=== PATIENT | female | born 1970 | race Caucasian/White ===

== ENCOUNTER 2022-01-23 15:46 | Outpatient (CLI) | payer BC, SELFPAY ==
--- OUTSIDE RECORDS SUMMARY | 2021-12-27 10:38 | XMS_ITS | Continuity of Care Document ---
:1970 Author Care Team Providers Name Role Phone MD Elian Garduno Primary Care Physician MD Keke Campos Primary Care Physician MD Keke Mendez Admitting Physician Chief Complaint and Reason for Visit Chief Complaint Sore Throat/Pharyngitis Reason for Visit [id number] Pharyngitis Health Concerns Concerns Review problems and other documentation throughout for health concerns. Allergies, Adverse Reactions, Alerts Allergen Type Severity Reaction Last Verified Status Updated Mannitol Allergy Moderate fevers, December 06, Yes Active myalgia, 2021 malaise, and local rash Glatiramer Allergy Moderate fevers, December 06, Yes Active myalgia, 2021 malaise, and local rash Social History Smoking Status Status Start Date End Date Date of Observat ion Ex-smoker (finding) December 07 3:47pm Observation Status Observation Response Date of Response History provided by Patient March 23, 2015 1:08pm Where do you live? Own home/apt March 23, 2015 1:08pm With whom do you live? Significant Other March 23 015 1:08pm Additional Data Assigned Sex Female Problems Active Problems Medical Problem Onset Date Status Endometriosis April 03, 2009 Active Hematochezia April 03, 2009 Active Hysterectomy November 05, 2012 Active Extended Spectrum Beta Lactamase January 17, 2014 Active MS (multiple sclerosis) Active Sepsis Active Allergic reaction caused by a Active drug Recurrent UTI (urinary tract Active infection) Subungual hematoma of digit of Active hand BV (bacterial vaginosis) Active Brain aneurysm Active Leukopenia Active History of shingles Active Strain of left biceps tendon Active On hormone replacement therapy Active Postcoital UTI Active Recurrent candidiasis of vagina Active Eczema Active Status post hysterectomy with Active oophorectomy H/O exploratory laparotomy Active Medications Medication Status Dose Units Route Directions Qty Days Start End Ins tructions Date Date Ascorbic Active 500 MG PO Daily 100 Acid (Vitamin C) 500 Mg TAB Aspirin Active 81 MG PO Daily 100 Biotin Active 1 MG PO Daily Calcium/Magn Active 1 EA PO Daily esium (Calcium & Magnesium 750-465 Mg) 1 Tab TAB Cholecalcife Active 2000 UNIT PO Daily 100 rol (Vitamin D) 2,000 Unit TAB Cranberry-Vi Active 1 CAP PO Daily tamin C-Vitamin E (Cranberry) CAP Cyanocobalam Active 1000 CR OR Daily in (Vitamin B12) 1,000 Cr TAB Dexamethason Active 6 MG PO Daily 18 09 December e 2021 6:35pm Estradiol Active 0.1 MG TD Twice 96 Februar q and (Vivelle-Dot Weekly y , SAT ) 0.1 Mg/24 2021 Hr DIS 2:04pm Magic Active 5 ML PO Four Times December SWISH, g argle AND SPIT Mouthwash Daily as November COM POUND IF FIRST PRODUCT NOT COVERED (Lidocaine/B needed 2021 for ph aryngitis enadryl/Maal 6:35pm ox) (First-Mouth wash Blm) Blm FCO Metronidazol Active 1 EACH PV Bedtime 70 5 Sept 1 e er APPLICATORFUL (Metronidazo , AT HS F OR 5 le Vaginal) 2019 0.75 % GEL 9:21am Multiple Active 1 HER OR Daily Vitamins W/ Minerals (Multi For Her) For Her TAB Nirmatrelvir Active 3 TAB PO Twice A Day 02 January eGFR > 60; TAKE TWO 150 MG NIRMATRELVIR AND ONE 100 MG -Ritonavir , RITONAVIR TWICE DAILY FOR 5 DAYS (Paxlovid 20 2021 X 150 Mg & 3:32pm 10 X 100MG) 1 Tab TAB Tamsulosin Active 0.4 MG PO Daily 01 February Hcl 2015 2:24pm Teriflunomid Active 14 MG PO Daily e (Aubagio) 14 Mg TAB Triamcinolon Active 1 CHEVY TOP Twice A Day 30 Februar e Acetonide y , (Cream) 2021 2:04pm Acetaminophe Disconti 1 TAB PO Every 4 Octobe n/Hydrocodon nued Hours as er r e Bitart needed , (Hydrocodone 2014 2014 -Acetaminoph 8:23am 9:12am en) 1 Tab TAB Acetaminophe Disconti 1 TAB PO Q4-6H Prn November n/Hydrocodon nued , , e Bitart 2012 2012 (Hydrocodone 1:59pm 2:42pm -Acetaminoph en) 7.5 Mg/325 Mg TAB Acetaminophe Disconti 1 TAB PO Q4-6H Prn November n/Hydrocodon nued , , e Bitart 2012 2012 (Hydrocodone 10:07am 1:59pm -Acetaminoph en) 7.5 Mg/325 Mg TAB Acetaminophe Disconti 1 TABLET PO Q4-6H Prn 20 Decem b FOR VICODIN n/Hydrocodon nued er 7.5/750 e Bitart , (Vicodin 2008 7.5/750) 7.5 10:15a Mg/750 Mg m TAB Amoxicillin Disconti 1 TABLET PO Twice Daily Se ptem & Pot nued For 7 Days er ole Clavulanate , (Augmentin) 2014 2014 875 Mg/125 10:27am 8:23am Mg TAB Antifungal Disconti Septem nued ole 2008 3:36pm Aspirin Disconti 325 MG PO Daily 100 Septem nued ole 2019 2:42pm Cephalexin Disconti 500 MG PO Four Times 28 Februar Febru a nued Daily y 2014, 1:41pm 2014 9:05am Ciprofloxaci Disconti 1 TABLET PO Twice A Day January tem n Hcl nued 2015, 2:29pm 2015 3:38pm Ciprofloxaci Disconti 1 TABLET PO Twice A Day September y n Hcl nued 2015 10:49am 2:29pm Ciprofloxaci Disconti 1 TABLET PO Twice Daily February ptem n Hcl nued For 7 Days 2014, 9:45am 2014 1:23pm Ciprofloxaci Disconti 1 TABLET PO Twice A Day December tem n Hcl nued 2013, 10:30am 2013 12:56p m Ciprofloxaci Disconti 500 MG PO Twice A Day 6 uar De cemb n Hcl nued y 24, er (Cipro) 500 2009 1st, Mg TAB 4:59pm 2009 3:23pm Clopidogrel Disconti 75 MG PO Daily 30 Marem Bisulfate nued ole (Plavix) 75 15th, Mg TAB 2019 2:42pm Diphenhydram Disconti 25-50 MG PO Every 6 Octobe ine Hcl nued Hours as er r needed 2014 8:23am 9:12am Diphtheria/T Disconti 0.5 ML IM Once Aprilobe etanus/Acell nued , r Pertussis 2011 05, (Adacel) 0.5 1:06pm 2010 Ml INJ 1:57pm Docusate Disconti 100 MG PO Twice A Day November Sodium nued as needed , , (Colace) 100 2012 2012 Mg CAP 10:07am 2:42pm Doxycycline Disconti 100 MG IV Octobe Hyclate nued r (Doxycycline , ) 100 Mg 2007 SOLN 9:10am Ertapenem Disconti 1000 MG IM Every 24 8 Octobe (Invanz) nued Hours er r 1,000 Mg/10 , Ml VIAL 2014 2014 8:23am 9:12am Estradiol Disconti 0.1 MG TD Twice 24 q TU ES and (Vivelle-Dot nued Weekly er ry SAT ) 0.1 Mg/24 , , Hr DIS 2020 2021 8:10am 2:04pm Estradiol Disconti 0.1 MG TD Twice Marem q TU ES and (Vivelle-Dot nued Weekly er ole SAT ) 0.1 Mg/24 , , Hr DIS 2019 2020 9:21am 8:10am Estradiol Disconti 0.1 MG TD Twice January q TUES and (Vivelle-Dot nued Weekly , ole SAT ) 0.1 Mg/24 2019, Hr DIS 1:01pm 2019 9:21am Estradiol Disconti 0.1 MG TD Twice October q TUES and (Vivelle-Dot nued Weekly , , SAT ) 0.1 Mg/24 2019 2019 Hr DIS 1:28pm 1:01pm Estradiol Disconti 0.1 MG TD Twice 24 October q TUES and (Vivelle-Dot nued Weekly , 27th, SAT ) 0.1 Mg/24 2018 2019 Hr DIS 3:00pm 1:28pm Estradiol Disconti 0.1 MG TD Twice 24 October q TUE S and (Vivelle-Dot nued Weekly y 25th, 1st, SAT ) 0.1 Mg/24 2018 2018 Hr DIS 12:31pm 3:00pm Estradiol Disconti 0.1 MG TD Twice 24 Decembe Februa q TU ES and (Vivelle-Dot nued Weekly r 19, ry SAT ) 0.1 Mg/24 2016, Hr DIS 5:27pm 2018 12:31p m Estradiol Disconti 1 PATCH TD Twice 24 mb Novemb Q TU ES & SAT (Vivelle-Dot nued Weekly r 1st, er ) 0.1 Mg DIS 2014, 9:34am 2015 11:37a m Estradiol Disconti 1 PATCH TD Twice April Q TU ES & SAT (Vivelle-Dot nued Weekly 30, er ) 0.1 Mg DIS 2014 07, 9:25am 2014 9:34am Estradiol Disconti 1 PATCH TD Twice 8 Aprobe Q TUES & SAT (Vivelle-Dot nued Weekly r ) 0.1 Mg DIS 2014 9:25am Estradiol Disconti 1 PATCH TD Twice (Vivelle-Dot nued Weekly er 9, ole ) 0.1 Mg DIS 2014, 3:41pm 2014 1:23pm Estradiol Disconti 1 PATCH TD Twice Aprilem (Vivelle-Dot nued Weekly 9, ole ) 0.1 Mg DIS 2014 03, 1:49pm 2014 3:41pm Estradiol Disconti 0.1 MG TD Twice (Vivelle-Dot nued Weekly er 9th, y ) 0.1 Mg DIS 2013, 1:40pm 2014 2:14pm Estradiol Disconti 1 PATCH TD Twice Aprobe (Vivelle-Dot nued Weekly er r 9, ) 0.1 Mg DIS 2013 1:49pm 1:15pm Estradiol Disconti 0.1 MG TD Twice December (Vivelle-Dot nued Weekly 11th, ole ) 0.1 Mg DIS 2012 9, 2:32pm 2013 1:40pm Estradiol Disconti 1 MG PO Daily Decemb nued y 24th, er 2009 07, 4:58pm 2009 3:23pm Estrogens Disconti 1.25 MG PO Daily Octoberem Conjugated nued 17, ole (Premarin) 2008, 1.25 Mg TAB 10:08am 2008 3:36pm Fluconazole Disconti 200 MG PO Daily December Lisa e 1 tab PO at the onset of symptoms, take a 2nd tab 3 nued y 14, 3rd, days later i f symptoms have not resolved. 2021 2021 2:14pm 12:56p m Fluconazole Disconti 200 MG PO Daily Ta ke 1 tab PO at the onset of symptoms, take a 2nd tab 3 nued er ry days later if symptoms have not resolved. , , 2019 2021 9:21am 2:14pm Fluconazole Disconti 200 MG PO Daily October Take 1 tab PO at the onset of symptoms, take a 2nd tab 3 nued , ole days later if symptoms have not resolved. 2019, 2:29pm 2019 9:21am Fluconazole Disconti 150 MG PO Once 2 October r epeat nu, dose after 72 2018 2019 hours if 3:00pm 8:13am symptoms persist Fluconazole Disconti 150 MG PO Once October repeat nued y , , dose after 7 2 2017 2019 hours if 7:20pm 3:00pm symptoms persist Fluconazole Disconti 150 MG PO Once 2 (Diflucan) nued r , y 150 Mg TAB 2016, 5:27pm 2017 4:15pm Fluconazole Disconti 150 MG PO Once 2 (Diflucan) nued er 150 Mg TAB 2016 5:27pm Fluconazole Disconti 150 MG PO Once 2 September lisa e one (Diflucan) nued r , , tablet today 150 Mg TAB 2015 2016 then repe at 11:37am 2:57pm in 3 days. Fluconazole Disconti 150 MG PO Once January take one (Diflucan) nued , er tablet to day 150 Mg TAB 2015, then repe at 2:24pm 2016 in 3 days. 11:37a m Fluconazole Disconti 150 MG PO Once September take one (Diflucan) nued , tablet to day 150 Mg TAB 2015 2015 then repe at 1:45pm 2:24pm in 3 days. Fluconazole Disconti 150 MG PO Once 2 Septem Ta ke one (Diflucan) nued er ole today and 150 Mg TAB , , repeat in 3 2014 2014 days. 10:27am 1:23pm Fluconazole Disconti 150 MG PO Once February Lisa e one (Diflucan) nued , ole today and 150 Mg TAB 2015 05, repeat in 3 11:30am 2014 days. 10:27a m Fluconazole Disconti 150 MG PO Once Julyr Ta ke one tab (Diflucan) nued , y today. 150 Mg TAB 2012, Repeat in 3 9:56am 2012 days if still 11:29a symptomatic. m Fosfomycin Disconti 3 G OR Once September Tromethamine nued , , (Monurol) 2014 2014 Granules FAB 5:43pm 9:36am Glatiramer Disconti 40 MG SC 3X Per Week Septem Acetate nued ole (Copaxone) , 40 Mg/Ml INJ 2014 8:23am Hydrocodone- Disconti 1-2 TAB PO Every 6 01 February Decemb Acetaminophe nued Hours as , er n (Bartley) 5 needed 2019 07, Mg/325 Mg 9:16pm 2020 TAB 8:52am Hydrocodone- Disconti 1-2 TAB PO Every 6 01 February Ca Acetaminophe nued Hours as , n (Bartley) 5 needed 2019 2019 Mg/325 Mg 11:16am 9:16pm TAB Ibuprofen Disconti 800 MG PO Every 6 December nued Hours as , needed 2021 12:56p m Ibuprofen Disconti 800 MG PO Three Times September nued A Day as , needed for 2019 2019 Pain 8:50am 3:18pm Ibuprofen Disconti 600 MG PO Every 6 November nued Hours , , 2012 2012 10:07am 3:12pm Influenza Disconti 0.5 ML IM Once 05 April Octobe Virus nued 30, r Vaccine 2015 30th, Split 9:37am 2014 (Fluzone 9:38am Quadrivalent (3 Yrs And Older)2015-1 6) 1 Inj INJ Interferon Disconti 1 0.5 SC 3XWEEK Septem Beta-1A nued ole (Rebif) 18th, 22/0.5 INJ 2015 1:23pm Interferon Disconti 1 SC 3 Times Per October Beta-1A nued Week 19, (Rebif) INJ 2012 4:05pm Lactobacillu Disconti 1 EA PO Daily Novemb s nued er (Acidophilus 5th, ) TAB 2014 9:30am Leuprolide Disconti 11.25 MG IM Once July Acetate nued 3rd, y 3rd, (Cpp) 2010 2010 (Lupron 3:53pm 4:06pm Depot-Ped) 11.25 Mg INJ Leuprolide Disconti 11.25 MG IM Once Aprilobe Acetate nued 7th, r 7th, (Cpp) 2009 2009 (Lupron 4:04pm 4:16pm Depot-Ped) 11.25 Mg INJ Leuprolide Disconti 11.25 MG IM Once January Acetate nued 2nd, 2nd, (Cpp) 2009 2009 (Lupron 11:24am 11:26a Depot-Ped) m 11.25 Mg INJ Leuprolide Disconti 11.25 MG IM Every 3 October Acetate nued Minutes 1st, 1st, (Cpp) 2009 2009 (Lupron 11:16am 11:18a Depot-Ped) m 11.25 Mg INJ Leuprolide Disconti 11.25 MG IM Once Aprilobe Acetate nued nd, r (Cpp) 2008, (Lupron 3:48pm 2008 Depot-Ped) 3:55pm 11.25 Mg INJ Levonorgestr Disconti 1 EA IU Once October el (Mirena) nued 15, 15th, 20 Mcg/24 Hr 2010 2010 IUD 11:33am 11:35a m Medroxyproge Disconti 150 MG IM Once Julyr sterone nued 14, y Acetate 2009 14, (Depo-Career Development Facilitator 4:06pm 2009 a 4:07pm Contraceptiv e) 150 Mg/Ml INJ Medroxyproge Disconti 150 MG IM Once October sterone nued 17th, 17th, Acetate 2008 2008 (Depo-Career Development Facilitator 10:03am 10:05a a m Contraceptiv e) 150 Mg/Ml INJ Medroxyproge Disconti 150 MG IM Once sterone nued r , y Acetate 2007, (Depo-Career Development Facilitator 1:05am 2008 a 2:52pm Contraceptiv e) 150 Mg/Ml INJ Medroxyproge Disconti 150 MG IM Once July sterone nued , y Acetate 2008, (Depo-Career Development Facilitator 2:41pm 2008 a 2:42pm Contraceptiv e) 150 Mg/Ml INJ Medroxyproge Disconti 150 MG IM Once sterone nued r , er Acetate 2008 06, (Depo-Career Development Facilitator 9:35am 2007 a 9:37am Contraceptiv e) 150 Mg/Ml INJ Metronidazol Disconti 1 EACH PV Bedtime 70 October 1 e nued , ole APPLICATORFUL (Metronidazo 2019, AT HS F OR 5 le Vaginal) 2:29pm 2019 DAYS 0.75 % GEL 9:21am Metronidazol Disconti 1 EACH PV Bedtime OctoberOctober 04 e nued , APPLICATORFUL (Metronidazo 2018 2019 AT HS F OR 5 le Vaginal) 3:00pm 2:29pm DAYS 0.75 % GEL Metronidazol Disconti 1 EACH PV Bedtime 70 DecembOctober 04 e nued r , APPLICATORFU L (Metronidazo 2016 2018 AT HS F OR 5 le Vaginal) 8:46am 3:00pm DAYS 0.75 % GEL Metronidazol Disconti 1 EACH PV Bedtime 70 Decemb e nued er APPLICATORFUL (Metronidazo , AT HS F OR 5 le Vaginal) 2016 DAYS 0.75 % GEL 8:46am Metronidazol Disconti 1 EACH PV Bedtime 70 Sept 1 e nued er y APPLICATORFUL (Metronidazo , , AT HS F OR 5 le Vaginal) 2011 2012 DAYS 0.75 % GEL 11:00am 11:29a m Metronidazol Disconti 500 MG PO Twice A Day De cemb e nued er er 2009 2:12pm 3:23pm Metronidazol Disconti 500 MG PO Twice A Day July brua e nued , ry 2009, 4:09pm 2009 2:56pm Metronidazol Disconti 500 MG PO Twice A Day 14 be e nued r 2007 9:10am Metronidazol Disconti 1 CHEVY PV Bedtime 70 uar September 03 e Vaginal nued y , , APPLICAT ORFUL (Metrogel 2017 2019 PV AT BEDT NEVA Vaginal) 5:40pm 8:13am 0.75 % GEL Metronidazol Disconti 1 CHEVY PV Bedtime 70 Februar Februa 1 e Vaginal nued y , APPLICAT ORFUL (Metrogel 2017, PV AT BEDT NEVA Vaginal) 7:19pm 2017 0.75 % GEL 5:40pm Metronidazol Disconti 1 CHEVY PV Bedtime 60 September 03 e Vaginal nued r , , APPLICAT ORFUL (Metrogel 2015 2016 PV AT BEDT NEVA Vaginal) 11:37am 2:57pm 0.75 % GEL Metronidazol Disconti 1 X VA Qhs X7 Days October em 1 APPLICATOR e Vaginal nued , ole FULL PV (Metrogel 2011, Vaginal) 4:49pm 2011 0.75 % GEL 10:35a m Misoprostol Disconti 200 MCG PV Once September (Cytotec) nued , , 200 Mcg TAB 2010 2010 11:41am 10:37a m Nitrofuranto Disconti 100 MG PO Twice A Day Ap ril in nued r , , Macrocrystal 2010 2011 s (Macrobid 12:00pm 4:04pm 100 Mg) 100 Mg CAP Nitrofuranto Disconti 100 MG PO Twice A Day Septemberi l in nued , , Macrocrystal 2010 2010 s (Macrobid 9:19pm 10:37a 100 Mg) 100 m Mg CAP Nitrofuranto Disconti 100 MG PO Twice A Day July brua in ed 13th, ry Macrocrystal 2009 24th, s (Macrobid 10:50am 2009 100 Mg) 100 2:56pm Mg CAP Nitrofuranto Disconti 100 MG PO Twice A Day 7 No vemb in nued r 11th, er Macrocrystal 2008, s (Macrobid 12:56pm 2008 100 Mg) 100 3:10pm Mg CAP Nitrofuranto Disconti 100 MG PO Twice A Day December in ed , , Macrocrystal 2008 2008 s (Macrobid 1:17pm 2:44pm 100 Mg) 100 Mg CAP Nitrofuranto Disconti 100 MG PO Twice A Day February e in [facility] , , Monoh/Nitrof 2020 2021 ur Macro 4:46pm 12:56p (Nitrofurant m oin Monohydrate/ Macrocrystal line) 100 Mg CAP Nitrofuranto Disconti 100 MG PO Twice A Day 14 Ma rch in [facility] er , Monoh/Nitrof 2016 ur Macro 2016 2:57pm (Macrobid) 3:59pm 100 Mg CAP Nitrofuranto Disconti 100 MG PO Twice A Day 30 Oc doris Take 1 pill in [facility] as needed er r after sexu al Monoh/Nitrof , , interco urse ur Macro 2014 2014 (Macrobid) 9:08am 9:12am 100 Mg CAP Nitrofuranto Disconti 100 MG PO Twice Daily Se ptem in [facility] For 7 Days er 8th, ole Monoh/Nitrof 2014, ur Macro 2:57pm 2014 (Macrobid) 1:23pm 100 Mg CAP Nitrofuranto Disconti 100 MG PO Twice A Day 6 uar Ap ril in nu y , , Monoh/Nitrof 2014 2014 ur Macro 10:23am 9:36am (Macrobid) 100 Mg CAP Nitrofuranto Disconti 100 MG PO Twice A Day 14 Decembe Se ptem in nued r 5th, ole Monoh/Nitrof 2012, ur Macro 2:47pm 2013 (Macrobid) 12:56p 100 Mg CAP m Nitrofuranto Disconti 100 MG PO Bid X7day July ua in nued , ry Monoh/Nitrof 2012, ur Macro 12:36pm 2012 (Macrobid) 8:27am 100 Mg CAP Nitrofuranto Disconti 100 MG PO Bid X7day Julu ar in nued er y Monoh/Nitrof , , ur Macro 2011 2012 (Macrobid) 11:00am 11:29a 100 Mg CAP m Norethindron Disconti 1 TABLET PO Daily January e-Ethinyl nued , ole Estradiol 2008, (0.4/35) 3:06pm 2008 (Ovcon-35) 2:42pm 0.4 Mg/0.035 Mg TAB Iafut-7-Baul Disconti 1200 MG PO Daily December Ethyl Esters nued , (Fish Oil) 2019 1,200 Mg CAP 3:18pm Oseltamivir Disconti 75 MG PO Twice A Day July luis armando Phosphate nued , ry (Tamiflu) 75 2017, Mg CAP 4:27pm 2017 6:45pm Oxycodone/Ac Disconti 1-2 TAB PO Every 4 October etaminophen nued Hours as , , (Percocet) 5 needed 2016 2016 Mg/325 Mg 4:22pm 11:00a TAB m Oxycodone/Ac Disconti 1 - 2 TAB PO Q6hrs For Aprilo be etaminophen nued Pain as 4th, r 9th, (Percocet) 5 needed 2007 2007 Mg/325 Mg 11:44am 3:04pm TAB Phenazopyrid Disconti 100 MG PO Three Times Se ptem ine Hcl nued A Day as er , ole (Pyridium) needed 2015, 100 Mg TAB 1:51pm 2015 3:38pm Prednisone Disconti 20 MG PO Twice A Day 10 Decembe Faustino h nued r , 2020 9:03am 3:31pm Prednisone Disconti 20 MG PO Twice A Day 10 Februar Dece mb nued y , er 2020 07, 11:30am 2020 8:52am Prednisone Disconti 20 MG PO Twice A Day Decemberem nued , ole 2019, 3:37pm 2019 8:57am Prednisone Disconti 20 MG PO Twice A Day 10 Decembe Febr ua nued r 23, ry 2015 16, 3:05pm 2016 4:07pm Sulfamethoxa Disconti 1 TAB PO Daily 60 Februadecember Ta ke daily zole-Trimeth nued y , when you have oprim 2021 2021 intercourse (Bactrim Ds) 2:14pm 12:56p 800 Mg/160 m Mg TAB Sulfamethoxa Disconti 1 TAB PO Daily 100 Sept Decemb T jennifer one tab zole-Trimeth nued er er PO brynn y oprim , , after each (Bactrim Ds) 2019 2020 episode of 800 Mg/160 9:21am 8:52am interco urse Mg TAB Sulfamethoxa Disconti 1 TAB PO Once as October 1 Tab PO zole-Trimeth nued needed , , daily on days oprim 2018 2019 you have (Bactrim Ds) 3:00pm 8:13am inter course 800 Mg/160 to preven t Mg TAB uti's Sulfamethoxa Disconti 1 TAB PO Once as October one tablet by mouth with intercourse. if develops zole-Trimeth nued needed y , sign s or symptoms of UTI then may increase to twice daily oprim 2017 2018 for 7 days. (Bactrim Ds) 5:40pm 3:00pm 800 Mg/160 Mg TAB Sulfamethoxa Disconti 1 TAB PO Twice A Day 14 7 Fe brua zole-Trimeth nued y oprim 2017, (Bactrim Ds) 7:15pm 2017 800 Mg/160 5:40pm Mg TAB Sulfamethoxa Disconti 1 TAB PO Twice A Day 30 09 January Dece mb Take 1 tab po BID x7 days w/ UTI. Take 1 tab po daily on zole-Trimeth nued , er at you have intercourse. oprim 2016, (Bactrim Ds) 2:33pm 2016 800 Mg/160 3:14pm Mg TAB Sulfamethoxa Disconti 1 TAB PO Daily 40 Novembe Februa t jennifer one tablet daily when you have intercourse. Increase zole-Trimeth nued r , ry to 1 tab BID for 7days for uti symptoms oprim 2015, (Bactrim Ds) 11:37am 2016 800 Mg/160 4:07pm Mg TAB Sulfamethoxa Disconti 1 TAB PO Twice A Day Se ptem zole-Trimeth nued er , ole oprim 2015, (Bactrim Ds) 1:51pm 2015 800 Mg/160 3:38pm Mg TAB Sulfamethoxa Disconti 1 TABLET PO Twice A Day uar A pril zole-Trimeth nued y , , oprim 2014 2014 (Bactrim Ds 9:30am 9:36am (800/160)) 800 Mg/160 Mg TAB Sulfamethoxa Disconti 1 TAB PO Twice A Day Januaryo be zole-Trimeth nued , r , oprim 2013 2013 (Bactrim Ds) 5:39pm 8:05am 800 Mg/160 Mg TAB Sulfamethoxa Disconti 1 TAB PO Twice A Day October l zole-Trimeth nued , , oprim 2011 2011 (Bactrim Ds) 11:33am 4:04pm 800 Mg/160 Mg TAB Tamsulosin Disconti 0.4 MG PO Daily 02 October Hcl nued 2016 2:57pm Tamsulosin Disconti 0.4 MG PO Daily July Hcl nued , , 2015 2015 8:31am 2:24pm Tamsulosin Disconti Unknow PO Daily 30 Hcl nued n Dose ry 2014 4:09pm Tramadol Hcl Disconti 50-100 MG PO Every 6 January nued Hours as , , needed 2019 2021 4:09pm 12:56p m Tramadol Hcl Disconti 50-100 MG PO Every 6 November Decemb nued Hours as , er needed 2016, 11:31am 2016 3:14pm Triamcinolon Disconti 40 MG INJ Once September e Acet nued , , (Kenalog-40) 2019 2019 40 Mg/1 Ml 8:44am 8:57am SUSP Triamcinolon Disconti 1 CHEVY TOP Twice A Day Fe brua e Acetonide nued er ry (Cream) , 2019 9:21am 2:04pm Triamcinolon Disconti 1 CHEVY TOP Twice A Day October em e Acetonide nued (Cream) 2019, 2:29pm 2019 9:21am Triamcinolon Disconti 1 CHEVY TOP Twice A Day October l e Acetonide nued , (Cream) 2018 2019 3:00pm 2:29pm Triamcinolon Disconti 1 CHEVY TOP Twice A Day be Ap ril e Acetonide nued r , (Cream) 2015 2018 11:37am 3:00pm Triamcinolon Disconti 1 CHEVY TOP Twice A Day 17 January Nove mb e Acetonide nued , er (Cream) 2015, 2:24pm 2015 11:37a m Triamcinolon Disconti 1 CHEVY TOP Twice A Day September e Acetonide nued , (Cream) 2015 2015 1:45pm 2:24pm Trimethoprim Disconti 1 TAB PO Twice A Day January be /Sulfamethox nued , r , azole 2010 2010 (Bactrim Ds) 5:39pm 2:36pm 800 Mg/160 Mg TAB Immunizations Immunization Event Date Not Given Dose Nuclear Process 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 Lot Vac cine Reason Number Number Informatio n Statement (VIS) Deta il DTaP January 111979 Influenza April 05, 2010 Influenza April 07 Sanofi 2014 Influenza May 062009 IPV Peds January 111979 Tetanus/Diptheri January 15 a 1982 Tdap April 05 sanofi pasteur [id number] (adolescent/adul 2010 t) Procedures Procedure Date Performed Status METABOLIC PANEL TOTAL CA December 06, 2021 completed SARS-COV-2 COVID-19 AMP PRB December 06, 2021 completed EMERGENCY DEPT VISIT December 07, 2021 completed THER/PROPH/DIAG INJ IV PUSH December 07, 2021 completed TX/PRO/DX INJ NEW DRUG ADDON December 07, 2021 completed IV SOLUTION December 07, 2021 completed DEXAMETHOSONE December 07, 2021 completed SELF ADMINISTERED DRUG December 07, 2021 completed KETOROLAC TROMETHAMINE INJECTION December 07, 2021 complet ed Relevant Diagnostic Tests and/or Laboratory Data Laboratory Results Test Date/Time Result Interpretation Reference Result Perfo rming Site Range Comment Random December 06, 78 60-115 [facility] Glucose [address] [facility] 1:50pm [place] [address] Blood Urea December 06, 13 5-24 [facility] Nitrogen [address] [facility] 1:50pm [place] [address] Creatinine December 06, 0.7 0.5-1.5 [facility] [address] [facility] 1:50pm [place] [address] Estimated December 06, [id number] [facility] Creatinine 2021 [address] [facility] Clearance 1:50pm [place] [address] Sodium Level December 06, 136 135-149 [facility] [address] [facility] 1:50pm [place] [address] Potassium December 06, 3.4 3.6-5.1 [facility] Level [address] [facility] 1:50pm [place] [address] Chloride December 06, 100 96-114 [facility] Level [address] [facility] 1:50pm [place] [address] Carbon December 06, 30 20-32 [facility] Dioxide [address] [facility] Level 1:50pm [place] [address] Calcium December 06, 8.8 8.4-10.6 [facility] Level [address] [facility] 1:50pm [facility] [address] Coronavirus December 06, POSITIVE NEGATIVE The 2019 [facility] (COVID-19)(P 2021 SARS-CoV- novel [address] [facility] [address]) 2:08pm 2 coronavirus [place] [address] (SARS-CoV-2) target nucleic acids are detected by RT-PCR. Vital Signs Vital Reading Result Reference Range Collection Date/ Time Height 67 [in_i] December 06, 2021 1 2:51pm Height 170.18 cm December 06, 2021 1 2:51pm Weight 180 [lb_av] December 06, 2021 1 2:51pm Weight 81.089790 kg December 06, 2021 1 2:51pm Body Temperature 97.2 [degF] December 06, 2021 12:51pm Body Temperature 36.22 Kya December 06, 2021 12:51pm BP Systolic 100 mm[Hg] December 06, 2021 1 2:51pm BP Diastolic 65 mm[Hg] December 06, 2021 1 2:51pm Heart Rate 84 /min December 06, 2021 1 2:51pm Respiratory rate 14 /min December 06, 2021 12:51pm Body surface area 1.93 m2 December 06, 2021 12:51pm BMI (Body Mass Index) 28.2 kg/m2 December 06, 2021 12:51pm Advance Directives Advance Directive Response Recorded Date/Time Does Pt have Health Care No September 26 1:20pm Directive? Has patient completed a No December 07, 2021 3 :47pm Health Care Directive? Insurance Providers Guarantor Eliz Roth Address 1992 [address] [facility] [address] Contact Info. Home Phone: Payer Policy Id Coverage Id Subscriber's Subscriber Id Effective E xpiration Name Date Date Parker [id number] GonzalezJuly 06, [facility] [address] Eliz Simmons 2019 [id number] Encounters Encounter Location(s) Arrival/Admit Date Discharge/Depart Date Provider(s) Departed [facility] December 07, 2021 December 07, 2021 7:07pm [facility] 5:01pm MD Registered [place] December 06, 2021 [facility] 1:30pm A Registered [facility] December 06, 2021 [facility] 1:00pm A Office Visit [place] December 06, 2021 [facility] 1:00pm A Recent Diagnosis Onset Date COVID-19 Functional Status Observation Response Date Recorded Functional Status Independent March 23, 2015 12:46pm Mental Status Observation Response Date Recorded Cognitive Status Alert March 23, 2015 12:46pm Oriented March 23, 2015 12:46pm Assessments Assessment/Plan:COVID-19 infection: She is prescribed Paxlovid in the usual dose for five days. She can continue to use Tylenol and ibuprofen. Plan of Treatment Instructions from visit on: 12/06/21 Please follow the provider's instructions as discussed during your visit. Future Tests Future scheduled test information is unavailable Pending Tests Pending diagnostic test information is unavailable Future Visits Future appointment information is unavailable Referrals to Other Providers Reason for Referral Start Provider Provider Contact Provider Address Referral Date Information Shoaib Garduno Work Phone: [phone] MD [facility] [id number] Saurabh Campos Phone: [facility] Jacobo Davies MD [address] [facility] [phone] Future Procedures Procedure Name Scheduled Date Colonoscopy Diagnostic BABS Bilat Mammo Scrn Future Medications Future medication information is unavailable Patient Instructions Attached Discharge Info Diphenhydramine (By mouth) Ertapenem (By injection) Extended Spectrum Beta Lactamase (GEN) General Allergic Reaction (ED) Goals Ambulatory Goals Reach or maintain optimal well being.
--- NOTE | 2022-01-23 15:45 | CRLHL7_ITS ---
For Patients: As a result of the Century Cures Act, medical imaging exams and procedure reports are released immediately into your electronic medical record. You may view this report before your referring provider. If you have questions, please contact your health care provider. BILATERAL MAMMOGRAM WITH COMPUTER-AIDED DETECTION AND TOMOSYNTHESIS TECHNIQUE: CC and MLO views were obtained. These mammographic images have been obtained using full-field digital technique. These mammographic images were interpreted with the benefit of computer-aided detection. Breast Tomosynthesis was used in this interpretation. COMPARISON FILM: 09/18/2020, 07/22/2019, 07/20/2018. FINDINGS: There are scattered areas of fibroglandular density IMPRESSION: There is no radiographic evidence for malignancy. ASSESSMENT: BI-RADS Category 1: Negative RECOMMENDATION: Routine screening mammogram in 1 year. A lay language report of this examination will be provided to the patient. Jax Randolph M.D. Diagnostic Radiologist [email or web address] OLIVER/[email or web address] buck/Dictated by: Jax Randolph MD @ 01/24/2022 8:38:00 AM (Electronically Signed)
== END 2022-01-23 15:47 | disposition home or self-care (01) ==
LOC: MAMMO 15:47
PROVIDERS: PCP Internal Medicine; Visit Provider Obstetrics & Gynecology
DX: Z12.31 Encounter for screening mammogram for malignant neoplasm of breast (principal)
CPT/HCPCS: 77063; 77067

== ENCOUNTER 2022-05-16 09:02 | Outpatient (CLI) | payer BC, SELFPAY ==
--- NOTE | 2022-05-16 09:15 | CRLHL7_ITS ---
For Patients: As a result of the Cures Act, medical imaging exams and procedure reports are released immediately into your electronic medical record. You may view this report before your referring provider. If you have questions, please contact your health care provider. INDICATION: Follow up multiple sclerosis. TECHNIQUE: Brain MRI without contrast. The following sequences were obtained: Sagittal T1 weighted sequence. DWI and ADC mapping sequences. Axial FLAIR and RAJEEV T2 weighted sequences. COMPARISON: Brain MRI from 07/22/2019. FINDINGS: Large confluent zone of FLAIR hyperintense signal abnormality within the right peritrigonal white matter/centrum semiovale with mild associated volume loss and low T1 signal. Mild ex vacuo dilatation of the right lateral ventricular atrium. Multiple additional smaller oval FLAIR hyperintense lesions within the supratentorial white matter, with many exhibiting a perpendicular orientation to the ventricular system. A few tiny juxtacortical and intermediate deep FLAIR hyperintense lesions as well. These are all stable in appearance compared to the prior exam. Few tiny FLAIR hyperintense lesions within the left superior cerebellar peduncle and brachium pontis. No evidence of acute ischemia. No mass effect or herniation. No hydrocephalus or extra-axial collections. The pituitary gland, parasellar structures and optic chiasm are normal. All the major intracranial vascular structures demonstrate normal flow-related signal. The orbital contents are normal. No calvarial or skull base marrow replacing process. No obstructive sinus disease. No extracranial soft tissue findings. IMPRESSION: 1. Stable examination compared to 07/22/2019. Multiple FLAIR hyperintense lesions within the supratentorial white matter, and to lesser extent the posterior fossa which are compatible with chronic demyelinating plaques in the appropriate clinical setting. There is a large lesion within the right peritrigonal white matter/centrum semiovale with accompanying encephalomalacia which could reflect a large chronic demyelinating plaque or site of chronic subcortical infarct. 2. No evidence of acute ischemia or other acute intracranial pathology. Dictated by Duane Silva MD @ 05/16/2022 12:12:42 PM (Electronically Signed)
--- NOTE | 2022-05-16 10:15 | CRLHL7_ITS ---
For Patients: As a result of the Century Cures Act, medical imaging exams and procedure reports are released immediately into your electronic medical record. You may view this report before your referring provider. If you have questions, please contact your health care provider. INDICATION: Aneurysm follow-up. TECHNIQUE: 3D [id number] magnetic resonance angiography of the head with 3D MIP reconstructions provided. COMPARISON: Brain MRA from 04/03/2021. FINDINGS: Susceptibility artifact anterior communicating artery region from known coiled aneurysm. No new aneurysms elsewhere. No proximal large vessel occlusion. The proximal anterior cerebral arteries are not characterized on this exam due to artifact. The mid to distal portions of the anterior cerebral arteries are patent. The left anterior cerebral artery is dominant. The middle cerebral arteries are patent. The posterior cerebral arteries are patent. The intradural vertebral arteries and basilar artery are patent. The intracranial internal carotid arteries are patent. IMPRESSION: 1. 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 No new aneurysms. 2. Major intracranial arterial vasculature is patent. Dictated by Duane Silva MD @ 05/16/2022 12:31:40 PM (Electronically Signed)
== END 2022-05-16 09:03 | disposition home or self-care (01) ==
LOC: MRI 09:03
PROVIDERS: PCP Internal Medicine; Visit Provider Internal Medicine
DX: G35 Multiple sclerosis (principal); I67.1 Cerebral aneurysm, nonruptured
CPT/HCPCS: 70544; 70551

== ENCOUNTER 2022-07-29 12:40 | Outpatient (CLI) | payer BC, SELFPAY ==
--- NOTE | 2022-07-29 13:00 | MR_ITS ---
[address] [address] Phone:?[phone] Fax:?[phone] Referring Physician Information: Sunil Desouza M.D. [address] [employer] [facility] [address] Phone:?[phone] Fax:?[phone] Patient:Romel Roth D.O.B:?1970 Sex:?Female Phone:?[phone] [facility] MRN:?[id number] Exam Date:?07/29/2022 ? EXAM: MRI of the RIGHT SHOULDER, without contrast CLINICAL: Right shoulder pain with history of rotator cuff repair 2017. Evaluate for rotator cuff tear. COMPARISONS: MRI 09/05/2016. TECHNICAL: MRI sequences of the right shoulder: Axials: PD, PDFS Coronals: PD, T2FS Sagittals: PDFS, T2 SEDATION: None. CONTRAST: None. FINDINGS: Rotator cuff: Supraspinatus/Infraspinatus: High-grade partial articular surface tearing of the distal supraspinatus tendon extends into the junction with the anterior distal supraspinatus tendon, increased compared to prior exam. Mild partial interstitial tearing of the remainder of the infraspinatus tendon appears similar to prior exam. Tendinosis of the distal supraspinatus and infraspinatus tendons appears similar to prior exam. No significant fatty atrophy of the muscle bellies. Teres minor: No tendinosis, tear or atrophy. Subscapularis: Attenuation and irregularity of the distal tendon likely reflects a combination of postop changes and sequelae of prior tendon tearing, with surgical anchors in place at the humeral attachment site of the distal tendon. There is no evidence of full-thickness or retracted tendon tear. There is moderate fatty atrophy of the subscapularis muscle belly about the myotendinous junction, increased compared to prior exam. Bursae: Subacromial-subdeltoid: Minimal bursal fluid. Subcoracoid: No convincing subcoracoid bursal thickening/bursitis. Coracoacromial arch: Acromion morphology: Postoperative changes of prior acromioplasty. Acromiohumeral space: Within normal limits. Coracohumeral space: Within normal limits. Biceps tendon, long head: Postoperative changes of prior biceps tenodesis with biceps tendon fibers seen to extend to the surgical anchor within the proximal humerus. Glenohumeral joint: Physiologic volume of joint fluid. Articular cartilage: Small segment of full-thickness chondral loss involves the superior humeral head as seen on coronal series 4 images 14-15, new compared to prior exam. High-grade chondral loss involving the superior glenoid as seen on coronal series 4 image 13-14, new compared to prior exam. Capsule: No convincing evidence of capsular thickening or injury. Labrum: New postoperative changes are seen to involve the superior labrum. Remainder of the glenoid labrum appears intact as visualized on this nonarthrogram exam. No perilabral cyst identified. Bones: No suspicious marrow signal alteration, fracture or dislocation. There are postoperative changes of prior distal subscapularis tendon repair surgery with associated surgical anchors in place at the anterior humeral attachment site of the distal tendon. There is reactive marrow edema involving the greater tuberosity of the proximal humerus. Subchondral cystic change is seen to involve the superior glenoid, increased compared to prior exam. Acromioclavicular joint: Mild to moderate changes of arthrosis, increased compared to prior examination. No new AC joint injury/widening. IMPRESSION: 1. Postoperative changes of prior distal subscapularis tendon repair surgery. Appearance of the distal subscapularis tendon likely reflects a combination of postoperative changes and sequelae of prior tendon tearing without full- thickness or retracted tendon tear identified. Moderate fatty atrophy involving subscapularis muscle about the myotendinous junction is increased compared to prior exam. 2. High-grade partial tearing of the distal supraspinatus tendon extending into the junction with the anterior distal infraspinatus tendon is increased compared to prior examination. Mild partial interstitial tearing of the remainder of the infraspinatus tendon is similar to prior exam and tendinosis of the distal supraspinatus and infraspinatus tendons similar to prior exam. 3. Postoperative changes of prior acromioplasty. 4. Postoperative changes of prior biceps tenodesis. 5. Small segment of full-thickness chondral loss involving the superior humeral head, new compared to prior exam. High-grade chondral loss involving the superior glenoid is also new compared to prior examination with underlying subchondral cystic change. 6. Mild to moderate AC joint arthrosis, increased compared to prior exam. JCZ Electronically signed on 07/29/2022 4:55:00 PM by Jhony Ames D.O.
== END 2022-07-29 12:41 | disposition home or self-care (01) ==
LOC: MRI 12:41
PROVIDERS: PCP Internal Medicine; Visit Provider Orthopaedic Surgery Sports Medicine
DX: M25.511 Pain in right shoulder (principal); M75.101 Unspecified rotator cuff tear or rupture of right shoulder, not specified as traumatic; M19.011 Primary osteoarthritis, right shoulder
CPT/HCPCS: 73221

== ENCOUNTER 2023-05-07 15:03 | Outpatient (CLI) | payer BC, SELFPAY ==
--- NOTE | 2023-05-07 15:20 | CRLHL7_ITS ---
For Patients: As a result of the Cures Act, medical imaging exams and procedure reports are released immediately into your electronic medical record. You may view this report before your referring provider. If you have questions, please contact your health care provider. BILATERAL SCREENING MAMMOGRAM WITH COMPUTER-AIDED DETECTION AND TOMOSYNTHESIS TECHNIQUE: CC and MLO views were obtained. These mammographic images have been obtained using full-field digital technique. These mammographic images were interpreted with the benefit of computer-aided detection. Breast Tomosynthesis was used in this interpretation. COMPARISON FILM: 01/23/22, 09/18/20, 07/22/19. FINDINGS: There are scattered areas of fibroglandular density IMPRESSION: There is no radiographic evidence for malignancy. ASSESSMENT: BI-RADS Category 1: Negative RECOMMENDATION: Routine screening mammogram in 1 year. A lay language report of this examination will be provided to the patient. Jax Randolph M.D. Diagnostic Radiologist [email or web address] Transcribed: 1:03 p.vasquez buck/Dictated by: Jax Randolph MD @ 05/08/2023 10:00:00 AM (Electronically Signed)
== END 2023-05-07 15:04 | disposition home or self-care (01) ==
LOC: MAMMO 15:03
PROVIDERS: PCP Internal Medicine; Visit Provider Internal Medicine
DX: Z12.31 Encounter for screening mammogram for malignant neoplasm of breast (principal)
CPT/HCPCS: 77063; 77067

== ENCOUNTER 2023-06-25 13:30 | Outpatient (CLI) | payer OTHER, BC, SELFPAY ==
--- NOTE | 2023-06-25 13:45 | CRLHL7_ITS ---
For Patients: As a result of the Century Cures Act, medical imaging exams and procedure reports are released immediately into your electronic medical record. You may view this report before your referring provider. If you have questions, please contact your health care provider. Indication: Sciatica. Technique: Multiplanar, multisequence MRI of the lumbar spine was performed without intravenous contrast. Comparison: None relevant available. Findings: There are 5 lumbar type vertebral segments identified. The vertebral body heights are maintained without evidence of fracture. There is no discrete T1 hypointense marrow infiltrating process. Partially visualized T11 vertebral body hemangioma. The conus medullaris terminates at L1-2, normal. Cauda equina appears unremarkable. T12-L1: No spinal canal or neural foraminal stenosis. L1-2: No spinal canal or neural foraminal stenosis. L2-3: Right foraminal disc protrusion resultant mild neural foraminal narrowing. Mild left neural foraminal narrowing secondary to disc bulge and facet hypertrophy. L3-4: Right foraminal disc protrusion results in mild to moderate neural foraminal narrowing. Mild left neural foraminal narrowing. No spinal canal narrowing. L4-5: Disc bulge with facet hypertrophy results in mild spinal canal. Mild neural foraminal narrowing secondary to disc bulging and facet arthropathy. L5-S1: Disc bulge combined with facet hypertrophy results in mild spinal canal narrowing. Moderate to severe left and [id number] right neural foraminal narrowing. Mild sacroiliac joint osteoarthritis. Impression: 1. At L2-3, small right foraminal disc protrusion with mild neural foraminal narrowing. 2. At L3-4, right foraminal disc protrusion resulting in mild to moderate neural foraminal narrowing. 3. At L4-5, mild spinal canal and neural foraminal narrowing. 4. At L5-S1, moderate to severe left and mild to moderate right neural foraminal narrowing. Dictated by Christopher Beatty MD @ 06/26/2023 11:35:44 AM (Electronically Signed)
== END 2023-06-25 13:31 | disposition home or self-care (01) ==
LOC: MRI 13:36
PROVIDERS: PCP Internal Medicine; Visit Provider Internal Medicine
DX: M54.30 Sciatica, unspecified side (principal); M51.26 Other intervertebral disc displacement, lumbar region; M51.27 Other intervertebral disc displacement, lumbosacral region
CPT/HCPCS: 72148

== ENCOUNTER 2023-06-27 21:29 | Emergency (ER) | payer OTHER, BC, SELFPAY ==
[2023-06-27 21:36] VITALS: BP 121/83; PULSE 86; RESP 16; TEMP 35.7; O2SAT 98
--- NOTE | 2023-06-27 23:28 | ED_ITS ---
HPI - Extremity Injury (Lower) General Time Seen by Provider: 23:28 Date Seen: 06/27/23 Chief Complaint: Extremity Pain/Injury, Lower Stated Complaint: left hip and leg pain Time Seen by Provider: 06/27/23 23:27 Source: patient, RN notes reviewed and old records reviewed Mode of arrival: ambulatory Limitations: no limitations History of Present Illness HPI Narrative: This 52-year-old female is coming in with complaint of severe left gluteus and back of leg pain. She is also feeling in her groin. She is getting pain down to her knee. Her leg will feel numb and tingly all the way down to the foot. She had an injury about 3 weeks ago, did have an MRI. I reviewed the MRI. She initially was on tramadol, is now oxycodone, it is not helping. She has a history of a brain bleed from an aneurysm, avoids NSAIDs and blood thinners. She states she has not taken prednisone yet. She is awaiting a call from Dr. Gamez for possible injection. She notes no bowel or bladder dysfunction. Leg is not weak. She does have underlying MS which is stable. She states she cannot get comfortable, cannot sleep, is having extreme pain in the leg, nothing is helping. She is wondering if she actually has a torn muscle in her gluteus instead. I have reviewed with them that a torn muscle is not going to give numbness and tingling. She does have degenerative changes on her MRI but there is most definitely more significant left-sided symptoms at L5-S1: Impression: 1. At L2-3, small right foraminal disc protrusion with mild neural foraminal narrowing. 2. At L3-4, right foraminal disc protrusion resulting in mild to moderate neural foraminal narrowing. 3. At L4-5, mild spinal canal and neural foraminal narrowing. 4. At L5-S1, moderate to severe left and mild to moderate right neural foraminal narrowing. Related Data Home Medications Medication Instructions Recorded Confirmed estradiol 0.1 mg/24 hr semiweekly 1 patch transdermal 07/02/22 06/15/23 transdermal patch nortriptyline 25 mg capsule 25 mg PO QDAY 07/02/22 06/15/23 tamsulosin 0.4 mg capsule ea PO 07/02/22 06/15/23 teriflunomide 14 mg tablet 14 mg PO 07/02/22 06/15/23 (Aubagio) aspirin 81 mg chewable tablet 1 tab PO DAILY 07/15/22 06/15/23 Previous Rx's Medication Instructions Recorded estradiol 0.1 mg/24 hr semiweekly 1 patch transdermal 2XW #24 ea 09/29/22 transdermal patch fluconazole 200 mg tablet 200 mg PO QDAY #2 tabs 09/29/22 metronidazole 0.75 % (37.5 mg/5 1 appful vaginal QDAY 5 days #70 09/29/22 gram) vaginal gel grams prednisone 20 mg tablet 20 mg PO BID #10 tabs 06/09/23 nifedipine 10 mg capsule 10 mg PO BID #60 caps 06/15/23 tramadol 50 mg tablet 50 mg PO Q8H PRN pain #30 tabs 06/15/23 oxycodone 5 mg tablet 5 mg PO Q4H PRN pain #30 tabs 06/24/23 Allergies Allergy/AdvReac Type Severity Reaction Status Date / Time glatiramer (copolymer 1) Allergy Verified 06/15/23 16:48 mannitol Allergy fever, Verified 06/15/23 16:48 myalgia, malaise, local rash PFSH PFSH Medical History Chilblains ?T69.1XXA - Chilblains, initial encounter (ICD-10) Sciatica ?M54.30 - Sciatica, unspecified side (ICD-10) Foot pain ?M79.673 - Pain in unspecified foot (ICD-10) Yeast infection of the vagina ?B37.31 - Acute candidiasis of vulva and vagina (ICD-10) Subungual hematoma of digit of hand ?S60.10XA - Contusion of unspecified finger with damage to nail, initial encounter (ICD-10) Sepsis ?A41.9 - Sepsis, unspecified organism (ICD-10) Recurrent urinary tract infection ?N39.0 - Urinary tract infection, site not specified (ICD-10) Recurrent candidiasis of vagina ?B37.31 - Acute candidiasis of vulva and vagina (ICD-10) Postcoital urinary tract infection ?N39.0 - Urinary tract infection, site not specified (ICD-10) On hormone replacement therapy ?Z79.890 - Hormone replacement therapy (ICD-10) Leukopenia ?D72.819 - Decreased white blood cell count, unspecified (ICD-10) History of herpes zoster ?Z86.19 - Personal history of other infectious and parasitic diseases (ICD- 10) Hematochezia (04/03/09) ?K92.1 - Melena (ICD-10) Endometriosis (04/03/09) ?N80.9 - Endometriosis, unspecified (ICD-10) Eczema ?L30.9 - Dermatitis, unspecified (ICD-10) Bacterial vaginosis ?N76.0 - Acute vaginitis (ICD-10) ?B96.89 - Other specified bacterial agents as the cause of diseases classified elsewhere (ICD-10) Cerebral aneurysm (2020) ?I67.1 - Cerebral aneurysm, nonruptured (ICD-10) Multiple sclerosis ?G35 - Multiple sclerosis (ICD-10) Surgical History Status post hysterectomy with oophorectomy ?Z90.710 - Acquired absence of both cervix and uterus (ICD-10) ?Z90.721 - Acquired absence of ovaries, unilateral (ICD-10) History of exploratory laparotomy ?Z98.890 - Other specified postprocedural states (ICD-10) Status post right rotator cuff repair (10/10/16) ?Z98.890 - Other specified postprocedural states (ICD-10) Family History (Updated 07/11/22 @ 10:34 by Joie Rivas ~ [facility], [facility]) Sister Multiple sclerosis Breast cancer Maternal Grandmother Stroke Maternal Grandfather Stroke Paternal Grandfather Stroke Paternal Grandmother Breast cancer Mother Heart disease Pancreatic cancer Father Lung cancer Stomach cancer Social History Smoking Status: Never smoker Do you use any of these nicotine containing products: None Second hand tobacco smoke exposure: No Little interest or pleasure in doing things: not at all Feeling down, depressed, or hopeless: not at all Exam Const: Vital Signs, click to edit/add: Vital Signs - 24 hr 06/27/23 21:36 Temperature 96.3 F L Pulse Rate [Left P ulse Oximeter] 86 Respiratory Rate 16 Blood Pressure [Ri ght Upper Arm] 121/83 Pulse Oximetry 98 Oxygen Delivery Me thod Room Air Patient is alert, interactive, no apparent distress. She is ambulatory into the ED of her own accord. She has 5/5 strength throughout both lower extremities. She has normal light touch sensation, no edema. Her gait is normal. She can heel and toe walk without difficulty. There is no midline tenderness over spine. Both gluteus have no visible deformity on appearance. She has no palpable tenderness over the superior aspect of the gluteus. Did review MRI findings on the left side in explained the nerve impingement with a foraminal narrowing that is moderate to severe on that side. Discussed how inflammation around the nerve that supplies the sensation to the lower extremity gives the actual pain symptoms within the leg. She does not have to have back pain for her symptoms to be present. Documenting provider has reviewed patient's vital signs: yes Course Vital Signs Vital signs: Initial Vital Signs Temperature 96.3 F L 06/27/23 21:36 Temperature Source Temporal Artery Scan 06/27/23 21:36 Pulse Rate 86 06/27/23 21:36 Pulse Rhythm Regular 06/27/23 21:36 Respiratory Rate 16 06/27/23 21:36 Blood Pressure 121/83 06/27/23 21:36 Blood Pressure Mean 95 06/27/23 21:36 Blood Pressure Position Sitting 06/27/23 21:36 Pulse Oximetry 98 06/27/23 21:36 Oxygen Delivery Method Room Air 06/27/23 21:36 Vital Signs Temperature 96.3 F L 06/27/23 21:36 Pulse Rate 86 06/27/23 21:36 Respiratory Rate 16 06/27/23 21:36 Blood Pressure 121/83 06/27/23 21:36 Pulse Oximetry 98 06/27/23 21:36 Oxygen Delivery Method Room Air 06/27/23 21:36 Temperature 96.3 F L 06/27/23 21:36 Pulse Rate 86 06/27/23 21:36 Respiratory Rate 16 06/27/23 21:36 Blood Pressure 121/83 06/27/23 21:36 Pulse Oximetry 98 06/27/23 21:36 Oxygen Delivery Method Room Air 06/27/23 21:36 Discharge Plan Discharge Clinical Impression: Acute lumbar radiculopathy Patient Disposition: Home, Self-Care Condition: Stable Instructions: Lumbar Radiculopathy (ED) Additional Instructions: Start prednisone, take with food. Can use Tylenol 1000 mg baseline for pain management, supplement with the oxycodone as needed per bottle directions. Have also written for Flexeril 10 mg up to 3 times a day, this is more of a muscle relaxant. This can be sedating, may have to see if it does cause you drowsiness and avoid operation of vehicles or machinery if this is the case. Can continue with physical therapy, await phone call by Dr. Gamez. If you develop bowel or bladder dysfunction, are having muscular/motor weakness, need to be re-evaluated emergently. Activity Level: Activity as Tolerated Prescriptions: No Action fluconazole 200 mg tablet 200 mg PO QDAY Qty: 2 12RF metronidazole 0.75 % (37.5mg/5 gram) gel 1 appful vaginal QDAY 5 Days Qty: 70 12RF estradiol 0.1 mg/24 hr patch semiweekly 1 patch transdermal 2XW Qty: 24 4RF Rx Instructions: apply 1 patch for 3 days alternating with 1 patch for 4 days each week for 3 wks per 4-wk cycle prednisone 20 mg tablet 20 mg PO BID Qty: 10 0RF tamsulosin 0.4 mg capsule PO estradiol 0.1 mg/24 hr patch semiweekly 1 patch transdermal nortriptyline 25 mg capsule 25 mg PO QDAY Aubagio 14 mg tablet 14 mg PO aspirin 81 mg tablet,chewable 1 tab PO DAILY nifedipine 10 mg capsule 10 mg PO BID Qty: 60 2RF tramadol 50 mg tablet 50 mg PO Q8H PRN (Reason: pain) Qty: 30 0RF oxycodone 5 mg tablet 5 mg PO Q4H PRN (Reason: pain) Qty: 30 0RF Follow Up/Referrals: Jacobo Campos MD [Primary Care Provider] - Stand Alone Forms: [employer] Info Instructions
== END 2023-06-28 00:04 | disposition home or self-care (01) ==
PROVIDERS: Emergency Provider Family Medicine; PCP Internal Medicine
DX: M54.16 Radiculopathy, lumbar region (principal)
CPT/HCPCS: 99283

== ENCOUNTER 2023-07-22 09:15 | Outpatient (RCR) | payer OTHER, BC, SELFPAY ==
--- NOTE | 2023-06-17 18:24 | PT.OPEX ---
Please review and sign the attached physical therapy evaluation completed on 06/17/23. Thank you. PT [facility] Outpatient Eval PT [facility] Outpatient Eval Start: 06/17/23 07:59 Freq: Status: Active Protocol: Document 06/17/23 10:14 TLQ (Rec: 06/17/23 18:18 TLQ [id number]) E-signed By Marie Coates DPT Physical Therapy Outpatient Evaluation Insurance Information Insurance Name Blue Cross/Blue Shield,Workman 's Comp Medical Diagnosis Sciatica, unspecified side M54 .30 Treating Diagnosis Pain in left leg M79.605 Lumbar radiculopathy M54.16 Muscle weakness M62.81 Referring MD Jacobo Campos MD Subjective Subjective Patient states last Thursday she was knocked over by a 70# dog , the next days she had pain in her left leg that goes all the way down to her toes. Describes pain as a throbbing down the back and into the front of her leg, even has pain in her groin. Gets numbness and tingling in her toes. Patient is currently on light duty, 90% of her job is walking. Walking is her most painful and limited activity at this time. Patient isn't able to sleep because of the pain, pain will radiate into her leg if she sleeps on her back. Symptoms are most painful around 3-4 in the afternoon, makes it painful to walk on. Pain improves with application of heat. Denies changes in bowel/bladder. States she has a clicking in her hip, feels like something is out of place. Taking Tramadol, not sure if its making a difference. X-ray of L hip performed on at [facility] with the following impression: Mild degenerative joint disease left hip. No acute fracture. 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 Occupation [place] [employer] Preferred Name Eliz or Delores Precautions Therapy Limitations/Systems Review Not Limited Objective Other/Pertinent Objective TRUNK AROM flexion: fingertips to floor extension: 100% rotation: L 50%, R 75% lateral flexion: fingertips to joint line HIP AROM WFL HIP STRENGTH flexion: L 4-, R 5 extension: L 3+, R 4+ abduction: L 4+, R 5 adduction: 5 B external rotation: L 3+, R 4- internal rotation: L 4-, R 4+ SPECIAL TESTS LACY (+) FADIR (-) Slump test (+) SLR: NT due to time Manual traction (+) improves symptoms Active SLR: NT due to time Symptom relief with PA at R PSIS TTP: glute med/min, piriformis , quadratus femoris, L PSIS, lumbar parapsinals JOINT MOBILITY: normal lumbar spine mobility, tender with PAs at L3-5 Functional Test Performed & Score LEFS: score 8/80 Assessment Assessment/Impression Patient is a 52 year old female who presents to outpatient physical therapy to address left lower extremity radicular symptoms of one week duration. Patient states she was stepping out of her trunk last Thursday when her dog pulled on its leash causing her to be knocked over onto her hands and knees with a twisting motion. Since then she has had throbbing pain that extends down the back of her left leg, into her left groin and down her left fierro. She also gets numbness and tingling that extends down into her left foot/toes. Symptoms currently limit the majority of the patient's daily activities, including: walking, sitting, standing, and sleeping. She has been placed on light duty at work as she is on her feet for 90% of the work day but is unable to tolerate this amount of activity at this time. Patient 's symptoms appear to be lumbar and sacral radicular in nature. Patient had positive slump test on the L, symptoms improved with manual distraction of the left lower extremity. Patient had tenderness in the L glutes/ piriformis/quadratus femoris that improved with skilled STM /TPR. She was instructed how to perform this intervention at home with use of a tennis ball. Patient also had tenderness in her lower lumbar paraspinals, L PSIS, and with gentle PA mobilizations at L3 -5. I spent time educating the patient on today's examination findings, she verbally agreed to the POC. She was provided with an initial HEP to reduce symptom severity. Based on examination findings the patient is appropriate for skilled physical therapy interventions to return patient to unrestricted work duty and meet the goals as outlined below. Primary Functional Limitations walking, sleeping, sitting, daily activities, muscle weakness Plan of Care Rehabilitation Potential Good Physical Therapy Goals In 4 visits: - Patient will report 50% improvement in radicular symptoms for improved quality of sleep. - Patient will tolerate walking 5 minutes prior to symptom onset. In 8-10 visits: - Patient will report >75% improvement in radicular symptoms in order to return to regular duty at work. - Score on LEFS will improve to >17/80 (MCID 9 points) to indicate functional improvements. - Patient will tolerated walking up to 30 minutes prior to symptom onset. - Patient will adhere to HEP to manage symptoms IND. Treatment Plan/Direct Interventions Manual Therapy,Neuromuscular Re-ed,Self-Care/Home Management,Therapeutic Activities,Therapeutic Exercises,Traction (Mechanical ) Frequency/Duration 1x/week for 8-10 weeks/visits Patient Will Be Discharged From Therapy Completion of LTG(s),Skills Plateau,Independent w/HEP, Independently Progressing Evaluation Billing Untimed Code Treatment Minutes 30 Complexity Low Certification Information Initial Certification Date 06/17/23 Provider Signature Shows Agreement With POC & Medical Necessity Physician Signature & Date Requested Please Sign/Date Here Physician Comment/Change : Physician NPI Number #
== END 2023-09-25 10:42 | disposition home or self-care (01) ==
PROVIDERS: PCP Internal Medicine; Visit Provider Internal Medicine
DX: M54.30 Sciatica, unspecified side (principal); M79.605 Pain in left leg; M54.16 Radiculopathy, lumbar region; M62.81 Muscle weakness (generalized); Z51.89 Encounter for other specified aftercare
CPT/HCPCS: 97012; 97110; 97140; 97161

== ENCOUNTER 2023-07-24 12:18 | Outpatient (CLI) | payer OTHER, BC, SELFPAY ==
--- OUTSIDE RECORDS SUMMARY | 2023-07-24 12:21 | XMS_ITS | Clinical Summary ---
Author Name Unknown Organization [facility] Address [address] [place] [id number] Care Team Providers Care Photolith Operator Name Role Phone Jacobo Campos MD Primary Care Provider Erick Hickman MD Unavailable [phone] Boy Rousseau MD Unavailable [phone] Allergies Active Allergy Reactions Criticality Noted Date Comments Glatiramer Other (See Comments) High 03/26/2015 Skin and fever Medications Medication Sig Dispensed Refills Start Date End Date Status Multiple Vitamins-Calcium (ONE-A-DAY WOMENS FORMULA PO) Take by mouth daily 0 Active Cholecalciferol (VITAMIN D) 2000 UNITS CAPS Take 2,000 Units by mouth 0 Active Calcium Carbonate-Vitamin D (CALCIUM + D PO) Take by mouth daily 0 Active Cyanocobalamin (VITAMIN B-12 PO) Take 1 tablet by mouth daily 0 Active estradiol (VIVELLE-DOT) 0.1 MG/24HR BIW patch 0 08/11/2016 Active fluconazole (DIFLUCAN) 150 MG tablet Take 150 mg by mouth 0 02/18/2016 Active metroNIDAZOLE (METROGEL) 0.75 % vaginal gel 0 08/11/2016 Active CRANBERRY PO Take 1 tablet by mouth daily 0 Active BIOTIN PO Take 1 tablet by mouth daily 0 Active triamcinolone (ARISTOCORT HP) 0.5 % external cream 0 10/31/2019 Active ibuprofen (ADVIL/MOTRIN) 800 MG tablet 0 10/31/2019 Active HYDROcodone-acetami nophen (NORCO) 5-325 MG tablet 0 01/27/2020 Active Ascorbic Acid (VITAMIN C) 500 MG CAPS 0 Active vitamin E 400 units TABS Take 400 Units by mouth daily 0 Active acetaminophen (TYLENOL) 500 MG tablet Take 500-1,000 mg by mouth every 6 hours as needed for mild pain 0 Active tamsulosin (FLOMAX) 0.4 MG capsuleIndications: Neurogenic bladder Take 1 capsule (0.4 mg) by mouth daily 90 capsule 3 09/25/2022 Active nortriptyline (PAMELOR) 25 MG capsuleIndications: Nonintractable headache, unspecified chronicity pattern, unspecified headache type Take two capsules at bedtime 180 capsule 3 09/25/2022 Active teriflunomide (AUBAGIO) 14 MG tabletIndications:M ultiple sclerosis (H) Take 1 tablet (14 mg) by mouth daily Only available through select specialty pharmacies 90 tablet 3 05/01/2023 Active Active Problems Problem Noted Date Diagnosed Date Intracranial aneurysm 11/23/2019 Leukopenia 01/25/2015 Multiple sclerosis 09/15/2013 Encounters Date Type Department Care Team Description 04/30/2023 Telephone [facility] [address] [address] Erick Hickman MD Medication Request (teriflunomide (AUBAGIO) 14 MG tablet ) 04/30/2023 MyC Medical Advice [facility] [address] [place] [phone] Tamara Mccullough from Last 3 Months Family History Medical History Relation Comments Multiple Sclerosis Sister Relation Status Comments Sister Social History Tobacco Use Types Packs/Day Years Used Date Smoking Tobacco: Former Smokeless Tobacco: Never Tobacco Cessation:Counseling Given: Not Answered Alcohol Use Standard Drinks/Week Comments Yes 0 (1 standard drink = 0.6 oz pur e alcohol) occasional PHQ-2 Answer Date Recorded PHQ-2 Score 0 09/25/2022 Adolescent Education Answer Date Record ed Getting School Help Needed Not on file 03/27 Sex and Gender Information Value Date Recorded Sex Assigned at Not on file Gender Identity Not on file Sexual Orientation Not on file Last Filed Vital Signs Vital Sign Reading Time Taken Comments Blood Pressure 124/77 09/25/2022 9:00 AM CDT Pulse 69 09/25/2022 9:00 AM CDT Temperature 36.6 ??C (97.8 ??F) 05/25/2020 8 :33 AM FINANCE ANALYST Respiratory Rate 16 05/25/2020 12:3 2 PM FINANCE ANALYST Oxygen Saturation 98% 09/25/2022 9:0 0 AM CDT Inhaled Oxygen Concentration - - Weight 85.2 kg (187 lb 12.8 oz) 09/25/2022 9:00 AM CDT with shoes on Height 170.2 cm (5' 7) 08/16/2020 10:5 6 AM FINANCE ANALYST Body Mass Index 29.41 08/16/2020 10:56 AM FINANCE ANALYST Plan of Treatment Upcoming Encounters Date Type Department Care Team (Late st Contact Info) Description 09/24/2023 9:00 AM CDT Office Visit [facility] Multiple Sclerosis [address] [address] Erick Hickman MD [address] [place] [address] - [id number] [place] [address] Health Maintenance Due Date Last Done Comments ANNUAL REVIEW OF HM ORDERS 1972 CT COLONOGRAPHY 1972 FIT 1972 FLEX SIG 1972 HEPATITIS B IMMUNIZATION (1 of 3 - 3-dose series) 1972 MAMMO SCREENING 1972 URINE DRUG SCREEN 1972 YEARLY PREVENTIVE VISIT 1972 sDNA (Cologuard) 1972 COVID-19 Vaccine (#1) 1977 Pneumococcal Vaccine: Pediatrics (0 to 5 Years) and At-Risk Patients (6 to 64 Years) (1 of 2 - PCV) 1978 IPV IMMUNIZATION (4 of 4 - 5-dose series) 07/14/1980 01/12/1980, 01/12/1980, 1972 COLONOSCOPY 1982 COLORECTAL CANCER SCREENING 1982 HIV SCREENING 09/21/1987 HEPATITIS C SCREENING 1990 ZOSTER IMMUNIZATION (1 of 2) 09/21/1991 PAP 1993 LIPID 2017 DTAP/TDAP/TD IMMUNIZATION (5 - Td or Tdap) 04/15/2021 04/15/2011, 01/15/1983, 01/12/1980, Additional history exists INFLUENZA VACCINE (#1) 2023 05/04/2015, 2009 PHQ-2 (once per calendar year) 2023 09/25/2022, 06/03/2022, 09/26/2021, Additional history exists ADVANCE CARE PLANNING 11/23/2024 11/24/2019 HPV IMMUNIZATION Aged Out No longer e ligible based on patient's age to complete this topic MENINGITIS IMMUNIZATION Aged Out No l onger eligible based on patient's age to complete this topic RSV MONOCLONAL ANTIBODY Aged Out No l onger eligible based on patient's age to complete this topic Medical Devices Implanted Type Area Director Sales And Marketing Device Identifier Shelf Expiration Date Model / Serial / Lot Embolic Substance/Dev ice Web Sl 4x3-11/23/2019 Implanted:Qty : 1 on 11/23/2019 by Boy Rousseau MD Embolic Substance/D evice Right: Carotid MICROVENTION 02/18/2020 [id number] / / [id number] Stent Neuroform [place] 3x21- 0 Implanted:Qty : 1 on 11/23/2019 by Boy Rousseau MD Stent Right: Carotid CHAYITO 11/17/2023 [id number] / / [id number] Care Teams Photolith Operator Relationship Specialty Start Date End Date Jacobo Campos MD [facility] [address] [place] [address] PCP - General Internal Medicine 09/08/13 Erick Hickman MD [address] [place] [address] - [id number] [address] Assigned Neuroscience Provider 04/27/20 Boy Rousseau MD [address] [place] [address] [id number] [place], [place] [id number] Assigned Surgical Provider 04/27/20
--- OUTSIDE RECORDS SUMMARY | 2023-07-24 12:21 | XMS_ITS | Clinical Summary ---
Author Name Unknown Organization [facility] Address [place], [place] [address] Care Team Providers Care Spinning Frame Cleaner Name Role Phone Jacobo Campos MD Primary Care Provider [phone] Allergies Active Allergy Reactions Criticality Noted Date Comments Glatiramer Acetate Other - Describe In Comment Field High 03/26/2015 Skin and fever Medications Medication Sig Dispensed Refills Start Date End Date Status multivitamin (MVI) tablet Take 1 tablet by mouth once daily. 0 02/25/2010 Active fluconazole (DIFLUCAN) 150 mg tablet Take 1 tablet by mouth one time. 1 tablet 0 02/18/2016 Active tamsulosin (FLOMAX) 0.4 mg capsuleIndications: Neurogenic bladder Take 1 capsule by mouth once daily after a meal. 90 capsule 3 02/18/2016 Active cholecalciferol (VITAMIN D-3) 2,000 unit capsule Take 1 capsule by mouth once daily. 0 07/24/2016 Active cyanocobalamin (VITAMIN B-12) 1,000 mcg tablet Take 1 tablet by mouth once daily. 0 07/24/2016 Active estradiol 0.1 mg/24 hr (ESTRADERM; VIVELLE-DOT) patch 0 08/11/2016 Active metroNIDAZOLE 0.75% vaginal (METROGEL) 0.75 % vaginal gel 0 08/11/2016 Active biotin 100 mg/gram powd Mix 1 Tablet in liquid then take by mouth. 0 Active calcium carbonate-vitamin D3 500 mg(1,250mg) -200 unit pwpk Mix in liquid then take by mouth. 0 Active cranberry fruit extract (CRANBERRY POWDER ORAL) Take 1 Tablet by mouth. 0 Active ascorbic acid, vitamin C, 500 mg cap Take 1 Capsule by mouth once daily. 0 Active vitamin E acid succinate (vitamin E succinate) 400 unit tab Take 400 units by mouth. 0 Active durable medical equipment (DME)Indications:Ce rvical disc herniation,Cervical radiculopathy,Neck pain, chronic Cervical Traction Unit for home use. Length of Use: 99 months 1 Each 0 12/21/2020 Active teriflunomide 14 mg tab Take 1 tablet (14 mg) by mouth daily 90 Tablet 3 05/01/2023 Active tiZANidine (ZANAFLEX) 4 mg tabletIndications:L umbar radiculopathy Take 1 Tablet (4 mg) by mouth every 6 hours if needed for Muscle Spasm. 24 Tablet 1 07/13/2023 Active methylPREDNISolone (Medrol, Yovany,) 4 mg tabletIndications:N lexi pain, chronic Take by mouth as instructed per packaging. 1 Package 0 10/17/2020 Discontinue d(*Med complete/Re gimen complete/Le jimmy of care change) Active Problems Problem Noted Date Diagnosed Date Neurogenic bladder 02/18/2016 Recurrent UTI 02/18/2016 Multiple sclerosis 10/12/2010 COUGH 02/25/2000 Encounters Date Type Department Care Team Description 07/21/[address] [address] Oneal Gamez MD Question for 07/24 injection 07/21/[address] [address] Oneal Gamez MD [facility] 07/15/[address] [address] Oneal Gamez MD Questions 07/14/[address] [address] Oneal Gamez MD Questions (call back ) 07/14/[address] [address] Oneal Gamez MD [facility]ointment [facility]20[facility] [address] Oneal Gamez MD Questions 07/13/2023 9:20 AM SAP ABAP PROGRAMMER [facility] [address] [facility] [address] Oneal Gamez MD [facility] (Consult work comp back, left hip/groin and leg date of injury:06/08/23) 07/13/2023 Telephone [facility] [address] [facility] [address] Oneal Gamez MD Questions (Work Report abiltiy emailed over and orders for Muscle Relaxer) 07/13/2023 Travel 06/30/2023 Telephone [facility] [address] [facility] [address] Oneal Gamez MD Questions (MRI) 06/25/2023 Orders Only [facility] Scanner 1 scan: (1-Ord) [facility], LUMBAR SPINE W/O CONTRAST, 06/25/2023 06/25/2023 Orders Only [facility] Scanner 1 scan: (1-Ord) [facility], LUMBAR SPINE WO CON, 06/25/2023 from Last 3 Months Immunizations Name Administration Dates Next Due DTP 1972 MMR 02/20/1978 Oral Polio Vaccine 01/12/1980,1972 Family History Medical History Relation Name Comments Cancer-prostate Brother Stroke Mother Stroke Sister raven Relation Name Status Comments Brother Mother Sister raven Alive Social History Tobacco Use Types Packs/Day Years Used Date Smoking Tobacco: Former Smokeless Tobacco: Never Tobacco Cessation:Counseling Given: Yes Comments:Smoking History Packs/day: <1 Alcohol Use Standard Drinks/Week Comments Yes 7 (1 standard drink = 0.6 oz pur e alcohol) Alcoholic Drinks/day: <1 Social Connections Answer Date Recorded Frequency of Communication with Friends and Fami ly Not on file 07/13/2023 Financial Resource Strain Answer Date R ecorded Difficulty of Paying Living Expenses Not on file 07/06/2021 Difficulty of Paying Living Expenses Not on file 07/06/2021 Sex and Gender Information Value Date Recorded Sex Assigned at Not on file Gender Identity Not on file Sexual Orientation Not on file Obstetrics History Last Filed Vital Signs Vital Sign Reading Time Taken Comments Blood Pressure 126/80 07/13/2023 9:25 AM SAP ABAP PROGRAMMER Pulse 83 07/13/2023 9:25 AM SAP ABAP PROGRAMMER Temperature 36.7 ??C (98.1 ??F) 07/13/2023 9:25 AM CS T Respiratory Rate 16 09/02/2016 9:30 AM SAP ABAP PROGRAMMER Oxygen Saturation 99% 07/13/2023 9:25 AM SAP ABAP PROGRAMMER Inhaled Oxygen Concentration - - Weight 80 kg (176 lb 5.9 oz) 01/27/2017 5:46 PM CDT Height 170 cm (5' 6.93) 08/04/2016 9:28 AM SAP ABAP PROGRAMMER Body Mass Index 27.68 08/04/2016 9:28 AM SAP ABAP PROGRAMMER Plan of Treatment Upcoming Encounters Date Type Department Care Team (Late st Contact Info) Description 07/24/2023 1:00 PM SAP ABAP PROGRAMMER Office Visit [facility] [address] [place] [address] Oneal Gamez MD [address] [place] [address] Arrived 08/06/2023 1:40 PM SAP ABAP PROGRAMMER Office Visit [facility] [address] [place] [address] Oneal Gamez MD [address] [place] [address] Health Maintenance Due Date Last Done Comments COVID-19 vaccine series (#1) 03/23/1973 Tdap 09/21/1983 HIV for age 15-65 09/21/1987 Hepatitis C screening for ag e 18-79 1990 Tetanus booster 1992 Pap test for age 21-65 05/21/2010 7, 09/04/2004 Depression screening for age 12+ 07/24/2017 07/24/2016 BMI (ht and wt on same day) for age 18+ 08/04/2017 08/04/2016, 07/24/2016, 02/18/2016 Colonoscopy through age 75 2017 Lipids for age 45-75 2017 Mammogram for age 45-75 2017 Zoster (shingles) series for age 50+ (1 of 2) 2022 Influenza for age 50-64 03/06/2023 Pneumococcal series for age 6-64 Aged Out No longer eligible b ased on patient's age to complete this topic Procedures Procedure Name Priority Date/Time Associated Diagnosis Comments AMB EPIDURAL STEROID INJECTION BRANDI 07/24/2023 8:26 AM SAP ABAP PROGRAMMER Encounter related to worker's compensation claim Lumbar radiculopathy Lumbar disc herniation Hip strain, left, initial encounter Hip pain, left SCAN-MRI INTERPRETATION 06/25/20 12:00 AM SAP ABAP PROGRAMMER SCAN-MRI INTERPRETATION 06/25/20 12:00 AM SAP ABAP PROGRAMMER from Last 3 Months Results * SCAN-MRI INTERPRETATION (06/25/2023 12:00 AM SAP ABAP PROGRAMMER) Only the most recent of2 resultswithin the time period is included. Anatomical Region Laterality Modality Other Scanner OTHER from Last 3 Months Care Teams Spinning Frame Cleaner Relationship Specialty Start Date End Date Jacobo Campos MD [address] [place] [id number] PCP - General Internal Medicine 10/25/21
--- OUTSIDE RECORDS SUMMARY | 2023-07-24 12:22 | XMS_ITS | Encounter Summary ---
Author Name Unknown Organization [place] Address [address] [place] [address] Care Team Providers Care Condenser Operator Name Role Phone Jacobo Campos MD Primary Care Provider Erick Hickman MD Unavailable [phone] Boy Rousseau MD Unavailable Reason for Visit * Reason Onset Date Comments Refill Request 03/18/2023 Encounter Details Date Type Department Care Team (Late Contact Info) Description 03/18/2023 Refill [facility] Multiple Sclerosis [address] [address] Erick Hickman MD [address] [place] [address] - [id number] [address] Refill Request Social History Tobacco Use Types Packs/Day Years Used Date Smoking Tobacco: Former Smokeless Tobacco: Never Alcohol Use Standard Drinks/Week Comments Yes 0 (1 standard drink = 0.6 oz pur e alcohol) occasional PHQ-2 Answer Date Recorded PHQ-2 Score 0 09/25/2022 Sex and Gender Information Value Date Recorded Sex Assigned at Not on file Gender Identity Not on file Sexual Orientation Not on file documented as of this encounter Plan of Treatment Upcoming Encounters Date Type Department Care Team (Late Contact Info) Description 09/24/2023 9:00 AM CDT Office Visit [facility] Multiple Sclerosis [address] [address] Erick Hickman MD [address] [place], [place] [address], [place] [address] documented as of this encounter Visit Diagnoses Diagnosis Multiple sclerosis (H) Multiple sclerosis documented in this encounter Care Teams Condenser Operator Relationship Specialty Start Date End Date Jacobo Campos MD [facility] [address] [place] [address] PCP - General Internal Medicine 09/08/13 Erick Hickman MD [address] [place] [address] Assigned Neuroscience Provider 04/27/20 Boy Rousseau MD [address] [place], [place] [address], [place] [address] Assigned Surgical Provider 04/27/20 documented as of this encounter
--- OUTSIDE RECORDS SUMMARY | 2023-07-24 12:22 | XMS_ITS | Referral Summary ---
Author Name Unknown Organization [place] Address [address] [place] [address] Care Team Providers Care Personal Development Educator Name Role Phone Jacobo Campos MD Primary Care Provider Erick Hickman MD Unavailable [phone] Boy Rousseau MD Unavailable Encounters Date Type Department Care Team Description 04/30/2023 Telephone [facility] [address] [address] Erick Hickman MD Medication Request (teriflunomide (AUBAGIO) 14 MG tablet ) 04/30/2023 MyC Medical Advice [facility] [address] [facility] 1st [place] [address] Tamara Mccullough from Last 3 Months Allergies Active Allergy Reactions Criticality Noted Date [...] aneurysm 11/23/2019 Leukopenia 01/25/2015 Multiple sclerosis 09/15/2013 Social History Tobacco Use Types Packs/Day Years [...] ??C (97.8 ??F) 05/25/2020 8 :33 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 Respiratory Rate 16 05/25/2020 12:3 2 PM WELDING MACHINE TENDER Oxygen Saturation 98% 09/25/2022 9:0 0 AM CDT Inhaled Oxygen Concentration - - Weight 85.2 kg (187 lb 12.8 oz) 09/25/2022 9:00 AM CDT with shoes on Height 170.2 cm (5' 7) 08/16/2020 10:5 6 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 Body Mass Index 29.41 08/16/2020 10:56 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 Plan of Treatment Upcoming Encounters Date Type Department Care Team (Late st Contact Info) Description 09/24/2023 9:00 AM CDT Office Visit [facility] Multiple Sclerosis [address] [address] Erick Hickman MD [address] [place] [address] - [id number] [address] Medical Devices Implanted Type Area Licensing Registration Examiner Device Identifier Shelf Expiration Date Model / Serial / Lot Embolic Substance/Dev ice Web Sl 4x3-11/23/2019 Implanted:Qty : 1 on 11/23/2019 by Boy Rousseau MD Embolic Substance/D evice Right: Carotid MICROVENTION 02/18/2020 [id number] / / [id number] Stent Neuroform [place] 3x21- 0 Implanted:Qty : 1 on 11/23/2019 by Boy Rousseau MD Stent Right: Carotid CHAYITO 11/17/2023 [id number] / / [id number] Care Teams Personal Development Educator Relationship Specialty Start Date End Date Jacobo Campos MD [facility] [address] [place] [address] PCP - General Internal Medicine 09/08/13 Erick Hickman MD [address] [place] [address] [id number] [address] Assigned Neuroscience Provider 04/27/20 Boy Rousseau MD [address] [place], [place] [address], [place] [address] Assigned Surgical Provider 04/27/20
--- OUTSIDE RECORDS SUMMARY | 2023-07-24 12:22 | XMS_ITS | Encounter Summary ---
Author Name Unknown Organization [facility] Address [address] [place] [address] Care Team Providers Care Labor Arbitrator Name Role Phone Jacobo Campos MD Primary Care Provider Erick Hickman MD Unavailable [phone] Boy Rousseau MD Unavailable [phone] Reason for Visit * Reason Comments MS RECHECK Annual follow up Encounter Details Date Type Department Care Team (Late st Contact Info) Description 09/25/2022 9:00 AM CDT Office Visit [facility] [address] [address] Erick Hickman MD [address] [place] [address] - [id number] [place] [address] MS (multiple sclerosis) (H) (Primary Dx); Neurogenic bladder; Nonintractable headache, unspecified chronicity pattern, unspecified headache type; Cerebral aneurysm without rupture Social History Tobacco Use Types Packs/Day Years [...] on file Sexual Orientation Not on file COVID-19 Exposure Response Date Recorded In the last 10 days, have qian thornton been in contact with someone who was confirmed or suspected to have Coronavirus/COVID-19? 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 Continue tamsulosin and Aubagio 3. Blood tests today 4. 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 In 2010, she developed left optic neuritis and was diagnosed with multiple sclerosis based on MRI imaging. She was started on interferon beta for disease modifying therapy. She then switched to glatiramer acetate, but did not tolerate the injections. Since 2014, she has been on teriflunomide. Overall, she has felt stable since her last clinic appointment. Occasionally, she has left leg painprimarily at the hip. When she stretched or flexes the muscles, the symptoms resolve. She denies changes in gait, imbalance, or falls. She notes drinking a lot of water and uses the restroom frequently. She takes tamsulosin and this is beneficial. No incontinence or retention. She continues to have occipital headache that radiates to the temples (pounding quality). She has aheadache about every 2-3 days with 1 severe headache about once per week. She has been taking teroflunomide as prescribed and not missing doses. Allergies: Allergies Allergen Reactions ??? Copaxone [Glatiramer] Other (See Comments) Skin and fever PHYSICAL EXAM: BP 124/77 (BP Location: Left arm, Patient Position: Sitting, Cuff Size: Adult Regular) Pulse 69 Wt 85.2 kg (187 lb 12.8 oz) SpO2 98% BMI 29.41 kg/m?? General: No acute distress. HEENT: Normocephalic, atraumatic. Sclera anicteric. No nasal drainage or epistaxis. CV: Extremities appear to be appropriately perfused. Pulmonary: Breathing comfortably on room air. No accessory muscle use. GI/: Soft, non-distended. MSK: No LE edema. Integument: Warm, dry. No jaundice. MSE: Alert and conversant. Oriented to self, location, month/year. Follows simple commands. CN: EOMI, no nystagmus or double vision. Pupils are 2-3mm, round, reactive to light. Facial sensation intact to light touch and symmetric along V1-V3. Facial movements symmetric. Hearing is intact toconversation. Equal palate elevation. Tongue protrudes without deviation. Motor: Normal bulk and tone. No abnormal movements. 5/5 strength in the upper and lower extremities. Reflexes: 2+ biceps, brachioradialis, patellar reflexes. No clonus. Toes downgoing/equivocal. Sensory: Intact to light touch and vibration in the upper and lower extremities. Coordination: FNF and HS without ataxia or dysmetria. Rapid alternating movements intact. Gait: Ambulates with assistive device. Normal casual gait that is narrow-based. Tandem gait intact. LABS: CBC 09/26/2021: WBC 4.7, hemoglobin 13.7, platelets 245 Hepatic function 09/22/2021: AST 28, ALT 28, alk phos 58, total bili 0.3, direct bili 0.1 IMAGING: Brain MRI 05/16/2022: Personally reviewed the imaging and there does not appear to be new lesions concerning for demyelination on T2/FLAIR sequencing. ASSESSMENT & PLAN: This is a 52-year-old female who presents for follow-up of multiple sclerosis and is currently taking teriflunomide. Overall, symptoms are stable and neurologic examination today does not show abnormal findings. She is tolerating teriflunomide well and her most recent brain MRI on 05/16/2022 was stable and did not show new areas concerning for demyelination. Previous labs were over a year ago and so we will checkblood work today since she remains on disease modifying therapy. She continues to have headaches. We discussed that daily caffeine and analgesia (acetaminophen) mayresult in rebound headaches. We recommend that she limit use of analgesic medications as much as possible, ideally less than 14 days/month. She did find some relief with nortriptyline 25 mg, which can be increased further and she is agreeable to this. She does not have side effects on this medication. Multiple Sclerosis -Labs today: CBC and liver function -Continue teriflunomide Urinary hesitancy -Continue tamsulosin Headaches -Increase nortriptyline to 50mg daily -Limit analgesia as able since this can cause rebound headaches Follow-up in 1 year The patient was seen and discussed with the attending neurologist, Dr. Hickman, who agrees withthe assessment and plan. Ewelina Pearl MD Neurology PGY-4 Attending physician: I saw and evaluated the patient with Dr. Pearl and I agree with her findings and plan of care as documented above. The patient is clinically stable with no evidence of active inflammatory demyelination on current disease modifying therapy with teriflunomide. Blood tests to be performed today as above for routine monitoring of this medication. Regarding previously treated aneurysm, plan per Dr. Rousseau of neurointerventional radiology is to repeat MRA in about 2 years (i.e., 2023), which we will arrange at that time. I will increase her dose of nortriptyline to 50 mg at bedtime to try to improve headache control. She was cautioned on risk of rebound headache with frequent use of [id number] analgesics. Remainder as above. Erick Hickman MD Petroleum Engineer of Neurology [facility] documented in this encounter Nursing Notes * Reinaldo Pavon - 09/25/2022 9:00 AM CDT Chief Complaint Patient presents with ??? MS ??? RECHECK Annual follow up Vitals were taken and medications were reconciled. Reinaldo Pavon, EMT 9:03 AM documented in this encounter Plan of Treatment Upcoming Encounters Date Type Department Care Team (Late st Contact Info) Description 09/24/2023 9:00 AM CDT Office Visit [facility] [address] [address] Erick Hickman MD [address] [place] [address] - [id number] [place] [address] documented as of this encounter Results * Hepatic panel (09/25/2022 10:04 AM CDT) Pathologist [facility] Protein Total 6.8 6.4 - 8.3 g/dL 09/25/2022 10:31 AM CDT [facility] Albumin 4.6 3.5 - 5.2 g/dL 09/25/2022 10:31 AM CDT [facility] Bilirubin Total 0.4 <=1.2 mg/dL 09/25/2022 10:31 AM CDT [facility] Alkaline Phosphatase 59 35 - 104 U/L 09/25/2022 10:31 AM CDT [facility] AST 21 10 - 35 U/L 09/25/2022 10:31 AM CDT [facility] ALT 20 10 - 35 U/L 09/25/2022 10:31 AM CDT [facility] Bilirubin Direct <0.20 0.00 - 0.30 mg/dL 09/25/2022 10:31 AM CDT [facility] Blood STRUCTURE OF LEFT UPPER LIMB / Unknown Venipuncture / Unknown 09/25/2022 10:04 AM CDT 09/25/2022 10:04 AM CDT Erick Hickman MD LAB - BLOOD ORDER [facility] - [address] 1st Floor [place] [address] documented in this encounter Visit Diagnoses Diagnosis MS (multiple sclerosis) (H)- Primary Multiple sclerosis Neurogenic bladder Neurogenic bladder, NOS Nonintractable headache, unspecified chronicity pattern, unspecified headache type Cerebral aneurysm without rupture Cerebral aneurysm, nonruptured documented in this encounter Care Teams Labor Arbitrator Relationship Specialty Start Date End Date Jacobo Campos MD [facility] [address] [place] [address] PCP - General Internal Medicine 09/08/13 Erick Hickman MD [address] [facility] - [id number] [place] [address] Assigned Neuroscience Provider 04/27/20 Boy Rousseau MD 9 [facility] [id number] [place] [address] Assigned Surgical Provider 04/27/20 documented as of this encounter
--- OUTSIDE RECORDS SUMMARY | 2023-07-24 12:22 | XMS_ITS | Encounter Summary ---
Author Name Unknown Organization [place] Address [address] [place] [address] Care Team Providers Care Green Chain Offbearer Name Role Phone Jacobo Campos MD Primary Care Provider Guerita Holbrook RN Unavailable Erick Hickman MD Unavailable [phone] Boy Rousseau MD Unavailable [phone] Reason for Visit * Reason Onset Date Comments Call Back 11/28/2020 medical card for flight Encounter Details Date Type Department Care Team (Late st Contact Info) Description 11/28/2020 Telephone [facility] Neurology Clinic [address] [address] Boy Rousseau MD [address] [place] [address] [id number] [place] [address] Call Back (medical card for flight ) Social History Tobacco Use Types Packs/Day Years Used Date Smoking Tobacco: Former Smokeless Tobacco: Never Alcohol Use Standard Drinks/Week Comments Yes 0 (1 standard drink = 0.6 oz pur e alcohol) occasional PHQ-2 Answer Date Recorded PHQ-2 Score 0 08/16/2020 Sex and Gender Information Value Date Recorded Sex Assigned at Not on file Gender Identity Not on file Sexual Orientation Not on file documented as of this encounter Patient Instructions * Patient Instructions* Dian Gibbs RN - 11/28/2020 11:36 AM CDT Regarding: Eliz Roth : 1970 CEREBRAL DEVICES IMPLANTED 11/23/2019: EMBOLIC SUBSTANCE/DEVICE WEB SL 4X3 STENT NEUROFORM ATLAS [id number] 11/23/2019 documented in this encounter Miscellaneous Notes * Telephone Encounter - Alecia Magallon CMA - 11/30/2020 2:24 PM CDT Spoke to patient let her know it is ok to fly without medical card per DIVINE Bearden I did asked patient if she wanted me to send her the information that was sent to me by RN patient stated no she just wanted to know if it was ok for her to fly without medical card. Patient aware and has no other questions or concerns at this time. * Telephone Encounter - Joselyn Everett - 11/28/2020 11:36 AM CDT [facility] Call Center Phone Message May a detailed message be left on voicemail: yes Reason for Call: Other: Pt calling in she is needing a medical card as she is going on a plane and [employer] is requiring a medical card from her brain surgery, please call back to discuss further Action Taken: Message routed to: [facility] neuro Travel Screening: Not Applicable documented in this encounter Plan of Treatment Upcoming Encounters Date Type Department Care Team (Late st Contact Info) Description 09/24/2023 9:00 AM CDT Office Visit [facility] Multiple Sclerosis Clinic [address] [address] Erick Hickman MD [address] [place] [address] - [id number] [place], [place] [address] documented as of this encounter Visit Diagnoses Not on filedocumented in this encounter Care Teams Green Chain Offbearer Relationship Specialty Start Date End Date Jacobo Campos MD [facility] [address] [place] [address] PCP - General Internal Medicine 09/08/13 Guerita Holbrook, RN Specialty Large Sheetfed Press Operator Neurology 06/22/15 02/28/21 Erick Hickman MD 9 [facility] - [id number] [address] Assigned Neuroscience Provider 04/27/20 Boy Rousseau MD [id number], [place] [address] Assigned Surgical Provider 04/27/20 documented as of this encounter
--- OUTSIDE RECORDS SUMMARY | 2023-07-24 12:22 | XMS_ITS | Encounter Summary ---
Author Name Unknown Organization [place] Address [address] [place] [address] Care Team Providers Care Rehab Assistant Name Role Phone Jacobo Campos MD Primary Care Provider Erick Hickman MD Unavailable [phone] Boy Rousseau MD Unavailable [phone] Encounter Details Date Type Department Care Team (Latest Contact Info) Description 09/25/2022 Travel Social History Tobacco Use Types Packs/Day Years [...] Recorded In the last 10 days, have yo u been in contact with someone who was confirmed or suspected to have Coronavirus/COVID-19? No / Unsure 09/25/2022 9:54 AM CDT documented as of this encounter Plan of Treatment Upcoming Encounters Date Type Department Care Team (Late st Contact Info) Description 09/24/2023 9:00 AM CDT Office Visit [facility] Multiple Sclerosis [address] [phone] Erick Hickmna MD [address] [place] [address] - [id number] [place] [address] documented as of this encounter Visit Diagnoses Not on filedocumented in this encounter Care Teams Rehab Assistant Relationship Specialty Start Date End Date Jacobo Campos MD [facility] [address] [place] [address] PCP - General Internal Medicine 09/08/13 Erick Hickman MD [address] [place] [address] [address] Assigned Neuroscience Provider 04/27/20 Boy Rousseau MD [address] [place], [place] [id number], [place] [address] Assigned Surgical Provider 04/27/20 documented as of this encounter
--- OUTSIDE RECORDS SUMMARY | 2023-07-24 12:22 | XMS_ITS | Encounter Summary ---
Author Name Unknown Organization [facility] Address [address] [place] [address] Care Team Providers Care Donor Floor Technician Name Role Phone Jacobo Campos MD Primary Care Provider Erick Hickman MD Unavailable Boy Rousseau MD Unavailable Reason for Visit * Reason Onset Date Comments Medication Compliance Issues 03/31/2023 Cov erage exception form Encounter Details Date Type Department Care Team (Late st Contact Info) Description 03/31/2023 Telephone [facility] S[facility] [address] [address] Erick Hickman MD [address] [place] [address] - [id number] [place] [address] Medication Compliance Issues (Coverage exception form) Social History Tobacco Use Types Packs/Day Years [...] on file documented as of this encounter Miscellaneous Notes * Telephone Encounter - Myesha Goodman - 03/31/2023 10:02 AM CDT [facility] Call Center Phone Message May a detailed message be left on voicemail: yes Reason for Call: Medication Question or concern regarding medication Prescription Clarification Name of Medication: teriflunomide (AUBAGIO) 14 MG tablet [[id number]] (Order [id number]) Prescribing Provider: Erick Hickman MD Pharmacy: NA What on the order needs clarification? Caller Stated the Pt would need a Coverage Exception letter in order to continue the process for the medication under the plan, the form can be filled out on [employer], the pts coverage ends April 05. Action Taken: Message routed to: [facility] Neurology Travel Screening: Not Applicable documented in this encounter Plan of Treatment Upcoming Encounters Date Type Department Care Team (Late st Contact Info) Description 09/24/2023 9:00 AM CDT Office Visit [facility] Multiple Sclerosis [address] [phone] Erick Hickman MD [address] [place] [address] documented as of this encounter Visit Diagnoses Not on filedocumented in this encounter Care Teams Donor Floor Technician Relationship Specialty Start Date End Date Jacobo Campos MD [facility] [address] [place] [address] PCP - General Internal Medicine 09/08/13 Erick Hickman MD [address] [place] [address] Assigned Neuroscience Provider 04/27/20 Boy Rousseau MD [address] [place], [place] [address], [place] [address] Assigned Surgical Provider 04/27/20 documented as of this encounter
--- OUTSIDE RECORDS SUMMARY | 2023-07-24 12:22 | XMS_ITS | Encounter Summary ---
Author Name Unknown Organization [facility] Address [address] [place] [address] Care Team Providers Care Ward Aide Name Role Phone Jacobo Campos MD Primary Care Provider Erick Hickman MD Unavailable [phone] Boy Rousseau MD Unavailable [phone] Encounter Details Date Type Department Care Team (Late Contact Info) Description 09/25/2022 10:15 AM CDT Lab [facility] [address] [address] MS (multiple sclerosis) (H) Social History Tobacco Use Types Packs/Day Years [...] Description 09/24/2023 9:00 AM CDT Office Visit [facility] [address] [phone] Erick Hickman MD [address] [facility] - [id number] [place] [address] documented as of this encounter Procedures Procedure Name Priority Date/Time Associated Diagnosis Comments CBC WITH PLATELETS AND DIFFERENTIAL Routine 09/25/2022 10:04 AM CDT MS (multiple sclerosis) (H) CBC WITH PLATELETS & DIFFERENTIAL Routine 09/25/2022 10:04 AM CDT MS (multiple sclerosis) (H) HEPATIC FUNCTION PANEL Routine 09/25/2022 10:04 AM CDT MS (multiple sclerosis) (H) documented in this encounter Results * CBC with platelets and differential (09/25/2022 10:04 AM CDT) WBC Count 4.0 4.0 - 11.0 10e3/uL 09/25/2022 10:08 AM CDT [facility] RBC Count 4.78 3.80 - 5.20 10e6/uL 09/25/2022 10:08 AM CDT [facility] Hemoglobin 13.5 11.7 - 15.7 g/dL 09/25/2022 10:08 AM CDT [facility] Hematocrit 42.3 35.0 - 47.0 % 09/25/2022 10:08 AM CDT [facility] MCV 89 78 - 100 fL 09/25/2022 10:08 AM CDT [facility] MCH 28.2 26.5 - 33.0 pg 09/25/2022 10:08 AM CDT [facility] MCHC 31.9 31.5 - 36.5 g/dL 09/25/2022 10:08 AM CDT [facility] RDW 14.0 10.0 - 15.0 % 09/25/2022 10:08 AM CDT [facility] Platelet Count 247 150 - 450 10e3/uL 09/25/2022 10:08 AM CDT [facility] % Neutrophils 56 % 09/25/2022 10:08 AM CDT [facility] % Lymphocytes 28 % 09/25/2022 10:08 AM CDT [facility] % Monocytes 13 % 09/25/2022 10:08 AM CDT [facility] % Eosinophils 2 % 09/25/2022 10:08 AM CDT [facility] % Basophils 1 % 09/25/2022 10:08 AM CDT [facility] % Immature Granulocytes 0 % 09/25/2022 10:08 AM CDT [facility] NRBCs per 100 WBC 0 <1 /100 023 10:08 AM CDT [facility] Absolute Neutrophils 2.2 1.6 - 8.3 10e3/uL 09/25/2022 10:08 AM CDT [facility] Absolute Lymphocytes 1.1 0.8 - 5.3 10e3/uL 09/25/2022 10:08 AM CDT [facility] Absolute Monocytes 0.5 0.0 - 1.3 10e3/uL 09/25/2022 10:08 AM CDT [facility] Absolute Eosinophils 0.1 0.0 - 0.7 10e3/uL 09/25/2022 10:08 AM CDT [facility] Absolute Basophils 0.0 0.0 - 0.2 10e3/uL 09/25/2022 10:08 AM CDT [facility] Absolute Immature Granulocytes 0.0 <=0.4 10e3/uL 09/25/2022 10:08 AM CDT [facility] Absolute NRBCs 0.0 10e3/uL 09/25/2022 10:08 AM CDT [facility] Blood STRUCTURE OF LEFT UPPER LIMB / Unknown Venipuncture / Unknown 09/25/2022 10:04 AM CDT 09/25/2022 10:04 AM CDT Erick Hickman MD LAB - BLOOD ORDER [facility] [address] 1[address] [place] [address] * Hepatic panel (09/25/2022 10:04 AM CDT) Protein Total 6.8 6.4 - 8.3 g/dL 09/25/2022 10:31 AM CDT [facility] Albumin 4.6 3.5 - 5.2 g/dL 09/25/2022 10:31 AM CDT [facility] Bilirubin Total 0.4 <=1.2 mg/dL 09/25/2022 10:31 AM CDT [facility] Alkaline Phosphatase 59 35 - 104 U/L 09/25/2022 10:31 AM CDT [facility] AST 21 10 - 35 U/L 09/25/2022 10:31 AM CDT [facility] ALT 20 10 - 35 U/L 09/25/2022 10:31 AM CDT [facility] Bilirubin Direct <0.20 0.00 - 0.30 mg/dL 09/25/2022 10:31 AM CDT [facility] Blood STRUCTURE OF LEFT UPPER LIMB / Unknown Venipuncture / Unknown 09/25/2022 10:04 AM CDT 09/25/2022 10:04 AM CDT Erick Hickman MD LAB - BLOOD ORDER [facility] [address] [place] [address] documented in this encounter Visit Diagnoses Diagnosis MS (multiple sclerosis) (H) Multiple sclerosis documented in this encounter Care Teams Ward Aide Relationship Specialty Start Date End Date Jacobo Campos MD [facility] [address] [place] [address] PCP - General Internal Medicine 09/08/13 Erick Hickman MD [address] [place] [address] - [id number], [place] [address] Assigned Neuroscience Provider 04/27/20 Boy Rousseau MD [address] [id number], [place] [address] Assigned Surgical Provider 04/27/20 documented as of this encounter
--- OUTSIDE RECORDS SUMMARY | 2023-07-24 12:22 | XMS_ITS | Encounter Summary ---
Author Name Unknown Organization [facility] Address [address] [place] [address] Care Team Providers Care Returns Supervisor Name Role Phone Jacobo Campos MD Primary Care Provider Erick Hickman MD Unavailable [phone] Boy Rousseau MD Unavailable [phone] Reason for Visit * Reason Onset Date Comments Medication Request 04/30/2023 teriflunomide (AUBAGIO) 14 MG tablet Encounter Details Date Type Department Care Team (Late st Contact Info) Description 04/30/2023 Telephone [facility] [address] [phone] Erick Hickman MD [address] [place] [address] - [id number], [place] [id number] Medication Request (teriflunomide (AUBAGIO) 14 MG tablet ) Social History Tobacco Use Types Packs/Day [...] encounter Miscellaneous Notes * Telephone Encounter - CaiViolet suh - 04/30/2023 4:09 PM CDT [facility] Phone Message May a detailed message be left on voicemail: yes Reason for Call: Medication Question or concern regarding medication Prescription Clarification Name of Medication: teriflunomide (AUBAGIO) 14 MG tablet Prescribing Provider: Dr. Hickman Pharmacy: [facility] specialty pharmacy What on the order needs clarification? Mikki from the [facility] specialty pharmacy is requesting the patients prescription be sent over to them electronically as they can fill this prescription for $12. Pt is requesting this as well. Action Taken: Message routed to: [facility] Neurology Travel Screening: Not Applicable documented in this encounter Plan of Treatment Upcoming Encounters Date Type Department Care Team (Late st Contact Info) Description 09/24/2023 9:00 AM CDT Office Visit [facility] [address] [phone] Erick Hickman MD [address] [place] [address] documented as of this encounter Visit Diagnoses Diagnosis Multiple sclerosis (H) Multiple sclerosis documented in this encounter Care Teams Returns Supervisor Relationship Specialty Start Date End Date Jacobo Campos MD [facility] [address] [place] [address] PCP - General Internal Medicine 09/08/13 Erick Hickman MD [address] [place] [address] Assigned Neuroscience Provider 04/27/20 Boy Rousseau MD [address] [place], [place] [id number] [address] Assigned Surgical Provider 04/27/20 documented as of this encounter
--- OUTSIDE RECORDS SUMMARY | 2023-07-24 12:22 | XMS_ITS | Encounter Summary ---
Author Name Unknown Organization [employer] Address [address] [place] [address] Care Team Providers Care Animal Husbandry Professor Name Role Phone Jacobo Campos MD Primary Care Provider Guerita Holbrook RN Unavailable Erick Hickman MD Unavailable [phone] Boy Rousseau MD Unavailable [phone] Reason for Visit * Reason Onset Date Comments Call Back 10/17/2020 Encounter Details Date Type Department Care Team (Late st Contact Info) Description 10/17/2020 Telephone [facility] [address] [phone] Boy Rousseau MD [address] [place] [address] [id number] [address] Call Back Social History Tobacco Use Types Packs/Day Years [...] Telephone Encounter - Alecia Magallon CMA - 10/18/2020 11:25 AM CDT Spoke to patient regarding message below. Patient understands and agrees. Patient asked to please fax imaging report to Dr. Gamez at fax# [phone] Campos at fax# [phone]. No other questions or concerns at this time. * Telephone Encounter - Dian Gibbs RN - 10/18/2020 11:06 AM CDT Ok for MRI. 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 See implant information for details. * Telephone Encounter - Olga Vargas - 10/17/2020 3:49 PM CDT [facility] Phone Message May a detailed message be left on voicemail: yes Reason for Call: Other: Patient calling looking to speak with care team of Dr. Rousseau - states that her provider in [place] is needing clarification/ confirmation if she is able to get MRI on spine and brain and neck area. States that she is having back and spine issues. Please advise and call patient back at your earliest convenience to discuss further Action Taken: Other: [facility] Travel Screening: Not Applicable documented in this encounter Plan of Treatment Upcoming Encounters Date Type Department Care Team (Late st Contact Info) Description 09/24/2023 9:00 AM CDT Office Visit [facility] [address] [phone] Erick Hickman MD [address] [place] [address] - [id number] [place], [place] [address] documented as of this encounter Visit Diagnoses Not on filedocumented in this encounter Care Teams Animal Husbandry Professor Relationship Specialty Start Date End Date Jacobo Campos MD [facility] [address] [place] [address] PCP - General Internal Medicine 09/08/13 Guerita Holbrook, RN Specialty Absorber Operator Neurology 06/22/15 02/28/21 Erick Hickman MD [address] [place] [address] - [id number], [place] [address] Assigned Neuroscience Provider 04/27/20 Boy Rousseau MD [address] [place], [place] [id number], [place] [address] Assigned Surgical Provider 04/27/20 documented as of this encounter
--- OUTSIDE RECORDS SUMMARY | 2023-07-24 12:22 | XMS_ITS | Encounter Summary ---
Author Name Unknown Organization [facility] Address [address] [place] [address] Care Team Providers Care Ict Educator Name Role Phone Jacobo Campos MD Primary Care Provider Erick Hickman MD Unavailable [phone] Boy Rousseau MD Unavailable [phone] Encounter Details Date Type Department Care Team (Late Contact Info) Description 04/30/2023 MyC Medical Advice [facility] [address] [place] [phone] Tamara Mccullough Social History Tobacco Use Types Packs/Day Years [...] Description 09/24/2023 9:00 AM CDT Office Visit [facility] S[facility] [address] [phone] Erick Hickman MD [address] [place] [address] - [id number] [place] [address] documented as of this encounter Visit Diagnoses Not on filedocumented in this encounter Care Teams Ict Educator Relationship Specialty Start Date End Date Jacobo Campos MD [facility] [address] [place] [address] PCP - General Internal Medicine 09/08/13 Erick Hickman MD [address] [place] [address] - [id number] [address] Assigned Neuroscience Provider 04/27/20 Boy Rousseau MD [address] [place], [place] [id number] [address] Assigned Surgical Provider 04/27/20 documented as of this encounter
--- OUTSIDE RECORDS SUMMARY | 2023-07-24 12:22 | XMS_ITS | Encounter Summary ---
Author Name Unknown Organization [facility] Address [address] [place] [address] Care Team Providers Care Needle Process Felt Goods Supervisor Name Role Phone Jacobo Campos MD Primary Care Provider Erick Hickman MD Unavailable Boy Rousseau MD Unavailable Reason for Visit * Reason Onset Date Comments Medication Question 04/10/2023 MS oral medi cation Encounter Details Date Type Department Care Team (Late st Contact Info) Description 04/10/2023 Telephone [facility] [address] [phone] Erick Hickman MD [address] [place] [address] - [id number] [place] [address] Medication Question (MS oral medication ) Social History Tobacco Use Types Packs/Day [...] encounter Miscellaneous Notes * Telephone Encounter - Violet Cai - 04/10/2023 9:39 AM CDT [facility] Phone Message May a detailed message be left on voicemail: yes Reason for Call: Medication Question or concern regarding medication Prescription Clarification Name of Medication: N/A Prescribing Provider: Dr. Hickman Pharmacy: N/A What on the order needs clarification? Patient was calling as she is looking for some help regarding medication for her MS. Patient states that she will need to start a new mediation at the start of May as her insurance will not cover her current medication. Patient is requesting a call back to discuss. Please call patient and advise at [phone]. Action Taken: Message routed to: [facility] MS Neurology Travel Screening: Not Applicable documented in this encounter Plan of Treatment Upcoming Encounters Date Type Department Care Team (Late st Contact Info) Description 09/24/2023 9:00 AM CDT Office Visit [facility] [address] [phone] Erick Hickman MD [address] [place] [address] documented as of this encounter Visit Diagnoses Not on filedocumented in this encounter Care Teams Needle Process Felt Goods Supervisor Relationship Specialty Start Date End Date Jacobo Campos MD [facility] [address] [place] [address] PCP - General Internal Medicine 09/08/13 Erick Hickman MD [address] [place] [address] Assigned Neuroscience Provider 04/27/20 Boy Rousseau MD [address] [place], [place] [address], [place] [address] Assigned Surgical Provider 04/27/20 documented as of this encounter
--- OUTSIDE RECORDS SUMMARY | 2023-07-24 12:22 | XMS_ITS | Encounter Summary ---
Author Name Unknown Organization [facility] Address [address] [place] [address] Care Team Providers Care Door Fitter Name Role Phone Jacobo Campos MD Primary Care Provider Erick Hickman MD Unavailable [phone] Boy Rousseau MD Unavailable Reason for Visit * Reason Onset Date Comments Prior Auth - Medication 03/09/2023 Aubagio (brand) 14MG Tablets (APPEAL DENIED) Encounter Details Date Type Department Care Team (Late st Contact Info) Description 03/09/2023 [facility] [address] [phone] Erick Hickman MD [address] [place] [address] - [id number] [place] [address] Prior Auth - Medication (Aubagio (brand) 1... Social History Tobacco Use Types Packs/Day Years [...] encounter Miscellaneous Notes * Telephone Encounter - Tamara Mccullough - 05/11/2023 8:02 AM CST Images from the original note were not included. Aubagio appeal denial letter: SIT OPERATOR * Telephone Encounter - Tamara Mccullough - 05/01/2023 10:43 AM CDT MEDICATION APPEAL DENIED Medication: AUBAGIO 14 MG PO TABS Insurance Company: [employer] Denial Date: 04/29/2023 Denial Rational: Must try/fail at least 2 preferred products: Teriflunomide, Gilenya, Mavenclad Second Level Appeal Information: N/A Patient Notified: Yes Central Prior Authorization Team ONLY: Second level appeals will be managed by the clinic staff andprovider. Please contact the ealth Prior Authorization Team if additional information about the denial is needed. Spoke with insurance and confirmed the appeal was denied on 04/29/2023. A determination letter was mailed to the clinic. Request a copy be faxed as well. Thank you, Tamara Mccullough [facility] Liaison - Cardiology Neurology [place] [id number] [email or web address] * Telephone Encounter - Tamara Mccullough - 04/23/2023 2:00 PM CDT Confirmed that the appeal was resent 04/16, but was closed because they thought it was a duplicate.I spoke with Gege in [facility] and she provided another fax number to resend the appeal request. [phone] also sent to [phone] Thank you, Tamara Mccullough [facility] Liaison - Cardiology Neurology [address] [address] * Telephone Encounter - Tamara Mccullough - 04/16/2023 12:05 PM CDT Resubmitted appeal with update date, denial letter from 04/08, and OV from 09/2022. Thank you, Tamara Mccullough [facility] Liaison - Cardiology Neurology Multiple Sclerosis [address] [address] * Telephone Encounter - Tamara Mccullough - 04/16/2023 10:50 AM CDT Spoke with [facility] Appeals and the hostess party sales representative stated that since the appeal letter is dated 04/03 (prior to the PA denial) they cancelled the appeal request, because we didn't actually have a denial on file when the appeal letter was written. I expressed our frustration and explained nothing as changed pertaining to the PA/Appeal request and we were trying to be proactive in writing the letter anticipating the denial in April. We have to resubmit the appeal letter with a current date (after the PA submission). Thank you, Tamara Mccullough [facility] Liaison - Cardiology Neurology Multiple Sclerosis [address] [address] [email or web address] * Telephone Encounter - Tamara Mccullough - 04/08/2023 12:43 PM CDT Medication Appeal Initiation Medication: AUBAGIO 14 MG PO TABS Appeal Start Date: 04/08/2023 Insurance Company: [facility] Insurance Insurance Comments: Faxed and email appeal letter to [facility] of [place] Thank you, Tamara Mccullough [facility] Liaison - Cardiology Neurology Multiple Sclerosis [address] [address] * Telephone Encounter - CelsoTamara mccoy - 04/08/2023 12:32 PM CDT Images from the original note were not included. PRIOR AUTHORIZATION DENIED Medication: AUBAGIO 14 MG PO TABS Insurance Company: [facility] - Denial Date: 04/06/2023 Denial Rational: Must try/fail 3 alternative products: Mavenclad, Avonex, Gilenya - Must fail one additional drug since patient has already tried REbif and Glatiramer Appeal Information: Patient Notified: Yes * Telephone Encounter - Celsonadine Tamara Iris - 04/06/2023 11:03 AM CDT Images from the original note were not included. PA Initiation Medication: AUBAGIO 14 MG PO TABS Insurance Company: [facility] - Pharmacy Filling the Rx: [facility] - [place], [place] - [address] Filling Pharmacy Phone: Filling Pharmacy Fax: Start Date: 04/06/2023 Thank you, Tamara Mccullough [facility] Liaison - Cardiology Neurology Multiple Sclerosis [address] [address] * Telephone Encounter - Erick Hickman MD - 04/03/2023 10:32 AM CDT The best that we can do is write that she has been stable on brand name Aubagio and that it is medically appropriate for her to continue this medication. I cannot state that Aubagio is medically preferable to generic teriflunomide. This appeal is almost certainly going to be denied regardless of what we write. * Telephone Encounter - Erick Hickman MD - 03/18/2023 12:05 PM CDT Her options are: 1) To source this through the [facility] pharmacy (cost as noted) 2) Switch to leflunomide (generic, not specifically approved for MS and may not be covered by insurance but should have very similar effects as Aubagio--it is converted in the body to the active ingredient in Aubagio). Insurance may not cover for this indication, would be about $25/month through [employer] with a [employer] coupon. Other alternatives would include switching to a different medication or a trial off of disease modifying therapy. If she wants to discuss the latter two options she should make an appointment to discuss further. documented in this encounter Plan of Treatment Upcoming Encounters Date Type Department Care Team (Late st Contact Info) Description 09/24/2023 9:00 AM CDT Office Visit [facility] Multiple Sclerosis Clinic [address] [address] Erick Hickman MD [address] [place] [address] - [id number] [place] [address] documented as of this encounter Visit Diagnoses Not on filedocumented in this encounter Care Teams Door Fitter Relationship Specialty Start Date End Date Jacobo Campos MD [facility] [address] [place] [address] PCP - General Internal Medicine 09/08/13 Erick Hickman MD [address] [facility] - [id number] [place], [place] [address] Assigned Neuroscience Provider 04/27/20 Boy Rousseau MD [address] [place], [place] [address], [place] [address] Assigned Surgical Provider 04/27/20 documented as of this encounter
--- OUTSIDE RECORDS SUMMARY | 2023-07-24 12:22 | XMS_ITS | Encounter Summary ---
Author Name Unknown Organization [facility] Address [address] [place] [address] Care Team Providers Care Research Manufacturing Operator Name Role Phone Jacobo Campos MD Primary Care Provider Erick Hickman MD Unavailable [phone] Boy Rousseau MD Unavailable [phone] Reason for Visit * Reason Onset Date Comments Clinic Care Coordination - Follow-up 05/22/2022 MRI results Encounter Details Date Type Department Care Team (Late st Contact Info) Description 05/22/2022 Telephone [facility] [address] [address] Racquel Whitt RN Clinic Care Coordination - Follow-up (MRI results) Social History Tobacco Use Types Packs/Day Years Used Date Smoking Tobacco: Former Smokeless Tobacco: Never Alcohol Use Standard Drinks/Week Comments Yes 0 (1 standard drink = 0.6 oz pur e alcohol) occasional PHQ-2 Answer Date Recorded PHQ-2 Score 0 06/03/2022 Sex and Gender Information Value Date Recorded Sex Assigned at Not on file Gender Identity Not on file Sexual Orientation Not on file documented as of this encounter Miscellaneous Notes * Telephone Encounter - Racquel Whitt RN - 05/22/2022 12:52 PM CST Received report to MS clinic from 05/16/22 [place]. This has been submitted for urgent scanning to chart. Report states that ordering provider was Dr Hickman. MRA was actually ordered by neurosurgery, to be completed prior to neurosurgery follow up scheduled for 06/03. We had sent MRI order by Dr Hickman, for MS monitoring MRI to be completed with the already scheduled MRA. Requested MRI report and images. [facility] will fax MRI report to MS clinic fax. However,they are not able to push images to [facility]. Requested that images from both MRI and MRA be mailed to [facility] [place] clinic. Routing to Stroke & Endovascular RN Blue Leather Setter. Pt has follow-up appointment with Dr Rousseau in neurosurgery scheduled for 06/03. Appointment note states MRA needed prior to visit. Racquel Whitt RN PROFESSOR documented in this encounter Plan of Treatment Upcoming Encounters Date Type Department Care Team (Late st Contact Info) Description 09/24/2023 9:00 AM CDT Office Visit [facility] [address] [phone] Erick Hickman MD [address] [place] [address] documented as of this encounter Visit Diagnoses Not on filedocumented in this encounter Care Teams Research Manufacturing Operator Relationship Specialty Start Date End Date Jacobo Campos MD [facility] [address] [place] [address] PCP - General Internal Medicine 09/08/13 Erick Hickman MD [address] [place] [address] Assigned Neuroscience Provider 04/27/20 Boy Rousseau MD [address] [place], [place] [address] [address] Assigned Surgical Provider 04/27/20 documented as of this encounter
--- OUTSIDE RECORDS SUMMARY | 2023-07-24 12:22 | XMS_ITS | Encounter Summary ---
Author Name Unknown Organization [facility] Address [address] [place] [address] Care Team Providers Care Trust Mail Clerk Name Role Phone Jacobo Campos MD Primary Care Provider Erick Hickman MD Unavailable Boy Rousseau MD Unavailable Reason for Visit * Reason Onset Date Comments Call Back 08/18/2022 Authorization co de Encounter Details Date Type Department Care Team (Late st Contact Info) Description 08/18/2022 Telephone [facility] Neurology Clinic [address] [place] [address] Boy Rousseau MD [address] [place] [address] [id number] [place] [address] Call Back (Authorization code/) Social History Tobacco Use Types Packs/Day Years [...] Telephone Encounter - Alecia Magallon CMA - 08/21/2022 11:27 AM CST LVM for Hank stating- Per PA Team - We only obtain authorizations that are done at our facilities. For services done at other facilities, they are responsible for obtaining those authorizations. The facility can get the records so they can appeal the denial. Left our clinic number to call us back with any questions or concerns NING PROJECT MANAGER * Telephone Encounter - Dian Gibbs RN - 08/21/2022 10:15 AM CST Spoke with Hank. MRI and MRA on 05/2022. Insurance is denying the MRA as they do not have a priorauth. Scans were done at [facility]. Informed that given scans were not done at [facility] our PA Team will likely not get the PA however will route to them to advise. Understanding verbalized. Dian Gibbs RN 08/21/2022 10:21 AM Addendum: Per PA Team - You are correct. We only obtain authorizations that are done at our facilities. For services done at other facilities, they are responsible for obtaining those authorizations.The facility can get the records so they can appeal the denial. Message routed to Navigator Team to contact Hank with above information. Dian Gibbs RN 08/21/2022 11:21 AM NING PROJECT MANAGER * Telephone Encounter - Verónica Bell - 08/18/2022 2:48 PM CST [facility] Phone Message May a detailed message be left on voicemail: yes Reason for Call: Other: Hank from billing called to get a authorization code for MRA referral. att: Hank Please call Hank at [phone] to discuss further. Action Taken: Message routed to: [facility] Neurosurgery Travel Screening: Not Applicable NING PROJECT MANAGER documented in this encounter Plan of Treatment Upcoming Encounters Date Type Department Care Team (Late st Contact Info) Description 09/24/2023 9:00 AM CDT Office Visit [facility] Multiple Sclerosis [address] [phone] Erick Hikcman MD [address] [place] [address] [address] documented as of this encounter Visit Diagnoses Not on filedocumented in this encounter Care Teams Trust Mail Clerk Relationship Specialty Start Date End Date Jacobo Campos MD [address] [address] PCP - General Internal Medicine 09/08/13 Erick Hickman MD [address] [place] [address], [place] [address] Assigned Neuroscience Provider 04/27/20 Boy Rousseau MD [address] [place], [place] [address] [address] Assigned Surgical Provider 04/27/20 documented as of this encounter
--- OUTSIDE RECORDS SUMMARY | 2023-07-24 12:22 | XMS_ITS | Encounter Summary ---
Author Name Unknown Organization [facility] Address [address] [place] [address] Care Team Providers Care Pneumatic Tester Mechanic Name Role Phone Jacobo Campos MD Primary Care Provider Guerita Holbrook RN Unavailable Erick Hickman MD Unavailable [phone] Boy Rousseau MD Unavailable [phone] Reason for Visit * Reason Onset Date Comments Call Back 10/17/2020 Encounter Details Date Type Department Care Team (Late st Contact Info) Description 10/17/2020 Telephone [facility] [address] [phone] Erick Hickman MD [address] [place] [address] - [id number] [place] [address] Call Back Social History Tobacco Use Types [...] encounter Miscellaneous Notes * Telephone Encounter - Michelle Aguirre RN - 10/18/2020 1:38 PM CDT Spoke with Eliz about her upcoming MRIs. Advised her that she would be contacted IF Dr. Mena had concerns. Confirmed with Dr. Hickman that Eliz is fine to proceed with MRIs of her back and neck. Michelle Aguirre, RN * Telephone Encounter - Olga Vargas - 10/17/2020 3:53 PM CDT [facility] Call Center Phone Message May a detailed message be left on voicemail: yes Reason for Call: Other: Patient calling looking to speak with care team [facility] [place] [facility] needing clarification/ confirmation if she is able to get MRI onspine and brain and neck area. States that she is having back and spine issues and is in a lot of pain. Please advise and call patient back at your earliest convenience Action Taken: Other: MS Travel Screening: Not Applicable documented in this encounter Plan of Treatment Upcoming Encounters Date Type Department Care Team (Late st Contact Info) Description 09/24/2023 9:00 AM CDT Office Visit [facility] [address] [phone] Erick Hickman MD [address] [place] [address] - [id number] [place] [address] documented as of this encounter Visit Diagnoses Not on filedocumented in this encounter Care Teams Pneumatic Tester Mechanic Relationship Specialty Start Date End Date Jacobo Campos MD [facility] [address] [place] [address] PCP - General Internal Medicine 09/08/13 Guerita Holbrook, DIVINE Specialty Second Chef Neurology 06/22/15 02/28/21 Erick Hickman MD [address] [facility] [id number] [address] Assigned Neuroscience Provider 04/27/20 Boy Rousseau MD [address] [place], [place] [address], [place] [address] Assigned Surgical Provider 04/27/20 documented as of this encounter
--- OUTSIDE RECORDS SUMMARY | 2023-07-24 12:22 | XMS_ITS | Encounter Summary ---
Author Name Unknown Organization [facility] Address [address] [place] [address] Care Team Providers Care Superintendent Water [employer]er Systems Name Role Phone Jacobo Campos MD Primary Care Provider Erick Hickman MD Unavailable Boy Rousseau MD Unavailable Reason for Visit * Reason Onset Date Comments Call Back 04/22/2023 Aubagio appeal Encounter Details Date Type Department Care Team (Late st Contact Info) Description 04/22/2023 Telephone [facility] [address] [address] Erick Hickman MD [address] [place] [address] - [id number] [address] Call Back (Aubagio appeal ) Social History Tobacco Use Types Packs/Day [...] encounter Miscellaneous Notes * Telephone Encounter - Chely Nunez - 04/23/2023 10:45 AM CDT Health Call Center Phone Message May a detailed message be left on voicemail: yes Reason for Call: Eliz calling to request a call back due to her insurance will no longer cover teriflunomide (AUBAGIO) 14 MG tablet. Eliz stated that [facility] stated that they did not receive theappeal on 04/16/23 for this medication and is requesting to resubmit the appeal to [facility]. Eliz is requesting a call to [employer] at to explain the reason she is needing to take teriflunomide (AUBAGIO) 14 MG tablet. Please call Eliz to discuss at your earliest convenience. Action Taken: Message routed to: [facility] ([facility] MS Travel Screening: Not Applicable * Telephone Encounter - Suri Carr - 04/22/2023 12:45 PM CDT [facility] Call Center Phone Message May a detailed message be left on voicemail: yes Reason for Call: Other: Pt is requesting a call back in regards to the appeal with [facility] for her Aubagio medication. Pt states BS hasn't received the appeal. Please call pt back with update at # [phone] Action Taken: Message routed to: [facility] Neurology Travel Screening: Not Applicable documented in this encounter Plan of Treatment Upcoming Encounters Date Type Department Care Team (Late st Contact Info) Description 09/24/2023 9:00 AM CDT Office Visit [facility] Multiple Sclerosis [address] [phone] Erick Hickman MD [address] [place] [address] - [id number] [place], [place] [address] documented as of this encounter Visit Diagnoses Not on filedocumented in this encounter Care Teams Superintendent [employer] Systems Relationship Specialty Start Date End Date Jacobo Campos MD [facility] [address] [place] [address] PCP - General Internal Medicine 09/08/13 Erick Hickman MD [address] [place], [place] [id number] [address] Assigned Neuroscience Provider 04/27/20 Boy Rousseau MD [address] [place], [place] [id number], [place] [address] Assigned Surgical Provider 04/27/20 documented as of this encounter
--- OUTSIDE RECORDS SUMMARY | 2023-07-24 12:22 | XMS_ITS | Encounter Summary ---
Author Name Unknown Organization [facility] Address [address] [place] [address] Care Team Providers Care Wetlands Technician Name Role Phone Jacobo Campos MD Primary Care Provider Erick Hickman MD Unavailable [phone] Boy Rousseau MD Unavailable Reason for Visit * Reason Onset Date Comments Appointment 06/04/2022 Encounter Details Date Type Department Care Team (Late st Contact Info) Description 06/04/2022 Telephone [facility] Neurology Clinic [address] [phone] Boy Rousseau MD [address] [place] [address] [id number] [place] [address] Appointment Social History Tobacco Use Types Packs/Day Years [...] encounter Miscellaneous Notes * Telephone Encounter - Raissa Mendoza - 06/04/2022 6:59 AM CST Defer scheduling- 2yr follow up- Video Visit with Dr. Rousseau . 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 documented in this encounter Plan of Treatment Upcoming Encounters Date Type Department Care Team (Late st Contact Info) Description 09/24/2023 9:00 AM CDT Office Visit [facility] Multiple Sclerosis [address] [phone] Erick Hickman MD [address] [place] [address] documented as of this encounter Visit Diagnoses Not on filedocumented in this encounter Care Teams Wetlands Technician Relationship Specialty Start Date End Date Jacobo Campos MD [facility] [address] [place] [address] PCP - General Internal Medicine 09/08/13 Erick Hickman MD [address] [place] [address] Assigned Neuroscience Provider 04/27/20 Boy Rousseau MD [address] [place], [place] [address] [address] Assigned Surgical Provider 04/27/20 documented as of this encounter
--- OUTSIDE RECORDS SUMMARY | 2023-07-24 12:22 | XMS_ITS | Encounter Summary ---
Author Name Unknown Organization [place] Address [address] [place] [address] Care Team Providers Care Mill Hand Name Role Phone Jacobo Campos MD Primary Care Provider Erick Hickman MD Unavailable [phone] Boy Rousseau MD Unavailable [phone] Encounter Details Date Type Department Care Team (Late Contact Info) Description 10/01/2022 [facility] Medical Advice [facility] Multiple Sclerosis Clinic [address] [phone] Erick Hickman MD [address] [place] [address] [id number] [place] [address] Social History Tobacco Use Types Packs/Day Years [...] 09/24/2023 9:00 AM CDT Office Visit [facility] Multiple Sclerosis [address] [address] Erick Hickman MD [address] [place], [place] [address] [address] documented as of this encounter Visit Diagnoses Not on filedocumented in this encounter Care Teams Mill Hand Relationship Specialty Start Date End Date Jacobo Campos MD [facility] [address] [place] [address] PCP - General Internal Medicine 09/08/13 Erick Hickman MD [address] [place], [place] [address] [address] Assigned Neuroscience Provider 04/27/20 Boy Rousseau MD [address] [place], [place] [address] [address] Assigned Surgical Provider 04/27/20 documented as of this encounter
--- OUTSIDE RECORDS SUMMARY | 2023-07-24 12:23 | XMS_ITS | Encounter Summary ---
Author Name Unknown Organization [facility] Address [address] [place] [address]. [place] [address] Care Team Providers Care Purse Framer Name Role Phone Jacobo Campos MD Primary Care Provider Guerita Holbrook RN Unavailable Erick Hickman MD Unavailable [phone] Boy Rousseau MD Unavailable [phone] Reason for Visit * Reason Onset Date Comments Call Back 01/25/2020 Encounter Details Date Type Department Care Team (Late st Contact Info) Description 01/25/2020 [facility] Multiple Sclerosis Clinic [address] [phone] Erick Hickman MD [address] [place] [address] - [id number] [place], [place] [id number] Call Back Social History Tobacco Use Types Packs/Day Years Used Date Smoking Tobacco: Former Smokeless Tobacco: Never Alcohol Use Standard Drinks/Week Comments Yes 0 (1 standard drink = 0.6 oz pur e alcohol) occasional PHQ-2 Answer Date Recorded PHQ-2 Score 0 07/14/2018 Sex and Gender Information Value Date Recorded Sex Assigned at Not on file Gender Identity Not on file Sexual Orientation Not on file documented as of this encounter Miscellaneous Notes * Telephone Encounter - Pooja Aceves - 01/25/2020 8:54 AM CDT [facility] Call Center Phone Message May a detailed message be left on voicemail: yes Reason for Call: Other: Pt is at [facility], pt stateed she needs OK from Dr Melo Diaz to get MRIs done. Pt is requesting a call to the hospital for OK. She is there now. Action Taken: Message routed to: [facility] [place] Neuro Travel Screening: Not Applicable documented in this encounter Plan of Treatment Upcoming Encounters Date Type Department Care Team (Late st Contact Info) Description 09/24/2023 9:00 AM CDT Office Visit [facility] Multiple Sclerosis Clinic [address] [phone] Erick Hickman MD [address] [place] [address] documented as of this encounter Visit Diagnoses Not on filedocumented in this encounter Care Teams Purse Framer Relationship Specialty Start Date End Date Jacobo Campos MD [facility] [address] [place] [address] PCP - General Internal Medicine 09/08/13 Guerita Holbrook, DIVINE Specialty Electroencephalographic Technician Neurology 06/22/15 02/28/21 Erick Hickman MD [address] [place] [address] Assigned Neuroscience Provider 04/27/20 Boy Rousseau MD [address] [place] [address] [id number] [address] Assigned Surgical Provider 04/27/20 documented as of this encounter
--- OUTSIDE RECORDS SUMMARY | 2023-07-24 12:23 | XMS_ITS | Encounter Summary ---
Author Name Unknown Organization [facility] Address [address] [place] [address] Care Team Providers Care Expense Analyst Name Role Phone Jacobo Campos MD Primary Care Provider Guerita Holbrook RN Unavailable Erick Hickman MD Unavailable [phone] Boy Rousseau MD Unavailable [phone] Reason for Visit * Reason Onset Date Comments Patient Request 2019 Encounter Details Date Type Department Care Team (Late st Contact Info) Description 2019 Telephone [facility] Multiple Sclerosis Clinic [address] [phone] Erick Hickman MD [address] [place] [address] - [id number] [place] [address] Patient Request Social History Tobacco Use Types Packs/Day Years Used Date Smoking Tobacco: Former Smokeless Tobacco: Never PHQ-2 Answer Date Recorded PHQ-2 Score 0 07/14/2018 Sex and Gender Information Value Date Recorded Sex Assigned at Not on file Gender Identity Not on file Sexual Orientation Not on file documented as of this encounter Miscellaneous Notes * Telephone Encounter - Dian Gibbs RN - 2019 2:56 PM CDT Spoke with patient who states she needs some sort of authorization for angio scheduled for 10/05/19. She is not certain exactly what is needed. She does not believe it is a PA. She states it is a [employer] vendor that send out the authorization. It is suppose to come from her primary care provider and MD performing procedure. Patient just wants to ensure that procedure will be covered. Message sent to Financial Counseling to see if they are able to assist. * Telephone Encounter - Michelle Obrien - 2019 9:27 AM CDT [facility] Phone Message May a detailed message be left on voicemail: yes Reason for Call: Other: Pt requesting a referral be sent to her insurance regarding a cerebral angiogram that she is having done on 10/04. Pt requesting call back to discuss Action Taken: Message routed to: [facility] ([facility]): neuro Travel Screening: Not Applicable documented in this encounter Plan of Treatment Upcoming Encounters Date Type Department Care Team (Late st Contact Info) Description 09/24/2023 9:00 AM CDT Office Visit [facility] Multiple Sclerosis Clinic [address] [phone] Erick Hickman MD [address] [place] [address] - [id number] [place] [address] documented as of this encounter Visit Diagnoses Not on filedocumented in this encounter Care Teams Expense Analyst Relationship Specialty Start Date End Date Jacobo Campos MD [facility] [address] [place] [address] PCP - General Internal Medicine 09/08/13 Guerita Holbrook, DIVINE Specialty Clinical Assistant Neurology 06/22/15 02/28/21 Erick Hickman MD [address] - [id number] [place] [address] Assigned Neuroscience Provider 04/27/20 Boy Rousseau MD [address] [id number] [place], [place] [address] Assigned Surgical Provider 04/27/20 documented as of this encounter
--- OUTSIDE RECORDS SUMMARY | 2023-07-24 12:23 | XMS_ITS | Encounter Summary ---
Author Name Unknown Organization [place] Address [address] [place] [address] Care Team Providers Care Help Desk Coordinator Name Role Phone Jacobo Campos MD Primary Care Provider Guerita Holbrook RN Unavailable Erick Hickman MD Unavailable [phone] Boy Rousseau MD Unavailable [phone] Encounter Details Date Type Department Care Team (Late st Contact Info) Description 08/19/2012 Office Visit-[facility] Shoaib Garduno MD Social History Tobacco Use Types Packs/Day Years Used Date Smoking Tobacco: Never Assessed Sex and Gender Information Value Date Recorded Sex Assigned at Not on file Gender Identity Not on file Sexual Orientation Not on file documented as of this encounter Progress Notes * Shoaib Garduno - 08/19/2012 1:15 PM CST Environmental Law Professor: Shoaib Garduno Status: Final - Signature Encounter: 2012-08-19 13:15:00.000 Type: Neurology Letter [facility] [address] [address] August 19, 2012 Jacobo Campos M.D. [facility] [address] [place] [address] RE: Eliz Hartman : 1970 DHRUV: 08/19/2012 Dear Bill: I saw Eliz Hartman back. This is routine followup for multiple sclerosis. She was last seen in February of 2012. Since then, she has done well and really has had a rather benign course. Her initial presentation was with visual blurring from the left eye. She is on Rebif and tolerates the drug well. She has had a tendency towards slightly low white blood counts, and recent CBC is notable for a white count of 3800. She had normal liver profile and a vitamin D level of 74. She tells me she is going on a vacation to [place] soon. Current medications are Rebif, vitamin D, and calcium. Examination reveals she is alert and cooperative. She is in excellent spirits. Her pupils are equal, round, and react well to light, and I do not appreciate an afferent pupillary defect. There is some disc pallor noted. Her visual acuity is 20/20 bilaterally. Cranial nerves II through XII are otherwise intact. Strength is normal. Sensory examination is intact. Mjlznu-nl-cnoc is done well. Her gait is normal, and she is able to tandem walk. Reflexes are 1 -to- 2+ and symmetric. Plantar responsesare flexor. Impression: Multiple sclerosis - stable. Plan: She is going to continue on Rebif. I have asked her to get a followup CBC in October and gave her an order for this. I discussed with her how heat can sometimes bring out symptoms relevant to multiple sclerosis, and she will be aware of this while she is in [place]. She will continue to see me at least every six months. Sincerely, Shoaib Garduno MD Department of Neurology [facility]:11 Electronically signed by:Shoaib Garduno M.D. Aug 19 2012 4:30PM [facility] documented in this encounter Plan of Treatment Upcoming Encounters Date Type Department Care Team (Late st Contact Info) Description 09/24/2023 9:00 AM CDT Office Visit [facility] Multiple Sclerosis [address] [address] Erick Hickman MD [address] [place] [address] [id number] [place] [address] documented as of this encounter Visit Diagnoses Not on filedocumented in this encounter Care Teams Help Desk Coordinator Relationship Specialty Start Date End Date Jacobo Campos MD [facility] [address] [place] [address] PCP - General Internal Medicine 09/08/13 Guerita Holbrook, RN Specialty Wire Communications Engineer Neurology 06/22/15 02/28/21 Erick Hickman MD [address] [place], [place] [id number] [address] Assigned Neuroscience Provider 04/27/20 Boy Rousseau MD [address] [place], [place] [address]J [place] [address] Assigned Surgical Provider 04/27/20 documented as of this encounter
--- OUTSIDE RECORDS SUMMARY | 2023-07-24 12:23 | XMS_ITS | Encounter Summary ---
Author Name Unknown Organization [place] Address [address] [place] [address]. [place] [address] Care Team Providers Care Librarian Specialist Name Role Phone Jacobo Campos MD Primary Care Provider Guerita Holbrook RN Unavailable Erick Hickman MD Unavailable [phone] Boy Rousseau MD Unavailable [phone] Encounter Details Date Type Department Care Team (Late st Contact Info) Description 08/15/2020 Telephone [facility] S[facility] [address] [address] Erick Hickman MD [address] [place] [address] - [id number] [place] [address] Social History Tobacco Use Types [...] Exposure Response Date Recorded In the last month, have you been in contact with someone who was confirmed or suspected to have Coronavirus / COVID-19? No / Unsure 08/16/2020 10:51 AM RADIO STATION OPERATOR documented as of this encounter Miscellaneous Notes * Telephone Encounter - Sherri Ramirez MA - 08/15/2020 2:40 PM CST Called and informed patient, no MRI or labs needed before appointment per last OV 08/2019 Sherri Ramirez MA O STATION OPERATOR * Telephone Encounter - Kodak Oneill - 08/15/2020 2:13 PM CST [facility] Phone Message May a detailed message be left on voicemail: yes Reason for Call: Other: Pt called wondering if she was supposed to have blood work or an MRI done prior to to,geronimo's appt with Dr. Hickman. He appt is now scheduled at 11am tomorrow ans wants call back today to advise If she was supposed to have any of these tests done in advance of this appt. Please call Pt back to advise. Action Taken: Message routed to: [facility] Neuology Travel Screening: Not Applicable O STATION OPERATOR documented in this encounter Plan of Treatment Upcoming Encounters Date Type Department Care Team (Late st Contact Info) Description 09/24/2023 9:00 AM CDT Office Visit [facility] Multiple Sclerosis [address] [phone] Erick Hickman MD [address] [place] [address] - [id number] [place] [address] documented as of this encounter Visit Diagnoses Not on filedocumented in this encounter Care Teams Librarian Specialist Relationship Specialty Start Date End Date Jacobo Campos MD [facility] [address] [place] [address] PCP - General Internal Medicine 09/08/13 Guerita Holbrook, RN Specialty Portrait Studio Photographer Neurology 06/22/15 02/28/21 Erick Hickman MD [address] [place] [address] [id number] [place] [address] Assigned Neuroscience Provider 04/27/20 Boy Rousseau MD [address] [place], [place] [address], [place] [address] Assigned Surgical Provider 04/27/20 documented as of this encounter
--- OUTSIDE RECORDS SUMMARY | 2023-07-24 12:23 | XMS_ITS | Encounter Summary ---
Author Name Unknown Organization [place] Address [address] [place] [address] Care Team Providers Care Apartment Community Assistant Manager Name Role Phone Jacobo Campos MD Primary Care Provider Guerita Holbrook RN Unavailable Erick Hickman MD Unavailable [phone] Boy Rousseau MD Unavailable [phone] Reason for Visit * Reason Onset Date Comments Refill Request 05/18/2019 AUBAGIO 14 MG ta blet Encounter Details Date Type Department Care Team (Late st Contact Info) Description 05/18/2019 [facility] Sclerosis [facility] [address] [address] Erick Hickman MD [address] [place] [address] - [id number] [place] [address] Refill Request (AUBAGIO 14 MG tablet) Social History Tobacco Use Types Packs/Day Years Used Date Smoking Tobacco: Former Smokeless Tobacco: Never PHQ-2 Answer Date Recorded PHQ-2 Score 0 07/14/2018 Sex and Gender Information Value Date Recorded Sex Assigned at Not on file Gender Identity Not on file Sexual Orientation Not on file documented as of this encounter Miscellaneous Notes * Telephone Encounter - Charley Horowitz RN - 05/18/2019 2:26 PM CST Received refill request for Aubagio from patient. Patient was last seen in December and has follow up appointment in August with Dr. Hickman. Refilled for 1 year per MS refill protocol. Charley RN Called patient and made her aware of this. No further needs at this time. RESS SUPERVISOR * Telephone Encounter - Christopher De Anda - 05/18/2019 1:57 PM CST [facility] Call Center Phone Message May a detailed message be left on voicemail: no Reason for Call: Medication Refill Request Has the patient contacted the pharmacy for the refill? Yes Name of medication being requested: AUBAGIO 14 MG tablet Provider who prescribed the medication: Dr. Hickman Pharmacy: [facility] Specialty Date medication is needed: Pt has about 8-12 left, Pt needs a larger supply for May and June. Pt wants the 28 day supply packets; Pt lost a few down the sink taking them out of the bottle. Pt wants a 3 month supply due to insurance changes in July. Please call Pt back to discuss. Action Taken: Message routed to: [facility] NEUROLOGY ADULT [facility] RESS SUPERVISOR documented in this encounter Plan of Treatment Upcoming Encounters Date Type Department Care Team (Late st Contact Info) Description 09/24/2023 9:00 AM CDT Office Visit [facility] Multiple Sclerosis Clinic [address] [address] Erick Hickman MD [address] [place] [address] - [id number] [place] [address] documented as of this encounter Visit Diagnoses Diagnosis Multiple sclerosis (H) Multiple sclerosis documented in this encounter Care Teams Apartment Community Assistant Manager Relationship Specialty Start Date End Date Jacobo Campos MD [facility] [address] [place] [address] PCP - General Internal Medicine 09/08/13 Guerita Holbrook, RN Specialty Extruder Operator Neurology 06/22/15 02/28/21 Erick Hickman MD [address] [place] [address] - [id number], [place] [address] Assigned Neuroscience Provider 04/27/20 Boy Rousseau MD [address] [place], [place] [address], [place] [address] Assigned Surgical Provider 04/27/20 documented as of this encounter
--- OUTSIDE RECORDS SUMMARY | 2023-07-24 12:23 | XMS_ITS | Encounter Summary ---
Author Name Unknown Organization [place] Address [address] [place] [address] Care Team Providers Care Inside Wirer Name Role Phone Jacobo Campos MD Primary Care Provider Guerita Holbrook RN Unavailable Erick Hickman MD Unavailable [phone] Boy Rousseau MD Unavailable [phone] Reason for Visit * Reason Onset Date Comments letter and symptoms 01/26/2020 update worka bility letter and discuss symptoms. Encounter Details Date Type Department Care Team ([facility] st Contact Info) Description 01/26/2020 Telephone [facility] Neurosurgery [address] [place] [address] [address] [place] [address] Boy Rousseau MD [address] [place] [address] [id number] [place] [address] letter and symptoms (update workability letter and discuss symptoms.) Social History Tobacco Use Types Packs/Day Years [...] Telephone Encounter - Charley Horowitz RN - 02/01/2020 11:05 AM CDT Called and spoke with patient and reported that her recent MRI does not show any clear evidence of new demyelinating lesions nor any structural change (disc herniation, etc) and that her current symptoms (pain) are unrelated to MS. She expresses understanding of this but tells me her PCP told her to see a neurologist for a 'bulged disc'. I explained to the patient that this is not a neurologic issue; it is an orthopedic/spine issue. I advised her to follow up with her PCP to inquire about a referral. She will do this. * Telephone Encounter - Erick Hickman MD - 01/31/2020 3:26 PM CDT I am not sure exactly what her PCP told her, but the MRI does not show any clear evidence of new demyelinating lesions nor any structural change (disc herniation, etc.). I do not think that her current symptoms are MS related. * Telephone Encounter - Jenae Rossi - 01/30/2020 12:43 PM CDT Action 01/30/20 12:43 PM - Jenae Oquendo Taken Imaging disc received from [facility] and sent to [facility] to be uploaded into PACs. 01/25/20 - Cervical Spine WO * Telephone Encounter - Charley Horowitz RN - 01/27/2020 3:37 PM CDT Called [facility] and they will fax c-spine MRI report from 01/24. They are unable to push images to [facility] and won't send a disc without an updated JED. I called the patient and she will call [facility] and have them release images. Report rec'd via fax. This will be scanned to chart. aware. * Telephone Encounter - Charley Horowitz RN - 01/27/2020 12:24 PM CDT Called [facility] and they will attach MRI to patient's chart. Dr. Hickman, please review and advise. Thanks. * Telephone Encounter - Dian Gibbs RN - 01/27/2020 8:58 AM CDT Patient is requesting letter for light duty at work due to back pain. 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 She has been using Tylenol with relief. She states headaches are due to sleeping propped up on pillows, which she must do because of back pain. Patient had spine MRI yesterday, ordered by primary care provider, Dr. Jacobo Campos at [facility]. Dr. Campos reportedly stated that patient has spinal inflammation and advised patient to contact neurology to discuss. Patient sees Neuro, Dr. Lopez for MS. Patient also states since treatment with WEB she is unable to wear her contacts as she experiences blurred vision. This does not occur while wearing glasses. Plan: * Advised patient to contact Dr. Campos to request letter for back pain. * Appointment scheduled with [facility] on 01/30 at 1:10 to discuss headaches and blurred vision. * Message sent to Dr. Lopez???s team regarding Dr. Campos???s request for Neuro to review and discuss MRI. * Patient will contact [facility] to have imaging sent/pushed to PACS Patient verbalized understanding and agreed to this plan. Patient has my contact information and was encouraged to call with questions/concerns. Dian Gibbs RN 01/27/2020 9:29 AM * Telephone Encounter - Chastity Ma - 01/26/2020 8:01 AM CDT [facility] Phone Message May a detailed message be left on voicemail: yes Reason for Call: Other: Patient is requesting to get a workability letter indicating that she needsto be on light duty and not able to lift anything at this time. She states she experienced a reallybad headache yesterday as it still present today. She states she has also been having really back back pain/issue and had MRI's done this week and is expecting results soon. Patient is wondering if her back issues are related to her surgery. She is also wondering if its normal to still get headaches after 2 month post surgery. 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 Fax number to [employer] [facility]: [phone] Please call once request is complete and to discuss. Action Taken: Other: [facility] NEUROSURGERy Travel Screening: Not Applicable documented in this encounter Plan of Treatment Upcoming Encounters Date Type Department Care Team (Late st Contact Info) Description 09/24/2023 9:00 AM CDT Office Visit [facility] Multiple Sclerosis Clinic [address] [address] Erick Hickman MD [address] [place] [address] documented as of this encounter Visit Diagnoses Not on filedocumented in this encounter Care Teams Inside Wirer Relationship Specialty Start Date End Date Jacobo Campos MD [facility] [address] [place] [address] PCP - General Internal Medicine 09/08/13 Guerita Holbrook, DIVINE Specialty Sales Representative [employer] Neurology 06/22/15 02/28/21 Erick Hickman MD [address] [place] [address] Assigned Neuroscience Provider 04/27/20 Boy Rousseau MD [address] [facility] [id number] [place] [address] Assigned Surgical Provider 04/27/20 documented as of this encounter
--- OUTSIDE RECORDS SUMMARY | 2023-07-24 12:23 | XMS_ITS | Encounter Summary ---
Author Name Unknown Organization [place] Address [address] [place] [address] Care Team Providers Care Campground Cleaning Attendant Name Role Phone Jacobo Campos MD Primary Care Provider Guerita Holbrook RN Unavailable Erick Hickman MD Unavailable [phone] Boy Rousseau MD Unavailable [phone] Reason for Visit * Reason Onset Date Comments Prior Auth - Medication 06/23/2019 teriflun omide (AUBAGIO) 14 MG tablet Call Back 06/23/2019 Encounter Details Date Type Department Care Team (Late st Contact Info) Description 06/23/2019 Telephone [facility] Multiple Sclerosis [address] [address] Erick Hickman MD [address] [place] [address] - [id number] [place], [place] [address] Prior Auth - Medication (teriflunomide (AUBAGIO) 14 MG tablet); Call Back Social History Tobacco Use Types Packs/Day Years Used Date Smoking Tobacco: Former Smokeless Tobacco: Never PHQ-2 Answer Date Recorded PHQ-2 Score 0 07/14/2018 Sex and Gender Information Value Date Recorded Sex Assigned at Not on file Gender Identity Not on file Sexual Orientation Not on file documented as of this encounter Miscellaneous Notes * Telephone Encounter - Charley Horowitz RN - 07/07/2019 1:20 PM CST Aubagio Rx sent to [facility]. OMER SALES SERVICE MANAGER * Telephone Encounter - Tamara Mccullough - 07/07/2019 1:01 PM CST Images from the original note were not included. I spoke with the patient and she can now fill with [facility]. I've already added her insurance through [facility] [place] and obtained her copay card and added both to their system. A new RX for Aubagio will need to be sent to [facility] to initiate their new patient process. PDM Copay Card: [facility] [place] insurance: Thank you, Tamara Mccullough [facility] [address] [place] [address] [email or web address] OMER SALES SERVICE MANAGER * Telephone Encounter - Charley Horowitz RN - 07/07/2019 11:48 AM CST Tamara, please see below. Patient states she changed insurance. Can you investigate what pharmacy sheshould use? OMER SALES SERVICE MANAGER * Telephone Encounter - Carlos Godwin - 07/07/2019 9:50 AM CUSTOMER SALES SERVICE MANAGER [facility] Call Center Phone Message May a detailed message be left on voicemail: yes Reason for Call: Other: Rahul calling to request a call back. She states she switched insurance to [employer] and pharmacies to [facility]. She would like to know if she's able to get her Aubagio. ([facility] , Phone# [phone]) Please call her back to discuss. Action Taken: Message routed to: [facility] neuro OMER SALES SERVICE MANAGER * Telephone Encounter - Joy Guevara - 06/24/2019 9:33 AM CST Images from the original note were not included. Prior Authorization Approval Authorization Effective Date: 06/24/2019 Authorization Expiration Date: 06/24/2020 Medication: teriflunomide (AUBAGIO) 14 MG tablet Approved Dose/Quantity: 30 Reference #: [id number] Insurance Company: [employer] [phone] Which Pharmacy is filling the prescription (Not needed for infusion/clinic administered): [facility] [place] [address] [employer]- no interruption in therapy - previous PA was good until 07/08/2019 OMER SALES SERVICE MANAGER * Telephone Encounter - Joy Guevara - 06/23/2019 3:11 PM CST PA Initiation Medication: teriflunomide (AUBAGIO) 14 MG tablet Insurance Company: [employer] [phone] Pharmacy Filling the Rx: [facility] Filling Pharmacy Phone: Filling Pharmacy Fax: Start Date: 06/23/2019 Central Prior Authorization Team Filled out form and faxed it to [facility] fax# [phone] OMER SALES SERVICE MANAGER * Telephone Encounter - Felicia Morin - 06/23/2019 10:20 AM CST Images from the original note were not included. OMER SALES SERVICE MANAGER documented in this encounter Plan of Treatment Upcoming Encounters Date Type Department Care Team (Late st Contact Info) Description 09/24/2023 9:00 AM CDT Office Visit [facility] Multiple Sclerosis [address] [address] Erick Hickman MD [address] [facility], [place] [address] documented as of this encounter Visit Diagnoses Diagnosis Multiple sclerosis (H)- Primary Multiple sclerosis documented in this encounter Care Teams Campground Cleaning Attendant Relationship Specialty Start Date End Date Jacobo Campos MD [facility] [address] [place] [address] PCP - General Internal Medicine 09/08/13 Guerita Holbrook, DIVINE Specialty Engine Pilot Neurology 06/22/15 02/28/21 Erick Hickman MD [address] [place], [place] [address] [address] Assigned Neuroscience Provider 04/27/20 Boy Rousseau MD [address] [place], [place] [address] [address] Assigned Surgical Provider 04/27/20 documented as of this encounter
--- OUTSIDE RECORDS SUMMARY | 2023-07-24 12:23 | XMS_ITS | Encounter Summary ---
Author Name Unknown Organization [place] Address [address] [place] [address] Care Team Providers Care Sales Contracts Analyst Name Role Phone Jacobo Campos MD Primary Care Provider Guerita Holbrook RN Unavailable Erick Hickman MD Unavailable [phone] Boy Rousseau MD Unavailable [phone] Reason for Visit * Reason Onset Date Comments Appointment 12/08/2019 Upcoming appoint ment question Encounter Details Date Type Department Care Team (Late st Contact Info) Description 12/08/2019 Telephone [facility] Neurosurgery [address] [facility] [address] [place] [address] Boy Rousseau MD [address] [place] [address] [id number] [place] [address] Appointment (Upcoming appointment question) Social History Tobacco Use Types Packs/Day Years [...] have Coronavirus / COVID-19? No / Unsure 11/23/2019 8:03 AM CDT documented as of this encounter Miscellaneous Notes * Telephone Encounter - Dian Gibbs RN - 12/09/2019 3:27 PM CDT [facility] informing patient that appointment can be changed to phone visit and will have scheduling reach out. Dian Gibbs RN 12/09/2019 3:27 PM * Telephone Encounter - Antonina Torres - 12/08/2019 8:39 AM CDT [facility] Call Center Phone Message May a detailed message be left on voicemail: yes Reason for Call: Patient stating she does not have video capabilities for upcoming visit on 12/20/19with Provider. Caller questioning if Dr. Rousseau would prefer to see patient in clinic or complete a telephone call. Please advise. Action Taken: Message routed to: [facility] NEUROSURGERY Travel Screening: Negative documented in this encounter Plan of Treatment Upcoming Encounters Date Type Department Care Team (Late st Contact Info) Description 09/24/2023 9:00 AM CDT Office Visit [facility] Multiple Sclerosis [address] [phone] Erick Hickman MD [address] [place] [address] - [id number] [place] [address] documented as of this encounter Visit Diagnoses Not on filedocumented in this encounter Care Teams Sales Contracts Analyst Relationship Specialty Start Date End Date Jacobo Campos MD [facility] [address] [place] [address] PCP - General Internal Medicine 09/08/13 Guerita Holbrook, DIVINE Specialty Clean Room Assembler Neurology 06/22/15 02/28/21 Erick Hickman MD [address] [facility] [id number] [address] Assigned Neuroscience Provider 04/27/20 Boy Rousseau MD [address] [place], [place] [address], [place] [address] Assigned Surgical Provider 04/27/20 documented as of this encounter
--- OUTSIDE RECORDS SUMMARY | 2023-07-24 12:23 | XMS_ITS | Encounter Summary ---
Author Name Unknown Organization [facility] Address [address] [place] [address] Care Team Providers Care Medical Recruiter Name Role Phone Jacobo Campos MD Primary Care Provider Guerita Holbrook RN Unavailable Erick Hickman MD Unavailable [phone] Boy Rousseau MD Unavailable [phone] Reason for Visit * Reason Onset Date Comments Orders 07/12/2019 MRI head, Spine Encounter Details Date Type Department Care Team (Late st Contact Info) Description 07/12/2019 Telephone [facility] [address] [phone] Erick Hickman MD [address] [place] [address] - [id number] [place] [address] Orders (MRI head, Spine) Social History Tobacco Use Types Packs/Day Years Used Date Smoking Tobacco: Former Smokeless Tobacco: Never PHQ-2 Answer Date Recorded PHQ-2 Score 0 07/14/2018 Sex and Gender Information Value Date Recorded Sex Assigned at Not on file Gender Identity Not on file Sexual Orientation Not on file documented as of this encounter Miscellaneous Notes * Telephone Encounter - Charley Horowitz RN - 07/12/2019 10:58 AM CST Orders faxed. Patient made aware of this. TIONAL EDUCATION TEACHER * Telephone Encounter - Charley Horowitz RN - 07/12/2019 10:37 AM CST Patient is scheduled to see Dr. Hickman 08/18; per the last office note, MD would like MRI of brain and c-spine. Orders placed on behalf of MD. Once orders co-signed, will fax to [facility] (fax [phone]). TIONAL EDUCATION TEACHER * Telephone Encounter - Carlos Godwin - 07/12/2019 10:26 AM VOCATIONAL EDUCATION TEACHER [facility] Call Center Phone Message May a detailed message be left on voicemail: yes Reason for Call: Order(s): Other: Reason for requested: MRI brain, spine Date needed: as soon as possible Provider name: Marylou Please send order to [place], [place] Action Taken: Message routed to: [facility] neuro TIONAL EDUCATION TEACHER documented in this encounter Plan of Treatment Upcoming Encounters Date Type Department Care Team (Late st Contact Info) Description 09/24/2023 9:00 AM CDT Office Visit [facility] Multiple Sclerosis [address] [phone] Erick Hickman MD [address] [place] [address] - [id number] [place] [address] documented as of this encounter Visit Diagnoses Diagnosis Multiple sclerosis (H)- Primary Multiple sclerosis documented in this encounter Care Teams Medical Recruiter Relationship Specialty Start Date End Date Jacobo Campos MD [facility] [address] [place] [address] PCP - General Internal Medicine 09/08/13 Guerita Holbrook, RN Specialty Skates Operator Neurology 06/22/15 02/28/21 Erick Hickman MD [address] [facility] - [id number] [address] Assigned Neuroscience Provider 04/27/20 Boy Rousseau MD [address] [facility] [id number], [place] [id number] Assigned Surgical Provider 04/27/20 documented as of this encounter
== END 2023-07-24 12:19 | disposition home or self-care (01) ==
LOC: INJ CL 12:19
PROVIDERS: PCP Internal Medicine; Visit Provider Family Medicine
DX: M54.16 Radiculopathy, lumbar region (principal); M51.36 Other intervertebral disc degeneration, lumbar region
CPT/HCPCS: 64483; J1100; Q9966

== ENCOUNTER 2023-08-26 13:45 | Outpatient (RCR) | payer OTHER, BC, SELFPAY | END 2023-11-20 13:38 | disposition home or self-care (01) | PROVIDERS: PCP Internal Medicine; Visit Provider Family Medicine | DX: Z02.6 Encounter for examination for insurance purposes (principal); M54.16 Radiculopathy, lumbar region; M51.26 Other intervertebral disc displacement, lumbar region; S76.012A Strain of muscle, fascia and tendon of left hip, initial encounter; M25.552 Pain in left hip; M62.81 Muscle weakness (generalized); M79.605 Pain in left leg; Z51.89 Encounter for other specified aftercare | CPT/HCPCS: 97110; 97140; 97161 ==

== ENCOUNTER 2023-11-02 08:58 | Outpatient (CLI) | payer BC, SELFPAY ==
--- NOTE | 2023-11-02 09:45 | MR_ITS ---
Patient: MERY COELHO Facility:?[facility] RIS Patient ID:?[id number] Site Patient ID:?[id number]. Site :?[id number] Study:?MRI-Head WO/W DOTAREM 14ML-11/02/2023 10:39:21 AM Ordering Physician:ELANA PATEL Final Report: INDICATION: Multiple sclerosis. TECHNIQUE: Multiplanar multi sequence MR imaging of the brain prior to and following intravenous contrast. COMPARISON: MRI brain 05/16/2022. FINDINGS: Rlys-on-hbsfovtr FLAIR hyperintense lesions in the supratentorial white matter are not significantly changed. Notable lesion involving the right parietal and right periatrial white matter as well as the right thalamus is associated with ex vacuo dilatation of the right lateral ventricle. Additional notable lesions are oriented perpendicular to the lateral ventricles. Mild infratentorial lesions. Mild T1 hypointense lesion load. No enhancing lesions. Stable ventricular size with ex vacuo dilatation of the right lateral ventricle posteriorly. No mass effect or midline shift. No pathologic intracranial enhancement. 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 No intracranial hemorrhage or pathologic extra-axial fluid collection. No diffusion restriction to suggest acute infarction. The major arterial flow voids of the skull base are preserved. The globes are symmetric. The paranasal sinuses are well aerated. The mastoid air cells are clear. IMPRESSION: 1. No acute intracranial abnormality. No significant change compared to the prior exam. 2. Oazm-am-vsshratx supratentorial and mild infratentorial FLAIR hyperintense white matter lesions, the majority of which represent chronic demyelinating plaques. Dominant lesion within the right parietal and right periatrial region may represent a chronic demyelinating plaque or sequelae of chronic infarction/ischemia in the setting of a large developmental venous anomaly. No enhancing lesions to suggest active demyelination. 3. Mild T1 hypointense lesion load. Dictated by Wagner Cunningham MD @ 11/02/2023 2:07:22 PM Signed by:?Wagner Cunningham MD @11/02/2023 2:07:22 PM (Electronic Signature)
--- NOTE | 2023-11-02 10:45 | MR_ITS ---
Patient: MERY COELHO Facility:?[facility] Patient ID:?[id number] Site Patient ID:?[id number]. Site :?[id number] Study:?MRI-Spine Cervical WO/W DOTAREM 14ML-11/02/2023 10:40:26 AM Ordering Physician:ELANA PATEL Final Report: INDICATION: Multiple sclerosis, followup. COMPARISON: 01/25/2020. TECHNIQUE: Spine cortical. Post gadolinium to weighted sequences. FINDINGS: Normal vertebral body and facet alignment. No fractures. No vertebral body loss of height. No spondylolisthesis. No evidence injury. Normal marrow signal. No suspicious osseous lesions. Compared to the previous exam, stable multilevel patchy T2 and STIR hyperintense lesions of the ventral medulla, cervical medullary junction and within the cervical cord most conspicuous at C2-3, C4-5 and C7-T1. No cord atrophy or expansion. No corresponding enhancement to suggest active demyelination. No suspicious osseous lesions. C1-2: No spinal canal narrowing. C2-3: No spinal canal or neural foraminal narrowing. C3-4: No spinal canal or neural foraminal narrowing. C4-5: No spinal canal neural foraminal narrowing. C5-6: Mild disc degeneration posterior disc bulge. No spinal canal or neural foraminal narrowing. C6-7: Disc degeneration and posterior disc bulge disc osteophyte complex. Partial effacement of the ventral thecal sac. Mild narrowing of the spinal canal. No neural foraminal narrowing. C7-T1: No spinal canal or neural foraminal narrowing. IMPRESSION: 1. Normal alignment. No fractures. 2. Stable multilevel patchy T2 and STIR hyperintense cord lesions consistent with chronic demyelinating plaques. No cord atrophy or expansion. 3. No abnormal enhancement 4. At C6-7, disc degeneration posterior disc bulge. Mild narrowing of the spinal canal. 5. No spinal canal or neural foraminal narrowing at the remaining levels Dictated by Juancarlos Hollis MD @ 11/02/2023 2:18:57 PM Signed by:?Juancarlos Hollis MD @11/02/2023 2:18:57 PM (Electronic Signature)
== END 2023-11-02 08:59 | disposition home or self-care (01) ==
LOC: MRI 08:59
PROVIDERS: PCP Internal Medicine; Visit Provider Internal Medicine
DX: G35 Multiple sclerosis (principal); M50.323 Other cervical disc degeneration at C6-C7 level; I67.82 Cerebral ischemia
CPT/HCPCS: 70553; 72156; A9575

== ENCOUNTER 2023-11-04 07:58 | Outpatient (CLI) | payer BC, SELFPAY ==
--- OUTSIDE RECORDS SUMMARY | 2023-11-02 08:50 | XMS_ITS | Encounter Summary ---
Author Name Unknown Organization [facility] Address [address] [place] [id number] Care Team Providers Care Guest Experience Captain Name Role Phone Jacobo Campos MD Primary Care Provider Erick Hickman MD Unavailable [phone] Boy Rousseau MD Unavailable [phone] Encounter Details Date Type Department Care Team (Late Contact Info) Description 10/08/2023 10:15 AM CDT Lab [facility] [address] [place] [address] MS (multiple sclerosis) (H) Social History Tobacco Use Types Packs/Day Years Used Date Smoking Tobacco: Former Smokeless Tobacco: Never Alcohol Use Standard Drinks/Week Comments Yes 0 (1 standard drink = 0.6 oz pur e alcohol) occasional PHQ-2 Answer Date Recorded PHQ-2 Score 0 10/08/2023 Adolescent Education Answer Date Record ed Getting School Help Needed Not on file 03/27 Sex and Gender Information Value Date Recorded Sex Assigned at Not on file Gender Identity Not on file Sexual Orientation Not on file documented as of this encounter Plan of Treatment Upcoming Encounters Date Type Department Care Team (Late Contact Info) Description 05/26/2024 9:30 AM IRON WORKER APPRENTICE Office Visit [facility] [address] [phone] Erick Hickman MD [address] [place] [address] - [id number] [place] [address] documented as of this encounter Procedures Procedure Name Priority Date/Time Associated Diagnosis Comments CBC WITH PLATELETS AND DIFFERENTIAL Routine 10/08/2023 10:20 AM CDT MS (multiple sclerosis) (H) CBC WITH PLATELETS & DIFFERENTIAL Routine 10/08/2023 10:20 AM CDT MS (multiple sclerosis) (H) HEPATIC FUNCTION PANEL Routine 10/08/2023 10:20 AM CDT MS (multiple sclerosis) (H) documented in this encounter Results * CBC with platelets and differential (10/08/2023 10:20 AM CDT) WBC Count 4.6 4.0 - 11.0 10e3/uL 10/08/2023 10:24 AM CDT [facility] RBC Count 4.64 3.80 - 5.20 10e6/uL 10/08/2023 10:24 AM CDT [facility] Hemoglobin 13.3 11.7 - 15.7 g/dL 10/08/2023 10:24 AM CDT [facility] Hematocrit 40.6 35.0 - 47.0 % 10/08/2023 10:24 AM CDT [facility] MCV 88 78 - 100 fL 10/08/2023 10:24 AM CDT [facility] MCH 28.7 26.5 - 33.0 pg 10/08/2023 10:24 AM CDT [facility] MCHC 32.8 31.5 - 36.5 g/dL 10/08/2023 10:24 AM CDT [facility] RDW 14.6 10.0 - 15.0 % 10/08/2023 10:24 AM CDT [facility] Platelet Count 297 150 - 450 10e3/uL 10/08/2023 10:24 AM CDT [facility] % Neutrophils 55 % 10/08/2023 10:24 AM CDT [facility] % Lymphocytes 31 % 10/08/2023 10:24 AM CDT [facility] % Monocytes 12 % 10/08/2023 10:24 AM CDT [facility] % Eosinophils 1 % 10/08/2023 10:24 AM CDT [facility] % Basophils 1 % 10/08/2023 10:24 AM CDT [facility] % Immature Granulocytes 0 % 10/08/2023 10:24 AM CDT [facility] NRBCs per 100 WBC 0 <1 /100 024 10:24 AM CDT [facility] Absolute Neutrophils 2.5 1.6 - 8.3 10e3/uL 10/08/2023 10:24 AM CDT [facility] Absolute Lymphocytes 1.4 0.8 - 5.3 10e3/uL 10/08/2023 10:24 AM CDT [facility] Absolute Monocytes 0.5 0.0 - 1.3 10e3/uL 10/08/2023 10:24 AM CDT [facility] Absolute Eosinophils 0.0 0.0 - 0.7 10e3/uL 10/08/2023 10:24 AM CDT [facility] Absolute Basophils 0.0 0.0 - 0.2 10e3/uL 10/08/2023 10:24 AM CDT [facility] Absolute Immature Granulocytes 0.0 <=0.4 10e3/uL 10/08/2023 10:24 AM CDT [facility] Absolute NRBCs 0.0 10e3/uL 10/08/2023 10:24 AM CDT [facility] Blood STRUCTURE OF RIGHT UPPER LIMB / Unknown Venipuncture / Unknown 10/08/2023 10:20 AM CDT 10/08/2023 10:20 AM CDT Erick Hickman MD LAB - BLOOD ORDER [facility] [place] [address] [facility] 1st [place] [address] * Hepatic panel (10/08/2023 10:20 AM CDT) Protein Total 6.9 6.4 - 8.3 g/dL 10/08/2023 10:48 AM CDT [facility] Albumin 4.5 3.5 - 5.2 g/dL 10/08/2023 10:48 AM CDT [facility] Bilirubin Total 0.2 <=1.2 mg/dL 10/08/2023 10:48 AM CDT [facility] Alkaline Phosphatase 82 40 - 150 U/L 10/08/2023 10:48 AM CDT [facility] Comment:Reference intervals for this test were updated on 05/19/2023 to more accurately reflect our healthy population. There may be differences in the flagging of prior results with similar values performed with this method. Interpretation of those prior results can be made in the context of the updated reference intervals. AST 15 0 - 45 U/L 10/08/2023 10:48 AM CDT [facility] Comment:Reference intervals for this test were updated on 12/15/2022 to more accurately reflect our healthy population. There may be differences in the flagging of prior results with similar values performed with this method. Interpretation of those prior results can be made in the context of the updated reference intervals. ALT 17 0 - 50 U/L 10/08/2023 10:48 AM CDT [facility] Comment:Reference intervals for this test were updated on 12/15/2022 to more accurately reflect our healthy population. There may be differences in the flagging of prior results with similar values performed with this method. Interpretation of those prior results can be made in the context of the updated reference intervals. Bilirubin Direct <0.20 0.00 - 0.30 mg/dL 10/08/2023 10:48 AM CDT [facility] Blood STRUCTURE OF RIGHT UPPER LIMB / Unknown Venipuncture / Unknown 10/08/2023 10:20 AM CDT 10/08/2023 10:20 AM CDT Erick Hickman MD LAB - BLOOD ORDER [facility] [place] [address] [place] [address] 1st [place] [address] documented in this encounter Visit Diagnoses Diagnosis MS (multiple sclerosis) (H) Multiple sclerosis documented in this encounter Care Teams Guest Experience Captain Relationship Specialty Start Date End Date Jacobo Campos MD [facility] [address] [place] [address] PCP - General Internal Medicine 09/08/13 Erick Hickman MD [address] [place] [address] [id number], [place] [id number] Assigned Neuroscience Provider 04/27/20 Boy Rousseau MD [address] [place], [place] [address], [place] [address] Assigned Surgical Provider 04/27/20 documented as of this encounter
--- OUTSIDE RECORDS SUMMARY | 2023-11-02 08:50 | XMS_ITS | Clinical Summary ---
Author Name Unknown Organization [place] Address [address] [place] [address] Care Team Providers Care Application Security Specialist Name Role Phone Jacobo Campos MD Primary Care Provider Erick Hickman MD Unavailable [phone] Boy Rousseau MD Unavailable [phone] Allergies Active Allergy Reactions Criticality Noted Date Comments Glatiramer Other (See Comments) High 03/26/2015 Skin and fever Medications Medication Sig Dispensed Refills Start Date End Date Status Multiple Vitamins-Calcium (ONE-A-DAY WOMENS FORMULA PO) Take by mouth daily Active Cholecalciferol (VITAMIN D) 2000 UNITS CAPS Take 2,000 Units by mouth Active Calcium Carbonate-Vitami n D (CALCIUM + D PO) Take by mouth daily Active Cyanocobalamin (VITAMIN B-12 PO) Take 1 tablet by mouth daily Active estradiol (VIVELLE-DOT) 0.1 MG/24HR BIW patch 08/11/2016 Active fluconazole (DIFLUCAN) 150 MG tablet Take 150 mg by mouth 02/18/2016 Active metroNIDAZOLE (METROGEL) 0.75 % vaginal gel 08/11/2016 Active CRANBERRY PO Take 1 tablet by mouth daily Active BIOTIN PO Take 1 tablet by mouth daily Active triamcinolone (ARISTOCORT HP) 0.5 % external cream 10/31/2019 Active Ascorbic Acid (VITAMIN C) 500 MG CAPS Active vitamin E 400 units TABS Take 400 Units by mouth daily Active acetaminophen (TYLENOL) 500 MG tablet Take 500-1,000 mg by mouth every 6 hours as needed for mild pain Active nortriptyline (PAMELOR) 25 MG capsuleIndicatio ns:Nonintractabl e headache, unspecified chronicity pattern, unspecified headache type Take two capsules at bedtime 180 capsule 3 09/25/2022 Active teriflunomide (AUBAGIO) 14 MG tabletIndication s:Multiple sclerosis (H) Take 1 tablet (14 mg) by mouth daily Only available through select specialty pharmacies 90 tablet 3 05/01/2023 Active tamsulosin (FLOMAX) 0.4 MG capsuleIndicatio ns:Neurogenic bladder Take 1 capsule (0.4 mg) by mouth daily 90 capsule 3 10/16/2023 Active ibuprofen (ADVIL/MOTRIN) 800 MG tablet 10/31/2019 4 Discontinued( Therapy completed (No AVS)) HYDROcodone-acet aminophen (NORCO) 5-325 MG tablet 01/27/2020 4 Discontinued( Therapy completed (No AVS)) tamsulosin (FLOMAX) 0.4 MG capsuleIndicatio ns:Neurogenic bladder Take 1 capsule (0.4 mg) by mouth daily 90 capsule 3 09/25/2022 4 Discontinued( Reorder (No AVS)) Active Problems Problem Noted Date Diagnosed Date Intracranial aneurysm 11/23/2019 Leukopenia 01/25/2015 Multiple sclerosis 09/15/2013 Encounters Date Type Department Care Team Description 10/16/2023 Refill [facility] [address] [phone] Erick Hickman MD Refill Request (Tamsulosin ) 10/14/2023 Telephone [facility] Neurology Clinic [address] [place] [address] Erick Hickman MD MRA Order ([place] called to request correction on MRA order ) 10/10/2023 MyC Medical Advice [facility] [address] [phone] Erick Hickman MD 10/08/2023 10:15 AM CDT Lab [facility] Lab [address] [place] [address] MS (multiple sclerosis) (H) 10/08/2023 9:30 AM CDT Office Visit [facility] Multiple Sclerosis [address] [phone] Erick Hickman MD MS (multiple sclerosis) (H) (Primary Dx); Nonruptured cerebral aneurysm; Urinary hesitancy; Nonintractable episodic headache, unspecified headache type 10/08/2023 Documentation Only [facility] Multiple Sclerosis [address] [address] Erick Hickman MD Orders ([facility] ) 10/08/2023 Travel 09/28/2023 Refill [facility] Multiple Sclerosis [address] [phone] Erick Hickman MD Refill Request (Tamsulosin 0.4mg ) 09/28/2023 Refill [facility] Multiple Sclerosis [address] [address] Erick Hickman MD Medication Refill from Last 3 Months Family History Medical [...] Sign Reading Time Taken Comments Blood Pressure 130/83 10/08/2023 9:22 AM CDT Pulse 96 10/08/2023 9:22 AM CDT Temperature 36.6 ??C (97.8 ??F) 05/25/2020 8 :33 AM PHOTO LAB SPECIALIST Respiratory Rate 16 05/25/2020 12:3 2 PM PHOTO LAB SPECIALIST Oxygen Saturation 100% 10/08/2023 9:2 2 AM CDT Inhaled Oxygen Concentration - - Weight 68.9 kg (151 lb 12.8 oz) 10/08/2023 9:22 AM CDT with out shoes Height 170.2 cm (5' 7) 08/16/2020 10:5 6 AM PHOTO LAB SPECIALIST Body Mass Index 23.78 08/16/2020 10:56 AM PHOTO LAB SPECIALIST Plan of Treatment Upcoming Encounters Date Type Department Care Team (Late st Contact Info) Description 05/26/2024 9:30 AM PHOTO LAB SPECIALIST Office Visit [facility]clerosis [facility] [address] [phone] Erick Hickman MD [address] [place] [address] - [id number] [address] Health Maintenance Due Date Last Done Comments ANNUAL REVIEW OF HM ORDERS 1972 CT COLONOGRAPHY 1972 FIT 1972 FLEX SIG 1972 MAMMO SCREENING 1972 URINE DRUG SCREEN [...] HIV SCREENING 09/21/1987 HEPATITIS C SCREENING 1990 HEPATITIS B IMMUNIZATION (1 of 3 - 19+ 3-dose series) 09/21/1991 ZOSTER IMMUNIZATION (1 of 2) 09/21/1991 PAP 1993 LIPID 2012 DTAP/TDAP/TD IMMUNIZATION (5 - Td or Tdap) 04/15/2021 04/15/2011, 01/15/1983, 01/12/1980, Additional history exists LUNG CANCER SCREENING 2022 INFLUENZA VACCINE (#1) 2023 05/04/2015, 2009 GLUCOSE 05/23/2023 05/23/2020, 052 , 11/23/2019 ADVANCE CARE PLANNING 11/23/2024 11/24/2019 PHQ-2 (once per calendar year) Completed 10/08/2023, 09/25/2022, 06/03/2022, Additional history exists HPV IMMUNIZATION Aged Out No longer e ligible based on patient's age to complete this topic MENINGITIS IMMUNIZATION Aged Out No l onger eligible based on patient's age to complete this topic RSV MONOCLONAL ANTIBODY Aged Out No l onger eligible based on patient's age to complete this topic Medical Devices Implanted Type Area Plaster Form Maker Device Identifier Shelf Expiration Date Model / Serial / Lot Embolic Substance/Dev ice Web Sl 4x3-11/23/2019 Implanted:Qty : 1 on 11/23/2019 by Boy Rousseau MD Embolic Substance/D evice Right: Carotid MICROVENTION 02/18/2020 [id number] / / [id number] Stent Neuroform [place] 3x21- 0 Implanted:Qty : 1 on 11/23/2019 by Boy Rousseau MD Stent Right: Carotid CHAYITO 11/17/2023 [id number] / / [id number] Procedures Procedure Name Priority Date/Time Associated Diagnosis Comments CBC WITH PLATELETS & DIFFERENTIAL Routine 10/08/2023 10:20 AM CDT MS (multiple sclerosis) (H) CBC WITH PLATELETS AND DIFFERENTIAL Routine 10/08/2023 10:20 AM CDT MS (multiple sclerosis) (H) HEPATIC FUNCTION PANEL Routine 10/08/2023 10:20 AM CDT MS (multiple sclerosis) (H) BASIC METABOLIC PANEL Routine 05/23/2020 8:48 AM PHOTO LAB SPECIALIST Intracranial aneurysm from Last 3 Months or Most Recently Relevant to Health Maintenance Results * CBC with platelets and differential (10/08/2023 10:20 AM CDT) WBC Count 4.6 4.0 - 11.0 10e3/uL 10/08/2023 10:24 AM CDT [facility] RBC Count 4.64 3.80 - 5.20 10e6/uL 10/08/2023 10:24 AM CDT [facility] Hemoglobin 13.3 11.7 - 15.7 g/dL 10/08/2023 10:24 AM CDT [facility] Hematocrit 40.6 35.0 - 47.0 % 10/08/2023 10:24 AM CDT [facility] MCV 88 78 - 100 fL 10/08/2023 10:24 AM CDT [facility] MCH 28.7 26.5 - 33.0 pg 10/08/2023 10:24 AM CDT [facility] MCHC 32.8 31.5 - 36.5 g/dL 10/08/2023 10:24 AM CDT [facility] RDW 14.6 10.0 - 15.0 % 10/08/2023 10:24 AM CDT [facility] Platelet Count 297 150 - 450 10e3/uL 10/08/2023 10:24 AM CDT [facility] % Neutrophils 55 % 10/08/2023 10:24 AM CDT [facility] % Lymphocytes 31 % 10/08/2023 10:24 AM CDT [facility] % Monocytes 12 % 10/08/2023 10:24 AM CDT [facility] % Eosinophils 1 % 10/08/2023 10:24 AM CDT [facility] % Basophils 1 % 10/08/2023 10:24 AM CDT [facility] % Immature Granulocytes 0 % 10/08/2023 10:24 AM CDT [facility] NRBCs per 100 WBC 0 <1 /100 024 10:24 AM CDT [facility] Absolute Neutrophils 2.5 1.6 - 8.3 10e3/uL 10/08/2023 10:24 AM CDT [facility] Absolute Lymphocytes 1.4 0.8 - 5.3 10e3/uL 10/08/2023 10:24 AM CDT [facility] Absolute Monocytes 0.5 0.0 - 1.3 10e3/uL 10/08/2023 10:24 AM CDT [facility] Absolute Eosinophils 0.0 0.0 - 0.7 10e3/uL 10/08/2023 10:24 AM CDT [facility] Absolute Basophils 0.0 0.0 - 0.2 10e3/uL 10/08/2023 10:24 AM CDT [facility] Absolute Immature Granulocytes 0.0 <=0.4 10e3/uL 10/08/2023 10:24 AM CDT [facility] Absolute NRBCs 0.0 10e3/uL 10/08/2023 10:24 AM CDT [facility] Blood STRUCTURE OF RIGHT UPPER LIMB / Unknown Venipuncture / Unknown 10/08/2023 10:20 AM CDT 10/08/2023 10:20 AM CDT Erick Hickman MD LAB - BLOOD ORDER ENZO [facility] - [address] 1[address] [place] [address] * Hepatic panel (10/08/2023 10:20 AM CDT) Pathologist [facility] Protein Total 6.9 6.4 - 8.3 g/dL 10/08/2023 10:48 AM CDT [facility] Albumin 4.5 3.5 - 5.2 g/dL 10/08/2023 10:48 AM CDT [facility] Bilirubin Total 0.2 <=1.2 mg/dL 10/08/2023 10:48 AM CDT [facility] Alkaline Phosphatase 82 40 - 150 U/L 10/08/2023 10:48 AM CDT [facility] Comment:Reference intervals for this test were updated on 05/19/2023 to more accurately reflect our healthy population. There may be differences in the flagging of prior results with similar values performed with this method. Interpretation of those prior results can be made in the context of the updated reference intervals. AST 15 0 - 45 U/L 10/08/2023 10:48 AM CDT [facility] Comment:Reference intervals for this test were updated on 12/15/2022 to more accurately reflect our healthy population. There may be differences in the flagging of prior results with similar values performed with this method. Interpretation of those prior results can be made in the context of the updated reference intervals. ALT 17 0 - 50 U/L 10/08/2023 10:48 AM CDT [facility] Comment:Reference intervals for [...] - 0.30 mg/dL 10/08/2023 10:48 AM CDT [facility] Blood STRUCTURE OF RIGHT UPPER LIMB / Unknown Venipuncture / Unknown 10/08/2023 10:20 AM CDT 10/08/2023 10:20 AM CDT Erick Hickman MD LAB - BLOOD ORDER ENZO Performing Organization Address City/State/[facility] Co de Phone Number [facility] [address] 1st [place] [address] * Basic metabolic panel FUTURE anytime (05/23/2020 8:48 AM PHOTO LAB SPECIALIST) Sodium 141 133 - 144 mmol/L 05/23/2020 1:58 PM [facility] Potassium 3.6 3.4 - 5.3 mmol/L 05/23/2020 1:58 PM [facility] Chloride 105 94 - 109 mmol/L 05/23/2020 1:58 PM [facility] Carbon Dioxide 27 20 - 32 mmol/L 05/23/2020 2:26 PM [facility] Anion Gap 9 3 - 14 mmol/L 05/23/2020 2:26 PM [facility] Glucose 87 70 - 99 mg/dL 05/23/2020 2:26 PM [facility] Urea Nitrogen 14 7 - 30 mg/dL 05/23/2020 2:26 PM [facility] Creatinine 0.73 0.52 - 1.04 mg/dL 05/23/2020 2:26 PM PHOTO LAB SPECIALIST [facility] GFR Estimate >90 >60 mL/min/{1 .73_m2} 05/23/2020 2:26 PM [facility] Comment: Non GFR Calc Starting 06/22/2018, serum creatinine based estimated GFR (eGFR) will be calculated using the Chronic Kidney Disease Epidemiology Collaboration (CKD-EPI) equation. GFR Estimate If Black >90 >60 mL/min/{1 .73_m2} 05/23/2020 2:26 PM PHOTO LAB SPECIALIST [facility] Comment: GFR Calc Starting 06/22/2018, serum creatinine based estimated GFR (eGFR) will be calculated using the Chronic Kidney Disease Epidemiology Collaboration (CKD-EPI) equation. Calcium 9.5 8.5 - 10.1 mg/dL 05/23/2020 2:26 PM PHOTO LAB SPECIALIST [facility] Blood specimen (specimen) 05/23/2020 8:48 AM PHOTO LAB SPECIALIST 05/23/2020 8:53 AM PHOTO LAB SPECIALIST Lin Daily MD LAB - BLOOD ORDERABL ES [facility] [address] [place], [place] [address] [phone] [facility] [address] [address] from Last 3 Months or Most Recently Relevant to Health Maintenance Care Teams Application Security Specialist Relationship Specialty Start Date End Date Reister, Centeno Wade, MD [facility] [address] [place] [address] PCP - General Internal Medicine 09/08/13 Erick Hickman MD [address] [place] [address] [id number], [place] [address] Assigned Neuroscience Provider 04/27/20 Boy Rousseau MD [address] [place], [place] [address], [place] [id number] Assigned Surgical Provider 04/27/20
--- OUTSIDE RECORDS SUMMARY | 2023-11-02 08:50 | XMS_ITS | Encounter Summary ---
Author Name Unknown Organization [place] Address [address] [place] [address] Care Team Providers Care Restaurant Shift Supervisor Name Role Phone Jacobo Campos MD Primary Care Provider Erick Hickman MD Unavailable [phone] Boy Ruosseau MD Unavailable Reason for Visit * Reason Onset Date Comments Medication Compliance Issues 03/31/2023 Cov erage exception form Encounter Details Date Type Department Care Team (Late st Contact Info) Description 03/31/2023 Telephone [facility] Multiple Sclerosis Clinic [address] [phone] Erick Hickman MD [address] [place] [address] - [id number] [place] [address] Medication Compliance Issues (Coverage exception [...] Myesha Goodman - 03/31/2023 10:02 AM CDT [facility] Phone Message May a detailed message be left on voicemail: yes Reason for Call: Medication Question or concern regarding medication Prescription Clarification Name of Medication: teriflunomide (AUBAGIO) 14 MG tablet [[id number]] (Order [id number]) Prescribing Provider: Erick Hickman MD Pharmacy: NA What on the order needs clarification? Caller Stated the Pt would need a Coverage Exception letter in order to continue the process for the medication under the plan, the form can be filled out on X BODY, the pts coverage ends April 05. Action Taken: Message routed to: [facility] Neurology Travel Screening: Not Applicable documented in this encounter Plan of Treatment Upcoming Encounters Date Type Department Care Team (Late st Contact Info) Description 05/26/2024 9:30 AM CHEMISTRY INSTRUCTOR Office Visit [facility] Multiple Sclerosis Clinic [address] [phone] Erick Hickman MD [address] [place] [address] documented as of this encounter Visit Diagnoses Not on filedocumented in this encounter Care Teams Restaurant Shift Supervisor Relationship Specialty Start Date End Date Jacobo Campos MD [facility] [place] [address] [place] [address] PCP - General Internal Medicine 09/08/13 Erick Hickman MD [address] [place] [address] Assigned Neuroscience Provider 04/27/20 Boy Rousseau MD [address] [place], [place] [address], [place] [address] Assigned Surgical Provider 04/27/20 documented as of this encounter
--- OUTSIDE RECORDS SUMMARY | 2023-11-02 08:50 | XMS_ITS | Encounter Summary ---
Author Name Unknown Organization [place] Address [address] [place] [address]. [place] [address] Care Team Providers Care Concrete Pourer Name Role Phone Jacobo Campos MD Primary Care Provider Erick Hickman MD Unavailable Boy Rousseau MD Unavailable Reason for Visit * Reason Onset Date Comments MRA Order 10/14/2023 [facility] villeda d to request correction on MRA order Encounter Details Date Type Department Care Team (Late st Contact Info) Description 10/14/2023 [facility] Neurology Clinic [address] [place] [address] Erick Hickman MD [address] [place] [address] - [id number] [place] [address] MRA Order ([facility] called to request correction on MRA order ) Social History Tobacco Use Types Packs/Day [...] Telephone Encounter - Racquel Whitt RN - 10/14/2023 3:26 PM CDT Spoke with Denise at [facility]. Per their radiologist, only non- contrast MRA needed. Requesting new order for MRI w/o contrast. Routing request to Dr Hickman. Racquel Whitt RN * Telephone Encounter - Mellisa Gomez - 10/14/2023 2:[address] [facility] Phone Message May a detailed message be left on voicemail: yes Reason for Call: Denise from [facility] department called to request a correction on MRA order from , per Denise, protocol orders need only to say without contrast please re fax MRA order to: P# [phone] Action Taken: Message routed to: [facility] neurology Travel Screening: Not Applicable documented in this encounter Plan of Treatment Upcoming Encounters Date Type Department Care Team (Late st Contact Info) Description 05/26/2024 9:30 AM CERTIFIED ORTHOTIST Office Visit [facility] Multiple Sclerosis [address] [phone] Erick Hickman MD [address] [place] [address] - [id number] [place] [address] documented as of this encounter Visit Diagnoses Diagnosis Nonruptured cerebral aneurysm- Primary Cerebral aneurysm, nonruptured documented in this encounter Care Teams Concrete Pourer Relationship Specialty Start Date End Date Jacobo Campos MD [facility] [address] [place] [address] PCP - General Internal Medicine 09/08/13 Erick Hickman MD [address] [facility] [address] - [id number] [place] [address] Assigned Neuroscience Provider 04/27/20 Boy Rousseau MD [address] [facility] [id number] [place] [address] Assigned Surgical Provider 04/27/20 documented as of this encounter
--- OUTSIDE RECORDS SUMMARY | 2023-11-02 08:50 | XMS_ITS | Encounter Summary ---
Author Name Unknown Organization [place] Address [address] [place] [address] Care Team Providers Care Healthcare Account Manager Name Role Phone Jacobo Campos MD Primary Care Provider Erick Hickman MD Unavailable [phone] Boy Rousseau MD Unavailable Reason for Visit * Reason Onset Date Comments Appointment 06/04/2022 Encounter Details Date Type Department Care Team (Late st Contact Info) Description 06/04/2022 Telephone [facility] Neurology Clinic [address] [address] Boy Rousseau MD [address] [place] [address] [id number] [place] [address] Appointment Social History Tobacco Use [...] Visit with Dr. Rousseau . MRA PRIOR T OFFICER documented in this encounter Plan of Treatment Upcoming Encounters Date Type Department Care Team (Late st Contact Info) Description 05/26/2024 9:30 AM AUDIT OFFICER Office Visit [facility] Multiple Sclerosis [address] [phone] Erick Hickman MD [address] [place] [address] documented as of this encounter Visit Diagnoses Not on filedocumented in this encounter Care Teams Healthcare Account Manager Relationship Specialty Start Date End Date Jacobo Campos MD [facility] [address] [place] [address] PCP - General Internal Medicine 09/08/13 Erick Hickman MD [address] [place] [address] Assigned Neuroscience Provider 04/27/20 Boy Rousseau MD [address] [place], [place] [id number], [place] [address] Assigned Surgical Provider 04/27/20 documented as of this encounter
--- OUTSIDE RECORDS SUMMARY | 2023-11-02 08:50 | XMS_ITS | Encounter Summary ---
Author Name Unknown Organization [facility] Address [address] [place] [address] Care Team Providers Care Senior Back End Java Developer Name Role Phone Jacobo Campos MD Primary Care Provider Erick Hickman MD Unavailable [phone] Boy Rousseau MD Unavailable [phone] Reason for Referral * Diagnostic Imaging MRI (Routine) - Pending Review Specialty Diagnoses / Procedures Referred By [facility] Referred To Contact Radiology. Diagnoses Nonruptured cerebral aneurysm Procedures MRI Angiogram head w & w/o contrast Erick Hickman MD [address] [place] [address] Referral ID Status Reason Start Date Expiration Date V isits Requested Visits Authorized [id number] Pending Review 10/08/2023 10/07/2024 1 1 * Diagnostic Imaging MRI (Routine) - Pending Review Specialty Diagnoses / Procedures Referred By [facility] Referred To Contact Radiology. Diagnoses MS (multiple sclerosis) (H) Procedures MRI Cervical spine w & w/o contrast Erick Hickman MD [address] [place] [address] Referral ID Status Reason Start Date Expiration Date V isits Requested Visits Authorized [id number] Pending Review 10/08/2023 10/07/2024 1 1 * Diagnostic Imaging MRI (Routine) - Pending Review Specialty Diagnoses / Procedures Referred By Monica longoria Referred To Contact Radiology. Diagnoses MS (multiple sclerosis) (H) Procedures MR Brain w/o & w Contrast Erick Hickman MD [address] [place] [address] Referral ID Status Reason Start Date Expiration Date V isits Requested Visits Authorized [id number] Pending Review 10/08/2023 10/07/2024 1 1 Reason for Visit * Reason Comments MS RECHECK MS follow up Encounter Details Date Type Department Care Team (Late st Contact Info) Description 10/08/2023 9:30 AM CDT Office Visit [facility] [address] [address] Erick Hickman MD [address] [place] [phone] MS (multiple sclerosis) (H) (Primary Dx); Nonruptured cerebral aneurysm; Urinary hesitancy; Nonintractable episodic headache, unspecified headache type Social History Tobacco Use Types Packs/Day Years [...] on file documented as of this encounter Last Filed Vital Signs Vital Sign Reading Time Taken Comments Blood Pressure 130/83 10/08/2023 9:22 AM CDT Pulse 96 10/08/2023 9:22 AM CDT Temperature - - Respiratory Rate - - Oxygen Saturation 100% 10/08/2023 9:2 2 AM CDT Inhaled Oxygen Concentration - - Weight 68.9 kg (151 lb 12.8 oz) 10/08/2023 9:22 AM CDT with out shoes Height - - Body Mass Index 23.78 08/16/2020 10:56 AM DESK PENS ASSEMBLER documented in this encounter Patient Instructions * Patient Instructions* Erick Hickman MD - 10/08/2023 9:30 AM CDT Continue teriflunomide 2. Continue tamsulosin for bladder symptoms and nortriptyline for headache 3. Blood tests today 4. We will send orders for MRI and MRA studies to [facility] to be done in about six months 5. Return to this clinic in 6 months after above studies 6. Please make a follow up appointment with Dr. Rousseau in neurosurgery this fall after the MRA documented in this encounter Progress Notes * Erick Hickman MD - 10/08/2023 9:30 AM CDT Referral source: Established patient Chief complaint: Multiple sclerosis History of the Present Illness: Ms. Eliz Roth is a 53 year old right- handed woman who presents to the Multiple Sclerosis Clinic today for a scheduled follow up visit regarding her diagnosis of multiple sclerosis. The patient's history is as per my previous notes. She initially developed symptoms of demyelinating disease in 2010 when she had an episode of left optic neuritis. She was diagnosed with multiple sclerosis on the basis of MRI imaging and placed on disease-modifying therapy with an interferon beta formulation. However, she apparently did not tolerate this due to leukopenia. She was next placed onglatiramer acetate, but could not tolerate the injection site reactions, and most recently has beenon teriflunomide since late 2014. 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 Boy Rousseau of Neurosurgery, with subsequent surveillance imaging having demonstrated no additional aneurysm formation. Today, she denies any new episodic changes in vision, balance, strength or sensation suggestive of relapse of multiple sclerosis since her last visit to this clinic one year ago. She did, unfortunately, injure her left lower back and hip in an incident at work in June. 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 She is currently undergoing physical therapy at [facility] andis still on light duty, but hopes to return to full activity over the next few weeks. Symptomatically, she remains on tamsulosin 0.4 mg for difficulty with bladder emptying, which continues to be helpful. At her last visit, I also increased her dose of nortriptyline from 25 to 50 mg at bedtime for increasing headaches and cautioned her to avoid frequent use of neni-nem-jbuhpck analgesics. Today, she reports that headaches are much better, and continues to take nortriptyline 50 mg at bedtime. PHYSICAL EXAMINATION: VITAL SIGNS: Blood pressure 130/83; pulse 96; oxygen saturation 100%; weight 68.9 kg. GENERAL: Well-nourished woman who presents to the examination accompanied by her , awake andalert and in no acute distress. NEUROLOGIC EXAMINATION: CRANIAL NERVES: Visual phillips are full to confrontation. Extraocular movements are intact with no internuclear ophthalmoplegia. Facial strength is normal. Palate elevation and tongue protrusion are normal. POWER: Strength is within normal limits in proximal and distal muscles in the upper and lower limbsthroughout. REFLEXES: Reflexes are symmetric and within normal limits in the arms and legs. MOTOR/CEREBELLAR: There is no appendicular ataxia on eydlha-sp-qium testing. Rapid alternating movements are within normal limits in the hands and fingers. There is no pronator drift in the arms. GAIT: The patient is able to ambulate on a flat, level surface with no gross loss of postural stability, and able to walk on heels and toes. Tandem gait was mildly impaired for age. Assessment/plan: 1. Multiple sclerosis The patient remains clinically stable as regards any evidence of active inflammatory demyelination on current disease modifying therapy with teriflunomide, which she will continue. Today, I will obtain routine laboratory studies for monitoring of this medication to include complete blood counts with differential and hepatic panel. I will see her back in 6 months for a review, with MRI scans of the brain and cervical spine to be performed prior to that visit in order to monitor the radiologic stability of her condition. 2. Anterior communicating artery aneurysm, status post successful WEB and stent assisted embolization Per Dr. Rousseau, repeat MRA imaging of the cerebral vasculature is due this fall. She will have this done at the same time as the above MRI imaging and then see Dr. Rousseau for a review. 3. Urinary hesitancy She is benefiting from current treatment with tamsulosin, which will be continued. 4. Headaches Likewise, we will continue nortriptyline 50 mg at bedtime. documented in this encounter Nursing Notes * Reinaldo Pavon - 10/08/2023 9:30 AM CDT Chief Complaint Patient presents with MS RECHECK MS follow up Vitals were taken and medications were reconciled. Reinaldo Pavon EMT 9:24 AM documented in this encounter Plan of Treatment Upcoming Encounters Date Type Department Care Team (Late st Contact Info) Description 05/26/2024 9:30 AM DESK PENS ASSEMBLER Office Visit [facility] [address] [address] Erick Hickman MD [address] [place] [address] [id number] [address] Scheduled Orders Name Type Priority Associated Diagnoses Orde r Schedule MR Brain w/o & w Contrast Imaging Routine MS (multiple sclerosis) (H) Expected: 04/08/2024 (Approximate), Expires: 10/07/2024 MRI Cervical spine w & w/o contrast Imaging Routine MS (multiple sclerosis) (H) Expected: 04/08/2024 (Approximate), Expires: 10/07/2024 MRI Angiogram head w & w/o contrast Imaging Routine Nonruptured cerebral aneurysm Expected: 04/08/2024 (Approximate), Expires: 10/07/2024 documented as of this encounter Results * Hepatic panel (10/08/2023 10:20 AM CDT) [facility] [address] Protein Total 6.9 6.4 - 8.3 g/dL 10/08/2023 10:48 AM CDT [facility] Albumin 4.5 3.5 - 5.2 g/dL 10/08/2023 10:48 AM CDT [facility] Bilirubin Total 0.2 <=1.2 mg/dL 10/08/2023 10:48 AM CDT [facility] Alkaline Phosphatase 82 40 - 150 U/L 10/08/2023 10:48 AM CDT [facility] Comment:Reference intervals for this test were updated on 05/19/2023 to more accurately reflect our healthy population. There may be differences in the flagging of prior results with similar values performed with this method. Interpretation of those prior results can be made in the context of the updated reference intervals. AST 15 0 - 45 U/L 10/08/2023 10:48 AM CDT [facility] Comment:Reference intervals for this test were updated on 12/15/2022 to more accurately reflect our healthy population. There may be differences in the flagging of prior results with similar values performed with this method. Interpretation of those prior results can be made in the context of the updated reference intervals. ALT 17 0 - 50 U/L 10/08/2023 10:48 AM CDT [facility] Comment:Reference intervals for [...] - 0.30 mg/dL 10/08/2023 10:48 AM CDT [facility] Blood STRUCTURE OF RIGHT UPPER LIMB / Unknown Venipuncture / Unknown 10/08/2023 10:20 AM CDT 10/08/2023 10:20 AM CDT Erick Hickman MD LAB - BLOOD ORDER [facility] [address] [place] [address] 1st [place] [address] documented in this encounter Visit Diagnoses Diagnosis MS (multiple sclerosis) (H)- Primary Multiple sclerosis Nonruptured cerebral aneurysm Cerebral aneurysm, nonruptured Urinary hesitancy Nonintractable episodic headache, unspecified headache type documented in this encounter Care Teams Senior Back End Java Developer Relationship Specialty Start Date End Date Jacobo Campos MD [address] [address] PCP - General Internal Medicine 09/08/13 Erick Hickman MD 909 [facility] - [id number] [address] Assigned Neuroscience Provider 04/27/20 Boy Rousseau MD 909 [facility], [place] [address] Assigned Surgical Provider 04/27/20 documented as of this encounter
--- OUTSIDE RECORDS SUMMARY | 2023-11-02 08:50 | XMS_ITS | Encounter Summary ---
Author Name Unknown Organization [facility] Address [address] [place] [address] Care Team Providers Care Belt Operator Name Role Phone Jacobo Campos MD Primary Care Provider Erick Hickman MD Unavailable Boy Rousseau MD Unavailable Reason for Visit * Reason Onset Date Comments Refill Request 09/28/2023 Tamsulosin 0.4mg Encounter Details Date Type Department Care Team (Late st Contact Info) Description 09/28/2023 Refill [facility] [address] [phone] Erick Hickman MD [address] [place] [address] - [id number] [place] [address] Refill Request (Tamsulosin 0.4mg ) Social History Tobacco Use Types Packs/Day [...] Telephone Encounter - Racquel Whitt RN - 09/29/2023 11:01 AM CDT Refill request declined as pt is overdue for appt. I have asked our clinical quality manager to contact pt to offer follow-up. Racquel Whitt RN documented in this encounter Plan of Treatment Upcoming Encounters Date Type Department Care Team (Late st Contact Info) Description 05/26/2024 9:30 AM HOSPITAL HOUSEKEEPER Office Visit [facility] Multiple Sclerosis [address] [address] Erick Hickman MD [address] [place] [address] documented as of this encounter Visit Diagnoses Diagnosis Neurogenic bladder Neurogenic bladder, NOS documented in this encounter Care Teams Belt Operator Relationship Specialty Start Date End Date Jacobo Campos MD [facility] [address] [place] [address] PCP - General Internal Medicine 09/08/13 Erick Hickman MD [address] [place] [address] Assigned Neuroscience Provider 04/27/20 Boy Rousseau MD [address] [place], [place] [address] [address] Assigned Surgical Provider 04/27/20 documented as of this encounter
--- OUTSIDE RECORDS SUMMARY | 2023-11-02 08:50 | XMS_ITS | Encounter Summary ---
Author Name Unknown Organization [facility] Address [address] [place] [address] Care Team Providers Care Customer Experience Retail Clerk Name Role Phone Jacobo Campos MD Primary Care Provider Erick Hickman MD Unavailable [phone] Boy Rousseau MD Unavailable [phone] Encounter Details Date Type Department Care Team (Late Contact Info) Description 04/30/2023 MyC Medical Advice [facility] [address] [place] [phone] Tamara Mccullough Social History Tobacco Use [...] (Late Contact Info) Description 05/26/2024 9:30 AM BLOW DOWN HELPER Office Visit [facility] [address] [phone] Erick Hickman MD [address] [place] [address] - [id number] [place], [place] [address] documented as of this encounter Visit Diagnoses Not on filedocumented in this encounter Care Teams Customer Experience Retail Clerk Relationship Specialty Start Date End Date Jacobo Campos MD [facility] [address] [place] [address] PCP - General Internal Medicine 09/08/13 Erick Hickman MD 9 [facility] [id number] [address] Assigned Neuroscience Provider 04/27/20 Boy Rousseau MD 909 [facility] [address] Assigned Surgical Provider 04/27/20 documented as of this encounter
--- OUTSIDE RECORDS SUMMARY | 2023-11-02 08:50 | XMS_ITS | Encounter Summary ---
Author Name Unknown Organization [facility] Address [address] [place] [address] Care Team Providers Care Cosmetic Counselor Name Role Phone Jacobo Campos MD Primary Care Provider Guerita Holbrook RN Unavailable Erick Hickman MD Unavailable [phone] Boy Rousseau MD Unavailable [phone] Reason for Visit * Reason Onset Date Comments Call Back 11/28/2020 medical card for flight Encounter Details Date Type Department Care Team (Late st Contact Info) Description 11/28/2020 Telephone [facility] [address] [address] Boy Rousseau MD [address] [place] [address] [id number] [address] Call Back (medical card for [...] SUBSTANCE/DEVICE WEB SL 4X3 STENT NEUROFORM ATLAS [id number] 11/23/2019 documented in this encounter Miscellaneous Notes [...] Joselyn Everett - 11/28/2020 11:36 AM CDT [facility] Call Center Phone Message May a [...] st Contact Info) Description 05/26/2024 9:30 AM SILVERWARE ASSEMBLER Office Visit [facility] [address] [address] Erick Hickman MD [address] [place] [address] - [id number] [place], [place] [address] documented as of this encounter Visit Diagnoses Not on filedocumented in this encounter Care Teams Cosmetic Counselor Relationship Specialty Start Date End Date Jacobo Campos MD [facility] [address] [place] [address] PCP - General Internal Medicine 09/08/13 Guerita Holbrook, RN Specialty Building Energy Retrofit Technician Neurology 06/22/15 02/28/21 Erick Hickman MD 9 [facility] - [id number] [address] Assigned Neuroscience Provider 04/27/20 Boy Rousseau MD [facility], [place] [address] Assigned Surgical Provider 04/27/20 documented as of this encounter
--- OUTSIDE RECORDS SUMMARY | 2023-11-02 08:50 | XMS_ITS | Encounter Summary ---
Author Name Unknown Organization [facility] Address [address] [place] [address] Care Team Providers Care Sheet Hanger Name Role Phone Jacobo Campos MD Primary Care Provider Guerita Holbrook RN Unavailable Erick Hickman MD Unavailable [phone] Boy Rousseau MD Unavailable [phone] Reason for Visit * Reason Onset Date Comments Call Back 10/17/2020 Encounter Details Date Type Department Care Team (Late st Contact Info) Description 10/17/2020 Telephone [facility] [address] [address] Erick Hickman MD [address] [place] [address] - [id number] [place] [address] Call Back Social History Tobacco [...] Miscellaneous Notes * Telephone Encounter - Michelle Agiurre RN - 10/18/2020 1:38 PM CDT Spoke with Eliz about her upcoming MRIs. Advised her that she would be contacted IF Dr. Mena had concerns. Confirmed with Dr. Hickman that Eliz is fine to proceed with MRIs of her back and neck. Michelle Aguirre, RN * Telephone Encounter - Olga Vargas - 10/17/2020 3:53 PM CDT [facility] Call Center Phone Message May a detailed message be left on voicemail: yes Reason for Call: Other: Patient calling looking to speak with care team of Dr. Hickman - statesat her provider in [place] is needing clarification/ confirmation if she is [...] st Contact Info) Description 05/26/2024 9:30 AM MACHINIST JOB SETTER Office Visit [facility] [address] [address] Erick Hickman MD [address] [place] [address] - [id number] [place] [address] documented as of this encounter Visit Diagnoses Not on filedocumented in this encounter Care Teams Sheet Hanger Relationship Specialty Start Date End Date Jacobo Campos MD [facility] [address] [place] [address] PCP - General Internal Medicine 09/08/13 Guerita Holbrook, DIVINE Specialty Flexographic Press Operator Neurology 06/22/15 02/28/21 Erick Hickman MD 9 [facility]2121[place], [place] [address] Assigned Neuroscience Provider 04/27/20 Boy Rousseau MD [address] [place], [place] [address], [place] [address] Assigned Surgical Provider 04/27/20 documented as of this encounter
--- OUTSIDE RECORDS SUMMARY | 2023-11-02 08:50 | XMS_ITS | Encounter Summary ---
Author Name Unknown Organization [facility] Address [address] [place] [address] Care Team Providers Care Power Shovel Engineer Name Role Phone Jacobo Campos MD Primary Care Provider Erick Hickman MD Unavailable [phone] Boy Rousseau MD Unavailable Reason for Visit * Reason Comments Medication Refill Encounter Details Date Type Department Care Team (Late st Contact Info) Description [facility] [address] [address] Erick Hickman MD [address] [place] [address] - [id number] [address] Medication Refill Social History Tobacco Use Types Packs/Day Years [...] Encounter - Racquel Whitt RN - 09/29/2023 11:00 AM CDT Refill request declined as pt is overdue for appt. I have asked clinical transplant coordinator to contact pt tooffer follow-up. Racquel Whitt, RN documented in this encounter Plan of Treatment Upcoming Encounters Date Type Department Care Team (Late st Contact Info) Description 05/26/2024 9:30 AM SALSA DANCE INSTRUCTOR Office Visit [facility] Multiple Sclerosis [address] [phone] Erick Hickman MD [address] [place] [address] documented as of this encounter Visit Diagnoses Diagnosis Nonintractable headache, unspecified chronicity pattern, unspecified headache type documented in this encounter Care Teams Power Shovel Engineer Relationship Specialty Start Date End Date Jacobo Campos MD [address] [address] PCP - General Internal Medicine 09/08/13 Erick Hickman MD [address] [place] [address] Assigned Neuroscience Provider 04/27/20 Boy Rousseau MD [address] [place], [place] [address] [address] Assigned Surgical Provider 04/27/20 documented as of this encounter
--- OUTSIDE RECORDS SUMMARY | 2023-11-02 08:50 | XMS_ITS | Encounter Summary ---
Author Name Unknown Organization [facility] Address [address] [place] [address] Care Team Providers Care Production Sound Mixer Name Role Phone Jacobo Campos MD Primary Care Provider Erick Hickman MD Unavailable Boy Rousseau MD Unavailable Reason for Visit * Reason Onset Date Comments Medication Question 04/10/2023 MS oral medi cation Encounter Details Date Type Department Care Team (Late st Contact Info) Description 04/10/2023 Telephone [facility] Sclerosis [facility] [address] [address] Erick Hickman MD [address] [place] [address] - [id number] [place] [address] Medication Question (MS oral medication [...] Violet Cai - 04/10/2023 9:39 AM CDT [facility] Call Center Phone Message May a [...] discuss. Please call patient and advise at [phone]. Action Taken: Message routed to: [facility] MS Neurology Travel Screening: Not Applicable documented in this encounter Plan of Treatment Upcoming Encounters Date Type Department Care Team (Late st Contact Info) Description 05/26/2024 9:30 AM EMPLOYEE RELATIONS ASSISTANT Office Visit [facility] [address] [phone] Erick Hickman MD [address] [place] [address] documented as of this encounter Visit Diagnoses Not on filedocumented in this encounter Care Teams Production Sound Mixer Relationship Specialty Start Date End Date Jacobo Campos MD [facility] [address] [place] [address] PCP - General Internal Medicine 09/08/13 Erick Hickman MD [address] [place] [address] Assigned Neuroscience Provider 04/27/20 Boy Rousseau MD [address] [place], [place] [address], [place] [address] Assigned Surgical Provider 04/27/20 documented as of this encounter
--- OUTSIDE RECORDS SUMMARY | 2023-11-02 08:50 | XMS_ITS | Encounter Summary ---
Author Name Unknown Organization [facility] Address [address] [place] [address] Care Team Providers Care Air Sealing Technician Name Role Phone Jacobo Campos MD Primary Care Provider Erick Hickman MD Unavailable [phone] Boy Rousseau MD Unavailable Reason for Visit * Reason Onset Date Comments Prior Auth - Medication 03/09/2023 Aubagio (brand) 14MG Tablets (APPEAL DENIED) Encounter Details Date Type Department Care Team (Late st Contact Info) Description 03/09/2023 [facility] Sclerosis Clinic [address] [address] Erick Hickman MD [address] [place] [address] - [id number] [place] [address] Prior Auth - Medication (Aubagio [...] were not included. Aubagio appeal denial letter: EMS QA ANALYST * Telephone Encounter - Tamara Mccullough - 05/01/2023 10:43 AM CDT MEDICATION APPEAL DENIED Medication: AUBAGIO 14 MG PO TABS Insurance Company: [employer] Denial Date: 04/29/2023 Denial Rational: Must try/fail [...] faxed as well. Thank you, Tamara Mccullough [facility] Liaison - Cardiology Neurology [place] [id number] [email or web address] * Telephone Encounter - Tamara Mccullough - 04/23/2023 2:00 PM CDT Confirmed that the appeal was resent 04/16, but was closed because they thought it was a duplicate.I spoke with Gege in [facility] and she provided another fax number to resend the appeal request. [phone] also sent to [phone] Thank you, Tamara Mccullough [facility] Liaison - Cardiology Neurology [address] [address] * Telephone Encounter - Tamara Mccullough - 04/16/2023 12:05 PM CDT Resubmitted appeal with update date, denial letter from 04/08, and OV from 09/2022. Thank you, Tamara Mccullough [facility] Liaison - Cardiology Neurology Multiple Sclerosis [address] [address] * Telephone Encounter - Tamara Mccullough - 04/16/2023 10:50 AM CDT Spoke with [facility] Appeals and the guest services representative stated that since the appeal letter [...] the PA submission). Thank you, Tamara Mccullough [facility] Liaison - Cardiology Neurology Multiple Sclerosis [address] [address] [email or web address] * Telephone Encounter - Tamara Mccullough - 04/08/2023 12:43 PM CDT Medication Appeal Initiation Medication: AUBAGIO 14 MG PO TABS Appeal Start Date: 04/08/2023 Insurance Company: [employer] Insurance Insurance Comments: Faxed and email appeal letter to [facility] [place] Thank you, Tamara Mccullough [facility] Liaison - Cardiology Neurology Multiple Sclerosis [address] [address] [email or web address] * Telephone Encounter - CelsoTamara mccoy - 04/08/2023 12:32 PM CDT Images from the original note were not included. PRIOR AUTHORIZATION DENIED Medication: AUBAGIO 14 MG PO TABS Insurance Company: [facility] - Denial Date: 04/06/2023 Denial Rational: Must try/fail 3 alternative products: Mavenclad, Avonex, Gilenya - Must fail one additional drug since patient has already tried REbif and Glatiramer Appeal Information: Patient Notified: Yes * Telephone Encounter - Celsonadine Tamara Iris - 04/06/2023 11:03 AM CDT Images from the original note were not included. PA Initiation Medication: AUBAGIO 14 MG PO TABS Insurance Company: [facility] - Pharmacy Filling the Rx: [facility] - [place], [place] - [address] Filling Pharmacy Phone: Filling Pharmacy Fax: Start Date: 04/06/2023 Thank you, Tamara Mccullough [facility] Liaison - Cardiology Neurology Multiple Sclerosis [address] [address] [email or web address] * Telephone Encounter - Erick Hickman MD [...] are: 1) To source this through the [facility] (cost as noted) 2) Switch to leflunomide (generic, not specifically approved for MS and may not be covered by insurance but should have very similar effects as Aubagio--it is converted in the body to the active ingredient in Aubagio). Insurance may not cover for this indication, would be about $25/month through [employer] with a [employer] coupon. Other alternatives would include switching to a different medication or a trial off of disease modifying therapy. If she wants to discuss the latter two options she should make an appointment to discuss further. documented in this encounter Plan of Treatment Upcoming Encounters Date Type Department Care Team (Late st Contact Info) Description 05/26/2024 9:30 AM SYSTEMS QA ANALYST Office Visit [facility] Multiple Sclerosis Clinic [address] [address] Erick Hickman MD [address] [place] [address] - [id number] [place] [address] documented as of this encounter Visit Diagnoses Not on filedocumented in this encounter Care Teams Air Sealing Technician Relationship Specialty Start Date End Date Jacobo Campos MD [facility] [address] [place] [address] PCP - General Internal Medicine 09/08/13 Erick Hickman MD [address] [facility] - [id number] [place] [address] Assigned Neuroscience Provider 04/27/20 Boy Rousseau MD [address] [place], [place] [id number], [place] [address] Assigned Surgical Provider 04/27/20 documented as of this encounter
--- OUTSIDE RECORDS SUMMARY | 2023-11-02 08:50 | XMS_ITS | Encounter Summary ---
Author Name Unknown Organization [facility] Address [address] [place] [address] Care Team Providers Care Yarn Weight And Strength Tester Name Role Phone Jacobo Campos MD Primary Care Provider Erick Hickman MD Unavailable [phone] Boy Rousseau MD Unavailable [phone] Encounter Details Date Type Department Care Team (Late Contact Info) Description 10/10/2023 MyC Medical Advice [facility] Multiple Sclerosis [address] [address] Erick Hickman MD [address] [place] [address] [id number] [place] [address] Social History Tobacco Use Types [...] (Late Contact Info) Description 05/26/2024 9:30 AM OCULAR CARE TECHNICIAN Office Visit [facility] Multiple Sclerosis [address] [address] Erick Hickman MD [address] [place], [place] [address], [place] [address] documented as of this encounter Visit Diagnoses Not on filedocumented in this encounter Care Teams Yarn Weight And Strength Tester Relationship Specialty Start Date End Date Jacobo Campos MD [facility] [address] [place] [address] PCP - General Internal Medicine 09/08/13 Erick Hickman MD [address] [place] [address] Assigned Neuroscience Provider 04/27/20 Boy Rousseau MD [address] [place], [place] [id number] [address] Assigned Surgical Provider 04/27/20 documented as of this encounter
--- OUTSIDE RECORDS SUMMARY | 2023-11-02 08:50 | XMS_ITS | Encounter Summary ---
Author Name Unknown Organization [facility] Address [address] [place] [address] Care Team Providers Care Breakdown Person Name Role Phone Jacobo Campos MD Primary Care Provider Erick Hickman MD Unavailable [phone] Boy Rousseau MD Unavailable [phone] Encounter Details Date Type Department Care Team (Latest Contact Info) Description 10/08/2023 Travel Social History Tobacco Use Types Packs/Day [...] st Contact Info) Description 05/26/2024 9:30 AM LABORATORY CHIEF Office Visit [facility] Multiple Sclerosis Clinic [address] [address] Erick Hickman MD [address] [place] [address] - [id number] [place], [place] 9[address] documented as of this encounter Visit Diagnoses Not on filedocumented in this encounter Care Teams Breakdown Person Relationship Specialty Start Date End Date Jacobo Campos MD [facility] [address] [place] [address] PCP - General Internal Medicine 09/08/13 Erick Hickman MD [address] [place] [address] - [id number], [place] [address] Assigned Neuroscience Provider 04/27/20 Boy Rousseau MD [address] [place], [place] [id number], [place] [address] Assigned Surgical Provider 04/27/20 documented as of this encounter
--- OUTSIDE RECORDS SUMMARY | 2023-11-02 08:50 | XMS_ITS | Referral Summary ---
Author Name Unknown Organization [facility] Address [address] [place] [address] Care Team Providers Care Precinct Captain Name Role Phone Jacobo Campos MD Primary Care Provider Erick Hickman MD Unavailable Boy Rousseau MD Unavailable [phone] Encounters Date Type Department Care Team Description 10/16/2023 Refill [facility] [address] [address] Erick Hickman MD Refill Request (Tamsulosin ) 10/14/2023 Telephone [facility] [address] [place] [address] Erick Hickman MD MRA Order ([facility] called to request correction on MRA order ) 10/10/2023 MyC Medical Advice [facility] [address] [phone] Erick Hickman MD 10/08/2023 Documentation Only [facility] [address] [phone] Erick Hickman MD Orders ([facility] ) 10/08/2023 10:15 AM CDT Lab [facility] [address] [place] [address] MS (multiple sclerosis) (H) 10/08/2023 Travel 10/08/2023 9:30 AM CDT Office Visit [facility] Multiple Sclerosis [address] [address] Erick Hickman MD MS (multiple sclerosis) (H) (Primary Dx); Nonruptured cerebral aneurysm; Urinary hesitancy; Nonintractable episodic headache, unspecified headache type 09/28/2023 Refill [facility] Multiple Sclerosis [address] [address] Erick Hickman MD Refill Request (Tamsulosin 0.4mg ) 09/28/2023 Refill [facility] Multiple Sclerosis [address] [address] Ercik Hickman MD Medication Refill from Last 3 Months Allergies Active Allergy [...] ??C (97.8 ??F) 05/25/2020 8 :33 AM BUILDINGS AND GROUNDS SUPERINTENDENT Respiratory Rate 16 05/25/2020 12:3 2 PM BUILDINGS AND GROUNDS SUPERINTENDENT Oxygen Saturation 100% 10/08/2023 9:2 2 AM CDT Inhaled Oxygen Concentration - - Weight 68.9 kg (151 lb 12.8 oz) 10/08/2023 9:22 AM CDT with out shoes Height 170.2 cm (5' 7) 08/16/2020 10:5 6 AM BUILDINGS AND GROUNDS SUPERINTENDENT Body Mass Index 23.78 08/16/2020 10:56 AM BUILDINGS AND GROUNDS SUPERINTENDENT Plan of Treatment Upcoming Encounters Date Type Department Care Team (Late st Contact Info) Description 05/26/2024 9:30 AM BUILDINGS AND GROUNDS SUPERINTENDENT Office Visit [facility] Multiple Sclerosis [address] [address] Erick Hickman MD [address] [place] [address] - [id number] [place] [address] Medical Devices Implanted Type Area Hydroelectric Plant Electrical Engineer Device Identifier Shelf Expiration Date Model / Serial / Lot Embolic Substance/Dev ice Web Sl 4x3-11/23/2019 Implanted:Qty : 1 on 11/23/2019 by Boy Rousseau MD [employer] Substance/D evice Right: Carotid MICROVENTION 02/18/2020 [id number] / / [id number] Stent Neuroform [place] 3x21- 0 Implanted:Qty : 1 on 11/23/2019 by Boy Rousseau MD Stent Right: Carotid CHAYITO 11/17/2023 [id number] / / [id number] Procedures Procedure Name Priority Date/Time Associated Diagnosis Comments CBC WITH PLATELETS & DIFFERENTIAL Routine 10/08/2023 10:20 AM CDT MS (multiple sclerosis) (H) CBC WITH PLATELETS AND DIFFERENTIAL Routine 10/08/2023 10:20 AM CDT MS (multiple sclerosis) (H) HEPATIC FUNCTION PANEL Routine 10/08/2023 10:20 AM CDT MS (multiple sclerosis) (H) BASIC METABOLIC PANEL Routine 05/23/2020 8:48 AM BUILDINGS AND GROUNDS SUPERINTENDENT Intracranial aneurysm from Last 3 Months or Most Recently Relevant to Health Maintenance Results * CBC with platelets and differential (10/08/2023 10:20 AM CDT) [facility] WBC Count 4.6 4.0 - 11.0 10e3/uL 10/08/2023 10:24 AM CDT [facility] RBC Count 4.64 3.80 - 5.20 10e6/uL 10/08/2023 10:24 AM CDT [facility] Hemoglobin 13.3 11.7 - 15.7 g/dL 10/08/2023 10:24 AM CDT [facility] Hematocrit 40.6 35.0 - 47.0 % 10/08/2023 10:24 AM CDT [facility] MCV 88 78 - 100 fL 10/08/2023 10:24 AM CDT [facility] MCH 28.7 26.5 - 33.0 pg 10/08/2023 10:24 AM CDT [facility] MCHC 32.8 31.5 - 36.5 g/dL 10/08/2023 10:24 AM CDT [facility] RDW 14.6 10.0 - 15.0 % 10/08/2023 10:24 AM CDT [facility] Platelet Count 297 150 - 450 10e3/uL 10/08/2023 10:24 AM CDT [facility] % Neutrophils 55 % 10/08/2023 10:24 AM CDT [facility] % Lymphocytes 31 % 10/08/2023 10:24 AM CDT [facility] % Monocytes 12 % 10/08/2023 10:24 AM CDT [facility] % Eosinophils 1 % 10/08/2023 10:24 AM CDT [facility] % Basophils 1 % 10/08/2023 10:24 AM CDT [facility] % Immature Granulocytes 0 % 10/08/2023 10:24 AM CDT [facility] NRBCs per 100 WBC 0 <1 /100 024 10:24 AM CDT [facility] Absolute Neutrophils 2.5 1.6 - 8.3 10e3/uL 10/08/2023 10:24 AM CDT [facility] Absolute Lymphocytes 1.4 0.8 - 5.3 10e3/uL 10/08/2023 10:24 AM CDT [facility] Absolute Monocytes 0.5 0.0 - 1.3 10e3/uL 10/08/2023 10:24 AM CDT [facility] Absolute Eosinophils 0.0 0.0 - 0.7 10e3/uL 10/08/2023 10:24 AM CDT [facility] Absolute Basophils 0.0 0.0 - 0.2 10e3/uL 10/08/2023 10:24 AM CDT [facility] Absolute Immature Granulocytes 0.0 <=0.4 10e3/uL 10/08/2023 10:24 AM CDT [facility] Absolute NRBCs 0.0 10e3/uL 10/08/2023 10:24 AM CDT [facility] Blood STRUCTURE OF RIGHT UPPER LIMB / Unknown Venipuncture / Unknown 10/08/2023 10:20 AM CDT 10/08/2023 10:20 AM CDT Erick Hickman MD LAB - BLOOD ORDER ENZO [facility] [address] [facility] 1st [place] [address] * Hepatic panel (10/08/2023 10:20 AM CDT) Pathologist [facility] Protein Total 6.9 6.4 - 8.3 g/dL 10/08/2023 10:48 AM CDT [facility] Albumin 4.5 3.5 - 5.2 g/dL 10/08/2023 10:48 AM CDT [facility] Bilirubin Total 0.2 <=1.2 mg/dL 10/08/2023 10:48 AM CDT [facility] Alkaline Phosphatase 82 40 - 150 U/L 10/08/2023 10:48 AM CDT [facility] Comment:Reference intervals for this test were updated on 05/19/2023 to more accurately reflect our healthy population. There may be differences in the flagging of prior results with similar values performed with this method. Interpretation of those prior results can be made in the context of the updated reference intervals. AST 15 0 - 45 U/L 10/08/2023 10:48 AM CDT [facility] Comment:Reference intervals for this test were updated on 12/15/2022 to more accurately reflect our healthy population. There may be differences in the flagging of prior results with similar values performed with this method. Interpretation of those prior results can be made in the context of the updated reference intervals. ALT 17 0 - 50 U/L 10/08/2023 10:48 AM CDT [facility] Comment:Reference intervals for [...] - 0.30 mg/dL 10/08/2023 10:48 AM CDT [facility] Blood STRUCTURE OF RIGHT UPPER LIMB / Unknown Venipuncture / Unknown 10/08/2023 10:20 AM CDT 10/08/2023 10:20 AM CDT Erick Hickman MD LAB - BLOOD ORDER ENZO [facility] - [address] 1st [place] [address] * Basic metabolic panel FUTURE anytime (05/23/2020 8:48 AM BUILDINGS AND GROUNDS SUPERINTENDENT) Sodium 141 133 - 144 mmol/L 05/23/2020 1:58 PM [facility] Potassium 3.6 3.4 - 5.3 mmol/L 05/23/2020 1:58 PM [facility] Chloride 105 94 - 109 mmol/L 05/23/2020 1:58 PM [facility] Carbon Dioxide 27 20 - 32 mmol/L 05/23/2020 2:26 PM [facility] Anion Gap 9 3 - 14 mmol/L 05/23/2020 2:26 PM [facility] Glucose 87 70 - 99 mg/dL 05/23/2020 2:26 PM BUILDINGS AND GROUNDS SUPERINTENDENT [facility] Urea Nitrogen 14 7 - 30 mg/dL 05/23/2020 2:26 PM [facility] Creatinine 0.73 0.52 - 1.04 mg/dL 05/23/2020 2:26 PM [facility] GFR Estimate >90 >60 mL/min/{1 .73_m2} 05/23/2020 2:26 PM [facility] Comment: Non GFR Calc Starting 06/22/2018, serum creatinine based estimated GFR (eGFR) will be calculated using the Chronic Kidney Disease Epidemiology Collaboration (CKD-EPI) equation. GFR Estimate If Black >90 >60 mL/min/{1 .73_m2} 05/23/2020 2:26 PM [facility] Comment: GFR Calc Starting 06/22/2018, serum creatinine based estimated GFR (eGFR) will be calculated using the Chronic Kidney Disease Epidemiology Collaboration (CKD-EPI) equation. Calcium 9.5 8.5 - 10.1 mg/dL 05/23/2020 2:26 PM [facility] Blood specimen (specimen) 05/23/2020 8:48 AM BUILDINGS AND GROUNDS SUPERINTENDENT 05/23/2020 8:53 AM BUILDINGS AND GROUNDS SUPERINTENDENT Lin Daily MD LAB - BLOOD ORDERABL ES [facility] [address] [address], [facility] [phone] [facility] [place] [address] [place] [address] from Last 3 Months or Most Recently Relevant to Health Maintenance Care Teams Precinct Captain Relationship Specialty Start Date End Date Jacobo Campos MD [facility] [address] [place] [address] PCP - General Internal Medicine 09/08/13 Erick Hickman MD [address] [facility] - [id number] [address] Assigned Neuroscience Provider 04/27/20 Boy Rousseau MD [address] [place], [place] [id number] [address] Assigned Surgical Provider 04/27/20
--- OUTSIDE RECORDS SUMMARY | 2023-11-02 08:50 | XMS_ITS | Encounter Summary ---
Author Name Unknown Organization [place] Address [address] [place] [address] Care Team Providers Care Medical Office Receptionist Name Role Phone Jacobo Campos MD Primary Care Provider Erick Hickman MD Unavailable [phone] Boy Rousseau MD Unavailable Reason for Visit * Reason Onset Date Comments Call Back 04/22/2023 Aubagio appeal Encounter Details Date Type Department Care Team (Late st Contact Info) Description 04/22/2023 Telephone [facility] S[facility] [address] [address] Erick Hickman MD [address] [place] [address] - [id number] [place] [address] Call Back (Aubagio appeal ) [...] (AUBAGIO) 14 MG tablet. Eliz stated that [facility] stated that they did not receive theappeal on 04/16/23 for this medication and is requesting to resubmit the appeal to [facility]. Eliz is requesting a call to [employer] at to explain the reason she is needing to take teriflunomide (AUBAGIO) 14 MG tablet. Please call Eliz to discuss at your earliest convenience. Action Taken: Message routed to: [facility] ([facility]): MS Travel Screening: Not Applicable * Telephone Encounter - Suri Carr - 04/22/2023 12:45 PM CDT [facility] Call Center Phone Message May a detailed message be left on voicemail: yes Reason for Call: Other: Pt is requesting a call back in regards to the appeal with [facility] for her Aubagio medication. Pt states BS hasn't received the appeal. Please call pt back with update at # [phone] Action Taken: Message routed to: [facility] ([facility]): Neurology Travel Screening: Not Applicable documented in this encounter Plan of Treatment Upcoming Encounters Date Type Department Care Team (Late st Contact Info) Description 05/26/2024 9:30 AM PRE ASSEMBLY WIRER Office Visit [facility] Multiple Sclerosis [address] [address] Erick Hickman MD [address] [place] [address] - [id number] [place], [place] [address] documented as of this encounter Visit Diagnoses Not on filedocumented in this encounter Care Teams Medical Office Receptionist Relationship Specialty Start Date End Date Jacobo Campos MD [facility] [address] [place] [address] PCP - General Internal Medicine 09/08/13 Erick Hickman MD [address] [place] [id number], [place] [address] Assigned Neuroscience Provider 04/27/20 Boy Rousseau MD [address] [place], [place] [address], [place] [address] Assigned Surgical Provider 04/27/20 documented as of this encounter
--- OUTSIDE RECORDS SUMMARY | 2023-11-02 08:50 | XMS_ITS | Encounter Summary ---
Author Name Unknown Organization [place] Address [address] [place] [address] Care Team Providers Care Assembly Machine Feeder Name Role Phone Jacobo Campos MD Primary Care Provider Erick Hickman MD Unavailable [phone] Boy Rousseau MD Unavailable [phone] Reason for Visit * Reason Onset Date Comments Medication Request 04/30/2023 teriflunomide (AUBAGIO) 14 MG tablet Encounter Details Date Type Department Care Team (Late st Contact Info) Description 04/30/2023 Telephone [facility] [address] [address] Erick Hickman MD [address] [place] [address] - [id number] [place], [place] [id number] Medication Request (teriflunomide (AUBAGIO) 14 MG tablet [...] * Telephone Encounter - Violet Cai - 04/30/2023 4:09 PM CDT [facility] Phone Message May a detailed message be left on voicemail: yes Reason for Call: Medication Question or concern regarding medication Prescription Clarification Name of Medication: teriflunomide (AUBAGIO) 14 MG tablet Prescribing Provider: Dr. Hickman Pharmacy: [facility] specialty pharmacy What on the order needs clarification? Mikki from the [facility] specialty pharmacy is requesting the [...] st Contact Info) Description 05/26/2024 9:30 AM FACING CUTTING MACHINE OPERATOR Office Visit [facility] [address] [phone] Erick Hickman MD [address] [place] [address] documented as of this encounter Visit Diagnoses Diagnosis Multiple sclerosis (H) Multiple sclerosis documented in this encounter Care Teams Assembly Machine Feeder Relationship Specialty Start Date End Date Jacobo Campos MD [facility] [address] [place] [address] PCP - General Internal Medicine 09/08/13 Erick Hickman MD [address] [place] [address] Assigned Neuroscience Provider 04/27/20 Boy Rousseau MD [address] [place], [place] [id number] [place] [address] Assigned Surgical Provider 04/27/20 documented as of this encounter
--- OUTSIDE RECORDS SUMMARY | 2023-11-02 08:50 | XMS_ITS | Encounter Summary ---
Author Name Unknown Organization [place] Address [address] [place] [address] Care Team Providers Care Assembler For Puller Over Hand Name Role Phone Jacobo Campos MD Primary Care Provider Erick Hickman MD Unavailable Boy Rousseau MD Unavailable Reason for Visit * Reason Onset Date Comments Refill Request 10/16/2023 Tamsulosin Encounter Details Date Type Department Care Team (Late st Contact Info) Description 10/16/2023 Refill [facility] [address] [address] Erick Hickman MD [address] [place] [address] - [id number] [place] [address] Refill Request (Tamsulosin ) Social History Tobacco Use Types Packs/Day [...] Telephone Encounter - Racquel Whitt RN - 10/16/2023 5:19 PM CDT Received refill request for tamsulosin from [facility]; Patient was last seen in Octobernd has follow up appointment in May [address] Hickman. Refilled per [place] refill protocol. Racquel Whitt RN documented in this encounter Plan of Treatment Upcoming Encounters Date Type Department Care Team (Late st Contact Info) Description 05/26/2024 9:30 AM TRAIL MAINTENANCE WORKER Office Visit [facility] Multiple Sclerosis Clinic [address] [phone] Erick Hickman MD [address] [place] [address] documented as of this encounter Visit Diagnoses Diagnosis Neurogenic bladder Neurogenic bladder, NOS documented in this encounter Care Teams Assembler For Puller Over Hand Relationship Specialty Start Date End Date Jacobo Campos MD [facility] [address] [place] [address] PCP - General Internal Medicine 09/08/13 Erick Hickman MD [address] [place] [address] Assigned Neuroscience Provider 04/27/20 Boy Rousseau MD [address] [place], [place] [id number] [address] Assigned Surgical Provider 04/27/20 documented as of this encounter
--- OUTSIDE RECORDS SUMMARY | 2023-11-02 08:50 | XMS_ITS | Encounter Summary ---
Author Name Unknown Organization [place] Address [address] [place] [address]. [place] [address] Care Team Providers Care Project Portfolio Analyst Name Role Phone Jacobo Campos MD Primary Care Provider Erick Hickman MD Unavailable [phone] Boy Rousseau MD Unavailable Reason for Visit * Reason Comments Orders [facility] Encounter Details Date Type Department Care Team (Latest Contact Info) Description 10/08/2023 Documentation Only [facility] [address] [address] Erick Hickman MD [address] [place] [address] - [id number] [place] [address] Orders ([facility] ) Social History Tobacco Use Types Packs/Day [...] as of this encounter Progress Notes * Reinaldo Pavon - 10/08/2023 3:19 PM CDT Orders for MRI of the brain, cervical and angiogram of the head have been faxed over to [facility] at [phone]. Reinaldo Pavon EMT October 08, 2023 documented in this encounter Plan of Treatment Upcoming Encounters Date Type Department Care Team (Late st Contact Info) Description 05/26/2024 9:30 AM PROSTHETIC DENTIST Office Visit [facility] Multiple Sclerosis [address] [phone] Erick Hickman MD [address] [place] [address] documented as of this encounter Visit Diagnoses Not on filedocumented in this encounter Care Teams Project Portfolio Analyst Relationship Specialty Start Date End Date Jacobo Campos MD [facility] [address] [place] [address] PCP - General Internal Medicine 09/08/13 Erick Hickman MD [address] [place] [address] Assigned Neuroscience Provider 04/27/20 Boy Rousseau MD [address] [place], [place] [id number], [place] [address] Assigned Surgical Provider 04/27/20 documented as of this encounter
--- OUTSIDE RECORDS SUMMARY | 2023-11-02 08:50 | XMS_ITS | Encounter Summary ---
Author Name Unknown Organization [place] Address [address] [place] [address] Care Team Providers Care Special Needs Nanny Name Role Phone Jacobo Campos MD Primary Care Provider Guerita Holbrook RN Unavailable Erick Hickman MD Unavailable [phone] Boy Rousseau MD Unavailable [phone] Reason for Visit * Reason Onset Date Comments Call Back 10/17/2020 Encounter Details Date Type Department Care Team (Late st Contact Info) Description 10/17/2020 Telephone [facility] [address] [phone] Boy Rousseau MD [address] [place] [address] [id number] [place], [place] [id number] Call Back Social History Tobacco Use Types [...] imaging report to Dr. Gamez at fax# [phone] Campos at fax# [phone]. No other questions or concerns at this time. * Telephone Encounter - Dian Gibbs RN - 10/18/2020 11:06 AM CDT Ok for MRI. 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 See implant information for details. * Telephone Encounter - Olga Vargas - 10/17/2020 3:[address] [facility] Phone Message May a detailed message be left on voicemail: yes Reason for Call: Other: Patient calling looking to speak with care team of Dr. Rousseau - states that her provider in [place] is needing clarification/ confirmation if she is able to get MRI on spine and brain and neck area. States that she is having back and spine issues. Please advise and call patient back at your earliest convenience to discuss further Action Taken: Other: [facility]UR[facility] Travel Screening: Not Applicable documented in this encounter Plan of Treatment Upcoming Encounters Date Type Department Care Team (Late st Contact Info) Description 05/26/2024 9:30 AM CHUCK TENDER Office Visit [facility] [address] [address] Erick Hickman MD [address] [place] [address] - [id number] [place], [place] [address] documented as of this encounter Visit Diagnoses Not on filedocumented in this encounter Care Teams Special Needs Nanny Relationship Specialty Start Date End Date Jacobo Campos MD [facility] [address] [place] [address] PCP - General Internal Medicine 09/08/13 Guerita Holbrook, RN Specialty Bank Courier Neurology 06/22/15 02/28/21 Erick Hickman MD [address] [place] [address] - [id number], [place] [address] Assigned Neuroscience Provider 04/27/20 Boy Rousseau MD [address] [place], [place] [address], [place] [address] Assigned Surgical Provider 04/27/20 documented as of this encounter
--- OUTSIDE RECORDS SUMMARY | 2023-11-02 08:51 | XMS_ITS | Encounter Summary ---
Author Name Unknown Organization [place] Address [address] [place] [address] Care Team Providers Care Cupola Melter Helper Name Role Phone Jacobo Campos MD Primary Care Provider Guerita Holbrook RN Unavailable Erick Hickman MD Unavailable [phone] Boy Rousseau MD Unavailable [phone] Reason for Visit * Reason Onset Date Comments letter and symptoms 01/26/2020 update worka bility letter and discuss symptoms. Encounter Details Date Type Department Care Team ([facility] st Contact Info) Description 01/26/2020 Telephone [facility] Neurosurgery [address] [place] [address] [address] [place] [address] Boy Rousseau MD [address] [place] [address] [id number] [place] [address] letter and symptoms (update workability [...] Jenae Oquendo Taken Imaging disc received from [facility] and sent to [facility] to be uploaded into PACs. 01/25/20 - Cervical Spine WO * Telephone Encounter - Charley Horowitz RN - 01/27/2020 3:37 PM CDT Called [facility] and they will fax c-spine MRI report from 01/24. They are unable to push images to [facility] and won't send a disc without an updated JED. I called the patient and she will call [facility] and have them release images. Report rec'd [...] primary care provider, Dr. Jacobo Campos at [facility]. Dr. Campos reportedly stated that patient has [...] and discuss MRI. * Patient will contact [facility] to have imaging sent/pushed to PACS Patient [...] at work. Fax number to [employer] [facility]: [phone] Please call once request is complete and to discuss. Action Taken: Other: [facility] Travel Screening: Not Applicable documented in this encounter Plan of Treatment Upcoming Encounters Date Type Department Care Team (Late st Contact Info) Description 05/26/2024 9:30 AM OCCUPATIONAL HEALTH MANAGER Office Visit [facility] Sclerosis Clinic [address] [phone] Erick Hickman MD [address] [place] [address] documented as of this encounter Visit Diagnoses Not on filedocumented in this encounter Care Teams Cupola Melter Helper Relationship Specialty Start Date End Date Jacobo Campos MD [facility] [address] [place] [address] PCP - General Internal Medicine 09/08/13 Guerita Holbrook, DIVINE Specialty Digital Sales Representative Neurology 06/22/15 02/28/21 Erick Hickman MD [address] [place] [address] Assigned Neuroscience Provider 04/27/20 Boy Rousseau MD [address] [facility] [id number] [place] [address] Assigned Surgical Provider 04/27/20 documented as of this encounter
--- OUTSIDE RECORDS SUMMARY | 2023-11-02 08:51 | XMS_ITS | Encounter Summary ---
Author Name Unknown Organization [place] Address [address] [place] [address] Care Team Providers Care Banquet Director Name Role Phone Jacobo Campos MD Primary Care Provider Guerita Holbrook RN Unavailable Erick Hickman MD Unavailable [phone] Boy Rousseau MD Unavailable [phone] Reason for Visit * Reason Onset Date Comments Appointment 12/08/2019 Upcoming appoint ment question Encounter Details Date Type Department Care Team (Late st Contact Info) Description 12/08/2019 Telephone [facility] Neurosurgery [address] [facility] [address] [place] [address] Boy Rousseau MD [address] [place] [address] [id number] [place] [address] Appointment (Upcoming appointment question) Social [...] Antonina Torres - 12/08/2019 8:39 AM CDT [facility] Call Center Phone Message May a [...] st Contact Info) Description 05/26/2024 9:30 AM SOCIAL WORK ASSOCIATE Office Visit [facility] Multiple Sclerosis [address] [phone] Erick Hickman MD [address] [place] [address] - [id number] [place] [address] documented as of this encounter Visit Diagnoses Not on filedocumented in this encounter Care Teams Banquet Director Relationship Specialty Start Date End Date Jacobo Campos MD [facility] [address] [place] [address] PCP - General Internal Medicine 09/08/13 Guerita Holbrook, DIVINE Specialty Manager Ent Neurology 06/22/15 02/28/21 Erick Hickman MD [address] [facility] [id number], [place] [address] Assigned Neuroscience Provider 04/27/20 Boy Rousseau MD [address] [place], [place] [id number], [place] [address] Assigned Surgical Provider 04/27/20 documented as of this encounter
--- OUTSIDE RECORDS SUMMARY | 2023-11-02 08:51 | XMS_ITS | Clinical Summary ---
Author Name Unknown Organization [facility] Address [place], [place] [address] Care Team Providers Care Pecan Huller Name Role Phone Jacobo Campos MD Primary Care Provider Allergies Active Allergy Reactions Criticality Noted Date [...] estradiol 0.1 mg/24 hr (ESTRADERM; VIVELLE-DOT) patch 08/11/2016 Active metroNIDAZOLE 0.75% vaginal (METROGEL) 0.75 % vaginal gel 08/11/2016 Active biotin 100 mg/gram powd Mix 1 Tablet in liquid then take by mouth. Active calcium carbonate-vitamin D3 500 mg(1,250mg) -200 unit pwpk Mix in liquid then take by mouth. Active cranberry fruit extract (CRANBERRY POWDER ORAL) Take 1 Tablet by mouth. Active ascorbic acid, vitamin C, 500 mg cap Take 1 Capsule by mouth once daily. Active vitamin E acid succinate (vitamin E succinate) 400 unit tab Take 400 units by mouth. Active durable medical equipment (DME)Indications:Ce rvical disc herniation,Cervical radiculopathy,Neck pain, chronic Cervical Traction Unit for home use. Length of Use: 99 months 1 Each 12/21/2020 Active teriflunomide 14 mg tab Take 1 tablet (14 mg) by mouth daily 90 Tablet 3 05/01/2023 Active gabapentin (NEURONTIN) 300 mg capsuleIndications: Lumbar radiculopathy Take 1 Capsule (300 mg) by mouth three times daily. At bedtime only for 7 days, then twice daily for 7 days, then three times daily. 90 Capsule 2 08/06/2023 Active oxyCODONE-acetamino phen (Percocet) 5-325 mg per tabletIndications:L umbar radiculopathy Take 1 Tablet by mouth every 6 hours if needed for Pain. Max acetaminophen dose: 4000mg in 24 hrs. 24 Tablet 08/06/2023 Active tiZANidine (ZANAFLEX) 4 mg tabletIndications:L umbar radiculopathy TAKE 1 TABLET(4 MG) BY MOUTH EVERY 6 HOURS NEEDED FOR MUSCLE SPASM 24 Tablet 1 08/07/2023 Active LORazepam (ATIVAN) 1 mg tabletIndications:A nxiety due to invasive procedure Take 1 Tablet (1 mg) by mouth one time for 1 dose. 1 Tablet 08/12/2023 Active Active Problems Problem Noted Date Diagnosed Date Acetabular labrum tear, left, sequela 09/24/2023 Piriformis syndrome of left side 09/24/2023 Greater trochanteric bursitis of left hip 2023 Lumbar and sacral osteoarthritis 09/24/2023 Neurogenic bladder 02/18/2016 Recurrent UTI 02/18/2016 Multiple sclerosis 10/12/2010 COUGH 02/25/2000 Encounters Date Type Department Care Team Description 09/28/2023 Telephone [facility] [address] [place] [phone] Yinka Fontenot MD Questions (CALL BACK ) 09/28/2023 [facility] [address] [place] [address] [place] [address] Alecia Ramirez OD Error-please disregard 09/24/2023 9:00 AM CDT Ancillary Procedure [facility] [address] [place] [address] 09/24/2023 8:40 AM CDT Office Visit [facility] [address] [facility] [address] [place] [address] Yinka Fontenot MD Hip Pain/problem (HEEL SEAT FITTER - left hip pain) 09/24/2023 Orders Only [facility] [address] [place] [address] Oneal Gamez MD <No scans attached> 09/24/2023 Travel 09/03/2023 Telephone [facility] [address] [place] [address] Oneal Gamez MD Questions 09/03/2023 Telephone [facility] [address] [place] [phone] Yinka Fontenot MD Appointment (WC - Left Hip and Groin Pain ) 09/01/2023 Telephone [facility] [address] [place] [address] Oneal Gamez MD Form (WORK ABILITY FORM/WORKERS COMP) 08/31/2023 Telephone [facility] [address] [place] [address] Oneal Gamez MD Results 08/27/2023 10:02 AM FELLMONGERY WORKER - 08/27/2023 11:59 PM FELLMONGERY WORKER Hospital Encounter [facility] [address] [facility] [place] [address] Oneal Gamez MD Lumbar radiculopathy; Lumbar disc herniation; Hip strain, left, initial encounter; Left groin pain 08/27/2023 Refill [facility] [address] [place] [address] Oneal Gamez MD Refill Request (Gabapentin) 08/27/2023 Travel 08/14/2023 Telephone [facility] [address] [place] [address] Oneal Gamez MD Questions 08/11/2023 Telephone [facility] [address] [facility] [place] [address] Oneal Gamez MD Questions (fax ) 08/10/2023 Telephone [facility] [address] [place] [address] Oneal Gamez MD Letter For Work (Updated Restrictions) 08/07/2023 Refill [facility] [address] [place] [address] Oneal Gamez MD Refill Request (Tizanidine) 08/06/2023 1:40 PM FELLMONGERY WORKER Office [facility] [address] [facility] [place] [address] Oneal Gamez MD [facility] (Follow up work comp back, left hip/groin and leg date of injury:06/08/23) 08/06/2023 Travel from Last 3 Months Immunizations Name Administration [...] Sign Reading Time Taken Comments Blood Pressure 111/78 08/06/2023 1:51 PM FELLMONGERY WORKER Pulse 76 08/06/2023 1:51 PM FELLMONGERY WORKER Temperature 37 ??C (98.6 ??F) 08/06/2023 1:51 PM FELLMONGERY WORKER Respiratory Rate 16 09/02/2016 9:30 AM FELLMONGERY WORKER Oxygen Saturation 100% 08/06/2023 1:51 PM FELLMONGERY WORKER Inhaled Oxygen Concentration - - Weight 75.4 kg (166 lb 3.2 oz) 08/06/2023 1:51 P M FELLMONGERY WORKER Height 170 cm (5' 6.93) 08/04/2016 9:28 AM FELLMONGERY WORKER Body Mass Index 26.09 08/04/2016 9:28 AM FELLMONGERY WORKER Plan of Treatment Health Maintenance Due Date Last Done Comments Tdap 09/21/1983 HIV for age 15-65 09/21/1987 [...] for age 50+ (1 of 2) 2022 COVID-19 vaccine series (1 - 2022-24 season) 2023 Influenza for age 50-64 03/06/2024 Pneumococcal series for age 6-64 Aged Out No longer eligible b ased on patient's age to complete this topic Procedures Procedure Name Priority Date/Time Associated Diagnosis Comments XR HIP 2 OR 3 VIEWS W PELVIS LEFT Routine 09/24/2023 9:07 AM CDT Pain of left hip Left groin pain Acetabular labrum tear, left, sequela MR ARTHROGRAM HIP LEFT Routine 08/27/2023 11:14 AM FELLMONGERY WORKER Lumbar radiculopathy Lumbar disc herniation Hip strain, left, initial encounter Left groin pain XR INJ CT/MR ARTHROGRAM HIP LEFT Routine 08/27/2023 10:45 AM FELLMONGERY WORKER Lumbar radiculopathy Lumbar disc herniation Hip strain, left, initial encounter Left groin pain GAMING INVESTIGATOR THIN PREP PAP SCREEN IMAGED Routine 05/21/2007 4:49 PM FELLMONGERY WORKER Screening Malignant Neoplasms Cervix from Last 3 Months or Most Recently Relevant to Health Maintenance Results * XR HIP 2 OR 3 VIEWS W PELVIS LEFT (09/24/2023 9:07 AM CDT) Anatomical Region Laterality Modality HIPS, HIPL, Pelvis Digital Radio graphy Impressions 09/24/2023 4:36 PM CDT No loose bodies. ??No hardware. ??No fracture or dislocation. All services were personally performed by Yinka Fontenot MD Documentation performed by Vish Almazan, ATC, LAT based on my observation of services performed and provider statements to me. Yinka Fontenot MD 09/24/2023 ?? Narrative 09/24/2023 4:36 PM CDT This radiology exam was performed at the [facility] in the [facility] Radiology Department and interpreted by Yinka Fontenot MD. HISTORY: A 53 y.o. female with left hip pain. TECHNICAL: 3 view(s) were obtained of the Left hip consisting of Weight Bearing AP pelvis, Modified Latham , and False Profile FINDINGS: There are 0 osteophytes. ??Joint space is 3.8 mm, 4 mm, 4.5 mm lateral to medial sourcil. Latham view: ??decreased head neck offset, no CAM lesion False profile: ??Appropriate coverage of the femoral head. ??No joint space narrowing. Specific Findings: LCEA: 30?? ACEA: 27?? Neck shaft angle: Normal Alpha: 61?? Tonnis: ??<10?? Yinka Fontenot MD GENERAL IMAGING * MR ARTHROGRAM HIP LEFT (08/27/2023 11:14 AM FELLMONGERY WORKER) Anatomical Region Laterality Modality HIPL Magnetic Resonan ce 08/27/2023 11:1 4 AM FELLMONGERY WORKER Impressions 08/27/2023 1:38 PM FELLMONGERY WORKER 1. ??Nondisplaced anterosuperior and posterosuperior acetabular labral tears. No paralabral cyst. 2. ??No focal full-thickness cartilage defect or subchondral marrow change of the left hip. 3. ??Mild proximal hamstring tendinosis. No tendon tear. Narrative 08/27/2023 1:38 PM FELLMONGERY WORKER For Patients: As a result of the Cures Act, medical imaging exams and procedure reports are released immediately into your electronic medical record. You may view this report before your referring provider. If you have questions, please contact your health care provider. EXAM: MR ARTHROGRAM HIP LEFT LOCATION: [facility] DATE: 08/27/2023 INDICATION: Lumbar radiculopathy, lumbar disc herniation, hip strain, left, initial encounter, left groin pain. COMPARISON: Same day fluoroscopic procedural image. TECHNIQUE: MR arthrogram protocol, obtained after administration of dilute gadolinium solution into the hip joint. FINDINGS: LEFT HIP: -Labrum: Blunting and fraying of the free edge of the anterosuperior acetabular labrum with a partial-thickness tear at the labral cartilaginous junction (series 10 image 13). Additional focal partial-thickness tear of the posterosuperior acetabular labrum at the labral cartilaginous junction (series 4 image 15). Triangular- shaped fluid-filled defect involving the posterosuperior labrum extending posteriorly from the previously described labral tear with smooth margins, likely a normal sublabral sulcus. No para labral cyst. -Cartilage: No focal full-thickness cartilage defect or subchondral marrow changes. -Joint space: No loose bodies. -Joint capsule/ligaments: Intact joint capsule. Ligamentum teres is intact. -Morphology: Alpha Angle is normal. No bony morphologic changes associated with femoroacetabular impingement. RIGHT HIP: No fracture, osteonecrosis, or joint effusion. TENDONS: -Gluteal: No tendon tear or tendinopathy. No trochanteric bursitis. -Proximal hamstring: Mild tendinosis. No tendon tear. -Iliopsoas: No tendon tear or tendinopathy. No bursitis. -Rectus femoris origin: No tear or tendinopathy. BONES: -No fracture or concerning marrow replacing lesion. -No SI joint effusion or synovitis. Lower lumbar spondylosis with discogenic endplate changes at L4-L5 and L5-S1. SOFT TISSUES: -Normal muscle bulk. No acute muscular injury. -No soft tissue mass or fluid collection. INTRAPELVIC CONTENTS: -Visualized portions are normal. Procedure Note Kelby Covarrubias DO - 08/27/2023 For Patients: As a result of the Cures Act, medical imagingexams and procedure reports are released immediately into your electronicmedical record. You may view this report before your referring provider.If you have questions, please contact your health care provider. EXAM: MR ARTHROGRAM HIP LEFT LOCATION: [facility] DATE: 08/27/2023 INDICATION: Lumbar radiculopathy, lumbar disc herniation, hip strain,left, initial encounter, left groin pain. COMPARISON: Same day fluoroscopic procedural image. TECHNIQUE: MR arthrogram protocol, obtained after administration of dilutegadolinium solution into the hip joint. FINDINGS: LEFT HIP: -Labrum: Blunting and fraying of the free edge of the anterosuperioracetabular labrum with a partial-thickness tear at the labralcartilaginous junction (series 10 image 13). Additional focalpartial-thickness tear of the posterosuperior acetabular labrum at thelabral cartilaginous junction (series 4 image 15). Tgmzuefwfm-itdxgeveolw-bmvmzn defect involving the posterosuperior labrum extendingposteriorly from the previously described labral tear with smooth margins,likely a normal sublabral sulcus. No para labral cyst. -Cartilage: No focal full-thickness cartilage defect or subchondral marrowchanges. -Joint space: No loose bodies. -Joint capsule/ligaments: Intact joint capsule. Ligamentum teres isintact. -Morphology: Alpha Angle is normal. No bony morphologic changes associatedwith femoroacetabular impingement. RIGHT HIP: No fracture, osteonecrosis, or joint effusion. TENDONS: -Gluteal: No tendon tear or tendinopathy. No trochanteric bursitis. -Proximal hamstring: Mild tendinosis. No tendon tear. -Iliopsoas: No tendon tear or tendinopathy. No bursitis. -Rectus femoris origin: No tear or tendinopathy. BONES: -No fracture or concerning marrow replacing lesion. -No SI joint effusion or synovitis. Lower lumbar spondylosis withdiscogenic endplate changes at L4-L5 and L5-S1. SOFT TISSUES: -Normal muscle bulk. No acute muscular injury. -No soft tissue mass or fluid collection. INTRAPELVIC CONTENTS: -Visualized portions are normal. IMPRESSION: 1. Nondisplaced anterosuperior and posterosuperior acetabular labraltears. No paralabral cyst. 2. No focal full-thickness cartilage defect or subchondral marrow changeof the left hip. 3. Mild proximal hamstring tendinosis. No tendon tear. Oneal Gamez MD MR * XR INJ CT/MR ARTHROGRAM HIP LEFT (08/27/2023 10:45 AM FELLMONGERY WORKER) Anatomical Region Laterality Modality HIPL Digital Radiogra phy, Computed Tomography Narrative 08/27/2023 12:53 PM FELLMONGERY WORKER Indication: Left hip pain. Technique: Fluoroscopically-guided left hip arthrogram. Findings: After informed consent was obtained from the patient a formal time-out was performed. An appropriate site in the patient's ventral left hip region was prepped with ChloraPrep antiseptic and allowed to dry. Using 1 percent local lidocaine anesthesia, sterile technique and intermittent fluoroscopic guidance a 3.5 inch 22 gauge needle was advanced into the ventral left hip with the tip of the needle identified along the lateral femoral neck. Subsequently, a combination of 7 cc of Omnipaque 300 nonionic contrast, 7 cc of sterile saline, 3 cc of 1 percent preservative-free lidocaine and 0.1 cc of Gadavist gadolinium contrast was injected. The needle was removed and hemostasis was obtained at the skin puncture site. The patient tolerated the procedure well with no immediate complications or complaints. 35 seconds of fluoroscopy time was utilized for this procedure and 1 fluoro spot image was obtained. Impression: Successful uneventful fluoroscopically guided left hip arthrogram. Please see follow-up MRI of the left hip for complete details of this combined examination. Signed by: Jax Lee MD @08/27/2023 11:11:35 AM Oneal Gamez MD FLUOROSCOPY * GAMING INVESTIGATOR THIN PREP PAP SCREEN IMAGED (05/21/2007 4:49 PM FELLMONGERY WORKER) CYTOLOGY ??CYTOPATHOLOGY REPORT ??[facility] ?? Status: Final Report ? [id number] ?? CLINICAL INFORMATION ?LMP ? : 05/02/07 ?Previous Pap Date ? : 2004 ?Previous PAP Dx ? : Negative for intraepithelial lesion or ?malignancy. ?Previous Monroe/bx date : None ?Previous Colposcopy/Bx: None ?Hormone Usage ? : None ?Menstrual Status ?: Regular Periods ?Appearance of Cervix ??: NORMAL ?Monroe/Bx done today ?: No ?HPV Request ? : Reflex HPV test if PAP Dx ASCUS ?? SPECIMEN SOURCE ?: Cervical/vaginal ThinPrep Vial, screening ?? SPECIMEN ADEQUACY ?: Satisfactory for evaluation Endocervical ?component present. ? INTERPRETATION/RES ULT: ?Negative for intraepithelial lesion or malignancy. ? Cytology 1st Screener : ??ll ?? Cytology 2nd Screener : ??djs ?? Signed by: ? djs ?? This specimen was screened by the FDA approved ThinPrep Imaging ?? System and manually reviewed. ?? NOTE: The Pap test is a screening technique, not a diagnostic ?? procedure. It is used primarily to screen for squamous cancers and ?? precursor lesions. Published studies have shown that it is subject to ?? both false negative and false positive results. The pap test should ?? not be used as the sole means to diagnose or exclude pre-malignant and ?? malignant lesions. ?? COLLECTED: 05/21/07 ?? ACCESSIONED: 05/21/07 ?? SIGNED: 06/07/07 [facility] Cervical (Cervical) 05/21/2007 4:49 PM FELLMONGERY WORKER 05/21/2007 4:45 PM FELLMONGERY WORKER Janeth Barrett NP PATHOLOGY/CYTOLOGY [facility] [place]NAL ZIP [address] [place] [id number] from Last 3 Months or Most Recently Relevant to Health Maintenance Care Teams Pecan Huller Relationship Specialty Start Date End Date Jacobo Campos MD [address] [place] [address] PCP - General Internal Medicine 10/25/21
--- OUTSIDE RECORDS SUMMARY | 2023-11-02 08:51 | XMS_ITS | Encounter Summary ---
Author Name Unknown Organization [facility] Address [address] [place] [address] Care Team Providers Care Industrial Photographer Name Role Phone Jacobo Campos MD Primary Care Provider Guerita Holbrook RN Unavailable Erick Hickman MD Unavailable [phone] Boy Rousseau MD Unavailable [phone] Reason for Visit * Reason Onset Date Comments Refill Request 05/18/2019 AUBAGIO 14 MG ta blet Encounter Details Date Type Department Care Team (Late st Contact Info) Description 05/18/2019 [facility] [address] [address] Erick Hickman MD [address] [place] [address] - [id number] [address] Refill Request (AUBAGIO 14 MG [...] this. No further needs at this time. HOLOGIST INDUSTRIAL ORGANIZATIONAL * Telephone Encounter - Christopher De Anda - 05/18/2019 1:57 PM CST [facility] Phone Message May a detailed message be left on voicemail: no Reason for Call: Medication Refill Request Has the patient contacted the pharmacy for the refill? Yes Name of medication being requested: AUBAGIO 14 MG tablet Provider who prescribed the medication: Dr. Hickman Pharmacy: [facility] Specialty Date medication is needed: Pt has [...] routed to: [facility] ADULT [facility] HOLOGIST INDUSTRIAL ORGANIZATIONAL documented in this encounter Plan of Treatment Upcoming Encounters Date Type Department Care Team (Late st Contact Info) Description 05/26/2024 9:30 AM PSYCHOLOGIST INDUSTRIAL ORGANIZATIONAL Office Visit [facility] [address] [address] Erick Hickman MD [address] [place] [address] - [id number] [place] [address] documented as of this encounter Visit Diagnoses Diagnosis Multiple sclerosis (H) Multiple sclerosis documented in this encounter Care Teams Industrial Photographer Relationship Specialty Start Date End Date Jacobo Campos MD [facility] [address] [place] [address] PCP - General Internal Medicine 09/08/13 Guerita Holbrook, RN Specialty Chief [place] Neurology 06/22/15 02/28/21 Erick Hickman MD [address] [place] [address] - [id number] [place] [address] Assigned Neuroscience Provider 04/27/20 Boy Rousseau MD [address] [place], [place] [id number], [place] [id number] Assigned Surgical Provider 04/27/20 documented as of this encounter
--- OUTSIDE RECORDS SUMMARY | 2023-11-02 08:51 | XMS_ITS | Encounter Summary ---
Author Name Unknown Organization [facility] Address [address] [place] [address] Care Team Providers Care Administrative Assistant Data Entry Name Role Phone Jacobo Campos MD Primary Care Provider Guerita Holbrook RN Unavailable Erick Hickman MD Unavailable [phone] Boy Rousseau MD Unavailable [phone] Encounter Details Date Type Department Care Team [...] Shoaib Garduno - 08/19/2012 1:15 PM CST Router Tender: Shoaib Garduno Status: Final - Signature Encounter: 2012-08-19 13:15:00.000 Type: Neurology Letter [facility] [address] [address] August 19, 2012 Jacobo Campos M.D. [facility] [address] [place] [address] RE: Eliz Hartman : 1970 DHRUV: 08/19/2012 [...] she is going on a vacation to [place] soon. Current medications are Rebif, vitamin D, [...] Strength is normal. Sensory examination is intact. Kcrpfz-rf-fprg is done well. Her gait is normal, [...] aware of this while she is in [place]. She will continue to see me at least every six months. Sincerely, Shoaib Garduno MD Department of Neurology [facility] CLH:11 Electronically signed by:Shoaib Garduno M.D. Aug 19 2012 4:30PM CAR ELECTRONICS INSTALLER ELECTRONICS INSTALLER documented in this encounter Plan of Treatment Upcoming Encounters Date Type Department Care Team (Late st Contact Info) Description 05/26/2024 9:30 AM CAR ELECTRONICS INSTALLER Office Visit [facility] [address] [address] Erick Hickman MD [address] [place], [place] [address] [address] documented as of this encounter Visit Diagnoses Not on filedocumented in this encounter Care Teams Administrative Assistant Data Entry Relationship Specialty Start Date End Date Jacobo Campos MD [address] [address] PCP - General Internal Medicine 09/08/13 Guerita Holbrook, RN Specialty Quality Assistant Neurology 06/22/15 02/28/21 Erick Hickman MD [address] [place], [place] [id number] [address] Assigned Neuroscience Provider 04/27/20 Boy Rousseau MD [address] [place], [place] [id number] [address] Assigned Surgical Provider 04/27/20 documented as of this encounter
--- OUTSIDE RECORDS SUMMARY | 2023-11-02 08:51 | XMS_ITS | Encounter Summary ---
Author Name Unknown Organization [facility] Address [address] [place] [address] Care Team Providers Care Micro Computer Data Processor Name Role Phone Jacobo Campos MD Primary Care Provider Guerita Holbrook RN Unavailable Erick Hickman MD Unavailable [phone] Boy Rousseau MD Unavailable [phone] Reason for Visit * Reason Onset Date Comments Prior Auth - Medication 06/23/2019 teriflun omide (AUBAGIO) 14 MG tablet Call Back 06/23/2019 Encounter Details Date Type Department Care Team (Late st Contact Info) Description 06/23/2019 Telephone [facility] Multiple Sclerosis [address] [address] Erick Hickman MD [address] [place] [address] - [id number] [place], [place] [address] Prior Auth - Medication (teriflunomide (AUBAGIO) 14 [...] 1:20 PM CST Aubagio Rx sent to [facility]. ASSESSOR * Telephone Encounter - Tamara Mccullough - 07/07/2019 1:01 PM CST Images from the original note were not included. I spoke with the patient and she can now fill with [facility]. I've already added her insurance through [facility] and obtained her copay card and added both to their system. A new RX for Aubagio will need to be sent to [facility] to initiate their new patient process. PDM Copay Card: [facility] [place] insurance: Thank you, Tamara Mccullough [facility] [address] 3rd [place] [address] [email or web address] ASSESSOR * Telephone Encounter - Charley Horowitz RN - 07/07/2019 11:48 AM CST Tamara, please see below. Patient states she changed insurance. Can you investigate what pharmacy sheshould use? ASSESSOR * Telephone Encounter - Carlos Godwin - 07/07/2019 9:50 AM CITY ASSESSOR [facility] Call Center Phone Message May a detailed message be left on voicemail: yes Reason for Call: Other: Rahul calling to request a call back. She states she switched insurance to [employer] and pharmacies to [email or web address]. She would like to know if she's able to get her Aubagio. ([facility] , Phone# [phone]) Please call her back to discuss. Action Taken: Message routed to: [facility] neuro ASSESSOR * Telephone Encounter - Joy Guevara - 06/24/2019 9:33 AM CST Images from the original note were not included. Prior Authorization Approval Authorization Effective Date: 06/24/2019 Authorization Expiration Date: 06/24/2020 Medication: teriflunomide (AUBAGIO) 14 MG tablet Approved Dose/Quantity: 30 Reference #: [id number] Insurance Company: [employer] [phone] Which Pharmacy is filling the prescription (Not needed for infusion/clinic administered): [facility] [place] [id number] [employer]- no interruption in therapy - previous PA was good until 07/08/2019 ASSESSOR * Telephone Encounter - Joy Guevara - 06/23/2019 3:11 PM CST PA Initiation Medication: teriflunomide (AUBAGIO) 14 MG tablet Insurance Company: [employer] [phone] Pharmacy Filling the Rx: [facility] [employer] Filling Pharmacy Phone: Filling Pharmacy Fax: Start Date: 06/23/2019 Central Prior Authorization Team Filled out form and faxed it to [facility] fax# [phone] ASSESSOR * Telephone Encounter - Felicia Morin - 06/23/2019 10:20 AM CST Images from the original note were not included. ASSESSOR documented in this encounter Plan of Treatment Upcoming Encounters Date Type Department Care Team (Late st Contact Info) Description 05/26/2024 9:30 AM CITY ASSESSOR Office Visit [facility] Multiple Sclerosis [address] [address] Erick Hickman MD [address] [id number] [address] documented as of this encounter Visit Diagnoses Diagnosis Multiple sclerosis (H)- Primary Multiple sclerosis documented in this encounter Care Teams Micro Computer Data Processor Relationship Specialty Start Date End Date Jacobo Campos MD [facility] [address] [place] [address] PCP - General Internal Medicine 09/08/13 Guerita Holbrook, DIVINE Specialty Development Manager Neurology 06/22/15 02/28/21 Erick Hickman MD [address] [place], [place] [address], [place] [address] Assigned Neuroscience Provider 04/27/20 Boy Rousseau MD [address] [place], [place] [address], [place] [address] Assigned Surgical Provider 04/27/20 documented as of this encounter
--- OUTSIDE RECORDS SUMMARY | 2023-11-02 08:51 | XMS_ITS | Encounter Summary ---
Author Name Unknown Organization [facility] Address [address] [place] [address] Care Team Providers Care Manufacturers Representative Name Role Phone Jacobo Campos MD Primary Care Provider Guerita Holbrook RN Unavailable Erick Hickman MD Unavailable [phone] Boy Rousseau MD Unavailable Reason for Visit * Reason Onset Date Comments Patient Request 2019 Encounter Details Date Type Department Care Team (Late st Contact Info) Description 2019 Telephone [facility] [address] [address] Erick Hickman MD [address] [place] [address] - [id number] [place] [address] Patient Request Social History Tobacco [...] a PA. She states it is a [employer] vendor that send out the authorization. It is suppose to come from her primary care provider and MD performing procedure. Patient just wants to ensure that procedure will be covered. Message sent to Financial Counseling to see if they are able to assist. * Telephone Encounter - Michelle Obrien - 2019 9:27 AM CDT [facility] Phone Message May a detailed message be left on voicemail: yes Reason for Call: Other: Pt requesting a referral be sent to her insurance regarding a cerebral angiogram that she is having done on 10/04. Pt requesting call back to discuss Action Taken: Message routed to: [facility] ([facility]): neuro Travel Screening: Not Applicable documented in this encounter Plan of Treatment Upcoming Encounters Date Type Department Care Team (Late st Contact Info) Description 05/26/2024 9:30 AM ENTRY LEVEL CHEMIST Office Visit [facility] [address] [address] Erick Hickman MD [address] [place] [address] - [id number] [place] [address] documented as of this encounter Visit Diagnoses Not on filedocumented in this encounter Care Teams Manufacturers Representative Relationship Specialty Start Date End Date Jacobo Campos MD [facility] [address] [place] [address] PCP - General Internal Medicine 09/08/13 Guerita Holbrook, DIVINE Specialty Purse Framer Neurology 06/22/15 02/28/21 Erick Hickman MD [address] [facility] SE - [id number] [place] [address] Assigned Neuroscience Provider 04/27/20 Boy Rousseau MD [address] [facility] [id number] [place], [place] [address] Assigned Surgical Provider 04/27/20 documented as of this encounter
--- OUTSIDE RECORDS SUMMARY | 2023-11-02 08:51 | XMS_ITS | Encounter Summary ---
Author Name Unknown Organization [facility] Address [address] [place] [address] Care Team Providers Care Sap Mobility Architect Name Role Phone Jacobo Campos MD Primary Care Provider Guerita Holbrook RN Unavailable Erick Hickman MD Unavailable [phone] Boy Rousseau MD Unavailable [phone] Reason for Visit * Reason Onset Date Comments Orders 07/12/2019 MRI head, Spine Encounter Details Date Type Department Care Team (Late st Contact Info) Description 07/12/2019 Telephone [facility] S[facility] Clinic [address] [address] Erick Hickman MD [address] [place] [address] - [id number] [place] [address] Orders (MRI head, Spine) Social [...] Orders faxed. Patient made aware of this. S CONSULTANT INSURANCE * Telephone Encounter - Charley Horowitz RN - 07/12/2019 10:37 AM CST Patient is scheduled to see Dr. Hickman 08/18; per the last office note, MD would like MRI of brain and c-spine. Orders placed on behalf of MD. Once orders co-signed, will fax to [facility] (fax [phone]). S CONSULTANT INSURANCE * Telephone Encounter - Carlos Godwin - 07/12/2019 10:26 AM SALES CONSULTANT INSURANCE [facility] Call Center Phone Message May a detailed message be left on voicemail: yes Reason for Call: Order(s): Other: Reason for requested: MRI brain, spine Date needed: as soon as possible Provider name: Marylou Please send order to [place], [place] Action Taken: Message routed to: [facility] neuro S CONSULTANT INSURANCE documented in this encounter Plan of Treatment Upcoming Encounters Date Type Department Care Team (Late st Contact Info) Description 05/26/2024 9:30 AM SALES CONSULTANT INSURANCE Office Visit [facility] Multiple Sclerosis [address] [phone] Erick Hickman MD [address] [place] [address] - [id number] [place] [address] documented as of this encounter Visit Diagnoses Diagnosis Multiple sclerosis (H)- Primary Multiple sclerosis documented in this encounter Care Teams Sap Mobility Architect Relationship Specialty Start Date End Date Jacobo Campos MD [facility] [address] [place] [address] PCP - General Internal Medicine 09/08/13 Guerita Holbrook, RN Specialty Psychological Operations Neurology 06/22/15 02/28/21 Erick Hickman MD [address] [facility] SE - [id number] [place] [address] Assigned Neuroscience Provider 04/27/20 Boy Rousseau MD [address] [facility] [id number] [address] Assigned Surgical Provider 04/27/20 documented as of this encounter
--- OUTSIDE RECORDS SUMMARY | 2023-11-02 08:51 | XMS_ITS | Encounter Summary ---
Author Name Unknown Organization [facility] Address [address] [place] [address]. [place] [address] Care Team Providers Care Cold Rolling Machine Setter Name Role Phone Jacobo Campos MD Primary Care Provider Guerita Holbrook RN Unavailable Erick Hickman MD Unavailable [phone] Boy Rousseau MD Unavailable [phone] Reason for Visit * Reason Onset Date Comments Call Back 01/25/2020 Encounter Details Date Type Department Care Team (Late st Contact Info) Description 01/25/2020 [facility] Sclerosis Clinic [address] [phone] Erick Hickman MD [address] [place] [address] - [id number] [place], [place] [id number] Call Back Social History Tobacco Use Types [...] Pooja Aceves - 01/25/2020 8:54 AM CDT [facility] Call Center Phone Message May a detailed message be left on voicemail: yes Reason for Call: Other: Pt is at [facility], pt stateed she needs OK from Dr Melo Diaz to get MRIs done. Pt is requesting a call to the hospital for OK. She is there now. Action Taken: Message routed to: [facility] Neuro Travel Screening: Not Applicable documented in this encounter Plan of Treatment Upcoming Encounters Date Type Department Care Team (Late st Contact Info) Description 05/26/2024 9:30 AM YARN FINISHER Office Visit [facility] Multiple Sclerosis Clinic [address] [phone] Erick Hickman MD [address] [place] [address] documented as of this encounter Visit Diagnoses Not on filedocumented in this encounter Care Teams Cold Rolling Machine Setter Relationship Specialty Start Date End Date Jacobo Campos MD [facility] [address] [place] [address] PCP - General Internal Medicine 09/08/13 Guerita Holbrook, RN Specialty Nuclear Medicine Pet Ct Technologist Neurology 06/22/15 02/28/21 Erick Hickman MD [address] [place] [address] Assigned Neuroscience Provider 04/27/20 Boy Rousseau MD [address] [place] [address] [id number] [address] Assigned Surgical Provider 04/27/20 documented as of this encounter
--- OUTSIDE RECORDS SUMMARY | 2023-11-02 08:51 | XMS_ITS | Encounter Summary ---
Author Name Unknown Organization [facility] Address [address] [place] [address]. [place] [address] Care Team Providers Care Ring Sorter Name Role Phone Jacobo Campos MD Primary Care Provider Guerita Holbrook RN Unavailable Erick Hickman MD Unavailable [phone] Boy Rousseau MD Unavailable [phone] Encounter Details Date Type Department Care Team (Late st Contact Info) Description 08/15/[address] [facility] Sclerosis Clinic [address] [address] Erick Hickman MD [address] [place] [address] - [id number] [place] [address] Social History Tobacco Use Types [...] COVID-19? No / Unsure 08/16/2020 10:51 AM [employer]AST REG[employer] SALES MANAGER documented as of this encounter Miscellaneous Notes * Telephone Encounter - Sherri Ramirez MA - 08/15/2020 2:40 PM CST Called and informed patient, no MRI or labs needed before appointment per last OV 08/2019 Sherri Ramirez MA [employer] SALES MANAGER * Telephone Encounter - Kodak Oneill - 08/15/2020 2:13 PM CST [facility] Phone Message May a detailed message [...] Center ([facility]): Neuology Travel Screening: Not Applicable [employer] SALES MANAGER documented in this encounter Plan of Treatment Upcoming Encounters Date Type Department Care Team (Late st Contact Info) Description 05/26/2024 9:30 AM SOUTHEAST REGIONAL SALES MANAGER Office Visit [facility] Multiple Sclerosis [address] [phone] Erick Hickman MD [address] [place] [address] - [id number] [place] [address] documented as of this encounter Visit Diagnoses Not on filedocumented in this encounter Care Teams Ring Sorter Relationship Specialty Start Date End Date Jacobo Campos MD [facility] [address] [place] [address] PCP - General Internal Medicine 09/08/13 Guerita Holbrook, RN Specialty Civil Structural Designer Neurology 06/22/15 02/28/21 Erick Hickman MD [address] [place] [address] [id number] [place] [address] Assigned Neuroscience Provider 04/27/20 Boy Rousseau MD [address] [place], [place] [address], [place] [address] Assigned Surgical Provider 04/27/20 documented as of this encounter
--- OUTSIDE RECORDS SUMMARY | 2023-11-04 08:02 | XMS_ITS | Encounter Summary ---
Author Name Unknown Organization [facility] Address [address] [place] [address] Care Team Providers Care Sr. Consultant Name Role Phone Jacobo Campos MD Primary Care Provider Erick Hickman MD Unavailable [phone] Boy Rousseau MD Unavailable [phone] Encounter Details Date Type Department Care Team [...] st Contact Info) Description 05/26/2024 9:30 AM PSYCHIATRY ADULT PHYSICIAN Office Visit [facility] Multiple Sclerosis Clinic [address] [address] Erick Hickman MD [address] [place] [address] - [id number] [place], [place] 0245[address] documented as of this encounter Visit Diagnoses Not on filedocumented in this encounter Care Teams Sr. Consultant Relationship Specialty Start Date End Date Jacobo Campos MD [facility] [address] [place] [address] PCP - General Internal Medicine 09/08/13 Erick Hickman MD [address] [place] [address] - [id number], [place] 532[address] Assigned Neuroscience Provider 04/27/20 Boy Rousseau MD [address] [place], [place] [address], [place] [address] Assigned Surgical Provider 04/27/20 documented as of this encounter
--- OUTSIDE RECORDS SUMMARY | 2023-11-04 08:02 | XMS_ITS | Encounter Summary ---
Author Name Unknown Organization [facility] Address [address] [place] [address] Care Team Providers Care Client Insights Consultant Name Role Phone Jacobo Campos MD Primary Care Provider Erick Hickman MD Unavailable [phone] Boy Rousseau MD Unavailable Reason for Visit * Reason Comments Medication Refill Encounter Details Date Type Department Care Team (Late st Contact Info) Description [facility] [address] [address] Erick Hickman MD [address] [place] [address] - [id number] [place] [address] Medication Refill Social History Tobacco [...] overdue for appt. I have asked clinical trials assistant to contact pt tooffer follow-up. Racquel Whitt, RN documented in this encounter Plan of Treatment Upcoming Encounters Date Type Department Care Team (Late st Contact Info) Description 05/26/2024 9:30 AM CUSTOMER OPERATIONS ASSOCIATE Office Visit [facility] Multiple Sclerosis [address] [address] Erick Hickman MD [address] [place] [address] documented as of this encounter Visit Diagnoses Diagnosis Nonintractable headache, unspecified chronicity pattern, unspecified headache type documented in this encounter Care Teams Client Insights Consultant Relationship Specialty Start Date End Date Jacobo Campos MD [address] [address] PCP - General Internal Medicine 09/08/13 Erick Hickman MD [address] [place] [address] Assigned Neuroscience Provider 04/27/20 Boy Rousseau MD [address] [place], [place] [address], [place] [address] Assigned Surgical Provider 04/27/20 documented as of this encounter
--- OUTSIDE RECORDS SUMMARY | 2023-11-04 08:02 | XMS_ITS | Encounter Summary ---
Author Name Unknown Organization [facility] Address [address] [place] [address] Care Team Providers Care Fuel Attendant Name Role Phone Jacobo Campos MD Primary Care Provider Erick Hickman MD Unavailable [phone] Boy Rousseau MD Unavailable [phone] Encounter Details Date Type Department Care Team (Late Contact Info) Description 10/10/2023 MyC Medical Advice [facility] Multiple Sclerosis [address] [address] Erick Hickman MD [address] [place] [address] [id number] [place] [address] Social History Tobacco Use Types [...] (Late Contact Info) Description 05/26/2024 9:30 AM SUPERVISOR OPERATIONS Office Visit [facility] Multiple Sclerosis [address] [address] Erick Hickman MD [address] [place], [place] [address], [place] [address] documented as of this encounter Visit Diagnoses Not on filedocumented in this encounter Care Teams Fuel Attendant Relationship Specialty Start Date End Date Jacobo Campos MD [facility] [address] [place] [address] PCP - General Internal Medicine 09/08/13 Erick Hickman MD [address] [place] [address] Assigned Neuroscience Provider 04/27/20 Boy Rousseau MD [address] [place], [place] [address], [place] [address] Assigned Surgical Provider 04/27/20 documented as of this encounter
--- OUTSIDE RECORDS SUMMARY | 2023-11-04 08:02 | XMS_ITS | Encounter Summary ---
Author Name Unknown Organization [facility] Address [address] [place] [address]. [place] [address] Care Team Providers Care Metal Furniture Panel Coverer Name Role Phone Jacobo Campos MD Primary Care Provider Erick Hickman MD Unavailable Boy Rousseau MD Unavailable Reason for Visit * Reason Onset Date Comments MRA Order 10/14/2023 [facility] to request correction on MRA order Encounter Details Date Type Department Care Team (Late st Contact Info) Description 10/14/2023 [facility] [address] [place] [address] Erick Hickman MD [address] [place] [address] [id number] [place] [address] MRA Order ([facility] called to request correction on MRA order [...] 3:26 PM CDT Spoke with Denise at [facility]. Per their radiologist, only non- contrast MRA needed. Requesting new order for MRI w/o contrast. Routing request to Dr Hickman. Racquel Whitt RN * Telephone Encounter - Mellisa Gomez - 10/14/2023 2:15 PM CDT [facility] Phone Message May a detailed message be left on voicemail: yes Reason for Call: Denise from [facility] department called to request a correction on MRA order from , per Denise, protocol orders need only to say without contrast please re fax MRA order to: P# [phone] Action Taken: Message routed to: [facility] neurology Travel Screening: Not Applicable documented in this encounter Plan of Treatment Upcoming Encounters Date Type Department Care Team (Late st Contact Info) Description 05/26/2024 9:30 AM SCIENTIFIC LINGUIST Office Visit [facility] Multiple Sclerosis [address] [phone] Erick Hickman MD [address] [place] [address] - [id number] [place] [address] documented as of this encounter Visit Diagnoses Diagnosis Nonruptured cerebral aneurysm- Primary Cerebral aneurysm, nonruptured documented in this encounter Care Teams Metal Furniture Panel Coverer Relationship Specialty Start Date End Date Jacobo Campos MD [facility] [address] [place] [address] PCP - General Internal Medicine 09/08/13 Erick Hickman MD [address] [facility] [address] - [id number] [place] [address] Assigned Neuroscience Provider 04/27/20 Boy Rousseau MD [address] [facility] [id number] [place] [address] Assigned Surgical Provider 04/27/20 documented as of this encounter
--- OUTSIDE RECORDS SUMMARY | 2023-11-04 08:02 | XMS_ITS | Encounter Summary ---
Author Name Unknown Organization [facility] Address [address] [place] [address] Care Team Providers Care Resource Forester Name Role Phone Jacobo Campos MD Primary Care Provider Erick Hickman MD Unavailable Boy Rousseau MD Unavailable Reason for Visit * Reason Onset Date Comments Refill Request 10/16/2023 Tamsulosin Encounter Details Date Type Department Care Team (Late st Contact Info) Description 10/16/2023 Refill [facility] S[facility] [address] [phone] Erick Hickman MD [address] [place] [address] - [id number] [place] [address] Refill Request (Tamsulosin ) Social [...] CDT Received refill request for tamsulosin from [facility]; Patient was last seen in Octobernd has follow up appointment in May [address] Hickman. Refilled per MS refill protocol. Racquel Whitt RN documented in this encounter Plan of Treatment Upcoming Encounters Date Type Department Care Team (Late st Contact Info) Description 05/26/2024 9:30 AM BINDING NICKER Office Visit [facility] [address] [phone] Erick Hickman MD [address] [place] [address] documented as of this encounter Visit Diagnoses Diagnosis Neurogenic bladder Neurogenic bladder, NOS documented in this encounter Care Teams Resource Forester Relationship Specialty Start Date End Date Jacobo Campos MD [facility] [address] [place] [address] PCP - General Internal Medicine 09/08/13 Erick Hickman MD [address] [place] [address] Assigned Neuroscience Provider 04/27/20 Boy Rousseau MD [address] [place], [place] [address], [place] [address] Assigned Surgical Provider 04/27/20 documented as of this encounter
--- OUTSIDE RECORDS SUMMARY | 2023-11-04 08:02 | XMS_ITS | Referral Summary ---
Author Name Unknown Organization [facility] Address [address] [place] [address] Care Team Providers Care Leather Tanner Name Role Phone Jacobo Campos MD Primary Care Provider Erick Hickman MD Unavailable Boy Rousseau MD Unavailable [phone] Encounters Date Type Department Care Team Description 10/16/[address] [facility] [address] [phone] Erick Hickman MD Refill Request (Tamsulosin ) 10/14/[address] [facility] [address] [place] [address] Erick Hickman MD MRA Order ([facility] called to request correction on MRA order ) 10/10/[address] [facility] [address] [phone] Erick Hickman MD 10/08/[address] [facility] [address] [phone] Erick Hickman MD Orders ([facility] ) 10/08/2023 10:[address] [facility] [address] [place] [address] MS (multiple sclerosis) (H) 10/08/2023 Travel 10/08/2023 9:30 AM CDT Office Visit [facility] Multiple Sclerosis [address] [phone] Erick Hickman MD MS (multiple sclerosis) (H) (Primary Dx); Nonruptured cerebral aneurysm; Urinary hesitancy; Nonintractable episodic headache, unspecified headache type 09/28/[address] [facility] Multiple Sclerosis [address] [phone] Erick Hickman MD Refill Request (Tamsulosin 0.4mg ) 09/28/[address] [facility] Multiple Sclerosis [address] [phone] Erick Hickman MD Medication Refill from Last [...] ??C (97.8 ??F) 05/25/2020 8 :33 AM [facility] Respiratory Rate 16 05/25/2020 12:3 2 PM [facility] Oxygen Saturation 100% 10/08/2023 9:2 2 AM CDT Inhaled Oxygen Concentration - - Weight 68.9 kg (151 lb 12.8 oz) 10/08/2023 9:22 AM CDT with out shoes Height 170.2 cm (5' 7) 08/16/2020 10:5 6 AM [facility] Body Mass Index 23.78 08/16/2020 10:56 AM [facility] Plan of Treatment Upcoming Encounters Date Type Department Care Team (Late st Contact Info) Description 05/26/2024 9:30 AM [facility] Office Visit [facility] Multiple Sclerosis [address] [phone] Erick Hickman MD [address] [place] [address] - [id number] [place] [address] Medical Devices Implanted Type Area Rn Documentation Device Identifier Shelf Expiration Date Model / Serial / Lot Embolic Substance/Dev ice Web Sl 4x3-11/23/2019 Implanted:Qty : 1 on 11/23/2019 by Boy Rousseau MD Embolic Substance/D evice Right: Carotid MICROVENTION 02/18/2020 [id number] / / [id number] Stent Neuroform [place] 3x21- 0 Implanted:Qty : 1 on 11/23/2019 by Boy Rousseau MD Stent Right: Carotid CHAYITO 11/17/2023 [id number] / / [id number] Procedures Procedure Name Priority Date/Time Associated Diagnosis Comments CBC WITH PLATELETS & DIFFERENTIAL Routine 10/08/2023 10:20 AM CDT MS (multiple sclerosis) (H) CBC WITH PLATELETS AND DIFFERENTIAL Routine 10/08/2023 10:20 AM CDT MS (multiple sclerosis) (H) HEPATIC FUNCTION PANEL Routine 10/08/2023 10:20 AM CDT MS (multiple sclerosis) (H) BASIC METABOLIC PANEL Routine 05/23/2020 8:48 AM [facility] Intracranial aneurysm from Last 3 Months or Most Recently Relevant to Health Maintenance Results * CBC with platelets and differential (10/08/2023 10:20 AM CDT) [facility] WBC Count 4.6 4.0 - 11.0 10e3/uL 10/08/2023 10:24 AM CDT [facility] RBC Count 4.64 3.80 - 5.20 10e6/uL 10/08/2023 10:24 AM CDT [facility] Hemoglobin 13.3 11.7 - 15.7 g/dL 10/08/2023 10:24 AM CDT [facility] Hematocrit 40.6 35.0 - 47.0 % 10/08/2023 10:24 AM CDT [facility] MCV 88 78 - 100 fL 10/08/2023 10:24 AM CDT [facility] MCH 28.7 26.5 - 33.0 pg 10/08/2023 10:24 AM CDT [facility] MCHC 32.8 31.5 - 36.5 g/dL 10/08/2023 10:24 AM CDT [facility] RDW 14.6 10.0 - 15.0 % 10/08/2023 10:24 AM CDT [facility] Platelet Count 297 150 - 450 10e3/uL 10/08/2023 10:24 AM CDT [facility] % Neutrophils 55 % 10/08/2023 10:24 AM CDT [facility] % Lymphocytes 31 % 10/08/2023 10:24 AM CDT [facility] % Monocytes 12 % 10/08/2023 10:24 AM CDT [facility] % Eosinophils 1 % 10/08/2023 10:24 AM CDT [facility] % Basophils 1 % 10/08/2023 10:24 AM CDT [facility] % Immature Granulocytes 0 % 10/08/2023 10:24 AM CDT [facility] NRBCs per 100 WBC 0 <1 /100 024 10:24 AM CDT [facility] Absolute Neutrophils 2.5 1.6 - 8.3 10e3/uL 10/08/2023 10:24 AM CDT [facility] Absolute Lymphocytes 1.4 0.8 - 5.3 10e3/uL 10/08/2023 10:24 AM CDT [facility] Absolute Monocytes 0.5 0.0 - 1.3 10e3/uL 10/08/2023 10:24 AM CDT [facility] Absolute Eosinophils 0.0 0.0 - 0.7 10e3/uL 10/08/2023 10:24 AM CDT [facility] Absolute Basophils 0.0 0.0 - 0.2 10e3/uL 10/08/2023 10:24 AM CDT [facility] Absolute Immature Granulocytes 0.0 <=0.4 10e3/uL 10/08/2023 10:24 AM CDT [facility] Absolute NRBCs 0.0 10e3/uL 10/08/2023 10:24 AM CDT [facility] Blood STRUCTURE OF RIGHT UPPER LIMB / Unknown Venipuncture / Unknown 10/08/2023 10:20 AM CDT 10/08/2023 10:20 AM CDT Erick Hickman MD LAB - BLOOD ORDER ENZO [facility] [address] [facility] 1st [place] [address] * Hepatic panel (10/08/2023 10:20 AM CDT) Pathologist [facility] Protein Total 6.9 6.4 - 8.3 g/dL 10/08/2023 10:48 AM CDT [facility] Albumin 4.5 3.5 - 5.2 g/dL 10/08/2023 10:48 AM CDT [facility] Bilirubin Total 0.2 <=1.2 mg/dL 10/08/2023 10:48 AM CDT [facility] Alkaline Phosphatase 82 40 - 150 U/L 10/08/2023 10:48 AM CDT [facility] Comment:Reference intervals for this test were updated on 05/19/2023 to more accurately reflect our healthy population. There may be differences in the flagging of prior results with similar values performed with this method. Interpretation of those prior results can be made in the context of the updated reference intervals. AST 15 0 - 45 U/L 10/08/2023 10:48 AM CDT [facility] Comment:Reference intervals for this test were updated on 12/15/2022 to more accurately reflect our healthy population. There may be differences in the flagging of prior results with similar values performed with this method. Interpretation of those prior results can be made in the context of the updated reference intervals. ALT 17 0 - 50 U/L 10/08/2023 10:48 AM CDT [facility] Comment:Reference intervals for [...] - 0.30 mg/dL 10/08/2023 10:48 AM CDT [facility] Blood STRUCTURE OF RIGHT UPPER LIMB / Unknown Venipuncture / Unknown 10/08/2023 10:20 AM CDT 10/08/2023 10:20 AM CDT Erick Hickman MD LAB - BLOOD ORDER ENZO [facility] - [address] 1st [place] [address] * Basic metabolic panel FUTURE anytime (05/23/2020 8:48 AM [facility]) Sodium 141 133 - 144 mmol/L 05/23/2020 1:[address] [facility] Potassium 3.6 3.4 - 5.3 mmol/L 05/23/2020 1:58 PM [facility] Chloride 105 94 - 109 mmol/L 05/23/2020 1:58 PM [facility] Carbon Dioxide 27 20 - 32 mmol/L 05/23/2020 2:26 PM [facility] Anion Gap 9 3 - 14 mmol/L 05/23/2020 2:26 PM [facility] Glucose 87 70 - 99 mg/dL 05/23/2020 2:26 PM [facility] Urea Nitrogen 14 7 - 30 mg/dL 05/23/2020 2:26 PM [facility] Creatinine 0.73 0.52 - 1.04 mg/dL 05/23/2020 2:26 PM [facility] GFR Estimate >90 >60 mL/min/{1 .73_m2} 05/23/2020 2:26 PM [facility] Comment: Non GFR Calc Starting 06/22/2018, serum creatinine based estimated GFR (eGFR) will be calculated using the Chronic Kidney Disease Epidemiology Collaboration (CKD-EPI) equation. GFR Estimate If Black >90 >60 mL/min/{1 .73_m2} 05/23/2020 2:26 PM [facility] Comment: GFR Calc Starting 06/22/2018, serum creatinine based estimated GFR (eGFR) will be calculated using the Chronic Kidney Disease Epidemiology Collaboration (CKD-EPI) equation. Calcium 9.5 8.5 - 10.1 mg/dL 05/23/2020 2:26 PM [facility] Blood specimen (specimen) 05/23/2020 8:48 AM [facility] 05/23/2020 8:53 AM [facility] Lin Daily MD LAB - BLOOD ORDERABL ES [facility] [address] [address], [facility] [phone] [facility] [address] [place] [address] from Last 3 Months or Most Recently Relevant to Health Maintenance Care Teams Leather Tanner Relationship Specialty Start Date End Date Jacobo Campos MD [facility] [address] [place] [address] PCP - General Internal Medicine 09/08/13 Erick Hickman MD [address] [facility] - [id number] [address] Assigned Neuroscience Provider 04/27/20 Boy Rousseau MD [address] [place], [place] [id number], [place] [address] Assigned Surgical Provider 04/27/20
--- OUTSIDE RECORDS SUMMARY | 2023-11-04 08:02 | XMS_ITS | Clinical Summary ---
Author Name Unknown Organization [place] Address [address] [place] [address] Care Team Providers Care Fertilizer Loader Name Role Phone Jacobo Campos MD Primary Care Provider Erick Hickman MD Unavailable [phone] Boy Rousseau MD Unavailable [phone] Allergies Active Allergy Reactions Criticality Noted Date [...] Type Department Care Team Description 10/16/2023 Refill [facility] [address] [phone] Erick Hickman MD Refill Request (Tamsulosin ) 10/14/2023 Telephone [facility] [address] [place] [address] Erick Hickman MD MRA Order ([place] called to request correction on MRA order ) 10/10/2023 MyC Medical Advice [facility] [address] [phone] Erick Hickman MD 10/08/2023 10:15 AM CDT Lab [facility] [address] [place] [address] MS (multiple sclerosis) (H) 10/08/2023 9:30 AM CDT Office Visit [facility] [address] [phone] Erick Hickman MD MS (multiple sclerosis) (H) (Primary Dx); Nonruptured cerebral aneurysm; Urinary hesitancy; Nonintractable episodic headache, unspecified headache type 10/08/2023 Documentation Only [facility] [address] [phone] Erick Hickman MD Orders ([facility] ) 10/08/2023 Travel 09/28/2023 Refill [facility] [address] [phone] Erick Hickman MD Refill Request (Tamsulosin 0.4mg ) 09/28/2023 Refill [facility] [address] [phone] Erick Hickman MD Medication Refill from Last [...] ??C (97.8 ??F) 05/25/2020 8 :33 AM PINKED EDGE SEWING MACHINE OPERATOR Respiratory Rate 16 05/25/2020 12:3 2 PM PINKED EDGE SEWING MACHINE OPERATOR Oxygen Saturation 100% 10/08/2023 9:2 2 AM CDT Inhaled Oxygen Concentration - - Weight 68.9 kg (151 lb 12.8 oz) 10/08/2023 9:22 AM CDT with out shoes Height 170.2 cm (5' 7) 08/16/2020 10:5 6 AM PINKED EDGE SEWING MACHINE OPERATOR Body Mass Index 23.78 08/16/2020 10:56 AM PINKED EDGE SEWING MACHINE OPERATOR Plan of Treatment Upcoming Encounters Date Type Department Care Team (Late st Contact Info) Description 05/26/2024 9:30 AM PINKED EDGE SEWING MACHINE OPERATOR Office Visit [facility] [address] [phone] Erick Hickman MD [address] [place] [address] - [id number] [address] Health Maintenance Due Date Last Done Comments [...] this topic Medical Devices Implanted Type Area Food And Nutrition Supervisor Device Identifier Shelf Expiration Date Model / Serial / Lot Embolic Substance/Dev ice Web Sl 4x3-11/23/2019 Implanted:Qty : 1 on 11/23/2019 by Boy Rousseau MD Embolic Substance/D evice Right: Carotid MICROVENTION 02/18/2020 [id number] / / [id number] Stent Neuroform [place] 3x21- 0 Implanted:Qty : 1 on 11/23/2019 by Boy Rousseau MD Stent Right: Carotid CHAYITO 11/17/2023 [id number] / / [id number] Procedures Procedure Name Priority Date/Time Associated Diagnosis Comments CBC WITH PLATELETS & DIFFERENTIAL Routine 10/08/2023 10:20 AM CDT MS (multiple sclerosis) (H) CBC WITH PLATELETS AND DIFFERENTIAL Routine 10/08/2023 10:20 AM CDT MS (multiple sclerosis) (H) HEPATIC FUNCTION PANEL Routine 10/08/2023 10:20 AM CDT MS (multiple sclerosis) (H) BASIC METABOLIC PANEL Routine 05/23/2020 8:48 AM PINKED EDGE SEWING MACHINE OPERATOR Intracranial aneurysm from Last 3 Months or Most Recently Relevant to Health Maintenance Results * CBC with platelets and differential (10/08/2023 10:20 AM CDT) WBC Count 4.6 4.0 - 11.0 10e3/uL 10/08/2023 10:24 AM CDT [facility] RBC Count 4.64 3.80 - 5.20 10e6/uL 10/08/2023 10:24 AM CDT [facility] Hemoglobin 13.3 11.7 - 15.7 g/dL 10/08/2023 10:24 AM CDT [facility] Hematocrit 40.6 35.0 - 47.0 % 10/08/2023 10:24 AM CDT [facility] MCV 88 78 - 100 fL 10/08/2023 10:24 AM CDT [facility] MCH 28.7 26.5 - 33.0 pg 10/08/2023 10:24 AM CDT [facility] MCHC 32.8 31.5 - 36.5 g/dL 10/08/2023 10:24 AM CDT [facility] RDW 14.6 10.0 - 15.0 % 10/08/2023 10:24 AM CDT [facility] Platelet Count 297 150 - 450 10e3/uL 10/08/2023 10:24 AM CDT [facility] % Neutrophils 55 % 10/08/2023 10:24 AM CDT [facility] % Lymphocytes 31 % 10/08/2023 10:24 AM CDT [facility] % Monocytes 12 % 10/08/2023 10:24 AM CDT [facility] % Eosinophils 1 % 10/08/2023 10:24 AM CDT [facility] % Basophils 1 % 10/08/2023 10:24 AM CDT [facility] % Immature Granulocytes 0 % 10/08/2023 10:24 AM CDT [facility] NRBCs per 100 WBC 0 <1 /100 024 10:24 AM CDT [facility] Absolute Neutrophils 2.5 1.6 - 8.3 10e3/uL 10/08/2023 10:24 AM CDT [facility] Absolute Lymphocytes 1.4 0.8 - 5.3 10e3/uL 10/08/2023 10:24 AM CDT [facility] Absolute Monocytes 0.5 0.0 - 1.3 10e3/uL 10/08/2023 10:24 AM CDT [facility] Absolute Eosinophils 0.0 0.0 - 0.7 10e3/uL 10/08/2023 10:24 AM CDT [facility] Absolute Basophils 0.0 0.0 - 0.2 10e3/uL 10/08/2023 10:24 AM CDT [facility] Absolute Immature Granulocytes 0.0 <=0.4 10e3/uL 10/08/2023 10:24 AM CDT [facility] Absolute NRBCs 0.0 10e3/uL 10/08/2023 10:24 AM CDT [facility] Blood STRUCTURE OF RIGHT UPPER LIMB / Unknown Venipuncture / Unknown 10/08/2023 10:20 AM CDT 10/08/2023 10:20 AM CDT Erick Hickman MD LAB - BLOOD ORDER ENZO [facility] - [address] 1st [place] [address] * Hepatic panel (10/08/2023 10:20 AM CDT) Pathologist [facility] Protein Total 6.9 6.4 - 8.3 g/dL 10/08/2023 10:48 AM CDT [facility] Albumin 4.5 3.5 - 5.2 g/dL 10/08/2023 10:48 AM CDT [facility] Bilirubin Total 0.2 <=1.2 mg/dL 10/08/2023 10:48 AM CDT [facility] Alkaline Phosphatase 82 40 - 150 U/L 10/08/2023 10:48 AM CDT [facility] Comment:Reference intervals for this test were updated on 05/19/2023 to more accurately reflect our healthy population. There may be differences in the flagging of prior results with similar values performed with this method. Interpretation of those prior results can be made in the context of the updated reference intervals. AST 15 0 - 45 U/L 10/08/2023 10:48 AM CDT [facility] Comment:Reference intervals for this test were updated on 12/15/2022 to more accurately reflect our healthy population. There may be differences in the flagging of prior results with similar values performed with this method. Interpretation of those prior results can be made in the context of the updated reference intervals. ALT 17 0 - 50 U/L 10/08/2023 10:48 AM CDT [facility] Comment:Reference intervals for [...] - 0.30 mg/dL 10/08/2023 10:48 AM CDT [facility] Blood STRUCTURE OF RIGHT UPPER LIMB / Unknown Venipuncture / Unknown 10/08/2023 10:20 AM CDT 10/08/2023 10:20 AM CDT Erick Hickman MD LAB - BLOOD ORDER ENZO Performing Organization Address City/State/[facility] Co de Phone Number [facility] [address] 1st Floor [place] [address] * Basic metabolic panel FUTURE anytime (05/23/2020 8:48 AM PINKED EDGE SEWING MACHINE OPERATOR) Sodium 141 133 - 144 mmol/L 05/23/2020 1:58 PM [facility] Potassium 3.6 3.4 - 5.3 mmol/L 05/23/2020 1:58 PM [facility] Chloride 105 94 - 109 mmol/L 05/23/2020 1:58 PM [facility] Carbon Dioxide 27 20 - 32 mmol/L 05/23/2020 2:[address] [facility] Anion Gap 9 3 - 14 mmol/L 05/23/2020 2:[address] [facility] Glucose 87 70 - 99 mg/dL 05/23/2020 2:[address] [facility] Urea Nitrogen 14 7 - 30 mg/dL 05/23/2020 2:[address] [facility] Creatinine 0.73 0.52 - 1.04 mg/dL 05/23/2020 2:26 PM PINKED EDGE SEWING MACHINE OPERATOR [facility] GFR Estimate >90 >60 mL/min/{1 .73_m2} 05/23/2020 2:[address] [facility] Comment: Non GFR Calc Starting 06/22/2018, serum creatinine based estimated GFR (eGFR) will be calculated using the Chronic Kidney Disease Epidemiology Collaboration (CKD-EPI) equation. GFR Estimate If Black >90 >60 mL/min/{1 .73_m2} 05/23/2020 2:26 PM PINKED EDGE SEWING MACHINE OPERATOR [facility] Comment: GFR Calc Starting 06/22/2018, serum creatinine based estimated GFR (eGFR) will be calculated using the Chronic Kidney Disease Epidemiology Collaboration (CKD-EPI) equation. Calcium 9.5 8.5 - 10.1 mg/dL 05/23/2020 2:26 PM PINKED EDGE SEWING MACHINE OPERATOR [facility] Blood specimen (specimen) 05/23/2020 8:48 AM PINKED EDGE SEWING MACHINE OPERATOR 05/23/2020 8:53 AM PINKED EDGE SEWING MACHINE OPERATOR Lin Daily MD LAB - BLOOD ORDERABL ES [facility] [address] [place], [place] [address] [phone] [facility] [address], [place] [address] from Last 3 Months or Most Recently Relevant to Health Maintenance Care Teams Fertilizer Loader Relationship Specialty Start Date End Date Reister, Centeno Wade, MD [facility] [address] [place] [address] PCP - General Internal Medicine 09/08/13 Erick Hickman MD [address] [place] [address] - [id number], [place] [id number] Assigned Neuroscience Provider 04/27/20 Boy Rousseau MD [address] [place] [id number], [place] [id number] Assigned Surgical Provider 04/27/20
--- OUTSIDE RECORDS SUMMARY | 2023-11-04 08:02 | XMS_ITS | Encounter Summary ---
Author Name Unknown Organization [place] Address [address] [place] [address] Care Team Providers Care Telesales Advisor Name Role Phone Jacobo Campos MD Primary Care Provider Erick Hickman MD Unavailable [phone] Boy Rousseau MD Unavailable [phone] Reason for Referral * Diagnostic Imaging MRI (Routine) - Pending Review Specialty Diagnoses / Procedures [facility] To Contact Rad[facility]. Diagnoses Nonruptured cerebral aneurysm Procedures MRI Angiogram head w & w/o contrast Erick Hickman MD [address] [place] [address] Referral ID Status Reason Start Date Expiration Date V isits Requested Visits Authorized [id number] Pending Review 10/08/2023 10/07/2024 1 1 * Diagnostic Imaging MRI (Routine) - Pending Review Specialty Diagnoses / Procedures Referred By [facility] Referred To Contact Radiology. Diagnoses MS (multiple sclerosis) (H) Procedures MRI Cervical spine w & w/o contrast Erick Hickman MD [address] [place] [address] Referral ID Status Reason Start Date Expiration Date V isits Requested Visits Authorized [id number] Pending Review 10/08/2023 10/07/2024 1 1 * Diagnostic Imaging MRI (Routine) - Pending Review Specialty Diagnoses / Procedures Referred By Monica longoria Referred To Contact Radiology. Diagnoses MS (multiple sclerosis) (H) Procedures MR Brain w/o & w Contrast Erick Hickman MD [address] [place] [address] Referral ID Status Reason Start Date Expiration Date V isits Requested Visits Authorized [id number] Pending Review 10/08/2023 10/07/2024 1 1 Reason for Visit * Reason Comments MS RECHECK MS follow up Encounter Details Date Type Department Care Team (Late st Contact Info) Description 10/08/2023 9:30 AM CDT Office Visit [facility] [address] [phone] Erick Hickman MD [address] [place] [id number] MS (multiple sclerosis) (H) (Primary Dx); Nonruptured [...] Body Mass Index 23.78 08/16/2020 10:56 AM MARKET BASKET MAKER documented in this encounter Patient Instructions * Patient Instructions* Erick Hickman MD - 10/08/2023 9:30 AM CDT Continue teriflunomide 2. Continue tamsulosin for bladder symptoms and nortriptyline for headache 3. Blood tests today 4. We will send orders for MRI and MRA studies to [facility] to be done in about six months [...] work in June. 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 She is currently undergoing physical therapy at [facility] andis still on light duty, but [...] cautioned her to avoid frequent use of yusy-dkq-[id number] analgesics. Today, she reports that headaches are [...] MOTOR/CEREBELLAR: There is no appendicular ataxia on nhtrne-rh-gmpb testing. Rapid alternating movements are within normal [...] st Contact Info) Description 05/26/2024 9:30 AM MARKET BASKET MAKER Office Visit [facility] [address] [phone] Erick Hikcman MD [address] [place] [address] [id number] [place] [address] Scheduled Orders Name Type Priority Associated Diagnoses [...] * Hepatic panel (10/08/2023 10:20 AM CDT) [facility] Protein Total 6.9 6.4 - 8.3 g/dL 10/08/2023 10:48 AM CDT [facility] Albumin 4.5 3.5 - 5.2 g/dL 10/08/2023 10:48 AM CDT [facility] Bilirubin Total 0.2 <=1.2 mg/dL 10/08/2023 10:48 AM CDT [facility] Alkaline Phosphatase 82 40 - 150 U/L 10/08/2023 10:48 AM CDT [facility] Comment:Reference intervals for this test were updated on 05/19/2023 to more accurately reflect our healthy population. There may be differences in the flagging of prior results with similar values performed with this method. Interpretation of those prior results can be made in the context of the updated reference intervals. AST 15 0 - 45 U/L 10/08/2023 10:48 AM CDT [facility] Comment:Reference intervals for this test were updated on 12/15/2022 to more accurately reflect our healthy population. There may be differences in the flagging of prior results with similar values performed with this method. Interpretation of those prior results can be made in the context of the updated reference intervals. ALT 17 0 - 50 U/L 10/08/2023 10:48 AM CDT [facility] Comment:Reference intervals for [...] - 0.30 mg/dL 10/08/2023 10:48 AM CDT [facility] Blood STRUCTURE OF RIGHT UPPER LIMB / Unknown Venipuncture / Unknown 10/08/2023 10:20 AM CDT 10/08/2023 10:20 AM CDT Erick Hickman MD LAB - BLOOD ORDER ENZO [facility] [place] [address] [place] [address] 1st [place] [address] documented in this encounter Visit Diagnoses Diagnosis MS (multiple sclerosis) (H)- Primary Multiple sclerosis Nonruptured cerebral aneurysm Cerebral aneurysm, nonruptured Urinary hesitancy Nonintractable episodic headache, unspecified headache type documented in this encounter Care Teams Telesales Advisor Relationship Specialty Start Date End Date Jacobo Campos MD [address] [address] PCP - General Internal Medicine 09/08/13 Erick Hickman MD [address] [facility] [id number] [address] Assigned Neuroscience Provider 04/27/20 Boy Rousseau MD [address] [facility] [place] [address] Assigned Surgical Provider 04/27/20 documented as of this encounter
--- OUTSIDE RECORDS SUMMARY | 2023-11-04 08:02 | XMS_ITS | Encounter Summary ---
Author Name Unknown Organization [place] Address [address] [place] [address] Care Team Providers Care Pediatric Oncologist Name Role Phone Jacobo Campos MD Primary Care Provider Erick Hickman MD Unavailable [phone] Boy Rousseau MD Unavailable Reason for Visit * Reason Onset Date Comments Refill Request 09/28/2023 Tamsulosin 0.4mg Encounter Details Date Type Department Care Team (Late st Contact Info) Description 09/28/2023 Refill [facility] [address] [phone] Erick Hickman MD [address] [place] [address] - [id number] [address] Refill Request (Tamsulosin 0.4mg ) [...] overdue for appt. I have asked our manager clinical research to contact pt to offer follow-up. Racquel Whitt RN documented in this encounter Plan of Treatment Upcoming Encounters Date Type Department Care Team (Late st Contact Info) Description 05/26/2024 9:30 AM DISINTEGRATOR FEEDER Office Visit [facility] [address] [phone] Erick Hickman MD [address] [place] [address] documented as of this encounter Visit Diagnoses Diagnosis Neurogenic bladder Neurogenic bladder, NOS documented in this encounter Care Teams Pediatric Oncologist Relationship Specialty Start Date End Date Jacobo Campos MD [facility] [address] [place] [address] PCP - General Internal Medicine 09/08/13 Erick Hickman MD [address] [place] [address] Assigned Neuroscience Provider 04/27/20 Boy Rousseau MD [address] [place], [place] [address], [place] [address] Assigned Surgical Provider 04/27/20 documented as of this encounter
--- OUTSIDE RECORDS SUMMARY | 2023-11-04 08:02 | XMS_ITS | Encounter Summary ---
Author Name Unknown Organization [place] Address [address] [place] [address] Care Team Providers Care Plater Printed Circuit Board Panels Name Role Phone Jacobo Campos MD Primary Care Provider Erick Hickman MD Unavailable [phone] Boy Rousseau MD Unavailable [phone] Encounter Details Date Type Department Care Team (Late Contact Info) Description 04/30/2023 MyC Medical Advice [facility] [address] [place] [phone] Tamara Mccullough Social History Tobacco Use [...] (Late Contact Info) Description 05/26/2024 9:30 AM TRAINING INTERN Office Visit [facility] [address] [phone] Erick Hickman MD [address] [place] [address] - [id number] [place], [place] [id number] documented as of this encounter Visit Diagnoses Not on filedocumented in this encounter Care Teams Plater Printed Circuit Board Panels Relationship Specialty Start Date End Date Jacobo Campos MD [facility] [address] [place] [address] PCP - General Internal Medicine 09/08/13 Erick Hickman MD 9 [facility] [id number] [address] Assigned Neuroscience Provider 04/27/20 Boy Rousseau MD [address] [id number], [place] [address] Assigned Surgical Provider 04/27/20 documented as of this encounter
--- OUTSIDE RECORDS SUMMARY | 2023-11-04 08:02 | XMS_ITS | Encounter Summary ---
Author Name Unknown Organization [place] Address [address] [place] [address] Care Team Providers Care Search Engine Optimization Specialist Name Role Phone Jacobo Campos MD Primary Care Provider Erick Hickman MD Unavailable [phone] Boy Rousseau MD Unavailable [phone] Reason for Visit * Reason Onset Date Comments Medication Request 04/30/2023 teriflunomide (AUBAGIO) 14 MG tablet Encounter Details Date Type Department Care Team (Late st Contact Info) Description 04/30/2023 Telephone [facility] [address] [phone] Erick Hickman MD [address] [place] [address] - [id number] [place], [place] [id number] Medication Request (teriflunomide (AUBAGIO) 14 MG tablet [...] Violet Cai - 04/30/2023 4:09 PM CDT [facility] Center Phone Message May a detailed message be left on voicemail: yes Reason for Call: Medication Question or concern regarding medication Prescription Clarification Name of Medication: teriflunomide (AUBAGIO) 14 MG tablet Prescribing Provider: Dr. Hickman Pharmacy: [facility] What on the order needs clarification? Mikki from the [facility] specialty pharmacy is requesting the patients [...] st Contact Info) Description 05/26/2024 9:30 AM DITCHING MACHINE OPERATING ENGINEER Office Visit [facility] [address] [phone] Erick Hickman MD [address] [place] [address] documented as of this encounter Visit Diagnoses Diagnosis Multiple sclerosis (H) Multiple sclerosis documented in this encounter Care Teams Search Engine Optimization Specialist Relationship Specialty Start Date End Date Jacobo Campos MD [facility] [address] [place] [address] PCP - General Internal Medicine 09/08/13 Erick Hickman MD [address] [place] [address] Assigned Neuroscience Provider 04/27/20 Boy Rousseau MD [address] [place], [place] [address] [address] Assigned Surgical Provider 04/27/20 documented as of this encounter
--- OUTSIDE RECORDS SUMMARY | 2023-11-04 08:02 | XMS_ITS | Encounter Summary ---
Author Name Unknown Organization [facility] Address [address] [place] [address] Care Team Providers Care Construction Framer Name Role Phone Jacobo Campos MD Primary Care Provider Erick Hickman MD Unavailable [phone] Boy Rousseau MD Unavailable [phone] Encounter Details Date Type Department Care Team (Late Contact Info) Description 10/08/2023 10:[address] [facility] [address] 1st [place] [address] MS (multiple sclerosis) (H) Social [...] (Late Contact Info) Description 05/26/2024 9:30 AM NETWORK TECHNICIAN Office Visit [facility] [address] [address] Erick Hickman MD [address] [place] [address] - [id number] [place] [address] documented as of this encounter Procedures Procedure [...] - 11.0 10e3/uL 10/08/2023 10:24 AM CDT [facility] RBC Count 4.64 3.80 - 5.20 10e6/uL 10/08/2023 10:24 AM CDT [facility] Hemoglobin 13.3 11.7 - 15.7 g/dL 10/08/2023 10:24 AM CDT [facility] Hematocrit 40.6 35.0 - 47.0 % 10/08/2023 10:24 AM CDT [facility] MCV 88 78 - 100 fL 10/08/2023 10:24 AM CDT [facility] MCH 28.7 26.5 - 33.0 pg 10/08/2023 10:24 AM CDT [facility] MCHC 32.8 31.5 - 36.5 g/dL 10/08/2023 10:24 AM CDT [facility] RDW 14.6 10.0 - 15.0 % 10/08/2023 10:24 AM CDT [facility] Platelet Count 297 150 - 450 10e3/uL 10/08/2023 10:24 AM CDT [facility] % Neutrophils 55 % 10/08/2023 10:24 AM CDT [facility] % Lymphocytes 31 % 10/08/2023 10:24 AM CDT [facility] % Monocytes 12 % 10/08/2023 10:24 AM CDT [facility] % Eosinophils 1 % 10/08/2023 10:24 AM CDT [facility] % Basophils 1 % 10/08/2023 10:24 AM CDT [facility] % Immature Granulocytes 0 % 10/08/2023 10:24 AM CDT [facility] NRBCs per 100 WBC 0 <1 /100 024 10:24 AM CDT [facility] Absolute Neutrophils 2.5 1.6 - 8.3 10e3/uL 10/08/2023 10:24 AM CDT [facility] Absolute Lymphocytes 1.4 0.8 - 5.3 10e3/uL 10/08/2023 10:24 AM CDT [facility] Absolute Monocytes 0.5 0.0 - 1.3 10e3/uL 10/08/2023 10:24 AM CDT [facility] Absolute Eosinophils 0.0 0.0 - 0.7 10e3/uL 10/08/2023 10:24 AM CDT [facility] Absolute Basophils 0.0 0.0 - 0.2 10e3/uL 10/08/2023 10:24 AM CDT [facility] Absolute Immature Granulocytes 0.0 <=0.4 10e3/uL 10/08/2023 10:24 AM CDT [facility] Absolute NRBCs 0.0 10e3/uL 10/08/2023 10:24 AM CDT [facility] Blood STRUCTURE OF RIGHT UPPER LIMB / Unknown Venipuncture / Unknown 10/08/2023 10:20 AM CDT 10/08/2023 10:20 AM CDT Erick Hickman MD LAB - BLOOD ORDER ENZO [facility] [place] [address] [facility] 1st [place] [address] * Hepatic panel (10/08/2023 10:20 AM CDT) Protein Total 6.9 6.4 - 8.3 g/dL 10/08/2023 10:48 AM CDT [facility] Albumin 4.5 3.5 - 5.2 g/dL 10/08/2023 10:48 AM CDT [facility] Bilirubin Total 0.2 <=1.2 mg/dL 10/08/2023 10:48 AM CDT [facility] Alkaline Phosphatase 82 40 - 150 U/L 10/08/2023 10:48 AM CDT [facility] Comment:Reference intervals for this test were updated on 05/19/2023 to more accurately reflect our healthy population. There may be differences in the flagging of prior results with similar values performed with this method. Interpretation of those prior results can be made in the context of the updated reference intervals. AST 15 0 - 45 U/L 10/08/2023 10:48 AM CDT [facility] Comment:Reference intervals for this test were updated on 12/15/2022 to more accurately reflect our healthy population. There may be differences in the flagging of prior results with similar values performed with this method. Interpretation of those prior results can be made in the context of the updated reference intervals. ALT 17 0 - 50 U/L 10/08/2023 10:48 AM CDT [facility] Comment:Reference intervals for [...] - 0.30 mg/dL 10/08/2023 10:48 AM CDT [facility] Blood STRUCTURE OF RIGHT UPPER LIMB / Unknown Venipuncture / Unknown 10/08/2023 10:20 AM CDT 10/08/2023 10:20 AM CDT Erick Hickman MD LAB - BLOOD ORDER ENZO [facility] [place] [address] [place] [address] 1st [place] [address] documented in this encounter Visit Diagnoses Diagnosis MS (multiple sclerosis) (H) Multiple sclerosis documented in this encounter Care Teams Construction Framer Relationship Specialty Start Date End Date Jacobo Campos MD [facility] [address] [place] [address] PCP - General Internal Medicine 09/08/13 Erick Hickman MD [address] [place] [address] - [id number], [place] [address] Assigned Neuroscience Provider 04/27/20 Boy Rousseau MD [address] [place], [place] [id number], [place] [address] Assigned Surgical Provider 04/27/20 documented as of this encounter
--- OUTSIDE RECORDS SUMMARY | 2023-11-04 08:03 | XMS_ITS | Encounter Summary ---
Author Name Unknown Organization [facility] Address [address] [place] [address] Care Team Providers Care Trimmer And Borer Machine Operator Name Role Phone Jacobo Campos MD Primary Care Provider Erick Hickman MD Unavailable [phone] Boy Rousseau MD Unavailable Reason for Visit * Reason Onset Date Comments Appointment 06/04/2022 Encounter Details Date Type Department Care Team (Late st Contact Info) Description 06/04/2022 Telephone [facility] [address] [address] Boy Rousseau MD [address] [place] [address] [id number] [place] [address] Appointment Social History Tobacco Use [...] Visit with Dr. Rousseau . MRA PRIOR COM SPECIALIST documented in this encounter Plan of Treatment Upcoming Encounters Date Type Department Care Team (Late st Contact Info) Description 05/26/2024 9:30 AM TELECOM SPECIALIST Office Visit [facility] Multiple Sclerosis [address] [address] Erick Hickman MD [address] [place] [address] documented as of this encounter Visit Diagnoses Not on filedocumented in this encounter Care Teams Trimmer And Borer Machine Operator Relationship Specialty Start Date End Date Jacobo Campos MD [facility] [address] [place] [address] PCP - General Internal Medicine 09/08/13 Erick Hickman MD [address] [place] [address] Assigned Neuroscience Provider 04/27/20 Boy Rousseau MD [address] [place], [place] [id number] [address] Assigned Surgical Provider 04/27/20 documented as of this encounter
--- OUTSIDE RECORDS SUMMARY | 2023-11-04 08:03 | XMS_ITS | Encounter Summary ---
Author Name Unknown Organization [facility] Address [address] [place] [address] Care Team Providers Care Residential Pest Control Technician Name Role Phone Jacobo Campos MD Primary Care Provider Guerita Holbrook RN Unavailable Erick Hickman MD Unavailable [phone] Boy Rousseau MD Unavailable [phone] Encounter Details Date Type Department Care Team [...] Shoaib Garduno - 08/19/2012 1:15 PM CST Ornamental Metal Worker Helper: Shoaib Garduno Status: Final - Signature Encounter: 2012-08-19 13:15:00.000 Type: Neurology Letter [facility] [address] [address] August 19, 2012 Jacobo Campos M.D. [facility] [address] [place] [address] RE: Eliz Hartman : 1970 DHRUV: 08/19/2012 [...] she is going on a vacation to [place] soon. Current medications are Rebif, vitamin D, [...] Strength is normal. Sensory examination is intact. Itinkm-sm-gghu is done well. Her gait is normal, [...] aware of this while she is in [place]. She will continue to see me at least every six months. Sincerely, Shoaib Garduno MD Department of Neurology [facility] CLH:11 Electronically signed by:Shoaib Garduno M.D. Aug 19 2012 4:30PM FITNESS STUDIES TEACHER ESS STUDIES TEACHER documented in this encounter Plan of Treatment Upcoming Encounters Date Type Department Care Team (Late st Contact Info) Description 05/26/2024 9:30 AM FITNESS STUDIES TEACHER Office Visit [facility] Sclerosis [facility] [address] [address] Erick Hickman MD [address] [place], [place] [address] [address] documented as of this encounter Visit Diagnoses Not on filedocumented in this encounter Care Teams Residential Pest Control Technician Relationship Specialty Start Date End Date Jacobo Campos MD [address] [address] PCP - General Internal Medicine 09/08/13 Guerita Holbrook, RN Specialty Public Health Outreach Worker Neurology 06/22/15 02/28/21 Erick Hickman MD [address] [place], [place] [id number] [address] Assigned Neuroscience Provider 04/27/20 Boy Rousseau MD [address] [place], [place] [id number] [address] Assigned Surgical Provider 04/27/20 documented as of this encounter
--- OUTSIDE RECORDS SUMMARY | 2023-11-04 08:03 | XMS_ITS | Clinical Summary ---
Author Name Unknown Organization [facility] Address [place], [place] [address] Care Team Providers Care Receivables Specialist Name Role Phone Jacobo Campos MD [...] Type Department Care Team Description 09/28/2023 Telephone [facility] [address] [place] [phone] Yinka Fontenot MD Questions (CALL BACK ) 09/28/2023 [facility]phone [facility] [address] [place] [address] [place] [id number] Alecia Ramirez OD Error-please disregard 09/24/2023 9:00 AM CDT Ancillary Procedure [facility] [address] [place] [address] 09/24/2023 8:40 AM CDT Office Visit [facility] [address] [facility] [address] [place] [address] Yinka Fontenot MD Hip Pain/problem (EXTRUSION ENGINEER - left hip pain) 09/24/2023 Orders Only [facility] [address] [facility] [place] [address] Oneal Gamez MD <No scans attached> 09/24/2023 Travel 09/03/2023 Telephone [facility] [address] [facility] [place] [address] Oneal Gamez MD Questions 09/03/2023 Telephone [facility] [address] [place] [phone] Yinka Fontenot MD Appointment (WC - Left Hip and Groin Pain ) 09/01/2023 Telephone [facility] [address] [facility] [place] [address] Oneal Gamez MD Form (WORK ABILITY FORM/WORKERS COMP) 08/31/2023 Telephone [facility] [address] [place] [address] Oneal Gamez MD Results 08/27/2023 10:02 AM CLOTHES SHAKER - 08/27/2023 11:59 PM CLOTHES SHAKER Hospital Encounter [facility] [address] [facility] [place] [address] Oneal Gamez MD Lumbar radiculopathy; Lumbar disc herniation; Hip strain, left, initial encounter; Left groin pain 08/27/2023 Refill [facility] [address] [place] [address] Oneal Gamez MD Refill Request (Gabapentin) 08/27/2023 Travel 08/14/2023 Telephone [facility] [address] [place] [address] Oneal Gamez MD Questions 08/11/2023 Telephone [facility] [address] [facility] [place] [address] Oneal Gamez MD Questions (fax ) 08/10/2023 Telephone [facility] [address] [place] [address] Oneal Gamez MD Letter For Work (Updated Restrictions) 08/07/2023 Refill [facility] [address] [place] [address] Oneal Gamez MD Refill Request (Tizanidine) 08/06/2023 1:40 PM CLOTHES SHAKER Office Visit [facility] [address] [place] [place] [address] Oneal Gamez MD [facility] (Follow up work comp back, left [...] Comments Blood Pressure 111/78 08/06/2023 1:51 PM CLOTHES SHAKER Pulse 76 08/06/2023 1:51 PM CLOTHES SHAKER Temperature 37 ??C (98.6 ??F) 08/06/2023 1:51 PM CLOTHES SHAKER Respiratory Rate 16 09/02/2016 9:30 AM CLOTHES SHAKER Oxygen Saturation 100% 08/06/2023 1:51 PM CLOTHES SHAKER Inhaled Oxygen Concentration - - Weight 75.4 kg (166 lb 3.2 oz) 08/06/2023 1:51 P M CLOTHES SHAKER Height 170 cm (5' 6.93) 08/04/2016 9:28 AM CLOTHES SHAKER Body Mass Index 26.09 08/04/2016 9:28 AM CLOTHES SHAKER Plan of Treatment Health Maintenance Due Date [...] ARTHROGRAM HIP LEFT Routine 08/27/2023 11:14 AM CLOTHES SHAKER Lumbar radiculopathy Lumbar disc herniation Hip strain, left, initial encounter Left groin pain XR INJ CT/MR ARTHROGRAM HIP LEFT Routine 08/27/2023 10:45 AM CLOTHES SHAKER Lumbar radiculopathy Lumbar disc herniation Hip strain, left, initial encounter Left groin pain LEAD INFORMATICA DEVELOPER THIN PREP PAP SCREEN IMAGED Routine 05/21/2007 4:49 PM CLOTHES SHAKER Screening Malignant Neoplasms Cervix from Last 3 [...] This radiology exam was performed at the [facility] in the [facility] Radiology Department and interpreted by Yinka [...] MR ARTHROGRAM HIP LEFT (08/27/2023 11:14 AM CLOTHES SHAKER) Anatomical Region Laterality Modality HIPL Magnetic Resonan ce 08/27/2023 11:1 4 AM CLOTHES SHAKER Impressions 08/27/2023 1:38 PM CLOTHES SHAKER 1. ??Nondisplaced anterosuperior and posterosuperior acetabular labral tears. No paralabral cyst. 2. ??No focal full-thickness cartilage defect or subchondral marrow change of the left hip. 3. ??Mild proximal hamstring tendinosis. No tendon tear. Narrative 08/27/2023 1:38 PM CLOTHES SHAKER For Patients: As a result of the Cures Act, medical imaging exams and procedure reports are released immediately into your electronic medical record. You may view this report before your referring provider. If you have questions, please contact your health care provider. EXAM: MR ARTHROGRAM HIP LEFT LOCATION: [facility] DATE: 08/27/2023 INDICATION: Lumbar radiculopathy, lumbar [...] provider. EXAM: MR ARTHROGRAM HIP LEFT LOCATION: [facility] DATE: 08/27/2023 INDICATION: Lumbar radiculopathy, lumbar [...] thelabral cartilaginous junction (series 4 image 15). Gfbgldndwx-pcyiegyzxbw-chwlnw defect involving the posterosuperior labrum extendingposteriorly from [...] CT/MR ARTHROGRAM HIP LEFT (08/27/2023 10:45 AM CLOTHES SHAKER) Anatomical Region Laterality Modality HIPL Digital Radiogra phy, Computed Tomography Narrative 08/27/2023 12:53 PM CLOTHES SHAKER Indication: Left hip pain. Technique: Fluoroscopically-guided left [...] 11:11:35 AM Oneal Gamez MD FLUOROSCOPY * LEAD INFORMATICA DEVELOPER THIN PREP PAP SCREEN IMAGED (05/21/2007 4:49 PM CLOTHES SHAKER) CYTOLOGY ??CYTOPATHOLOGY REPORT ??[facility] [employer] ?? Status: Final Report ? [id number] ?? CLINICAL INFORMATION ?LMP ? : 05/02/07 ?Previous Pap Date ? : 2004 ?Previous PAP Dx ? : Negative for intraepithelial lesion or ?malignancy. ?Previous [place]/bx date : None ?Previous Colposcopy/Bx: None ?Hormone Usage ? : None ?Menstrual Status ?: Regular Periods ?Appearance of Cervix ??: NORMAL ?[place]/Bx done today ?: No ?HPV Request ? [...] 05/21/07 ?? ACCESSIONED: 05/21/07 ?? SIGNED: 06/07/07 [facility] Cervical (Cervical) 05/21/2007 4:49 PM CLOTHES SHAKER 05/21/2007 4:45 PM CLOTHES SHAKER Janeth Barrett NP PATHOLOGY/CYTOLOGY [facility] INTERNAL ZIP [address] [place] [address] from Last 3 Months or Most Recently Relevant to Health Maintenance Care Teams Receivables Specialist Relationship Specialty Start Date End Date Jacobo Campos MD [address] [place] [address] PCP - General Internal Medicine 10/25/21
--- OUTSIDE RECORDS SUMMARY | 2023-11-04 08:03 | XMS_ITS | Encounter Summary ---
Author Name Unknown Organization [facility] Address [address] [place] [address] Care Team Providers Care Blacking Machine Operator Name Role Phone Jacobo Campos MD Primary Care Provider Guerita Holbrook RN Unavailable Erick Hickman MD Unavailable [phone] Boy Rousseau MD Unavailable [phone] Reason for Visit * Reason Onset Date Comments Call Back 10/17/2020 Encounter Details Date Type Department Care Team (Late st Contact Info) Description 10/17/2020 Telephone [facility] S[facility] [address] [address] Erick Hickman MD [address] [place] [address] - [id number] [place] [address] Call Back Social History Tobacco [...] Olga Vargas - 10/17/2020 3:53 PM CDT [facility] Call Center Phone Message May a detailed message be left on voicemail: yes Reason for Call: Other: Patient calling looking to speak with care team of Dr. Hickman - statesat her provider in [place] is needing clarification/ confirmation if she is [...] st Contact Info) Description 05/26/2024 9:30 AM COLLEGE FOOTBALL COACH Office Visit [facility] [address] [address] Erick Hickman MD [address] [place] [address] - [id number] [place] [address] documented as of this encounter Visit Diagnoses Not on filedocumented in this encounter Care Teams Blacking Machine Operator Relationship Specialty Start Date End Date Jacobo Campos MD [facility] [address] [place] [address] PCP - General Internal Medicine 09/08/13 Guerita Holbrook, DIVINE Specialty Certified Orthotist/Pedorthist Neurology 06/22/15 02/28/21 Erick Hickman MD [address] [facility]121[place], [place] [address] Assigned Neuroscience Provider 04/27/20 Boy Rousseau MD [address] [place], [place] [address], [place] [address] Assigned Surgical Provider 04/27/20 documented as of this encounter
--- OUTSIDE RECORDS SUMMARY | 2023-11-04 08:03 | XMS_ITS | Encounter Summary ---
Author Name Unknown Organization [facility] Address [address] [place] [address]. [place] [address] Care Team Providers Care Baby Attendant Name Role Phone Jacobo Campos MD Primary Care Provider Guerita Holbrook RN Unavailable Erick Hickman MD Unavailable [phone] Boy Rousseau MD Unavailable [phone] Encounter Details Date Type Department Care Team (Late st Contact Info) Description 08/15/2020 Telephone [facility] Multiple Sclerosis Clinic [address] [address] Erick Hickman MD [address] [place] [address] - [id number] [place] [address] Social History Tobacco Use Types [...] COVID-19? No / Unsure 08/16/2020 10:51 AM REVERSE UNIT OPERATOR FISHERMAN documented as of this encounter Miscellaneous Notes * Telephone Encounter - Sherri Ramirez MA - 08/15/2020 2:40 PM CST Called and informed patient, no MRI or labs needed before appointment per last OV 08/2019 Sherri Ramirez MA RSE UNIT OPERATOR FISHERMAN * Telephone Encounter - [employer] - 08/15/2020 2:13 PM CST [facility] Phone Message May a detailed [...] Center ([facility]): Neuology Travel Screening: Not Applicable RSE UNIT OPERATOR FISHERMAN documented in this encounter Plan of Treatment Upcoming Encounters Date Type Department Care Team (Late st Contact Info) Description 05/26/2024 9:30 AM REVERSE UNIT OPERATOR FISHERMAN Office Visit [facility] Multiple Sclerosis [address] [phone] Erick Hickman MD [address] [place] [address] - [id number] [place] [address] documented as of this encounter Visit Diagnoses Not on filedocumented in this encounter Care Teams Baby Attendant Relationship Specialty Start Date End Date Jacobo Campos MD [facility] [address] [place] [address] PCP - General Internal Medicine 09/08/13 Guerita Holbrook, RN Specialty Surgery Scheduling Coordinator Neurology 06/22/15 02/28/21 Erick Hickman MD [address] [place] [address] [id number] [place] [address] Assigned Neuroscience Provider 04/27/20 Boy Rousseau MD [address] [place], [place] [address], [place] [address] Assigned Surgical Provider 04/27/20 documented as of this encounter
--- OUTSIDE RECORDS SUMMARY | 2023-11-04 08:03 | XMS_ITS | Encounter Summary ---
Author Name Unknown Organization [facility] Address [address] [place] [address] Care Team Providers Care Business Segment Manager Name Role Phone Jacobo Campos MD Primary Care Provider Guerita Holbrook RN Unavailable Erick Hickman MD Unavailable [phone] Boy Rousseau MD Unavailable [phone] Reason for Visit * Reason Onset Date Comments Call Back 10/17/2020 Encounter Details Date Type Department Care Team (Late st Contact Info) Description 10/17/2020 Telephone [facility] [address] [address] Boy Rousseau MD [address] [place] [address] [id number] [place], [place] [id number] Call Back Social History Tobacco Use Types [...] imaging report to Dr. Gamez at fax# [phone] Campos at fax# [phone]. No other questions or concerns at this time. * Telephone Encounter - Dian Gibbs RN - 10/18/2020 11:06 AM CDT Ok for MRI. Patient has Embolic Substance/Device WEB SL 4x3 and Neuroform Hulett Stent 3x21 placed 11/23/19. See implant information for details. * Telephone Encounter - Olga Vargas - 10/17/2020 3:49 PM CDT [facility] Phone Message May a detailed message be left on voicemail: yes Reason for Call: Other: Patient calling looking to speak with care team of Dr. Rousseau - states that her provider in [place] is needing clarification/ confirmation if she is able to get MRI on spine and brain and neck area. States that she is having back and spine issues. Please advise and call patient back at your earliest convenience to discuss further Action Taken: Other: [facility] Travel Screening: Not Applicable documented in this encounter Plan of Treatment Upcoming Encounters Date Type Department Care Team (Late st Contact Info) Description 05/26/2024 9:30 AM TRAVEL COUNSELOR AUTOMOBILE CLUB Office Visit [facility] Multiple Sclerosis Clinic [address] [address] Erick Hickman MD [address] [place] [address] - [id number] [place], [place] [address] documented as of this encounter Visit Diagnoses Not on filedocumented in this encounter Care Teams Business Segment Manager Relationship Specialty Start Date End Date Jacobo Campos MD [facility] [address] [place] [address] PCP - General Internal Medicine 09/08/13 Guerita Holbrook, RN Specialty Bus Cleaner Neurology 06/22/15 02/28/21 Erick Hickman MD [address] [place] [address] - [id number] [address] Assigned Neuroscience Provider 04/27/20 Boy Rousseau MD [address] [place], [place] [id number], [place] [address] Assigned Surgical Provider 04/27/20 documented as of this encounter
--- OUTSIDE RECORDS SUMMARY | 2023-11-04 08:03 | XMS_ITS | Encounter Summary ---
Author Name Unknown Organization [facility] Address [address] [place] [address] Care Team Providers Care Distribution Designer Name Role Phone Jacobo Campos MD Primary Care Provider Guerita Holbrook RN Unavailable Erick Hickman MD Unavailable [phone] Boy Rousseau MD Unavailable [phone] Reason for Visit * Reason Onset Date Comments Call Back 11/28/2020 medical card for flight Encounter Details Date Type Department Care Team (Late st Contact Info) Description 11/28/[address] [facility] Neurology Clinic [address] [address] Boy Rousseau MD [address] [place] [address] [id number] [place] [address] Call Back (medical card for [...] SUBSTANCE/DEVICE WEB SL 4X3 STENT NEUROFORM ATLAS [id number] 11/23/2019 documented in this encounter Miscellaneous Notes [...] Joselyn Everett - 11/28/2020 11:36 AM CDT [facility] Call Center Phone Message May a [...] st Contact Info) Description 05/26/2024 9:30 AM OFFAL SEPARATOR Office Visit [facility] Multiple Sclerosis Clinic [address] [address] Erick Hickman MD [address] [place] [address] - [id number] [place], [place] 889914 documented as of this encounter Visit Diagnoses Not on filedocumented in this encounter Care Teams Distribution Designer Relationship Specialty Start Date End Date Jacobo Campos MD [facility] [address] [place] [address] PCP - General Internal Medicine 09/08/13 Guerita Holbrook, RN Specialty Crochet Beader Neurology 06/22/15 02/28/21 Erick Hickman MD 9 [facility] - [id number] [address] Assigned Neuroscience Provider 04/27/20 Boy Rousseau MD [facility], [place] [address]6955 Assigned Surgical Provider 04/27/20 documented as of this encounter
--- OUTSIDE RECORDS SUMMARY | 2023-11-04 08:03 | XMS_ITS | Encounter Summary ---
Author Name Unknown Organization [facility] Address [address] [place] [address] Care Team Providers Care Training And Development Head Name Role Phone Jacobo Cmapos MD Primary Care Provider Erick Hickman MD Unavailable [phone] Boy Rousseau MD Unavailable Reason for Visit * Reason Onset Date Comments Medication Compliance Issues 03/31/2023 Cov erage exception form Encounter Details Date Type Department Care Team (Late st Contact Info) Description 03/31/[address] [facility] Multiple Sclerosis Clinic [address] [address] Erick Hickman MD [address] [place] [address] - [id number] [place] [address] Medication Compliance Issues (Coverage exception [...] Myesha Goodman - 03/31/2023 10:02 AM CDT [facility] Call Center Phone Message May a detailed message be left on voicemail: yes Reason for Call: Medication Question or concern regarding medication Prescription Clarification Name of Medication: teriflunomide (AUBAGIO) 14 MG tablet [[id number]] (Order [id number]) Prescribing Provider: Erick Hickman MD Pharmacy: NA What on the order needs clarification? Caller Stated the Pt would need a Coverage Exception letter in order to continue the process for the medication under the plan, the form can be filled out on [employer], the pts coverage ends April 05. Action Taken: Message routed to: [facility] Neurology Travel Screening: Not Applicable documented in this encounter Plan of Treatment Upcoming Encounters Date Type Department Care Team (Late st Contact Info) Description 05/26/2024 9:30 AM FORMAL WEAR RENTAL CLERK Office Visit [facility] Multiple Sclerosis Clinic [address] [phone] Erick Hickman MD [address] [place] [address] documented as of this encounter Visit Diagnoses Not on filedocumented in this encounter Care Teams Training And Development Head Relationship Specialty Start Date End Date Jacobo Campos MD [facility] [address] [place] [address] PCP - General Internal Medicine 09/08/13 Erick Hickman MD [address] [place] [address] Assigned Neuroscience Provider 04/27/20 Boy Rousseau MD [address] [place], [place] [address], [place] [address] Assigned Surgical Provider 04/27/20 documented as of this encounter
--- OUTSIDE RECORDS SUMMARY | 2023-11-04 08:03 | XMS_ITS | Encounter Summary ---
Author Name Unknown Organization [facility] Address [address] [place] [address] Care Team Providers Care Corporate Attorney Name Role Phone Jacobo Campos MD Primary Care Provider Guerita Holbrook RN Unavailable Erick Hickman MD Unavailable [phone] Boy Rousseau MD Unavailable [phone] Reason for Visit * Reason Onset Date Comments Orders 07/12/2019 MRI head, Spine Encounter Details Date Type Department Care Team (Late st Contact Info) Description 07/12/2019 Telephone [facility] Multiple Sclerosis Clinic [address] [address] Erick Hickman MD [address] [place] [address] - [id number] [place] [address] Orders (MRI head, Spine) Social [...] Orders faxed. Patient made aware of this. IFIED MIDWIFE * Telephone Encounter - Charley Horowitz RN - 07/12/2019 10:37 AM CST Patient is scheduled to see Dr. Hickman 08/18; per the last office note, MD would like MRI of brain and c-spine. Orders placed on behalf of MD. Once orders co-signed, will fax to [facility] (fax [phone]). IFIED MIDWIFE * Telephone Encounter - Carlos Godwin - 07/12/2019 10:26 AM CERTIFIED MIDWIFE [facility] Call Center Phone Message May a detailed message be left on voicemail: yes Reason for Call: Order(s): Other: Reason for requested: MRI brain, spine Date needed: as soon as possible Provider name: Marylou Please send order to [place], [place] Action Taken: Message routed to: [facility] neuro IFIED MIDWIFE documented in this encounter Plan of Treatment Upcoming Encounters Date Type Department Care Team (Late st Contact Info) Description 05/26/2024 9:30 AM CERTIFIED MIDWIFE Office Visit [facility] Multiple Sclerosis [address] [phone] Erick Hickman MD [address] [place] [address] - [id number] [place] [address] documented as of this encounter Visit Diagnoses Diagnosis Multiple sclerosis (H)- Primary Multiple sclerosis documented in this encounter Care Teams Corporate Attorney Relationship Specialty Start Date End Date Jacobo Campos MD [facility] [address] [place] [address] PCP - General Internal Medicine 09/08/13 Guerita Holbrook, RN Specialty Supervisor Intermediates Neurology 06/22/15 02/28/21 Erick Hickman MD 9 [facility] - [id number] [place] [address] Assigned Neuroscience Provider 04/27/20 Boy Rousseau MD 9 [facility] [id number] [address] Assigned Surgical Provider 04/27/20 documented as of this encounter
--- OUTSIDE RECORDS SUMMARY | 2023-11-04 08:03 | XMS_ITS | Encounter Summary ---
Author Name Unknown Organization [place] Address [address] [place] [address] Care Team Providers Care Ball Racker Name Role Phone Jacobo Campos MD Primary Care Provider Guerita Holbrook RN Unavailable Erick Hickman MD Unavailable [phone] Boy Rousseau MD Unavailable [phone] Reason for Visit * Reason Onset Date Comments Prior Auth - Medication 06/23/2019 teriflun omide (AUBAGIO) 14 MG tablet Call Back 06/23/2019 Encounter Details Date Type Department Care Team (Late st Contact Info) Description 06/23/2019 Telephone [facility] Multiple Sclerosis [address] [address] Erick Hickman MD [address] [place] [address] - [id number] [place], [place] 60[address] Prior Auth - Medication (teriflunomide (AUBAGIO) 14 [...] 1:20 PM CST Aubagio Rx sent to [facility]. INTERNAL MEDICINE * Telephone Encounter - Tamara Mccullough - 07/07/2019 1:01 PM CST Images from the original note were not included. I spoke with the patient and she can now fill with [facility]. I've already added her insurance through [facility] of [place] and obtained her copay card and added both to their system. A new RX for Aubagio will need to be sent to [facility] to initiate their new patient process. PDM Copay Card: [facility] [place] insurance: Thank you, Tamara Mccullough [facility] [address] [place] [address] [email or web address] INTERNAL MEDICINE * Telephone Encounter - Charley Horowitz RN - 07/07/2019 11:48 AM CST Tamara, please see below. Patient states she changed insurance. Can you investigate what pharmacy sheshould use? INTERNAL MEDICINE * Telephone Encounter - Carlos Godwin - 07/07/2019 9:50 AM RN INTERNAL MEDICINE [facility] Call Center Phone Message May a detailed message be left on voicemail: yes Reason for Call: Other: Rahul calling to request a call back. She states she switched insurance to [employer] and pharmacies to [facility]. She would like to know if she's able to get her Aubagio. ([facility] , Phone# [phone]) Please call her back to discuss. Action Taken: Message routed to: [facility] neuro INTERNAL MEDICINE * Telephone Encounter - Joy Guevara - 06/24/2019 9:33 AM CST Images from the original note were not included. Prior Authorization Approval Authorization Effective Date: 06/24/2019 Authorization Expiration Date: 06/24/2020 Medication: teriflunomide (AUBAGIO) 14 MG tablet Approved Dose/Quantity: 30 Reference #: [id number] Insurance Company: [employer] [phone] Which Pharmacy is filling the prescription (Not needed for infusion/clinic administered): [facility] [place] [id number] [email or web address] Renewal- no interruption in therapy - previous PA was good until 07/08/2019 INTERNAL MEDICINE * Telephone Encounter - Joy Guevara - 06/23/2019 3:11 PM CST PA Initiation Medication: teriflunomide (AUBAGIO) 14 MG tablet Insurance Company: [employer] [phone] Pharmacy Filling the Rx: [facility] Filling Pharmacy Phone: Filling Pharmacy Fax: Start Date: 06/23/2019 Central Prior Authorization Team Filled out form and faxed it to [facility] fax# [phone] INTERNAL MEDICINE * Telephone Encounter - Felicia Morin - 06/23/2019 10:20 AM CST Images from the original note were not included. INTERNAL MEDICINE documented in this encounter Plan of Treatment Upcoming Encounters Date Type Department Care Team (Late st Contact Info) Description 05/26/2024 9:30 AM RN INTERNAL MEDICINE Office Visit [facility] Multiple Sclerosis [address] [address] Erick Hickman MD [address] [facility] [address] documented as of this encounter Visit Diagnoses Diagnosis Multiple sclerosis (H)- Primary Multiple sclerosis documented in this encounter Care Teams Ball Racker Relationship Specialty Start Date End Date Jacobo Campos MD [facility] [address] [place] [address] PCP - General Internal Medicine 09/08/13 Guerita Holbrook, DIVINE Specialty Motor Vehicle Assembly Supervisor Neurology 06/22/15 02/28/21 Erick Hickman MD [address] [place], [place] [address] [address] Assigned Neuroscience Provider 04/27/20 Boy Rousseau MD [address] [place], [place] [address] [address] Assigned Surgical Provider 04/27/20 documented as of this encounter
--- OUTSIDE RECORDS SUMMARY | 2023-11-04 08:03 | XMS_ITS | Encounter Summary ---
Author Name Unknown Organization [facility] Address [address] [place] [address] Care Team Providers Care Clinical Asst Name Role Phone Jacobo Campos MD Primary Care Provider Guerita Holbrook RN Unavailable Erick Hickman MD Unavailable [phone] Boy Rousseau MD Unavailable [phone] Reason for Visit * Reason Onset Date Comments Refill Request 05/18/2019 AUBAGIO 14 MG ta blet Encounter Details Date Type Department Care Team (Late st Contact Info) Description 05/18/2019 [facility] Multiple Sclerosis Clinic [address] [address] Erick Hickman MD [address] [place] [address] - [id number] [place] [address] Refill Request (AUBAGIO 14 MG [...] this. No further needs at this time. RESSIONAL ASSISTANT * Telephone Encounter - Christopher De Anda - 05/18/2019 1:57 PM CST M [facility] Call Center Phone Message May a detailed message be left on voicemail: no Reason for Call: Medication Refill Request Has the patient contacted the pharmacy for the refill? Yes Name of medication being requested: AUBAGIO 14 MG tablet Provider who prescribed the medication: Dr. Hickman Pharmacy: [facility] Specialty Date medication is needed: Pt has [...] routed to: [facility] NEUROLOGY ADULT [facility] RESSIONAL ASSISTANT documented in this encounter Plan of Treatment Upcoming Encounters Date Type Department Care Team (Late st Contact Info) Description 05/26/2024 9:30 AM CONGRESSIONAL ASSISTANT Office Visit [facility] Multiple Sclerosis Clinic [address] [address] Erick Hickman MD [address] [place] [address] - [id number] [place] [address] documented as of this encounter Visit Diagnoses Diagnosis Multiple sclerosis (H) Multiple sclerosis documented in this encounter Care Teams Clinical Asst Relationship Specialty Start Date End Date Jacobo Campos MD [facility] [address] [place] [address] PCP - General Internal Medicine 09/08/13 Guerita Holbrook, RN Specialty Wire Weaver Cloth Neurology 06/22/15 02/28/21 Erick Hickman MD [address] [place] [address] - [id number] [place] [address] Assigned Neuroscience Provider 04/27/20 Boy Rousseau MD [address] [place], [place] [address], [place] 6[address]645 Assigned Surgical Provider 04/27/20 documented as of this encounter
--- OUTSIDE RECORDS SUMMARY | 2023-11-04 08:03 | XMS_ITS | Encounter Summary ---
Author Name Unknown Organization [facility] Address [address] [place] [address] Care Team Providers Care Cement Crusher Operator Name Role Phone Jacobo Campos MD Primary Care Provider Erick Hickman MD Unavailable Boy Rousseau MD Unavailable Reason for Visit * Reason Onset Date Comments Call Back 04/22/2023 Aubagio appeal Encounter Details Date Type Department Care Team (Late st Contact Info) Description 04/22/[address] [facility] Multiple Sclerosis Clinic [address] [address] Erick Hickman MD [address] [place] [address] - [id number] [place] [address] Call Back (Aubagio appeal ) [...] (AUBAGIO) 14 MG tablet. Eliz stated that [facility] stated that they did not receive theappeal on 04/16/23 for this medication and is requesting to resubmit the appeal to [facility]. Eliz is requesting a call to [facility] at to explain the reason she is needing to take teriflunomide (AUBAGIO) 14 MG tablet. Please call Eliz to discuss at your earliest convenience. Action Taken: Message routed to: [facility] ([facility]): MS Travel Screening: Not Applicable * Telephone Encounter - Suri Carr - 04/22/2023 12:45 PM CDT [facility] Call Center Phone Message May a detailed message be left on voicemail: yes Reason for Call: Other: Pt is requesting a call back in regards to the appeal with [facility] for her Aubagio medication. Pt states BS hasn't received the appeal. Please call pt back with update at # [phone] Action Taken: Message routed to: [facility] Neurology Travel Screening: Not Applicable documented in this encounter Plan of Treatment Upcoming Encounters Date Type Department Care Team (Late st Contact Info) Description 05/26/2024 9:30 AM CANDLE WRAPPER Office Visit [facility] Multiple Sclerosis [address] [address] Erick Hickman MD [address] [place] [address] - [id number] [place], [place] 4350[address] documented as of this encounter Visit Diagnoses Not on filedocumented in this encounter Care Teams Cement Crusher Operator Relationship Specialty Start Date End Date Jacobo Campos MD [facility] [address] [place] [address] PCP - General Internal Medicine 09/08/13 Erick Hickman MD [address] [place], [place] [address] [address] Assigned Neuroscience Provider 04/27/20 Boy Rousseau MD [address] [place], [place] [address], [place] [address] Assigned Surgical Provider 04/27/20 documented as of this encounter
--- OUTSIDE RECORDS SUMMARY | 2023-11-04 08:03 | XMS_ITS | Encounter Summary ---
Author Name Unknown Organization [facility] Address [address] [place] [address] Care Team Providers Care Wearing Apparel Assembler Name Role Phone Jacobo Campos MD Primary Care Provider Erick Hickman MD Unavailable [phone] Boy Rousseau MD Unavailable Reason for Visit * Reason Onset Date Comments Medication Question 04/10/2023 MS oral medi cation Encounter Details Date Type Department Care Team (Late st Contact Info) Description 04/10/2023 Telephone [facility] Multiple Sclerosis Clinic [address] [address] Erick Hickman MD [address] [place] [address] - [id number] [place] [address] Medication Question (MS oral medication [...] Violet Cai - 04/10/2023 9:39 AM CDT [facility] Call Center Phone Message May a [...] discuss. Please call patient and advise at [phone]. Action Taken: Message routed to: [facility] MS Neurology Travel Screening: Not Applicable documented in this encounter Plan of Treatment Upcoming Encounters Date Type Department Care Team (Late st Contact Info) Description 05/26/2024 9:30 AM BIOLOGY SPECIMEN TECHNICIAN Office Visit [facility] Multiple Sclerosis Clinic [address] [phone] Erick Hickman MD [address] [place] [address] documented as of this encounter Visit Diagnoses Not on filedocumented in this encounter Care Teams Wearing Apparel Assembler Relationship Specialty Start Date End Date Jacobo Campos MD [facility] [address] [place] [address] PCP - General Internal Medicine 09/08/13 Erick Hickman MD [address] [place] [address] Assigned Neuroscience Provider 04/27/20 Boy Rousseau MD [address] [place], [place] [address] [address] Assigned Surgical Provider 04/27/20 documented as of this encounter
--- OUTSIDE RECORDS SUMMARY | 2023-11-04 08:03 | XMS_ITS | Encounter Summary ---
Author Name Unknown Organization [facility] Address [address] [place] [address] Care Team Providers Care Supervisor Mapping Name Role Phone Jacobo Campos MD Primary Care Provider Guerita Holbrook RN Unavailable Erick Hickman MD Unavailable [phone] Boy Rousseau MD Unavailable [phone] Reason for Visit * Reason Onset Date Comments letter and symptoms 01/26/2020 update worka bility letter and discuss symptoms. Encounter Details Date Type Department Care Team ([facility] st Contact Info) Description 01/26/2020 Telephone [facility] Neurosurgery [address] [place] [address] 3rd [place] [address] Boy Rousseau MD [address] [place] [address] [id number] [place] [address] letter and symptoms (update workability [...] Jenae Oquendo Taken Imaging disc received from [facility] and sent to [facility] to be uploaded into PACs. 01/25/20 - Cervical Spine WO * Telephone Encounter - Charley Horowitz RN - 01/27/2020 3:37 PM CDT Called [facility] and they will fax c-spine MRI report from 01/24. They are unable to push images to [facility] and won't send a disc without an updated JED. I called the patient and she will call [facility] and have them release images. Report rec'd [...] primary care provider, Dr. Jacobo Campos at [facility]. Dr. Campos reportedly stated that patient has [...] and discuss MRI. * Patient will contact [facility] to have imaging sent/pushed to PACS Patient [...] at work. Fax number to [employer] [facility]: [phone] Please call once request is complete and to discuss. Action Taken: Other: [facility] NEUROSURGERy Travel Screening: Not Applicable documented in this encounter Plan of Treatment Upcoming Encounters Date Type Department Care Team (Late st Contact Info) Description 05/26/2024 9:30 AM HYDRATE THICKENER OPERATOR Office Visit [facility] Multiple Sclerosis Clinic [address] [phone] Erick Hickman MD [address] [place] [address] documented as of this encounter Visit Diagnoses Not on filedocumented in this encounter Care Teams Supervisor Mapping Relationship Specialty Start Date End Date Jacobo Campos MD [facility] [address] [place] [address] PCP - General Internal Medicine 09/08/13 Guerita Holbrook, DIVINE Specialty Air Conditioning Equipment Mechanic Neurology 06/22/15 02/28/21 Erick Hickman MD [address] [place] [address] Assigned Neuroscience Provider 04/27/20 Boy Rousseau MD [address] [facility] [id number] [place] [address] Assigned Surgical Provider 04/27/20 documented as of this encounter
--- OUTSIDE RECORDS SUMMARY | 2023-11-04 08:03 | XMS_ITS | Encounter Summary ---
Author Name Unknown Organization [place] Address [address] [place] [address]. [place] [address] Care Team Providers Care Plate Shop Helper Name Role Phone Jacobo Campos MD Primary Care Provider Guerita Holbrook RN Unavailable Erick Hickman MD Unavailable [phone] Boy Rousseau MD Unavailable [phone] Reason for Visit * Reason Onset Date Comments Call Back 01/25/2020 Encounter Details Date Type Department Care Team (Late st Contact Info) Description 01/25/2020 [facility] Multiple Sclerosis Clinic [address] [phone] Erick Hickman MD [address] [place] [address] - [id number] [place], [place] [id number] Call Back Social History Tobacco Use Types [...] Pooja Aceves - 01/25/2020 8:54 AM CDT [facility] Call Center Phone Message May [...] st Contact Info) Description 05/26/2024 9:30 AM SHIP WASHER Office Visit [facility] Multiple Sclerosis Clinic [address] [phone] Erick Hickman MD [address] [place] [address] documented as of this encounter Visit Diagnoses Not on filedocumented in this encounter Care Teams Plate Shop Helper Relationship Specialty Start Date End Date Jacobo Campos MD [facility] [address] [place] [address] PCP - General Internal Medicine 09/08/13 Guerita Holbrook, RN Specialty Watch Inspector Neurology 06/22/15 02/28/21 Erick Hickman MD [address] [place] [address] Assigned Neuroscience Provider 04/27/20 Boy Rousseau MD [address] [address] [id number], [place] [address] Assigned Surgical Provider 04/27/20 documented as of this encounter
--- OUTSIDE RECORDS SUMMARY | 2023-11-04 08:03 | XMS_ITS | Encounter Summary ---
Author Name Unknown Organization [place] Address [address] [place] [address] Care Team Providers Care Sales Analytics Manager Name Role Phone Jacobo Campos MD Primary Care Provider Guerita Holbrook RN Unavailable Erick Hickman MD Unavailable [phone] Boy Rousseau MD Unavailable Reason for Visit * Reason Onset Date Comments Patient Request 2019 Encounter Details Date Type Department Care Team (Late st Contact Info) Description 2019 Telephone [facility] [address] [address] Erick Hickman MD [address] [place] [address] - [id number] [place] [address] Patient Request Social History Tobacco [...] a PA. She states it is a [employer] vendor that send out the authorization. It is suppose to come from her primary care provider and MD performing procedure. Patient just wants to ensure that procedure will be covered. Message sent to Financial Counseling to see if they are able to assist. * Telephone Encounter - Michelle Obrien - 2019 9:27 AM CDT [facility] Center Phone Message May a detailed message be left on voicemail: yes Reason for Call: Other: Pt requesting a referral be sent to her insurance regarding a cerebral angiogram that she is having done on 10/04. Pt requesting call back to discuss Action Taken: Message routed to: [facility] ([facility]): neuro Travel Screening: Not Applicable documented in this encounter Plan of Treatment Upcoming Encounters Date Type Department Care Team (Late st Contact Info) Description 05/26/2024 9:30 AM BOILER OUT Office Visit [facility] [address] [address] Erick Hickman MD [address] [place] [address] - [id number] [place] [address] documented as of this encounter Visit Diagnoses Not on filedocumented in this encounter Care Teams Sales Analytics Manager Relationship Specialty Start Date End Date Jacobo Campos MD [facility] [address] [place] [address] PCP - General Internal Medicine 09/08/13 Guerita Holbrook, DIVINE Specialty Quality Control Projectionist Neurology 06/22/15 02/28/21 Erick Hickman MD [address] [facility] [address] - [id number] [place] [address] Assigned Neuroscience Provider 04/27/20 Boy Rousseau MD [address] [facility] [id number] [place], [place] 0330[address] Assigned Surgical Provider 04/27/20 documented as of this encounter
--- OUTSIDE RECORDS SUMMARY | 2023-11-04 08:03 | XMS_ITS | Encounter Summary ---
Author Name Unknown Organization [place] Address [address] [place] [address] Care Team Providers Care Registered Midwife Name Role Phone Jacobo Campos MD Primary Care Provider Erick Hickman MD Unavailable [phone] Boy Rousseau MD Unavailable Reason for Visit * Reason Onset Date Comments Prior Auth - Medication 03/09/2023 Aubagio (brand) 14MG Tablets (APPEAL DENIED) Encounter Details Date Type Department Care Team (Late st Contact Info) Description 03/09/2023 [facility] [address] [address] Erick Hickman MD [address] [place] [address] - [id number] [place] [address] Prior Auth - Medication (Aubagio [...] were not included. Aubagio appeal denial letter: ATTACHER * Telephone Encounter - Tamara Mccullough - 05/01/2023 10:43 AM CDT MEDICATION APPEAL DENIED Medication: AUBAGIO 14 MG PO TABS Insurance Company: [employer] Denial Date: 04/29/2023 Denial Rational: Must try/fail [...] faxed as well. Thank you, Tamara Mccullough [facility] Liaison - Cardiology Neurology [place] [email or web address] * Telephone Encounter - Tamara Mccullough - 04/23/2023 2:00 PM CDT Confirmed that the appeal was resent 04/16, but was closed because they thought it was a duplicate.I spoke with Gege in [facility] and she provided another fax number to resend the appeal request. [phone] also sent to [phone] Thank you, Tamara Mccullough [facility] Liaison - Cardiology Neurology [address] [address] [email or web address] * Telephone Encounter - Tamara Mccullough - 04/16/2023 12:05 PM CDT Resubmitted appeal with update date, denial letter from 04/08, and OV from 09/2022. Thank you, Tamara Mccullough [facility] Liaison - Cardiology Neurology Multiple Sclerosis [address] [address] [email or web address] * Telephone Encounter - Tamara Mccullough - 04/16/2023 10:50 AM CDT Spoke with [facility] Appeals and the outside dealer sales representative stated that since the appeal [...] the PA submission). Thank you, Tamara Mccullough [facility] Liaison - Cardiology Neurology Multiple Sclerosis [address] [address] [email or web address] * Telephone Encounter - Tamara Mccullough - 04/08/2023 12:43 PM CDT Medication Appeal Initiation Medication: AUBAGIO 14 MG PO TABS Appeal Start Date: 04/08/2023 Insurance Company: [facility] Insurance Insurance Comments: Faxed and email appeal letter to [facility] of [place] Thank you, Tamara Mccullough [facility] Liaison - Cardiology Neurology Multiple Sclerosis [address] [address] [email or web address] * Telephone Encounter - CelsoTamara mccoy - 04/08/2023 12:32 PM CDT Images from the original note were not included. PRIOR AUTHORIZATION DENIED Medication: AUBAGIO 14 MG PO TABS Insurance Company: [facility] - Denial Date: 04/06/2023 Denial Rational: Must try/fail 3 alternative products: Mavenclad, Avonex, Gilenya - Must fail one additional drug since patient has already tried REbif and Glatiramer Appeal Information: Patient Notified: Yes * Telephone Encounter - Celsonadine Tamara Iris - 04/06/2023 11:03 AM CDT Images from the original note were not included. PA Initiation Medication: AUBAGIO 14 MG PO TABS Insurance Company: [facility] - Pharmacy Filling the Rx: [facility] - [place], [place] - [address] Filling Pharmacy Phone: Filling Pharmacy Fax: Start Date: 04/06/2023 Thank you, Tamara Mccullough [facility] Liaison - Cardiology Neurology Multiple Sclerosis [address] [address] [email or web address] * Telephone Encounter - Erick Hickman MD [...] are: 1) To source this through the [facility] pharmacy (cost as noted) 2) Switch to leflunomide (generic, not specifically approved for MS and may not be covered by insurance but should have very similar effects as Aubagio--it is converted in the body to the active ingredient in Aubagio). Insurance may not cover for this indication, would be about $25/month through [employer] with a [employer] coupon. Other alternatives would include switching to a different medication or a trial off of disease modifying therapy. If she wants to discuss the latter two options she should make an appointment to discuss further. documented in this encounter Plan of Treatment Upcoming Encounters Date Type Department Care Team (Late st Contact Info) Description 05/26/2024 9:30 AM TRIM ATTACHER Office Visit [facility] [address] [address] Erick Hickman MD [address] [place] [address] - [id number] [place] [address] documented as of this encounter Visit Diagnoses Not on filedocumented in this encounter Care Teams Registered Midwife Relationship Specialty Start Date End Date Jacobo Campos MD [facility] [address] [place] [address] PCP - General Internal Medicine 09/08/13 Erick Hickman MD [address] - [id number] [place] [address] Assigned Neuroscience Provider 04/27/20 Boy Rousseau MD [address] [place], [place] [address], [place] [address] Assigned Surgical Provider 04/27/20 documented as of this encounter
--- OUTSIDE RECORDS SUMMARY | 2023-11-04 08:03 | XMS_ITS | Encounter Summary ---
Author Name Unknown Organization [place] Address [address] [place] [address] Care Team Providers Care Solar Sales Name Role Phone Jacobo Campos MD Primary Care Provider Guerita Holbrook RN Unavailable Erick Hickman MD Unavailable [phone] Boy Rousseau MD Unavailable [phone] Reason for Visit * Reason Onset Date Comments Appointment 12/08/2019 Upcoming appoint ment question Encounter Details Date Type Department Care Team (Late st Contact Info) Description 12/08/2019 Telephone [facility] Neuro[facility] [address] [facility] [address]rd [place] [address] Boy Rousseau MD [address] [place] [address] [id number] [place] [address] Appointment (Upcoming appointment question) Social [...] Antonina Torres - 12/08/2019 8:39 AM CDT [facility] Call Center Phone Message May a [...] st Contact Info) Description 05/26/2024 9:30 AM STRAP MACHINE OPERATOR Office Visit [facility] Multiple Sclerosis [address] [phone] Erick Hickman MD [address] [place] [address] - [id number] [place] [address] documented as of this encounter Visit Diagnoses Not on filedocumented in this encounter Care Teams Solar Sales Relationship Specialty Start Date End Date Jacobo Campos MD [facility] [address] [place] [address] PCP - General Internal Medicine 09/08/13 Guerita Holbrook, DIVINE Specialty Gallery Host Neurology 06/22/15 02/28/21 Erick Hickman MD [address] [facility] [id number] [address] Assigned Neuroscience Provider 04/27/20 Boy Rousseau MD [address] [place], [place] [address] [address] Assigned Surgical Provider 04/27/20 documented as of this encounter
--- NOTE | 2023-11-04 08:15 | MR_ITS ---
Patient: MERY COELHO Facility:?[facility] RIS Patient ID:?[id number] Site Patient ID:?[id number]. Site :?[id number] Study:?MRI-Head MRA W/WO-11/04/2023 10:11:44 AM Ordering Physician:?ELANA LUIS Final Report: EXAMINATION: MRA HEAD WITH AND WITHOUT CONTRAST DATE: 11/04/2023. HISTORY: Patient with known brain aneurysm. TECHNIQUE: 3D TOF and contrast-enhanced MRA of the head was performed. 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 There are no new aneurysms. The rest of the intracranial vasculature is unremarkable. IMPRESSION: 1. 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 2. 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 Alfred Valentin M.D. Neurointerventionalist [facility] Pager: Office/Appointments: Answering Service: [facility]: [email or web address] Dictated by: Alfred Valentin MD @ 11/06/2023 08:53:00 Signed by:?Alfred Valentin MD @11/06/2023 8:53:00 AM (Electronic Signature)
== END 2023-11-04 07:59 | disposition home or self-care (01) ==
LOC: MRI 07:58
PROVIDERS: PCP Internal Medicine; Visit Provider Internal Medicine
DX: I67.1 Cerebral aneurysm, nonruptured (principal)
CPT/HCPCS: 70546; A9575

== ENCOUNTER 2023-12-10 13:32 | Outpatient (CLI) | payer BC, SELFPAY ==
--- OUTSIDE RECORDS SUMMARY | 2023-12-28 08:38 | XMS_ITS | Encounter Summary ---
Author Organization [place] Address [address] [place] [address]. [place] [address] Care Team Providers Care Distribution Specialist Name Role Phone Jacobo Campos MD Primary Care Provider Erick Hickman MD Unavailable [phone] Boy Rousseau MD Unavailable [phone] Encounter Details Date Type Department Care Team (Late Contact Info) Description 04/30/2023 MyC Medical Advice [facility] [address] [place] [address] Tamara Mccullough Social History Tobacco Use [...] (Late Contact Info) Description 05/26/2024 9:30 AM INCLINED RAILWAY OPERATOR Office Visit [facility] S[facility] Clinic [address] [address] Erick Hickman MD [address] [place] [address] - [id number] [place] [address] documented as of this encounter Visit Diagnoses Not on filedocumented in this encounter Care Teams Distribution Specialist Relationship Specialty Start Date End Date Jacobo Campos MD [facility] [address] [place] [address] PCP - General Internal Medicine 09/08/13 Erick Hickman MD [address] [place], [place] [id number] [address] Assigned Neuroscience Provider 04/27/20 Boy Rousseau MD [address] [place], [place] [address], [place] [address] Assigned Surgical Provider 04/27/20 documented as of this encounter
--- OUTSIDE RECORDS SUMMARY | 2023-12-28 08:38 | XMS_ITS | Encounter Summary ---
Author Organization [place] Address [address] [place] [address]. [place] [address] Care Team Providers Care Bottle Feeder Name Role Phone Jacobo Campos MD Primary Care Provider Erick Hickman MD Unavailable [phone] Boy Rousseau MD Unavailable Reason for Visit * Reason Onset Date Comments Call Back 04/22/2023 Aubagio appeal Encounter Details Date Type Department Care Team (Late st Contact Info) Description 04/22/2023 Telephone [facility] [address] [address] Erick Hickman MD [address] [place] [address] - [id number] [place] [address] Call Back (Aubagio appeal ) [...] Chely Nunez - 04/23/2023 10:45 AM CDT M [facility] Center Phone Message May a detailed message be left on voicemail: yes Reason for Call: Eliz calling to request a call back due to her insurance will no longer cover teriflunomide (AUBAGIO) 14 MG tablet. Eliz stated that [facility] stated that they did not receive theappeal on 04/16/23 for this medication and is requesting to resubmit the appeal to [facility]. Eliz is requesting a call to Noveporter at to explain the reason she is needing to take teriflunomide (AUBAGIO) 14 MG tablet. Please call Eliz to discuss at your earliest convenience. Action Taken: Message routed to: [facility] MS Travel Screening: Not Applicable * Telephone Encounter - Suri Carr - 04/22/2023 12:45 PM CDT M [facility] Call [facility] Phone Message May a detailed message be left on voicemail: yes Reason for Call: Other: Pt is requesting a call back in regards to the appeal with [facility] for her Aubagio medication. Pt states BS hasn't received the appeal. Please call pt back with update at # [phone] Action Taken: Message routed to: [facility] ([facility]): Neurology Travel Screening: Not Applicable documented in this encounter Plan of Treatment Upcoming Encounters Date Type Department Care Team (Late st Contact Info) Description 05/26/2024 9:30 AM FOOTWEAR SALES ASSOCIATE Office Visit [facility] [address] [address] Erick Hickman MD [address] [place] [address] - [id number] [place], [place] [address] documented as of this encounter Visit Diagnoses Not on filedocumented in this encounter Care Teams Bottle Feeder Relationship Specialty Start Date End Date Jacobo Campos MD [facility] [address] [place] [address] PCP - General Internal Medicine 09/08/13 Erick Hickman MD [address] [facility]2121[place], [place] [address] Assigned Neuroscience Provider 04/27/20 Boy Rousseau MD [address] [place], [place] [id number], [place] [address] Assigned Surgical Provider 04/27/20 documented as of this encounter
--- OUTSIDE RECORDS SUMMARY | 2023-12-28 08:38 | XMS_ITS | Encounter Summary ---
Author Organization [place] Address [address] [place] [address] Care Team Providers Care C Software Developer Name Role Phone Jacobo Campos MD Primary Care Provider Erick Hickman MD Unavailable [phone] Boy Rousseau MD Unavailable [phone] Encounter Details Date Type Department Care Team [...] st Contact Info) Description 05/26/2024 9:30 AM FISHING VESSEL MATE Office Visit [facility] [address] [address] Erick Hickman MD [address] [place] [address] - [id number] [place], [place] [address] documented as of this encounter Visit Diagnoses Not on filedocumented in this encounter Care Teams C Software Developer Relationship Specialty Start Date End Date Jacobo Campos MD [facility] [address] [place] [address] PCP - General Internal Medicine 09/08/13 Erick Hickman MD [address] [facility] - [id number], [place] [address] Assigned Neuroscience Provider 04/27/20 Boy Rousseau MD [address] [place], [place] [id number], [place] [address] Assigned Surgical Provider 04/27/20 documented as of this encounter
--- OUTSIDE RECORDS SUMMARY | 2023-12-28 08:38 | XMS_ITS | Encounter Summary ---
Author Organization [place] Address [address] [place] [address]. [place] [address] Care Team Providers Care Sales Professional Name Role Phone Jacobo Campos MD Primary Care Provider Erick Hickman MD Unavailable [phone] Boy Rousseau MD Unavailable Reason for Visit * Reason Onset Date Comments Medication Question 04/10/2023 MS oral medi cation Encounter Details Date Type Department Care Team (Late st Contact Info) Description 04/10/[address] [facility] [address] [address] Erick Hickman MD [address] [place] [address] - [id number] [place] [address] Medication Question (MS oral medication [...] Violet Cai - 04/10/2023 9:39 AM CDT [facility] Call Center Phone Message May a [...] discuss. Please call patient and advise at [phone]. Action Taken: Message routed to: [facility] ([facility]): MS Neurology Travel Screening: Not Applicable documented in this encounter Plan of Treatment Upcoming Encounters Date Type Department Care Team (Late st Contact Info) Description 05/26/2024 9:30 AM ASSESSMENT NURSE Office Visit [facility] [address] [phone] Erick Hickman MD [address] [place] [address] documented as of this encounter Visit Diagnoses Not on filedocumented in this encounter Care Teams Sales Professional Relationship Specialty Start Date End Date Jacobo Campos MD [facility] [address] [place] [address] PCP - General Internal Medicine 09/08/13 Erick Hickman MD [address] [place] [address] Assigned Neuroscience Provider 04/27/20 Boy Rousseau MD [address] [place], [place] [id number] [address] Assigned Surgical Provider 04/27/20 documented as of this encounter
--- OUTSIDE RECORDS SUMMARY | 2023-12-28 08:38 | XMS_ITS | Encounter Summary ---
Author Organization [place] Address [address] [place] [address]. [place] [address] Care Team Providers Care Double Needle Operator Name Role Phone Jacobo Campos MD Primary Care Provider Erick Hickman MD Unavailable [phone] Boy Rousseau MD Unavailable [phone] Reason for Visit * Reason Comments Medication Refill Encounter Details Date Type Department Care Team (Late st Contact Info) Description 09/28/2023 [facility] [address] [address] Erick Hickman MD [address] [place] [address] - [id number] [place], [place] [id number] Medication Refill Social History Tobacco Use Types [...] overdue for appt. I have asked clinical laboratory science professor to contact pt tooffer follow-up. Racquel Whitt, RN documented in this encounter Plan of Treatment Upcoming Encounters Date Type Department Care Team (Late st Contact Info) Description 05/26/2024 9:30 AM CATALOGUE AND SPECIAL PRODUCTS MANAGER Office Visit [facility] [address] [address] Erick Hickman MD [address] [place] [address] documented as of this encounter Visit Diagnoses Diagnosis Nonintractable headache, unspecified chronicity pattern, unspecified headache type documented in this encounter Care Teams Double Needle Operator Relationship Specialty Start Date End Date Jacobo Campos MD [facility] [address] [place] [address] PCP - General Internal Medicine 09/08/13 Erick Hickman MD [address] [place] [address] Assigned Neuroscience Provider 04/27/20 Boy Rousseau MD [address] [place], [place] [id number], [place] [address] Assigned Surgical Provider 04/27/20 documented as of this encounter
--- OUTSIDE RECORDS SUMMARY | 2023-12-28 08:38 | XMS_ITS | Clinical Summary ---
Author Organization [facility] Address [address] [place] [address] Care Team Providers Care Dado Operator Name Role Phone Jacobo Campos MD Primary Care Provider Erick Hickman MD Unavailable [phone] Boy Rousseau MD Unavailable [phone] Allergies Active Allergy Reactions Criticality Noted Date Comments Glatiramer Other (See Comments) High 03/26/2015 Skin and fever Medications Medication Sig Dispensed Refills Start Date End Date Status Multiple Vitamins-Calcium (ONE-A-DAY WOMENS FORMULA PO) Take by mouth daily Active Cholecalciferol (VITAMIN D) 2000 UNITS CAPS Take 2,000 Units by mouth Active Calcium Carbonate-Vitamin D (CALCIUM + D [...] mild pain Active nortriptyline (PAMELOR) 25 MG capsuleIndications: Nonintractable headache, unspecified chronicity pattern, unspecified headache type Take two capsules at bedtime 180 capsule 3 09/25/2022 Active teriflunomide (AUBAGIO) 14 MG tabletIndications:M ultiple sclerosis (H) Take 1 tablet (14 mg) by mouth daily Only available through select specialty pharmacies 90 tablet 3 05/01/2023 Active tamsulosin (FLOMAX) 0.4 MG capsuleIndications: Neurogenic bladder Take 1 capsule (0.4 mg) by mouth daily 90 capsule 3 10/16/2023 Active Active Problems Problem Noted Date Diagnosed Date Intracranial aneurysm 11/23/2019 Leukopenia 01/25/2015 Multiple sclerosis 09/15/2013 Encounters Date Type Department Care Team Description 10/16/2023 Refill [facility] Multiple Sclerosis [address] [phone] Erick Hickman MD Refill Request (Tamsulosin ) 10/14/2023 Telephone [facility] [address] [place] [address] Erick Hickman MD MRA Order ([facility] called to request correction on MRA order ) 10/10/2023 MyC Medical Advice [facility] Multiple Sclerosis [address] [phone] Erick Hickman MD 10/08/2023 10:15 AM CDT Lab [facility] [address] [place] [address] MS (multiple sclerosis) (H) 10/08/2023 9:30 AM CDT Office Visit [facility] Multiple Sclerosis [address] [phone] Erick Hickman MD MS (multiple sclerosis) (H) (Primary Dx); Nonruptured cerebral aneurysm; Urinary hesitancy; Nonintractable episodic headache, unspecified headache type 10/08/2023 Documentation Only [facility] Multiple Sclerosis [address] [phone] Erick Hickman MD Orders ([facility] ) 10/08/2023 Travel 09/28/2023 Refill [facility] Multiple Sclerosis [address] [phone] Erick Hickman MD Refill Request (Tamsulosin 0.4mg ) 09/28/2023 Refill [facility] Multiple Sclerosis [address] [phone] Erick Hickman MD Medication Refill from Last [...] ??C (97.8 ??F) 05/25/2020 8 :33 AM RETAIL ASSISTANT STORE MANAGER Respiratory Rate 16 05/25/2020 12:3 2 PM RETAIL ASSISTANT STORE MANAGER Oxygen Saturation 100% 10/08/2023 9:2 2 AM CDT Inhaled Oxygen Concentration - - Weight 68.9 kg (151 lb 12.8 oz) 10/08/2023 9:22 AM CDT with out shoes Height 170.2 cm (5' 7) 08/16/2020 10:5 6 AM RETAIL ASSISTANT STORE MANAGER Body Mass Index 23.78 08/16/2020 10:56 AM RETAIL ASSISTANT STORE MANAGER Plan of Treatment Upcoming Encounters Date Type Department Care Team (Late st Contact Info) Description 05/26/2024 9:30 AM RETAIL ASSISTANT STORE MANAGER Office Visit [facility] Multiple Sclerosis [address] [phone] Erick Hickman MD [address] [facility] - [id number] [place], [place] [address] Health Maintenance Due Date Last Done Comments ANNUAL REVIEW OF HM ORDERS 1972 CT COLONOGRAPHY 1972 FIT 1972 FLEX SIG 1972 MAMMO SCREENING 1972 URINE DRUG SCREEN 1972 YEARLY PREVENTIVE VISIT 1972 sDNA (Cologuard) 1972 COVID-19 Vaccine (#1) 1977 Pneumococcal Vaccine: Pediatrics (0 to 5 Years) and At-Risk Patients (6 to 64 Years) (1 of 2 - PCV) 1978 IPV IMMUNIZATION (3 of 3 - 4-dose series) 07/14/1980 01/12/1980, 1972 COLONOSCOPY 1982 COLORECTAL CANCER SCREENING 1982 HIV SCREENING 09/21/1987 HEPATITIS C SCREENING 1990 HEPATITIS B IMMUNIZATION (1 of 3 - 19+ 3-dose series) 09/21/1991 ZOSTER IMMUNIZATION (1 of 2) 09/21/1991 PAP 1993 LIPID 2012 DTAP/TDAP/TD IMMUNIZATION (5 - Td or Tdap) 04/15/2021 04/15/2011, 01/15/1983, 01/12/1980, Additional history exists LUNG CANCER SCREENING 2022 GLUCOSE 05/23/2023 05/23/2020, 11/04, 11/23/2019 INFLUENZA VACCINE (Season Ended) 2024 05/04/2015, 05/10/2010 ADVANCE CARE PLANNING 11/23/2024 11/24/2019 PHQ-2 (once [...] this topic Medical Devices Implanted Type Area Mainspring Former Device Identifier Shelf Expiration Date Model / Serial / Lot Embolic Substance/Dev ice Web Sl 4x3-11/23/2019 Implanted:Qty : 1 on 11/23/2019 by Boy Rousseau MD Embolic Substance/D evice Right: Carotid MICROVENTION 02/18/2020 [id number] / / [id number] Stent Neuroform Patten 3x21- 0 Implanted:Qty : 1 on 11/23/2019 by Boy Rousseau MD Stent Right: Carotid CHAYTIO 11/17/2023 [id number] / / [id number] Procedures Procedure Name Priority Date/Time Associated Diagnosis Comments CBC WITH PLATELETS & DIFFERENTIAL Routine 10/08/2023 10:20 AM CDT MS (multiple sclerosis) (H) CBC WITH PLATELETS AND DIFFERENTIAL Routine 10/08/2023 10:20 AM CDT MS (multiple sclerosis) (H) HEPATIC FUNCTION PANEL Routine 10/08/2023 10:20 AM CDT MS (multiple sclerosis) (H) BASIC METABOLIC PANEL Routine 05/23/2020 8:48 AM RETAIL ASSISTANT STORE MANAGER Intracranial aneurysm from Last 3 Months or Most Recently Relevant to Health Maintenance Results * CBC with platelets and differential (10/08/2023 10:20 AM CDT) WBC Count 4.6 4.0 - 11.0 10e3/uL 10/08/2023 10:24 AM CDT [facility] RBC Count 4.64 3.80 - 5.20 10e6/uL 10/08/2023 10:24 AM CDT [facility] Hemoglobin 13.3 11.7 - 15.7 g/dL 10/08/2023 10:24 AM CDT [facility] Hematocrit 40.6 35.0 - 47.0 % 10/08/2023 10:24 AM CDT [facility] MCV 88 78 - 100 fL 10/08/2023 10:24 AM CDT [facility] MCH 28.7 26.5 - 33.0 pg 10/08/2023 10:24 AM CDT [facility] MCHC 32.8 31.5 - 36.5 g/dL 10/08/2023 10:24 AM CDT [facility] RDW 14.6 10.0 - 15.0 % 10/08/2023 10:24 AM CDT [facility] Platelet Count 297 150 - 450 10e3/uL 10/08/2023 10:24 AM CDT [facility] % Neutrophils 55 % 10/08/2023 10:24 AM CDT [facility] % Lymphocytes 31 % 10/08/2023 10:24 AM CDT [facility] % Monocytes 12 % 10/08/2023 10:24 AM CDT [facility] % Eosinophils 1 % 10/08/2023 10:24 AM CDT [facility] % Basophils 1 % 10/08/2023 10:24 AM CDT [facility] % Immature Granulocytes 0 % 10/08/2023 10:24 AM CDT [facility] NRBCs per 100 WBC 0 <1 /100 024 10:24 AM CDT [facility] Absolute Neutrophils 2.5 1.6 - 8.3 10e3/uL 10/08/2023 10:24 AM CDT [facility] Absolute Lymphocytes 1.4 0.8 - 5.3 10e3/uL 10/08/2023 10:24 AM CDT [facility] Absolute Monocytes 0.5 0.0 - 1.3 10e3/uL 10/08/2023 10:24 AM CDT [facility] Absolute Eosinophils 0.0 0.0 - 0.7 10e3/uL 10/08/2023 10:24 AM CDT [facility] Absolute Basophils 0.0 0.0 - 0.2 10e3/uL 10/08/2023 10:24 AM CDT [facility] Absolute Immature Granulocytes 0.0 <=0.4 10e3/uL 10/08/2023 10:24 AM CDT [facility] Absolute NRBCs 0.0 10e3/uL 10/08/2023 10:24 AM CDT [facility] Blood STRUCTURE OF RIGHT UPPER LIMB / Unknown Venipuncture / Unknown 10/08/2023 10:20 AM CDT 10/08/2023 10:20 AM CDT Erick Hickman MD LAB - BLOOD ORDER ENZO [facility] - [address] 1st [place] [address] * Hepatic panel (10/08/2023 10:20 AM CDT) Pathologist [facility] Protein Total 6.9 6.4 - 8.3 g/dL 10/08/2023 10:48 AM CDT [facility] Albumin 4.5 3.5 - 5.2 g/dL 10/08/2023 10:48 AM CDT [facility] Bilirubin Total 0.2 <=1.2 mg/dL 10/08/2023 10:48 AM CDT [facility] Alkaline Phosphatase 82 40 - 150 U/L 10/08/2023 10:48 AM CDT [facility] Comment:Reference intervals for this test were updated on 05/19/2023 to more accurately reflect our healthy population. There may be differences in the flagging of prior results with similar values performed with this method. Interpretation of those prior results can be made in the context of the updated reference intervals. AST 15 0 - 45 U/L 10/08/2023 10:48 AM CDT [facility] Comment:Reference intervals for this test were updated on 12/15/2022 to more accurately reflect our healthy population. There may be differences in the flagging of prior results with similar values performed with this method. Interpretation of those prior results can be made in the context of the updated reference intervals. ALT 17 0 - 50 U/L 10/08/2023 10:48 AM CDT [facility] Comment:Reference intervals for [...] - 0.30 mg/dL 10/08/2023 10:48 AM CDT [facility] Blood STRUCTURE OF RIGHT UPPER LIMB / Unknown Venipuncture / Unknown 10/08/2023 10:20 AM CDT 10/08/2023 10:20 AM CDT Erick Hickman MD LAB - BLOOD ORDER ENZO [facility] - [address] 1[address] [place] [address] * Basic metabolic panel FUTURE anytime (05/23/2020 8:48 AM RETAIL ASSISTANT STORE MANAGER) Sodium 141 133 - 144 mmol/L 05/23/2020 1:58 PM [facility] Potassium 3.6 3.4 - 5.3 mmol/L 05/23/2020 1:58 PM [facility] Chloride 105 94 - 109 mmol/L 05/23/2020 1:58 PM [facility] Carbon Dioxide 27 20 - 32 mmol/L 05/23/2020 2:26 PM [facility] Anion Gap 9 3 - 14 mmol/L 05/23/2020 2:26 PM [facility] Glucose 87 70 - 99 mg/dL 05/23/2020 2:26 PM [facility] Urea Nitrogen 14 7 - 30 mg/dL 05/23/2020 2:26 PM [facility] Creatinine 0.73 0.52 - 1.04 mg/dL 05/23/2020 2:26 PM [facility] GFR Estimate >90 >60 mL/min/{1 .73_m2} 05/23/2020 2:26 PM [facility] Comment: Non GFR Calc Starting 06/22/2018, serum creatinine based estimated GFR (eGFR) will be calculated using the Chronic Kidney Disease Epidemiology Collaboration (CKD-EPI) equation. GFR Estimate If Black >90 >60 mL/min/{1 .73_m2} 05/23/2020 2:26 PM [facility] Comment: GFR Calc Starting 06/22/2018, serum creatinine based estimated GFR (eGFR) will be calculated using the Chronic Kidney Disease Epidemiology Collaboration (CKD-EPI) equation. Calcium 9.5 8.5 - 10.1 mg/dL 05/23/2020 2:26 PM RETAIL ASSISTANT STORE MANAGER [facility] Blood specimen (specimen) 05/23/2020 8:48 AM RETAIL ASSISTANT STORE MANAGER 05/23/2020 8:53 AM RETAIL ASSISTANT STORE MANAGER Lin Daily MD LAB - BLOOD ORDERABL ES [facility] [address] [place] [address], [facility] [phone] [facility] [address] [place] [address] from Last 3 Months or Most Recently Relevant to Health Maintenance Care Teams Dado Operator Relationship Specialty Start Date End Date Jacobo Campos MD [facility] [address] [place] [address] PCP - General Internal Medicine 09/08/13 Erick Hickman MD [address] [place] [address] [id number], [place] [address] Assigned Neuroscience Provider 04/27/20 Boy Rousseau MD [address]09 [facility] [id number] [place] [address] Assigned Surgical Provider 04/27/20
--- OUTSIDE RECORDS SUMMARY | 2023-12-28 08:38 | XMS_ITS | Encounter Summary ---
Author Organization [facility] Address [address] [place] [address] Care Team Providers Care Developer Programmer Analyst Name Role Phone Jacobo Campos MD Primary Care Provider Erick Hickman MD Unavailable Boy Rousseau MD Unavailable [phone] Encounter Details Date Type Department Care Team (Late Contact Info) Description 10/10/2023 MyC Medical Advice [facility] Multiple Sclerosis [address] [place] [address] [phone] Erick Hickman MD [address] [place] [address] [id number] [place] [address] Social History Tobacco Use Types [...] (Late Contact Info) Description 05/26/2024 9:30 AM SEWER PIPE CLEANER Office Visit [facility] Multiple Sclerosis [address] [place] [address] [phone] Erick Hickman MD [address] [id number], [place] [address] documented as of this encounter Visit Diagnoses Not on filedocumented in this encounter Care Teams Developer Programmer Analyst Relationship Specialty Start Date End Date Jacobo Campos MD [facility] [address] [place] [address] PCP - General Internal Medicine 09/08/13 Erick Hickman MD [address] [place], [place] [address] [address] Assigned Neuroscience Provider 04/27/20 Boy Rousseau MD [address] [place], [place] [id number], [place] [address] Assigned Surgical Provider 04/27/20 documented as of this encounter
--- OUTSIDE RECORDS SUMMARY | 2023-12-28 08:38 | XMS_ITS | Encounter Summary ---
Author Organization [facility] Address [address] [place] [address] Care Team Providers Care Partner Marketing Manager Name Role Phone Jacobo Campos MD Primary Care Provider Erick Hickman MD Unavailable [phone] Boy Rousseau MD Unavailable [phone] Reason for Referral * Diagnostic Imaging MRI (Routine) - Pending Review Specialty Diagnoses / Procedures [facility] To Contact Radiology. Diagnoses Nonruptured cerebral aneurysm Procedures MRI Angiogram head w & w/o contrast Erick Hickman MD [address] [place] [address] Referral ID Status Reason Start Date Expiration Date V isits Requested Visits Authorized [id number] Pending Review 10/08/2023 10/07/2024 1 1 * Diagnostic Imaging MRI (Routine) - Pending Review Specialty Diagnoses / Procedures Referred By Contac t Referred To Contact Radiology. Diagnoses MS (multiple sclerosis) (H) Procedures MRI Cervical spine w & w/o contrast Erick Hickman MD [address] [place] [address] Referral ID Status Reason Start Date Expiration Date V isits Requested Visits Authorized [id number] Pending Review 10/08/2023 10/07/2024 1 1 * Diagnostic Imaging MRI (Routine) - Pending Review Specialty Diagnoses / Procedures Referred By Monica longoria Referred To Contact Radiology. Diagnoses MS (multiple sclerosis) (H) Procedures MR Brain w/o & w Contrast Erick Hickman MD [address] [place] [address] Referral ID Status Reason Start Date Expiration Date V isits Requested Visits Authorized [id number] Pending Review 10/08/2023 10/07/2024 1 1 Reason for Visit * Reason Comments MS RECHECK MS follow up Encounter Details Date Type Department Care Team (Late st Contact Info) Description 10/08/2023 9:30 AM CDT Office Visit [facility] [address] [phone] Erick Hickman MD [address] [place] [address] MS (multiple sclerosis) (H) (Primary Dx); Nonruptured [...] Body Mass Index 23.78 08/16/2020 10:56 AM 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 Continue tamsulosin for bladder symptoms and nortriptyline for headache 3. Blood tests today 4. We will send orders for MRI and MRA studies to [facility] to be done in about six [...] sclerosis History of the Present Illness: Ms. 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 Today, she denies any new episodic changes in vision, balance, strength or sensation suggestive of relapse of multiple sclerosis since her last visit to this clinic one year ago. She did, unfortunately, injure her left lower back and hip in an incident at work in June. 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 She is currently undergoing physical therapy at [facility] andis still on light duty, but [...] cautioned her to avoid frequent use of [id number]-[id number]-[id number] analgesics. Today, she reports that headaches are [...] MOTOR/CEREBELLAR: There is no appendicular ataxia on wdfdzn-pd-kjia testing. Rapid alternating movements are within normal [...] Vitals were taken and medications were reconciled. MARÍA Begmu 9:24 AM documented in this encounter Plan of Treatment Upcoming Encounters Date Type Department Care Team (Late st Contact Info) Description 05/26/2024 9:30 AM LOCAL COMPANY FLATBED TRUCK DRIVER Office Visit [facility] [address] [phone] Erick Hickman MD [address] [place] [address] [id number] [place] [address] Scheduled Orders Name Type Priority Associated Diagnoses [...] Hepatic panel (10/08/2023 10:20 AM CDT) Pathologist [facility] Protein Total 6.9 6.4 - 8.3 g/dL 10/08/2023 10:48 AM CDT [facility] Albumin 4.5 3.5 - 5.2 g/dL 10/08/2023 10:48 AM CDT [facility] Bilirubin Total 0.2 <=1.2 mg/dL 10/08/2023 10:48 AM CDT [facility] Alkaline Phosphatase 82 40 - 150 U/L 10/08/2023 10:48 AM CDT [facility] Comment:Reference intervals for this test were updated on 05/19/2023 to more accurately reflect our healthy population. There may be differences in the flagging of prior results with similar values performed with this method. Interpretation of those prior results can be made in the context of the updated reference intervals. AST 15 0 - 45 U/L 10/08/2023 10:48 AM CDT [facility] Comment:Reference intervals for this test were updated on 12/15/2022 to more accurately reflect our healthy population. There may be differences in the flagging of prior results with similar values performed with this method. Interpretation of those prior results can be made in the context of the updated reference intervals. ALT 17 0 - 50 U/L 10/08/2023 10:48 AM CDT [facility] Comment:Reference intervals for [...] - 0.30 mg/dL 10/08/2023 10:48 AM CDT [facility] Blood STRUCTURE OF RIGHT UPPER LIMB / Unknown Venipuncture / Unknown 10/08/2023 10:20 AM CDT 10/08/2023 10:20 AM CDT Erick Hickman MD LAB - BLOOD ORDER ENZO [facility] - [address] 1st Floor [place] [address] documented in this encounter Visit Diagnoses Diagnosis MS (multiple sclerosis) (H)- Primary Multiple sclerosis Nonruptured cerebral aneurysm Cerebral aneurysm, nonruptured Urinary hesitancy Nonintractable episodic headache, unspecified headache type documented in this encounter Care Teams Partner Marketing Manager Relationship Specialty Start Date End Date Jacobo Campos MD [address] [address] PCP - General Internal Medicine 09/08/13 Erick Hickman MD 909 [facility] - [id number] [address] Assigned Neuroscience Provider 04/27/20 Boy Rousseau MD 9 [facility] [id number] [place], [place] [address] Assigned Surgical Provider 04/27/20 documented as of this encounter
--- OUTSIDE RECORDS SUMMARY | 2023-12-28 08:38 | XMS_ITS | Encounter Summary ---
Author Organization [facility] Address [address] [place] [address]. [place] [address] Care Team Providers Care Associate Quality Engineer Name Role Phone Jacobo Campos MD Primary Care Provider Erick Hickman MD Unavailable [phone] Boy Rousseau MD Unavailable Reason for Visit * Reason Comments Orders [facility] Encounter Details Date Type Department Care Team (Latest Contact Info) Description 10/08/2023 Documentation Only [facility] [address] [phone] Erick Hickman MD [address] [place] [address] - [id number] [place] [address] Orders ([facility] ) Social History Tobacco Use Types [...] the head have been faxed over to [facility] at [phone]. Reinaldo Pavon EMT October 08, 2023 * Reinaldo Pavon - 10/08/2023 3:19 PM CDT Cervical spine MRI report received from [facility], reports placed in Dr. Hickman's folder for review and signature. Reinaldo Pavon EMT November 03, 2023 * Reinaldo Pavno - 10/08/2023 3:19 PM CDT Brain MRI has been received from [facility], report placed in Dr. Hickman's folder for review and signature. Reinaldo Pavon EMT November 06, 2023 documented in this encounter Plan of Treatment Upcoming Encounters Date Type Department Care Team (Late st Contact Info) Description 05/26/2024 9:30 AM DAY TRADER Office Visit [facility] [address] [phone] Erick Hickman MD [address] [place] [address] documented as of this encounter Visit Diagnoses Not on filedocumented in this encounter Care Teams Associate Quality Engineer Relationship Specialty Start Date End Date Jacobo Campos MD [facility] [address] [place] [address] PCP - General Internal Medicine 09/08/13 Erick Hickman MD [address] [place] [address] Assigned Neuroscience Provider 04/27/20 Boy Rousseau MD 909 [facility] [id number] [place] [address] Assigned Surgical Provider 04/27/20 documented as of this encounter
--- OUTSIDE RECORDS SUMMARY | 2023-12-28 08:38 | XMS_ITS | Encounter Summary ---
Author Organization [facility] Address [address] [place] [address] Care Team Providers Care Director [facility] Name Role Phone Jacobo Campos MD Primary Care Provider Erick Hickman MD Unavailable [phone] Boy Rousseau MD Unavailable [phone] Reason for Referral * Diagnostic Imaging MRI (Routine) - Pending Review Specialty Diagnoses / Procedures Referred By Monica longoria Referred To Contact Radiology. Diagnoses Nonruptured cerebral aneurysm Procedures MRA Brain ([place] [facility]) wo Contrast Erick Hickman MD [address] [place] [address] Referral ID Status Reason Start Date Expiration Date V isits Requested Visits Authorized [id number] Pending Review 11/05/2023 11/04/2024 1 1 Reason for Visit * Reason Onset Date Comments MRA Order 10/14/2023 [facility] christiana arellano to request correction on MRA order Encounter Details Date Type Department Care Team ([facility] st Contact Info) Description 10/14/2023 [facility] [address] 3rd [place] [address] Erick Hickman MD [address] [place] [address] MRA Order ([facility] called to request correction on MRA order [...] Telephone Encounter - Racquel Whitt RN - 11/05/2023 3:47 PM CDT MRI (b and c) and MRA images are now available in PACS. Racquel Whitt RN * Telephone Encounter - Racquel Whitt RN - 11/05/2023 12:51 PM CDT Called [facility]. They confirmed that MRI brain and cervical spine were completed on 11/01.Both reports received. Requested images be pushed to [facility]. MRA was completed yesterday 11/03. Report not yet available, but will be faxed to us once finalized, and images pushed. Racquel Whitt RN * Telephone Encounter - Racquel Whitt RN - 10/14/2023 3:26 PM CDT Spoke with Denise at [facility]. Per their radiologist, only non- contrast MRA needed. Requesting new order for MRI w/o contrast. Routing request to Dr Hickman. Racquel Whitt RN * Telephone Encounter - Mellisa Gomez - 10/14/2023 2:15 PM CDT [facility] Phone Message May a detailed message be left on voicemail: yes Reason for Call: Denise from [facility] Imaging department called to request a correction on MRA order from , per Denise, protocol orders need only to say without contrast please re fax MRA order to: P# [phone] Action Taken: Message routed to: [facility] neurology Travel Screening: Not Applicable documented in this encounter Plan of Treatment Upcoming Encounters Date Type Department Care Team (Late st Contact Info) Description 05/26/2024 9:30 AM APPEALS SPECIALIST Office Visit [facility] Multiple Sclerosis [address] [address] Erick Hickman MD [address] [place] [address] Scheduled Orders Name Type Priority Associated Diagnoses Orde r Schedule MRA Brain ([facility] [facility]) wo Contrast Imaging Routine Nonruptured cerebral aneurysm Expected: 11/05/2023 (Approximate), Expires: 11/04/2024 documented as of this encounter Visit Diagnoses Diagnosis Nonruptured cerebral aneurysm- Primary Cerebral aneurysm, nonruptured documented in this encounter Care Teams Director [facility] Relationship Specialty Start Date End Date Jacobo Campos MD [facility] [address] [place] [address] PCP - General Internal Medicine 09/08/13 Erick Hickman MD [address] [place] [address] Assigned Neuroscience Provider 04/27/20 Boy Rousseau MD [address] [place], [place] [id number] [address] Assigned Surgical Provider 04/27/20 documented as of this encounter
--- OUTSIDE RECORDS SUMMARY | 2023-12-28 08:38 | XMS_ITS | Encounter Summary ---
Author Organization [facility] Address [address] [place] [address]. [place] [address] Care Team Providers Care Dynamics Ax Developer Name Role Phone Jacobo Campos MD Primary Care Provider Erick Hickman MD Unavailable [phone] Boy Rousseau MD Unavailable Reason for Visit * Reason Onset Date Comments Refill Request 10/16/2023 Tamsulosin Encounter Details Date Type Department Care Team (Late st Contact Info) Description 10/16/2023 Refill [facility] Multiple Sclerosis Clinic [address] [address] Erick Hickman MD [address] [place] [address] - [id number] [address] Refill Request (Tamsulosin ) Social [...] CDT Received refill request for tamsulosin from [facility]; Patient was last seen in Octobernd has follow up appointment in May [address] Hickman. Refilled per [place] refill protocol. Racquel Whitt RN documented in this encounter Plan of Treatment Upcoming Encounters Date Type Department Care Team (Late st Contact Info) Description 05/26/2024 9:30 AM CORPORATE LEGAL ASSISTANT Office Visit [facility] Multiple Sclerosis Clinic [address] [phone] Erick Hickman MD [address] [place] [address] documented as of this encounter Visit Diagnoses Diagnosis Neurogenic bladder Neurogenic bladder, NOS documented in this encounter Care Teams Dynamics Ax Developer Relationship Specialty Start Date End Date Jacobo Campos MD [facility] [address] [place] [address] PCP - General Internal Medicine 09/08/13 Erick Hickman MD [address] [place], [place] [address], [place] [address] Assigned Neuroscience Provider 04/27/20 Boy Rousseau MD [address] [place], [place] [address], [place] [address] Assigned Surgical Provider 04/27/20 documented as of this encounter
--- OUTSIDE RECORDS SUMMARY | 2023-12-28 08:38 | XMS_ITS | Encounter Summary ---
Author Organization [place] Address [address] [place] [address]. [place] [address] Care Team Providers Care Ophthalmology Surgical Technician Name Role Phone Jacobo Campos MD Primary Care Provider Erick Hickman MD Unavailable [phone] Boy Rousseau MD Unavailable [phone] Encounter Details Date Type Department Care Team (Late st Contact Info) Description 10/08/2023 10:15 AM CDT Lab [facility] Lab [address] 1st [place] [address] MS (multiple sclerosis) (H) Social [...] (Late Contact Info) Description 05/26/2024 9:30 AM TUMBLE TAILSTOCK TURRET LATHE OPERATOR Office Visit [facility] Multiple Sclerosis Clinic [address] [address] Erick Hickman MD [address] [place] [address] - [id number] [place] [address] documented as of this encounter Procedures Procedure [...] - 11.0 10e3/uL 10/08/2023 10:24 AM CDT [facility] [place] RBC Count 4.64 3.80 - 5.20 10e6/uL 10/08/2023 10:24 AM CDT [facility] [place] Hemoglobin 13.3 11.7 - 15.7 g/dL 10/08/2023 10:24 AM CDT [facility] [place] Hematocrit 40.6 35.0 - 47.0 % 10/08/2023 10:24 AM CDT [facility] [place] MCV 88 78 - 100 fL 10/08/2023 10:24 AM CDT [facility] [place] MCH 28.7 26.5 - 33.0 pg 10/08/2023 10:24 AM CDT [facility] [place] MCHC 32.8 31.5 - 36.5 g/dL 10/08/2023 10:24 AM CDT [facility] [place] RDW 14.6 10.0 - 15.0 % 10/08/2023 10:24 AM CDT [facility] [place] Platelet Count 297 150 - 450 10e3/uL 10/08/2023 10:24 AM CDT [facility] [place] % Neutrophils 55 % 10/08/2023 10:24 AM CDT [facility] [place] % Lymphocytes 31 % 10/08/2023 10:24 AM CDT [facility] [place] % Monocytes 12 % 10/08/2023 10:24 AM CDT [facility] [place] % Eosinophils 1 % 10/08/2023 10:24 AM CDT [facility] [place] % Basophils 1 % 10/08/2023 10:24 AM CDT [facility] [place] % Immature Granulocytes 0 % 10/08/2023 10:24 AM CDT [facility] [place] NRBCs per 100 WBC 0 <1 /100 024 10:24 AM CDT [facility] [place] Absolute Neutrophils 2.5 1.6 - 8.3 10e3/uL 10/08/2023 10:24 AM CDT [facility] [place] Absolute Lymphocytes 1.4 0.8 - 5.3 10e3/uL 10/08/2023 10:24 AM CDT [facility] [place] Absolute Monocytes 0.5 0.0 - 1.3 10e3/uL 10/08/2023 10:24 AM CDT [facility] [place] Absolute Eosinophils 0.0 0.0 - 0.7 10e3/uL 10/08/2023 10:24 AM CDT [facility] [place] Absolute Basophils 0.0 0.0 - 0.2 10e3/uL 10/08/2023 10:24 AM CDT [facility] [place] Absolute Immature Granulocytes 0.0 <=0.4 10e3/uL 10/08/2023 10:24 AM CDT [facility] [place] Absolute NRBCs 0.0 e3/uL 10/08/2023 10:24 AM CDT [facility] [place] Blood STRUCTURE OF RIGHT UPPER LIMB / Unknown Venipuncture / Unknown 10/08/2023 10:20 AM CDT 10/08/2023 10:20 AM CDT Erick Hickman MD LAB - BLOOD ORDER ENZO [facility] [place] [place] [address] [facility] 1st [place] [address] * Hepatic panel (10/08/2023 10:20 AM CDT) Protein Total 6.9 6.4 - 8.3 g/dL 10/08/2023 10:48 AM CDT [facility] [place] Albumin 4.5 3.5 - 5.2 g/dL 10/08/2023 10:48 AM CDT [facility] [place] Bilirubin Total 0.2 <=1.2 mg/dL 10/08/2023 10:48 AM CDT [facility] [place] Alkaline Phosphatase 82 40 - 150 U/L 10/08/2023 10:48 AM CDT [facility] [place] Comment:Reference intervals for this test were updated on 05/19/2023 to more accurately reflect our healthy population. There may be differences in the flagging of prior results with similar values performed with this method. Interpretation of those prior results can be made in the context of the updated reference intervals. AST 15 0 - 45 U/L 10/08/2023 10:48 AM CDT [facility] [place] Comment:Reference intervals for this test were updated on 12/15/2022 to more accurately reflect our healthy population. There may be differences in the flagging of prior results with similar values performed with this method. Interpretation of those prior results can be made in the context of the updated reference intervals. ALT 17 0 - 50 U/L 10/08/2023 10:48 AM CDT [facility] [place] Comment:Reference intervals for [...] - 0.30 mg/dL 10/08/2023 10:48 AM CDT [facility] [place] Blood STRUCTURE OF RIGHT UPPER LIMB / Unknown Venipuncture / Unknown 10/08/2023 10:20 AM CDT 10/08/2023 10:20 AM CDT Erick Hickman MD LAB - BLOOD ORDER ENZO [facility] [place] - [address] 1st [place] [address] documented in this encounter Visit Diagnoses Diagnosis MS (multiple sclerosis) (H) Multiple sclerosis documented in this encounter Care Teams Ophthalmology Surgical Technician Relationship Specialty Start Date End Date Jacobo Campos MD [facility] [address] [place] [address] PCP - General Internal Medicine 09/08/13 Erick Hickman MD [address] [place] [address] - [id number], [place] [address] Assigned Neuroscience Provider 04/27/20 Boy Rousseau MD [address] [place], [place] [address], [place] [address] Assigned Surgical Provider 04/27/20 documented as of this encounter
--- OUTSIDE RECORDS SUMMARY | 2023-12-28 08:38 | XMS_ITS | Encounter Summary ---
Author Organization [facility] Address [address] [place] [address]. [place] [address] Care Team Providers Care Diabetes Nurse Name Role Phone Jacobo Campos MD Primary Care Provider Erick Hickman MD Unavailable Boy Rousseau MD Unavailable Reason for Visit * Reason Onset Date Comments Medication Compliance Issues 03/31/2023 Cov erage exception form Encounter Details Date Type Department Care Team (Late st Contact Info) Description 03/31/2023 [facility] [address] [address] Erick Hickman MD [address] [place] [address] - [id number] [address] Medication Compliance Issues (Coverage exception [...] Myesha Goodman - 03/31/2023 10:02 AM CDT [facility] Phone Message May a detailed message be left on voicemail: yes Reason for Call: Medication Question or concern regarding medication Prescription Clarification Name of Medication: teriflunomide (AUBAGIO) 14 MG tablet [[id number]] (Order [id number]) Prescribing Provider: Erick Hickman MD Pharmacy: NA What on the order needs clarification? Caller Stated the Pt would need a Coverage Exception letter in order to continue the process for the medication under the plan, the form can be filled out on [employer], the pts coverage ends April 05. Action Taken: Message routed to: [facility] Neurology Travel Screening: Not Applicable documented in this encounter Plan of Treatment Upcoming Encounters Date Type Department Care Team (Late st Contact Info) Description 05/26/2024 9:30 AM SUPPLY PLANNER Office Visit [facility] Multiple Sclerosis [address] [phone] Erick Hickman MD [address] [place] [address] documented as of this encounter Visit Diagnoses Not on filedocumented in this encounter Care Teams Diabetes Nurse Relationship Specialty Start Date End Date Jacobo Campos MD [facility] [address] [place] [address] PCP - General Internal Medicine 09/08/13 Erick Hickman MD [address] [place] [address] Assigned Neuroscience Provider 04/27/20 Boy Rousseau MD [address] [place], [place] [id number] [address] Assigned Surgical Provider 04/27/20 documented as of this encounter
--- OUTSIDE RECORDS SUMMARY | 2023-12-28 08:38 | XMS_ITS | Encounter Summary ---
Author Organization [facility] Address [address] [place] [address]. [place] [address] Care Team Providers Care Lapping Machine Tender Name Role Phone Jacobo Campos MD Primary Care Provider Erick Hickman MD Unavailable Boy Rousseau MD Unavailable Reason for Visit * Reason Onset Date Comments Appointment 06/04/2022 Encounter Details Date Type Department Care Team (Late st Contact Info) Description 06/04/2022 Telephone [facility] [address] [place] [address] Boy Rousseau MD [address] [place] [address] [id number] [place] [address] Appointment Social History Tobacco Use [...] encounter Miscellaneous Notes * Telephone Encounter - DebbieRaissa gonzalez - 06/04/2022 6:59 AM CST Defer scheduling- 2yr follow up- Video Visit with Dr. Rousseau . MRA PRIOR N RESOURCES PARTNER documented in this encounter Plan of Treatment Upcoming Encounters Date Type Department Care Team (Late st Contact Info) Description 05/26/2024 9:30 AM HUMAN RESOURCES PARTNER Office Visit [facility] Multiple Sclerosis Clinic [address] [phone] Erick Hickman MD [address] [place] [address] documented as of this encounter Visit Diagnoses Not on filedocumented in this encounter Care Teams Lapping Machine Tender Relationship Specialty Start Date End Date Jacobo Campos MD [facility] [address] [place] [address] PCP - General Internal Medicine 09/08/13 Erick Hickman MD [address] [place] [address] Assigned Neuroscience Provider 04/27/20 Boy Rousseau MD [address] [place], [place] [address], [place] [address] Assigned Surgical Provider 04/27/20 documented as of this encounter
--- OUTSIDE RECORDS SUMMARY | 2023-12-28 08:38 | XMS_ITS | Encounter Summary ---
Author Organization [facility] Address [address] [place] [address] Care Team Providers Care Consumer Loan Officer Name Role Phone Jacobo Campos MD Primary Care Provider Erick Hickman MD Unavailable [phone] Boy Rousseau MD Unavailable [phone] Reason for Visit * Reason Onset Date Comments Medication Request 04/30/2023 teriflunomide (AUBAGIO) 14 MG tablet Encounter Details Date Type Department Care Team (Late st Contact Info) Description 04/30/2023 Telephone [facility] [address] [phone] Erick Hickman MD [address] [place] [address] [id number] [place], [place] [address] Medication Request (teriflunomide (AUBAGIO) 14 MG tablet [...] CaiViolet suh - 04/30/2023 4:09 PM CDT [facility] Phone Message May a detailed message be left on voicemail: yes Reason for Call: Medication Question or concern regarding medication Prescription Clarification Name of Medication: teriflunomide (AUBAGIO) 14 MG tablet Prescribing Provider: Dr. Hickman Pharmacy: [facility] specialty pharmacy What on the order needs clarification? Mikki from the [facility] specialty pharmacy is requesting the patients [...] st Contact Info) Description 05/26/2024 9:30 AM OUTSIDE PLANT ENGINEER Office Visit [facility] [address] [phone] Erick Hickman MD [address] [place] [address] documented as of this encounter Visit Diagnoses Diagnosis Multiple sclerosis (H) Multiple sclerosis documented in this encounter Care Teams Consumer Loan Officer Relationship Specialty Start Date End Date Jacobo Campos MD [facility] [address] [place] [address] PCP - General Internal Medicine 09/08/13 Erick Hickman MD [address] [place] [address] Assigned Neuroscience Provider 04/27/20 Boy Rousseau MD [address] [place], [place] [address] [address] Assigned Surgical Provider 04/27/20 documented as of this encounter
--- OUTSIDE RECORDS SUMMARY | 2023-12-28 08:38 | XMS_ITS | Encounter Summary ---
Author Organization [facility] Address [address] [place] [address] Care Team Providers Care Balloon Maker Name Role Phone Jacobo Campos MD Primary Care Provider Erick Hickman MD Unavailable Boy Rousseau MD Unavailable [phone] Reason for Visit * Reason Onset Date Comments Prior Auth - Medication 03/09/2023 Aubagio (brand) 14MG Tablets (APPEAL DENIED) Encounter Details Date Type Department Care Team (Late st Contact Info) Description 03/09/2023 [facility] Medical Advice [facility] [address] [address] Erick Hickman MD [address] [place] [address] - [id number] [place] [address] Prior Auth - Medication (Aubagio [...] were not included. Aubagio appeal denial letter: POLLUTION SPECIALIST * Telephone Encounter - Tamara Mccullough - 05/01/2023 10:43 AM CDT MEDICATION APPEAL DENIED Medication: AUBAGIO 14 MG PO TABS Insurance Company: [employer] Denial Date: 04/29/2023 Denial Rational: Must try/fail at least 2 preferred products: Teriflunomide, Gilenya, Mavenclad Second Level Appeal Information: N/A Patient Notified: Yes Central Prior Authorization Team ONLY: Second level appeals will be managed by the clinic staff andprovider. Please contact the [facility] Prior Authorization Team if additional information about the denial is needed. Spoke with insurance and confirmed the appeal was denied on 04/29/2023. A determination letter was mailed to the clinic. Request a copy be faxed as well. Thank you, Tamara Mccullough [facility] Liaison - Cardiology Neurology [place] [id number] [email or web address] * Telephone Encounter - Tamara Mccullough - 04/23/2023 2:00 PM CDT Confirmed that the appeal was resent 04/16, but was closed because they thought it was a duplicate.I spoke with Gege in [facility] and she provided another fax number to resend the appeal request. [phone] also sent to [phone] Thank you, Tamara Mccullough [facility] Liaison - Cardiology Neurology [facility] Sclerosis [address] [address] [email or web address] * Telephone Encounter - Tamara Mccullough - 04/16/2023 12:05 PM CDT Resubmitted appeal with update date, denial letter from 04/08, and OV from 09/2022. Thank you, Tamara Mccullough [facility] Liaison - Cardiology Neurology Multiple Sclerosis [facility] [address] [place] [address] [email or web address] * Telephone Encounter - Tamara Mccullough - 04/16/2023 10:50 AM CDT Spoke with [facility] Appeals and the technical sales representative stated that since the appeal [...] the PA submission). Thank you, Tamara Mccullough [facility] Liaison - Cardiology Neurology Multiple Sclerosis [facility] [address] [place] [address] [email or web address] * Telephone Encounter - Tamara Mccullough - 04/08/2023 12:43 PM CDT Medication Appeal Initiation Medication: AUBAGIO 14 MG PO TABS Appeal Start Date: 04/08/2023 Insurance Company: [facility] Insurance Insurance Comments: Faxed and email appeal letter to [facility] of [place] Thank you, Tamara Mccullough [facility] Liaison - Cardiology Neurology Multiple Sclerosis [address] [address] * Telephone Encounter - Tamara Mccullough - 04/08/2023 12:32 PM CDT Images from the original note were not included. PRIOR AUTHORIZATION DENIED Medication: AUBAGIO 14 MG PO TABS Insurance Company: [facility] - Denial Date: 04/06/2023 Denial Rational: Must try/fail 3 alternative products: Mavenclad, Avonex, Gilenya - Must fail one additional drug since patient has already tried REbif and Glatiramer Appeal Information: Patient Notified: Yes * Telephone Encounter - Tamara Mccullough - 04/06/2023 11:03 AM CDT Images from the original note were not included. PA Initiation Medication: AUBAGIO 14 MG PO TABS Insurance Company: [facility] - Pharmacy Filling the Rx: [facility] [place], [place] - [address] Filling Pharmacy Phone: Filling Pharmacy Fax: Start Date: 04/06/2023 Thank you, Tamara Mccullough [facility] Liaison - Cardiology Neurology Multiple Sclerosis [address] [address] [email or web address] * Telephone Encounter - Erick Hickman MD [...] are: 1) To source this through the [facility] pharmacy (cost as noted) 2) Switch to leflunomide (generic, not specifically approved for MS and may not be covered by insurance but should have very similar effects as Aubagio--it is converted in the body to the active ingredient in Aubagio). Insurance may not cover for this indication, would be about $25/month through [employer] with a [employer] coupon. Other alternatives would include switching to a different medication or a trial off of disease modifying therapy. If she wants to discuss the latter two options she should make an appointment to discuss further. documented in this encounter Plan of Treatment Upcoming Encounters Date Type Department Care Team (Late st Contact Info) Description 05/26/2024 9:30 AM AIR POLLUTION SPECIALIST Office Visit [facility] [address] [address] Erick Hickman MD [address] [place] [address] - [id number] [place] [address] documented as of this encounter Visit Diagnoses Not on filedocumented in this encounter Care Teams Balloon Maker Relationship Specialty Start Date End Date Jacobo Campos MD [facility] [address] [place] [address] PCP - General Internal Medicine 09/08/13 Erick Hickman MD [address] [facility] [id number] [address] Assigned Neuroscience Provider 04/27/20 Boy Rousseau MD [address] [place], [place] [address], [place] [address] Assigned Surgical Provider 04/27/20 documented as of this encounter
--- OUTSIDE RECORDS SUMMARY | 2023-12-28 08:38 | XMS_ITS | Encounter Summary ---
Author Organization [facility] Address [address] [place] [address]. [place] [address] Care Team Providers Care Software Sales Representative Name Role Phone Jacobo Campos MD Primary Care Provider Erick Hickman MD Unavailable Boy Rousseau MD Unavailable Reason for Visit * Reason Onset Date Comments Refill Request 09/28/2023 Tamsulosin 0.4mg Encounter Details Date Type Department Care Team (Late st Contact Info) Description 09/28/2023 Refill [facility] [address] [address] Erick Hickman MD [address] [place] [address] - [id number] [place] [address] Refill Request (Tamsulosin 0.4mg ) [...] Miscellaneous Notes * Telephone Encounter - Racquel Whitt, RN - 09/29/2023 11:01 AM CDT Refill request declined as pt is overdue for appt. I have asked our clinical phlebotomist to contact pt to offer follow-up. Racquel Whitt RN documented in this encounter Plan of Treatment Upcoming Encounters Date Type Department Care Team (Late st Contact Info) Description 05/26/2024 9:30 AM CREW TEAM MEMBER Office Visit [facility] Multiple Sclerosis [address] [address] Erick Hickman MD [address] [place] [address] documented as of this encounter Visit Diagnoses Diagnosis Neurogenic bladder Neurogenic bladder, NOS documented in this encounter Care Teams Software Sales Representative Relationship Specialty Start Date End Date Jacobo Campos MD [facility] [address] [place] [address] PCP - General Internal Medicine 09/08/13 Erick Hickman MD [address] [place] [address] Assigned Neuroscience Provider 04/27/20 Boy Rousseau MD [address] [place], [place] [id number] [address] Assigned Surgical Provider 04/27/20 documented as of this encounter
--- OUTSIDE RECORDS SUMMARY | 2023-12-28 08:38 | XMS_ITS | Referral Summary ---
Author Organization [facility] Address [address] [place] [address]. [place] [address] Care Team Providers Care Supervisor General Name Role Phone Jacobo Campos MD Primary Care Provider Erick Hickman MD Unavailable [phone] Boy Rousseau MD Unavailable [phone] Encounters Date Type Department Care Team Description 10/16/2023 Refill [facility] [address] [address] Erick Hickman MD Refill Request (Tamsulosin ) 10/14/2023 Telephone [facility] Neurology Clinic [address] [place] [address] Erick Hickman MD MRA Order (Eugene called to request correction on MRA order ) 10/10/2023 MyC Medical Advice [facility] [address] [phone] Erick Hickman MD 10/08/2023 Documentation Only [facility] Multiple Sclerosis [address] [address] Erick Hickman MD Orders ([facility] ) 10/08/2023 10:15 AM CDT Lab [facility] Lab [address] [place] [address] MS (multiple sclerosis) (H) 10/08/2023 Travel 10/08/2023 9:30 AM CDT Office Visit [facility] Multiple Sclerosis [address] [address] Erick Hickman MD MS (multiple sclerosis) (H) (Primary Dx); Nonruptured cerebral aneurysm; Urinary hesitancy; Nonintractable episodic headache, unspecified headache type 09/28/2023 Refill [facility] Multiple Sclerosis [address] [address] Erick Hickman MD Refill Request (Tamsulosin 0.4mg ) 09/28/2023 Refill [facility] Multiple Sclerosis [address] [address] Erick Hickman MD Medication Refill from Last [...] ??C (97.8 ??F) 05/25/2020 8 :33 AM MITERING MACHINE OPERATOR Respiratory Rate 16 05/25/2020 12:3 2 PM MITERING MACHINE OPERATOR Oxygen Saturation 100% 10/08/2023 9:2 2 AM CDT Inhaled Oxygen Concentration - - Weight 68.9 kg (151 lb 12.8 oz) 10/08/2023 9:22 AM CDT with out shoes Height 170.2 cm (5' 7) 08/16/2020 10:5 6 AM MITERING MACHINE OPERATOR Body Mass Index 23.78 08/16/2020 10:56 AM MITERING MACHINE OPERATOR Plan of Treatment Upcoming Encounters Date Type Department Care Team (Late st Contact Info) Description 05/26/2024 9:30 AM MITERING MACHINE OPERATOR Office Visit [facility] Multiple Sclerosis [address] [address] Erick Hickman MD [address] [facility] - [id number] [place] [address] Medical Devices Implanted Type Area Manager Garage Device Identifier Shelf Expiration Date Model / Serial / Lot Embolic Substance/Dev ice Web Sl 4x3-11/23/2019 Implanted:Qty : 1 on 11/23/2019 by Boy Rousseau MD [employer] Substance/D evice Right: Carotid MICROVENTION 02/18/2020 W4-4-3 / / [id number] Stent Neuroform [place] 3x21- 0 Implanted:Qty : 1 on 11/23/2019 by Boy Rousseau MD Stent Right: Carotid CHAYITO 11/17/2023 [id number] / / [id number] Procedures Procedure Name Priority Date/Time Associated Diagnosis Comments CBC WITH PLATELETS & DIFFERENTIAL Routine 10/08/2023 10:20 AM CDT MS (multiple sclerosis) (H) CBC WITH PLATELETS AND DIFFERENTIAL Routine 10/08/2023 10:20 AM CDT MS (multiple sclerosis) (H) HEPATIC FUNCTION PANEL Routine 10/08/2023 10:20 AM CDT MS (multiple sclerosis) (H) BASIC METABOLIC PANEL Routine 05/23/2020 8:48 AM MITERING MACHINE OPERATOR Intracranial aneurysm from Last 3 Months or Most Recently Relevant to Health Maintenance Results * CBC with platelets and differential (10/08/2023 10:20 AM CDT) WBC Count 4.6 4.0 - 11.0 10e3/uL 10/08/2023 10:24 AM CDT [facility] RBC Count 4.64 3.80 - 5.20 10e6/uL 10/08/2023 10:24 AM CDT [facility] Hemoglobin 13.3 11.7 - 15.7 g/dL 10/08/2023 10:24 AM CDT [facility] Hematocrit 40.6 35.0 - 47.0 % 10/08/2023 10:24 AM CDT [facility] MCV 88 78 - 100 fL 10/08/2023 10:24 AM CDT [facility] MCH 28.7 26.5 - 33.0 pg 10/08/2023 10:24 AM CDT [facility] MCHC 32.8 31.5 - 36.5 g/dL 10/08/2023 10:24 AM CDT [facility] RDW 14.6 10.0 - 15.0 % 10/08/2023 10:24 AM CDT [facility] Platelet Count 297 150 - 450 10e3/uL 10/08/2023 10:24 AM CDT [facility] % Neutrophils 55 % 10/08/2023 10:24 AM CDT [facility] % Lymphocytes 31 % 10/08/2023 10:24 AM CDT [facility] % Monocytes 12 % 10/08/2023 10:24 AM CDT [facility] % Eosinophils 1 % 10/08/2023 10:24 AM CDT [facility] % Basophils 1 % 10/08/2023 10:24 AM CDT [facility] % Immature Granulocytes 0 % 10/08/2023 10:24 AM CDT [facility] NRBCs per 100 WBC 0 <1 /100 024 10:24 AM CDT [facility] Absolute Neutrophils 2.5 1.6 - 8.3 10e3/uL 10/08/2023 10:24 AM CDT [facility] Absolute Lymphocytes 1.4 0.8 - 5.3 10e3/uL 10/08/2023 10:24 AM CDT [facility] Absolute Monocytes 0.5 0.0 - 1.3 10e3/uL 10/08/2023 10:24 AM CDT [facility] Absolute Eosinophils 0.0 0.0 - 0.7 10e3/uL 10/08/2023 10:24 AM CDT [facility] Absolute Basophils 0.0 0.0 - 0.2 10e3/uL 10/08/2023 10:24 AM CDT [facility] Absolute Immature Granulocytes 0.0 <=0.4 10e3/uL 10/08/2023 10:24 AM CDT [facility] Absolute NRBCs 0.0 10e3/uL 10/08/2023 10:24 AM CDT [facility] Blood STRUCTURE OF RIGHT UPPER LIMB / Unknown Venipuncture / Unknown 10/08/2023 10:20 AM CDT 10/08/2023 10:20 AM CDT Erick Hickman MD LAB - BLOOD ORDER EN[facility] [place] [address] [facility] 1st [place] [address] * Hepatic panel (10/08/2023 10:20 AM CDT) Protein Total 6.9 6.4 - 8.3 g/dL 10/08/2023 10:48 AM CDT [facility] Albumin 4.5 3.5 - 5.2 g/dL 10/08/2023 10:48 AM CDT [facility] Bilirubin Total 0.2 <=1.2 mg/dL 10/08/2023 10:48 AM CDT [facility] Alkaline Phosphatase 82 40 - 150 U/L 10/08/2023 10:48 AM CDT [facility] Comment:Reference intervals for this test were updated on 05/19/2023 to more accurately reflect our healthy population. There may be differences in the flagging of prior results with similar values performed with this method. Interpretation of those prior results can be made in the context of the updated reference intervals. AST 15 0 - 45 U/L 10/08/2023 10:48 AM CDT [facility] Comment:Reference intervals for this test were updated on 12/15/2022 to more accurately reflect our healthy population. There may be differences in the flagging of prior results with similar values performed with this method. Interpretation of those prior results can be made in the context of the updated reference intervals. ALT 17 0 - 50 U/L 10/08/2023 10:48 AM CDT [facility] Comment:Reference intervals for [...] - 0.30 mg/dL 10/08/2023 10:48 AM CDT [facility] Blood STRUCTURE OF RIGHT UPPER LIMB / Unknown Venipuncture / Unknown 10/08/2023 10:20 AM CDT 10/08/2023 10:20 AM CDT Erick Hickman MD LAB - BLOOD ORDER ENZO [facility] - [address] [place] [address] * Basic metabolic panel FUTURE anytime (05/23/2020 8:48 AM MITERING MACHINE OPERATOR) Sodium 141 133 - 144 mmol/L 05/23/2020 1:58 PM [facility] Potassium 3.6 3.4 - 5.3 mmol/L 05/23/2020 1:58 PM [facility] Chloride 105 94 - 109 mmol/L 05/23/2020 1:58 PM [facility] Carbon Dioxide 27 20 - 32 mmol/L 05/23/2020 2:26 PM [facility] Anion Gap 9 3 - 14 mmol/L 05/23/2020 2:26 PM [facility] Glucose 87 70 - 99 mg/dL 05/23/2020 2:26 PM [facility] Urea Nitrogen 14 7 - [...] >90 >60 mL/min/{1 .73_m2} 05/23/2020 2:26 PM MITERING MACHINE OPERATOR [facility] Comment: GFR Calc Starting 06/22/2018, serum creatinine based estimated GFR (eGFR) will be calculated using the Chronic Kidney Disease Epidemiology Collaboration (CKD-EPI) equation. Calcium 9.5 8.5 - 10.1 mg/dL 05/23/2020 2:26 PM MITERING MACHINE OPERATOR [facility] Blood specimen (specimen) 05/23/2020 8:48 AM MITERING MACHINE OPERATOR 05/23/2020 8:53 AM MITERING MACHINE OPERATOR Lin Daily MD LAB - BLOOD ORDERABL ES [facility] [address] [place] [address], [facility] [phone] [facility] [address] [place] [address] from Last 3 Months or Most Recently Relevant to Health Maintenance Care Teams Supervisor General Relationship Specialty Start Date End Date Jacobo Campos MD [facility] [address] [place] [address] PCP - General Internal Medicine 09/08/13 Erick Hickman MD [address] [facility] - [id number] [place] [address] Assigned Neuroscience Provider 04/27/20 Boy Rousseau MD [address] [facility] [id number] [place] [address] Assigned Surgical Provider 04/27/20
--- OUTSIDE RECORDS SUMMARY | 2023-12-28 08:39 | XMS_ITS | Encounter Summary ---
Author Organization [facility] Address [address] [place] [address] Care Team Providers Care Lead Simulation Modeling Engineer Name Role Phone Jacobo Campos MD Primary Care Provider Guerita Holbrook RN Unavailable Erick Hickman MD Unavailable [phone] Boy Rousseau MD Unavailable [phone] Reason for Visit * Reason Onset Date Comments Prior Auth - Medication 06/23/2019 teriflun omide (AUBAGIO) 14 MG tablet Call Back 06/23/2019 Encounter Details Date Type Department Care Team (Late st Contact Info) Description 06/23/2019 Telephone [facility] [address] [address] Erick Hickman MD [address] [place] [address] - [id number] [place], [place] [address] Prior Auth - Medication (teriflunomide (AUBAGIO) 14 [...] 1:20 PM CST Aubagio Rx sent to [facility]. HOUSE RECORD CLERK * Telephone Encounter - Tamara Mccullough - 07/07/2019 1:01 PM CST Images from the original note were not included. I spoke with the patient and she can now fill with [facility]. I've already added her insurance through [email or web address] [place] and obtained her copay card and added both to their system. A new RX for Aubagio will need to be sent to [facility] to initiate their new patient process. PDM Copay Card: [facility] Of [place] insurance: Thank you, Tamara Mccullough CPh-T Specialty Pharmacy Clinic [facility] [address] 3rd [place] [address] [email or web address] HOUSE RECORD CLERK * Telephone Encounter - Charley Horowitz RN - 07/07/2019 11:48 AM CST Tamara, please see below. Patient states she changed insurance. Can you investigate what pharmacy sheshould use? HOUSE RECORD CLERK * Telephone Encounter - Carlos Godwin - 07/07/2019 9:50 AM WAREHOUSE RECORD CLERK [facility] Phone Message May a detailed message be left on voicemail: yes Reason for Call: Other: Aleishaalie calling to request a call back. She states she switched insurance to [employer] and pharmacies to [employer]. She would like to know if she's able to get her Aubagio. ([facility] , Phone# [phone]) Please call her back to discuss. Action Taken: Message routed to: [facility] neuro HOUSE RECORD CLERK * Telephone Encounter - Joy Guevara - 06/24/2019 9:33 AM CST Images from the original note were not included. Prior Authorization Approval Authorization Effective Date: 06/24/2019 Authorization Expiration Date: 06/24/2020 Medication: teriflunomide (AUBAGIO) 14 MG tablet Approved Dose/Quantity: 30 Reference #: [id number] Insurance Company: [employer] [phone] Which Pharmacy is filling the prescription (Not needed for infusion/clinic administered): [facility] [place] [address] [employer]- no interruption in therapy - previous PA was good until 07/08/2019 HOUSE RECORD CLERK * Telephone Encounter - Joy Guevara - 06/23/2019 3:11 PM CST PA Initiation Medication: teriflunomide (AUBAGIO) 14 MG tablet Insurance Company: [employer] [phone] Pharmacy Filling the Rx: [facility] [place] [address] [employer] Filling Pharmacy Phone: Filling Pharmacy Fax: Start Date: 06/23/2019 Central Prior Authorization Team Filled out form and faxed it to [facility] fax# [phone] HOUSE RECORD CLERK * Telephone Encounter - Felicia Morin - 06/23/2019 10:20 AM CST Images from the original note were not included. HOUSE RECORD CLERK documented in this encounter Plan of Treatment Upcoming Encounters Date Type Department Care Team (Late st Contact Info) Description 05/26/2024 9:30 AM WAREHOUSE RECORD CLERK Office Visit [facility] Multiple Sclerosis [address] [address] Erick Hickman MD [address] [facility], [place] [address] documented as of this encounter Visit Diagnoses Diagnosis Multiple sclerosis (H)- Primary Multiple sclerosis documented in this encounter Care Teams Lead Simulation Modeling Engineer Relationship Specialty Start Date End Date Jacobo Campos MD [facility] [address] [place] [address] PCP - General Internal Medicine 09/08/13 Guerita Holbrook, [facility] Neurology 06/22/15 02/28/21 Erick Hickman MD [address] [place], [place] [address] [address] Assigned Neuroscience Provider 04/27/20 Boy Rousseau MD [address] [place], [place] [id number] [address] Assigned Surgical Provider 04/27/20 documented as of this encounter
--- OUTSIDE RECORDS SUMMARY | 2023-12-28 08:39 | XMS_ITS | Encounter Summary ---
Author Organization [facility] Address [address] [place] [address]. [place] [address] Care Team Providers Care Registered Appraiser Name Role Phone Jacobo Campos MD Primary Care Provider Guerita Holbrook RN Unavailable Erick Hickman MD Unavailable [phone] Boy Rousseau MD Unavailable [phone] Reason for Visit * Reason Onset Date Comments Call Back 01/25/2020 Encounter Details Date Type Department Care Team (Late st Contact Info) Description 01/25/2020 [facility] [address] [phone] Erick Hickman MD [address] [place] [address] - [id number] [place], [place] [id number] Call Back Social History Tobacco Use Types [...] Pooja Aceves - 01/25/2020 8:54 AM CDT [facility] Phone Message May a detailed message be left on voicemail: yes Reason for Call: Other: Pt is at [facility], pt stateed she needs OK from Dr [...] st Contact Info) Description 05/26/2024 9:30 AM CONFIGURATION ENGINEER Office Visit [facility] [address] [phone] Erick Hickman MD [address] [place] [address] documented as of this encounter Visit Diagnoses Not on filedocumented in this encounter Care Teams Registered Appraiser Relationship Specialty Start Date End Date Jacobo Campos MD [facility] [address] [place] [address] PCP - General Internal Medicine 09/08/13 Guerita Holbrook, RN Specialty Greenhouse Grower Neurology 06/22/15 02/28/21 Erick Hickman MD [address] [place] [address] Assigned Neuroscience Provider 04/27/20 Boy Rousseau MD [address] [place], [place] [address], [place] [address] Assigned Surgical Provider 04/27/20 documented as of this encounter
--- OUTSIDE RECORDS SUMMARY | 2023-12-28 08:39 | XMS_ITS | Clinical Summary ---
Author Organization [facility] Address [place], [place] [address] Care Team Providers Care Escalator Installer Name Role Phone Jacobo Campos MD Primary [...] 99 months 1 Each 12/21/2020 Active teriflunomide (AUBAGIO) 14 mg tablet Take 1 tablet (14 mg) by mouth daily 90 Tablet 3 05/01/2023 Active oxyCODONE-acetamino phen (Percocet) 5-325 mg per [...] for 1 dose. 1 Tablet 08/12/2023 Active gabapentin (NEURONTIN) 300 mg capsuleIndications: Lumbar radiculopathy Take 1 Capsule (300 mg) by mouth three times daily. 270 Capsule 11/07/2023 Active Active Problems Problem Noted Date Diagnosed Date Acetabular labrum tear, left, sequela 09/24/2023 Piriformis syndrome of left side 09/24/2023 Greater trochanteric bursitis of left hip 2023 Lumbar and sacral osteoarthritis 09/24/2023 Neurogenic bladder 02/18/2016 Recurrent UTI 02/18/2016 Multiple sclerosis 10/12/2010 COUGH 02/25/2000 Encounters Date Type Department Care Team Description 11/06/2023 Refill [facility] [address] [place] [address] Oneal Gamez MD Refill Request (Gabapentin) 09/28/2023 Telephone [facility] [address] [place] [address] Yinka Fontenot MD Questions (CALL BACK ) 09/28/2023 Telephone [facility] [address] [place] [address] Alecia Ramirez, OD Error-please disregard from Last 3 Months Immunizations Name Administration [...] Comments Blood Pressure 111/78 08/06/2023 1:51 PM HYDROELECTRIC OPERATOR Pulse 76 08/06/2023 1:51 PM HYDROELECTRIC OPERATOR Temperature 37 ??C (98.6 ??F) 08/06/2023 1:51 PM HYDROELECTRIC OPERATOR Respiratory Rate 16 09/02/2016 9:30 AM HYDROELECTRIC OPERATOR Oxygen Saturation 100% 08/06/2023 1:51 PM HYDROELECTRIC OPERATOR Inhaled Oxygen Concentration - - Weight 75.4 kg (166 lb 3.2 oz) 08/06/2023 1:51 P M HYDROELECTRIC OPERATOR Height 170 cm (5' 6.93) 08/04/2016 9:28 AM HYDROELECTRIC OPERATOR Body Mass Index 26.09 08/04/2016 9:28 AM HYDROELECTRIC OPERATOR Plan of Treatment Health Maintenance Due Date [...] (1 of 2) 2022 COVID-19 vaccine series (2022-24 season) 2023 Influenza for age 50-64 03/06/2024 Pneumococcal series for age 6-64 Aged Out No longer eligible b ased on patient's age to complete this topic Procedures Procedure Name Priority Date/Time Associated Diagnosis Comments CONCRETE PAVEMENT INSTALLER THIN PREP PAP SCREEN IMAGED Routine 05/21/2007 4:49 PM HYDROELECTRIC OPERATOR Screening Malignant Neoplasms Cervix from Last 3 Months or Most Recently Relevant to Health Maintenance Results * CONCRETE PAVEMENT INSTALLER THIN PREP PAP SCREEN IMAGED (05/21/2007 4:49 PM HYDROELECTRIC OPERATOR) CYTOLOGY ??CYTOPATHOLOGY REPORT ??[facility] ?? Status: Final Report ? [id number] ?? CLINICAL INFORMATION ?LMP ? : 05/02/07 ?Previous Pap Date ? : 2004 ?Previous PAP Dx ? : Negative for intraepithelial lesion or ?malignancy. ?Previous [place]/bx date : None ?Previous Colposcopy/Bx: None ?Hormone Usage ? : None ?Menstrual Status ?: Regular Periods ?Appearance of Cervix ??: NORMAL ?[place]/Bx done today ?: No ?HPV Request ? [...] 05/21/07 ?? ACCESSIONED: 05/21/07 ?? SIGNED: 06/07/07 [facility] Cervical (Cervical) 05/21/2007 4:49 PM HYDROELECTRIC OPERATOR 05/21/2007 4:45 PM HYDROELECTRIC OPERATOR Janeth Barrett NP PATHOLOGY/CYTOLOGY [facility] INTERNAL ZIP [address] [address] from Last 3 Months or Most Recently Relevant to Health Maintenance Care Teams Escalator Installer Relationship Specialty Start Date End Date Jacobo Campos MD [address] [place], [place] [id number] PCP - General Internal Medicine 10/25/21
--- OUTSIDE RECORDS SUMMARY | 2023-12-28 08:39 | XMS_ITS | Encounter Summary ---
Author Organization [facility] Address [address] [place] [address] Care Team Providers Care Lot Technician Name Role Phone Jacobo Campos MD Primary Care Provider Guerita Holbrook RN Unavailable Erick Hickman MD Unavailable [phone] Boy Rousseau MD Unavailable [phone] Reason for Visit * Reason Onset Date Comments letter and symptoms 01/26/2020 update worka bility letter and discuss symptoms. Encounter Details Date Type Department Care Team ([facility] st Contact Info) Description 01/26/2020 [facility]phone [facility] [address] [place] [address] 3rd [place] [address] Boy Rousseau MD [address] [place] [address] [id number] [place] [address] letter and symptoms (update workability [...] Jenae Oquendo Taken Imaging disc received from [facility] and sent to [facility] to be uploaded into PACs. 01/25/20 - Cervical Spine WO * Telephone Encounter - Charley Horowitz RN - 01/27/2020 3:37 PM CDT Called [facility] and they will fax c-spine MRI report from 01/24. They are unable to push images to [facility] and won't send a disc without an updated JED. I called the patient and she will call [facility] and have them release images. Report rec'd [...] primary care provider, Dr. Jacobo Campos at [facility]. Dr. Campos reportedly stated that patient has [...] and discuss MRI. * Patient will contact [facility] to have imaging sent/pushed to PACS Patient [...] at work. Fax number to [employer] [facility]: [phone] Please call once request is complete and to discuss. Action Taken: Other: [facility] Travel Screening: Not Applicable documented in this encounter Plan of Treatment Upcoming Encounters Date Type Department Care Team (Late st Contact Info) Description 05/26/2024 9:30 AM MANAGER TAX Office Visit [facility] [address] [phone] Erick Hickman MD [address] [place] [address] documented as of this encounter Visit Diagnoses Not on filedocumented in this encounter Care Teams Lot Technician Relationship Specialty Start Date End Date Jacobo Campos MD [facility] [address] [place] [address] PCP - General Internal Medicine 09/08/13 Guerita Holbrook, DIVINE Specialty Cruller Maker Machine Neurology 06/22/15 02/28/21 Erick Hickman MD [address] [place] [address] Assigned Neuroscience Provider 04/27/20 Boy Rousseau MD [address] [facility] [id number] [place] [address] Assigned Surgical Provider 04/27/20 documented as of this encounter
--- OUTSIDE RECORDS SUMMARY | 2023-12-28 08:39 | XMS_ITS | Encounter Summary ---
Author Organization [facility] Address [address] [place] [address] Care Team Providers Care Car Lubricator Name Role Phone Jacobo Campos MD Primary Care Provider Guerita Holbrook RN Unavailable Erick Hickman MD Unavailable [phone] Boy Rousseau MD Unavailable [phone] Encounter Details Date Type Department Care Team [...] Shoaib Garduno - 08/19/2012 1:15 PM CST Meal Attendant: Shoaib Garduno Status: Final - Signature Encounter: 2012-08-19 13:15:00.000 Type: Neurology Letter [facility] [address] [facility] [address] [place] [address] August 19, 2012 Jacobo Campos M.D. [facility] [address] [place] [address] RE: Eliz [place] : 1970 DHRUV: 08/19/2012 [...] she is going on a vacation to [place] soon. Current medications are Rebif, vitamin D, [...] Strength is normal. Sensory examination is intact. Sqpjbh-lo-jzlf is done well. Her gait is normal, [...] aware of this while she is in [place]. She will continue to see me at least every six months. Sincerely, Shoaib Garduno MD Department of Neurology [facility] CL:11 Electronically signed by:Shoaib Garduno M.D. Aug 19 2012 4:30PM DRAW BENCH OPERATOR BENCH OPERATOR documented in this encounter Plan of Treatment Upcoming Encounters Date Type Department Care Team (Late st Contact Info) Description 05/26/2024 9:30 AM DRAW BENCH OPERATOR Office Visit [facility] Sclerosis Clinic [address] [address] Erick Hickman MD [address] [id number] [place] [address] documented as of this encounter Visit Diagnoses Not on filedocumented in this encounter Care Teams Car Lubricator Relationship Specialty Start Date End Date Jacobo Campos MD [facility] [address] [place] [address] PCP - General Internal Medicine 09/08/13 Guerita Holbrook, RN Specialty Secretary Specialist Neurology 06/22/15 02/28/21 Erick Hickman MD [address] [place], [place] [address], [place] [address] Assigned Neuroscience Provider 04/27/20 Boy Rousseau MD [address] [place], [place] [address], [place] [address] Assigned Surgical Provider 04/27/20 documented as of this encounter
--- OUTSIDE RECORDS SUMMARY | 2023-12-28 08:39 | XMS_ITS | Encounter Summary ---
Author Organization [facility] Address [address] [place] [address]. [place] [address] Care Team Providers Care Geospatial Technologist Name Role Phone Jacobo Campos MD Primary Care Provider Guerita Holbrook RN Unavailable Erick Hickman MD Unavailable [phone] Boy Rousseau MD Unavailable [phone] Reason for Visit * Reason Onset Date Comments Refill Request 05/18/2019 AUBAGIO 14 MG ta blet Encounter Details Date Type Department Care Team (Late st Contact Info) Description 05/18/2019 [facility] Sclerosis [facility] [address] [address] Erick Hickman MD [address] [place] [address] - [id number] [place] [address] Refill Request (AUBAGIO 14 MG [...] 1 year per MS refill protocol. Charley HASKINS Called patient and made her aware of this. No further needs at this time. ALLERGY * Telephone Encounter - Christopher De Anda - 05/18/2019 1:57 PM CST [facility] Call Center Phone Message May a detailed message be left on voicemail: no Reason for Call: Medication Refill Request Has the patient contacted the pharmacy for the refill? Yes Name of medication being requested: AUBAGIO 14 MG tablet Provider who prescribed the medication: Dr. Hickman Pharmacy: [facility] Specialty Date medication is needed: Pt [...] routed to: [facility] ALLERGY documented in this encounter Plan of Treatment Upcoming Encounters Date Type Department Care Team (Late st Contact Info) Description 05/26/2024 9:30 AM RN ALLERGY Office Visit [facility] Multiple Sclerosis Clinic [address] [address] Erick Hickman MD [address] [place] [address] - [id number] [place] [address] documented as of this encounter Visit Diagnoses Diagnosis Multiple sclerosis (H) Multiple sclerosis documented in this encounter Care Teams Geospatial Technologist Relationship Specialty Start Date End Date Jacobo Campos MD [facility] [address] [place] [address] PCP - General Internal Medicine 09/08/13 Guerita Holbrook, RN Specialty Accounts Executive Neurology 06/22/15 02/28/21 Erick Hickman MD [address] [facility] - [id number], [place] [address] Assigned Neuroscience Provider 04/27/20 Boy Rousseau MD [address] [place], [place] [address], [place] [address] Assigned Surgical Provider 04/27/20 documented as of this encounter
--- OUTSIDE RECORDS SUMMARY | 2023-12-28 08:39 | XMS_ITS | Encounter Summary ---
Author Organization [facility] Address [address] [place] [address]. [place] [address] Care Team Providers Care Power Generation Plant Operator Name Role Phone Jacobo Campos MD Primary Care Provider Guerita Holbrook RN Unavailable Erick Hickman MD Unavailable [phone] Boy Rousseau MD Unavailable [phone] Encounter Details Date Type Department Care Team (Late st Contact Info) Description 08/15/2020 Telephone [facility] Sclerosis [facility] [address] [address] Erick Hickman MD [address] [place] [address] - [id number] [place] [address] Social History Tobacco Use Types [...] COVID-19? No / Unsure 08/16/2020 10:51 AM FILENET P8 DEVELOPER documented as of this encounter Miscellaneous Notes * Telephone Encounter - Sherri Ramirez MA - 08/15/2020 2:40 PM CST Called and informed patient, no MRI or labs needed before appointment per last OV 08/2019 Sherri Ramirez MA NET P8 DEVELOPER * Telephone Encounter - Kodak Oneill - 08/15/2020 2:13 PM CST [facility] Phone Message May a detailed message [...] Center ([facility]SC): Neuology Travel Screening: Not Applicable NET P8 DEVELOPER documented in this encounter Plan of Treatment Upcoming Encounters Date Type Department Care Team (Late st Contact Info) Description 05/26/2024 9:30 AM FILENET P8 DEVELOPER Office Visit [facility] Multiple Sclerosis [address] [phone] Erick Hickman MD [address] [place] [address] - [id number] [place] [address] documented as of this encounter Visit Diagnoses Not on filedocumented in this encounter Care Teams Power Generation Plant Operator Relationship Specialty Start Date End Date Jacobo Campos MD [facility] [address] [place] [address] PCP - General Internal Medicine 09/08/13 Guerita Holbrook, RN Specialty Residential Sales Neurology 06/22/15 02/28/21 Erick Hickman MD [address] [place] [address] - [id number], [place] [address] Assigned Neuroscience Provider 04/27/20 Boy Rousseau MD [address] [place], [place] [address], [place] [address] Assigned Surgical Provider 04/27/20 documented as of this encounter
--- OUTSIDE RECORDS SUMMARY | 2023-12-28 08:39 | XMS_ITS | Encounter Summary ---
Author Organization [facility] Address [address] [place] [address]. [place] [address] Care Team Providers Care Strap Cutting Machine Operator Name Role Phone Jacobo Campos MD Primary Care Provider Guerita Holbrook RN Unavailable Erick Hickman MD Unavailable [phone] Boy Rousseau MD Unavailable [phone] Reason for Visit * Reason Onset Date Comments Call Back 10/17/2020 Encounter Details Date Type Department Care Team (Late st Contact Info) Description 10/17/2020 Telephone [facility] [address] [phone] Erick Hickman MD [address] [place] [address] - [id number] [place] [address] Call Back Social History Tobacco [...] Olga Vargas - 10/17/2020 3:53 PM CDT [facility] Call Center Phone Message May a detailed message be left on voicemail: yes Reason for Call: Other: Patient calling looking to speak with care team of Dr. Hickman - statesthat her provider in [place] is needing clarification/ confirmation if she is [...] st Contact Info) Description 05/26/2024 9:30 AM METAL TREATER Office Visit [facility] [address] [address] Erick Hickman MD [address] [place] [address] - [id number] [place] [address] documented as of this encounter Visit Diagnoses Not on filedocumented in this encounter Care Teams Strap Cutting Machine Operator Relationship Specialty Start Date End Date Jacobo Campos MD [facility] [address] [place] [address] PCP - General Internal Medicine 09/08/13 Guerita Holbrook, DIVINE Specialty Cartography Supervisor Neurology 06/22/15 02/28/21 Erick Hickman MD [address] [place] [address] Assigned Neuroscience Provider 04/27/20 Boy Rousseau MD [address] [place], [place] [address] [address] Assigned Surgical Provider 04/27/20 documented as of this encounter
--- OUTSIDE RECORDS SUMMARY | 2023-12-28 08:39 | XMS_ITS | Encounter Summary ---
Author Organization [facility] Address [address] [place] [address]. [place] [address] Care Team Providers Care Seaweed Harvester Name Role Phone Jacobo Campos MD Primary Care Provider Guerita Holbrook RN Unavailable Erick Hickman MD Unavailable [phone] Boy Rousseau MD Unavailable [phone] Reason for Visit * Reason Onset Date Comments Call Back 10/17/2020 Encounter Details Date Type Department Care Team (Late st Contact Info) Description 10/17/2020 Telephone [facility] [address] [address] Boy Rousseau MD [address] [place] [address] [id number] [place], [place] [id number] Call Back Social History Tobacco Use Types [...] imaging report to Dr. Gamez at fax# [phone] Campos at fax# [phone]. No other questions or concerns at this time. * Telephone Encounter - Dian Gibbs RN - 10/18/2020 11:06 AM CDT Ok for MRI. 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 See implant information for details. * Telephone Encounter - Olga Vargas - 10/17/2020 3:[address] [facility] Phone Message May a detailed message be left on voicemail: yes Reason for Call: Other: Patient calling looking to speak with care team of Dr. Rousseau - states that her provider in [place] is needing clarification/ confirmation if she is able to get MRI on spine and brain and neck area. States that she is having back and spine issues. Please advise and call patient back at your earliest convenience to discuss further Action Taken: Other: [facility] Travel Screening: Not Applicable documented in this encounter Plan of Treatment Upcoming Encounters Date Type Department Care Team (Late st Contact Info) Description 05/26/2024 9:30 AM BALL FRINGE MACHINE OPERATOR Office Visit [facility] [address] [address] Erick Hickman MD [address] [place] [address] - [id number] [place], [place] [address] documented as of this encounter Visit Diagnoses Not on filedocumented in this encounter Care Teams Seaweed Harvester Relationship Specialty Start Date End Date Jacobo Campos MD [facility] [address] [place] [address] PCP - General Internal Medicine 09/08/13 Guerita Holbrook, RN Specialty Potable Water Treatment Operator Neurology 06/22/15 02/28/21 Erick Hickman MD [address] [place] [address] - [id number], [place] [address] Assigned Neuroscience Provider 04/27/20 Boy Rousseau MD [address] [place], [place] [address], [place] [address] Assigned Surgical Provider 04/27/20 documented as of this encounter
--- OUTSIDE RECORDS SUMMARY | 2023-12-28 08:39 | XMS_ITS | Encounter Summary ---
Author Organization [facility] Address [address] [place] [address]. [place] [address] Care Team Providers Care Supervisor Fish Processing Name Role Phone Jacobo Campos MD Primary Care Provider Guerita Holbrook RN Unavailable Erick Hickman MD Unavailable [phone] Boy Rousseau MD Unavailable [phone] Reason for Visit * Reason Onset Date Comments Patient Request 2019 Encounter Details Date Type Department Care Team (Late st Contact Info) Description 2019 Telephone [facility] Multiple Sclerosis Clinic [address] [address] Erick Hickman MD [address] [place] [address] - [id number] [place] [address] Patient Request Social History Tobacco Use Types Packs/Day Years Used Date Smoking Tobacco: Former Smokeless Tobacco: Never PHQ-2 Answer Date Recorded PHQ-2 Score 0 07/14/2018 Sex and Gender Information Value Date Recorded Sex Assigned at Not on file Gender Identity Not on file Sexual Orientation Not on file documented as of this encounter Miscellaneous Notes * Telephone Encounter - Dain Gibbs RN - 2019 2:56 PM CDT Spoke with patient who states she needs some sort of authorization for angio scheduled for 10/05/19. She is not certain exactly what is needed. She does not believe it is a PA. She states it is a [employer] vendor that send out the authorization. It is suppose to come from her primary care provider and MD performing procedure. Patient just wants to ensure that procedure will be covered. Message sent to Financial Counseling to see if they are able to assist. * Telephone Encounter - Michelle Obrien - 2019 9:27 AM CDT [facility] Call Center Phone Message May a detailed message be left on voicemail: yes Reason for Call: Other: Pt requesting a referral be sent to her insurance regarding a cerebral angiogram that she is having done on 10/04. Pt requesting call back to discuss Action Taken: Message routed to: [facility] neuro Travel Screening: Not Applicable documented in this encounter Plan of Treatment Upcoming Encounters Date Type Department Care Team (Late st Contact Info) Description 05/26/2024 9:30 AM LABORATORY MECHANICAL TECHNICIAN Office Visit [facility] Multiple Sclerosis Clinic [address] [address] Erick Hickman MD [address] [place] [address] - [id number] [place] [address] documented as of this encounter Visit Diagnoses Not on filedocumented in this encounter Care Teams Supervisor Fish Processing Relationship Specialty Start Date End Date Jacobo Campos MD [facility] [address] [place] [address] PCP - General Internal Medicine 09/08/13 Guerita Holbrook, RN Specialty Banana Ripening Room Supervisor Neurology 06/22/15 02/28/21 Erick Hickman MD [address] [facility] - [id number] [place] [address] Assigned Neuroscience Provider 04/27/20 Boy Rousseau MD [address] [facility] [id number] [place] [address] Assigned Surgical Provider 04/27/20 documented as of this encounter
--- OUTSIDE RECORDS SUMMARY | 2023-12-28 08:39 | XMS_ITS | Encounter Summary ---
Author Organization [facility] Address [address] [place] [address]. [place] [address] Care Team Providers Care Pmo Manager Name Role Phone Jacobo Campos MD Primary Care Provider Guerita Holbrook RN Unavailable Erick Hickman MD Unavailable [phone] Boy Rousseau MD Unavailable [phone] Reason for Visit * Reason Onset Date Comments Orders 07/12/2019 MRI head, Spine Encounter Details Date Type Department Care Team (Late st Contact Info) Description 07/12/2019 [facility] [address] [phone] Erick Hickman MD [address] [place] [address] - [id number] [place] [address] Orders (MRI head, Spine) Social [...] Orders faxed. Patient made aware of this. RVATIONS SALES AGENT * Telephone Encounter - Charley Horowitz RN - 07/12/2019 10:37 AM CST Patient is scheduled to see Dr. Hickman 08/18; per the last office note, MD would like MRI of brain and c-spine. Orders placed on behalf of . Once orders co-signed, will fax to [facility] (fax [phone]). RVATIONS SALES AGENT * Telephone Encounter - Carlos Godwin - 07/12/2019 10:26 AM RESERVATIONS SALES AGENT [facility] Call Center Phone Message May a detailed message be left on voicemail: yes Reason for Call: Order(s): Other: Reason for requested: MRI brain, spine Date needed: as soon as possible Provider name: Marylou Please send order to [place], [place] Action Taken: Message routed to: [facility] neuro RVATIONS SALES AGENT documented in this encounter Plan of Treatment Upcoming Encounters Date Type Department Care Team (Late st Contact Info) Description 05/26/2024 9:30 AM RESERVATIONS SALES AGENT Office Visit [facility] Multiple Sclerosis [address] [phone] Erick Hickman MD [address] [place] [address] - [id number] [place] [address] documented as of this encounter Visit Diagnoses Diagnosis Multiple sclerosis (H)- Primary Multiple sclerosis documented in this encounter Care Teams Pmo Manager Relationship Specialty Start Date End Date Jacobo Campos MD [facility] [address] [place] [address] PCP - General Internal Medicine 09/08/13 Guerita Holbrook, RN Specialty Tea Tree Farmer Neurology 06/22/15 02/28/21 Erick Hickman MD [address] [place] [address] - [id number] [place] [address] Assigned Neuroscience Provider 04/27/20 Boy Rousseau MD 9 [facility] [id number] [address] Assigned Surgical Provider 04/27/20 documented as of this encounter
--- OUTSIDE RECORDS SUMMARY | 2023-12-28 08:39 | XMS_ITS | Encounter Summary ---
Author Organization [facility] Address [address] [place] [address] Care Team Providers Care Training Coordinator Name Role Phone Jacobo Campos MD Primary Care Provider Guerita Holbrook RN Unavailable Erick Hickman MD Unavailable [phone] Boy Rousseau MD Unavailable [phone] Reason for Visit * Reason Onset Date Comments Call Back 11/28/2020 medical card for flight Encounter Details Date Type Department Care Team (Late st Contact Info) Description 11/28/2020 Telephone [facility] Neurology Clinic [address] [place] [address] Boy Rousseau MD [address] [place] [address] [id number] [place] [address] Call Back (medical card for [...] SUBSTANCE/DEVICE WEB SL 4X3 STENT NEUROFORM ATLAS [id number] 11/23/2019 documented in this encounter Miscellaneous Notes [...] Joselyn Everett - 11/28/2020 11:[address] [facility] Call Center Phone Message May a [...] st Contact Info) Description 05/26/2024 9:30 AM SENIOR MANAGING DIRECTOR Office Visit [facility] Sclerosis Clinic [address] [phone] Erick Hickman MD [address] [place] [address] - [id number] [place], [place] [address] documented as of this encounter Visit Diagnoses Not on filedocumented in this encounter Care Teams Training Coordinator Relationship Specialty Start Date End Date Jacobo Campos MD [facility] [address] [place] [address] PCP - General Internal Medicine 09/08/13 Guerita Holbrook, RN Specialty Licensed Mass Real Estate Appraiser Neurology 06/22/15 02/28/21 Erick Hickman MD 9 [facility] - [id number], [place] [address] Assigned Neuroscience Provider 04/27/20 Boy Rousseau MD [address] [place], [place] [id number], [place] [address] Assigned Surgical Provider 04/27/20 documented as of this encounter
--- OUTSIDE RECORDS SUMMARY | 2023-12-28 08:39 | XMS_ITS | Encounter Summary ---
Author Organization [facility] Address [address] [place] [address] Care Team Providers Care Athletic Equipment Manager Name Role Phone Jacobo Campos MD Primary Care Provider Guerita Holbrook RN Unavailable Erick Hickman MD Unavailable [phone] Boy Rousseau MD Unavailable [phone] Reason for Visit * Reason Onset Date Comments Appointment 12/08/2019 Upcoming appoint ment question Encounter Details Date Type Department Care Team (Late st Contact Info) Description 12/08/2019 Telephone [facility] [address] [facility] 3rd [place] [address] Boy Rousseau MD [address] [place] [address] [id number] [place] [address] Appointment (Upcoming appointment question) Social [...] Antonina Torres - 12/08/2019 8:39 AM CDT [facility] Call Center Phone Message May [...] st Contact Info) Description 05/26/2024 9:30 AM JUKEBOX OPERATOR Office Visit [facility] Multiple Sclerosis [address] [phone] Erick Hickman MD [address] [place] [address] - [id number] [place] [address] documented as of this encounter Visit Diagnoses Not on filedocumented in this encounter Care Teams Athletic Equipment Manager Relationship Specialty Start Date End Date Jacobo Campos MD [facility] [address] [place] [address] PCP - General Internal Medicine 09/08/13 Guerita Holbrook, DIVINE Specialty Detention Attendant Neurology 06/22/15 02/28/21 Erick Hickman MD [address] [facility] [id number] [address] Assigned Neuroscience Provider 04/27/20 Boy Rousseau MD [facility] [address] Assigned Surgical Provider 04/27/20 documented as of this encounter
== END 2023-12-10 13:33 | disposition home or self-care (01) ==
LOC: NFLDREF 12-28 08:35
PROVIDERS: PCP Internal Medicine; Referring Provider Internal Medicine; Visit Provider Obstetrics & Gynecology
DX: R35.0 Frequency of micturition (principal)
CPT/HCPCS: 87086

== ENCOUNTER 2024-02-11 10:30 | Emergency (ER) | payer OTHER, BC, SELFPAY ==
[2024-02-11 10:42] VITALS: BP 150/103; PULSE 84; RESP 18; O2SAT 100
--- NOTE | 2024-02-11 11:25 | ED.SKABFB ---
HPI - Skin/Abscess/Foreign Bdy General Chief complaint: Skin/Abscess/Foreign Body Stated complaint: dog bite, right arm Time Seen by Provider: 02/11/24 10:54 Source: patient Mode of arrival: ambulatory Limitations: no limitations History of Present Illness HPI narrative: Patient is a 53-year-old female who worse or [employer] presenting to the emergency department for dog bite to her right forearm. There is a small bite noted that is no longer bleeding. She states the dog, that has gotten out frequently in the past, was running around the neighborhood when they tried to catch it. She was able to get leash on even show a but it accidentally scratched it bit her right forearm. She states not seem to be acting over the aggressively but was weakness head around trying to get out of the collar. It was vaccinated on 01/28/2024. No other concerns noted. She also has some right arm and shoulder pain but is able to move her shoulder without issue and is not having any tenderness to her right arm or shoulder Related Data Home Medications ?Medication ?Instructions ?Recorded ?Confirmed estradiol 0.1 mg/24 hr semiweekly 1 patch transdermal 07/02/22 12/09/23 transdermal patch nortriptyline 25 mg capsule 25 mg PO QDAY 07/02/22 12/09/23 tamsulosin 0.4 mg capsule ea PO 07/02/22 12/09/23 teriflunomide 14 mg tablet 14 mg PO 07/02/22 12/09/23 (Aubagio) aspirin 81 mg chewable tablet 1 tab PO DAILY 07/15/22 12/09/23 Previous Rx's ?Medication ?Instructions ?Recorded nifedipine 10 mg capsule 10 mg PO BID #60 caps 06/15/23 tramadol 50 mg tablet 50 mg PO Q8H PRN pain #30 tabs 06/15/23 oxycodone 5 mg tablet 5 mg PO Q4H PRN pain #30 tabs 06/24/23 cyclobenzaprine 10 mg tablet 10 mg PO TID PRN muscle spasm #60 07/03/23 tabs fluconazole 200 mg tablet 200 mg PO QDAY #2 tabs 09/01/23 estradiol 0.1 mg/24 hr semiweekly 1 patch transdermal 2XW #24 ea 12/09/23 transdermal patch metronidazole 0.75 % (37.5 mg/5 1 appful vaginal QDAY 5 days #70 12/09/23 gram) vaginal gel grams sulfamethoxazole 800 1 tab PO DAILY #60 tabs 12/09/23 mg-trimethoprim 160 mg tablet (Bactrim DS) prednisone 20 mg tablet 20 mg PO BID #10 tabs 12/23/23 amoxicillin 875 mg-potassium 1 tab PO BID #10 tabs 02/11/24 clavulanate 125 mg tablet Allergies Allergy/AdvReac Type Severity Reaction Status Date / Time glatiramer (copolymer 1) Allergy Verified 12/09/23 11:13 mannitol Allergy fever, Verified 12/09/23 11:13 myalgia, malaise, local rash Review of Systems Narrative: Pertinent systems reviewed and were negative unless stated in HPI PFSH PFS Medical History (Updated 02/11/24 @ 11:30 by Ruperto Rossi DO) Allergic reaction to drug ?T78.40XA - Allergy, unspecified, initial encounter (ICD-10) Chilblains ?T69.1XXA - Chilblains, initial encounter (ICD-10) Sciatica ?M54.30 - Sciatica, unspecified side (ICD-10) Foot pain ?M79.673 - Pain in unspecified foot (ICD-10) Yeast infection of the vagina ?B37.31 - Acute candidiasis of vulva and vagina (ICD-10) Subungual hematoma of digit of hand ?S60.10XA - Contusion of unspecified finger with damage to nail, initial encounter (ICD-10) Sepsis ?A41.9 - Sepsis, unspecified organism (ICD-10) Recurrent urinary tract infection ?N39.0 - Urinary tract infection, site not specified (ICD-10) Recurrent candidiasis of vagina ?B37.31 - Acute candidiasis of vulva and vagina (ICD-10) Postcoital urinary tract infection ?N39.0 - Urinary tract infection, site not specified (ICD-10) On hormone replacement therapy ?Z79.890 - Hormone replacement therapy (ICD-10) Leukopenia ?D72.819 - Decreased white blood cell count, unspecified (ICD-10) History of herpes zoster ?Z86.19 - Personal history of other infectious and parasitic diseases (ICD-10) Hematochezia (04/03/09) ?K92.1 - Melena (ICD-10) Endometriosis (04/03/09) ?N80.9 - Endometriosis, unspecified (ICD-10) Eczema ?L30.9 - Dermatitis, unspecified (ICD-10) Bacterial vaginosis ?N76.0 - Acute vaginitis (ICD-10) ?B96.89 - Other specified bacterial agents as the cause of diseases classified elsewhere (ICD-10) Cerebral aneurysm (2020) ?I67.1 - Cerebral aneurysm, nonruptured (ICD-10) Multiple sclerosis ?G35 - Multiple sclerosis (ICD-10) Surgical History Status post hysterectomy with oophorectomy ?Z90.710 - Acquired absence of both cervix and uterus (ICD-10) ?Z90.721 - Acquired absence of ovaries, unilateral (ICD-10) History of exploratory laparotomy ?Z98.890 - Other specified postprocedural states (ICD-10) Status post right rotator cuff repair (10/10/16) ?Z98.890 - Other specified postprocedural states (ICD-10) Family History Sister Multiple sclerosis Breast cancer Maternal Grandmother Stroke Maternal Grandfather Stroke Paternal Grandfather Stroke Paternal Grandmother Breast cancer Mother Heart disease Pancreatic cancer Father Lung cancer Stomach cancer Social History Smoking Status: Never smoker Do you use any of these nicotine containing products: None Second hand tobacco smoke exposure: No Non-prescribed substance use: former substance user Little interest or pleasure in doing things: not at all Feeling down, depressed, or hopeless: not at all Exam Narrative: Exam Narrative: Const: Well-nourished, Well-developed, in no distress Eyes: PERRL, no conjunctival injection, and symmetrical lids HENT: Atraumatic external nose and ears. Moist mucous membranes. Removal MSK:Extremities w/o deformity, Normal Active ROM, no tenderness noted to right arm or shoulder Skin: Warm, Dry. 0.5 cm laceration noted to right forearm she and is no longer bleeding Neuro: Normal Muscle tone, No focal neurological deficits. Psych: Awake, Alert, & Oriented x3. Appropriate mood and affect. Const: Vital Signs, click to edit/add: Vital Signs - 24 hr 02/11/24 10:42 Pulse Rate [Left P ulse Oximeter] 84 Respiratory Rate 18 Blood Pressure [Le ft Upper Arm] 150/103 H Pulse Oximetry 100 Oxygen Delivery Me thod Room Air Course Vital Signs Vital signs: Initial Vital Signs Pulse Rate 84 02/11/24 10:42 Pulse Rhythm Regular 02/11/24 10:42 Pulse Strength 3+ Normal 02/11/24 10:42 Respiratory Rate 18 02/11/24 10:42 Blood Pressure 150/103 H 02/11/24 10:42 Blood Pressure Mean 118 H 02/11/24 10:42 Blood Pressure Position Sitting 02/11/24 10:42 Pulse Oximetry 100 02/11/24 10:42 Oxygen Delivery Method Room Air 02/11/24 10:42 Vital Signs Pulse Rate 84 02/11/24 10:42 Respiratory Rate 18 02/11/24 10:42 Blood Pressure 150/103 H 02/11/24 10:42 Pulse Oximetry 100 02/11/24 10:42 Oxygen Delivery Method Room Air 02/11/24 10:42 Pulse Rate 84 02/11/24 10:42 Respiratory Rate 18 02/11/24 10:42 Blood Pressure 150/103 H 02/11/24 10:42 Pulse Oximetry 100 02/11/24 10:42 Oxygen Delivery Method Room Air 02/11/24 10:42 MDM - Skin/Abscess/Foreign Bdy MDM Narrative Medical decision making narrative: Patient is a 53-year-old female presenting to department dog bite. Urgent not believe any imaging is necessary at this time. Area was cleaned thoroughly. She sutures are not indicated. Will start her on Augmentin. The dog was vaccinated 13 days ago in well likely has good immunization against rabies for immunizations not occur for about 28 days. Dog will be quarantined for 10 days the also the rabies vaccine series is not indicated at this time. She will be discharged Discharge Plan Discharge Clinical Impression: Dog bite Qualifiers: Encounter type: initial encounter Qualified Code(s): W54.0XXA - Bitten by dog, initial encounter Patient Disposition: Home, Self-Care Condition: Stable Instructions: Animal Bite (ED), Rabies (ED) Additional Instructions: Take the Augmentin as directed. Return to emergency department if the dog started showing signs of rabies. Prescriptions: New amoxicillin-pot clavulanate 875-125 mg tablet 1 tab PO BID Qty: 10 0RF No Action metronidazole 0.75 % (37.5mg/5 gram) gel 1 appful vaginal QDAY 5 Days Qty: 70 12RF estradiol 0.1 mg/24 hr patch semiweekly 1 patch transdermal 2XW Qty: 24 4RF Rx Instructions: apply 1 patch for 3 days alternating with 1 patch for 4 days each week for 3 wks per 4-wk cycle sulfamethoxazole-trimethoprim [Bactrim DS] 800-160 mg tablet 1 tab PO DAILY Qty: 60 3RF Rx Instructions: Take 1 tablet by mouth on the days you have intercourse. tamsulosin 0.4 mg capsule PO estradiol 0.1 mg/24 hr patch semiweekly 1 patch transdermal nortriptyline 25 mg capsule 25 mg PO QDAY Aubagio 14 mg tablet 14 mg PO aspirin 81 mg tablet,chewable 1 tab PO DAILY nifedipine 10 mg capsule 10 mg PO BID Qty: 60 2RF tramadol 50 mg tablet 50 mg PO Q8H PRN (Reason: pain) Qty: 30 0RF oxycodone 5 mg tablet 5 mg PO Q4H PRN (Reason: pain) Qty: 30 0RF cyclobenzaprine 10 mg tablet 10 mg PO TID PRN (Reason: muscle spasm) Qty: 60 0RF fluconazole 200 mg tablet 200 mg PO QDAY Qty: 2 12RF prednisone 20 mg tablet 20 mg PO BID Qty: 10 0RF Follow Up/Referrals: Jacobo Campos MD [Primary Care Provider] - Stand Alone Forms: [employer] Info Instructions
--- OUTSIDE RECORDS SUMMARY | 2024-02-11 11:39 | XMS_ITS | Encounter Summary ---
Author Organization [facility] Address [address] [place] [address] Care Team Providers Care Melter Loader Name Role Phone Jacobo Campos MD Primary Care Provider Erick Hickman MD Unavailable Boy Rousseau MD Unavailable [phone] Reason for Visit * Reason Onset Date Comments Prior Auth - Medication 03/09/2023 Aubagio (brand) 14MG Tablets (APPEAL DENIED) Encounter Details Date Type Department Care Team (Late st Contact Info) Description 03/09/2023 [facility] Medical Advice [facility] [address] [phone] Erick Hickman MD [address] [place] [address] - [id number] [place] [address] Prior Auth - Medication (Aubagio [...] were not included. Aubagio appeal denial letter: SCAN TECH * Telephone Encounter - Tamara Mccullough - 05/01/2023 10:43 AM CDT MEDICATION APPEAL DENIED Medication: AUBAGIO 14 MG PO TABS Insurance Company: [employer] Denial Date: 04/29/2023 Denial Rational: Must try/fail at least 2 preferred products: Teriflunomide, Gilenya, Mavenclad Second Level Appeal Information: N/A Patient Notified: Yes Central Prior Authorization Team ONLY: Second level appeals will be managed by the clinic staff andprovider. Please contact the [facility] Prior Authorization Team if additional information about the denial is needed. Spoke with insurance and confirmed the appeal was denied on 04/29/2023. A determination letter was mailed to the clinic. Request a copy be faxed as well. Thank you, Tamara Mccullough [facility] Liaison - Cardiology Neurology [place] [id number] [email or web address] * Telephone Encounter - Tamara Mccullough - 04/23/2023 2:00 PM CDT Confirmed that the appeal was resent 04/16, but was closed because they thought it was a duplicate.I spoke with Gege in [facility] and she provided another fax number to resend the appeal request. [phone] also sent to [phone] Thank you, Tamara Mccullough [facility] Liaison - Cardiology Neurology [facility] Sclerosis [address] [address] [email or web address] * Telephone Encounter - Tamara Mccullough - 04/16/2023 12:05 PM CDT Resubmitted appeal with update date, denial letter from 04/08, and OV from 09/2022. Thank you, Tamara Mccullough [facility] Liaison - Cardiology Neurology Multiple Sclerosis [facility] [address] [place] [address] [email or web address] * Telephone Encounter - Tamara Mccullough - 04/16/2023 10:50 AM CDT Spoke with [facility] Appeals and the medical office representative stated that since the appeal letter [...] the PA submission). Thank you, Tamara Mccullough [facility] Liaison - Cardiology Neurology Multiple Sclerosis [facility] [address] [place] [address] [email or web address] * Telephone Encounter - Tamara Mccullough - 04/08/2023 12:43 PM CDT Medication Appeal Initiation Medication: AUBAGIO 14 MG PO TABS Appeal Start Date: 04/08/2023 Insurance Company: [id number] Insurance Insurance Comments: Faxed and email appeal letter to [facility] [place] Thank you, Tamara Mccullough [facility] Liaison - Cardiology Neurology Multiple Sclerosis [address] [address] * Telephone Encounter - Tamara Mccullough - 04/08/2023 12:32 PM CDT Images from the original note were not included. PRIOR AUTHORIZATION DENIED Medication: AUBAGIO 14 MG PO TABS Insurance Company: [facility] - Denial Date: 04/06/2023 Denial [...] 14 MG PO TABS Insurance Company: [facility] - Pharmacy Filling the Rx: [facility] - [place], [place] - [address] Filling Pharmacy Phone: Filling Pharmacy Fax: Start Date: 04/06/2023 Thank you, Tamara Mccullough [facility] Liaison - Cardiology Neurology Multiple Sclerosis [address] [address] [email or web address] * Telephone Encounter - Erick Hickman MD [...] are: 1) To source this through the [facility] pharmacy (cost as noted) 2) Switch to leflunomide (generic, not specifically approved for MS and may not be covered by insurance but should have very similar effects as Aubagio--it is converted in the body to the active ingredient in Aubagio). Insurance may not cover for this indication, would be about $25/month through [place] with a [employer] coupon. Other alternatives would include switching to a different medication or a trial off of disease modifying therapy. If she wants to discuss the latter two options she should make an appointment to discuss further. documented in this encounter Plan of Treatment Upcoming Encounters Date Type Department Care Team (Late st Contact Info) Description 05/26/2024 9:[address] SCAN TECH Office Visit [facility] [address] [address] Erick Hickman MD [address] [place] [address] - [id number] [place] [address] documented as of this encounter Visit Diagnoses Not on filedocumented in this encounter Care Teams Melter Loader Relationship Specialty Start Date End Date Jacobo Campos MD [facility] [address] [place] [address] PCP - General Internal Medicine 09/08/13 Erick Hickman MD 9 [facility] - [id number] [address] Assigned Neuroscience Provider 04/27/20 Boy Rousseau MD [address] [place], [place] [address], [place] [address] Assigned Surgical Provider 04/27/20 12/26/23 documented as of this encounter
--- OUTSIDE RECORDS SUMMARY | 2024-02-11 11:39 | XMS_ITS | Encounter Summary ---
Author Organization [facility] Address [address] [place] [address] Care Team Providers Care Yard Truck Driver Name Role Phone Jacobo Campos MD Primary Care Provider Erick Hickman MD Unavailable [phone] Boy Rousseau MD Unavailable [phone] Reason for Visit * Reason Onset Date Comments Medication Request 04/30/2023 teriflunomide (AUBAGIO) 14 MG tablet Encounter Details Date Type Department Care Team (Late st Contact Info) Description 04/30/2023 Telephone [facility] [address] [phone] Erick Hickman MD [address] [place] [address] [id number] [place], [place] [address] Medication Request (teriflunomide (AUBAGIO) 14 MG tablet [...] CaiViolet suh - 04/30/2023 4:09 PM CDT [facility] Phone Message May a detailed message be left on voicemail: yes Reason for Call: Medication Question or concern regarding medication Prescription Clarification Name of Medication: teriflunomide (AUBAGIO) 14 MG tablet Prescribing Provider: Dr. Hickman Pharmacy: [facility] What on the order needs clarification? Mikki from the [facility] specialty pharmacy is requesting the [...] st Contact Info) Description 05/26/2024 9:30 AM ACTUARY MANAGER Office Visit [facility] [address] [phone] Erick Hickman MD [address] [place] [address] documented as of this encounter Visit Diagnoses Diagnosis Multiple sclerosis (H) Multiple sclerosis documented in this encounter Care Teams Yard Truck Driver Relationship Specialty Start Date End Date Jacobo Campos MD [facility] [address] [place] [address] PCP - General Internal Medicine 09/08/13 Erick Hickman MD [address] [place] [address] Assigned Neuroscience Provider 04/27/20 Boy Rousseau MD [address] [place], [place] [id number] [place] [address] Assigned Surgical Provider 04/27/20 12/26/23 documented as of this encounter
--- OUTSIDE RECORDS SUMMARY | 2024-02-11 11:39 | XMS_ITS | Encounter Summary ---
Author Organization [place] Address [address] [place] [address] Care Team Providers Care Outreach Counselor Name Role Phone Jacobo Campos MD Primary Care Provider Guerita Holbrook RN Unavailable Erick Hickman MD Unavailable [phone] Boy Rousseau MD Unavailable [phone] Reason for Visit * Reason Onset Date Comments Call Back 11/28/2020 medical card for flight Encounter Details Date Type Department Care Team (Late st Contact Info) Description 11/28/2020 Telephone [facility] [address] [place] [address] Boy Rousseau MD [address] [place] [address] [id number] [place] [address] Call Back (medical card for [...] SUBSTANCE/DEVICE WEB SL 4X3 STENT NEUROFORM ATLAS [id number] 11/23/2019 documented in this encounter Miscellaneous Notes [...] - 11/28/2020 11:36 AM CDT [facility] Call Center Phone Message May a [...] st Contact Info) Description 05/26/2024 9:30 AM LEHR LOADER Office Visit [facility] Multiple Sclerosis Clinic [address] [address] Erick Hickman MD [address] [place] [address] - [id number] [place], [place] [address] documented as of this encounter Visit Diagnoses Not on filedocumented in this encounter Care Teams Outreach Counselor Relationship Specialty Start Date End Date Jacobo Campos MD [facility] [address] [place] [address] PCP - General Internal Medicine 09/08/13 Guerita Holbrook, RN Specialty Unishear Operator Neurology 06/22/15 02/28/21 Erick Hickman MD 9 [facility] - [id number] [address] Assigned Neuroscience Provider 04/27/20 Boy Rousseau MD [address] [place], [place] [address], [place] [address] Assigned Surgical Provider 04/27/20 12/26/23 documented as of this encounter
--- OUTSIDE RECORDS SUMMARY | 2024-02-11 11:39 | XMS_ITS | Encounter Summary ---
Author Organization [place] Address [address] [place] [address] Care Team Providers Care Leadite Worker Name Role Phone Jacobo Campos MD Primary Care Provider Erick Hickman MD Unavailable [phone] Boy Rousseau MD Unavailable [phone] Reason for Referral * Diagnostic Imaging MRI (Routine) - Pending Review Specialty Diagnoses / Procedures Referred By Monica longoria Referred To Contact Radiology. Diagnoses Nonruptured cerebral aneurysm Procedures MRA Brain ([place] [facility] [place]) wo Contrast Erick Hickman MD [address] [place] [address] Referral ID Status Reason Start Date Expiration Date V isits Requested Visits Authorized [id number] Pending Review 11/05/2023 11/04/2024 1 1 Reason for Visit * Reason Onset Date Comments MRA Order 10/14/2023 [facility] christiana arellano to request correction on MRA order Encounter Details Date Type Department Care Team ([facility] st Contact Info) Description 10/14/2023 Telephone [facility] Neurology Clinic [address] 3rd [place] [address] Erick Hickman MD [address] [place] [address] MRA Order ([facility] called to request correction on MRA order [...] RN - 11/05/2023 12:51 PM CDT Called [facility]. They confirmed that MRI brain and cervical spine were completed on 11/01.Both reports received. Requested images be pushed to [facility]. MRA was completed yesterday 11/03. Report not yet available, but will be faxed to us once finalized, and images pushed. Racquel Whitt RN * Telephone Encounter - Racquel Whitt RN - 10/14/2023 3:26 PM CDT Spoke with Denise at [facility]. Per their radiologist, only non- contrast MRA needed. Requesting new order for MRI w/o contrast. Routing request to Dr Hickman. Racquel Whitt RN * Telephone Encounter - Mellisa Gomez - 10/14/2023 2:15 PM CDT [facility] Phone Message May a detailed message be left on voicemail: yes Reason for Call: Denise from [facility] Imaging department called to request a correction on MRA order from , per Denise, protocol orders need only to say without contrast please re fax MRA order to: P# [phone] Action Taken: Message routed to[facility]y Travel Screening: Not Applicable documented in this encounter Plan of Treatment Upcoming Encounters Date Type Department Care Team (Late st Contact Info) Description 05/26/2024 9:30 AM MAINTENANCE DEPARTMENT TECHNICIAN Office Visit [facility] Multiple Sclerosis [address] [address] Erick Hickman MD [address] [place] [address] Scheduled Orders Name Type Priority Associated Diagnoses Orde r Schedule MRA Brain ([place] [facility] [place]) wo Contrast Imaging Routine Nonruptured cerebral aneurysm Expected: 11/05/2023 (Approximate), Expires: 11/04/2024 documented as of this encounter Visit Diagnoses Diagnosis Nonruptured cerebral aneurysm- Primary Cerebral aneurysm, nonruptured documented in this encounter Care Teams Leadite Worker Relationship Specialty Start Date End Date Jacobo Campos MD [facility] [address] [place] [address] PCP - General Internal Medicine 09/08/13 Erick Hickman MD [address] [place] [address] Assigned Neuroscience Provider 04/27/20 Boy Rousseau MD [address] [place], [place] [id number] [address] Assigned Surgical Provider 04/27/20 12/26/23 documented as of this encounter
--- OUTSIDE RECORDS SUMMARY | 2024-02-11 11:39 | XMS_ITS | Encounter Summary ---
Author Organization [place] Address [address] [place] [address]. [place] [address] Care Team Providers Care Technical Translator Name Role Phone Jacobo Campos MD Primary Care Provider Guerita Holbrook RN Unavailable Erick Hickman MD Unavailable [phone] Boy Rousseau MD Unavailable [phone] Reason for Visit * Reason Onset Date Comments Call Back 01/25/2020 Encounter Details Date Type Department Care Team (Late st Contact Info) Description 01/25/2020 [facility] Multiple Sclerosis Clinic [address] [phone] Erick Hickman MD [address] [place] [address] - [id number] [place], [place] [id number] Call Back Social History Tobacco Use Types [...] Reason for Call: Other: Pt is at [facility], pt stateed she needs OK [...] st Contact Info) Description 05/26/2024 9:30 AM SHAREPOINT SPECIALIST Office Visit [facility] Multiple Sclerosis Clinic [address] [phone] Erick Hickman MD [address] [place] [address] documented as of this encounter Visit Diagnoses Not on filedocumented in this encounter Care Teams Technical Translator Relationship Specialty Start Date End Date Jacobo Campos MD [facility] [address] [place] [address] PCP - General Internal Medicine 09/08/13 Guerita Holbrook, RN Specialty Removable Prosthodontist Neurology 06/22/15 02/28/21 Erick Hickman MD [address] [place] [address] Assigned Neuroscience Provider 04/27/20 Boy Rousseau MD [address] [place], [place] [id number], [place] [address] Assigned Surgical Provider 04/27/20 12/26/23 documented as of this encounter
--- OUTSIDE RECORDS SUMMARY | 2024-02-11 11:39 | XMS_ITS | Encounter Summary ---
Author Organization [place] Address [address] [place] [address]. [place] [address] Care Team Providers Care Local Flatbed Driver Name Role Phone Jacobo Campos MD Primary Care Provider Erick Hickman MD Unavailable [phone] Boy Rousseau MD Unavailable Reason for Visit * Reason Comments Orders [facility] Encounter Details Date Type Department Care Team (Latest Contact Info) Description 10/08/2023 Documentation Only [facility] Multiple Sclerosis Clinic [address] [address] Erick Hickman MD [address] [place] [address] - [id number] [place] [address] Orders ([facility] ) Social History Tobacco Use Types [...] the head have been faxed over to [facility] at [phone]. Reinaldo Pavon EMT October 08, 2023 * Reinaldo Pavon - 10/08/2023 3:19 PM CDT Cervical spine MRI report received from [facility], reports placed in Dr. Hickman's folder for review and signature. Reinaldo Pavon EMT November 03, 2023 * Reinaldo Pavon - 10/08/2023 3:19 PM CDT Brain MRI has been received from [facility], report placed in Dr. Hickman's folder for review and signature. Reinaldo Pavon EMT November 06, 2023 documented in this encounter Plan of Treatment Upcoming Encounters Date Type Department Care Team (Late st Contact Info) Description 05/26/2024 9:30 AM FIELD OBSERVER Office Visit [facility] Multiple Sclerosis Clinic [address] [phone] Erick Hickman MD [address] [place] [address] documented as of this encounter Visit Diagnoses Not on filedocumented in this encounter Care Teams Local Flatbed Driver Relationship Specialty Start Date End Date Jacobo Campos MD [facility] [address] [place] [address] PCP - General Internal Medicine 09/08/13 Erick Hickman MD [address] [place] [address] Assigned Neuroscience Provider 04/27/20 Boy Rousseau MD [address] [id number] [place] [address] Assigned Surgical Provider 04/27/20 12/26/23 documented as of this encounter
--- OUTSIDE RECORDS SUMMARY | 2024-02-11 11:39 | XMS_ITS | Encounter Summary ---
Author Organization [place] Address [address] [place] [address]. [place] [address] Care Team Providers Care Cook Helper Name Role Phone Jacobo Campos MD Primary Care Provider Erick Hickman MD Unavailable [phone] Reason for Visit * Reason Comments Medication Refill Nortriptyline Encounter Details Date Type Department Care Team (Late st Contact Info) Description 01/02/[address] [facility] Multiple Sclerosis Clinic [address] [address] Erick Hickman MD [address] [place] [address] - [id number] [place] [address] Medication Refill (Nortriptyline) Social History Tobacco Use Types Packs/Day Years [...] Telephone Encounter - Racquel Whitt RN - 01/04/2024 10:06 AM CDT Received refill request for nortriptyline from [facility]; Patient was last seen in October 2023 and has follow up appointment in May [address] Hickman. Refilled per [facility] refill protocol. Racquel Whitt RN documented in this encounter Plan of Treatment Upcoming Encounters Date Type Department Care Team (Late st Contact Info) Description 05/26/2024 9:30 AM PIPING ENGINEER Office Visit [facility] Multiple Sclerosis [address] [address] Erick Hickman MD [address] [place] [address] documented as of this encounter Visit Diagnoses Diagnosis Nonintractable headache, unspecified chronicity pattern, unspecified headache type documented in this encounter Care Teams Cook Helper Relationship Specialty Start Date End Date Jacobo Campos MD [address] [address] PCP - General Internal Medicine 09/08/13 Erick Hickman MD [address] [place] [address] Assigned Neuroscience Provider 04/27/20 documented as of this encounter
--- OUTSIDE RECORDS SUMMARY | 2024-02-11 11:39 | XMS_ITS | Encounter Summary ---
Author Organization [place] Address [address] [place] [address]. [place] [address] Care Team Providers Care Operator Receptionist Name Role Phone Jacobo Campos MD Primary Care Provider Guerita Holbrook RN Unavailable Erick Hickman MD Unavailable [phone] Boy Rousseau MD Unavailable [phone] Reason for Visit * Reason Onset Date Comments Call Back 10/17/2020 Encounter Details Date Type Department Care Team (Late st Contact Info) Description 10/17/2020 Telephone [facility] Neurosurgery Clinic [address] [address] Boy Rousseau MD [address] [place] [address] [id number] [place], [place] [id number] Call Back Social History Tobacco Use Types [...] imaging report to Dr. Gamez at fax# [phone] Campos at fax# [phone]. No other questions or concerns at this time. * Telephone Encounter - Dian Gibbs RN - 10/18/2020 11:06 AM CDT Ok for MRI. Patient has Embolic Substance/Device WEB SL 4x3 and Neuroform [place] Stent 3x21 placed 11/23/19. See implant information for details. * Telephone Encounter - Olga Vargas - 10/17/2020 3:49 PM CDT [facility] Phone Message May a detailed message be left on voicemail: yes Reason for Call: Other: Patient calling looking to speak with care team of Dr. oRusseau - states that her provider in [place] is needing clarification/ confirmation if she is able to get MRI on spine and brain and neck area. States that she is having back and spine issues. Please advise and call patient back at your earliest convenience to discuss further Action Taken: Other: [facility] Travel Screening: Not Applicable documented in this encounter Plan of Treatment Upcoming Encounters Date Type Department Care Team (Late st Contact Info) Description 05/26/2024 9:30 AM SECURITY THREAT ANALYST Office Visit [facility] Multiple Sclerosis Clinic [address] [address] Erick Hickman MD [address] [place] [address] - [id number] [place], [place] [address] documented as of this encounter Visit Diagnoses Not on filedocumented in this encounter Care Teams Operator Receptionist Relationship Specialty Start Date End Date Jacobo Campos MD [facility] [address] [place] [address] PCP - General Internal Medicine 09/08/13 Guerita Holbrook, RN Specialty Mail Processing Machine Operator Neurology 06/22/15 02/28/21 Erick Hickman MD [address] [place] [address] - [id number], [place] [address] Assigned Neuroscience Provider 04/27/20 Boy Rousseau MD [address] [place], [place] [id number], [place] 6[address]95 Assigned Surgical Provider 04/27/20 12/26/23 documented as of this encounter
--- OUTSIDE RECORDS SUMMARY | 2024-02-11 11:39 | XMS_ITS | Encounter Summary ---
Author Organization [place] Address [address] [place] [address]. [place] [address] Care Team Providers Care Rn Provider Relations Name Role Phone Jacobo Campos MD Primary Care Provider Guerita Holbrook RN Unavailable Eirck Hickman MD Unavailable [phone] Boy Rousseau MD Unavailable [phone] Encounter Details Date Type Department Care Team (Late st Contact Info) Description 08/15/2020 Telephone [facility] Multiple Sclerosis Clinic [address] [address] Erick Hickman MD [address] [place] [address] - [id number] [place] [address] Social History Tobacco Use Types [...] COVID-19? No / Unsure 08/16/2020 10:51 AM MANUFACTURERS REPRESENTATIVE documented as of this encounter Miscellaneous Notes * Telephone Encounter - Sherri Ramirez MA - 08/15/2020 2:40 PM CST Called and informed patient, no MRI or labs needed before appointment per last OV 08/2019 Sherri Ramirez MA FACTURERS REPRESENTATIVE * Telephone Encounter - Kodak Oneill - 08/15/2020 2:13 PM CST [facility] Phone Message [...] Center ([facility]): Neuology Travel Screening: Not Applicable FACTURERS REPRESENTATIVE documented in this encounter Plan of Treatment Upcoming Encounters Date Type Department Care Team (Late st Contact Info) Description 05/26/2024 9:30 AM MANUFACTURERS REPRESENTATIVE Office Visit [facility] Multiple Sclerosis [address] [phone] Erick Hickman MD [address] [place] [address] - [id number] [place] [address] documented as of this encounter Visit Diagnoses Not on filedocumented in this encounter Care Teams Rn Provider Relations Relationship Specialty Start Date End Date Jacobo Cmapos MD [facility] [address] [place] [address] PCP - General Internal Medicine 09/08/13 Guerita Holbrook, DIVINE Specialty Airbrush Artist Neurology 06/22/15 02/28/21 Erick Hickman MD [address] [place] [address] - [id number], [place] [address] Assigned Neuroscience Provider 04/27/20 Boy Rousseau MD [address] [place], [place] [address], [place] [address] Assigned Surgical Provider 04/27/20 12/26/23 documented as of this encounter
--- OUTSIDE RECORDS SUMMARY | 2024-02-11 11:39 | XMS_ITS | Encounter Summary ---
Author Organization [place] Address [address] [place] [address]. [place] [address] Care Team Providers Care Gyroscope Repairer Name Role Phone Jacobo Campos MD Primary Care Provider Erick Hickman MD Unavailable [phone] Boy Rousseau MD Unavailable [phone] Encounter Details Date Type Department Care Team (Late Contact Info) Description 04/30/2023 MyC Medical Advice [facility] [address] [place] [address] Tamara Mccullough Social History Tobacco Use [...] Contact Info) Description 05/26/2024 9:30 AM NETWORK DEVELOPER Office Visit [facility] Multiple Sclerosis Clinic [address] [address] Erick Hickman MD [address] [place] [address] - [id number] [place] [address] documented as of this encounter Visit Diagnoses Not on filedocumented in this encounter Care Teams Gyroscope Repairer Relationship Specialty Start Date End Date Jacobo Campos MD [facility] [address] [place] [address] PCP - General Internal Medicine 09/08/13 Erick Hickman MD [address] [place], [place] [address], [place] [address] Assigned Neuroscience Provider 04/27/20 Boy Rousseau MD [address] [place], [place] [address], [place] [address] Assigned Surgical Provider 04/27/20 12/26/23 documented as of this encounter
--- OUTSIDE RECORDS SUMMARY | 2024-02-11 11:39 | XMS_ITS | Encounter Summary ---
Author Organization [place] Address [address] [place] [address]. [place] [address] Care Team Providers Care Speech Pathologist Name Role Phone Jacobo Campos MD Primary Care Provider Guerita Holbrook RN Unavailable Erick Hickman MD Unavailable [phone] Boy Rousseau MD Unavailable [phone] Reason for Visit * Reason Onset Date Comments Patient Request 2019 Encounter Details Date Type Department Care Team (Late st Contact Info) Description 2019 Telephone [facility] Multiple Sclerosis Clinic [address] [address] Erick Hickman MD [address] [place] [address] - [id number] [place] [address] Patient Request Social History Tobacco [...] a PA. She states it is a [employer] vendor that send out the authorization. It is suppose to come from her primary care provider and MD performing procedure. Patient just wants to ensure that procedure will be covered. Message sent to Financial Counseling to see if they are able to assist. * Telephone Encounter - Michelle Obrien - 2019 9:27 AM CDT [facility] Center Phone Message May a detailed message be left on voicemail: yes Reason for Call: Other: Pt requesting a referral be sent to her insurance regarding a cerebral angiogram that she is having done on 10/04. Pt requesting call back to discuss Action Taken: Message routed to: [facility] ([facility]): neuro Travel Screening: Not Applicable documented in this encounter Plan of Treatment Upcoming Encounters Date Type Department Care Team (Late st Contact Info) Description 05/26/2024 9:30 AM DRUM BUILDER Office Visit [facility] Multiple Sclerosis Clinic [address] [address] Erick Hickman MD [address] [place] [address] - [id number] [place] [address] documented as of this encounter Visit Diagnoses Not on filedocumented in this encounter Care Teams Speech Pathologist Relationship Specialty Start Date End Date Jacobo Campos MD [facility] [address] [place] [address] PCP - General Internal Medicine 09/08/13 Guerita Holbrook, RN Specialty Sales Ledger Clerk Neurology 06/22/15 02/28/21 Erick Hickman MD [address] [facility] - [id number] [place] [address] Assigned Neuroscience Provider 04/27/20 Boy Rousseau MD [address] [facility] [id number] [place] [address] Assigned Surgical Provider 04/27/20 12/26/23 documented as of this encounter
--- OUTSIDE RECORDS SUMMARY | 2024-02-11 11:39 | XMS_ITS | Encounter Summary ---
Author Organization [place] Address [address] [place] [address] Care Team Providers Care Bank Vault Attendant Name Role Phone Jacobo Campos MD Primary Care Provider Guerita Holbrook RN Unavailable Erick Hickman MD Unavailable [phone] Boy Rousseau MD Unavailable [phone] Reason for Visit * Reason Onset Date Comments Appointment 12/08/2019 Upcoming appoint ment question Encounter Details Date Type Department Care Team (Late st Contact Info) Description 12/08/2019 Telephone [facility] Neurosurgery [address] [facility] 3rd [place] [address] oBy Rousseau MD [address] [place] [address] [id number] [place] [address] Appointment (Upcoming appointment question) Social [...] Antonina Torres - 12/08/2019 8:39 AM CDT [facility] Call Center Phone Message May a detailed [...] st Contact Info) Description 05/26/2024 9:30 AM GROUT PUMP OPERATOR Office Visit [facility] Multiple Sclerosis [address] [address] Erick Hickman MD [address] [place] [address] - [id number] [place] [address] documented as of this encounter Visit Diagnoses Not on filedocumented in this encounter Care Teams Bank Vault Attendant Relationship Specialty Start Date End Date Jacobo Campos MD [facility] [address] [place] [address] PCP - General Internal Medicine 09/08/13 Guerita Holbrook, DIVINE Specialty Sheet Rock Layer Neurology 06/22/15 02/28/21 Erick Hickman MD [address] [facility] [id number] [address] Assigned Neuroscience Provider 04/27/20 Boy Rousseau MD [address] [id number] [address] Assigned Surgical Provider 04/27/20 12/26/23 documented as of this encounter
--- OUTSIDE RECORDS SUMMARY | 2024-02-11 11:39 | XMS_ITS | Clinical Summary ---
Author Organization [facility] Address [address] [place] [address] Care Team Providers Care Wood Furniture Assembler Name Role Phone Jacobo Campos MD Primary Care Provider Erick Hickman MD Unavailable [phone] Allergies Active Allergy Reactions Criticality Noted Date [...] hours as needed for mild pain Active teriflunomide (AUBAGIO) 14 MG tabletIndications:M ultiple sclerosis (H) Take 1 tablet (14 mg) by mouth daily Only available through select specialty pharmacies 90 tablet 3 05/01/2023 Active tamsulosin (FLOMAX) 0.4 MG capsuleIndications: Neurogenic bladder Take 1 capsule (0.4 mg) by mouth daily 90 capsule 3 10/16/2023 Active nortriptyline (PAMELOR) 25 MG capsuleIndications: Nonintractable headache, unspecified chronicity pattern, unspecified headache type TAKE 2 CAPSULES BY MOUTH AT BEDTIME 180 capsule 3 01/04/2024 Active Active Problems Problem Noted Date Diagnosed Date Intracranial aneurysm 11/23/2019 Leukopenia 01/25/2015 Multiple sclerosis 09/15/2013 Encounters Date Type Department Care Team Description 01/02/2024 Refill [facility] [address] [address] Erick Hickman MD Medication Refill (Nortriptyline) from Last 3 Months Family History Medical [...] ??C (97.8 ??F) 05/25/2020 8 :33 AM GOLF TEACHER Respiratory Rate 16 05/25/2020 12:3 2 PM GOLF TEACHER Oxygen Saturation 100% 10/08/2023 9:2 2 AM CDT Inhaled Oxygen Concentration - - Weight 68.9 kg (151 lb 12.8 oz) 10/08/2023 9:22 AM CDT with out shoes Height 170.2 cm (5' 7) 08/16/2020 10:5 6 AM GOLF TEACHER Body Mass Index 23.78 08/16/2020 10:56 AM GOLF TEACHER Plan of Treatment Upcoming Encounters Date Type Department Care Team (Late st Contact Info) Description 05/26/2024 9:30 AM GOLF TEACHER Office Visit [facility] Multiple Sclerosis [address] [phone] Erick Hickman MD [address] [place] [address] - [id number] [place] [address] Health Maintenance Due Date Last Done Comments [...] GLUCOSE 05/23/2023 05/23/2020, 11/04, 11/23/2019 INFLUENZA VACCINE (#1) 2024 05/04/2015, 2009 ADVANCE CARE PLANNING 11/23/2024 11/24/2019 PHQ-2 (once [...] this topic Medical Devices Implanted Type Area Communications Representative Device Identifier Shelf Expiration Date Model / Serial / Lot Embolic Substance/Dev ice Web Sl 4x3-11/23/2019 Implanted:Qty : 1 on 11/23/2019 by Boy Rousseau MD Embolic Substance/D evice Right: Carotid MICROVENTION 02/18/2020 W4-4-3 / / [id number] Stent Neuroform [place] 3x21- 0 Implanted:Qty : 1 on 11/23/2019 by Boy Rousseau MD Stent Right: Carotid CHAYITO 11/17/2023 [id number] / / [id number] Procedures Procedure Name Priority Date/Time Associated Diagnosis Comments BASIC METABOLIC PANEL Routine 05/23/2020 8:48 AM GOLF TEACHER Intracranial aneurysm from Last 3 Months or Most Recently Relevant to Health Maintenance Results * Basic metabolic panel FUTURE anytime (05/23/2020 8:48 AM GOLF TEACHER) Sodium 141 133 - 144 mmol/L 05/23/2020 1:58 PM [facility] Potassium 3.6 3.4 - 5.3 mmol/L 05/23/2020 1:58 PM [facility] Chloride 105 94 - 109 mmol/L 05/23/2020 1:58 PM [facility] Carbon Dioxide 27 20 - 32 mmol/L 05/23/2020 2:26 PM [facility] Anion Gap 9 3 - 14 mmol/L 05/23/2020 2:26 PM [facility] Glucose 87 70 - 99 mg/dL 05/23/2020 2:26 PM [facility] Urea Nitrogen 14 7 - 30 mg/dL 05/23/2020 2:26 PM [facility] Creatinine 0.73 0.52 - 1.04 mg/dL 05/23/2020 2:26 PM [facility] GFR Estimate >90 >60 mL/min/{1 .73_m2} 05/23/2020 2:26 PM GOLF TEACHER [facility] Comment: Non GFR Calc Starting 06/22/2018, serum creatinine based estimated GFR (eGFR) will be calculated using the Chronic Kidney Disease Epidemiology Collaboration (CKD-EPI) equation. GFR Estimate If Black >90 >60 mL/min/{1 .73_m2} 05/23/2020 2:26 PM GOLF TEACHER [facility] Comment: GFR Calc Starting 06/22/2018, serum creatinine based estimated GFR (eGFR) will be calculated using the Chronic Kidney Disease Epidemiology Collaboration (CKD-EPI) equation. Calcium 9.5 8.5 - 10.1 mg/dL 05/23/2020 2:26 PM GOLF TEACHER [facility] Blood specimen (specimen) 05/23/2020 8:48 AM GOLF TEACHER 05/23/2020 8:53 AM GOLF TEACHER Lin Daily MD LAB - BLOOD ORDERABL ES [facility] [address] [place], [place] [address] [phone] [facility] [address] [place] [address] from Last 3 Months or Most Recently Relevant to Health Maintenance Care Teams Wood Furniture Assembler Relationship Specialty Start Date End Date Jacobo Campos MD [facility] [address] [place] [address] PCP - General Internal Medicine 09/08/13 Erick Hickman MD [address] [facility] [id number] [place] [address] Assigned Neuroscience Provider 04/27/20
--- OUTSIDE RECORDS SUMMARY | 2024-02-11 11:39 | XMS_ITS | Referral Summary ---
Author Organization [facility] Address [address] [place] [address] Care Team Providers Care Disintegrator Feeder Name Role Phone Jacobo Campos MD Primary Care Provider Erick Hickman MD Unavailable [phone] Encounters Date Type Department Care Team Description 01/02/2024 Refill [facility] Multiple Sclerosis [address] [address] Erick Hickman MD Medication Refill (Nortriptyline) from Last 3 Months Allergies Active Allergy [...] ??C (97.8 ??F) 05/25/2020 8 :33 AM IDENTITY MANAGEMENT CONSULTANT Respiratory Rate 16 05/25/2020 12:3 2 PM IDENTITY MANAGEMENT CONSULTANT Oxygen Saturation 100% 10/08/2023 9:2 2 AM CDT Inhaled Oxygen Concentration - - Weight 68.9 kg (151 lb 12.8 oz) 10/08/2023 9:22 AM CDT with out shoes Height 170.2 cm (5' 7) 08/16/2020 10:5 6 AM IDENTITY MANAGEMENT CONSULTANT Body Mass Index 23.78 08/16/2020 10:56 AM IDENTITY MANAGEMENT CONSULTANT Plan of Treatment Upcoming Encounters Date Type Department Care Team (Late st Contact Info) Description 05/26/2024 9:30 AM IDENTITY MANAGEMENT CONSULTANT Office Visit [facility] [address] [address] Erikc Hickman MD [address] [place] [address] - [id number] [place] [address] Medical Devices Implanted Type Area Fish Hatchery Assistant Device Identifier Shelf Expiration Date Model / Serial / Lot Embolic Substance/Dev ice Web Sl 4x3-11/23/2019 Implanted:Qty : 1 on 11/23/2019 by Boy Rousseau MD Embolic Substance/D evice Right: Carotid MICROVENTION 02/18/2020 W4-4-3 / / [id number] Stent Neuroform [place] 3x21- 0 Implanted:Qty : 1 on 11/23/2019 by Boy Rousseau MD Stent Right: Carotid CHAYITO 11/17/2023 [id number] / / [id number] Procedures Procedure Name Priority Date/Time Associated Diagnosis Comments BASIC METABOLIC PANEL Routine 05/23/2020 8:48 AM IDENTITY MANAGEMENT CONSULTANT Intracranial aneurysm from Last 3 Months or Most Recently Relevant to Health Maintenance Results * Basic metabolic panel FUTURE anytime (05/23/2020 8:48 AM IDENTITY MANAGEMENT CONSULTANT) Sodium 141 133 - 144 mmol/L 05/23/2020 1:58 PM [facility] Potassium 3.6 3.4 - 5.3 mmol/L 05/23/2020 1:58 PM [facility] Chloride 105 94 - 109 mmol/L 05/23/2020 1:58 PM [facility] Carbon Dioxide 27 20 - 32 mmol/L 05/23/2020 2:26 PM [facility] Anion Gap 9 3 - 14 mmol/L 05/23/2020 2:26 PM [facility] Glucose 87 70 - 99 mg/dL 05/23/2020 2:26 PM [facility] Urea Nitrogen 14 7 - 30 mg/dL 05/23/2020 2:26 PM IDENTITY MANAGEMENT CONSULTANT [facility] Creatinine 0.73 0.52 - 1.04 mg/dL 05/23/2020 2:26 PM [facility] GFR Estimate >90 >60 mL/min/{1 .73_m2} 05/23/2020 2:26 PM IDENTITY MANAGEMENT CONSULTANT [facility] Comment: Non GFR Calc Starting 06/22/2018, serum creatinine based estimated GFR (eGFR) will be calculated using the Chronic Kidney Disease Epidemiology Collaboration (CKD-EPI) equation. GFR Estimate If Black >90 >60 mL/min/{1 .73_m2} 05/23/2020 2:26 PM IDENTITY MANAGEMENT CONSULTANT [facility] Comment: GFR Calc Starting 06/22/2018, serum creatinine based estimated GFR (eGFR) will be calculated using the Chronic Kidney Disease Epidemiology Collaboration (CKD-EPI) equation. Calcium 9.5 8.5 - 10.1 mg/dL 05/23/2020 2:26 PM [facility] Blood specimen (specimen) 05/23/2020 8:48 AM IDENTITY MANAGEMENT CONSULTANT 05/23/2020 8:53 AM IDENTITY MANAGEMENT CONSULTANT Lin Daily MD LAB - BLOOD ORDERABL ES [facility] [address] [place] [address], [facility] [phone] [facility] [address] [place] [address] from Last 3 Months or Most Recently Relevant to Health Maintenance Care Teams Disintegrator Feeder Relationship Specialty Start Date End Date Jacobo Campos MD [facility] [address] [place] [address] PCP - General Internal Medicine 09/08/13 Erick Hickman MD [address] [place] [address] [id number], [place] [address] Assigned Neuroscience Provider 04/27/20
--- OUTSIDE RECORDS SUMMARY | 2024-02-11 11:39 | XMS_ITS | Encounter Summary ---
Author Organization [facility] Address [address] [place] [address]. [place] [address] Care Team Providers Care Foundry Laborer Coreroom Name Role Phone Jacobo Campos MD Primary Care Provider Erick Hickman MD Unavailable [phone] Boy Rousseau MD Unavailable Reason for Visit * Reason Onset Date Comments Appointment 06/04/2022 Encounter Details Date Type Department Care Team (Late st Contact Info) Description 06/04/2022 Telephone [facility] [address] [place] [address] Boy Rousseau MD [address] [place] [address] [id number] [place] [address] Appointment Social History Tobacco Use [...] encounter Miscellaneous Notes * Telephone Encounter - Riassa Mendoza - 06/04/2022 6:59 AM CST Defer scheduling- 2yr follow up- Video Visit with Dr. Rousseau . MRA PRIOR OAT CAPTAIN documented in this encounter Plan of Treatment Upcoming Encounters Date Type Department Care Team (Late st Contact Info) Description 05/26/2024 9:30 AM TOWBOAT CAPTAIN Office Visit [facility] [address] [phone] Erick Hickman MD [address] [place] [address] documented as of this encounter Visit Diagnoses Not on filedocumented in this encounter Care Teams Foundry Laborer Coreroom Relationship Specialty Start Date End Date Jacobo Campos MD [facility] [address] [place] [address] PCP - General Internal Medicine 09/08/13 Erick Hickman MD [address] [place] [address] Assigned Neuroscience Provider 04/27/20 Boy Rousseau MD [address] [place], [place] [address], [place] [address] Assigned Surgical Provider 04/27/20 12/26/23 documented as of this encounter
--- OUTSIDE RECORDS SUMMARY | 2024-02-11 11:39 | XMS_ITS | Encounter Summary ---
Author Organization [place] [facility] Address [address] [place] [address]. [place] [address] Care Team Providers Care Butt Maker Name Role Phone Jacobo Campos MD Primary Care Provider Guerita Holbrook RN Unavailable Erick Hickman MD Unavailable [phone] Boy Rousseau MD Unavailable [phone] Reason for Visit * Reason Onset Date Comments Call Back 10/17/2020 Encounter Details Date Type Department Care Team (Late st Contact Info) Description 10/17/2020 Telephone [facility] [address] [phone] Erick Hickman MD [address] [place] [address] - [id number] [place] [address] Call Back Social History Tobacco [...] Olga Vargas - 10/17/2020 3:53 PM CDT [facility] Call Center Phone Message May a detailed message be left on voicemail: yes Reason for Call: Other: Patient calling looking to speak with care team of Dr. Hickman - statesthat her provider in [place] is needing clarification/ confirmation if she is [...] st Contact Info) Description 05/26/2024 9:30 AM OPERATIONS ACCOUNTANT Office Visit [facility] [address] [address] Erick Hickman MD [address] [place] [address] - [id number] [place] [address] documented as of this encounter Visit Diagnoses Not on filedocumented in this encounter Care Teams Butt Maker Relationship Specialty Start Date End Date Jacobo Campos MD [facility] [address] [place] [address] PCP - General Internal Medicine 09/08/13 Guerita Holbrook, DIVINE Specialty Hand Sole Sewer Neurology 06/22/15 02/28/21 Erick Hickman MD [address] [facility] [id number] [address] Assigned Neuroscience Provider 04/27/20 Boy Rousseau MD [address] [place], [place] [id number], [place] [address] Assigned Surgical Provider 04/27/20 12/26/23 documented as of this encounter
--- OUTSIDE RECORDS SUMMARY | 2024-02-11 11:39 | XMS_ITS | Encounter Summary ---
Author Organization [facility] Address [address] [place] [address]. [place] [address] Care Team Providers Care Tool Maker Bench Name Role Phone Jacobo Capmos MD Primary Care Provider Erick Hickman MD Unavailable [phone] Boy Rousseau MD Unavailable Reason for Visit * Reason Onset Date Comments Medication Compliance Issues 03/31/2023 Cov erage exception form Encounter Details Date Type Department Care Team (Late st Contact Info) Description 03/31/2023 [facility] [address] [address] Erick Hickman MD [address] [place] [address] - [id number] [place] [address] Medication Compliance Issues (Coverage exception [...] Miscellaneous Notes * Telephone Encounter - Myesha Godoman - 03/31/2023 10:02 AM CDT [facility] Call Center Phone Message May a detailed message be left on voicemail: yes Reason for Call: Medication Question or concern regarding medication Prescription Clarification Name of Medication: teriflunomide (AUBAGIO) 14 MG tablet [[id number]] (Order [id number]) Prescribing Provider: Erick Hickman MD Pharmacy: NA What on the order needs clarification? Caller Stated the Pt would need a Coverage Exception letter in order to continue the process for the medication under the plan, the form can be filled out on [employer], the pts coverage ends April 05. Action Taken: Message routed to: [facility] Neurology Travel Screening: Not Applicable documented in this encounter Plan of Treatment Upcoming Encounters Date Type Department Care Team (Late st Contact Info) Description 05/26/2024 9:30 AM ACCURACY EXPERT Office Visit [facility] Multiple Sclerosis [address] [phone] Erick Hickman MD [address] [place] [address] documented as of this encounter Visit Diagnoses Not on filedocumented in this encounter Care Teams Tool Maker Bench Relationship Specialty Start Date End Date Jacobo Campos MD [facility] [address] [place] [address] PCP - General Internal Medicine 09/08/13 Erick Hickman MD [address] [place] [address] Assigned Neuroscience Provider 04/27/20 Boy Rousseau MD [address] [place], [place] [address], [place] [address] Assigned Surgical Provider 04/27/20 12/26/23 documented as of this encounter
--- OUTSIDE RECORDS SUMMARY | 2024-02-11 11:39 | XMS_ITS | Encounter Summary ---
Author Organization [place] [facility] Address [address] [place] [address] Care Team Providers Care Window Shade Cutter Name Role Phone Jacobo Campos MD Primary Care Provider Guerita Holbrook RN Unavailable Erick Hickman MD Unavailable [phone] Boy Rousseau MD Unavailable [phone] Reason for Visit * Reason Onset Date Comments letter and symptoms 01/26/2020 update worka bility letter and discuss symptoms. Encounter Details Date Type Department Care Team ([facility] st Contact Info) Description 01/26/2020 Telephone [facility] [address] [place] [address] 3rd [place] [address] Boy Rousseau MD [address] [place] [address] [id number] [place] [address] letter and symptoms (update workability [...] Jenae Oquendo Taken Imaging disc received from [facility] and sent to [facility] to be uploaded into PACs. 01/25/20 - Cervical Spine WO * Telephone Encounter - Charley Horowitz RN - 01/27/2020 3:37 PM CDT Called [facility] and they will fax c-spine MRI report from 01/24. They are unable to push images to [facility] and won't send a disc without an updated JED. I called the patient and she will call [facility] and have them release images. Report rec'd [...] primary care provider, Dr. Jacobo Campos at [facility]. Dr. Campos reportedly stated that patient has [...] and discuss MRI. * Patient will contact [facility] to have imaging sent/pushed to PACS Patient [...] at work. Fax number to [employer] [facility]: [phone] Please call once request is complete and to discuss. Action Taken: Other: [facility] NEUROSURGERy Travel Screening: Not Applicable documented in this encounter Plan of Treatment Upcoming Encounters Date Type Department Care Team (Late st Contact Info) Description 05/26/2024 9:30 AM CLIENT EXPERIENCE MANAGER Office Visit [facility] Sclerosis Clinic [address] [phone] Erick Hickman MD [address] [place] [address] documented as of this encounter Visit Diagnoses Not on filedocumented in this encounter Care Teams Window Shade Cutter Relationship Specialty Start Date End Date Jacobo Campos MD [facility] [address] [place] [address] PCP - General Internal Medicine 09/08/13 Guerita Holbrook, DIV[place] Specialty Sweatband Perforator Neurology 06/22/15 02/28/21 Erick Hickman MD [address] [place] [address] Assigned Neuroscience Provider 04/27/20 Boy Rousseau MD 909 [facility] [id number] [place] [address] Assigned Surgical Provider 04/27/20 12/26/23 documented as of this encounter
--- OUTSIDE RECORDS SUMMARY | 2024-02-11 11:39 | XMS_ITS | Encounter Summary ---
Author Organization [place] Address [address] [place] [address]. [place] [address] Care Team Providers Care Service Loss Control Consultant Name Role Phone Jacobo Campos MD Primary Care Provider Erick Hickman MD Unavailable Boy Rousseau MD Unavailable Reason for Visit * Reason Onset Date Comments Call Back 04/22/2023 Aubagio appeal Encounter Details Date Type Department Care Team (Late st Contact Info) Description 04/22/2023 Telephone [facility] Multiple Sclerosis Clinic [address] [address] Erick Hickman MD [address] [place] [address] - [id number] [place] [address] Call Back (Aubagio appeal ) [...] Nunez - 04/23/2023 10:45 AM CDT M [facility] Call Center Phone Message May a detailed message be left on voicemail: yes Reason for Call: Eliz calling to request a call back due to her insurance will no longer cover teriflunomide (AUBAGIO) 14 MG tablet. Eliz stated that [facility] stated that they did not receive theappeal on 04/16/23 for this medication and is requesting to resubmit the appeal to [facility]. Eliz is requesting a call to MIKA [employer] at to explain the reason she is needing to take teriflunomide (AUBAGIO) 14 MG tablet. Please call Eliz to discuss at your earliest convenience. Action Taken: Message routed to: [facility] MS Travel Screening: Not Applicable * Telephone Encounter - Suri Carr - 04/22/2023 12:45 PM CDT M [facility] Call Center Phone Message May a detailed message be left on voicemail: yes Reason for Call: Other: Pt is requesting a call back in regards to the appeal with [facility] for her Aubagio medication. Pt states BS hasn't received the appeal. Please call pt back with update at # [phone] Action Taken: Message routed to: [facility] Neurology Travel Screening: Not Applicable documented in this encounter Plan of Treatment Upcoming Encounters Date Type Department Care Team (Late st Contact Info) Description 05/26/2024 9:30 AM PROPELLER TESTER Office Visit [facility] Multiple Sclerosis Clinic [address] [address] Erick Hickman MD [address] [place] [address] - [id number] [place], [place] [address] documented as of this encounter Visit Diagnoses Not on filedocumented in this encounter Care Teams Service Loss Control Consultant Relationship Specialty Start Date End Date Jacobo Campos MD [facility] [address] [place] [address] PCP - General Internal Medicine 09/08/13 Erick Hickman MD 9 [facility]2121[place], [place] [address] Assigned Neuroscience Provider 04/27/20 Boy Rousseau MD [address] [place], [place] [address], [place] [address] Assigned Surgical Provider 04/27/20 12/26/23 documented as of this encounter
--- OUTSIDE RECORDS SUMMARY | 2024-02-11 11:39 | XMS_ITS | Encounter Summary ---
Author Organization [place] Address [address] [place] [address]. [place] [address] Care Team Providers Care Electrical Checkout Mechanic Name Role Phone Jacobo Campos MD Primary Care Provider Erick Hickman MD Unavailable [phone] Boy Rousseau MD Unavailable Reason for Visit * Reason Onset Date Comments Medication Question 04/10/2023 MS oral medi cation Encounter Details Date Type Department Care Team (Late st Contact Info) Description 04/10/2023 Telephone [facility] S[facility] [address] [address] Erick Hickman MD [address] [place] [address] - [id number] [place] [address] Medication Question (MS oral medication [...] Violet Cai - 04/10/2023 9:[address] [facility] Call Center Phone Message May a [...] discuss. Please call patient and advise at [phone]. Action Taken: Message routed to: [facility] MS Neurology Travel Screening: Not Applicable documented in this encounter Plan of Treatment Upcoming Encounters Date Type Department Care Team (Late st Contact Info) Description 05/26/2024 9:30 AM MEDICATION NURSE Office Visit [facility] Sclerosis Clinic [address] [phone] Erick Hickman MD [address] [place] [address] documented as of this encounter Visit Diagnoses Not on filedocumented in this encounter Care Teams Electrical Checkout Mechanic Relationship Specialty Start Date End Date Jacobo Campos MD [facility] [address] [place] [address] PCP - General Internal Medicine 09/08/13 Erick Hickman MD [address] [place] [address] Assigned Neuroscience Provider 04/27/20 Boy Rousseau MD [address] [place], [place] [address] [address] Assigned Surgical Provider 04/27/20 12/26/23 documented as of this encounter
--- OUTSIDE RECORDS SUMMARY | 2024-02-11 11:40 | XMS_ITS | Encounter Summary ---
Author Organization [facility] Address [address] [place] [address]. [place] [address] Care Team Providers Care Electrolytic De Scaler Name Role Phone Jacobo Campos MD Primary Care Provider Guerita Holbrook RN Unavailable Erick Hickman MD Unavailable [phone] Boy Rousseau MD Unavailable [phone] Reason for Visit * Reason Onset Date Comments Orders 07/12/2019 MRI head, Spine Encounter Details Date Type Department Care Team (Late st Contact Info) Description 07/12/2019 [facility] [address] [phone] Erick Hickman MD [address] [place] [address] - [id number] [place] [address] Orders (MRI head, Spine) Social [...] Orders faxed. Patient made aware of this. OWNER OPERATOR * Telephone Encounter - Charley Horowitz RN - 07/12/2019 10:37 AM CST Patient is scheduled to see Dr. Hickman 08/18; per the last office note, MD would like MRI of brain and c-spine. Orders placed on behalf of . Once orders co-signed, will fax to [facility] (fax [phone]). OWNER OPERATOR * Telephone Encounter - Carlos Godwin - 07/12/2019 10:26 AM OTR OWNER OPERATOR [facility] Call Center Phone Message May a detailed message be left on voicemail: yes Reason for Call: Order(s): Other: Reason for requested: MRI brain, spine Date needed: as soon as possible Provider name: Marylou Please send order to [place], [place] Action Taken: Message routed to: [facility] neuro OWNER OPERATOR documented in this encounter Plan of Treatment Upcoming Encounters Date Type Department Care Team (Late st Contact Info) Description 05/26/2024 9:30 AM OTR OWNER OPERATOR Office Visit [facility] Multiple Sclerosis [address] [phone] Erick Hickman MD [address] [place] [address] - [id number] [place] [address] documented as of this encounter Visit Diagnoses Diagnosis Multiple sclerosis (H)- Primary Multiple sclerosis documented in this encounter Care Teams Electrolytic De Scaler Relationship Specialty Start Date End Date Jacobo Campos MD [facility] [address] [place] [address] PCP - General Internal Medicine 09/08/13 Guerita Holbrook, RN Specialty Hat Braider Neurology 06/22/15 02/28/21 Erick Hickman MD 9 [facility] - [id number] [place] [address] Assigned Neuroscience Provider 04/27/20 Boy Rousseau MD 909 [facility] [id number] [address] Assigned Surgical Provider 04/27/20 12/26/23 documented as of this encounter
--- OUTSIDE RECORDS SUMMARY | 2024-02-11 11:40 | XMS_ITS | Clinical Summary ---
Author Organization [facility] Address [place], [place] [address] Care Team Providers Care Bin Worker Name Role Phone Jacobo Campos MD Primary Care Provider Allergies Active Allergy Reactions Criticality Noted Date Comments Glatiramer Acetate Other - Describe In Comment Field High 03/26/2015 Skin and fever Medications Medication Sig Dispensed Refills Start Date End Date Status multivitamin (MVI) tablet Take 1 tablet by mouth once daily. 0 02/26/20 10 Active cholecalciferol (VITAMIN D-3) 2,000 unit capsule Take 1 capsule by mouth once daily. 0 07/24/19 17 Active cyanocobalamin (VITAMIN B-12) 1,000 mcg tablet Take 1 tablet by mouth once daily. 0 07/24/19 17 Active estradiol 0.1 mg/24 hr (ESTRADERM; VIVELLE-DOT) patch twice and w 08/11/19 17 Active biotin 100 mg/gram powd Mix 1 Tablet in liquid then take by mouth. 100mg biotin tablet daily (unsure if this is exact dose) Active calcium carbonate-vitamin D3 500 mg(1,250mg) -200 unit pwpk Mix 1 Packet in liquid then take by mouth once daily. Active cranberry fruit extract (CRANBERRY POWDER ORAL) Take 1 Tablet by mouth once daily. Active ascorbic acid, vitamin C, 500 mg cap Take 1 Capsule by mouth once daily. Active vitamin E acid succinate (vitamin E succinate) 400 unit tab Take 400 units by mouth once daily. Active durable medical equipment (DME)Indications: Cervical disc herniation,Cervic al radiculopathy,Nec k pain, chronic Cervical Traction Unit for home use. Length of Use: 99 months 1 Each 12/22/19 21 Active teriflunomide (AUBAGIO) 14 mg tablet Take 1 tablet (14 mg) by mouth daily 90 Tablet 3 05/01/20 23 Active tiZANidine (ZANAFLEX) 4 mg tabletIndications :Lumbar radiculopathy TAKE 1 TABLET(4 MG) BY MOUTH EVERY 6 HOURS NEEDED FOR MUSCLE SPASM 24 Tablet 1 08/07/19 24 Active gabapentin (NEURONTIN) 300 mg capsuleIndication s:Lumbar radiculopathy TAKE 1 CAPSULE(300 MG) BY MOUTH THREE TIMES DAILY 270 Capsule 02/08/20 24 Active fluconazole (DIFLUCAN) 150 mg tablet Take 1 tablet by mouth one time. 1 tablet 0 02/18/20 16 024 Discontinued(*P atient states no longer taking) tamsulosin (FLOMAX) 0.4 mg capsuleIndication s:Neurogenic bladder Take 1 capsule by mouth once daily after a meal. 90 capsule 3 02/18/20 16 024 Discontinued(*P atient states no longer taking) metroNIDAZOLE 0.75% vaginal (METROGEL) 0.75 % vaginal gel 08/11/19 17 024 Discontinued(*P atient states no longer taking) oxyCODONE-acetami nophen (Percocet) 5-325 mg per tabletIndications :Lumbar radiculopathy Take 1 Tablet by mouth every 6 hours if needed for Pain. Max acetaminophen dose: 4000mg in 24 hrs. 24 Tablet 08/06/19 24 024 Discontinued(*M edication adjustment) LORazepam (ATIVAN) 1 mg tabletIndications :Anxiety due to invasive procedure Take 1 Tablet (1 mg) by mouth one time for 1 dose. 1 Tablet 08/12/19 24 024 Discontinued(*P atient states no longer taking) gabapentin (NEURONTIN) 300 mg capsuleIndication s:Lumbar radiculopathy Take 1 Capsule (300 mg) by mouth three times daily. 270 Capsule 11/07/19 24 024 Discontinued Active Problems Problem Noted Date Diagnosed Date Acetabular labrum tear, left, sequela 09/24/2023 Piriformis syndrome of left side 09/24/2023 Greater trochanteric bursitis of left hip 2023 Lumbar and sacral osteoarthritis 09/24/2023 Neurogenic bladder 02/18/2016 Recurrent UTI 02/18/2016 Multiple sclerosis 10/12/2010 COUGH 02/25/2000 Encounters Date Type Department Care Team Description 02/05/2024 Refill [facility] [address] [place] [address] Oneal Gamez MD Refill Request (Gabapentin) from Last 3 Months Immunizations Name Administration [...] Comments Blood Pressure 111/78 08/06/2023 1:51 PM CUPOLA HOIST OPERATOR Pulse 76 08/06/2023 1:51 PM CUPOLA HOIST OPERATOR Temperature 37 ??C (98.6 ??F) 08/06/2023 1:51 PM CUPOLA HOIST OPERATOR Respiratory Rate 16 09/02/2016 9:30 AM CUPOLA HOIST OPERATOR Oxygen Saturation 100% 08/06/2023 1:51 PM CUPOLA HOIST OPERATOR Inhaled Oxygen Concentration - - Weight 75.4 kg (166 lb 3.2 oz) 08/06/2023 1:51 P M CUPOLA HOIST OPERATOR Height 170 cm (5' 6.93) 08/04/2016 9:28 AM CUPOLA HOIST OPERATOR Body Mass Index 26.09 08/04/2016 9:28 AM CUPOLA HOIST OPERATOR Plan of Treatment Upcoming Encounters Date Type Department Care Team (Late st Contact Info) Description 03/31/2024 3:00 PM CDT Office Visit [facility] [address] [place] [address] Oneal Gamez MD [address] [place] [address] Health Maintenance Due Date Last Done Comments [...] Procedure Name Priority Date/Time Associated Diagnosis Comments SAND CASTER APPRENTICE THIN PREP PAP SCREEN IMAGED Routine 05/21/2007 4:49 PM CUPOLA HOIST OPERATOR Screening Malignant Neoplasms Cervix from Last 3 Months or Most Recently Relevant to Health Maintenance Results * SAND CASTER APPRENTICE THIN PREP PAP SCREEN IMAGED (05/21/2007 4:49 PM CUPOLA HOIST OPERATOR) CYTOLOGY ??CYTOPATHOLOGY REPORT ??[facility] ?? Status: Final Report ? [id number] ?? CLINICAL INFORMATION ?LMP ? : 05/02/07 ?Previous Pap Date ? : 2004 ?Previous PAP Dx ? : Negative for intraepithelial lesion or ?malignancy. ?Previous [place]/bx date : None ?Previous Colposcopy/Bx: None ?Hormone Usage ? : None ?Menstrual Status ?: Regular Periods ?Appearance of Cervix ??: NORMAL ?[place]/Bx done today ?: No ?HPV Request ? [...] 05/21/07 ?? ACCESSIONED: 05/21/07 ?? SIGNED: 06/07/07 [facility] Cervical (Cervical) 05/21/2007 4:49 PM CUPOLA HOIST OPERATOR 05/21/2007 4:45 PM CUPOLA HOIST OPERATOR Janeth Barrett NP PATHOLOGY/CYTOLOGY [facility] INTERNAL ZIP [address] [address] from Last 3 Months or Most Recently Relevant to Health Maintenance Care Teams Bin Worker Relationship Specialty Start Date End Date Jacobo Campos MD [address] [place], [place] [id number] PCP - General Internal Medicine 10/25/21
--- OUTSIDE RECORDS SUMMARY | 2024-02-11 11:40 | XMS_ITS | Encounter Summary ---
Author Organization [facility] Address [address] [place] [address] Care Team Providers Care Cider Maker Name Role Phone Jacobo Campos MD Primary Care Provider Guerita Holbrook RN Unavailable Erick Hickman MD Unavailable [phone] Boy Rousseau MD Unavailable [phone] Encounter Details Date Type Department Care Team [...] Shoaib Garduno - 08/19/2012 1:15 PM CST Plumber: Shoaib Garduno Status: Final - Signature Encounter: 2012-08-19 13:15:00.000 Type: Neurology Letter [facility] [address] [facility] [address] [place] [address] August 19, 2012 Jacobo Campos M.D. [facility] [address] [place] [address] RE: Eliz Hartman : 1970 DHRUV: 08/19/2012 [...] she is going on a vacation to [place] soon. Current medications are Rebif, vitamin D, [...] Strength is normal. Sensory examination is intact. Pnoyjr-tq-cqfy is done well. Her gait is normal, [...] aware of this while she is in [place]. She will continue to see me at least every six months. Sincerely, Shoaib Garduno MD Department of Neurology [facility] CL:11 Electronically signed by:Shoaib Garduno M.D. Aug 19 2012 4:30PM DIP LUBE OPERATOR LUBE OPERATOR documented in this encounter Plan of Treatment Upcoming Encounters Date Type Department Care Team (Late st Contact Info) Description 05/26/2024 9:30 AM DIP LUBE OPERATOR Office Visit [facility] Multiple Sclerosis Clinic [address] [phone] Erick Hickman MD 909 [facility]J [place] [address] documented as of this encounter Visit Diagnoses Not on filedocumented in this encounter Care Teams Cider Maker Relationship Specialty Start Date End Date Jacobo Campos MD [address] [address] PCP - General Internal Medicine 09/08/13 Guerita Holbrook, RN Specialty Pullboat Engineer Neurology 06/22/15 02/28/21 Erick Hickman MD 909 [facility] [address] Assigned Neuroscience Provider 04/27/20 Boy Rousseau MD [address] [place], [place] [address], [place] [address] Assigned Surgical Provider 04/27/20 12/26/23 documented as of this encounter
--- OUTSIDE RECORDS SUMMARY | 2024-02-11 11:40 | XMS_ITS | Encounter Summary ---
Author Organization [facility] Address [address] [place] [address] Care Team Providers Care Bench Patternmaker Metal Name Role Phone Jacobo Campos MD Primary Care Provider Guerita Holbrook RN Unavailable Erick Hickman MD Unavailable [phone] Boy Rousseau MD Unavailable [phone] Reason for Visit * Reason Onset Date Comments Prior Auth - Medication 06/23/2019 teriflun omide (AUBAGIO) 14 MG tablet Call Back 06/23/2019 Encounter Details Date Type Department Care Team (Late st Contact Info) Description 06/23/2019 Telephone [facility] [address] [phone] Erick Hickman MD [address] [place] [address] - [id number] [place], [place] [id number] Prior Auth - Medication (teriflunomide (AUBAGIO) 14 [...] 1:20 PM CST Aubagio Rx sent to [facility]. LY LAW PARALEGAL * Telephone Encounter - Tamara Mccullough - 07/07/2019 1:01 PM CST Images from the original note were not included. I spoke with the patient and she can now fill with [facility]. I've already added her insurance through [employer] [place] and obtained her copay card and added both to their system. A new RX for Aubagio will need to be sent to [facility] to initiate their new patient process. PDM Copay Card: [facility] Of [place] insurance: Thank you, Tamara Mccullough CPh-T Specialty [facility]acy [facility] [address] [place] [address] [email or web address] LY LAW PARALEGAL * Telephone Encounter - Charley Horowitz RN - 07/07/2019 11:48 AM CST Tamara, please see below. Patient states she changed insurance. Can you investigate what pharmacy sheshould use? LY LAW PARALEGAL * Telephone Encounter - Carlos Godwin - 07/07/2019 9:50 AM FAMILY LAW PARALEGAL [facility] Phone Message May a detailed message be left on voicemail: yes Reason for Call: Other: Aleishaalie calling to request a call back. She states she switched insurance to [employer] and pharmacies to [facility]. She would like to know if she's able to get her Aubagio. ([facility] , Phone# [phone]) Please call her back to discuss. Action Taken: Message routed to: [facility] neuro LY LAW PARALEGAL * Telephone Encounter - Joy Guevara - 06/24/2019 9:33 AM CST Images from the original note were not included. Prior Authorization Approval Authorization Effective Date: 06/24/2019 Authorization Expiration Date: 06/24/2020 Medication: teriflunomide (AUBAGIO) 14 MG tablet Approved Dose/Quantity: 30 Reference #: [id number] Insurance Company: [employer] [phone] Which Pharmacy is filling the prescription (Not needed for infusion/clinic administered): [facility] [place] [phone] [employer]- no interruption in therapy - previous PA was good until 07/08/2019 LY LAW PARALEGAL * Telephone Encounter - Joy Guevara - 06/23/2019 3:11 PM CST PA Initiation Medication: teriflunomide (AUBAGIO) 14 MG tablet Insurance Company: [employer] [phone] Pharmacy Filling the Rx: [facility] [place] [phone] [employer] [facility] Phone: Filling Pharmacy Fax: Start Date: 06/23/2019 Central Prior Authorization Team Filled out form and faxed it to [facility] fax# [phone] LY LAW PARALEGAL * Telephone Encounter - Felicia Morin - 06/23/2019 10:20 AM CST Images from the original note were not included. LY LAW PARALEGAL documented in this encounter Plan of Treatment Upcoming Encounters Date Type Department Care Team (Late st Contact Info) Description 05/26/2024 9:30 AM FAMILY LAW PARALEGAL Office Visit [facility] Multiple Sclerosis [address] [phone] Erick Hickman MD 909 [facility]121[place] [address] documented as of this encounter Visit Diagnoses Diagnosis Multiple sclerosis (H)- Primary Multiple sclerosis documented in this encounter Care Teams Bench Patternmaker Metal Relationship Specialty Start Date End Date Jacobo Campos MD [facility] [address] [place] [address] PCP - General Internal Medicine 09/08/13 Guerita Holbrook, DIVINE Specialty Strategic Marketing Associate Neurology 06/22/15 02/28/21 Erick Hickman MD [address] [place], [place] [id number], [place] [address] Assigned Neuroscience Provider 04/27/20 Boy Rousseau MD [address] [place], [place] [id number], [place] [address] Assigned Surgical Provider 04/27/20 12/26/23 documented as of this encounter
--- OUTSIDE RECORDS SUMMARY | 2024-02-11 11:40 | XMS_ITS | Encounter Summary ---
Author Organization [facility] Address [address] [place] [address]. [place] [address] Care Team Providers Care Manager Alliance Name Role Phone Jacobo Campos MD Primary Care Provider Guerita Holbrook RN Unavailable Erick Hickman MD Unavailable [phone] Boy Rousseau MD Unavailable [phone] Reason for Visit * Reason Onset Date Comments Refill Request 05/18/2019 AUBAGIO 14 MG ta blet Encounter Details Date Type Department Care Team (Late st Contact Info) Description 05/18/2019 [facility] Multiple Sclerosis Clinic [address] [phone] Erick Hickman MD [address] [place] [address] - [id number] [place] [address] Refill Request (AUBAGIO 14 MG [...] this. No further needs at this time. APHONE TYPIST * Telephone Encounter - Christopher De Anda - 05/18/2019 1:57 PM CST M [facility] Call Center Phone Message May a detailed message be left on voicemail: no Reason for Call: Medication Refill Request Has the patient contacted the pharmacy for the refill? Yes Name of medication being requested: AUBAGIO 14 MG tablet Provider who prescribed the medication: Dr. Hickman Pharmacy: [facility] Specialty Date medication is needed: Pt has [...] routed to: [facility] APHONE TYPIST documented in this encounter Plan of Treatment Upcoming Encounters Date Type Department Care Team (Late st Contact Info) Description 05/26/2024 9:30 AM DICTAPHONE TYPIST Office Visit [facility] Multiple Sclerosis Clinic [address] [address] Erick Hickman MD [address] [place] [address] - [id number] [place] [address] documented as of this encounter Visit Diagnoses Diagnosis Multiple sclerosis (H) Multiple sclerosis documented in this encounter Care Teams Manager Alliance Relationship Specialty Start Date End Date Jacobo Campos MD [facility] [address] [place] [address] PCP - General Internal Medicine 09/08/13 Guerita Holbrook, RN Specialty Charge Coordinator Neurology 06/22/15 02/28/21 Erick Hickman MD 9 [facility] - [id number] [address] Assigned Neuroscience Provider 04/27/20 Boy Rousseau MD [address] [place], [place] [address], [place] [address] Assigned Surgical Provider 04/27/20 12/26/23 documented as of this encounter
== END 2024-02-11 11:46 | disposition home or self-care (01) ==
LOC: ED 11:37
PROVIDERS: Emergency Provider Student in an Organized Health Care Education/Training Program; PCP Internal Medicine
DX: S51.851A Open bite of right forearm, initial encounter (principal); W54.0XXA Bitten by dog, initial encounter
CPT/HCPCS: 99282; 99283

== ENCOUNTER 2024-04-07 17:28 | Emergency (ER) | payer OTHER, SELFPAY ==
[2024-04-07 17:30] VITALS: BP 126/76; PULSE 84; RESP 14; TEMP 36.4; O2SAT 99; BMI 24.2
--- NOTE | 2024-04-07 17:40 | CRLHL7_ITS ---
For Patients: As a result of the Cures Act, medical imaging exams and procedure reports are released immediately into your electronic medical record. You may view this report before your referring provider. If you have questions, please contact your health care provider. Indication: Injury Technique: Three views of the left shoulder. Comparison: None. Findings: There is no acute displaced fracture, traumatic malalignment, or other significant abnormality. Impression: No acute displaced fracture or malalignment. Dictated by Teo Pearson MD @ 04/07/2024 6:32:48 PM (Electronically Signed)
--- NOTE | 2024-04-07 17:45 | ED_ITS ---
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 She says that she was getting a speed trailer in place, hold it to move it and felt a pop in her left shoulder. She has had pain since then, difficult to abduct the shoulder. No radiating pain, she has had injections in her shoulders before she is not certain of any specific diagnosis relating to her shoulders. Related Data Home Medications ?Medication ?Instructions ?Recorded ?Confirmed estradiol 0.1 mg/24 hr semiweekly 1 patch transdermal 07/02/22 03/23/24 transdermal patch nortriptyline 25 mg capsule 25 mg PO QDAY 07/02/22 04/07/24 tamsulosin 0.4 mg capsule 0.8 mg PO 07/02/22 03/23/24 teriflunomide 14 mg tablet 14 mg PO 07/02/22 03/23/24 (Aubagio) aspirin 81 mg chewable tablet 1 tab PO DAILY 07/15/22 04/07/24 Previous Rx's ?Medication ?Instructions ?Recorded nifedipine 10 mg capsule 10 mg PO BID #60 caps 06/15/23 tramadol 50 mg tablet 50 mg PO Q8H PRN pain #30 tabs 06/15/23 oxycodone 5 mg tablet 5 mg PO Q4H PRN pain #30 tabs 06/24/23 fluconazole 200 mg tablet 200 mg PO QDAY #2 tabs 09/01/23 estradiol 0.1 mg/24 hr semiweekly 1 patch transdermal 2XW #24 ea 12/09/23 transdermal patch metronidazole 0.75 % (37.5 mg/5 1 appful vaginal QDAY 5 days #70 12/09/23 gram) vaginal gel grams sulfamethoxazole 800 1 tab PO DAILY #60 tabs 12/09/23 mg-trimethoprim 160 mg tablet (Bactrim DS) Allergies Allergy/AdvReac Type Severity Reaction Status Date / Time glatiramer (copolymer 1) Allergy Verified 04/07/24 17:38 mannitol Allergy fever, Verified 04/07/24 17:38 myalgia, malaise, local rash [facility] Medical History (Updated 04/07/24 @ 18:58 by Tisha Rivera MD) Allergic reaction to drug ?T78.40XA - Allergy, unspecified, initial encounter (ICD-10) Chilblains ?T69.1XXA - Chilblains, initial encounter (ICD-10) Sciatica ?M54.30 - Sciatica, unspecified side (ICD-10) Foot pain ?M79.673 - Pain in unspecified foot (ICD-10) Yeast infection of the vagina ?B37.31 - Acute candidiasis of vulva and vagina (ICD-10) Subungual hematoma of digit of hand ?S60.10XA - Contusion of unspecified finger with damage to nail, initial encounter (ICD-10) Sepsis ?A41.9 - Sepsis, unspecified organism (ICD-10) Recurrent urinary tract infection ?N39.0 - Urinary tract infection, site not specified (ICD-10) Recurrent candidiasis of vagina ?B37.31 - Acute candidiasis of vulva and vagina (ICD-10) Postcoital urinary tract infection ?N39.0 - Urinary tract infection, site not specified (ICD-10) On hormone replacement therapy ?Z79.890 - Hormone replacement therapy (ICD-10) Leukopenia ?D72.819 - Decreased white blood cell count, unspecified (ICD-10) History of herpes zoster ?Z86.19 - Personal history of other infectious and parasitic diseases (ICD- 10) Hematochezia (04/03/09) ?K92.1 - Melena (ICD-10) Endometriosis (04/03/09) ?N80.9 - Endometriosis, unspecified (ICD-10) Eczema ?L30.9 - Dermatitis, unspecified (ICD-10) Bacterial vaginosis ?N76.0 - Acute vaginitis (ICD-10) ?B96.89 - Other specified bacterial agents as the cause of diseases classif ied elsewhere (ICD-10) Cerebral aneurysm (2020) ?I67.1 - Cerebral aneurysm, nonruptured (ICD-10) Multiple sclerosis ?G35 - Multiple sclerosis (ICD-10) Surgical History Status post hysterectomy with oophorectomy ?Z90.710 - Acquired absence of both cervix and uterus (ICD-10) ?Z90.721 - Acquired absence of ovaries, unilateral (ICD-10) History of exploratory laparotomy ?Z98.890 - Other specified postprocedural states (ICD-10) Status post right rotator cuff repair (10/10/16) ?Z98.890 - Other specified postprocedural states (ICD-10) Family History Sister Multiple sclerosis Breast cancer Maternal Grandmother Stroke Maternal Grandfather Stroke Paternal Grandfather Stroke Paternal Grandmother Breast cancer Mother Heart disease Pancreatic cancer Father Lung cancer Stomach cancer Social History Smoking Status: Never smoker Do you use any of these nicotine containing products: None Second hand tobacco smoke exposure: Yes How often do you have a drink containing alcohol: 2-4 times a month How many standard drinks containing alcohol do you have on a typical day: 1 or 2 How often do you have six or more drinks on one occasion: Never AUDIT-C Alcohol total score: 2 Non-prescribed substance use: former substance user Little interest or pleasure in doing things: not at all Feeling down, depressed, or hopeless: not at all service: No Exam Narrative: Exam Narrative: Vital signs reviewed In general, alert, nontoxic woman. Extremities: Examination of the left upper extremity shows normal contour of the shoulder. She has pain with active abduction, only able to abduct to about 30?. Passive abduction I am able to get her to 90? and she is able to lower from there. She has a little bit of tenderness diffusely over the shoulder. Clavicle is nontender. Distal CMS is normal. Skin: Warm and dry, well perfused. Const: Vital Signs, click to edit/add: Vital Signs - 24 hr 04/07/24 17:30 Temperature 97.5 F L Pulse Rate [Pulse Oximeter] 84 Respiratory Rate 14 Blood Pressure [Ri ght Upper Arm] 126/76 Pulse Oximetry 99 Oxygen Delivery Me thod Room Air Documenting provider has reviewed patient's vital signs: yes Course Course ED Course: X-ray of the left shoulder by my review are negative for fracture dislocation. Final radiology read as follows:Patient: Eliz Roth MR#: [id number] : 1970 Acct:[id number] Loc: ED Service Date: 04/07/[address]: Ordering Physician: Tisha Rivera M.D. Date of Service: 04/07/24 Procedure(s): XR shoulder LT min 2V Accession Number(s): [id number] cc: Tisha Rivera M.D.; Jacobo Campos M.D.~ For Patients: As a result of the Cures Act, medical imaging exams and procedure reports are released immediately into your electronic medical record. You may view this report before your referring provider. If you have questions, please contact your health care provider. Indication: Injury Technique: Three views of the left shoulder. Comparison: None. Findings: There is no acute displaced fracture, traumatic malalignment, or other significant abnormality. Impression: No acute displaced fracture or malalignment. Dictated by Teo Pearson MD @ 04/07/2024 6:32:48 PM Reviewed with patient. I would recommend a sling, she says she is unable to take any medications aside from Tylenol because of the history of brain aneurysm, request something different for pain. Will prescribe oxycodone for limited use, Tylenol 1000 mg 3 times daily. Given a note for work light duty, minimize use of left arm. We talked about making sure she is doing some range of motion several times a day. Orthopedic follow-up for evaluation of possible rotator cuff injury. Vital Signs Vital signs: Initial Vital Signs Temperature 97.5 F L 04/07/24 17:30 Temperature Source Temporal Artery Scan 04/07/24 17:30 Pulse Rate 84 04/07/24 17:30 Respiratory Rate 14 04/07/24 17:30 Blood Pressure 126/76 04/07/24 17:30 Blood Pressure Mean 92 04/07/24 17:30 Blood Pressure Position Sitting 04/07/24 17:30 Pulse Oximetry 99 04/07/24 17:30 Oxygen Delivery Method Room Air 04/07/24 17:30 Vital Signs Temperature 97.5 F L 04/07/24 17:30 Pulse Rate 84 04/07/24 17:30 Respiratory Rate 14 04/07/24 17:30 Blood Pressure 126/76 04/07/24 17:30 Pulse Oximetry 99 04/07/24 17:30 Oxygen Delivery Method Room Air 04/07/24 17:30 Temperature 97.5 F L 04/07/24 17:30 Pulse Rate 84 04/07/24 17:30 Respiratory Rate 14 04/07/24 17:30 Blood Pressure 126/76 04/07/24 17:30 Pulse Oximetry 99 04/07/24 17:30 Oxygen Delivery Method Room Air 04/07/24 17:30 Discharge Plan Discharge Clinical Impression: Injury of left shoulder Patient Disposition: Home, Self-Care Condition: Stable Instructions: Shoulder Sprain (ED) Additional Instructions: Sling for comfort, make sure that you do some gentle range of motion several times a day to avoid a frozen shoulder. Orthopedic follow-up recommended in the next week or so. Tylenol 1000 mg 3 times daily. Oxycodone if needed for uncontrolled pain. Ice liberally over the next few days. Orthopedic clinic: [phone] Prescriptions: No Action metronidazole 0.75 % (37.5mg/5 gram) gel 1 appful vaginal QDAY 5 Days Qty: 70 12RF estradiol 0.1 mg/24 hr patch semiweekly 1 patch transdermal 2XW Qty: 24 4RF Rx Instructions: apply 1 patch for 3 days alternating with 1 patch for 4 days each week for 3 wks per 4-wk cycle sulfamethoxazole-trimethoprim [Bactrim DS] 800-160 mg tablet 1 tab PO DAILY Qty: 60 3RF Rx Instructions: Take 1 tablet by mouth on the days you have intercourse. tamsulosin 0.4 mg capsule 0.8 mg PO estradiol 0.1 mg/24 hr patch semiweekly 1 patch transdermal nortriptyline 25 mg capsule 25 mg PO QDAY Aubagio 14 mg tablet 14 mg PO aspirin 81 mg tablet,chewable 1 tab PO DAILY nifedipine 10 mg capsule 10 mg PO BID Qty: 60 2RF tramadol 50 mg tablet 50 mg PO Q8H PRN (Reason: pain) Qty: 30 0RF oxycodone 5 mg tablet 5 mg PO Q4H PRN (Reason: pain) Qty: 30 0RF fluconazole 200 mg tablet 200 mg PO QDAY Qty: 2 12RF Follow Up/Referrals: Jacobo Campos MD [Primary Care Provider] - Stand Alone [facility]: [facility] Info Inst[facility]
--- OUTSIDE RECORDS SUMMARY | 2024-04-07 18:25 | XMS_ITS | Encounter Summary ---
Author Organization [facility] Address [address] [place] [address] Care Team Providers Care Cook Helper Meat Name Role Phone Jacobo Campos MD Primary Care Provider Erick Hickman MD Unavailable Boy Rousseau MD Unavailable [phone] Reason for Visit * Reason Onset Date Comments Prior Auth - Medication 03/09/2023 Aubagio (brand) 14MG Tablets (APPEAL DENIED) Encounter Details Date Type Department Care Team (Late st Contact Info) Description 03/09/2023 [facility] [place] Medical Advice [facility] Multiple Sclerosis Clinic [address] [address] Erick Hickman MD [address] [place] [address] - [id number] [place] [address] Prior Auth - Medication (Aubagio [...] were not included. Aubagio appeal denial letter: ITECTURAL JOB CAPTAIN * Telephone Encounter - Tamara Mccullough - 05/01/2023 10:43 AM CDT MEDICATION APPEAL DENIED Medication: AUBAGIO 14 MG PO TABS Insurance Company: [email or web address] Denial Date: 04/29/2023 Denial Rational: Must try/fail at least 2 preferred products: Teriflunomide, Gilenya, Mavenclad Second Level Appeal Information: N/A Patient Notified: Yes Central Prior Authorization Team ONLY: Second level appeals will be managed by the clinic staff andprovider. Please contact the [facility] Prior Authorization Team if additional information about the denial is needed. Spoke with insurance and confirmed the appeal was denied on 04/29/2023. A determination letter was mailed to the clinic. Request a copy be faxed as well. Thank you, Tamara Mccullough [facility] Liaison - Cardiology Neurology [place] [id number] [email or web address] * Telephone Encounter - Tamara Mccullough - 04/23/2023 2:00 PM CDT Confirmed that the appeal was resent 04/16, but was closed because they thought it was a duplicate.I spoke with Gege in [facility] and she provided another fax number to resend the appeal request. [phone] also sent to [phone] Thank you, Tamara Mccullough [facility] Liaison - Cardiology Neurology [facility] Sclerosis [address] [address] * Telephone Encounter - Tamara Mccullough - 04/16/2023 12:05 PM CDT Resubmitted appeal with update date, denial letter from 04/08, and OV from 09/2022. Thank you, Tamara Mccullough [facility] Liaison - Cardiology Neurology Multiple Sclerosis [facility] [address] [place] [address] * Telephone Encounter - Tamara Mccullough - 04/16/2023 10:50 AM CDT Spoke with [facility] Appeals and the customer success representative stated that since the appeal letter [...] the PA submission). Thank you, Tamara Mccullough [facility] Liaison - Cardiology Neurology Multiple Sclerosis [facility] [address] [place] [address] * Telephone Encounter - Tamara Mccullough - 04/08/2023 12:43 PM CDT Medication Appeal Initiation Medication: AUBAGIO 14 MG PO TABS Appeal Start Date: 04/08/2023 Insurance Company: [facility] Insurance Insurance Comments: Faxed and email appeal letter to [facility] of [place] Thank you, Tamara Mccullough [facility] Liaison - Cardiology Neurology Multiple Sclerosis [address] [address] * Telephone Encounter - Tamara Mccullough - 04/08/2023 12:32 PM CDT Images from the original note were not included. PRIOR AUTHORIZATION DENIED Medication: AUBAGIO 14 MG PO TABS Insurance Company: [facility] - Denial Date: 04/06/2023 Denial Rational: Must try/fail 3 alternative products: Mavenclad, Avonex, Gilenya - Must fail one additional drug since patient has already tried REbif and Glatiramer Appeal Information: Patient Notified: Yes * Telephone Encounter - Tamara Mccullough - 04/06/2023 11:03 AM CDT Images from the original note were not included. PA Initiation Medication: AUBAGIO 14 MG PO TABS Insurance Company: [facility] - Pharmacy Filling the Rx: [facility] - [place], [place] - [address] Filling Pharmacy Phone: Filling Pharmacy Fax: Start Date: 04/06/2023 Thank you, Tamara Mccullough [facility] Liaison - Cardiology Neurology Multiple Sclerosis [address] [address] [email or web address] * Telephone Encounter - Erick Hickman MD [...] are: 1) To source this through the online [facility] (cost as noted) 2) Switch to leflunomide (generic, not specifically approved for MS and may not be covered by insurance but should have very similar effects as Aubagio--it is converted in the body to the active ingredient in Aubagio). Insurance may not cover for this indication, would be about $25/month through [employer] Reviewed with a [employer] coupon. Other alternatives would include switching to a different medication or a trial off of disease modifying therapy. If she wants to discuss the latter two options she should make an appointment to discuss further. documented in this encounter Plan of Treatment Upcoming Encounters Date Type Department Care Team (Late st Contact Info) Description 05/24/2024 10:00 AM ARCHITECTURAL JOB CAPTAIN Virtual Visit [facility] Neurosurgery Clinic [address] [place] [address] Boy Rousseau MD [address] [place] [address] [id number] [place], [place] [id number] 05/26/2024 9:30 AM ARCHITECTURAL JOB CAPTAIN Office Visit [facility] [address] [phone] Erick Hickman MD [address] [place] [address] documented as of this encounter Visit Diagnoses Not on filedocumented in this encounter Care Teams Cook Helper Meat Relationship Specialty Start Date End Date Jacobo Campos MD [facility] [address] [place] [address] PCP - General Internal Medicine 09/08/13 Erick Hickman MD [address] [place] [address] Assigned Neuroscience Provider 04/27/20 Boy Rousseau MD [address] [place], [place] [address], [place] [address] Assigned Surgical Provider 04/27/20 12/26/23 documented as of this encounter
--- OUTSIDE RECORDS SUMMARY | 2024-04-07 18:25 | XMS_ITS | Encounter Summary ---
Author Organization [facility] Address [address] [place] [address] Care Team Providers Care Customer Engagement Specialist Name Role Phone Jacobo Campos MD Primary Care Provider Erick Hickman MD Unavailable [phone] Boy Rousseau MD Unavailable [phone] Reason for Visit * Reason Onset Date Comments Medication Request 04/30/2023 teriflunomide (AUBAGIO) 14 MG tablet Encounter Details Date Type Department Care Team (Late st Contact Info) Description 04/30/2023 Telephone [facility] [address] [phone] Erick Hickman MD [address] [place] [address] [id number] [place], [place] 354994 Medication Request (teriflunomide (AUBAGIO) 14 MG tablet [...] encounter Miscellaneous Notes * Telephone Encounter - Ayala Violet - 04/30/2023 4:09 PM CDT [facility] Phone Message May a detailed message be left on voicemail: yes Reason for Call: Medication Question or concern regarding medication Prescription Clarification Name of Medication: teriflunomide (AUBAGIO) 14 MG tablet Prescribing Provider: Dr. Hickman Pharmacy: [facility] specialty pharmacy What on the order needs clarification? Mikki from the [facility] specialty pharmacy is requesting [...] st Contact Info) Description 05/24/2024 10:00 AM SECURED ENTRANCE MONITOR Virtual Visit [facility] Neurosurgery [address] [place] [phone] Boy Rousseau MD [address] [place], [place] [address], [place] [address] 05/26/2024 9:30 AM SECURED ENTRANCE MONITOR Office Visit [facility] Multiple Sclerosis [address] [phone] Erick Hickman MD [address] [place], [place] [address], [place] [address] documented as of this encounter Visit Diagnoses Diagnosis Multiple sclerosis (H) Multiple sclerosis documented in this encounter Care Teams Customer Engagement Specialist Relationship Specialty Start Date End Date Jacobo Campos MD [facility] [address] [place] [address] PCP - General Internal Medicine 09/08/13 Erick Hickman MD [address] [facility] [address] - [id number] [place] [address] Assigned Neuroscience Provider 04/27/20 Boy Rousseau MD [address] [facility] [id number] [place] [address] Assigned Surgical Provider 04/27/20 12/26/23 documented as of this encounter
--- OUTSIDE RECORDS SUMMARY | 2024-04-07 18:25 | XMS_ITS | Encounter Summary ---
Author Organization [facility] Address [address] [place] [address]. [place] [address] Care Team Providers Care Furniture Repair Technician Name Role Phone Jacobo Campos MD Primary Care Provider Erick Hickman MD Unavailable Boy Rousseau MD Unavailable Reason for Visit * Reason Onset Date Comments Medication Question 04/10/2023 MS oral medi cation Encounter Details Date Type Department Care Team (Late st Contact Info) Description 04/10/2023 Telephone [facility] [address] [address] Erick Hickman MD [address] [place] [address] - [id number] [address] Medication Question (MS oral medication [...] Violet Cai - 04/10/2023 9:39 AM CDT [facility] Center Phone Message May a detailed [...] discuss. Please call patient and advise at [phone]. Action Taken: Message routed to: [facility] [place] Neurology Travel Screening: Not Applicable documented in this encounter Plan of Treatment Upcoming Encounters Date Type Department Care Team (Late st Contact Info) Description 05/24/2024 10:00 AM OR MANAGER Virtual Visit [facility] Neurosurgery Clinic [address] [place] [phone] Boy Rousseau MD [address] [place] [address] [address] 05/26/2024 9:30 AM OR MANAGER Office Visit [facility] Multiple Sclerosis [address] [phone] Erick Hickman MD [address] [place], [place] [address] [address] documented as of this encounter Visit Diagnoses Not on filedocumented in this encounter Care Teams Furniture Repair Technician Relationship Specialty Start Date End Date Jacobo Campos MD [facility] [address] [place] [address] PCP - General Internal Medicine 09/08/13 Erick Hickman MD [address] [facility] [address] - [id number] [place] [address] Assigned Neuroscience Provider 04/27/20 Boy Rousseau MD [address] [facility] [id number] [place] [address] Assigned Surgical Provider 04/27/20 12/26/23 documented as of this encounter
--- OUTSIDE RECORDS SUMMARY | 2024-04-07 18:25 | XMS_ITS | Encounter Summary ---
Author Organization [facility] Address [address] [place] [address]. [place] [address] Care Team Providers Care Dependency Program Director Name Role Phone Jacobo Campos MD Primary Care Provider Erick Hickman MD Unavailable [phone] Encounter Details Date Type Department Care Team (Late Contact Info) Description 02/19/[address] [facility] Neurology Clinic [address] [phone] Boy Rousseau MD [address] [place] [address] [id number] [place] [address] Social History Tobacco Use Types Packs/Day Years [...] Department Care Team (Late Contact Info) Description 05/24/2024 10:00 AM REPRESENTATIVE PERSONAL SERVICE Virtual Visit [facility] Neurosurgery Clinic [address] [phone] Boy Rousseau MD [address] [place] [address] [id number] [place] [address] 05/26/2024 9:30 AM REPRESENTATIVE PERSONAL SERVICE Office Visit [facility] Multiple Sclerosis [address] [phone] Erick Hickman MD [address] [place] [address] documented as of this encounter Visit Diagnoses Not on filedocumented in this encounter Care Teams Dependency Program Director Relationship Specialty Start Date End Date Jacobo Campos MD [facility] [address] [place] [address] PCP - General Internal Medicine 09/08/13 Erick Hickman MD [address] [place] [address] Assigned Neuroscience Provider 04/27/20 documented as of this encounter
--- OUTSIDE RECORDS SUMMARY | 2024-04-07 18:25 | XMS_ITS | Encounter Summary ---
Author Organization [facility] Address [address] [place] [address] Care Team Providers Care Computer Aide Name Role Phone Jacobo Campos MD Primary Care Provider Erick Hickman MD Unavailable [phone] Boy Rousseau MD Unavailable [phone] Reason for Referral * Diagnostic Imaging MRI (Routine) - Pending Review Specialty Diagnoses / Procedures Referred By Monica longoria Referred To Contact Radiology. Diagnoses Nonruptured cerebral aneurysm Procedures MRA Brain ([place] [facility]) wo Contrast Erick Hickman MD [address] [place] [address] Referral ID Status Reason Start Date Expiration Date V isits Requested Visits Authorized [id number] Pending Review 11/05/2023 11/04/2024 1 1 Reason for Visit * Reason Onset Date Comments MRA Order 10/14/2023 [facility] christiana arellano to request correction on MRA order Encounter Details Date Type Department Care Team ([facility] st Contact Info) Description 10/14/2023 Telephone [facility] Neurology Clinic [address] 3rd [place] [address] Erick Hickman MD [address] [place] [address] MRA Order ([facility] called to request correction on MRA order [...] RN - 11/05/2023 12:51 PM CDT Called [facility]. They confirmed that MRI brain and cervical spine were completed on 11/01.Both reports received. Requested images be pushed to [facility]. MRA was completed yesterday 11/03. Report not yet available, but will be faxed to us once finalized, and images pushed. Racquel Whitt RN * Telephone Encounter - Racquel Whitt RN - 10/14/2023 3:26 PM CDT Spoke with Denise at [facility]. Per their radiologist, only non- contrast MRA needed. Requesting new order for MRI w/o contrast. Routing request to Dr Hickman. Racquel Whitt RN * Telephone Encounter - Mellisa Gomez - 10/14/2023 2:15 PM CDT [facility] Phone Message May a detailed message be left on voicemail: yes Reason for Call: Denise from [facility] Imaging department called to request a correction on MRA order from , per Denise, protocol orders need only to say without contrast please re fax MRA order to: P# [phone] Action Taken: Message routed to: [facility] neurology Travel Screening: Not Applicable documented in this encounter Plan of Treatment Upcoming Encounters Date Type Department Care Team (Late st Contact Info) Description 05/24/2024 10:00 AM DITCH TENDER Virtual Visit [facility] Neurosurgery [address] 3rd [place] [phone] Boy Rousseau MD [address] [place], [place] [address] [address] 05/26/2024 9:30 AM DITCH TENDER Office Visit [facility] Multiple Sclerosis [address] [phone] Erick Hickman MD [address] [place], [place] [id number] [address] Scheduled Orders Name Type Priority Associated Diagnoses Orde r Schedule MRA Brain ([facility]) wo Contrast Imaging Routine Nonruptured cerebral aneurysm Expected: 11/05/2023 (Approximate), Expires: 11/04/2024 documented as of this encounter Visit Diagnoses Diagnosis Nonruptured cerebral aneurysm- Primary Cerebral aneurysm, nonruptured documented in this encounter Care Teams Computer Aide Relationship Specialty Start Date End Date Jacobo Campos MD [facility] [address] [place] [address] PCP - General Internal Medicine 09/08/13 Erick Hickman MD [address] [facility] SE - [id number] [place] [address] Assigned Neuroscience Provider 04/27/20 Boy Rousseau MD [address] [facility] [id number] [place], [place] [address] Assigned Surgical Provider 04/27/20 12/26/23 documented as of this encounter
--- OUTSIDE RECORDS SUMMARY | 2024-04-07 18:25 | XMS_ITS | Encounter Summary ---
Author Organization [facility] Address [address] [place] [address]. [place] [address] Care Team Providers Care Big Data Lead Name Role Phone Jacobo Campos MD Primary Care Provider Erick Hickman MD Unavailable [phone] Encounter Details Date Type Department Care Team (Late st Contact Info) Description 02/18/2024 Telephone [facility] Neurosurgery Clinic [address] 3rd [place] [address] Boy Rousseau MD [address] [place], [place] [id number] [place] [address] Social History Tobacco Use Types [...] encounter Miscellaneous Notes * Telephone Encounter - Diana Villar - 02/18/2024 5:16 PM CDT Called patient and scheduled appointment w/ Dr. Rousseau via [facility]. Patient will have theMRA done at [facility]. Sent message to Alecia Magallon to fax the order. -KB documented in this encounter Plan of Treatment Upcoming Encounters Date Type Department Care Team (Late st Contact Info) Description 05/24/2024 10:00 AM ORACLE ADF DEVELOPER Virtual Visit [facility] Neurosurgery [address] 3rd [place] [phone] Boy Rousseau MD [address] [place], [place] [address], [place] [address] 05/26/2024 9:30 AM ORACLE ADF DEVELOPER Office Visit [facility] Multiple Sclerosis [address] [phone] Erick Hickman MD [address] [place] [address] documented as of this encounter Visit Diagnoses Not on filedocumented in this encounter Care Teams Big Data Lead Relationship Specialty Start Date End Date Jacobo Campos MD [facility] [address] [place] [address] PCP - General Internal Medicine 09/08/13 Erick Hickman MD [address] [place] [address] Assigned Neuroscience Provider 04/27/20 documented as of this encounter
--- OUTSIDE RECORDS SUMMARY | 2024-04-07 18:25 | XMS_ITS | Encounter Summary ---
Author Organization [facility] Address [address] [place] [address]. [place] [address] Care Team Providers Care Cell Technician Name Role Phone Jacobo Campos MD Primary Care Provider Erick Hickman MD Unavailable Boy Rousseau MD Unavailable Reason for Visit * Reason Onset Date Comments Medication Compliance Issues 03/31/2023 Cov erage exception form Encounter Details Date Type Department Care Team (Late st Contact Info) Description 03/31/2023 [facility] Multiple Sclerosis Clinic [address] [address] Erick Hickman MD [address] [place] [address] - [id number] [place] [address] Medication Compliance Issues (Coverage exception [...] Myesha Goodman - 03/31/2023 10:02 AM CDT [facility] Call Center Phone Message May a detailed message be left on voicemail: yes Reason for Call: Medication Question or concern regarding medication Prescription Clarification Name of Medication: teriflunomide (AUBAGIO) 14 MG tablet [[id number]] (Order [id number]) Prescribing Provider: Erick Hickman MD Pharmacy: NA What on the order needs clarification? Caller Stated the Pt would need a Coverage Exception letter in order to continue the process for the medication under the plan, the form can be filled out on [employer], the pts coverage ends April 05. Action Taken: Message routed to: [facility] Neurology Travel Screening: Not Applicable documented in this encounter Plan of Treatment Upcoming Encounters Date Type Department Care Team (Late st Contact Info) Description 05/24/2024 10:00 AM CDL COMPANY FLATBED DRIVER Virtual Visit [facility] Neurosurgery Clinic [address] 3rd [place] [phone] Boy Rousseau MD [address] [place], [place] [id number], [place] [address] 05/26/2024 9:30 AM CDL COMPANY FLATBED DRIVER Office Visit [facility] Multiple Sclerosis [address] [phone] Erick Hickman MD [address] [place] [address] - [id number] [address] documented as of this encounter Visit Diagnoses Not on filedocumented in this encounter Care Teams Cell Technician Relationship Specialty Start Date End Date Jacobo Campos MD [facility] [address] [place] [address] PCP - General Internal Medicine 09/08/13 Erick Hickman MD [address] [facility] SE - [id number] [place] [address] Assigned Neuroscience Provider 04/27/20 Boy Rousseau MD [address] [facility] [id number] [place] [address] Assigned Surgical Provider 04/27/20 12/26/23 documented as of this encounter
--- OUTSIDE RECORDS SUMMARY | 2024-04-07 18:25 | XMS_ITS | Encounter Summary ---
Author Organization [facility] Address [address] [place] [address]. [place] [address] Care Team Providers Care Tierce Filler Name Role Phone Jacobo Campos MD Primary Care Provider Guerita Holbrook RN Unavailable Erick Hickman MD Unavailable [phone] Boy Rousseau MD Unavailable [phone] Reason for Visit * Reason Onset Date Comments Call Back 10/17/2020 Encounter Details Date Type Department Care Team (Late st Contact Info) Description 10/17/2020 Telephone [facility] Multiple Sclerosis Clinic [address] [address] Erick Hickman MD [address] [place] [address] - [id number] [place] [address] Call Back Social History Tobacco [...] Olga Vargas - 10/17/2020 3:53 PM CDT [facility] Phone Message May a detailed message be left on voicemail: yes Reason for Call: Other: Patient calling looking to speak with care team of Dr[facility] in [place] is needing clarification/ confirmation if she is [...] st Contact Info) Description 05/24/2024 10:00 AM BLAST HOLE DRILLER Virtual Visit [facility] Neurosurgery Clinic [address] 3rd [place] [phone] Boy Rousseau MD [address] [place], [place] [address], [place] [address] 05/26/2024 9:30 AM BLAST HOLE DRILLER Office Visit [facility] Multiple Sclerosis Clinic [address] [address] Erick Hickman MD [address] [place] [address] [id number], [place] [address] documented as of this encounter Visit Diagnoses Not on filedocumented in this encounter Care Teams Tierce Filler Relationship Specialty Start Date End Date Jacobo Campos MD [facility] [address] [place] [address] PCP - General Internal Medicine 09/08/13 Guerita Holbrook, RN Specialty Automation Manager Neurology 06/22/15 02/28/21 Erick Hickman MD [address] [place] [address] - [id number], [place] [address] Assigned Neuroscience Provider 04/27/20 Boy Rousseau MD [address] [place], [place] [address], [place] [address] Assigned Surgical Provider 04/27/20 12/26/23 documented as of this encounter
--- OUTSIDE RECORDS SUMMARY | 2024-04-07 18:25 | XMS_ITS | Encounter Summary ---
Author Organization [facility] Address [address] [place] [address]. [place] [address] Care Team Providers Care Show Dog Trainer Name Role Phone Jacobo Campos MD Primary Care Provider Erick Hickman MD Unavailable [phone] Reason for Referral * Diagnostic Imaging MRI (Routine) - Pending Review Specialty Diagnoses / Procedures Referred By Monica longoria Referred To Contact Radiology. Diagnoses Nonruptured cerebral aneurysm Procedures MRA Brain ([place] [facility]) w/o Contrast Boy Rousseau MD [address] [place], [place] [address], [place] [address] Referral ID Status Reason Start Date Expiration Date V isits Requested Visits Authorized [id number] Pending Review 02/11/2024 02/10/2025 1 1 Encounter Details Date Type Department Care Team (Late st Contact Info) Description 02/11/2024 Orders Only [facility] Neurology Clinic [address]rd [place] [address] Dian Gibbs RN MS (multiple sclerosis) (H) (Primary Dx); Nonruptured cerebral aneurysm Social History Tobacco Use Types Packs/Day Years [...] st Contact Info) Description 05/24/2024 10:00 AM ANTHROPOLOGY PROFESSOR Virtual Visit [facility] Neurosurgery [address] 3rd [place] [phone] Boy Rousseau MD [address] [place], [place] [address], [place] [address] 05/26/2024 9:30 AM ANTHROPOLOGY PROFESSOR Office Visit [facility] Multiple Sclerosis [address] [phone] Erick Hickman MD [address] [place], [place] [address], [place] [address] Scheduled Orders Name Type Priority Associated Diagnoses Orde r Schedule MRA Brain ([facility] [facility]) w/o Contrast Imaging Routine Nonruptured cerebral aneurysm Expected: 05/13/2024 (Approximate), Expires: 02/10/2025 documented as of this encounter Visit Diagnoses Diagnosis MS (multiple sclerosis) (H)- Primary Multiple sclerosis Nonruptured cerebral aneurysm Cerebral aneurysm, nonruptured documented in this encounter Care Teams Show Dog Trainer Relationship Specialty Start Date End Date Jacobo Campos MD [facility] [address] [place] [address] PCP - General Internal Medicine 09/08/13 Erick Hickman MD [address] [place] [address] Assigned Neuroscience Provider 04/27/20 documented as of this encounter
--- OUTSIDE RECORDS SUMMARY | 2024-04-07 18:25 | XMS_ITS | Encounter Summary ---
Author Organization [facility] Address [address] [place] [address] Care Team Providers Care Grant Manager Name Role Phone Jacobo Campos MD Primary Care Provider Erick Hickman MD Unavailable [phone] Boy Rousseau MD Unavailable [phone] Encounter Details Date Type Department Care Team (Late Contact Info) Description 04/30/2023 MyC Medical Advice [facility] [address] [place] [address] 1st [place] [address] Tamraa Mccullough Social History Tobacco Use Types Packs/Day [...] (Late Contact Info) Description 05/24/2024 10:00 AM CLOTH COVERED HELMET PULLER Virtual Visit [facility] Neurosurgery Clinic [address] 3rd [place] [address] Boy Rousseau MD [address] [place] [address] [id number] [place], [place] 8916[address] 05/26/2024 9:30 AM CLOTH COVERED HELMET PULLER Office Visit [facility] Multiple Sclerosis Clinic [address] [phone] Erick Hickman MD [address] [place] [address] documented as of this encounter Visit Diagnoses Not on filedocumented in this encounter Care Teams Grant Manager Relationship Specialty Start Date End Date Jacobo Campos MD [facility] [address] [place] [address] PCP - General Internal Medicine 09/08/13 Erick Hickman MD [address] [place] [address] Assigned Neuroscience Provider 04/27/20 Boy Rousseau MD [address] [place], [place] [address] [address] Assigned Surgical Provider 04/27/20 12/26/23 documented as of this encounter
--- OUTSIDE RECORDS SUMMARY | 2024-04-07 18:25 | XMS_ITS | Encounter Summary ---
Author Organization [facility] Address [address] [place] [address]. [place] [address] Care Team Providers Care Restaurant Busser Name Role Phone Jacobo Campos MD Primary Care Provider Erick Hickman MD Unavailable Boy Rousseau MD Unavailable Reason for Visit * Reason Onset Date Comments Call Back 04/22/2023 Aubagio appeal Encounter Details Date Type Department Care Team (Late st Contact Info) Description 04/22/2023 Telephone [facility] Multiple Sclerosis Clinic [address] [address] Erick Hickman MD [address] [place] [address] - [id number] [place] [address] Call Back (Aubagio appeal ) [...] Nunez - 04/23/2023 10:45 AM CDT [facility] Phone Message May a detailed message be left on voicemail: yes Reason for Call: Eliz calling to request a call back due to her insurance will no longer cover teriflunomide (AUBAGIO) 14 MG tablet. Eliz stated that BS stated that they did not receive theappeal on 04/16/23 for this medication and is requesting to resubmit the appeal to [facility]. Eliz is requesting a call to [employer] at to explain the reason she is needing to take teriflunomide (AUBAGIO) 14 MG tablet. Please call Eliz to discuss at your earliest convenience. Action Taken: Message routed to: [facility] ([facility]): MS Travel Screening: Not Applicable * Telephone Encounter - Suri Carr - 04/22/2023 12:45 PM CDT [facility] Call Center Phone Message May a detailed message be left on voicemail: yes Reason for Call: Other: Pt is requesting a call back in regards to the appeal with [facility] for her Aubagio medication. Pt states BS hasn't received the appeal. Please call pt back with update at # [phone] Action Taken: Message routed to: [facility] Neurology Travel Screening: Not Applicable documented in this encounter Plan of Treatment Upcoming Encounters Date Type Department Care Team (Late st Contact Info) Description 05/24/2024 10:00 AM WHITE SOURER Virtual Visit [facility] Neurosurgery Clinic [address] 3rd [place] [address] Boy Rousseau MD [address] [place] [address] [id number] [place], [place] [address] 05/26/2024 9:30 AM WHITE SOURER Office Visit [facility] Multiple Sclerosis Clinic [address] [phone] Erick Hickman MD [address] [place], [place] [address], [place] [address] documented as of this encounter Visit Diagnoses Not on filedocumented in this encounter Care Teams Restaurant Busser Relationship Specialty Start Date End Date Jacobo Campos MD [facility] [address] [place] [address] PCP - General Internal Medicine 09/08/13 Erick Hickman MD [address] [place] [address] Assigned Neuroscience Provider 04/27/20 Boy Rousseau MD [address] [place], [place] [address] [address] Assigned Surgical Provider 04/27/20 12/26/23 documented as of this encounter
--- OUTSIDE RECORDS SUMMARY | 2024-04-07 18:25 | XMS_ITS | Clinical Summary ---
Author Organization [facility] Address [address] [place] [address] Care Team Providers Care Forward Air Controller/Air Officer Name Role Phone Jacobo Campos MD Primary Care Provider Erick Hickman MD Unavailable [phone] Allergies Active Allergy Reactions Criticality Noted Date [...] hours as needed for mild pain Active tamsulosin (FLOMAX) 0.4 MG capsuleIndicatio ns:Neurogenic bladder Take 1 capsule (0.4 mg) by mouth daily 90 capsule 3 10/16/2023 Active nortriptyline (PAMELOR) 25 MG capsuleIndicatio ns:Nonintractabl e headache, unspecified chronicity pattern, unspecified headache type TAKE 2 CAPSULES BY MOUTH AT BEDTIME 180 capsule 3 01/04/2024 Active teriflunomide (AUBAGIO) 14 MG tabletIndication s:Multiple sclerosis (H) Take 1 tablet (14 mg) by mouth daily 90 tablet 3 04/06/2024 Active teriflunomide (AUBAGIO) 14 MG tabletIndication s:Multiple sclerosis (H) Take 1 tablet (14 mg) by mouth daily Only available through select specialty pharmacies 90 tablet 3 05/01/2023 Discontinued Active Problems Problem Noted Date Diagnosed Date Intracranial aneurysm 11/23/2019 Leukopenia 01/25/2015 Multiple sclerosis 09/15/2013 Encounters Date Type Department Care Team Description 04/05/2024 Refill [facility] Multiple Sclerosis Clinic [address] [phone] Erick Hickman MD Medication Refill (Teriflunomide ) 02/19/2024 Documentation Only [facility] Neurology Clinic [address] [phone] Boy Rousseau MD 02/18/2024 Telephone [facility] Neurosurgery Clinic [address] [phone] Boy Rousseau MD 02/11/2024 Orders Only [facility] Neurology [address] [phone] Dian Gibbs RN MS (multiple sclerosis) (H) (Primary Dx); Nonruptured cerebral aneurysm from Last 3 Months Family History Medical [...] ??C (97.8 ??F) 05/25/2020 8 :33 AM MACHINE PRINTER HOSE Respiratory Rate 16 05/25/2020 12:3 2 PM MACHINE PRINTER HOSE Oxygen Saturation 100% 10/08/2023 9:2 2 AM CDT Inhaled Oxygen Concentration - - Weight 68.9 kg (151 lb 12.8 oz) 10/08/2023 9:22 AM CDT with out shoes Height 170.2 cm (5' 7) 08/16/2020 10:5 6 AM MACHINE PRINTER HOSE Body Mass Index 23.78 08/16/2020 10:56 AM MACHINE PRINTER HOSE Plan of Treatment Upcoming Encounters Date Type Department Care Team (Late st Contact Info) Description 05/24/2024 10:00 AM MACHINE PRINTER HOSE Virtual Visit [facility] Neurosurgery Clinic [address] 3rd [place] [phone] Boy Rousseau MD [address] [place], [place] [address] [address] 05/26/2024 9:30 AM MACHINE PRINTER HOSE Office Visit [facility] Multiple Sclerosis Clinic [address] [phone] Erick Hickman MD [address] [place] [address] [id number] [address] Health Maintenance Due Date Last Done Comments ANNUAL REVIEW OF HM ORDERS 1972 CT COLONOGRAPHY 1972 FIT 1972 FLEX SIG 1972 MAMMO SCREENING 1972 URINE DRUG SCREEN 1972 YEARLY PREVENTIVE VISIT 1972 sDNA (Cologuard) 1972 COVID-19 Vaccine (#1) 1977 Pneumococcal Vaccine: Pediatrics (0 to 5 Years) and At-Risk Patients (6 to 64 Years) (1 of 2 - PCV) 1978 COLONOSCOPY 1982 COLORECTAL CANCER SCREENING 1982 HIV [...] 05/04/2015, 2009 ADVANCE CARE PLANNING 11/23/2024 11/24/2019 RSV VACCINE (1 - 1-dose 75+ series) 09/21/2047 PHQ-2 (once per calendar year) Completed 10/08/2023, [...] this topic Medical Devices Implanted Type Area Pathology Lab Technician Device Identifier Shelf Expiration Date Model / Serial / Lot Embolic Substance/Dev ice Web Sl 4x3-11/23/2019 Implanted:Qty : 1 on 11/23/2019 by Boy Rousseau MD [employer] Substance/D evice Right: Carotid MICROVENTION 02/18/2020 [id number] / / [id number] Stent Neuroform [place] 3x21- 0 Implanted:Qty : 1 on 11/23/2019 by Boy Rousseau MD Stent Right: Carotid CHAYITO 11/17/2023 [id number] / / [id number] Procedures Procedure Name Priority Date/Time Associated Diagnosis Comments BASIC METABOLIC PANEL Routine 05/23/2020 8:48 AM MACHINE PRINTER HOSE Intracranial aneurysm from Last 3 Months or Most Recently Relevant to Health Maintenance Results * Basic metabolic panel FUTURE anytime (05/23/2020 8:48 AM MACHINE PRINTER HOSE) Sodium 141 133 - 144 mmol/L 05/23/2020 1:58 PM [facility] Potassium 3.6 3.4 - 5.3 mmol/L 05/23/2020 1:58 PM [facility] Chloride 105 94 - 109 mmol/L 05/23/2020 1:58 PM [facility] Carbon Dioxide 27 20 - 32 mmol/L 05/23/2020 2:26 PM [facility] Anion Gap 9 3 - 14 mmol/L 05/23/2020 2:26 PM [facility] Glucose 87 70 - 99 mg/dL 05/23/2020 2:26 PM [facility] Urea Nitrogen 14 7 - 30 mg/dL 05/23/2020 2:26 PM [facility] Creatinine 0.73 0.52 - 1.04 mg/dL 05/23/2020 2:26 PM [facility] GFR Estimate >90 >60 mL/min/{1 .73_m2} 05/23/2020 2:26 PM [facility] Comment: Non GFR Calc Starting 06/22/2018, serum creatinine based estimated GFR (eGFR) will be calculated using the Chronic Kidney Disease Epidemiology Collaboration (CKD-EPI) equation. GFR Estimate If Black >90 >60 mL/min/{1 .73_m2} 05/23/2020 2:26 PM [facility] Comment: GFR Calc Starting 06/22/2018, serum creatinine based estimated GFR (eGFR) will be calculated using the Chronic Kidney Disease Epidemiology Collaboration (CKD-EPI) equation. Calcium 9.5 8.5 - 10.1 mg/dL 05/23/2020 2:26 PM [facility] Blood specimen (specimen) 05/23/2020 8:48 AM MACHINE PRINTER HOSE 05/23/2020 8:53 AM MACHINE PRINTER HOSE Lin Daily MD LAB - BLOOD ORDERABL ES [facility] [address] [address], [facility] [phone] [facility] [address] [place] [address] from Last 3 Months or Most Recently Relevant to Health Maintenance Care Teams Forward Air Controller/Air Officer Relationship Specialty Start Date End Date Jacobo Campos MD [facility] [address] [place] [address] PCP - General Internal Medicine 09/08/13 Erick Hickman MD [address] [place] [address] [address] Assigned Neuroscience Provider 04/27/20
--- OUTSIDE RECORDS SUMMARY | 2024-04-07 18:25 | XMS_ITS | Encounter Summary ---
Author Organization [facility] Address [address] [place] [address]. [place] [address] Care Team Providers Care Milk Handler Name Role Phone Jacobo Campos MD Primary Care Provider Erick Hickman MD Unavailable [phone] Reason for Visit * Reason Comments Medication Refill Teriflunomide Encounter Details Date Type Department Care Team (Late st Contact Info) Description 04/05/2024 Refill [facility] [address] [address] Erick Hickman MD [address] [place] [address] - [id number] [place] [address] Medication Refill (Teriflunomide ) Social History Tobacco Use Types Packs/Day [...] Telephone Encounter - Racquel Whitt RN - 04/06/2024 8:20 AM CDT Received refill request for teriflunomide from [facility]; Patient was last seen in October 2023 and has follow up appointment in May [address] Hickman. Refilled per MS refill protocol. Racquel Whitt, RN documented in this encounter Plan of Treatment Upcoming Encounters Date Type Department Care Team (Late st Contact Info) Description 05/24/2024 10:00 AM DRAG SEINER Virtual Visit [facility] Neurosurgery [address] 3rd [place] [phone] Boy Rousseau MD [address] [place], [place] [id number], [place] [address] 05/26/2024 9:30 AM DRAG SEINER Office Visit [facility] Multiple Sclerosis [address] [phone] Erick Hickman MD [address] [place] [address] documented as of this encounter Visit Diagnoses Diagnosis Multiple sclerosis (H) Multiple sclerosis documented in this encounter Care Teams Milk Handler Relationship Specialty Start Date End Date Jacobo Campos MD [facility] [address] [place] [address] PCP - General Internal Medicine 09/08/13 Erick Hickman MD [address] [place] [address] Assigned Neuroscience Provider 04/27/20 documented as of this encounter
--- OUTSIDE RECORDS SUMMARY | 2024-04-07 18:25 | XMS_ITS | Encounter Summary ---
Author Organization [facility] Address [address] [place] [address]. [place] [address] Care Team Providers Care Steward/Stewardess Railroad Dining Car Name Role Phone Jacobo Campos MD Primary Care Provider Erick Hickman MD Unavailable [phone] Reason for Visit * Reason Comments Medication Refill Nortriptyline Encounter Details Date Type Department Care Team (Late st Contact Info) Description 01/02/2024 Refill [facility] [address] [address] Erick Hickman MD [address] [place] [address] - [id number] [place] [address] Medication Refill (Nortriptyline) Social History Tobacco Use [...] CDT Received refill request for nortriptyline from [facility]; Patient was last seen in October 2023 and has follow up appointment in May [address] Hickman. Refilled per MS refill protocol. Racquel Whitt RN documented in this encounter Plan of Treatment Upcoming Encounters Date Type Department Care Team (Late st Contact Info) Description 05/24/2024 10:00 AM HEARING AIDE TECHNICIAN Virtual Visit [facility] Neurosurgery [address] 3rd [place] [phone] Boy Rousseau MD [address] [place], [place] [address], [place] [address] 05/26/2024 9:30 AM HEARING AIDE TECHNICIAN Office Visit [facility] Multiple Sclerosis [address] [phone] Erick Hickman MD [address] [place] [address] documented as of this encounter Visit Diagnoses Diagnosis Nonintractable headache, unspecified chronicity pattern, unspecified headache type documented in this encounter Care Teams Steward/Stewardess Railroad Dining Car Relationship Specialty Start Date End Date Jacobo Campos MD [facility] [address] [place] [address] PCP - General Internal Medicine 09/08/13 Erick Hickman MD [address] [place] [address] Assigned Neuroscience Provider 04/27/20 documented as of this encounter
--- OUTSIDE RECORDS SUMMARY | 2024-04-07 18:25 | XMS_ITS | Referral Summary ---
Author Organization [facility] Address [address] [place] [address] Care Team Providers Care Care Manager Name Role Phone Jacobo Campos MD Primary Care Provider Erick Hickman MD Unavailable Encounters Date Type Department Care Team Description 04/05/2024 Refill [facility] [address] [phone] Erick Hickman MD Medication Refill (Teriflunomide ) 02/19/2024 Documentation Only [facility] Neurology [facility] [address] [phone] Boy Rousseau MD 02/18/2024 Telephone [facility] Neurosurgery [facility] [address] [phone] Boy Rousseau MD 02/11/2024 Orders Only [facility] [address] [phone] Dian Gibbs RN MS (multiple sclerosis) (H) (Primary Dx); Nonruptured cerebral aneurysm from Last 3 Months Allergies Active Allergy [...] select specialty pharmacies 90 tablet 3 05/01/2023 4 Discontinued Active Problems Problem Noted Date Diagnosed [...] ??C (97.8 ??F) 05/25/2020 8 :33 AM WET MILLING WHEEL OPERATOR Respiratory Rate 16 05/25/2020 12:3 2 PM WET MILLING WHEEL OPERATOR Oxygen Saturation 100% 10/08/2023 9:2 2 AM CDT Inhaled Oxygen Concentration - - Weight 68.9 kg (151 lb 12.8 oz) 10/08/2023 9:22 AM CDT with out shoes Height 170.2 cm (5' 7) 08/16/2020 10:5 6 AM WET MILLING WHEEL OPERATOR Body Mass Index 23.78 08/16/2020 10:56 AM WET MILLING WHEEL OPERATOR Plan of Treatment Upcoming Encounters Date Type Department Care Team (Late st Contact Info) Description 05/24/2024 10:00 AM WET MILLING WHEEL OPERATOR Virtual Visit [facility]surgery [facility] [address] 3rd [place] [phone] Boy Rousseau MD [address] [place], [place] [address], [place] [address] 05/26/2024 9:30 AM WET MILLING WHEEL OPERATOR Office Visit [facility] [address] [phone] Erick Hickman MD [address] [place] [address] - [id number], [place] [address] Medical Devices Implanted Type Area Acls Specialist Device Identifier Shelf Expiration Date Model / Serial / Lot Embolic Substance/Dev ice Web Sl 4x3-11/23/2019 Implanted:Qty : 1 on 11/23/2019 by Boy Rousseau MD Embolic Substance/D evice Right: Carotid MICROVENTION 02/18/2020 [id number] / / [id number] Stent Neuroform Dagmar 3x21- 0 Implanted:Qty : 1 on 11/23/2019 by Boy Rousseau MD Stent Right: Carotid CHAYITO 11/17/2023 [id number] / / [id number] Procedures Procedure Name Priority Date/Time Associated Diagnosis Comments BASIC METABOLIC PANEL Routine 05/23/2020 8:48 AM WET MILLING WHEEL OPERATOR Intracranial aneurysm from Last 3 Months or Most Recently Relevant to Health Maintenance Results * Basic metabolic panel FUTURE anytime (05/23/2020 8:48 AM WET MILLING WHEEL OPERATOR) Sodium 141 133 - 144 mmol/L 05/23/2020 1:58 PM [facility] Potassium 3.6 3.4 - 5.3 mmol/L 05/23/2020 1:58 PM [facility] Chloride 105 94 - 109 mmol/L 05/23/2020 1:58 PM [facility] Carbon Dioxide 27 20 - 32 mmol/L 05/23/2020 2:[address] [facility] Anion Gap 9 3 - 14 mmol/L 05/23/2020 2:[address] [facility] Glucose 87 70 - 99 mg/dL 05/23/2020 2:[address] [facility] Urea Nitrogen 14 7 - 30 mg/dL 05/23/2020 2:[address] [facility] Creatinine 0.73 0.52 - 1.04 mg/dL 05/23/2020 2:[address] [facility] GFR Estimate >90 >60 mL/min/{1 .73_m2} 05/23/2020 2:[address] [facility] Comment: Non GFR Calc Starting 06/22/2018, serum creatinine based estimated GFR (eGFR) will be calculated using the Chronic Kidney Disease Epidemiology Collaboration (CKD-EPI) equation. GFR Estimate If Black >90 >60 mL/min/{1 .73_m2} 05/23/2020 2:[address] [facility] Comment: GFR Calc Starting 06/22/2018, serum creatinine based estimated GFR (eGFR) will be calculated using the Chronic Kidney Disease Epidemiology Collaboration (CKD-EPI) equation. Calcium 9.5 8.5 - 10.1 mg/dL 05/23/2020 2:26 PM WET MILLING WHEEL OPERATOR [facility] Blood specimen (specimen) 05/23/2020 8:48 AM WET MILLING WHEEL OPERATOR 05/23/2020 8:53 AM WET MILLING WHEEL OPERATOR Lin Daily MD LAB - BLOOD ORDERABL ES [facility] [address] [place] [address], [facility] [phone] [facility] [address] [place] [address] from Last 3 Months or Most Recently Relevant to Health Maintenance Care Teams Care Manager Relationship Specialty Start Date End Date Jacobo Campos MD [facility] [address] [place] [address] PCP - General Internal Medicine 09/08/13 Erick Hickman MD [address] [place], [place] [address], [place] [address] Assigned Neuroscience Provider 04/27/20
--- OUTSIDE RECORDS SUMMARY | 2024-04-07 18:25 | XMS_ITS | Encounter Summary ---
Author Organization [facility] Address [address] [place] [address] Care Team Providers Care Line Up Examiner Name Role Phone Jacobo Campos MD Primary Care Provider Guerita Holbrook RN Unavailable Erick Hickman MD Unavailable [phone] Boy Rousseau MD Unavailable [phone] Reason for Visit * Reason Onset Date Comments Call Back 11/28/2020 medical card for flight Encounter Details Date Type Department Care Team (Late st Contact Info) Description 11/28/2020 Telephone [facility] [address] [place] [address] Boy Rousseau MD [address] [place] [address] [id number] [place] [address] Call Back (medical card for [...] SUBSTANCE/DEVICE WEB SL 4X3 STENT NEUROFORM ATLAS [id number] 11/23/2019 documented in this encounter Miscellaneous Notes [...] Joselyn Everett - 11/28/2020 11:36 AM CDT [facility] Call Center Phone Message May [...] st Contact Info) Description 05/24/2024 10:00 AM MANAGED SERVICES SALES CONSULTANT Virtual Visit [facility] [address] 3rd [place] [address] Boy Rousseau MD [address] [place] [address] [id number] [place] [address] 05/26/2024 9:30 AM MANAGED SERVICES SALES CONSULTANT Office Visit [facility] [address] [phone] Erick Hickman MD [address] [place] [address] documented as of this encounter Visit Diagnoses Not on filedocumented in this encounter Care Teams Line Up Examiner Relationship Specialty Start Date End Date Jacobo Campos MD [facility] [address] [place] [address] PCP - General Internal Medicine 09/08/13 Guerita Holbrook, RN Specialty Universal Grinder Tool Neurology 06/22/15 02/28/21 Erick Hickman MD [address] [place] [address] Assigned Neuroscience Provider 04/27/20 Boy Rousseau MD [address] [place], [place] [address] [address] Assigned Surgical Provider 04/27/20 12/26/23 documented as of this encounter
--- OUTSIDE RECORDS SUMMARY | 2024-04-07 18:26 | XMS_ITS | Encounter Summary ---
Author Organization [facility] Address [address] [place] [address]. [place] [address] Care Team Providers Care Carbonizer Name Role Phone Jacobo Campos MD Primary Care Provider Guerita Holbrook RN Unavailable Erick Hickman MD Unavailable [phone] Boy Rousseau MD Unavailable [phone] Reason for Visit * Reason Onset Date Comments Patient Request 2019 Encounter Details Date Type Department Care Team (Late st Contact Info) Description 2019 Telephone [facility] Multiple Sclerosis Clinic [address] [phone] Erick Hickman MD [address] [place] [address] - [id number] [place] [address] Patient Request Social History Tobacco [...] a PA. She states it is a [employer] vendor that send out the authorization. It is suppose to come from her primary care provider and MD performing procedure. Patient just wants to ensure that procedure will be covered. Message sent to Financial Counseling to see if they are able to assist. * Telephone Encounter - Michelle Obrien - 2019 9:27 AM CDT [facility] Phone Message May a detailed message be left on voicemail: yes Reason for Call: Other: Pt requesting a referral be sent to her insurance regarding a cerebral angiogram that she is having done on 10/04. Pt requesting call back to discuss Action Taken: Message routed to: [facility] ([facility] neuro Travel Screening: Not Applicable documented in this encounter Plan of Treatment Upcoming Encounters Date Type Department Care Team (Late st Contact Info) Description 05/24/2024 10:00 AM FISHING BOAT CAPTAIN Virtual Visit [facility] Neurosurgery [facility] [address] 3rd [place] [phone] Boy Rousseau MD [address] [place], [place] [address] [address] 05/26/2024 9:30 AM FISHING BOAT CAPTAIN Office Visit [facility] Sclerosis [facility] [address] [phone] Erick Hickman MD [address] [place] [address] [id number] [place], [place] 384984 documented as of this encounter Visit Diagnoses Not on filedocumented in this encounter Care Teams Carbonizer Relationship Specialty Start Date End Date Jacobo Campos MD [facility] [address] [place] [address] PCP - General Internal Medicine 09/08/13 Guerita Holbrook, RN Specialty Laborer Pipeline Neurology 06/22/15 02/28/21 Erick Hickman MD [address] [place] [address] - [id number] [address] Assigned Neuroscience Provider 04/27/20 Boy Rousseau MD [address] [place], [place] [address] [address] Assigned Surgical Provider 04/27/20 12/26/23 documented as of this encounter
--- OUTSIDE RECORDS SUMMARY | 2024-04-07 18:26 | XMS_ITS | Encounter Summary ---
Author Organization [facility] Address [address] [place] [address] Care Team Providers Care Park Landscape Architect Name Role Phone Jacobo Campos MD Primary Care Provider Guerita Holbrook RN Unavailable Erick Hickman MD Unavailable [phone] Boy Rousseau MD Unavailable [phone] Reason for Visit * Reason Onset Date Comments letter and symptoms 01/26/2020 update worka bility letter and discuss symptoms. Encounter Details Date Type Department Care Team ([facility] st Contact Info) Description 01/26/2020 Telephone [facility] [address] [place] [address] 3rd [place] [address] Boy Rousseau MD [address] [place] [address] [id number] [place] [address] letter and symptoms (update workability [...] Jenae Oquendo Taken Imaging disc received from [facility] and sent to [facility] to be uploaded into PACs. 01/25/20 - Cervical Spine WO * Telephone Encounter - Charley Horowitz RN - 01/27/2020 3:37 PM CDT Called [facility] and they will fax c-spine MRI report from 01/24. They are unable to push images to [facility] and won't send a disc without an updated JED. I called the patient and she will call [facility] and have them release images. Report rec'd via fax. This will be scanned to chart. aware. * Telephone Encounter - Charley Horowizt RN - 01/27/2020 12:24 PM CDT Called [...] primary care provider, Dr. Jacobo Campos at [facility]. Dr. Campos reportedly stated that [...] and discuss MRI. * Patient will contact [facility] to have imaging sent/pushed to PACS Patient [...] at work. Fax number to [employer] [facility]: [phone] Please call once request is complete and to discuss. Action Taken: Other: [facility] NEUR[facility]GER[facility] Travel Screening: Not Applicable documented in this encounter Plan of Treatment Upcoming Encounters Date Type Department Care Team (Late st Contact Info) Description 05/24/2024 10:00 AM ESTHETICIAN SPA Virtual Visit [facility] Neurosurgery Clinic [address] 3rd [place] [phone] Boy Rousseau MD [address] [place], [place] [address] [address] 05/26/2024 9:30 AM ESTHETICIAN SPA Office Visit [facility] Multiple Sclerosis Clinic [address] [phone] Erick Hickman MD [address] [place] [address] [id number] [address] documented as of this encounter Visit Diagnoses Not on filedocumented in this encounter Care Teams Park Landscape Architect Relationship Specialty Start Date End Date Jacobo Campos MD [facility] [address] [place] [address] PCP - General Internal Medicine 09/08/13 Guerita Holbrook, RN Specialty Chicken Hanger Neurology 06/22/15 02/28/21 Erick Hickman MD 9 [facility] - [id number] [address] Assigned Neuroscience Provider 04/27/20 Boy Rousseau MD [address] [place], [place] [address], [place] 293245 Assigned Surgical Provider 04/27/20 12/26/23 documented as of this encounter
--- OUTSIDE RECORDS SUMMARY | 2024-04-07 18:26 | XMS_ITS | Encounter Summary ---
Author Organization [facility] Address [address] [place] [address]. [place] [address] Care Team Providers Care Needle Loom Setter Name Role Phone Jacobo Campos MD Primary Care Provider Guerita Holbrook RN Unavailable Erick Hickman MD Unavailable [phone] Boy Rousseau MD Unavailable [phone] Reason for Visit * Reason Onset Date Comments Refill Request 05/18/2019 AUBAGIO 14 MG ta blet Encounter Details Date Type Department Care Team (Late st Contact Info) Description 05/18/2019 [facility] Multiple Sclerosis Clinic [address] [phone] Erick Hickman MD [address] [place] [address] - [id number] [place] [address] Refill Request (AUBAGIO 14 MG [...] this. No further needs at this time. TAL MARKETING EXECUTIVE * Telephone Encounter - Christopher De Anda - 05/18/2019 1:57 PM CST [facility] Phone Message May a detailed message be left on voicemail: no Reason for Call: Medication Refill Request Has the patient contacted the pharmacy for the refill? Yes Name of medication being requested: AUBAGIO 14 MG tablet Provider who prescribed the medication: Dr. Hickman Pharmacy: [facility] Specialty Date medication is needed: Pt has [...] routed to: [facility] NEUROLOGY ADULT [facility] TAL MARKETING EXECUTIVE documented in this encounter Plan of Treatment Upcoming Encounters Date Type Department Care Team (Late st Contact Info) Description 05/24/2024 10:00 AM DIGITAL MARKETING EXECUTIVE Virtual Visit [facility] [address] 3rd [place] [phone] Boy Rousseau MD [address] [place], [place] [address], [place] [address] 05/26/2024 9:30 AM DIGITAL MARKETING EXECUTIVE Office Visit [facility] Sclerosis [facility] [address] [phone] Erick Hickman MD [address] [place] [address] - [id number] [place], [place] [address] documented as of this encounter Visit Diagnoses Diagnosis Multiple sclerosis (H) Multiple sclerosis documented in this encounter Care Teams Needle Loom Setter Relationship Specialty Start Date End Date Jacobo Campos MD [facility] [address] [place] [address] PCP - General Internal Medicine 09/08/13 Guerita Holbrook, DIVINE Specialty Advisor Advocate Angel Co Founder Neurology 06/22/15 02/28/21 Erick Hickman MD [address] [place], [place] [id number], [place] [address] Assigned Neuroscience Provider 04/27/20 Boy Rousseau MD [address] [place], [place] [id number], [place] [address] Assigned Surgical Provider 04/27/20 12/26/23 documented as of this encounter
--- OUTSIDE RECORDS SUMMARY | 2024-04-07 18:26 | XMS_ITS | Encounter Summary ---
Author Organization [facility] Address [address] [place] [address] Care Team Providers Care Urban Renewal Manager Name Role Phone Jacobo Campos MD Primary Care Provider Guerita Holbrook RN Unavailable Erick Hickman MD Unavailable [phone] Boy Rousseau MD Unavailable [phone] Reason for Visit * Reason Onset Date Comments Appointment 12/08/2019 Upcoming appoint ment question Encounter Details Date Type Department Care Team (Late st Contact Info) Description 12/08/2019 Telephone [facility] Neurosurgery [address] 3rd [place] [address] Boy Rousseau MD [address] [place] [address] [id number] [place] [address] Appointment (Upcoming appointment question) Social [...] Antonina Torres - 12/08/2019 8:39 AM CDT [facility] Phone Message May a detailed [...] st Contact Info) Description 05/24/2024 10:00 AM RIBBON HANKING MACHINE OPERATOR Virtual Visit [facility] Neurosurgery [address] 3rd [place] [phone] Boy Rousseau MD [address] [place], [place] [address], [place] [address] 05/26/2024 9:30 AM RIBBON HANKING MACHINE OPERATOR Office Visit [facility] Multiple Sclerosis [address] [phone] Erick Hickman MD [address] [place] [address] - [id number] [address] documented as of this encounter Visit Diagnoses Not on filedocumented in this encounter Care Teams Urban Renewal Manager Relationship Specialty Start Date End Date Jacobo Campos MD [facility] [address] [place] [address] PCP - General Internal Medicine 09/08/13 Guerita Holbrook, RN Specialty Pump House Technician Neurology 06/22/15 02/28/21 Erick Hickman MD 9 [facility] - [id number] [address] Assigned Neuroscience Provider 04/27/20 Boy Rousseau MD [address] [place], [place] [address] [address] Assigned Surgical Provider 04/27/20 12/26/23 documented as of this encounter
--- OUTSIDE RECORDS SUMMARY | 2024-04-07 18:26 | XMS_ITS | Encounter Summary ---
Author Organization [facility] Address [address] [place] [address]. [place] [address] Care Team Providers Care Transportation Dispatch Manager Name Role Phone Jacobo Campos MD Primary Care Provider Guerita Holbrook RN Unavailable Erick Hickman MD Unavailable [phone] Boy Rousseau MD Unavailable [phone] Reason for Visit * Reason Onset Date Comments Call Back 01/25/2020 Encounter Details Date Type Department Care Team (Late st Contact Info) Description 01/25/2020 [facility] Multiple Sclerosis Clinic [address] [phone] Erick Hickman MD [address] [place] [address] - [id number] [place], [place] [id number] Call Back Social History Tobacco Use Types [...] Reason for Call: Other: Pt is at [facility], pt stateed she needs OK from Dr Melo Diaz to get MRIs done. Pt is requesting a call to the hospital for OK. She is there now. Action Taken: Message routed to: [facility] ([facility]): Neuro Travel Screening: Not Applicable documented in this encounter Plan of Treatment Upcoming Encounters Date Type Department Care Team (Late st Contact Info) Description 05/24/2024 10:00 AM INSURANCE SPECIALIST Virtual Visit [facility] Neurosurgery [address] 3rd [place] [phone] Boy Rousseau MD [address] [place], [place] [id number] [address] 05/26/2024 9:30 AM INSURANCE SPECIALIST Office Visit [facility] Multiple Sclerosis [address] [phone] Erick Hickman MD [address] [place] [address] documented as of this encounter Visit Diagnoses Not on filedocumented in this encounter Care Teams Transportation Dispatch Manager Relationship Specialty Start Date End Date Jacobo Campos MD [facility] [address] [place] [address] PCP - General Internal Medicine 09/08/13 Guerita Holbrook, DIVINE Specialty Information Assistant Neurology 06/22/15 02/28/21 Erick Hickman MD [address] [place] [address] Assigned Neuroscience Provider 04/27/20 Boy Rousseau MD [address] [facility] [id number] [place] [address] Assigned Surgical Provider 04/27/20 12/26/23 documented as of this encounter
--- OUTSIDE RECORDS SUMMARY | 2024-04-07 18:26 | XMS_ITS | Encounter Summary ---
Author Organization [place] Address [address] [place] [address]. [place] [address] Care Team Providers Care Paper Tube Grader Name Role Phone Jacobo Campos MD Primary Care Provider Guerita Holbrook RN Unavailable Erick Hickman MD Unavailable [phone] Boy Rousseau MD Unavailable [phone] Encounter Details Date Type Department Care Team (Late st Contact Info) Description 08/15/2020 Telephone [facility] [address] [address] Erick Hickman MD [address] [place] [address] - [id number] [address] Social History Tobacco Use Types [...] COVID-19? No / Unsure 08/16/2020 10:51 AM LIVESTOCK FARM WORKERS documented as of this encounter Miscellaneous Notes * Telephone Encounter - Sherri Ramirez MA - 08/15/2020 2:40 PM CST Called and informed patient, no MRI or labs needed before appointment per last OV 08/2019 Sherri Ramirez MA STOCK FARM WORKERS * Telephone Encounter - Kodak Oneill - 08/15/2020 2:13 PM CST [facility] Phone Message May a detailed message [...] Center ([facility]): Neuology Travel Screening: Not Applicable STOCK FARM WORKERS documented in this encounter Plan of Treatment Upcoming Encounters Date Type Department Care Team (Late st Contact Info) Description 05/24/2024 10:00 AM LIVESTOCK FARM WORKERS Virtual Visit [facility] Neurosurgery Clinic [address] 3rd [place] [phone] Boy Rousseau MD [address] [place], [place] [address], [place] [address] 05/26/2024 9:30 AM LIVESTOCK FARM WORKERS Office Visit [facility] [address] [phone] Erick Hickman MD [address] [place] [address] - [id number] [place], [place] [address] documented as of this encounter Visit Diagnoses Not on filedocumented in this encounter Care Teams Paper Tube Grader Relationship Specialty Start Date End Date Jacobo Campos MD [facility] [address] [place] [address] PCP - General Internal Medicine 09/08/13 Guerita Holbrook, RN Specialty Cream Cheese Maker Neurology 06/22/15 02/28/21 Erick Hickman MD [address] [facility] - [id number] [address] Assigned Neuroscience Provider 04/27/20 Boy Rousseau MD [address] [facility], [place] [address]185 Assigned Surgical Provider 04/27/20 12/26/23 documented as of this encounter
--- OUTSIDE RECORDS SUMMARY | 2024-04-07 18:26 | XMS_ITS | Encounter Summary ---
Author Organization [place] Address [address] [place] [address] Care Team Providers Care Extruder Operator Name Role Phone Jacobo Campos MD Primary Care Provider Guerita Holbrook RN Unavailable Erick Hickman MD Unavailable [phone] Boy Rousseau MD Unavailable + [phone] Reason for Visit * Reason Onset Date Comments Prior Auth - Medication 06/23/2019 teriflun omide (AUBAGIO) 14 MG tablet Call Back 06/23/2019 Encounter Details Date Type Department Care Team (Late st Contact Info) Description 06/23/2019 Telephone [facility] [address] [address] Erick Hickman MD [address] [place] [address] - [id number] [place], [place] [address] Prior Auth - Medication (teriflunomide (AUBAGIO) 14 [...] 1:20 PM CST Aubagio Rx sent to [facility]. [place] WAREHOUSE SUPERVISOR * Telephone Encounter - Tamara Mccullough - 07/07/2019 1:01 PM CST Images from the original note were not included. I spoke with the patient and she can now fill with [facility]. I've already added her insurance through [facility] [place] and obtained her copay card and added both to their system. A new RX for Aubagio will need to be sent to [facility] to initiate their new patient process. PDM Copay Card: [facility] [place] insurance: Thank you, Tamara Mccullough CPh-T [facility] [address] 3rd [place] [address] [email or web address] [place] WAREHOUSE SUPERVISOR * Telephone Encounter - Charley Horowitz RN - 07/07/2019 11:48 AM CST Tamara, please see below. Patient states she changed insurance. Can you investigate what pharmacy sheshould use? [place] WAREHOUSE SUPERVISOR * Telephone Encounter - Carlos Godwin - 07/07/2019 9:50 AM RETAIL WAREHOUSE SUPERVISOR [facility] Phone Message May a detailed message be left on voicemail: yes Reason for Call: Other: Aleishaalie calling to request a call back. She states she switched insurance to BC[employer] and pharmacies to [facility]. She would like to know if she's able to get her Aubagio. ([facility] , Phone# [phone]) Please call her back to discuss. Action Taken: Message routed to: [facility] neuro [place] WAREHOUSE SUPERVISOR * Telephone Encounter - Joy Guevara - 06/24/2019 9:33 AM CST Images from the original note were not included. Prior Authorization Approval Authorization Effective Date: 06/24/2019 Authorization Expiration Date: 06/24/2020 Medication: teriflunomide (AUBAGIO) 14 MG tablet Approved Dose/Quantity: 30 Reference #: [id number] Insurance Company: [employer] [phone] Which Pharmacy is filling the prescription (Not needed for infusion/clinic administered): [facility] [place] [id number] [employer] Renewal- no interruption in therapy - previous PA was good until 07/08/2019 [place] WAREHOUSE SUPERVISOR * Telephone Encounter - Joy Guevara - 06/23/2019 3:11 PM CST PA Initiation Medication: teriflunomide (AUBAGIO) 14 MG tablet Insurance Company: [employer] [phone] Pharmacy Filling the Rx: [facility] [place] [id number] [employer] Filling Pharmacy Phone: Filling Pharmacy Fax: Start Date: 06/23/2019 Central Prior Authorization Team Filled out form and faxed it to [facility] fax# [phone] [place] WAREHOUSE SUPERVISOR * Telephone Encounter - Felicia Morin - 06/23/2019 10:20 AM CST Images from the original note were not included. [place] WAREHOUSE SUPERVISOR documented in this encounter Plan of Treatment Upcoming Encounters Date Type Department Care Team (Late st Contact Info) Description 05/24/2024 10:00 AM RETAIL WAREHOUSE SUPERVISOR Virtual Visit [facility] Neurosurgery [address] [address] Boy Rousseau MD [address] [place] [address] 05/26/2024 9:30 AM RETAIL WAREHOUSE SUPERVISOR Office Visit [facility] [address] [phone] Erick Hickman MD [address] [place] [address] documented as of this encounter Visit Diagnoses Diagnosis Multiple sclerosis (H)- Primary Multiple sclerosis documented in this encounter Care Teams Extruder Operator Relationship Specialty Start Date End Date Jacobo Campos MD [facility] [address] [place] [address] PCP - General Internal Medicine 09/08/13 Guerita Holbrook, RN Specialty C[employer]pillar Mechanic Neurology 06/22/15 02/28/21 Erick Hickman MD [address] [place] [address] Assigned Neuroscience Provider 04/27/20 Boy Rousseau MD [address] [place] [address] Assigned Surgical Provider 04/27/20 12/26/23 documented as of this encounter
--- OUTSIDE RECORDS SUMMARY | 2024-04-07 18:26 | XMS_ITS | Encounter Summary ---
Author Organization [place] Address [address] [place] [address]. [place] [address] Care Team Providers Care Venetian Blind Mechanic Name Role Phone Jacobo Campos MD Primary Care Provider Guerita Holbrook RN Unavailable Erick Hickman MD Unavailable [phone] Boy Rousseau MD Unavailable [phone] Reason for Visit * Reason Onset Date Comments Call Back 10/17/2020 Encounter Details Date Type Department Care Team (Late st Contact Info) Description 10/17/2020 Telephone [facility] Neurosurgery Clinic [address] [address] Boy Rousseau MD [address] [place] [address] [id number] [place], [place] [id number] Call Back Social History Tobacco Use Types [...] imaging report to Dr. Gamez at fax# [phone] Campos at fax# [phone]. No other questions or concerns at this time. * Telephone Encounter - Dian Gibbs RN - 10/18/2020 11:06 AM CDT Ok for MRI. Patient has Embolic Substance/Device WEB SL 4x3 and Neuroform [place] Stent 3x21 placed 11/23/19. See implant information for details. * Telephone Encounter - Olga Vargas - 10/17/2020 3:49 PM CDT [facility] Phone Message May a detailed message be left on voicemail: yes Reason for Call: Other: Patient calling looking to speak with care team of Dr. Rousseau - states that her provider in [place] is needing clarification/ confirmation if she is able to get MRI on spine and brain and neck area. States that she is having back and spine issues. Please advise and call patient back at your earliest convenience to discuss further Action Taken: Other: [facility] Travel Screening: Not Applicable documented in this encounter Plan of Treatment Upcoming Encounters Date Type Department Care Team (Late st Contact Info) Description 05/24/2024 10:00 AM SALESFORCE ADMINISTRATOR Virtual Visit [facility] Neurosurgery Clinic [address] 3rd [place] [address] Boy Rousseau MD [address] [place] [address] [id number] [place] [address] 05/26/2024 9:30 AM SALESFORCE ADMINISTRATOR Office Visit [facility] Multiple Sclerosis [address] [address] Erick Hickman MD [address] [place] [address] documented as of this encounter Visit Diagnoses Not on filedocumented in this encounter Care Teams Venetian Blind Mechanic Relationship Specialty Start Date End Date Jacobo Campos MD [facility] [address] [place] [address] PCP - General Internal Medicine 09/08/13 Guerita Holbrook, DIVINE Specialty Logistics Engineering Manager Neurology 06/22/15 02/28/21 Erick Hickman MD [address] [place], [place] [address] [address] Assigned Neuroscience Provider 04/27/20 Boy Rousseau MD [address] [place], [place] [address], [place] [address] Assigned Surgical Provider 04/27/20 12/26/23 documented as of this encounter
--- OUTSIDE RECORDS SUMMARY | 2024-04-07 18:26 | XMS_ITS | Clinical Summary ---
Author Organization [facility] Address [place], [place] [address] Care Team Providers Care Mobile Game Engineer Name Role Phone Jacobo Campos MD Primary Care Provider [phone] Allergies Active Allergy Reactions Criticality Noted Date Comments Glatiramer Acetate Other - Describe In Comment Field High 03/26/2015 Skin and fever Medications Medication Sig Dispensed Refills Start Date End Date Status multivitamin (MVI) tablet Take 1 tablet by mouth once daily. 0 02/25/2010 Active cholecalciferol (VITAMIN D-3) 2,000 unit capsule Take 1 capsule by mouth once daily. 0 07/24/2016 Active cyanocobalamin (VITAMIN B-12) 1,000 mcg tablet Take 1 tablet by mouth once daily. 0 07/24/2016 Active estradiol 0.1 mg/24 hr (ESTRADERM; VIVELLE-DOT) patch twice and w 08/11/2016 Activ e biotin 100 mg/gram powd Mix 1 Tablet [...] mouth once daily. Active durable medical equipment (DME)Indications:C ervical disc herniation,Cervica l radiculopathy,Neck pain, chronic Cervical Traction Unit for home use. Length of Use: 99 months 1 Each 12/21/2020 Active tiZANidine (ZANAFLEX) 4 mg tabletIndications: Lumbar radiculopathy TAKE 1 TABLET(4 MG) BY MOUTH EVERY 6 HOURS NEEDED FOR MUSCLE SPASM 24 Tablet 1 08/07/2023 Active gabapentin (NEURONTIN) 300 mg capsuleIndications :Lumbar radiculopathy TAKE 1 CAPSULE(300 MG) BY MOUTH THREE TIMES DAILY 270 Capsule 02/08/2024 Active teriflunomide (AUBAGIO) 14 mg tablet Take 1 tablet (14 mg) by mouth daily 90 Tablet 3 04/06/2024 Active teriflunomide (AUBAGIO) 14 mg tablet Take 1 tablet (14 mg) by mouth daily 90 Tablet 3 05/01/2023 Discontinued Active Problems Problem Noted Date Diagnosed Date Acetabular labrum tear, left, sequela 09/24/2023 Piriformis syndrome of left side 09/24/2023 Greater trochanteric bursitis of left hip 2023 Lumbar and sacral osteoarthritis 09/24/2023 Neurogenic bladder 02/18/2016 Recurrent UTI 02/18/2016 Multiple sclerosis 10/12/2010 COUGH 02/25/2000 Encounters Date Type Department Care Team Description 03/31/2024 3:00 PM CDT Office Visit [facility] [place] [facility] [address] Oneal Gamez MD [facility] (Follow up work comp back, left hip/groin and leg date of injury:06/08/23) 03/31/2024 Travel 02/05/2024 Refill [facility] [address] [facility] [address] Oneal Gamez MD Refill Request (Gabapentin) from [...] Friends and Fami ly Not on file 07/06/2021 Financial Resource Strain Answer Date R ecorded Difficulty of Paying Living Expenses Not on file 07/06/2021 Difficulty of Paying Living Expenses Not on file 07/06/2021 Sex and Gender Information Value Date Recorded Sex Assigned at Not on file Gender Identity Not on file Sexual Orientation Not on file Obstetrics History Last Filed Vital Signs Vital Sign Reading Time Taken Comments Blood Pressure 113/78 03/31/2024 3:06 PM CDT Pulse 83 03/31/2024 3:06 PM CDT Temperature 36.8 ??C (98.2 ??F) 03/31/2024 3:06 PM CD T Respiratory Rate 16 09/02/2016 9:30 AM WEB RETAILER Oxygen Saturation 98% 03/31/2024 3:06 PM CDT Inhaled Oxygen Concentration - - Weight 75.4 kg (166 lb 3.2 oz) 08/06/2023 1:51 P M WEB RETAILER Height 170 cm (5' 6.93) 08/04/2016 9:28 AM WEB RETAILER Body Mass Index 26.09 08/04/2016 9:28 AM WEB RETAILER Plan of Treatment Health Maintenance Due Date [...] (1 of 2) 2022 COVID-19 vaccine series (2023- season) 2024 Influenza for age 50-64 03/06/2024 Pneumococcal series for age 6-64 Aged Out No longer eligible b ased on patient's age to complete this topic Procedures Procedure Name Priority Date/Time Associated Diagnosis Comments MANAGER UNIVERSITY THIN PREP PAP SCREEN IMAGED Routine 05/21/2007 4:49 PM WEB RETAILER Screening Malignant Neoplasms Cervix from Last 3 Months or Most Recently Relevant to Health Maintenance Results * MANAGER UNIVERSITY THIN PREP PAP SCREEN IMAGED (05/21/2007 4:49 PM WEB RETAILER) CYTOLOGY ??CYTOPATHOLOGY REPORT ??Level 3 Communications/[facility] ?? Status: Final Report ? [id number] ?? CLINICAL INFORMATION ?LMP ? : 05/02/07 ?Previous Pap Date ? : 2004 ?Previous PAP Dx ? : Negative for intraepithelial lesion or ?malignancy. ?Previous Ridge/bx date : None ?Previous Colposcopy/Bx: None ?Hormone Usage ? : None ?Menstrual Status ?: Regular Periods ?Appearance of Cervix ??: NORMAL ?Ridge/Bx done today ?: No ?HPV Request ? [...] 05/21/07 ?? ACCESSIONED: 05/21/07 ?? SIGNED: 06/07/07 [facility] Cervical (Cervical) 05/21/2007 4:49 PM WEB RETAILER 05/21/2007 4:45 PM WEB RETAILER Janeth Barrett NP PATHOLOGY/CYTOLOGY [facility] INTERNAL ZIP [address] [address] from Last 3 Months or Most Recently Relevant to Health Maintenance Care Teams Mobile Game Engineer Relationship Specialty Start Date End Date Jacobo Campos MD [address] [place] [address] PCP - General Internal Medicine 10/25/21
--- OUTSIDE RECORDS SUMMARY | 2024-04-07 18:26 | XMS_ITS | Encounter Summary ---
Author Organization [place] Address [address] [place] [address]. [place] [address] Care Team Providers Care Personal Injury Specialist Name Role Phone Jacobo Campos MD Primary Care Provider Guerita Holbrook RN Unavailable Erick Hickman MD Unavailable [phone] Boy Rousseau MD Unavailable [phone] Reason for Visit * Reason Onset Date Comments Orders 07/12/2019 MRI head, Spine Encounter Details Date Type Department Care Team (Late st Contact Info) Description 07/12/2019 [facility] Multiple Sclerosis Clinic [address] [phone] Erick Hickman MD [address] [place] [address] - [id number] [place] [address] Orders (MRI head, Spine) Social [...] Orders faxed. Patient made aware of this. TOR * Telephone Encounter - Charley Horowitz RN - 07/12/2019 10:37 AM CST Patient is scheduled to see Dr. Hickman 08/18; per the last office note, MD would like MRI of brain and c-spine. Orders placed on behalf of . Once orders co-signed, will fax to [facility] (fax [phone]). TOR * Telephone Encounter - Carlos Godwin - 07/12/2019 10:26 AM AUDITOR [facility] Phone Message May a detailed message be left on voicemail: yes Reason for Call: Order(s): Other: Reason for requested: MRI brain, spine Date needed: as soon as possible Provider name: Marylou Please send order to [place], [place] Action Taken: Message routed to: [facility] neuro TOR documented in this encounter Plan of Treatment Upcoming Encounters Date Type Department Care Team (Late st Contact Info) Description 05/24/2024 10:00 AM AUDITOR Virtual Visit [facility] Neurosurgery Clinic [address] 3rd [place] [address] Boy Rousseau MD [address] [place], [place] [id number] [place], [place] [address] 05/26/2024 9:30 AM AUDITOR Office Visit [facility] Multiple Sclerosis Clinic [address] [address] Erick Hickman MD [address] [place] [address] - [id number] [place], [place] [address] documented as of this encounter Visit Diagnoses Diagnosis Multiple sclerosis (H)- Primary Multiple sclerosis documented in this encounter Care Teams Personal Injury Specialist Relationship Specialty Start Date End Date Jacobo Campos MD [facility] [address] [place] [address] PCP - General Internal Medicine 09/08/13 Guerita Holbrook, DIVINE Specialty Agent Based Modeler Neurology 06/22/15 02/28/21 Erick Hickman MD [address] [place] [id number], [place] [address] Assigned Neuroscience Provider 04/27/20 Boy Rousseau MD [address] [place], [place] [address], [place] [address] Assigned Surgical Provider 04/27/20 12/26/23 documented as of this encounter
--- OUTSIDE RECORDS SUMMARY | 2024-04-07 18:26 | XMS_ITS | Encounter Summary ---
Author Organization [facility] Address [address] [place] [address] Care Team Providers Care Hearing Aid Assembly Supervisor Name Role Phone Jacobo Campos MD Primary Care Provider Guerita Holbrook RN Unavailable Erick Hickman MD Unavailable [phone] Boy Rousseau MD Unavailable [phone] Encounter Details Date Type Department Care Team (Late st Contact Info) Description 08/19/2012 Office Visit-[facility] Shoaib Garduno MD XXX [place] LICENSE INACTIVE OF DECEMBER 2023 XXX Social History Tobacco Use Types Packs/Day Years Used Date Smoking Tobacco: Never Assessed Sex and Gender Information Value Date Recorded Sex Assigned at Not on file Gender Identity Not on file Sexual Orientation Not on file documented as of this encounter Progress Notes * Shoaib Garduno - 08/19/2012 1:15 PM CST Apprentice Painter Hand: Shoaib Garduno Status: Final - Signature Encounter: 2012-08-19 13:15:00.000 Type: Neurology Letter [facility] [address] [address] August 19, 2012 Jacobo Campos M.D. [address] [address] RE: Eliz Hartman : 1970 DHRUV: 08/19/2012 [...] she is going on a vacation to [place] soon. Current medications are Rebif, vitamin D, [...] Strength is normal. Sensory examination is intact. Aynyst-jh-fsvq is done well. Her gait is normal, [...] aware of this while she is in [place]. She will continue to see me at least every six months. Sincerely, Shoaib Garduno MD Department of Neurology [facility]:11 Electronically signed by:Shoaib Garduno M.D. Aug 19 2012 4:30PM INDUSTRIAL PLANT CUSTODIAN STRIAL PLANT CUSTODIAN documented in this encounter Plan of Treatment Upcoming Encounters Date Type Department Care Team (Late st Contact Info) Description 05/24/2024 10:00 AM INDUSTRIAL PLANT CUSTODIAN Virtual Visit [address] [place] [address] Boy Rousseau MD [address] [place] [address] 05/26/2024 9:30 AM INDUSTRIAL PLANT CUSTODIAN Office Visit [facility] Multiple Sclerosis [address] [phone] Erick Hickman MD [address] [place] [address] documented as of this encounter Visit Diagnoses Not on filedocumented in this encounter Care Teams Hearing Aid Assembly Supervisor Relationship Specialty Start Date End Date Jacobo Campos MD [facility] [address] [place] [address] PCP - General Internal Medicine 09/08/13 Guerita Holbrook, RN Specialty Pre Sales Network Engineer Neurology 06/22/15 02/28/21 Erick Hickman MD [address] [place] [address] Assigned Neuroscience Provider 04/27/20 Boy Rousseau MD [address] [place] [address] Assigned Surgical Provider 04/27/20 12/26/23 documented as of this encounter
== END 2024-04-07 19:09 | disposition home or self-care (01) ==
PROVIDERS: Emergency Provider Emergency Medicine; PCP Internal Medicine
DX: M25.512 Pain in left shoulder (principal); W22.8XXA Striking against or struck by other objects, initial encounter
CPT/HCPCS: 73030; 99283; 99284

== ENCOUNTER 2024-04-19 13:24 | Outpatient (CLI) | payer OTHER, BC, SELFPAY ==
--- OUTSIDE RECORDS SUMMARY | 2024-04-19 13:27 | XMS_ITS | Encounter Summary ---
Author Organization [place] Address [address] [place] [address]. [place] [address] Care Team Providers Care Salesperson Used Cars Name Role Phone Jacobo Campos MD Primary Care Provider Erick Hickman MD Unavailable Reason for Visit * Reason Comments Medication Refill Nortriptyline Encounter Details Date Type Department Care Team (Late st Contact Info) Description 01/02/2024 Refill [facility] Multiple Sclerosis Clinic [address] [address] Erick Hickman MD [address] [place] [address] - [id number] [place] [address] Medication Refill (Nortriptyline) Social History Tobacco Use [...] CDT Received refill request [facility] nortriptyline from [facility]; Patient was last seen in October 2023 and has follow up appointment in May [address] Hickman. Refilled per [facility] refill protocol. Racquel Whitt RN documented in this encounter Plan of Treatment Upcoming Encounters Date Type Department Care Team (Late st Contact Info) Description 05/24/2024 10:00 AM VOCATIONAL NURSING INSTRUCTOR Virtual Visit [facility] Neurosurgery [address] 3rd [place] [phone] Boy Rousseau MD [address] [place], [place] [address], [place] [address] 05/26/2024 9:30 AM VOCATIONAL NURSING INSTRUCTOR Office Visit [facility] Multiple Sclerosis [address] [phone] Erick Hickman MD [address] [place] [address] documented as of this encounter Visit Diagnoses Diagnosis Nonintractable headache, unspecified chronicity pattern, unspecified headache type documented in this encounter Care Teams Salesperson Used Cars Relationship Specialty Start Date End Date Jacobo Campos MD [facility] [address] [place] [address] PCP - General Internal Medicine 09/08/13 Erick Hickman MD [address] [place] [address] Assigned Neuroscience Provider 04/27/20 documented as of this encounter
--- OUTSIDE RECORDS SUMMARY | 2024-04-19 13:27 | XMS_ITS | Clinical Summary ---
Author Organization [facility] Address [address] [place] [address] Care Team Providers Care Geoint Analyst Name Role Phone Jacobo Campos MD Primary Care Provider Erick Hickman MD Unavailable [phone] Allergies Active Allergy Reactions Criticality Noted Date [...] Type Department Care Team Description 04/05/2024 Refill [facility]clerosis [facility] [address] [phone] Erick Hickman MD Medication Refill (Teriflunomide ) 02/19/2024 Documentation Only [facility] Neurology Clinic [address] [phone] Boy Rousseau MD 02/18/2024 Telephone [facility] Neurosurgery Clinic [address] [phone] Boy Rousseau MD 02/11/2024 Orders Only [facility] Neurology [address] [phone] Dian Gibbs RN MS (multiple sclerosis) (H) [...] ??C (97.8 ??F) 05/25/2020 8 :33 AM HOUSE CLEANER SUPERVISOR Respiratory Rate 16 05/25/2020 12:3 2 PM HOUSE CLEANER SUPERVISOR Oxygen Saturation 100% 10/08/2023 9:2 2 AM CDT Inhaled Oxygen Concentration - - Weight 68.9 kg (151 lb 12.8 oz) 10/08/2023 9:22 AM CDT with out shoes Height 170.2 cm (5' 7) 08/16/2020 10:5 6 AM HOUSE CLEANER SUPERVISOR Body Mass Index 23.78 08/16/2020 10:56 AM HOUSE CLEANER SUPERVISOR Plan of Treatment Upcoming Encounters Date Type Department Care Team (Late st Contact Info) Description 05/24/2024 10:00 AM HOUSE CLEANER SUPERVISOR Virtual Visit [facility] Neurosurgery Clinic [address] 3rd [place] [phone] Boy Rousseau MD [address] [place], [place] [address] [address] 05/26/2024 9:30 AM HOUSE CLEANER SUPERVISOR Office Visit [facility]clerosis [facility] [address] [phone] Erick Hickman MD [address] [place] [address] [id number] [address] Health Maintenance Due Date Last Done Comments [...] this topic Medical Devices Implanted Type Area Nurse Monitoring Device Identifier Shelf Expiration Date Model / Serial / Lot Embolic Substance/Dev ice Web Sl 4x3-11/23/2019 Implanted:Qty : 1 on 11/23/2019 by Boy Rousseau MD Embolic Substance/D evice Right: Carotid MICROVENTION 02/18/2020 W4-4-3 / / [id number] Stent Neuroform [place] 3x21- 0 Implanted:Qty : 1 on 11/23/2019 by Boy Rousseau MD Stent Right: Carotid CHAYITO 11/17/2023 [id number] / / [id number] Procedures Procedure Name Priority Date/Time Associated Diagnosis Comments BASIC METABOLIC PANEL Routine 05/23/2020 8:48 AM HOUSE CLEANER SUPERVISOR Intracranial aneurysm from Last 3 Months or Most Recently Relevant to Health Maintenance Results * Basic metabolic panel FUTURE anytime (05/23/2020 8:48 AM HOUSE CLEANER SUPERVISOR) Sodium 141 133 - 144 mmol/L 05/23/2020 1:58 PM [facility] Potassium 3.6 3.4 - 5.3 mmol/L 05/23/2020 1:58 PM [facility] Chloride 105 94 - 109 mmol/L 05/23/2020 1:58 PM [facility] Carbon Dioxide 27 20 - 32 mmol/L 05/23/2020 2:26 PM [facility] Anion Gap 9 3 - 14 mmol/L 05/23/2020 2:26 PM [facility] Glucose 87 70 - 99 mg/dL 05/23/2020 2:26 PM [facility] Urea Nitrogen 14 7 - 30 mg/dL 05/23/2020 2:26 PM [facility] Creatinine 0.73 0.52 - 1.04 mg/dL 05/23/2020 2:26 PM [facility] GFR Estimate >90 >60 mL/min/{1 .73_m2} 05/23/2020 2:26 PM [facility] Comment: Non GFR Calc Starting 06/22/2018, serum creatinine based estimated GFR (eGFR) will be calculated using the Chronic Kidney Disease Epidemiology Collaboration (CKD-EPI) equation. GFR Estimate If Black >90 >60 mL/min/{1 .73_m2} 05/23/2020 2:26 PM [facility] Comment: GFR Calc Starting 06/22/2018, serum creatinine based estimated GFR (eGFR) will be calculated using the Chronic Kidney Disease Epidemiology Collaboration (CKD-EPI) equation. Calcium 9.5 8.5 - 10.1 mg/dL 05/23/2020 2:26 PM [facility] Blood specimen (specimen) 05/23/2020 8:48 AM HOUSE CLEANER SUPERVISOR 05/23/2020 8:53 AM HOUSE CLEANER SUPERVISOR Lin Daily MD LAB - BLOOD ORDERABL ES [facility] [address] [address], [facility] [phone] [facility] [address] [place] [address] from Last 3 Months or Most Recently Relevant to Health Maintenance Care Teams Geoint Analyst Relationship Specialty Start Date End Date Jacobo Campos MD [facility] [address] [place] [address] PCP - General Internal Medicine 09/08/13 Erick Hickman MD [address] [place] [address] [address] Assigned Neuroscience Provider 04/27/20
--- OUTSIDE RECORDS SUMMARY | 2024-04-19 13:27 | XMS_ITS | Encounter Summary ---
Author Organization [facility] Address [address] [place] [address]. [place] [address] Care Team Providers Care Vegetable Scullion Name Role Phone Jacobo Campos MD Primary Care Provider Erick Hickman MD Unavailable [phone] Reason for Referral * Diagnostic Imaging MRI (Routine) - Pending Review Specialty Diagnoses / Procedures Referred By Monica longoria Referred To Contact Radiology. Diagnoses Nonruptured cerebral aneurysm Procedures MRA Brain ([place]) w/o Contrast Boy Rousseau MD [address] [place], [place] [address], [place] [address] Referral ID Status Reason Start Date Expiration Date V isits Requested Visits Authorized [id number] Pending Review 02/11/2024 02/10/2025 1 1 Encounter Details Date Type Department Care Team (Late st Contact Info) Description 02/11/[address] [facility] Neurology Clinic [address] 3rd [place] [address] Dian Gibbs RN MS (multiple [...] st Contact Info) Description 05/24/2024 10:00 AM SLIP COVER MAKER Virtual Visit [facility] Neurosurgery [address] 3rd [place] [phone] Boy Rousseau MD [address] [place], [place] [address], [place] [address] 05/26/2024 9:30 AM SLIP COVER MAKER Office Visit [facility] Multiple Sclerosis [address] [phone] Erick Hickman MD [address] [place], [place] [address], [place] [address] Scheduled Orders Name Type Priority Associated Diagnoses Orde r Schedule MRA Brain ([place]) w/o Contrast Imaging Routine Nonruptured cerebral aneurysm Expected: 05/13/2024 (Approximate), Expires: 02/10/2025 documented as of this encounter Visit Diagnoses Diagnosis MS (multiple sclerosis) (H)- Primary Multiple sclerosis Nonruptured cerebral aneurysm Cerebral aneurysm, nonruptured documented in this encounter Care Teams Vegetable Scullion Relationship Specialty Start Date End Date Jacobo Campos MD [facility] [address] [place] [address] PCP - General Internal Medicine 09/08/13 Erick Hickman MD [address] [place] [id number] Assigned Neuroscience Provider 04/27/20 documented as of this encounter
--- OUTSIDE RECORDS SUMMARY | 2024-04-19 13:27 | XMS_ITS | Referral Summary ---
Author Organization [facility] Address [address] [place] [address] Care Team Providers Care Crane Service Technician Name Role Phone Jacobo Campos MD Primary Care Provider Erick Hickman MD Unavailable [phone] Encounters Date Type Department Care Team Description 04/05/2024 Refill [facility] Multiple Sclerosis Clinic [address] [phone] Erick Hickman MD Medication Refill (Teriflunomide ) 02/19/2024 Documentation Only [facility] Neurology Clinic [address] [phone] Boy Rousseau MD 02/18/2024 Telephone [facility] Neurosurgery Clinic [address] [phone] Boy Rousseau MD 02/11/2024 Orders Only [facility] Neurology Clinic [address] [phone] Dian Gibbs RN MS (multiple sclerosis) (H) [...] ??C (97.8 ??F) 05/25/2020 8 :33 AM SENIOR MAJOR GIFTS OFFICER Respiratory Rate 16 05/25/2020 12:3 2 PM SENIOR MAJOR GIFTS OFFICER Oxygen Saturation 100% 10/08/2023 9:2 2 AM CDT Inhaled Oxygen Concentration - - Weight 68.9 kg (151 lb 12.8 oz) 10/08/2023 9:22 AM CDT with out shoes Height 170.2 cm (5' 7) 08/16/2020 10:5 6 AM SENIOR MAJOR GIFTS OFFICER Body Mass Index 23.78 08/16/2020 10:56 AM SENIOR MAJOR GIFTS OFFICER Plan of Treatment Upcoming Encounters Date Type Department Care Team (Late st Contact Info) Description 05/24/2024 10:00 AM SENIOR MAJOR GIFTS OFFICER Virtual Visit [facility] Neurosurgery Clinic [address] 3rd [place] [phone] Boy Rousseau MD [address] [place], [place] [address], [place] [address] 05/26/2024 9:30 AM SENIOR MAJOR GIFTS OFFICER Office Visit [facility] Multiple Sclerosis Clinic [address] [phone] Erick Hickman MD [address] [place] [address] - [id number], [place] [id number] Medical Devices Implanted Type Area Vp Research Device Identifier Shelf Expiration Date Model / Serial / Lot Embolic Substance/Dev ice Web Sl 4x3-11/23/2019 Implanted:Qty : 1 on 11/23/2019 by Boy Rousseau MD Embolic Substance/D evice Right: Carotid MICROVENTION 02/18/2020 W4-4-3 / / [id number] Stent Neuroform [place] 3x21- 0 Implanted:Qty : 1 on 11/23/2019 by Boy Rousseau MD Stent Right: Carotid CHAYITO 11/17/2023 [id number] / / [id number] Procedures Procedure Name Priority Date/Time Associated Diagnosis Comments BASIC METABOLIC PANEL Routine 05/23/2020 8:48 AM SENIOR MAJOR GIFTS OFFICER Intracranial aneurysm from Last 3 Months or Most Recently Relevant to Health Maintenance Results * Basic metabolic panel FUTURE anytime (05/23/2020 8:48 AM SENIOR MAJOR GIFTS OFFICER) Sodium 141 133 - 144 mmol/L 05/23/2020 1:58 PM [facility] Potassium 3.6 3.4 - 5.3 mmol/L 05/23/2020 1:58 PM [facility] Chloride 105 94 - 109 mmol/L 05/23/2020 1:58 PM [facility] Carbon Dioxide 27 20 - 32 mmol/L 05/23/2020 2:26 PM [facility] Anion Gap 9 3 - 14 mmol/L 05/23/2020 2:26 PM [facility] Glucose 87 70 - 99 mg/dL 05/23/2020 2:26 PM [facility] Urea Nitrogen 14 7 - 30 mg/dL 05/23/2020 2:26 PM [facility] Creatinine 0.73 0.52 - 1.04 mg/dL 05/23/2020 2:26 PM [facility] GFR Estimate >90 >60 mL/min/{1 .73_m2} 05/23/2020 2:26 PM [facility] Comment: Non GFR Calc Starting 06/22/2018, serum creatinine based estimated GFR (eGFR) will be calculated using the Chronic Kidney Disease Epidemiology Collaboration (CKD-EPI) equation. GFR Estimate If Black >90 >60 mL/min/{1 .73_m2} 05/23/2020 2:26 PM [facility] Comment: GFR Calc Starting 06/22/2018, serum creatinine based estimated GFR (eGFR) will be calculated using the Chronic Kidney Disease Epidemiology Collaboration (CKD-EPI) equation. Calcium 9.5 8.5 - 10.1 mg/dL 05/23/2020 2:26 PM SENIOR MAJOR GIFTS OFFICER [facility] Blood specimen (specimen) 05/23/2020 8:48 AM SENIOR MAJOR GIFTS OFFICER 05/23/2020 8:53 AM SENIOR MAJOR GIFTS OFFICER Lin Daily MD LAB - BLOOD ORDERABL ES [facility] [address] [place] [address], [facility] [phone] [facility] [address] [place] [address] from Last 3 Months or Most Recently Relevant to Health Maintenance Care Teams Crane Service Technician Relationship Specialty Start Date End Date Jacobo Campos MD [facility] [address] [place] [address] PCP - General Internal Medicine 09/08/13 Erick Hickman MD [address] [place], [place] [address], [place] [address] Assigned Neuroscience Provider 04/27/20
--- OUTSIDE RECORDS SUMMARY | 2024-04-19 13:27 | XMS_ITS | Encounter Summary ---
Author Organization [facility] Address [address] [place] [address]. [place] [address] Care Team Providers Care Supervisor Cell Maintenance Name Role Phone Jacobo Campos MD Primary Care Provider Erick Hickman MD Unavailable Encounter Details Date Type Department Care Team (Late st Contact Info) Description 02/18/2024 Telephone [facility] Neurosurgery Clinic [address] 3rd [place] [phone] Boy Rousseau MD [address] [place], [place] [id number] [address] Social History Tobacco Use Types [...] and scheduled appointment w/ Dr. Rousseau via [facility] Gourmant. Patient will have theMRA done at [facility]. Sent message to Alecia Magallon to fax the order. -KB documented in this encounter Plan of Treatment Upcoming Encounters Date Type Department Care Team (Late st Contact Info) Description 05/24/2024 10:00 AM INSIDE SALES SUPERVISOR Virtual Visit [facility] Neurosurgery [address] 3rd [place] [phone] Boy Rousseau MD [address] [place], [place] [address] [address] 05/26/2024 9:30 AM INSIDE SALES SUPERVISOR Office Visit [facility] Multiple Sclerosis [address] [phone] Erick Hickman MD [address] [place] [address] documented as of this encounter Visit Diagnoses Not on filedocumented in this encounter Care Teams Supervisor Cell Maintenance Relationship Specialty Start Date End Date Jacobo Campos MD [facility] [address] [place] [address] PCP - General Internal Medicine 09/08/13 Erick Hickman MD [address] [place] [address] Assigned Neuroscience Provider 04/27/20 documented as of this encounter
--- OUTSIDE RECORDS SUMMARY | 2024-04-19 13:27 | XMS_ITS | Encounter Summary ---
Author Organization [facility] Address [address] [place] [address]. [place] [address] Care Team Providers Care Brick Layer Name Role Phone Jacobo Campos MD Primary Care Provider Erick Hickman MD Unavailable Reason for Visit * Reason Comments Medication Refill Teriflunomide Encounter Details Date Type Department Care Team (Late st Contact Info) Description 04/05/2024 Refill [facility] Multiple Sclerosis Clinic [address] [phone] Erick Hickman MD [address] [place] [address] - [id number] [place] [address] Medication Refill (Teriflunomide ) Social History Tobacco [...] CDT Received refill request for teriflunomide from [facility]; Patient was last seen in October 2023 and has follow up appointment in May [address] Hickman. Refilled per [place] refill protocol. Racquel Whitt, RN documented in this encounter Plan of Treatment Upcoming Encounters Date Type Department Care Team (Late st Contact Info) Description 05/24/2024 10:00 AM MONOGRAM AND LETTER PASTER Virtual Visit [facility] Neurosurgery [address] 3rd [place] [phone] Boy Rousseau MD [address] [place], [place] [address], [place] [address] 05/26/2024 9:30 AM MONOGRAM AND LETTER PASTER Office Visit [facility] Multiple Sclerosis [address] [phone] Erick Hickman MD [address] [place] [address] documented as of this encounter Visit Diagnoses Diagnosis Multiple sclerosis (H) Multiple sclerosis documented in this encounter Care Teams Brick Layer Relationship Specialty Start Date End Date Jacobo Campos MD [facility] [address] [place] [address] PCP - General Internal Medicine 09/08/13 Erick Hickman MD [address] [place] [address] Assigned Neuroscience Provider 04/27/20 documented as of this encounter
--- OUTSIDE RECORDS SUMMARY | 2024-04-19 13:27 | XMS_ITS | Encounter Summary ---
Author Organization [facility] Address [address] [place] [address]. [place] [address] Care Team Providers Care Medicaid Plan Compliance Director Name Role Phone Jacobo Campos MD Primary Care Provider Erick Hickman MD Unavailable [phone] Encounter Details Date Type Department Care Team (Late Contact Info) Description 02/19/2024 Documentation Only [facility] Neurology Clinic [address] [phone] Boy Rousseau MD [address] [place] [address] [id number] [place] [address] Social History Tobacco Use Types [...] (Late Contact Info) Description 05/24/2024 10:00 AM PAPERBACK MACHINE OPERATOR Virtual Visit [facility] Neurosurgery Clinic [address] [phone] Boy Rousseau MD [address] [place] [address] [id number] [place] [address] 05/26/2024 9:30 AM PAPERBACK MACHINE OPERATOR Office Visit [facility] Multiple Sclerosis [address] [phone] Erick Hickman MD [address] [place] [address] documented as of this encounter Visit Diagnoses Not on filedocumented in this encounter Care Teams Medicaid Plan Compliance Director Relationship Specialty Start Date End Date Jacobo Campos MD [facility] [address] [place] [address] PCP - General Internal Medicine 09/08/13 Erick Hickman MD [address] [place] [address] Assigned Neuroscience Provider 04/27/20 documented as of this encounter
--- OUTSIDE RECORDS SUMMARY | 2024-04-19 13:28 | XMS_ITS | Encounter Summary ---
Author Organization [facility] Address [address] [place] [address]. [place] [address] Care Team Providers Care Information Systems Architect Name Role Phone Jacobo Campos MD Primary Care Provider Erick Hickman MD Unavailable [phone] Boy Rousseau MD Unavailable Reason for Visit * Reason Onset Date Comments Call Back 04/22/2023 Aubagio appeal Encounter Details Date Type Department Care Team (Late st Contact Info) Description 04/22/2023 Telephone [facility] Multiple Sclerosis Clinic [address] [phone] Erick Hickman MD [address] [place] [address] - [id number] [place] [address] Call Back (Aubagio appeal ) [...] is requesting to resubmit the appeal to [facility]. Eliz is requesting a call to Cameo at to explain the reason she is needing to take teriflunomide (AUBAGIO) 14 MG tablet. Please call Eliz to discuss at your earliest convenience. Action Taken: Message routed to: [facility]): MS Travel Screening: Not Applicable * Telephone Encounter - Suri Carr - 04/22/2023 12:45 PM CDT [facility] Phone Message May a detailed message be left on voicemail: yes Reason for Call: Other: Pt is requesting a call back in regards to the appeal with [facility] for her Aubagio medication. Pt states BS hasn't received the appeal. Please call pt back with update at # [phone] Action Taken: Message routed to: [facility] Neurology Travel Screening: Not Applicable documented in this encounter Plan of Treatment Upcoming Encounters Date Type Department Care Team (Late st Contact Info) Description 05/24/2024 10:00 AM RUBBER MOLD MAKER Virtual Visit [facility] Neurosurgery Clinic [address] 3rd [place] [address] Boy Rousseau MD [address] [place] [address] [id number] [place], [place] [address] 05/26/2024 9:30 AM RUBBER MOLD MAKER Office Visit [facility] Multiple Sclerosis Clinic [address] [phone] Erick Hickman MD [address] [place], [place] [address], [place] [address] documented as of this encounter Visit Diagnoses Not on filedocumented in this encounter Care Teams Information Systems Architect Relationship Specialty Start Date End Date Jacobo Campos MD [facility] [address] [place] [address] PCP - General Internal Medicine 09/08/13 Erick Hickman MD [address] [place] [address] Assigned Neuroscience Provider 04/27/20 Boy Rousseau MD [address] [place], [place] [address] [address] Assigned Surgical Provider 04/27/20 12/26/23 documented as of this encounter
--- OUTSIDE RECORDS SUMMARY | 2024-04-19 13:28 | XMS_ITS | Encounter Summary ---
Author Organization [facility] Address [address] [place] [address] Care Team Providers Care Certified Pharmacist Assistant Name Role Phone Jacobo Campos MD Primary Care Provider Erick Hickman MD Unavailable [phone] Boy Rousseau MD Unavailable [phone] Reason for Referral * Diagnostic Imaging MRI (Routine) - Pending Review Specialty Diagnoses / Procedures Referred By Monica longoria Referred To Contact Radiology. Diagnoses Nonruptured cerebral aneurysm Procedures MRA Brain ([place] of Em) wo Contrast Erick Hickman MD [address] [place] [address] Referral ID Status Reason Start Date Expiration Date V isits Requested Visits Authorized [id number] Pending Review 11/05/2023 11/04/2024 1 1 Reason for Visit * Reason Onset Date Comments MRA Order 10/14/2023 [facility] christiana arellano to request correction on MRA order Encounter Details Date Type Department Care Team ([facility] st Contact Info) Description 10/14/2023 Telephone [facility] Neurology Clinic [address] 3rd [place] [address] Erick Hickman MD [address] [place] [place] [address] MRA Order ([facility] called to request correction on MRA order [...] RN - 11/05/2023 12:51 PM CDT Called [facility]. They confirmed that MRI brain and cervical spine were completed on 11/01.Both reports received. Requested images be pushed to [facility]. MRA was completed yesterday 11/03. Report not yet available, but will be faxed to us once finalized, and images pushed. Racquel Whitt RN * Telephone Encounter - Racquel Whitt RN - 10/14/2023 3:26 PM CDT Spoke with Denise at [facility]. Per their radiologist, only non- contrast MRA needed. Requesting new order for MRI w/o contrast. Routing request to Dr Hickman. Racquel Whitt RN * Telephone Encounter - Mellisa Gomez - 10/14/2023 2:15 PM CDT [facility] Phone Message May a detailed message be left on voicemail: yes Reason for Call: Denise from [facility] Imaging department called to request a correction on MRA order from , per Denise, protocol orders need only to say without contrast please re fax MRA order to: P# [phone] Action Taken: Message routed to: [facility] neurology Travel Screening: Not Applicable documented in this encounter Plan of Treatment Upcoming Encounters Date Type Department Care Team (Late st Contact Info) Description 05/24/2024 10:00 AM SHANK CARRIER Virtual Visit [facility] Neurosurgery [address] 3rd [place] [phone] Boy Rousseau MD [address] [place], [place] [address] [address] 05/26/2024 9:30 AM SHANK CARRIER Office Visit [facility] Multiple Sclerosis [address] [phone] Erick Hickman MD [address] [place], [place] [address] [address] Scheduled Orders Name Type Priority Associated Diagnoses Orde r Schedule MRA Brain ([place] [facility] Em) wo Contrast Imaging Routine Nonruptured cerebral aneurysm Expected: 11/05/2023 (Approximate), Expires: 11/04/2024 documented as of this encounter Visit Diagnoses Diagnosis Nonruptured cerebral aneurysm- Primary Cerebral aneurysm, nonruptured documented in this encounter Care Teams Certified Pharmacist Assistant Relationship Specialty Start Date End Date Jacobo Campos MD [facility] [address] [place] [address] PCP - General Internal Medicine 09/08/13 Erick Hickman MD [address] [facility] [address] [id number] [place] [address] Assigned Neuroscience Provider 04/27/20 Boy Rousseau MD [address] [facility] [id number] [place], [place] [address] Assigned Surgical Provider 04/27/20 12/26/23 documented as of this encounter
--- OUTSIDE RECORDS SUMMARY | 2024-04-19 13:28 | XMS_ITS | Encounter Summary ---
Author Organization [place] Address [address] [place] [address]. [place] [address] Care Team Providers Care Trimming Cutter Name Role Phone Jacobo Campos MD Primary Care Provider Guerita Holbrook RN Unavailable Erick Hickman MD Unavailable [phone] Boy Rousseau MD Unavailable [phone] Reason for Visit * Reason Onset Date Comments Call Back 10/17/2020 Encounter Details Date Type Department Care Team (Late st Contact Info) Description 10/17/2020 Telephone [facility] Neurosurgery Clinic [address] [address] Boy Rousseau MD [address] [place] [address] [id number] [place], [place] [id number] Call Back Social History Tobacco Use Types [...] imaging report to Dr. Gamez at fax# [phone] Campos at fax# [phone]. No other questions or concerns at this time. * Telephone Encounter - Dian Gibbs RN - 10/18/2020 11:06 AM CDT Ok for MRI. Patient has Embolic Substance/Device WEB SL 4x3 and Neuroform Jeremiah Stent 3x21 placed 11/23/19. See implant information for details. * Telephone Encounter - Olga Vargas - 10/17/2020 3:49 PM CDT [facility] Phone Message May a detailed message be left on voicemail: yes Reason for Call: Other: Patient calling looking to speak with care team of Dr. Rousseau - states that her provider in [place] is needing clarification/ confirmation if she is able to get MRI on spine and brain and neck area. States that she is having back and spine issues. Please advise and call patient back at your earliest convenience to discuss further Action Taken: Other: [facility] Travel Screening: Not Applicable documented in this encounter Plan of Treatment Upcoming Encounters Date Type Department Care Team (Late st Contact Info) Description 05/24/2024 10:00 AM COILED COIL INSPECTOR Virtual Visit [facility] [address] 3rd [place] [address] Boy Rousseau MD [address] [place] [address] [id number] [place] [address] 05/26/2024 9:30 AM COILED COIL INSPECTOR Office Visit [facility] Multiple Sclerosis [address] [address] Erick Hickman MD [address] [place] [address] documented as of this encounter Visit Diagnoses Not on filedocumented in this encounter Care Teams Trimming Cutter Relationship Specialty Start Date End Date Jacobo Campos MD [facility] [address] [place] [address] PCP - General Internal Medicine 09/08/13 Guerita Holbrook, DIVINE Specialty Ticker Wirer Neurology 06/22/15 02/28/21 Erick Hickman MD [address] [place], [place] [address], [place] [address] Assigned Neuroscience Provider 04/27/20 Boy Rousseau MD [address] [place], [place] [id number], [place] [address] Assigned Surgical Provider 04/27/20 12/26/23 documented as of this encounter
--- OUTSIDE RECORDS SUMMARY | 2024-04-19 13:28 | XMS_ITS | Encounter Summary ---
Author Organization [place] Address [address] [place] [address]. [place] [address] Care Team Providers Care Director Of Sales Marketing Name Role Phone Jacobo Campos MD Primary Care Provider Guerita Holbrook RN Unavailable Erick Hickman MD Unavailable [phone] Boy Rousseau MD Unavailable [phone] Encounter Details Date Type Department Care Team (Late st Contact Info) Description 08/15/[address] [facility] Multiple Sclerosis Clinic [address] [address] Erick Hickman MD [address] [place] [address] - [id number] [place] [address] Social History Tobacco Use Types [...] COVID-19? No / Unsure 08/16/2020 10:51 AM STEWARD/STEWARDESS DECK documented as of this encounter Miscellaneous Notes * Telephone Encounter - Sherri Raimrez MA - 08/15/2020 2:40 PM CST Called and informed patient, no MRI or labs needed before appointment per last OV 08/2019 Sherri Ramirez MA ARD/STEWARDESS DECK * Telephone Encounter - Kodak Oneill - 08/15/2020 2:13 PM CST [facility] Phone Message May a detailed message [...] Center ([facility]): Neuology Travel Screening: Not Applicable ARD/STEWARDESS DECK documented in this encounter Plan of Treatment Upcoming Encounters Date Type Department Care Team (Late st Contact Info) Description 05/24/2024 10:00 AM STEWARD/STEWARDESS DECK Virtual Visit [facility] Neurosurgery Clinic [address] 3rd [place] [phone] Boy Rousseau MD [address] [place], [place] [id number], [place] [address] 05/26/2024 9:30 AM STEWARD/STEWARDESS DECK Office Visit [facility] Multiple Sclerosis Clinic [address] [phone] Erick Hickman MD [address] [place] [address] - [id number] [place], [place] [address] documented as of this encounter Visit Diagnoses Not on filedocumented in this encounter Care Teams Director Of Sales Marketing Relationship Specialty Start Date End Date Jacobo Campos MD [facility] [address] [place] [address] PCP - General Internal Medicine 09/08/13 Guerita Holbrook, RN Specialty Central Office Worker Neurology 06/22/15 02/28/21 Erick Hickman MD [address] [facility] - [id number] [address] Assigned Neuroscience Provider 04/27/20 Boy Rousseau MD [address]09 [id number], [place] [address] Assigned Surgical Provider 04/27/20 12/26/23 documented as of this encounter
--- OUTSIDE RECORDS SUMMARY | 2024-04-19 13:28 | XMS_ITS | Clinical Summary ---
Author Organization [facility] Address [place], [place] [address] Care Team Providers Care Case Monitor Name Role Phone Jacobo Campos MD Primary [...] Description 03/31/2024 3:00 PM CDT Office Visit [facility] [place] [address] Oneal Gamez MD [facility] Med (Follow up work comp back, left hip/groin and leg date of injury:06/08/23) 03/31/2024 Travel 02/05/2024 Refill [facility] [address] [place] [address] Oneal Gamez MD Refill Request (Gabapentin) from [...] T Respiratory Rate 16 09/02/2016 9:30 AM WARP CHANGER Oxygen Saturation 98% 03/31/2024 3:06 PM CDT Inhaled Oxygen Concentration - - Weight 75.4 kg (166 lb 3.2 oz) 08/06/2023 1:51 P M WARP CHANGER Height 170 cm (5' 6.93) 08/04/2016 9:28 AM WARP CHANGER Body Mass Index 26.09 08/04/2016 9:28 AM WARP CHANGER Plan of Treatment Health Maintenance Due Date [...] Procedure Name Priority Date/Time Associated Diagnosis Comments ELECTRIC FREIGHT CAR OPERATOR THIN PREP PAP SCREEN IMAGED Routine 05/21/2007 4:49 PM WARP CHANGER Screening Malignant Neoplasms Cervix from Last 3 Months or Most Recently Relevant to Health Maintenance Results * ELECTRIC FREIGHT CAR OPERATOR THIN PREP PAP SCREEN IMAGED (05/21/2007 4:49 PM WARP CHANGER) CYTOLOGY ??CYTOPATHOLOGY REPORT ??[facility] ?? Status: Final Report ? [id number] ?? CLINICAL INFORMATION ?LMP ? : 05/02/07 ?Previous Pap Date ? : 2004 ?Previous PAP Dx ? : Negative for intraepithelial lesion or ?malignancy. ?Previous [place]/bx date : None ?Previous Colposcopy/Bx: None ?Hormone Usage ? : None ?Menstrual Status ?: Regular Periods ?Appearance of Cervix ??: NORMAL ?[place]/Bx done today ?: No ?HPV Request ? [...] [facility] Cervical (Cervical) 05/21/2007 4:49 PM WARP CHANGER 05/21/2007 4:45 PM WARP CHANGER Janeth Barrett NP PATHOLOGY/CYTOLOGY [facility] INTERNAL ZIP [address] [address] from Last 3 Months or Most Recently Relevant to Health Maintenance Care Teams Case Monitor Relationship Specialty Start Date End Date Jacobo Campos MD [address] [place] [address] PCP - General Internal Medicine 10/25/21
--- OUTSIDE RECORDS SUMMARY | 2024-04-19 13:28 | XMS_ITS | Encounter Summary ---
Author Organization [place] Address [address] [place] [address]. [place] [address] Care Team Providers Care Clinical Cytogeneticist Scientist Name Role Phone Jacobo Campos MD Primary Care Provider Guerita Holbrook RN Unavailable Erick Hickman MD Unavailable [phone] Boy Rousseau MD Unavailable [phone] Reason for Visit * Reason Onset Date Comments Call Back 01/25/2020 Encounter Details Date Type Department Care Team (Late st Contact Info) Description 01/25/2020 [facility] Multiple Sclerosis Clinic [address] [phone] Erick Hickman MD [address] [place] [address] - [id number] [place], [place] [id number] Call Back Social History Tobacco Use Types [...] Reason for Call: Other: Pt is at [facility], pt stateed she needs OK from Dr Melo Diaz to get MRIs done. Pt is requesting a call to the hospital for OK. She is there now. Action Taken: Message routed to: [facility] ([facility]): Neuro Travel Screening: Not Applicable documented in this encounter Plan of Treatment Upcoming Encounters Date Type Department Care Team (Late st Contact Info) Description 05/24/2024 10:00 AM GAS LINE INSTALLER SUPERVISOR Virtual Visit [facility] Neurosurgery [address] 3rd [place] [phone] Boy Rousseau MD [address] [place], [place] [address], [place] [address] 05/26/2024 9:30 AM GAS LINE INSTALLER SUPERVISOR Office Visit [facility] Multiple Sclerosis [address] [phone] Erick Hickman MD [address] [place] [address] documented as of this encounter Visit Diagnoses Not on filedocumented in this encounter Care Teams Clinical Cytogeneticist Scientist Relationship Specialty Start Date End Date Jacobo Campos MD [facility] [address] [place] [address] PCP - General Internal Medicine 09/08/13 Guerita Holbrook, DIVINE Specialty Licensed Therapist Neurology 06/22/15 02/28/21 Erick Hickman MD [address] [place] [address] Assigned Neuroscience Provider 04/27/20 Boy Rousseau MD 909 [facility] [id number] [place] [address] Assigned Surgical Provider 04/27/20 12/26/23 documented as of this encounter
--- OUTSIDE RECORDS SUMMARY | 2024-04-19 13:28 | XMS_ITS | Encounter Summary ---
Author Organization [place] Address [address] [place] [address]. [place] [address] Care Team Providers Care Support Merchandiser Name Role Phone Jacobo Campos MD Primary Care Provider Erick Hickman MD Unavailable [phone] Boy Rousseau MD Unavailable Reason for Visit * Reason Onset Date Comments Medication Question 04/10/2023 MS oral medi cation Encounter Details Date Type Department Care Team (Late st Contact Info) Description 04/10/2023 Telephone [facility] Multiple Sclerosis Clinic [address] [address] Erick Hickman MD [address] [place] [address] - [id number] [place] [address] Medication Question (MS oral medication [...] Violet Cai - 04/10/2023 9:39 AM CDT [facility] Call Center Phone Message May [...] discuss. Please call patient and advise at [phone]. Action Taken: Message routed to: [facility] ([facility] MS Neurology Travel Screening: Not Applicable documented in this encounter Plan of Treatment Upcoming Encounters Date Type Department Care Team (Late st Contact Info) Description 05/24/2024 10:00 AM MANAGER CONSTRUCTION Virtual Visit [facility] Neurosurgery Clinic [address] 3rd [place] [phone] Boy Rousseau MD [address] [place], [place] [address] [address] 05/26/2024 9:30 AM MANAGER CONSTRUCTION Office Visit [facility] Multiple Sclerosis [address] [phone] Erick Hickman MD [address] [place], [place] [address] [address] documented as of this encounter Visit Diagnoses Not on filedocumented in this encounter Care Teams Support Merchandiser Relationship Specialty Start Date End Date Jacobo Campos MD [facility] [address] [place] [address] PCP - General Internal Medicine 09/08/13 Erick Hickman MD 909 [facility] - [id number] [place] [address] Assigned Neuroscience Provider 04/27/20 Boy Rousseau MD 909 [facility] [id number] [place] [address] Assigned Surgical Provider 04/27/20 12/26/23 documented as of this encounter
--- OUTSIDE RECORDS SUMMARY | 2024-04-19 13:28 | XMS_ITS | Encounter Summary ---
Author Organization [place] Address [address] [place] [address]. [place] [address] Care Team Providers Care Foundry Engineer Name Role Phone Jacobo Campos MD Primary Care Provider Guerita Holbrook RN Unavailable Erick Hickman MD Unavailable [phone] Boy Rousseau MD Unavailable [phone] Reason for Visit * Reason Onset Date Comments Orders 07/12/2019 MRI head, Spine Encounter Details Date Type Department Care Team (Late st Contact Info) Description 07/12/2019 [facility] Multiple Sclerosis Clinic [address] [address] Erick Hickman MD [address] [place] [address] - [id number] [place] [address] Orders (MRI head, Spine) Social [...] Orders faxed. Patient made aware of this. R VEHICLE TECHNICIAN * Telephone Encounter - Charley Horowitz RN - 07/12/2019 10:37 AM CST Patient is scheduled to see Dr. Hickman 08/18; per the last office note, MD would like MRI of brain and c-spine. Orders placed on behalf of . Once orders co-signed, will fax to [facility] (fax [phone]). R VEHICLE TECHNICIAN * Telephone Encounter - Carlos Godwin - 07/12/2019 10:26 AM MOTOR VEHICLE TECHNICIAN [facility] Phone Message May a detailed message be left on voicemail: yes Reason for Call: Order(s): Other: Reason for requested: MRI brain, spine Date needed: as soon as possible Provider name: Marylou Please send order to [place], [place] Action Taken: Message routed to: [facility] neuro R VEHICLE TECHNICIAN documented in this encounter Plan of Treatment Upcoming Encounters Date Type Department Care Team (Late st Contact Info) Description 05/24/2024 10:00 AM MOTOR VEHICLE TECHNICIAN Virtual Visit [facility] Neurosurgery Clinic [address] 3rd [place] [address] Boy Rousseau MD [address] [place], [place] [id number] [place], [place] [address] 05/26/2024 9:30 AM MOTOR VEHICLE TECHNICIAN Office Visit [facility] Multiple Sclerosis Clinic [address] [address] Erick Hickman MD [address] [place] [address] - [id number] [place], [place] [address] documented as of this encounter Visit Diagnoses Diagnosis Multiple sclerosis (H)- Primary Multiple sclerosis documented in this encounter Care Teams Foundry Engineer Relationship Specialty Start Date End Date Jacobo Campos MD [facility] [address] [place] [address] PCP - General Internal Medicine 09/08/13 Guerita Holbrook, DIVINE Specialty Formula Bottler Neurology 06/22/15 02/28/21 Erick Hickman MD [address] [place], [place] [address] [address] Assigned Neuroscience Provider 04/27/20 Boy Rousseau MD [address] [place], [place] [address] [address] Assigned Surgical Provider 04/27/20 12/26/23 documented as of this encounter
--- OUTSIDE RECORDS SUMMARY | 2024-04-19 13:28 | XMS_ITS | Encounter Summary ---
Author Organization [place] Address [address] [place] [address] Care Team Providers Care Boat Joiner Helper Name Role Phone Jacobo Campos MD Primary Care Provider Erick Hickman MD Unavailable [phone] Boy Rousseau MD Unavailable [phone] Encounter Details Date Type Department Care Team (Late Contact Info) Description 04/30/2023 MyC Medical Advice [facility] [address] [place] [address] 1st [place] [address] Tamara Mccullough Social History Tobacco Use [...] (Late Contact Info) Description 05/24/2024 10:00 AM PLANNING AND ANALYSIS MANAGER Virtual Visit [facility] Neurosurgery Clinic [address] 3rd [place] [address] Boy Rousseau MD [address] [place] [address] [id number] [place], [place] [address] 05/26/2024 9:30 AM PLANNING AND ANALYSIS MANAGER Office Visit [facility] Multiple Sclerosis Clinic [address] [address] Erick Hickman MD [address] [place] [address] documented as of this encounter Visit Diagnoses Not on filedocumented in this encounter Care Teams Boat Joiner Helper Relationship Specialty Start Date End Date Jacobo Campos MD [facility] [address] [place] [address] PCP - General Internal Medicine 09/08/13 Erick Hickman MD [address] [place] [address] Assigned Neuroscience Provider 04/27/20 Boy Rousseau MD [address] [place], [place] [address] [address] Assigned Surgical Provider 04/27/20 12/26/23 documented as of this encounter
--- OUTSIDE RECORDS SUMMARY | 2024-04-19 13:28 | XMS_ITS | Encounter Summary ---
Author Organization [place] Address [address] [place] [address] Care Team Providers Care Medicine Aide Name Role Phone Jacobo Campos MD Primary Care Provider Erick Hickman MD Unavailable [phone] Boy Rousseau MD Unavailable [phone] Reason for Visit * Reason Onset Date Comments Prior Auth - Medication 03/09/2023 Aubagio (brand) 14MG Tablets (APPEAL DENIED) Encounter Details Date Type Department Care Team (Late st Contact Info) Description 03/09/2023 [facility] Medical Advice [facility] Multiple Sclerosis Clinic [address] [address] Erick Hickman MD [address] [place] [address] - [id number] [place] [address] Prior Auth - Medication (Aubagio [...] were not included. Aubagio appeal denial letter: LSTERY INSTRUCTOR * Telephone Encounter - Tamara Mccullough - 05/01/2023 10:43 AM CDT MEDICATION APPEAL DENIED Medication: AUBAGIO 14 MG PO TABS Insurance Company: [employer] Denial Date: 04/29/2023 Denial Rational: Must try/fail at least 2 preferred products: Teriflunomide, Gilenya, Mavenclad Second Level Appeal Information: N/A Patient Notified: Yes Central Prior Authorization Team ONLY: Second level appeals will be managed by the clinic staff andprovider. Please contact the [facility] Prior Authorization Team if additional information about the denial is needed. Spoke with insurance and confirmed the appeal was denied on 04/29/2023. A determination letter was mailed to the clinic. Request a copy be faxed as well. Thank you, Tamara Mccullough [facility] Liaison - Cardiology Neurology [place] [id number] [email or web address] * Telephone Encounter - Tamara Mccullough - 04/23/2023 2:00 PM CDT Confirmed that the appeal was resent 04/16, but was closed because they thought it was a duplicate.I spoke with Gege in [facility] and she provided another fax number to resend the appeal request. [phone] also sent to [phone] Thank you, Tamara Mccullough [facility] Liaison - Cardiology Neurology [facility] Sclerosis [address] [address] * Telephone Encounter - Tamara Mccullough - 04/16/2023 12:05 PM CDT Resubmitted appeal with update date, denial letter from 04/08, and OV from 09/2022. Thank you, Tamara Mccullough [facility] Liaison - Cardiology Neurology Multiple Sclerosis [facility] [address] [place] [address] * Telephone Encounter - Tamara Mccullough - 04/16/2023 10:50 AM CDT Spoke with [facility] Appeals and the business banking representative stated that since the appeal letter [...] the PA submission). Thank you, Tamara Mccullough [facility] Liaison - Cardiology Neurology Multiple Sclerosis [facility] [address] [place] [address] * Telephone Encounter - Tamara Mccullough - 04/08/2023 12:43 PM CDT Medication Appeal Initiation Medication: AUBAGIO 14 MG PO TABS Appeal Start Date: 04/08/2023 Insurance Company: [facility] Insurance Insurance Comments: Faxed and email appeal letter to [facility] [place] Thank you, Tamara Mccullough [facility] Liaison - Cardiology Neurology Multiple Sclerosis [address] [address] * Telephone Encounter - Tamara Mccullough - 04/08/2023 12:32 PM CDT Images from the original note were not included. PRIOR AUTHORIZATION DENIED Medication: AUBAGIO 14 MG PO TABS Insurance Company: [facility] - Denial Date: 04/06/2023 Denial Rational: [...] 14 MG PO TABS Insurance Company: [facility] - Pharmacy Filling the Rx: [facility] - [place], [place] - [address] Filling Pharmacy Phone: Filling Pharmacy Fax: Start Date: 04/06/2023 Thank you, Tamara Mccullough [facility] Liaison - Cardiology Neurology Multiple Sclerosis [address] [address] [email or web address] * Telephone Encounter - Erick Hickman MD [...] 1) To source this through the online [facility] pharmacy (cost as noted) 2) Switch to leflunomide (generic, not specifically approved for [place] and may not be covered by insurance but should have very similar effects as Aubagio--it is converted in the body to the active ingredient in Aubagio). Insurance may not cover for this indication, would be about $25/month through [facility] with a MonoLibre coupon. Other alternatives would include switching to a different medication or a trial off of disease modifying therapy. If she wants to discuss the latter two options she should make an appointment to discuss further. documented in this encounter Plan of Treatment Upcoming Encounters Date Type Department Care Team (Late st Contact Info) Description 05/24/2024 10:00 AM UPHOLSTERY INSTRUCTOR Virtual Visit [facility] Neurosurgery Clinic [address] 3rd [place] [address] Boy Rousseau MD [address] [place] [address] [id number] [place], [place] [address] 05/26/2024 9:30 AM UPHOLSTERY INSTRUCTOR Office Visit [facility] Multiple Sclerosis Clinic [address] [address] Erick Hickman MD [address] [place] [address] documented as of this encounter Visit Diagnoses Not on filedocumented in this encounter Care Teams Medicine Aide Relationship Specialty Start Date End Date Jacobo Campos MD [facility] [address] [place] [address] PCP - General Internal Medicine 09/08/13 Erick Hickman MD [address] [place] [address] Assigned Neuroscience Provider 04/27/20 Boy Rousseau MD [address] [place], [place] [address], [place] [address] Assigned Surgical Provider 04/27/20 12/26/23 documented as of this encounter
--- OUTSIDE RECORDS SUMMARY | 2024-04-19 13:28 | XMS_ITS | Encounter Summary ---
Author Organization [facility] Address [address] [place] [address]. [place] [address] Care Team Providers Care Commercial Sales Representative Name Role Phone Jacobo Campos MD Primary Care Provider Guerita Holbrook RN Unavailable Erick Hickman MD Unavailable [phone] Boy Rousseau MD Unavailable [phone] Reason for Visit * Reason Onset Date Comments Call Back 10/17/2020 Encounter Details Date Type Department Care Team (Late st Contact Info) Description 10/17/2020 Telephone [facility] [address] [address] Erick Hickman MD [address] [place] [address] - [id number] [place] [address] Call Back Social History Tobacco [...] Olga Vargas - 10/17/2020 3:53 PM CDT [facility] Phone Message May a detailed message be left on voicemail: yes Reason for Call: Other: Patient calling looking to speak with care team of Dr[facility] her provider in [place] is needing clarification/ confirmation if she is [...] st Contact Info) Description 05/24/2024 10:00 AM JOURNEYMAN PRESS OPERATOR Virtual Visit [facility] [address] 3rd [place] [phone] Boy Rousseau MD [address] [place], [place] [id number], [place] [address] 05/26/2024 9:30 AM JOURNEYMAN PRESS OPERATOR Office Visit [facility] [address] [address] Erick Hickman MD [address] [place] [address] [id number], [place] [address] documented as of this encounter Visit Diagnoses Not on filedocumented in this encounter Care Teams Commercial Sales Representative Relationship Specialty Start Date End Date Jacobo Campos MD [facility] [address] [place] [address] PCP - General Internal Medicine 09/08/13 Guerita Holbrook, RN Specialty Carcass Washer Neurology 06/22/15 02/28/21 Erick Hickman MD [address] [place] [address] - [id number], [place] [address] Assigned Neuroscience Provider 04/27/20 Boy Rousseau MD [address] [place], [place] [address], [place] [address] Assigned Surgical Provider 04/27/20 12/26/23 documented as of this encounter
--- OUTSIDE RECORDS SUMMARY | 2024-04-19 13:28 | XMS_ITS | Encounter Summary ---
Author Organization [facility] Address [address] [place] [address] Care Team Providers Care Welder Operator Name Role Phone Jacobo Campos MD Primary Care Provider Guerita Holbrook RN Unavailable Erick Hickman MD Unavailable [phone] Boy Rousseau MD Unavailable [phone] Encounter Details Date Type Department Care Team [...] Shoaib Garduno - 08/19/2012 1:15 PM CST Candle Molder Machine: Shoaib Garduno Status: Final - Signature Encounter: 2012-08-19 13:15:00.000 Type: Neurology Letter [facility] [address] [address] August 19, 2012 Jacobo Campos M.D. [address] [address] RE: Eliz Hartman : 1970 DHRUV: 08/19/2012 [...] she is going on a vacation to [place] soon. Current medications are Rebif, vitamin D, [...] Strength is normal. Sensory examination is intact. Fgcrnj-[id number] is done well. Her gait is normal, [...] aware of this while she is in [place]. She will continue to see me at least every six months. Sincerely, Shoaib Garduno MD Department of Neurology [facility] CLH:11 Electronically signed by:Shoaib Garduno M.D. Aug 19 2012 4:30PM LOOM WINDER TENDER WINDER TENDER documented in this encounter Plan of Treatment Upcoming Encounters Date Type Department Care Team (Late st Contact Info) Description 05/24/2024 10:00 AM LOOM WINDER TENDER Virtual Visit [address] [place] [address] Boy Rousseau MD [address] [address] 05/26/2024 9:30 AM LOOM WINDER TENDER Office Visit [facility] Multiple Sclerosis [address] [address] Erick Hickman MD [address] [place] [address] documented as of this encounter Visit Diagnoses Not on filedocumented in this encounter Care Teams Welder Operator Relationship Specialty Start Date End Date Jacobo Campos MD [facility] [address] [place] [address] PCP - General Internal Medicine 09/08/13 Guerita Holbrook, RN Specialty Nurse Wound Care Neurology 06/22/15 02/28/21 Erick Hickman MD [address] [place] [address] Assigned Neuroscience Provider 04/27/20 Boy Rousseau MD [address] [address] Assigned Surgical Provider 04/27/20 12/26/23 documented as of this encounter
--- OUTSIDE RECORDS SUMMARY | 2024-04-19 13:28 | XMS_ITS | Encounter Summary ---
Author Organization [facility] Address [address] [place] [address]. [place] [address] Care Team Providers Care Letter Carrier Name Role Phone Jacobo Campos MD Primary Care Provider Guerita Holbrook RN Unavailable Erick Hickman MD Unavailable [phone] Boy Rousseau MD Unavailable [phone] Reason for Visit * Reason Onset Date Comments Refill Request 05/18/2019 AUBAGIO 14 MG ta blet Encounter Details Date Type Department Care Team (Late st Contact Info) Description 05/18/2019 [facility] [address] [address] Erick Hickman MD [address] [place] [address] - [id number] [place] [address] Refill Request (AUBAGIO 14 MG [...] this. No further needs at this time. ERY CENTER ADMINISTRATOR * Telephone Encounter - Christopher De Anda - 05/18/2019 1:57 PM CST [facility] Phone Message May a detailed message be left on voicemail: no Reason for Call: Medication Refill Request Has the patient contacted the pharmacy for the refill? Yes Name of medication being requested: AUBAGIO 14 MG tablet Provider who prescribed the medication: Dr. Hickman Pharmacy: [id number] Specialty Date medication is needed: Pt [...] routed to: [facility] ERY CENTER ADMINISTRATOR documented in this encounter Plan of Treatment Upcoming Encounters Date Type Department Care Team (Late st Contact Info) Description 05/24/2024 10:00 AM SURGERY CENTER ADMINISTRATOR Virtual Visit [facility] Neurosurgery Clinic [address] 3rd [place] [phone] Boy Rousseau MD [address] [place], [place] [address], [place] [address] 05/26/2024 9:30 AM SURGERY CENTER ADMINISTRATOR Office Visit [facility]clerosis Clinic [address] [phone] Erick Hickman MD [address] [place] [address] - [id number] [place], [place] [address] documented as of this encounter Visit Diagnoses Diagnosis Multiple sclerosis (H) Multiple sclerosis documented in this encounter Care Teams Letter Carrier Relationship Specialty Start Date End Date Jacobo Campos MD [facility] [address] [place] [address] PCP - General Internal Medicine 09/08/13 Guerita Holbrook, DIVINE Specialty Clay Thrower Neurology 06/22/15 02/28/21 Erick Hickman MD [address] [place] [id number] [address] Assigned Neuroscience Provider 04/27/20 Boy Rousseau MD [address] [place], [place] [id number] [address] Assigned Surgical Provider 04/27/20 12/26/23 documented as of this encounter
--- OUTSIDE RECORDS SUMMARY | 2024-04-19 13:28 | XMS_ITS | Encounter Summary ---
Author Organization [facility] Address [address] [place] [address]. [place] [address] Care Team Providers Care Unemployment Specialist Name Role Phone Jacobo Campos MD Primary Care Provider Erick Hickman MD Unavailable Boy Rousseau MD Unavailable Reason for Visit * Reason Onset Date Comments Medication Compliance Issues 03/31/2023 Cov erage exception form Encounter Details Date Type Department Care Team (Late st Contact Info) Description 03/31/2023 [facility] [address] [address] Erick Hickman MD [address] [place] [address] - [id number] [place] [address] Medication Compliance Issues (Coverage exception [...] Myesha Goodman - 03/31/2023 10:02 AM CDT [facility] Phone Message May a detailed message be left on voicemail: yes Reason for Call: Medication Question or concern regarding medication Prescription Clarification Name of Medication: teriflunomide (AUBAGIO) 14 MG tablet [[id number]] (Order [id number]) Prescribing Provider: Erick Hickman MD Pharmacy: NA What on the order needs clarification? Caller Stated the Pt would need a Coverage Exception letter in order to continue the process for the medication under the plan, the form can be filled out on [employer], the pts coverage ends April 05. Action Taken: Message routed to: [facility] Neurology Travel Screening: Not Applicable documented in this encounter Plan of Treatment Upcoming Encounters Date Type Department Care Team (Late st Contact Info) Description 05/24/2024 10:00 AM GROUP PROGRAM MANAGER Virtual Visit [facility] [address] 3rd [place] [address] Boy Rousseau MD [address] [place], [place] [address], [place] [address] 05/26/2024 9:30 AM GROUP PROGRAM MANAGER Office Visit [facility] Multiple Sclerosis [address] [phone] Erick Hickman MD [address] [place] [address] - [id number] [address] documented as of this encounter Visit Diagnoses Not on filedocumented in this encounter Care Teams Unemployment Specialist Relationship Specialty Start Date End Date Jacobo Campos MD [facility] [address] [place] [address] PCP - General Internal Medicine 09/08/13 Erick Hickman MD [address] [facility] [address] - [id number] [place] [address] Assigned Neuroscience Provider 04/27/20 Boy Rousseau MD [address] [facility] [id number] [place] [address] Assigned Surgical Provider 04/27/20 12/26/23 documented as of this encounter
--- OUTSIDE RECORDS SUMMARY | 2024-04-19 13:28 | XMS_ITS | Encounter Summary ---
Author Organization [facility] Address [address] [place] [address] Care Team Providers Care Battery Loader Name Role Phone Jacobo Campos MD Primary Care Provider Guerita Holbrook RN Unavailable Erick Hickman MD Unavailable [phone] Boy Rousseau MD Unavailable [phone] Reason for Visit * Reason Onset Date Comments Call Back 11/28/2020 medical card for flight Encounter Details Date Type Department Care Team (Late st Contact Info) Description 11/28/2020 Telephone [facility] [address] [place] [address] Boy Rousseau MD [address] [place] [address] [id number] [place] [address] Call Back (medical card for [...] SUBSTANCE/DEVICE WEB SL 4X3 STENT NEUROFORM ATLAS [id number] 11/23/2019 documented in this encounter Miscellaneous Notes [...] Everett - 11/28/2020 11:36 AM CDT [facility] Call Center Phone Message May [...] st Contact Info) Description 05/24/2024 10:00 AM TUBERCULOSIS SPECIALIST Virtual Visit [facility] [address] 3rd [place] [address] Boy Rousseau MD [address] [place] [address] [id number] [place] [address] 05/26/2024 9:30 AM TUBERCULOSIS SPECIALIST Office Visit [facility] [address] [address] Erick Hickman MD [address] [place] [address] documented as of this encounter Visit Diagnoses Not on filedocumented in this encounter Care Teams Battery Loader Relationship Specialty Start Date End Date Jacobo Campos MD [facility] [address] [place] [address] PCP - General Internal Medicine 09/08/13 Guerita Holbrook, RN Specialty Coffee Plantation Worker Neurology 06/22/15 02/28/21 Erick Hickman MD [address] [place] [address] Assigned Neuroscience Provider 04/27/20 Boy Rousseau MD [address] [place], [place] [id number], [place] [address] Assigned Surgical Provider 04/27/20 12/26/23 documented as of this encounter
--- OUTSIDE RECORDS SUMMARY | 2024-04-19 13:28 | XMS_ITS | Encounter Summary ---
Author Organization [facility] Address [address] [place] [address] Care Team Providers Care Wage And Salary Administrator Name Role Phone Jacobo Campos MD Primary Care Provider Guerita Holbrook RN Unavailable Erick Hickman MD Unavailable [phone] Boy Rousseau MD Unavailable [phone] Reason for Visit * Reason Onset Date Comments Prior Auth - Medication 06/23/2019 teriflun omide (AUBAGIO) 14 MG tablet Call Back 06/23/2019 Encounter Details Date Type Department Care Team (Late st Contact Info) Description 06/23/2019 Telephone [facility] Sclerosis [facility] [address] [address] Erick Hickman MD [address] [place] [address] - [id number] [place], [place] 6[address] Prior Auth - Medication (teriflunomide (AUBAGIO) 14 [...] Rx sent to [facility]. OGRAPHIC AIDE * Telephone Encounter - Tamara Mccullough - 07/07/2019 1:01 PM CST Images from the original note were not included. I spoke with the patient and she can now fill with [facility]. I've already added her insurance through [employer] [place] and obtained her copay card and added both to their system. A new RX for Aubagio will need to be sent to [facility] to initiate their new patient process. PDM Copay Card: [facility] Of [place] insurance: Thank you, aTmara Mccullough CPh-T [facility] [address] 3rd [place] [address] [email or web address] OGRAPHIC AIDE * Telephone Encounter - Charley Horowitz RN - 07/07/2019 11:48 AM CST Tamara, please see below. Patient states she changed insurance. Can you investigate what pharmacy sheshould use? OGRAPHIC AIDE * Telephone Encounter - Carlos Godwin - 07/07/2019 9:50 AM CARTOGRAPHIC AIDE [facility] Phone Message May a detailed message be left on voicemail: yes Reason for Call: Other: Aleishaalie calling to request a call back. She states she switched insurance to [employer] and pharmacies to [facility]. She would like to know if she's able to get her Aubagio. ([facility] , Phone# [phone]) Please call her back to discuss. Action Taken: Message routed to: [facility] neuro OGRAPHIC AIDE * Telephone Encounter - Joy Guevara - 06/24/2019 9:33 AM CST Images from the original note were not included. Prior Authorization Approval Authorization Effective Date: 06/24/2019 Authorization Expiration Date: 06/24/2020 Medication: teriflunomide (AUBAGIO) 14 MG tablet Approved Dose/Quantity: 30 Reference #: [id number] Insurance Company: [employer] [phone] Which Pharmacy is filling the prescription (Not needed for infusion/clinic administered): [facility] [place] [address] [employer] Renewal- no interruption in therapy - previous PA was good until 07/08/2019 OGRAPHIC AIDE * Telephone Encounter - Joy Guevara - 06/23/2019 3:11 PM CST PA Initiation Medication: teriflunomide (AUBAGIO) 14 MG tablet Insurance Company: [employer] [phone] Pharmacy Filling the Rx: [facility] [place] [address] [employer] Filling Pharmacy Phone: Filling Pharmacy Fax: Start Date: 06/23/2019 Central Prior Authorization Team Filled out form and faxed it to [facility] fax# [phone] OGRAPHIC AIDE * Telephone Encounter - Felicia Morin - 06/23/2019 10:20 AM CST Images from the original note were not included. OGRAPHIC AIDE documented in this encounter Plan of Treatment Upcoming Encounters Date Type Department Care Team (Late st Contact Info) Description 05/24/2024 10:00 AM CARTOGRAPHIC AIDE Virtual Visit [facility] Neurosurgery [address] [address] Boy Rousseau MD [address] [place] [address] 05/26/2024 9:30 AM CARTOGRAPHIC AIDE Office Visit [facility] [address] [phone] Erick Hickman MD [address] [place] [address] documented as of this encounter Visit Diagnoses Diagnosis Multiple sclerosis (H)- Primary Multiple sclerosis documented in this encounter Care Teams Wage And Salary Administrator Relationship Specialty Start Date End Date Jacobo Campos MD [facility] [address] [place] [address] PCP - General Internal Medicine 09/08/13 Guerita Holbrook, RN Specialty International Logistics Analyst Neurology 06/22/15 02/28/21 Erick Hickman MD [address] [place] [address] Assigned Neuroscience Provider 04/27/20 Boy Rousseau MD [address] [place] [address] Assigned Surgical Provider 04/27/20 12/26/23 documented as of this encounter
--- OUTSIDE RECORDS SUMMARY | 2024-04-19 13:28 | XMS_ITS | Encounter Summary ---
Author Organization [facility] Address [address] [place] [address] Care Team Providers Care Electrical Helper Name Role Phone Jacobo Campos MD Primary Care Provider Guerita Holbrook RN Unavailable Erick Hickman MD Unavailable [phone] Boy Rousseau MD Unavailable [phone] Reason for Visit * Reason Onset Date Comments letter and symptoms 01/26/2020 update worka bility letter and discuss symptoms. Encounter Details Date Type Department Care Team ([facility] st Contact Info) Description 01/26/2020 Telephone [facility] [address] [place] [address] 3rd [place] [address] Boy Rousseau MD [address] [place] [address] [id number] [place] [address] letter and symptoms (update workability [...] Jenae Oquendo Taken Imaging disc received from [facility] and sent to [facility] to be uploaded into PACs. 01/25/20 - Cervical Spine WO * Telephone Encounter - Charley Horowitz RN - 01/27/2020 3:[address] [facility] and they will fax c-spine MRI report from 01/24. They are unable to push images to [facility] and won't send a disc without an updated JED. I called the patient and she will call [facility] and have them release images. [...] primary care provider, Dr. Jacobo Campos at [facility]. Dr. Campos reportedly stated that [...] and discuss MRI. * Patient will contact [facility] to have imaging sent/pushed to PACS Patient [...] at work. Fax number to [employer]: [phone] Please call once request is complete and to discuss. Action Taken: Other: [facility] Travel Screening: Not Applicable documented in this encounter Plan of Treatment Upcoming Encounters Date Type Department Care Team (Late st Contact Info) Description 05/24/2024 10:00 AM BEHAVIORAL SCHOOL COUNSELORS Virtual Visit [facility] Neurosurgery Clinic [address] 3rd [place] [address] Boy Rousseau MD [address] [place], [place] [address], [place] [address] 05/26/2024 9:30 AM BEHAVIORAL SCHOOL COUNSELORS Office Visit [facility] Multiple Sclerosis Clinic [address] [phone] Erick Hickman MD [address] [place] [address] [id number], [place] [address] documented as of this encounter Visit Diagnoses Not on filedocumented in this encounter Care Teams Electrical Helper Relationship Specialty Start Date End Date Jacobo Campos MD [facility] [address] [place] [address] PCP - General Internal Medicine 09/08/13 Guerita Holbrook, RN Specialty Manager Heavy Duty Neurology 06/22/15 02/28/21 Erick Hickman MD [address] [facility] - [id number] [address] Assigned Neuroscience Provider 04/27/20 Boy Rousseau MD [address] [place], [place] [address], [place] [address] Assigned Surgical Provider 04/27/20 12/26/23 documented as of this encounter
--- OUTSIDE RECORDS SUMMARY | 2024-04-19 13:28 | XMS_ITS | Encounter Summary ---
Author Organization [facility] Address [address] [place] [address] Care Team Providers Care Case Liner Name Role Phone Jacobo Campos MD Primary Care Provider Erick Hickman MD Unavailable [phone] Boy Rousseau MD Unavailable [phone] Reason for Visit * Reason Onset Date Comments Medication Request 04/30/2023 teriflunomide (AUBAGIO) 14 MG tablet Encounter Details Date Type Department Care Team (Late st Contact Info) Description 04/30/2023 Telephone [facility] Multiple Sclerosis Clinic [address] [phone] Erick Hickman MD [address] [place] [address] [id number] [place], [place] [address] Medication Request (teriflunomide (AUBAGIO) 14 MG tablet [...] Ayala Violet - 04/30/2023 4:09 PM CDT [facility] Phone Message May a detailed message be left on voicemail: yes Reason for Call: Medication Question or concern regarding medication Prescription Clarification Name of Medication: teriflunomide (AUBAGIO) 14 MG tablet Prescribing Provider: Dr. Hickman Pharmacy: [facility] specialty pharmacy What on the order needs clarification? Mikki from the [facility] specialty pharmacy is requesting [...] st Contact Info) Description 05/24/2024 10:00 AM SUPERVISING EDITOR NEWS REEL Virtual Visit [facility] Neurosurgery [address] 3rd [place] [phone] Boy Rousseau MD [address] [place], [place] [id number] [address] 05/26/2024 9:30 AM SUPERVISING EDITOR NEWS REEL Office Visit [facility] Multiple Sclerosis [address] [phone] Erick Hickman MD [address] [place] [id number] [address] documented as of this encounter Visit Diagnoses Diagnosis Multiple sclerosis (H) Multiple sclerosis documented in this encounter Care Teams Case Liner Relationship Specialty Start Date End Date Jacobo Campos MD [facility] [address] [place] [address] PCP - General Internal Medicine 09/08/13 Erick Hickman MD [address] [facility] SE - [id number] [place] [address] Assigned Neuroscience Provider 04/27/20 Boy Rousseau MD [address] [facility] [id number] [place] [address] Assigned Surgical Provider 04/27/20 12/26/23 documented as of this encounter
--- OUTSIDE RECORDS SUMMARY | 2024-04-19 13:28 | XMS_ITS | Encounter Summary ---
Author Organization [place] Address [address] [place] [address]. [place] [address] Care Team Providers Care Home Organizer Name Role Phone Jacobo Campos MD Primary Care Provider Guerita Holbrook RN Unavailable Erick Hickman MD Unavailable [phone] Boy Rousseau MD Unavailable [phone] Reason for Visit * Reason Onset Date Comments Patient Request 2019 Encounter Details Date Type Department Care Team (Late st Contact Info) Description 2019 Telephone [facility] [address] [address] Erick Hickman MD [address] [place] [address] - [id number] [place] [address] Patient Request Social History Tobacco [...] a PA. She states it is a [employer] vendor that send out the authorization. It is suppose to come from her primary care provider and MD performing procedure. Patient just wants to ensure that procedure will be covered. Message sent to Financial Counseling to see if they are able to assist. * Telephone Encounter - Michelle Obrien - 2019 9:27 AM CDT [facility] Phone Message May a detailed message be left on voicemail: yes Reason for Call: Other: Pt requesting a referral be sent to her insurance regarding a cerebral angiogram that she is having done on 10/04. Pt requesting call back to discuss Action Taken: Message routed to: [facility]): neuro Travel Screening: Not Applicable documented in this encounter Plan of Treatment Upcoming Encounters Date Type Department Care Team (Late st Contact Info) Description 05/24/2024 10:00 AM CERTIFIED CREDIT COUNSELOR Virtual Visit [facility] [address] 3rd [place] [phone] Boy Rousseau MD [address] [place], [place] [address] [address] 05/26/2024 9:30 AM CERTIFIED CREDIT COUNSELOR Office Visit [facility] [address] [phone] Erick Hickman MD [address] [place] [address] [id number], [place] 729804 documented as of this encounter Visit Diagnoses Not on filedocumented in this encounter Care Teams Home Organizer Relationship Specialty Start Date End Date Jacobo Campos MD [facility] [address] [place] [address] PCP - General Internal Medicine 09/08/13 Guerita Holbrook, RN Specialty Phlebotomy Specialist Neurology 06/22/15 02/28/21 Erick Hickman MD [address] [place] [address] - [id number] [address] Assigned Neuroscience Provider 04/27/20 Boy Rousseau MD [address] [place], [place] [address], [place] [address] Assigned Surgical Provider 04/27/20 12/26/23 documented as of this encounter
--- OUTSIDE RECORDS SUMMARY | 2024-04-19 13:28 | XMS_ITS | Encounter Summary ---
Author Organization [place] Address [address] [place] [address] Care Team Providers Care Acid Filler Name Role Phone Jacobo Campos MD Primary Care Provider Guerita Holbrook RN Unavailable Erick Hickman MD Unavailable [phone] Boy Rousseau MD Unavailable [phone] Reason for Visit * Reason Onset Date Comments Appointment 12/08/2019 Upcoming appoint ment question Encounter Details Date Type Department Care Team (Late st Contact Info) Description 12/08/2019 Telephone [facility] Neurosurgery [address] [facility] 3rd [place] [address] Boy Rousseau MD [address] [place] [address] [id number] [place] [address] Appointment (Upcoming appointment question) Social [...] Antonina Torres - 12/08/2019 8:39 AM CDT [facility] Phone Message May a detailed message [...] st Contact Info) Description 05/24/2024 10:00 AM CHIEF PHARMACIST Virtual Visit [facility] Neurosurgery [address] 3rd [place] [phone] Boy Rousseau MD [address] [employer] [employer] [place] [id number], [place] [address] 05/26/2024 9:30 AM CHIEF PHARMACIST Office Visit [facility] Multiple Sclerosis [address] [phone] Erick Hickman MD [address] [place] [address] - [id number], [place] [address] documented as of this encounter Visit Diagnoses Not on filedocumented in this encounter Care Teams Acid Filler Relationship Specialty Start Date End Date Jacobo Campos MD [facility] [address] [place] [address] PCP - General Internal Medicine 09/08/13 Guerita Holbrook, RN Specialty Interactive Media Marketing Specialist Neurology 06/22/15 02/28/21 Erick Hickman MD [address] [facility] - [id number] [address] Assigned Neuroscience Provider 04/27/20 Boy Rousseau MD [address] [place] [id number], [place] [address] Assigned Surgical Provider 04/27/20 12/26/23 documented as of this encounter
--- NOTE | 2024-04-19 13:45 | MR_ITS ---
[address] [address] Phone:?[phone] Fax:?[phone] Referring Physician Information: Sunil Desouza M.D. [address] [facility] [address] Phone:?[phone] Fax:?[phone] Patient:?Eliz Roth D.O.B:?1970 Sex:?Female Phone:?[phone] [facility] MRN:?[id number] Exam Date:?04/19/2024 EXAM: MRI of the LEFT SHOULDER, without contrast CLINICAL INFORMATION: Female, 53 years old, with left shoulder pain. INDICATION: Evaluate for rotator cuff tear. PRIOR SURGERY: None reported. PLAIN FILMS: Left shoulder radiograph dated 04/07/2024. COMPARISONS: No prior MRIs available. TECHNICAL INFORMATION: Using a 1.5T MR scanner and a localizing surface coil: coronal obliques: PD, T2, STIR sagittal obliques: PD, T2 axials: PD, T2 SEDATION: None CONTRAST: None FINDINGS: Bones: Proximal humerus: No fracture or marrow edema/pathology. No humeral Hill-Sachs or reverse Hill-Sachs lesion/impaction or contusion. Glenoid: No fracture or marrow edema/pathology. No osseous Bankart lesion. Rotator cuff and muscles/tendons: Supraspinatus: Full width, Full-thickness tear of supraspinatus, with tendon retraction to medial aspect of the humeral head and grade 2 muscle atrophy. Infraspinatus: Full width, Full-thickness tear of infraspinatus, with tendon retraction to medial aspect of the humeral head and grade 2 muscle atrophy. Teres minor: No tendinopathy, tear or atrophy. Subscapularis: Broad-based ssslbewrymaa-uvyz-dxzdd tearing involving the majority of the lesser tuberosity attachment, which is retracted to the medial aspect of the humeral head (axial T2 series 4 image 14). Deltoid: No strain or atrophy. Coracoacromial arch: Acromion morphology: The acromion has type I morphology. No discrete subacromial osseous spur or os acromiale. Acromiohumeral space: The acromiohumeral space is within normal limits. Coracohumeral space: The coracohumeral space is within normal limits. Acromioclavicular joint: Joint: Mild AC joint arthropathy, without evidence of supraspinatus impingement. Ligaments: Coracoclavicular ligaments are intact. Bursae: Subacromial-subdeltoid: Moderate subacromial-subdeltoid bursal fluid. Subcoracoid: No convincing subcoracoid bursal thickening/bursitis. Biceps tendon: Nonvisualization of the biceps long head tendon. Glenohumeral joint: Effusion/cyst: No significant glenohumeral joint effusion. Articular cartilage: Humeral head: Mild-moderate thinning of the humeral head articular cartilage, with mild inferomedial marginal osteophytosis. Glenoid: Mild thinning the glenoid articular cartilage, with mild posterior marginal osteophytosis. Loose bodies: No discrete intra-articular body within the joint. Labrum:?Intrasubstance degeneration and fraying of the superior labrum, without more well-defined labral tear. Inferior glenohumeral ligament/axillary pouch:?Intact. The axillary pouch is normal in thickness and signal. No evidence of adhesive capsulitis or capsular injury. IMPRESSION: 1. Full-width, full-thickness tears of supraspinatus & infraspinatus, tendon retraction to the medial aspect of the humeral head and grade 2 muscle atrophy. 2. Findings in keeping with a high-grade biceps juan c injury: -Broad-based gcporapmkzjm-lwye-magye tearing of the lesser tuberosity attachment of subscapularis, which is retracted to the medial aspect of the humeral head. -Nonvisualization the biceps long head tendon, which is suggestive of a full- thickness disruption or tendon retraction. 3. Mild osteoarthritis of the glenohumeral joint. 4. Mild AC joint arthropathy with moderate subacromial-subdeltoid bursal fluid. However, the acromiohumeral space is normal. 5. Intrasubstance degeneration and fraying of the superior labrum, which is of doubtful clinical significance. BC Electronically signed on 04/20/2024 8:58:00 AM by Armando Carter M.D.
== END 2024-04-19 13:25 | disposition home or self-care (01) ==
LOC: MRI 13:25
PROVIDERS: PCP Internal Medicine; Visit Provider Orthopaedic Surgery Sports Medicine
DX: M25.512 Pain in left shoulder (principal); M75.102 Unspecified rotator cuff tear or rupture of left shoulder, not specified as traumatic; S46.912A Strain of unspecified muscle, fascia and tendon at shoulder and upper arm level, left arm, initial encounter; M19.012 Primary osteoarthritis, left shoulder; S46.012A Strain of muscle(s) and tendon(s) of the rotator cuff of left shoulder, initial encounter; S49.92XA Unspecified injury of left shoulder and upper arm, initial encounter
CPT/HCPCS: 73221

== ENCOUNTER 2024-05-13 14:04 | Outpatient (CLI) | payer BC, SELFPAY ==
--- OUTSIDE RECORDS SUMMARY | 2024-05-13 14:07 | XMS_ITS | Encounter Summary ---
Author Organization [place] Address [address] [place] [address] Care Team Providers Care Expense Clerk Name Role Phone Jacobo Campos MD Primary Care Provider Erick Hickman MD Unavailable [phone] Boy Rousseau MD Unavailable [phone] Reason for Visit * Reason Onset Date Comments Medication Question 04/10/2023 MS oral medi cation Encounter Details Date Type Department Care Team (Late st Contact Info) Description 04/10/2023 [facility] [address] [address] Erick Hickman MD [address] [place] [address] - [id number] [place] [address] Medication Question (MS oral medication ) Social History Tobacco Use Types Packs/Day Years Used Date Smoking Tobacco: Former Smokeless Tobacco: Never Alcohol Use Standard Drinks/Week Comments Yes 0 (1 standard drink = 0.6 oz pur e alcohol) occasional PHQ-2 Answer Date Recorded PHQ-2 Score 0 09/25/2022 Adolescent Education Answer Date Record ed Getting School Help Needed Not on file 03/27 Comments No Sex and Gender Information Value Date Recorded Sex Assigned at Not on file Legal Sex Female 10:56 AM OFFICE SPECIALIST Gender Identity Not on file Sexual Orientation Not on file documented as of this encounter Miscellaneous Notes * Telephone Encounter - Violet Cai - 04/10/2023 9:39 AM CDT [facility] Phone Message May a detailed [...] discuss. Please call patient and advise at [phone]. Action Taken: Message routed to: [facility] MS Neurology Travel Screening: Not Applicable documented in this encounter Plan of Treatment Upcoming Encounters Date Type Department Care Team (Late st Contact Info) Description 05/24/2024 10:00 AM OFFICE SPECIALIST Virtual Visit [facility] Neurosurgery [address] 3rd [place] [phone] Boy Rousseau MD [address] [place], [place] [id number], [place] [address] 05/26/2024 9:30 AM OFFICE SPECIALIST Office Visit [facility] Multiple Sclerosis [address] [phone] Erick Hickman MD [address] [place] [address] [id number], [place] [address] documented as of this encounter Visit Diagnoses Not on filedocumented in this encounter Care Teams Expense Clerk Relationship Specialty Start Date End Date Jacobo Campos MD [facility] [address] [place] [address] PCP - General Internal Medicine 09/08/13 Erick Hickman MD [address] [facility] [address] - [id number] [place] [address] Assigned Neuroscience Provider 04/27/20 Boy Rousseau MD [address] [facility] [id number] [place], [place] [address] Assigned Surgical Provider 04/27/20 12/26/23 documented as of this encounter
--- OUTSIDE RECORDS SUMMARY | 2024-05-13 14:07 | XMS_ITS | Referral Summary ---
Author Organization [place] Address [address] [place] [address] Care Team Providers Care Rfid Systems Engineer Name Role Phone Jacobo Campos MD Primary Care Provider Erick Hickman MD Unavailable [phone] Encounters Date Type Department Care Team Description 05/02/2024 Documentation Only [facility] Neurosurgery [address] [address] Orion Fernando, [facility] 05/02/2024 Documentation Only [facility] Neurosurgery [address] [address] Orion Fernando, [facility] 05/02/2024 Telephone [facility] Neurology [address] [phone] Boy Rousseau MD Clinicals (Needs clinicals for the [facility]) 04/05/2024 Refill [facility] Multiple Sclerosis [address] [phone] Erick Hickman MD Medication Refill (Teriflunomide ) 02/19/2024 Documentation Only [facility] Neurology [address] [address] Boy Rousseau MD 02/18/2024 Telephone [facility] Clinic [address] [place] [phone] Boy Rousseau MD 02/11/2024 Orders Only [facility] Neurology Clinic [address] [place] [phone] Dian Gibbs RN MS (multiple sclerosis) (H) (Primary Dx); Nonruptured cerebral aneurysm from Last 3 Months Allergies Active Allergy Reactions Criticality Noted Date Comments Glatiramer Other (See Comments) High 03/26/2015 Skin and fever Medications Multiple Vitamins-Calcium (ONE-A-DAY WOMENS FORMULA PO) Take by mouth daily Active Cholecalciferol (VITAMIN D) 2000 UNITS CAPS Take 2,000 Units by mouth Active Calcium Carbonate-Vitami n D (CALCIUM + D PO) Take by mouth daily Active Cyanocobalamin (VITAMIN B-12 PO) Take 1 tablet by mouth daily Active estradiol (VIVELLE-DOT) 0.1 MG/24HR BIW patch 7 Active fluconazole (DIFLUCAN) 150 MG tablet Take 150 mg by mouth 6 Active metroNIDAZOLE (METROGEL) 0.75 % vaginal gel 7 Active CRANBERRY PO Take 1 tablet by mouth daily Active BIOTIN PO Take 1 tablet by mouth daily Active triamcinolone (ARISTOCORT HP) 0.5 % external cream 0 Active Ascorbic Acid (VITAMIN C) 500 MG CAPS Active vitamin E 400 units TABS Take 400 Units by mouth daily Active acetaminophen (TYLENOL) 500 MG tablet Take 500-1,000 mg by mouth every 6 hours as needed for mild pain Active tamsulosin (FLOMAX) 0.4 MG capsuleIndicatio ns:Neurogenic bladder Take 1 capsule (0.4 mg) by mouth daily 90 capsule 3 4 Active nortriptyline (PAMELOR) 25 MG capsuleIndicatio ns:Nonintractabl e headache, unspecified chronicity pattern, unspecified headache type TAKE 2 CAPSULES BY MOUTH AT BEDTIME 180 capsule 3 4 Active teriflunomide (AUBAGIO) 14 MG tabletIndication s:Multiple sclerosis (H) Take 1 tablet (14 mg) by mouth daily 90 tablet 3 4 Active Active Problems Problem Noted Date Diagnosed [...] on file Legal Sex Female 10:56 AM BLACK LEATHER BUFFER Gender Identity Not on file Sexual Orientation Not on file Last Filed Vital Signs Vital Sign Reading Time Taken Comments Blood Pressure 130/83 10/08/2023 9:22 AM CDT Pulse 96 10/08/2023 9:22 AM CDT Temperature 36.6 ??C (97.8 ??F) 05/25/2020 8 :33 AM BLACK LEATHER BUFFER Respiratory Rate 16 05/25/2020 12:3 2 PM BLACK LEATHER BUFFER Oxygen Saturation 100% 10/08/2023 9:2 2 AM CDT Inhaled Oxygen Concentration - - Weight 68.9 kg (151 lb 12.8 oz) 10/08/2023 9:22 AM CDT with out shoes Height 170.2 cm (5' 7) 08/16/2020 10:5 6 AM BLACK LEATHER BUFFER Body Mass Index 23.78 08/16/2020 10:56 AM BLACK LEATHER BUFFER Plan of Treatment Upcoming Encounters Date Type Department Care Team (Late st Contact Info) Description 05/24/2024 10:00 AM BLACK LEATHER BUFFER Virtual Visit [facility] Neurosurgery Clinic [address] 3rd [place] [address] Boy Rousseau MD [address] [place] [address] [id number] [place], [place] [address] 05/26/2024 9:30 AM BLACK LEATHER BUFFER Office Visit [facility] [address] [address] Erick Hickman MD [address] [facility] - [id number] [place] [address] Medical Devices Implanted Type Area Documentation Designer Device Identifier Shelf Expiration Date Model / Serial / Lot Embolic Substance/Dev ice Web Sl 4x3-11/23/2019 Implanted:Qty : 1 on 11/23/2019 by Boy Rousseau MD Embolic Substance/D evice Right: Carotid MICROVENTION 02/18/2020 [id number] / / [id number] Stent Neuroform [place] 3x21- 0 Implanted:Qty : 1 on 11/23/2019 by Boy Rousseau MD Stent Right: Carotid CHAYITO 11/17/2023 [id number] / / [id number] Procedures Procedure Name Priority Date/Time Associated Diagnosis Comments BASIC METABOLIC PANEL Routine 05/23/2020 8:48 AM BLACK LEATHER BUFFER Intracranial aneurysm from Last 3 Months or Most Recently Relevant to Health Maintenance Results * Basic metabolic panel FUTURE anytime (05/23/2020 8:48 AM BLACK LEATHER BUFFER) Sodium 141 133 - 144 mmol/L 05/23/2020 1:58 PM [facility] Potassium 3.6 3.4 - 5.3 mmol/L 05/23/2020 1:58 PM [facility] Chloride 105 94 - 109 mmol/L 05/23/2020 1:58 PM [facility] Carbon Dioxide 27 20 - 32 mmol/L 05/23/2020 2:26 PM [facility] Anion Gap 9 3 - 14 mmol/L 05/23/2020 2:26 PM [facility] Glucose 87 70 - 99 mg/dL 05/23/2020 2:26 PM [facility] Urea Nitrogen 14 7 - 30 mg/dL 05/23/2020 2:26 PM [facility] Creatinine 0.73 0.52 - 1.04 mg/dL 05/23/2020 2:26 PM [facility] GFR Estimate >90 >60 mL/min/{1 .73_m2} 05/23/2020 2:26 PM BLACK LEATHER BUFFER [facility] Comment: Non GFR Calc Starting 06/22/2018, serum creatinine based estimated GFR (eGFR) will be calculated using the Chronic Kidney Disease Epidemiology Collaboration (CKD-EPI) equation. GFR Estimate If Black >90 >60 mL/min/{1 .73_m2} 05/23/2020 2:26 PM BLACK LEATHER BUFFER [facility] Comment: GFR Calc Starting 06/22/2018, serum creatinine based estimated GFR (eGFR) will be calculated using the Chronic Kidney Disease Epidemiology Collaboration (CKD-EPI) equation. Calcium 9.5 8.5 - 10.1 mg/dL 05/23/2020 2:26 PM BLACK LEATHER BUFFER [facility] Blood specimen (specimen) 05/23/2020 8:48 AM BLACK LEATHER BUFFER 05/23/2020 8:53 AM BLACK LEATHER BUFFER us Lin Daily MD LAB - BLOOD ORDERABLES Final Res ult [facility] [address] [place], [place] [address] [phone] [facility] [address] [place] [address] from Last 3 Months or Most Recently Relevant to Health Maintenance Insurance [facility] BCBS OF ID BCBS OF ID Care Teams Rfid Systems Engineer Relationship Specialty Start Date End Date Jacobo Campos MD [facility] [address] [place] [address] PCP - General Internal Medicine 09/08/13 Erick Hickman MD [address] [place] [address] [id number] [place] [address] Assigned Neuroscience Provider 04/27/20
--- OUTSIDE RECORDS SUMMARY | 2024-05-13 14:07 | XMS_ITS | Encounter Summary ---
Author Organization [place] Address [address] [place] [address] Care Team Providers Care Dictaphone Typist Name Role Phone Jacobo Campos MD Primary Care Provider Guerita Holbrook RN Unavailable Erick Hickman MD Unavailable [phone] Boy Rousseau MD Unavailable [phone] Reason for Visit * Reason Onset Date Comments Appointment 12/08/2019 Upcoming appoint ment question Encounter Details Date Type Department Care Team (Late st Contact Info) Description 12/08/2019 Telephone Health Neurosurgery [address] [facility] [address] 3rd [place] [address] Boy Rousseau MD [address] [place] [address] [id number] [place] [address] Appointment (Upcoming appointment question) Social History Tobacco Use Types Packs/Day Years Used Date Smoking Tobacco: Former Smokeless Tobacco: Never Alcohol Use Standard Drinks/Week Comments Yes 0 (1 standard drink = 0.6 oz pur e alcohol) occasional PHQ-2 Answer Date Recorded PHQ-2 Score 0 07/14/2018 Comments No Sex and Gender Information Value Date Recorded Sex Assigned at Not on file Legal Sex Female 10:56 AM INVESTMENT OFFICER Gender Identity Not on file Sexual Orientation [...] Antonina Torres - 12/08/2019 8:39 AM CDT [facility] Phone Message May a detailed message [...] st Contact Info) Description 05/24/2024 10:00 AM INVESTMENT OFFICER Virtual Visit [facility] Neurosurgery [address] 3rd [place] [address] Boy Rousseau MD [address] [place], [place] [id number] [place], [place] [address] 05/26/2024 9:30 AM INVESTMENT OFFICER Office Visit [facility] Multiple Sclerosis [address] [phone] Erick Hickman MD [address] [place] [address] - [id number] [place], [place] [address] documented as of this encounter Visit Diagnoses Not on filedocumented in this encounter Care Teams Dictaphone Typist Relationship Specialty Start Date End Date Jacobo Campos MD [facility] [address] [place] [address] PCP - General Internal Medicine 09/08/13 Guerita Holbrook, DIV[employer] Specialty Technology Assistant Neurology 06/22/15 02/28/21 Erick Hickman MD [address] [place], [place] [id number] [address] Assigned Neuroscience Provider 04/27/20 Boy Rousseau MD [address] [place], [place] [address], [place] [address] Assigned Surgical Provider 04/27/20 12/26/23 documented as of this encounter
--- OUTSIDE RECORDS SUMMARY | 2024-05-13 14:07 | XMS_ITS | Encounter Summary ---
Author Organization [place] Address [address] [place] [address] Care Team Providers Care Beam Doffer Name Role Phone Jacobo Campos MD Primary Care Provider Erick Hickman MD Unavailable [phone] Encounter Details Date Type Department Care Team (Late st Contact Info) Description 02/18/2024 [facility] Neurosurgery Clinic [address] 3rd [place] [address] Boy Rousseau MD [address] [place], [place] [address]121[place]J [place] [address] Social History Tobacco Use Types [...] on file Legal Sex Female 10:56 AM STAFF DEVELOPMENT COORDINATOR Gender Identity Not on file Sexual Orientation Not on file documented as of this encounter Miscellaneous Notes * Telephone Encounter - Diana Villar - 02/18/2024 5:16 PM CDT Called patient and scheduled appointment w/ Dr. Rousseau via [employer] [place] [employer]. Patient will have theMRA done at [facility]. Sent message to Alecia Magallon to fax the order. -KB documented in this encounter Plan of Treatment Upcoming Encounters Date Type Department Care Team (Late st Contact Info) Description 05/24/2024 10:00 AM STAFF DEVELOPMENT COORDINATOR Virtual Visit [facility] Neurosurgery [address]rd [place] [phone] Boy Rousseau MD [address] [place], [place] [address], [place] [address] 05/26/2024 9:30 AM STAFF DEVELOPMENT COORDINATOR Office Visit [facility] Multiple Sclerosis [address] [phone] Erick Hickman MD [address] [place] [address] documented as of this encounter Visit Diagnoses Not on filedocumented in this encounter Care Teams Beam Doffer Relationship Specialty Start Date End Date Jacobo Campos MD [facility] [address] [place] [address] PCP - General Internal Medicine 09/08/13 Erick Hickman MD [address] [place] [address] Assigned Neuroscience Provider 04/27/20 documented as of this encounter
--- OUTSIDE RECORDS SUMMARY | 2024-05-13 14:07 | XMS_ITS | Encounter Summary ---
Author Organization [facility] Address [address] [place] [address] Care Team Providers Care Bag Grader Name Role Phone Jacobo Campos MD Primary Care Provider Erick Hickman MD Unavailable [phone] Boy Rousseau MD Unavailable [phone] Reason for Visit * Reason Onset Date Comments Prior Auth - Medication 03/09/2023 Aubagio (brand) 14MG Tablets (APPEAL DENIED) Encounter Details Date Type Department Care Team (Late st Contact Info) Description 03/09/2023 [facility] Medical Advice [facility] [address] [phone] Erick Hickman MD [address] [place] [address] - [id number] [place] [address] Prior Auth - Medication (Aubagio (brand) 1... Social History Tobacco Use Types Packs/Day Years Used Date Smoking Tobacco: Former Smokeless Tobacco: Never Alcohol Use Standard Drinks/Week Comments Yes 0 (1 standard drink = 0.6 oz pur e alcohol) occasional PHQ-2 Answer Date Recorded PHQ-2 Score 0 09/25/2022 Comments No Sex and Gender Information Value Date Recorded Sex Assigned at Not on file Legal Sex Female 10:56 AM WEATHER FORCASTER Gender Identity Not on file Sexual Orientation Not on file documented as of this encounter Miscellaneous Notes * Telephone Encounter - Tamara Mccullough - 05/11/2023 8:02 AM CST Images from the original note were not included. Aubagio appeal denial letter: HER FORCASTER * Telephone Encounter - Tamara Mccullough - 05/01/2023 10:43 AM CDT MEDICATION APPEAL DENIED Medication: AUBAGIO 14 MG PO TABS Insurance Company: [employer] Denial Date: 04/29/2023 Denial Rational: Must try/fail at least 2 preferred products: Teriflunomide, Gilenya, Mavenclad Second Level Appeal Information: N/A Patient Notified: Yes [place] Prior Authorization Team ONLY: Second level appeals will be managed by the clinic staff andprovider. Please contact the [facility] Prior Authorization Team if additional information about the denial is needed. Spoke with insurance and confirmed the appeal was denied on 04/29/2023. A determination letter was mailed to the clinic. Request a copy be faxed as well. Thank you, Tamara Mccullough [facility] Liaison - Cardiology Neurology [place] [id number] [email or web address] * Telephone Encounter - Tamara Mccullough - 04/23/2023 2:00 PM CDT Confirmed that the appeal was resent 04/16, but was closed because they thought it was a duplicate.I spoke with Gege in [facility] and she provided another fax number to resend the appeal request. [phone] also sent to [phone] Thank you, Tamara Mccullough [facility] Liaison - Cardiology Neurology [place] [phone] [email or web address] * Telephone Encounter - Tamara Mccullough - 04/16/2023 12:05 PM CDT Resubmitted appeal with update date, denial letter from 04/08, and OV from 09/2022. Thank you, Tamara Mccullough [facility] Liaison - Cardiology Neurology Multiple Sclerosis [address] [address] [email or web address] * Telephone Encounter - Tamara Mccullough - 04/16/2023 10:50 AM CDT Spoke with [facility] Appeals and the business office representative stated that since the appeal [...] the PA submission). Thank you, Tamara Mccullough [facility] Liaison - Cardiology Neurology [address] [address] [email or web address] * Telephone Encounter - Tamara Mccullough - 04/08/2023 12:43 PM CDT Medication Appeal Initiation Medication: AUBAGIO 14 MG PO TABS Appeal Start Date: 04/08/2023 Insurance Company: [facility] Insurance Insurance Comments: Faxed and email appeal letter to [facility] [place] Thank you, Tamara Mccullough [facility] Liaison - Cardiology Neurology Multiple Sclerosis [facility] [address] [place] [address] [email or web address] * Telephone Encounter - Tamara Mccullough - 04/08/2023 12:32 PM CDT Images from the original note were not included. PRIOR AUTHORIZATION DENIED Medication: AUBAGIO 14 MG PO TABS Insurance Company: [facility] - Denial Date: 04/06/2023 Denial Rational: Must try/fail 3 alternative products: Mavenclad, Avonex, Gilenya - Must fail one additional drug since patient has already tried REbif and Glatiramer Appeal Information: Patient Notified: Yes * Telephone Encounter - Celsonadine Tamara Iris - 04/06/2023 11:03 AM CDT Images from the original note were not included. PA Initiation Medication: AUBAGIO 14 MG PO TABS Insurance Company: [facility] - Pharmacy Filling the Rx: [facility] - [place], [place] - [address] Filling Pharmacy Phone: Filling Pharmacy Fax: Start Date: 04/06/2023 Thank you, Tamara Mccullough [facility] Liaison - Cardiology Neurology Multiple Sclerosis [address] [address] [email or web address] * Telephone Encounter - Erick Hickman MD [...] are: 1) To source this through the [facility] (cost as noted) 2) Switch to leflunomide (generic, not specifically approved for MS and may not be covered by insurance but should have very similar effects as Aubagio--it is converted in the body to the active ingredient in Aubagio). Insurance may not cover for this indication, would be about $25/month through [employer] with a [employer] coupon. Other alternatives would include switching to a different medication or a trial off of disease modifying therapy. If she wants to discuss the latter two options she should make an appointment to discuss further. documented in this encounter Plan of Treatment Upcoming Encounters Date Type Department Care Team (Late st Contact Info) Description 05/24/2024 10:00 AM WEATHER FORCASTER Virtual Visit [facility] [address] 3rd [place] [address] Boy Rousseau MD [address] [place] [address] [id number] [place] [address] 05/26/2024 9:30 AM WEATHER FORCASTER Office Visit [facility] [address] [address] Erick Hickman MD [address] [place] [address] documented as of this encounter Visit Diagnoses Not on filedocumented in this encounter Care Teams Bag Grader Relationship Specialty Start Date End Date Jacobo Campos MD [facility] [address] [place] [address] PCP - General Internal Medicine 09/08/13 Erick Hickman MD [address] [place] [address] Assigned Neuroscience Provider 04/27/20 Boy Rousseau MD [address] [place], [place] [address] [address] Assigned Surgical Provider 04/27/20 12/26/23 documented as of this encounter
--- OUTSIDE RECORDS SUMMARY | 2024-05-13 14:07 | XMS_ITS | Clinical Summary ---
Author Organization [facility] Address [address] [place] [address] Care Team Providers Care Wheel Alignment Mechanic Name Role Phone Jacobo Campos MD Primary Care Provider Erick Hickman MD Unavailable [phone] Allergies Active Allergy Reactions Criticality Noted Date [...] Department Care Team Description 05/02/2024 Documentation Only [facility] [address] [phone] Orion Fernando, MAXILLOFACIAL SURGEON 05/02/2024 Documentation Only [facility] [address] [address] Orion Fernando, [facility] 05/02/2024 Telephone [facility] Neurology [address] [phone] Boy Rousseau MD Clinicals (Needs clinicals for the [facility]) 04/05/2024 Refill [facility] Multiple Sclerosis [address] [address] Erick Hickman MD Medication Refill (Teriflunomide ) 02/19/2024 Documentation Only [facility] Neurology [address] [address] Boy Rousseau MD 02/18/2024 Telephone [facility] Neurosurgery [address] [address] Boy Rousseau MD 02/11/2024 Orders Only [facility] Neurology [address] [phone] Dian Gibbs RN MS (multiple sclerosis) (H) [...] on file Legal Sex Female 10:56 AM AUTOMOTIVE FUEL SYSTEMS CONVERTER Gender Identity Not on file Sexual Orientation Not on file Last Filed Vital Signs Vital Sign Reading Time Taken Comments Blood Pressure 130/83 10/08/2023 9:22 AM CDT Pulse 96 10/08/2023 9:22 AM CDT Temperature 36.6 ??C (97.8 ??F) 05/25/2020 8 :33 AM AUTOMOTIVE FUEL SYSTEMS CONVERTER Respiratory Rate 16 05/25/2020 12:3 2 PM AUTOMOTIVE FUEL SYSTEMS CONVERTER Oxygen Saturation 100% 10/08/2023 9: 22 AM CDT Inhaled Oxygen Concentration - - Weight 68.9 kg (151 lb 12.8 oz) 10/08/2023 9:22 AM CDT with out shoes Height 170.2 cm (5' 7) 08/16/2020 10:5 6 AM AUTOMOTIVE FUEL SYSTEMS CONVERTER Body Mass Index 23.78 08/16/2020 10:56 AM AUTOMOTIVE FUEL SYSTEMS CONVERTER Plan of Treatment Upcoming Encounters Date Type Department Care Team (Late st Contact Info) Description 05/24/2024 10:00 AM AUTOMOTIVE FUEL SYSTEMS CONVERTER Virtual Visit [facility] [address] [address] Boy Rousseau MD [address] [place] [address] [id number] [place] [address] 05/26/2024 9:30 AM AUTOMOTIVE FUEL SYSTEMS CONVERTER Office Visit [facility] [address] [phone] Erick Hickman MD [address] [facility] - [id number] [address] Health Maintenance Due Date Last Done Comments [...] this topic Medical Devices Implanted Type Area Fuel Efficient Automobile Designer Device Identifier Shelf Expiration Date Model / Serial / Lot Embolic Substance/Dev ice Web Sl 4x3-11/23/2019 Implanted:Qty : 1 on 11/23/2019 by Boy Rousseau MD Embolic Substance/D evice Right: Carotid MICROVENTION 02/18/2020 [id number] / / [id number] Stent Neuroform Beaver 3x21- 0 Implanted:Qty : 1 on 11/23/2019 by Boy Rousseau MD Stent Right: Carotid CHAYITO 11/17/2023 [id number] / / [id number] Procedures Procedure Name Priority Date/Time Associated Diagnosis Comments BASIC METABOLIC PANEL Routine 05/23/2020 8:48 AM AUTOMOTIVE FUEL SYSTEMS CONVERTER Intracranial aneurysm from Last 3 Months or Most Recently Relevant to Health Maintenance Results * Basic metabolic panel FUTURE anytime (05/23/2020 8:48 AM AUTOMOTIVE FUEL SYSTEMS CONVERTER) Sodium 141 133 - 144 mmol/L 05/23/2020 1:58 PM [facility] Potassium 3.6 3.4 - 5.3 mmol/L 05/23/2020 1:58 PM [facility] Chloride 105 94 - 109 mmol/L 05/23/2020 1:58 PM [facility] Carbon Dioxide 27 20 - 32 mmol/L 05/23/2020 2:26 PM [facility] Anion Gap 9 3 - 14 mmol/L 05/23/2020 2:26 PM [facility] Glucose 87 70 - 99 mg/dL 05/23/2020 2:26 PM [facility] Urea Nitrogen 14 7 - 30 mg/dL 05/23/2020 2:26 PM [facility] Creatinine 0.73 0.52 - 1.04 mg/dL 05/23/2020 2:26 PM [facility] GFR Estimate >90 >60 mL/min/{1 .73_m2} 05/23/2020 2:26 PM [facility] Comment: Non GFR Calc Starting 06/22/2018, serum creatinine based estimated GFR (eGFR) will be calculated using the Chronic Kidney Disease Epidemiology Collaboration (CKD-EPI) equation. GFR Estimate If Black >90 >60 mL/min/{1 .73_m2} 05/23/2020 2:26 PM AUTOMOTIVE FUEL SYSTEMS CONVERTER [facility] Comment: GFR Calc Starting 06/22/2018, serum creatinine based estimated GFR (eGFR) will be calculated using the Chronic Kidney Disease Epidemiology Collaboration (CKD-EPI) equation. Calcium 9.5 8.5 - 10.1 mg/dL 05/23/2020 2:26 PM AUTOMOTIVE FUEL SYSTEMS CONVERTER [facility] Blood specimen (specimen) 05/23/2020 8:48 AM AUTOMOTIVE FUEL SYSTEMS CONVERTER 05/23/2020 8:53 AM AUTOMOTIVE FUEL SYSTEMS CONVERTER us Lin Daily MD LAB - BLOOD ORDERABLES Final Res ult [facility] [address] [place] [address], [facility] [phone] [facility] [address], [place] [address] from Last 3 Months or Most Recently Relevant to Health Maintenance [place] [facility] Care Teams Wheel Alignment Mechanic Relationship Specialty Start Date End Date Jacobo Campos MD FORMERLY NAMED [facility] [address] [place] [address] PCP - General Internal Medicine 09/08/13 Erick Hickman MD [address] [place] [address] [id number], [place] [address] Assigned Neuroscience Provider 04/27/20
--- OUTSIDE RECORDS SUMMARY | 2024-05-13 14:07 | XMS_ITS | Encounter Summary ---
Author Organization [facility] Address [address] [place] [address] Care Team Providers Care Mine Safety Director Name Role Phone Jacobo Campos MD Primary Care Provider Erick Hickman MD Unavailable [phone] Boy Rousseau MD Unavailable [phone] Reason for Referral * Diagnostic Imaging MRI (Routine) - Pending Review Specialty Diagnoses / Procedures Referred By Monica longoria Referred To Contact Radiology. Diagnoses Nonruptured cerebral aneurysm Procedures MRA Brain ([place] [facility]) wo Contrast Erick Hickman MD [address] [place] [address] Phone: tel: fax: Referral ID Status Reason Start Date Expiration Date V isits Requested Visits Authorized [id number] Pending Review 11/05/2023 11/04/2024 1 1 Reason for Visit * Reason Onset Date Comments MRA Order 10/14/2023 [place] christiana arellano to request correction on MRA order Encounter Details Date Type Department Care Team ([facility] st Contact Info) Description 10/14/2023 Telephone [facility] Neurology Clinic [address] 3rd [place] [address] Erick Hickman MD [address] [place] [address] MRA Order ([place] called to request correction on MRA order [...] on file Legal Sex Female 10:56 AM WASTEWATER TREATMENT SUPERVISOR Gender Identity Not on file Sexual Orientation Not on file documented as of this encounter Miscellaneous Notes * Telephone Encounter - Racquel Whitt RN - 11/05/2023 3:47 PM CDT MRI (b and c) and MRA images are now available in PACS. Racquel Whitt RN * Telephone Encounter - Racquel Whitt RN - 11/05/2023 12:51 PM CDT Called [facility]. They confirmed that MRI brain and cervical spine were completed on 11/01.Both reports received. Requested images be pushed to [facility]. MRA was completed yesterday 11/03. Report not yet available, but will be faxed to us once finalized, and images pushed. Racquel Whitt RN * Telephone Encounter - Racquel Whitt RN - 10/14/2023 3:26 PM CDT Spoke with Denise at [facility]. Per their radiologist, only non- contrast MRA needed. Requesting new order for MRI w/o contrast. Routing request to Dr Hickman. Racquel Whitt RN * Telephone Encounter - Jason Mellisa - 10/14/2023 2:15 PM CDT [facility] Call Center Phone Message May a detailed message be left on voicemail: yes Reason for Call: Denise from [place] Imaging department called to request a correction on MRA order from , per Denise, protocol orders need only to say without contrast please re fax MRA order to: P# [phone] Action Taken: Message routed to: [facility] neurology Travel Screening: Not Applicable documented in this encounter Plan of Treatment Upcoming Encounters Date Type Department Care Team (Late st Contact Info) Description 05/24/2024 10:00 AM WASTEWATER TREATMENT SUPERVISOR Virtual Visit [facility] Neurosurgery [address] 3rd [place] [phone] Boy Rousseau MD [address] [place], [place] [address], [place] [address] 05/26/2024 9:30 AM WASTEWATER TREATMENT SUPERVISOR Office Visit [facility] Multiple Sclerosis [address] [phone] Erick Hickman MD [address] [place] [address] - [id number] [place], [place] [id number] Scheduled Orders Name Type Priority Associated Diagnoses Orde r Schedule MRA Brain ([place] [facility] [place]) wo Contrast Imaging Routine Nonruptured cerebral aneurysm Expected: 11/05/2023 (Approximate), Expires: 11/04/2024 documented as of this encounter Visit Diagnoses Diagnosis Nonruptured cerebral aneurysm- Primary Cerebral aneurysm, nonruptured documented in this encounter Care Teams Mine Safety Director Relationship Specialty Start Date End Date Jacobo Campos MD [facility] [address] [place] [address] PCP - General Internal Medicine 09/08/13 Erick Hickman MD [address] [place] [address] - [id number] [place] [address] Assigned Neuroscience Provider 04/27/20 Boy Rousseau MD [address] [place] [address] [id number] [place] [address] Assigned Surgical Provider 04/27/20 12/26/23 documented as of this encounter
--- OUTSIDE RECORDS SUMMARY | 2024-05-13 14:07 | XMS_ITS | Encounter Summary ---
Author Organization [facility] Address [address] [place] [address] Care Team Providers Care Historical Archeologist Name Role Phone Jacobo Campos MD Primary Care Provider Erick Hickman MD Unavailable [phone] Boy Rousseau MD Unavailable [phone] Encounter Details Date Type Department Care Team (Late Contact Info) Description 04/30/2023 MyC Medical Advice [facility] [address] [place] [address] 1st [place] [address] Tamara Mccullough Social History Tobacco [...] on file Legal Sex Female 10:56 AM HOME HEALTH PROVIDER Gender Identity Not on file Sexual Orientation Not on file documented as of this encounter Plan of Treatment Upcoming Encounters Date Type Department Care Team (Late Contact Info) Description 05/24/2024 10:00 AM HOME HEALTH PROVIDER Virtual Visit [facility] Neurosurgery Clinic [address]rd [place] [address] Boy Rousseau MD [address] [place] [address] 05/26/2024 9:30 AM HOME HEALTH PROVIDER Office Visit [facility] Multiple Sclerosis [address] [address] Erick Hickman MD [address] [place] [address] documented as of this encounter Visit Diagnoses Not on filedocumented in this encounter Care Teams Historical Archeologist Relationship Specialty Start Date End Date Jacobo Campos MD [facility] [address] [place] [address] PCP - General Internal Medicine 09/08/13 Erick Hickman MD [address] [place] [address] Assigned Neuroscience Provider 04/27/20 Boy Rousseau MD [address] [place] [address] Assigned Surgical Provider 04/27/20 12/26/23 documented as of this encounter
--- OUTSIDE RECORDS SUMMARY | 2024-05-13 14:07 | XMS_ITS | Encounter Summary ---
Author Organization [facility] Address [address] [place] [address] Care Team Providers Care Strap Folding Machine Operator Name Role Phone Jacobo Campos MD Primary Care Provider Guerita Holbrook RN Unavailable Erick Hickman MD Unavailable [phone] Boy Rousseau MD Unavailable [phone] Reason for Visit * Reason Onset Date Comments Call Back 11/28/2020 medical card for flight Encounter Details Date Type Department Care Team (Late st Contact Info) Description 11/28/[address] [facility] Neurology Clinic [address] 3rd [place] [address] Boy Rousseau MD [address] [place] [address] [id number] [place] [address] Call Back (medical card for flight ) Social History Tobacco Use Types Packs/Day Years Used Date Smoking Tobacco: Former Smokeless Tobacco: Never Alcohol Use Standard Drinks/Week Comments Yes 0 (1 standard drink = 0.6 oz pur e alcohol) occasional PHQ-2 Answer Date Recorded PHQ-2 Score 0 08/16/2020 Comments No Sex and Gender Information Value Date Recorded Sex Assigned at Not on file Legal Sex Female 10:56 AM SCIENCE TEACHER Gender Identity Not on file Sexual Orientation Not on file documented as of this encounter Patient Instructions * Patient Instructions* Dian Gibbs RN - 11/28/2020 11:36 AM CDT Regarding: Eliz Roth : 1970 CEREBRAL DEVICES IMPLANTED 11/23/2019: EMBOLIC SUBSTANCE/DEVICE WEB SL 4X3 STENT NEUROFORM ATLAS [id number] 11/23/2019 documented in this encounter Miscellaneous Notes [...] Joselyn Everett - 11/28/2020 11:36 AM CDT [facility] Call Center Phone Message May a [...] st Contact Info) Description 05/24/2024 10:00 AM SCIENCE TEACHER Virtual Visit [facility] Neurosurgery Clinic [address] 3rd [place] [address] Boy Rousseau MD [address] [place] [address] [id number] [place], [place] [address] 05/26/2024 9:30 AM SCIENCE TEACHER Office Visit [facility] Multiple Sclerosis [address] [address] Erick Hickman MD [address] [place], [place] [id number] [address] documented as of this encounter Visit Diagnoses Not on filedocumented in this encounter Care Teams Strap Folding Machine Operator Relationship Specialty Start Date End Date Jacobo Campos MD [facility] [address] [place] [address] PCP - General Internal Medicine 09/08/13 Guerita Holbrook, RN Specialty Manager Community Development Neurology 06/22/15 02/28/21 Erick Hickman MD [address] [place], [place] [id number] [address] Assigned Neuroscience Provider 04/27/20 Boy Rousseau MD [address] [place] [address] [id number] [place] [address] Assigned Surgical Provider 04/27/20 12/26/23 documented as of this encounter
--- OUTSIDE RECORDS SUMMARY | 2024-05-13 14:07 | XMS_ITS | Encounter Summary ---
Author Organization [facility] Address [address] [place] [address] Care Team Providers Care Oracle Endeca Consultant Name Role Phone Jacobo Campos MD Primary Care Provider Erick Hickman MD Unavailable [phone] Encounter Details Date Type Department Care Team (Late Contact Info) Description 02/19/2024 Documentation Only [facility] Neurology Clinic [address] [address] Boy Rousseau MD [address] [place] [address] [id number] [place] [address] Social History Tobacco Use Types [...] on file Legal Sex Female 10:56 AM TECTONOPHYSICIST Gender Identity Not on file Sexual Orientation Not on file documented as of this encounter Plan of Treatment Upcoming Encounters Date Type Department Care Team (Late Contact Info) Description 05/24/2024 10:00 AM TECTONOPHYSICIST Virtual Visit [facility] Neurosurgery Clinic [address] [address] Boy Rousseau MD [address] [place] [address] [id number] [place] [address] 05/26/2024 9:30 AM TECTONOPHYSICIST Office Visit [facility] Multiple Sclerosis [address] [phone] Erick Hickman MD [address] [place], [place] [address], [place] [address] documented as of this encounter Visit Diagnoses Not on filedocumented in this encounter Care Teams Oracle Endeca Consultant Relationship Specialty Start Date End Date Jacobo Campos MD [address] [address] PCP - General Internal Medicine 09/08/13 Erick Hickman MD [address] [place] [address] Assigned Neuroscience Provider 04/27/20 documented as of this encounter
--- OUTSIDE RECORDS SUMMARY | 2024-05-13 14:07 | XMS_ITS | Encounter Summary ---
Author Organization [facility] Address [address] [place] [address] Care Team Providers Care Tomahawk Weapon System Operator Name Role Phone Jacobo Campos MD Primary Care Provider Guerita Holbrook RN Unavailable Erick Hickman MD Unavailable [phone] Boy Rousseau MD Unavailable [phone] Reason for Visit * Reason Onset Date Comments letter and symptoms 01/26/2020 update worka bility letter and discuss symptoms. Encounter Details Date Type Department Care Team ([facility] st Contact Info) Description 01/26/2020 Telephone Health Neurosurgery [address] [facility] 3rd [place] [address] Boy oRusseau MD [address] [place] [address] [id number] [place] [address] letter and symptoms (update workability [...] on file Legal Sex Female 10:56 AM OCTAVE BOARD ASSEMBLER Gender Identity Not on file Sexual Orientation [...] Jenae Oquendo Taken Imaging disc received from [facility] and sent to [facility] to be uploaded into PACs. 01/25/20 - Cervical Spine WO * Telephone Encounter - Charley Horowitz RN - 01/27/2020 3:37 PM CDT Called [facility] and they will fax c-spine MRI report from 01/24. They are unable to push images to [facility] and won't send a disc without an [...] and discuss MRI. * Patient will contact [facility] to have imaging sent/pushed to PACS Patient verbalized understanding and agreed to this plan. Patient has my contact information and was encouraged to call with questions/concerns. Dian Gibbs RN 01/27/2020 9:29 AM * Telephone Encounter - Chastity Ma - 01/26/2020 8:01 AM CDT [facility] Call Center Phone Message May [...] work. Fax number to [employer] [facility]: [phone] Please call once request is complete and to discuss. Action Taken: Other: [facility] NEUROSURGER[facility] Travel Screening: Not Applicable documented in this encounter Plan of Treatment Upcoming Encounters Date Type Department Care Team (Late st Contact Info) Description 05/24/2024 10:00 AM OCTAVE BOARD ASSEMBLER Virtual Visit [facility] Neurosurgery Clinic [address] 3rd [place] [phone] Boy Rousseau MD [address] [place], [place] [id number] [place], [place] [address] 05/26/2024 9:30 AM OCTAVE BOARD ASSEMBLER Office Visit [facility] Multiple Sclerosis Clinic [address] [phone] Erick Hickman MD [address] [place] [address] [id number] [place], [place] 10[address] documented as of this encounter Visit Diagnoses Not on filedocumented in this encounter Care Teams Tomahawk Weapon System Operator Relationship Specialty Start Date End Date Jacobo Campos MD [facility] [address] [place] [address] PCP - General Internal Medicine 09/08/13 Guerita Holbrook, RN Specialty Hydroelectric Mechanic Neurology 06/22/15 02/28/21 Erick Hickman MD [address] [place] [address] - [id number], [place] [address] Assigned Neuroscience Provider 04/27/20 Boy Rousseau MD [address] [place] [address], [place] [address] Assigned Surgical Provider 04/27/20 12/26/23 documented as of this encounter
--- OUTSIDE RECORDS SUMMARY | 2024-05-13 14:07 | XMS_ITS | Encounter Summary ---
Author Organization [facility] Address [address] [place] [address] Care Team Providers Care Ingot Caster Name Role Phone Jacobo Campos MD Primary Care Provider Erick Hickman MD Unavailable [phone] Boy Rousseau MD Unavailable Reason for Visit * Reason Onset Date Comments Medication Compliance Issues 03/31/2023 Cov erage exception form Encounter Details Date Type Department Care Team (Late st Contact Info) Description 03/31/2023 [facility] Multiple Sclerosis Clinic [address] [address] Erick Hickman MD [address] [place] [address] - [id number] [place] [address] Medication Compliance Issues (Coverage exception [...] on file Legal Sex Female 10:56 AM INTERIOR ASSEMBLIES DEVELOPER PROVER Gender Identity Not on file Sexual Orientation Not on file documented as of this encounter Miscellaneous Notes * Telephone Encounter - Myesha Goodman - 03/31/2023 10:02 AM CDT [facility] Call Center Phone Message May a detailed message be left on voicemail: yes Reason for Call: Medication Question or concern regarding medication Prescription Clarification Name of Medication: teriflunomide (AUBAGIO) 14 MG tablet [[id number]] (Order [id number]) Prescribing Provider: Erick Hickman MD Pharmacy: NA What on the order needs clarification? Caller Stated the Pt would need a Coverage Exception letter in order to continue the process for the medication under the plan, the form can be filled out on [employer], the pts coverage ends April 05. Action Taken: Message routed to: [facility] Neurology Travel Screening: Not Applicable documented in this encounter Plan of Treatment Upcoming Encounters Date Type Department Care Team (Late st Contact Info) Description 05/24/2024 10:00 AM INTERIOR ASSEMBLIES DEVELOPER PROVER Virtual Visit [facility] Neurosurgery [address] 3rd [place] [phone] Boy Rousseau MD [address] [place], [place] [id number], [place] [address] 05/26/2024 9:30 AM INTERIOR ASSEMBLIES DEVELOPER PROVER Office Visit [facility] Multiple Sclerosis [address] [phone] Erick Hickman MD [address] [place] [address] [id number], [place] [address] documented as of this encounter Visit Diagnoses Not on filedocumented in this encounter Care Teams Ingot Caster Relationship Specialty Start Date End Date Jacobo Campos MD [address] [address] PCP - General Internal Medicine 09/08/13 Erick Hickman MD [address] [facility] SE - [id number] [place] [address] Assigned Neuroscience Provider 04/27/20 Boy Rousseau MD [address] [facility] [place] [id number] [place] [address] Assigned Surgical Provider 04/27/20 12/26/23 documented as of this encounter
--- OUTSIDE RECORDS SUMMARY | 2024-05-13 14:07 | XMS_ITS | Encounter Summary ---
Author Organization [place] Address [address] [place] [address] Care Team Providers Care Deck Engineer Name Role Phone Jacobo Campos MD Primary Care Provider Erick Hickman MD Unavailable Reason for Visit * Reason Comments Medication Refill Teriflunomide Encounter Details Date Type Department Care Team (Late st Contact Info) Description 04/05/2024 Refill [facility] Multiple Sclerosis Clinic [address] [address] Erick Hickman MD [address] [place] [address] - [id number] [place] [address] Medication Refill (Teriflunomide ) Social History Tobacco [...] on file Legal Sex Female 10:56 AM INSIDE SALES PERSON Gender Identity Not on file Sexual Orientation Not on file documented as of this encounter Miscellaneous Notes * Telephone Encounter - Racquel Whitt RN - 04/06/2024 8:20 AM CDT Received refill request for teriflunomide from [facility]; Patient was last seen in October 2023 and has follow up appointment in May [address] Hickman. Refilled per [place] refill protocol. Racquel Whitt, RN documented in this encounter Plan of Treatment Upcoming Encounters Date Type Department Care Team (Late st Contact Info) Description 05/24/2024 10:00 AM INSIDE SALES PERSON Virtual Visit [facility] Neurosurgery [address] 3rd [place] [phone] Boy Rousseau MD [address] [place], [place] [address] [address] 05/26/2024 9:30 AM INSIDE SALES PERSON Office Visit [facility] Multiple Sclerosis [address] [phone] Erick Hickman MD [address] [place] [address] documented as of this encounter Visit Diagnoses Diagnosis Multiple sclerosis (H) Multiple sclerosis documented in this encounter Care Teams Deck Engineer Relationship Specialty Start Date End Date Jacobo Campos MD [facility] [address] [place] [address] PCP - General Internal Medicine 09/08/13 Erick Hickman MD [address] [place] [address] Assigned Neuroscience Provider 04/27/20 documented as of this encounter
--- OUTSIDE RECORDS SUMMARY | 2024-05-13 14:07 | XMS_ITS | Encounter Summary ---
Author Organization [facility] Address [address] [place] [address] Care Team Providers Care Frontend Engineer Name Role Phone Jacobo Campos MD Primary Care Provider Guerita Holbrook RN Unavailable Erick Hickman MD Unavailable [phone] Boy Rousseau MD Unavailable [phone] Reason for Visit * Reason Onset Date Comments Call Back 01/25/2020 Encounter Details Date Type Department Care Team (Late st Contact Info) Description 01/25/2020 Telephone [facility] Multiple Sclerosis Clinic [address] [address] Erick Hickman MD [address] [place] [address] - [id number] [place] [address] Call Back Social History Tobacco [...] on file Legal Sex Female 10:56 AM SAND CLEANING MACHINE OPERATOR Gender Identity Not on file Sexual Orientation Not on file documented as of this encounter Miscellaneous Notes * Telephone Encounter - Pooja Aceves - 01/25/2020 8:54 AM CDT [facility] Call Center Phone Message May a detailed message be left on voicemail: yes Reason for Call: Other: Pt is at [facility], pt stateed she needs OK from [...] st Contact Info) Description 05/24/2024 10:00 AM SAND CLEANING MACHINE OPERATOR Virtual Visit [facility] Neurosurgery [address] [place] [address] 3rd [place] [phone] Boy Rousseau MD [address] [place], [place] [address] [address] 05/26/2024 9:30 AM SAND CLEANING MACHINE OPERATOR Office Visit [facility] Multiple Sclerosis [address] [phone] Erick Hickman MD [address] [place], [place] [address] [address] documented as of this encounter Visit Diagnoses Not on filedocumented in this encounter Care Teams Frontend Engineer Relationship Specialty Start Date End Date Jacobo Campos MD [facility] [address] [place] [address] PCP - General Internal Medicine 09/08/13 Guerita Holbrook, RN Specialty Certified Detention Deputy Neurology 06/22/15 02/28/21 Erick Hickman MD [address] [place], [place] [id number] [place] [address] Assigned Neuroscience Provider 04/27/20 Boy Rousseau MD [address] [facility] [id number] [place] [address] Assigned Surgical Provider 04/27/20 12/26/23 documented as of this encounter
--- OUTSIDE RECORDS SUMMARY | 2024-05-13 14:07 | XMS_ITS | Encounter Summary ---
Author Organization [facility] Address [address] [place] [address] Care Team Providers Care Fishing Tackle Repairer Name Role Phone Jacobo Campos MD Primary Care Provider Guerita Holbrook RN Unavailable Erick Hickman MD Unavailable [phone] Boy Rousseau MD Unavailable [phone] Reason for Visit * Reason Onset Date Comments Patient Request 2019 Encounter Details Date Type Department Care Team (Late st Contact Info) Description 2019 [facility] Multiple Sclerosis [address] [address] Erick Hickman MD [address] [place] [address] - [id number] [place] [address] Patient Request Social History Tobacco Use Types Packs/Day Years Used Date Smoking Tobacco: Former Smokeless Tobacco: Never PHQ-2 Answer Date Recorded PHQ-2 Score 0 07/14/2018 Comments No Sex and Gender Information Value Date Recorded Sex Assigned at Not on file Legal Sex Female 10:56 AM SLEEVE IRONER Gender Identity Not on file Sexual Orientation [...] a PA. She states it is a thirdburrp!y vendor that send out the authorization. It is suppose to come from her primary care provider and MD performing procedure. Patient just wants to ensure that procedure will be covered. Message sent to Financial Counseling to see if they are able to assist. * Telephone Encounter - Mcihelle Obrien - 2019 9:27 AM CDT [facility] Phone Message May a detailed [...] st Contact Info) Description 05/24/2024 10:00 AM SLEEVE IRONER Virtual Visit [facility] Neurosurgery Clinic [address] 3rd [place] [phone] Boy Rousseau MD [address] [place], [place] [address] [address] 05/26/2024 9:30 AM SLEEVE IRONER Office Visit [facility] Multiple Sclerosis Clinic [address] [phone] Erick Hickman MD [address] [place] [address] [id number], [place] [address] documented as of this encounter Visit Diagnoses Not on filedocumented in this encounter Care Teams Fishing Tackle Repairer Relationship Specialty Start Date End Date Jacobo Campos MD [facility] [address] [place] [address] PCP - General Internal Medicine 09/08/13 Guerita Holbrook, RN Specialty Piece Maker Neurology 06/22/15 02/28/21 Erick Hcikman MD [address] [facility] - [id number], [place] [address] Assigned Neuroscience Provider 04/27/20 Boy Rousseau MD [address] [place], [place] [address], [place] [address]65 Assigned Surgical Provider 04/27/20 12/26/23 documented as of this encounter
--- OUTSIDE RECORDS SUMMARY | 2024-05-13 14:07 | XMS_ITS | Encounter Summary ---
Author Organization [facility] Address [address] [place] [address] Care Team Providers Care Registered Dietician Name Role Phone Jacobo Campos MD Primary Care Provider Erick Hickman MD Unavailable [phone] Reason for Visit * Reason Onset Date Comments Clinicals 05/02/2024 Needs clinicals for the MRA Encounter Details Date Type Department Care Team (Late st Contact Info) Description 05/02/2024 Telephone [facility] Neurology Clinic [address] [place] [address] Boy Rousseau MD [address] [place], [place] [id number] [address] Clinicals (Needs clinicals for the MRA) Social History Tobacco Use Types Packs/Day Years [...] on file Legal Sex Female 10:56 AM TEMPERATURE LOGGING OPERATOR Gender Identity Not on file Sexual Orientation Not on file documented as of this encounter Miscellaneous Notes * Telephone Encounter - Alon Anjana - 05/02/2024 2:01 PM CDT [facility] Call Center Phone Message May a detailed message be left on voicemail: yes Reason for Call: Other: Brandon from [place] stated that she received another copy of the referral but for PA to be approved she needs notes supporting the need for a MRA from provider notes/visits. Please send supporting docs as soon as able, or call Brandon with questions. Fax is: [phone]. Action Taken: Other: [facility] Travel Screening: Not Applicable Date of Service: * Telephone Encounter - Mihaela Scott - 05/02/2024 1:43 PM CDT [facility] Call Center Phone Message May a detailed message be left on voicemail: yes Reason for Call: Other: Brandon from [facility] called and needs the clinicals for the MRA for the prior authorization. Please fax them to [phone] and if any questions you can call [phone]. Thank you. Action Taken: Message routed to: [facility] Neuro[facility] Travel Screening: Not Applicable Date of Service: documented in this encounter Plan of Treatment Upcoming Encounters Date Type Department Care Team (Late st Contact Info) Description 05/24/2024 10:00 AM TEMPERATURE LOGGING OPERATOR Virtual Visit [facility] Neurosurgery [address] 3rd [place] [address] Boy Rousseau MD [address] [place] [address] [id number], [place] [address] 05/26/2024 9:30 AM TEMPERATURE LOGGING OPERATOR Office Visit [facility] Multiple Sclerosis [address] [phone] Erick Hickman MD [address] [place] [address] - [id number] [address] documented as of this encounter Visit Diagnoses Not on filedocumented in this encounter Care Teams Registered Dietician Relationship Specialty Start Date End Date Jacobo Campos MD [facility] [address] [place] [address] PCP - General Internal Medicine 09/08/13 Erick Hickman MD 909 [facility] [id number], [place] [address] Assigned Neuroscience Provider 04/27/20 documented as of this encounter
--- OUTSIDE RECORDS SUMMARY | 2024-05-13 14:07 | XMS_ITS | Encounter Summary ---
Author Organization [facility] Address [address] [place] [address] Care Team Providers Care Iap Displays Analyst Name Role Phone Jacobo Campos MD Primary Care Provider Erick Hickman MD Unavailable [phone] Reason for Referral * Diagnostic Imaging MRI (Routine) - Pending Review Specialty Diagnoses / Procedures Referred By Contac t Referred To Contact Radiology. Diagnoses Nonruptured cerebral aneurysm Procedures MRA Brain ([place]) w/o Contrast Boy Rousseau MD [address] [place] [address] [id number], [place] [address] Phone: tel: fax: Referral ID Status Reason Start Date Expiration Date V isits Requested Visits Authorized [id number] Pending Review 02/11/2024 02/10/2025 1 1 Encounter Details Date Type Department Care Team (Late st Contact Info) Description 02/11/2024 Orders Only [facility] Neurology Clinic [address] 3rd [place] [address] Dian Gibbs RN MS (multiple [...] on file Legal Sex Female 10:56 AM SUSPENSION CORD TIER Gender Identity Not on file Sexual Orientation Not on file documented as of this encounter Plan of Treatment Upcoming Encounters Date Type Department Care Team (Late st Contact Info) Description 05/24/2024 10:00 AM SUSPENSION CORD TIER Virtual Visit [facility] Neurosurgery Clinic [address] 3rd [place] [phone] Boy Rousseau MD [address] [place], [place] [address], [place] [address] 05/26/2024 9:30 AM SUSPENSION CORD TIER Office Visit [facility] Multiple Sclerosis Clinic [address] [phone] Erick Hickman MD [address] [place], [place] [id number], [place] [address] Scheduled Orders Name Type Priority Associated Diagnoses Orde r Schedule MRA Brain ([place]) w/o Contrast Imaging Routine Nonruptured cerebral aneurysm Expected: 05/13/2024 (Approximate), Expires: 02/10/2025 documented as of this encounter Visit Diagnoses Diagnosis MS (multiple sclerosis) (H)- Primary Multiple sclerosis Nonruptured cerebral aneurysm Cerebral aneurysm, nonruptured documented in this encounter Care Teams Iap Displays Analyst Relationship Specialty Start Date End Date Jacobo Campos MD [facility] [address] [place] [address] PCP - General Internal Medicine 09/08/13 Erick Hickman MD [address] [place] [address] SE - [id number] [place] [address] Assigned Neuroscience Provider 04/27/20 documented as of this encounter
--- OUTSIDE RECORDS SUMMARY | 2024-05-13 14:07 | XMS_ITS | Encounter Summary ---
Author Organization [place] Address [address] [place] [address] Care Team Providers Care Sales Department Manager Name Role Phone Jacobo Campos MD Primary Care Provider Guerita Holbrook RN Unavailable Erick Hickman MD Unavailable [phone] Boy Rousseau MD Unavailable [phone] Reason for Visit * Reason Onset Date Comments Call Back 10/17/2020 Encounter Details Date Type Department Care Team (Late st Contact Info) Description 10/17/2020 Telephone [facility] Neurosurgery Clinic [address] [address] Boy Rousseau MD [address] [place] [address] [id number] [place] [address] Call Back Social History Tobacco [...] on file Legal Sex Female 10:56 AM CLASS A LINEMAN Gender Identity Not on file Sexual Orientation Not on file documented as of this encounter Miscellaneous Notes * Telephone Encounter - Alecia Magallon CMA - 10/18/2020 11:25 AM CDT Spoke to patient regarding message below. Patient understands and agrees. Patient asked to please fax imaging report to Dr. Gamez at fax# [phone] Campos at fax# [phone]. No other questions or concerns at this time. * Telephone Encounter - Dian Gibbs RN - 10/18/2020 11:06 AM CDT Ok for MRI. 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 See implant information for details. * Telephone Encounter - Olga Vargas - 10/17/2020 3:49 PM CDT [facility] Phone Message May a detailed message be left on voicemail: yes Reason for Call: Other: Patient calling looking to speak with care team of Dr. Rousseau - states that her provider in [place] is needing clarification/ confirmation if she is able to get MRI on spine and brain and neck area. States that she is having back and spine issues. Please advise and call patient back at your earliest convenience to discuss further Action Taken: Other: [facility] Travel Screening: Not Applicable documented in this encounter Plan of Treatment Upcoming Encounters Date Type Department Care Team (Late st Contact Info) Description 05/24/2024 10:00 AM CLASS A LINEMAN Virtual Visit [facility] Neurosurgery Clinic [address] 3rd [place] [address] Boy Rousseau MD [address] [place] [address] [id number] [place], [place] 4224[address] 05/26/2024 9:30 AM CLASS A LINEMAN Office Visit [facility] Multiple Sclerosis [address] [address] Erick Hickman MD [address] [place], [place] [address], [place] [address] documented as of this encounter Visit Diagnoses Not on filedocumented in this encounter Care Teams Sales Department Manager Relationship Specialty Start Date End Date Jacobo Campos MD [facility] [address] [place] [address] PCP - General Internal Medicine 09/08/13 Guerita Holbrook, RN Specialty Combination Technician Neurology 06/22/15 02/28/21 Erick Hickman MD [address] [place] [id number] [address] Assigned Neuroscience Provider 04/27/20 Boy Rousseau MD [address] [place], [place] [id number] [place] [address] Assigned Surgical Provider 04/27/20 12/26/23 documented as of this encounter
--- OUTSIDE RECORDS SUMMARY | 2024-05-13 14:07 | XMS_ITS | Encounter Summary ---
Author Organization [place] Address [address] [place] [address]. [place] [address] Care Team Providers Care Urgent Care Nurse Practitioner Name Role Phone Jacobo Campos MD Primary Care Provider Erick Hickman MD Unavailable [phone] Encounter Details Date Type Department Care Team (Late st Contact Info) Description 05/02/2024 Documentation Only [facility] Neurosurgery Clinic [address] 3rd [place] [address] Orion Fernando CMA Social History Tobacco Use Types Packs/Day Years [...] on file Legal Sex Female 10:56 AM SUPERVISOR PRECISION OPTICAL ELEMENTS Gender Identity Not on file Sexual Orientation Not on file documented as of this encounter Progress Notes * Orion Fernando CMA - 05/02/2024 1:55 PM CDT Mra referral and notes from 06-03-22 visit was faxed to [facility] [phone] Attn: AVIVA Sears neurosurgery documented in this encounter Plan of Treatment Upcoming Encounters Date Type Department Care Team (Late st Contact Info) Description 05/24/2024 10:00 AM SUPERVISOR PRECISION OPTICAL ELEMENTS Virtual Visit [facility] Neurosurgery [address] 3rd [place] [address] Boy Rousseau MD [address] [place], [place] [address]121[place], [place] [address] 05/26/2024 9:30 AM SUPERVISOR PRECISION OPTICAL ELEMENTS Office Visit [facility] Multiple Sclerosis [address] [phone] Erick Hickman MD [address] [place] [address] documented as of this encounter Visit Diagnoses Not on filedocumented in this encounter Care Teams Urgent Care Nurse Practitioner Relationship Specialty Start Date End Date Jacobo Campos MD [facility] [address] [place] [address] PCP - General Internal Medicine 09/08/13 Erick Hickman MD [address] [place] [address] Assigned Neuroscience Provider 04/27/20 documented as of this encounter
--- OUTSIDE RECORDS SUMMARY | 2024-05-13 14:07 | XMS_ITS | Encounter Summary ---
Author Organization [place] Address [address] [place] [address] Care Team Providers Care Joint Sealer Name Role Phone Jacobo Campos MD Primary Care Provider Guerita Holbrook RN Unavailable Erick Hickman MD Unavailable [phone] Boy Rousseau MD Unavailable [phone] Reason for Visit * Reason Onset Date Comments Call Back 10/17/2020 Encounter Details Date Type Department Care Team (Late st Contact Info) Description 10/17/[address] [facility] [address] [address] Erick Hickman MD [address] [place] [address] - [id number] [place] [address] Call Back Social History Tobacco [...] on file Legal Sex Female 10:56 AM DYER HELPER Gender Identity Not on file Sexual Orientation Not on file documented as of this encounter Miscellaneous Notes * Telephone Encounter - Michelle AguirreDIVINE - 10/18/2020 1:38 PM CDT Spoke with Eliz about her upcoming MRIs. Advised her that she would be contacted IF Dr. Mena had concerns. Confirmed with Dr. Hickman that Eliz is fine to proceed with MRIs of her back and neck. Michelle Aguirre RN * Telephone Encounter - Olga Vargas - 10/17/2020 3:53 PM CDT [facility] Phone Message May a detailed message be left on voicemail: yes Reason for Call: Other: Patient calling looking to speak with care team of Dr. Hickman - statesthat her provider in [place] is needing clarification/ confirmation if she is [...] st Contact Info) Description 05/24/2024 10:00 AM DYER HELPER Virtual Visit [facility] [address] 3rd [place] [phone] Boy Rousseau MD [address] [place], [place] [address], [place] [address] 05/26/2024 9:30 AM DYER HELPER Office Visit [facility] [address] [phone] Erick Hickman MD [address] [place] [address] - [id number] [place] [address] documented as of this encounter Visit Diagnoses Not on filedocumented in this encounter Care Teams Joint Sealer Relationship Specialty Start Date End Date Jacobo Campos MD [facility] [address] [place] [address] PCP - General Internal Medicine 09/08/13 Guerita Holbrook, RN Specialty Channel Marketing Coordinator Neurology 06/22/15 02/28/21 Erick Hickman MD [address] [facility] - [id number] [address] Assigned Neuroscience Provider 04/27/20 Boy Rousseau MD [address] [facility], [place] [address]55 Assigned Surgical Provider 04/27/20 12/26/23 documented as of this encounter
--- OUTSIDE RECORDS SUMMARY | 2024-05-13 14:07 | XMS_ITS | Encounter Summary ---
Author Organization [place] Address [address] [place] [address]. [place] [address] Care Team Providers Care Cell Tender Name Role Phone Jacobo Campos MD Primary Care Provider Erick Hickman MD Unavailable [phone] Encounter Details Date Type Department Care Team (Late st Contact Info) Description 05/02/2024 Documentation Only [facility] Neurosurgery [address] [phone] Orion Fernando CMA Social History Tobacco Use [...] on file Legal Sex Female 10:56 AM SKEIN BANDER Gender Identity Not on file Sexual Orientation Not on file documented as of this encounter Plan of Treatment Upcoming Encounters Date Type Department Care Team (Late Contact Info) Description 05/24/2024 10:00 AM SKEIN BANDER Virtual Visit [facility] Neurosurgery [address] [phone] Boy Rousseau MD [address] [place] [address] [id number] [place], [place] [id number] 05/26/2024 9:30 AM SKEIN BANDER Office Visit [facility] [address] [phone] Erick Hickman MD [address] [place] [address] documented as of this encounter Visit Diagnoses Not on filedocumented in this encounter Care Teams Cell Tender Relationship Specialty Start Date End Date Jacobo Campos MD [facility] [address] [place] [address] PCP - General Internal Medicine 09/08/13 Erick Hickman MD [address] [place] [address] Assigned Neuroscience Provider 04/27/20 documented as of this encounter
--- OUTSIDE RECORDS SUMMARY | 2024-05-13 14:07 | XMS_ITS | Encounter Summary ---
Author Organization [place] Address [address] [place] [address] Care Team Providers Care Ramp Supervisor Name Role Phone Jacobo Campos MD Primary Care Provider Erick Hickman MD Unavailable [phone] Boy Rousseau MD Unavailable Reason for Visit * Reason Onset Date Comments Call Back 04/22/2023 Aubagio appeal Encounter Details Date Type Department Care Team (Late st Contact Info) Description 04/22/[address] [facility] [place] [facility] S[facility] Clinic [address] [phone] Erick Hickman MD [address] [place] [address] - [id number] [place] [address] Call Back (Aubagio appeal ) [...] on file Legal Sex Female 10:56 AM MEDICAL BILLING CODER Gender Identity Not on file Sexual Orientation Not on file documented as of this encounter Miscellaneous Notes * Telephone Encounter - Chely Nunez - 04/23/2023 10:45 AM CDT [facility] Phone Message May a detailed message be left on voicemail: yes Reason for Call: Eliz calling to request a call back due to her insurance will no longer cover teriflunomide (AUBAGIO) 14 MG tablet. Eliz stated that [facility] stated that they did not receive theappeal on 04/16/23 for this medication and is requesting to resubmit the appeal to [facility]. Eliz is requesting a call to STARFACE at to explain the reason she is needing to take teriflunomide (AUBAGIO) 14 MG tablet. Please call Eliz to discuss at your earliest convenience. Action Taken: Message routed to: [facility] [place] Travel Screening: Not Applicable * Telephone Encounter - Suri Carr - 04/22/2023 12:45 PM CDT M [facility] Phone Message May a detailed message be left on voicemail: yes Reason for Call: Other: Pt is requesting a call back in regards to the appeal with [facility] for her Aubagio medication. Pt states [facility] hasn't received the appeal. Please call pt back with update at # [phone] Action Taken: Message routed to: [facility] Neurology Travel Screening: Not Applicable documented in this encounter Plan of Treatment Upcoming Encounters Date Type Department Care Team (Late st Contact Info) Description 05/24/2024 10:00 AM MEDICAL BILLING CODER Virtual Visit [facility] [address] 3rd [place] [phone] Boy Rousseau MD [address] [place] [address] [id number] [place] [address] 05/26/2024 9:30 AM MEDICAL BILLING CODER Office Visit [facility] Multiple Sclerosis [address] [phone] Erick Hickman MD [address] [place] [address] documented as of this encounter Visit Diagnoses Not on filedocumented in this encounter Care Teams Ramp Supervisor Relationship Specialty Start Date End Date Jacobo Campos MD [facility] [address] [place] [address] PCP - General Internal Medicine 09/08/13 Erick Hickman MD [address] [place] [address] Assigned Neuroscience Provider 04/27/20 Boy Rousseau MD [address] [place], [place] [id number] [address] Assigned Surgical Provider 04/27/20 12/26/23 documented as of this encounter
--- OUTSIDE RECORDS SUMMARY | 2024-05-13 14:07 | XMS_ITS | Encounter Summary ---
Author Organization [facility] Address [address] [place] [address] Care Team Providers Care Merchandising Director Name Role Phone Jacobo Campos MD Primary Care Provider Guerita Holbrook RN Unavailable Erick Hickman MD Unavailable [phone] Boy Rousseau MD Unavailable [phone] Encounter Details Date Type Department Care Team (Late st Contact Info) Description 08/15/2020 Telephone [facility] Multiple Sclerosis Clinic [address] [phone] Erick Hickman MD [address] [place] [address] - [id number] [place] [address] Social History Tobacco Use Types Packs/Day Years Used Date Smoking Tobacco: Former Smokeless Tobacco: Never Alcohol Use Standard Drinks/Week Comments Yes 0 (1 standard drink = 0.6 oz pur e alcohol) occasional PHQ-2 Answer Date Recorded PHQ-2 Score 0 08/16/2020 Comments No Sex and Gender Information Value Date Recorded Sex Assigned at Not on file Legal Sex Female 10:56 AM FARM SERVICE CONSULTANT Gender Identity Not on file Sexual Orientation Not on file COVID-19 Exposure Response Date Recorded In the last month, have you been in contact with someone who was confirmed or suspected to have Coronavirus / COVID-19? No / Unsure 08/16/2020 10:51 AM FARM SERVICE CONSULTANT documented as of this encounter Miscellaneous Notes * Telephone Encounter - Sherri Ramirez MA - 08/15/2020 2:40 PM CST Called and informed patient, no MRI or labs needed before appointment per last OV 08/2019 Sherri Ramirez MA SERVICE CONSULTANT * Telephone Encounter - Kodak Oneill - 08/15/2020 2:13 PM CST [facility] Phone Message May a detailed [...] Center ([facility]): Neuology Travel Screening: Not Applicable SERVICE CONSULTANT documented in this encounter Plan of Treatment Upcoming Encounters Date Type Department Care Team (Late st Contact Info) Description 05/24/2024 10:00 AM FARM SERVICE CONSULTANT Virtual Visit [facility]surgery [facility] [address] 3rd [place] [address] Boy Rousseau MD [address] [place], [place] [id number] [place], [place] 855025 05/26/2024 9:30 AM FARM SERVICE CONSULTANT Office Visit [facility] [address] [phone] Erick Hickman MD [address] [place] [address] - [id number] [place], [place] 523034 documented as of this encounter Visit Diagnoses Not on filedocumented in this encounter Care Teams Merchandising Director Relationship Specialty Start Date End Date Jacobo Campos MD [facility] [address] [place] [address] PCP - General Internal Medicine 09/08/13 Guerita Holbrook, DIVINE Specialty Regional Sales Representative Neurology 06/22/15 02/28/21 Erick Hickman MD [address] [place], [place] [address], [place] [address] Assigned Neuroscience Provider 04/27/20 Boy Rousseau MD [address] [place], [place] [address] [address] Assigned Surgical Provider 04/27/20 12/26/23 documented as of this encounter
--- OUTSIDE RECORDS SUMMARY | 2024-05-13 14:07 | XMS_ITS | Encounter Summary ---
Author Organization [place] Address [address] [place] [address] Care Team Providers Care Mine Exploration Engineer Name Role Phone Jacobo Campos MD Primary Care Provider Erick Hickman MD Unavailable [phone] Boy Rousseau MD Unavailable [phone] Reason for Visit * Reason Onset Date Comments Medication Request 04/30/2023 teriflunomide (AUBAGIO) 14 MG tablet Encounter Details Date Type Department Care Team (Late st Contact Info) Description 04/30/2023 Telephone [facility] [address] [phone] Erick Hickman MD [address] [place] [address] - [id number] [place] [address] Medication Request (teriflunomide (AUBAGIO) 14 MG tablet [...] on file Legal Sex Female 10:56 AM DIRECTOR [place]LE Gender Identity Not on file Sexual Orientation Not on file documented as of this encounter Miscellaneous Notes * Telephone Encounter - Ayala Violet - 04/30/2023 4:09 PM CDT [facility] Phone Message May a detailed message be left on voicemail: yes Reason for Call: Medication Question or concern regarding medication Prescription Clarification Name of Medication: teriflunomide (AUBAGIO) 14 MG tablet Prescribing Provider: Dr. Hickman Pharmacy: [facility] specialty pharmacy What on the order needs clarification? Mikki from the [facility] specialty pharmacy is requesting the [...] st Contact Info) Description 05/24/2024 10:00 AM DIRECTOR MOBILE Virtual Visit [facility] [address] 3rd [place] [phone] Boy Rousseau MD [address] [place], [place] [address]C2[address] [address] 05/26/2024 9:30 AM DIRECTOR MOBILE Office Visit [facility] Multiple Sclerosis [address] [phone] Erick Hickman MD [address] [place] [address] - [id number] [place] [address] documented as of this encounter Visit Diagnoses Diagnosis Multiple sclerosis (H) Multiple sclerosis documented in this encounter Care Teams Mine Exploration Engineer Relationship Specialty Start Date End Date Jacobo Campos MD [facility] [address] [place] [address] PCP - General Internal Medicine 09/08/13 Erick Hickman MD [address] [place] [address] - [id number] [address] Assigned Neuroscience Provider 04/27/20 Boy Rousseau MD [address] [place], [place] [address]C2121[place] [address] Assigned Surgical Provider 04/27/20 12/26/23 documented as of this encounter
--- OUTSIDE RECORDS SUMMARY | 2024-05-13 14:08 | XMS_ITS | Encounter Summary ---
Author Organization [place] Address [address] [place] [address] Care Team Providers Care Finish Machine Tender Name Role Phone Jacobo Campos MD Primary Care Provider Guerita Holbrook RN Unavailable Erick Hickman MD Unavailable [phone] Boy Rousseau MD Unavailable [phone] Reason for Visit * Reason Onset Date Comments Orders 07/12/2019 MRI head, Spine Encounter Details Date Type Department Care Team (Late st Contact Info) Description 07/12/2019 [facility] Sclerosis [facility] [address] [phone] Erick Hickman MD [address] [place] [address] - [id number] [place] [address] Orders (MRI head, Spine) Social History Tobacco Use Types Packs/Day Years Used Date Smoking Tobacco: Former Smokeless Tobacco: Never PHQ-2 Answer Date Recorded PHQ-2 Score 0 07/14/2018 Comments No Sex and Gender Information Value Date Recorded Sex Assigned at Not on file Legal Sex Female 10:56 AM PIE CHEF Gender Identity Not on file Sexual Orientation Not on file documented as of this encounter Miscellaneous Notes * Telephone Encounter - Charley Horowitz RN - 07/12/2019 10:58 AM CST Orders faxed. Patient made aware of this. CHEF * Telephone Encounter - Charley Horowitz RN - 07/12/2019 10:37 AM CST Patient is scheduled to see Dr. Hickman 08/18; per the last office note, MD would like MRI of brain and c-spine. Orders placed on behalf of . Once orders co-signed, will fax to [facility] (fax [phone]). CHEF * Telephone Encounter - Carlos Godwin - 07/12/2019 10:26 AM PIE CHEF [facility] Phone Message May a detailed message be left on voicemail: yes Reason for Call: Order(s): Other: Reason for requested: MRI brain, spine Date needed: as soon as possible Provider name: Marylou Please send order to [place], [place] Action Taken: Message routed to: [facility] neuro CHEF documented in this encounter Plan of Treatment Upcoming Encounters Date Type Department Care Team (Late st Contact Info) Description 05/24/2024 10:00 AM PIE CHEF Virtual Visit [facility] Neurosurgery Clinic [address] 3rd [place] [address] Boy Rousseau MD [address] [place] [address] [id number], [place] [address] 05/26/2024 9:30 AM PIE CHEF Office Visit [facility] Multiple Sclerosis Clinic [address] [phone] Erick Hickman MD [address] [place] [address] - [id number] [place], [place] 892714 documented as of this encounter Visit Diagnoses Diagnosis Multiple sclerosis (H)- Primary Multiple sclerosis documented in this encounter Care Teams Finish Machine Tender Relationship Specialty Start Date End Date Jacobo Campos MD [address] [address] PCP - General Internal Medicine 09/08/13 Guerita Holbrook, DIVINE Specialty Ceramics Instructor Neurology 06/22/15 02/28/21 Erick Hickman MD [address] [place], [place] [address], [place] [address] Assigned Neuroscience Provider 04/27/20 Boy Rousseau MD [address] [place], [place] [address] [address] Assigned Surgical Provider 04/27/20 12/26/23 documented as of this encounter
--- OUTSIDE RECORDS SUMMARY | 2024-05-13 14:08 | XMS_ITS | Encounter Summary ---
Author Organization [facility] Address [address] [place] [address] Care Team Providers Care Music Leader Name Role Phone Jacobo Campos MD Primary Care Provider Guerita Holbrook RN Unavailable Erick Hickman MD Unavailable [phone] Boy Rousseau MD Unavailable [phone] Reason for Visit * Reason Onset Date Comments Refill Request 05/18/2019 AUBAGIO 14 MG ta blet Encounter Details Date Type Department Care Team (Late st Contact Info) Description 05/18/2019 [facility] S[facility] [address] [phone] Erick Hickman MD [address] [place] [address] - [id number] [place] [address] Refill Request (AUBAGIO 14 MG tablet) Social History Tobacco Use Types Packs/Day Years Used Date Smoking Tobacco: Former Smokeless Tobacco: Never PHQ-2 Answer Date Recorded PHQ-2 Score 0 07/14/2018 Comments No Sex and Gender Information Value Date Recorded Sex Assigned at Not on file Legal Sex Female 10:56 AM ART DIRECTOR Gender Identity Not on file Sexual Orientation [...] this. No further needs at this time. DIRECTOR * Telephone Encounter - Christopher De Anda - 05/18/2019 1:57 PM CST M [facility] Phone Message May a detailed message be left on voicemail: no Reason for Call: Medication Refill Request Has the patient contacted the pharmacy for the refill? Yes Name of medication being requested: AUBAGIO 14 MG tablet Provider who prescribed the medication: Dr. Hickman Pharmacy: [facility] Specialty Date medication is needed: [...] routed to: [facility] NEUR[facility] ADULT [facility] DIRECTOR documented in this encounter Plan of Treatment Upcoming Encounters Date Type Department Care Team (Late st Contact Info) Description 05/24/2024 10:00 AM ART DIRECTOR Virtual Visit [facility] Neurosurgery Clinic [address] 3rd [place] [address] Boy Rousseau MD [address] [place] [address] [id number] [place], [place] [id number] 05/26/2024 9:30 AM ART DIRECTOR Office Visit [facility] Multiple Sclerosis [address] [phone] Erick Hickman MD [address] [place] [address] - [id number] [place] [address] documented as of this encounter Visit Diagnoses Diagnosis Multiple sclerosis (H) Multiple sclerosis documented in this encounter Care Teams Music Leader Relationship Specialty Start Date End Date Jacobo Campos MD [facility] [address] [place] [address] PCP - General Internal Medicine 09/08/13 Guerita Holbrook, RN Specialty Organizational Effectiveness Director Neurology 06/22/15 02/28/21 Erick Hickman MD [address] [place] [address] - [id number] [place] [address] Assigned Neuroscience Provider 04/27/20 Boy Rousseau MD [address] [place], [place] [address] [address] Assigned Surgical Provider 04/27/20 12/26/23 documented as of this encounter
--- OUTSIDE RECORDS SUMMARY | 2024-05-13 14:08 | XMS_ITS | Encounter Summary ---
Author Organization [place] Address [address] [place] [address] Care Team Providers Care Integrity Assessor Name Role Phone Jacobo Campos MD Primary Care Provider Guerita Holbrook RN Unavailable Erick Hickman MD Unavailable [phone] Boy Rousseau MD Unavailable [phone] Encounter Details Date Type Department Care Team (Late st Contact Info) Description 08/19/2012 Office Visit-[facility] Shoaib Garduno MD XXX [place] LICENSE INACTIVE OF DECEMBER 2023 XXX Social History Tobacco Use Types Packs/Day Years Used Date Smoking Tobacco: Never Assessed Comments Unknown Sex and Gender Information Value Date Recorded Sex Assigned at Not on file Legal Sex Female 10:56 AM ICT PROJECT MANAGER Gender Identity Not on file Sexual Orientation Not on file documented as of this encounter Progress Notes * Shoaib Garduno - 08/19/2012 1:15 PM CST Marketing Automation Manager: Shoaib Garduno Status: Final - Signature Encounter: 2012-08-19 13:15:00.000 Type: Neurology Letter [facility] [address] [facility] [address] [place] [address] August 19, 2012 Jacobo Campos M.D. [address] [address] RE: Eliz Hartman : 1970 DHRUV: 08/19/2012 [...] she is going on a vacation to [place] soon. Current medications are Rebif, vitamin D, [...] Strength is normal. Sensory examination is intact. Pzvslv-[id number]-tfoi is done well. Her gait is normal, [...] aware of this while she is in [place]. She will continue to see me at least every six months. Sincerely, Shoaib Garduno MD Department of Neurology [facility]:11 Electronically signed by:Shoaib Garduno M.D. Aug 19 2012 4:30PM ICT PROJECT MANAGER PROJECT MANAGER PROJECT MANAGER documented in this encounter Plan of Treatment Upcoming Encounters Date Type Department Care Team (Late st Contact Info) Description 05/24/2024 10:00 AM ICT PROJECT MANAGER Virtual Visit [facility] Neurosurgery [address] 3rd [place] [phone] Boy Rousseau MD [address] [place] [address] 05/26/2024 9:30 AM ICT PROJECT MANAGER Office Visit [facility] Multiple Sclerosis [address] [phone] Erick Hickman MD [address] [place] [address] documented as of this encounter Visit Diagnoses Not on filedocumented in this encounter Care Teams Integrity Assessor Relationship Specialty Start Date End Date Jacobo Campos MD [facility] [address] [place] [address] PCP - General Internal Medicine 09/08/13 Guerita Holbrook, RN Specialty Service Vehicle Operator Neurology 06/22/15 02/28/21 Erick Hickman MD [address] [place] [address] Assigned Neuroscience Provider 04/27/20 Boy Rousseau MD [address] [place] [address] Assigned Surgical Provider 04/27/20 12/26/23 documented as of this encounter
--- OUTSIDE RECORDS SUMMARY | 2024-05-13 14:08 | XMS_ITS | Clinical Summary ---
Author Organization [facility] Address [place], [place] [address] Care Team Providers Care Application Support Manager Name Role Phone Jacobo Campos MD [...] MUSCLE SPASM 24 Tablet 1 08/07/2023 Active teriflunomide (AUBAGIO) 14 mg tablet Take 1 tablet (14 mg) by mouth daily 90 Tablet 3 04/06/2024 Active gabapentin (NEURONTIN) 300 mg capsuleIndications :Lumbar radiculopathy TAKE 1 CAPSULE(300 MG) BY MOUTH THREE TIMES DAILY 270 Capsule 05/10/2024 Active gabapentin (NEURONTIN) 300 mg capsuleIndications :Lumbar radiculopathy TAKE 1 CAPSULE(300 MG) BY MOUTH THREE TIMES DAILY 270 Capsule 02/08/2024 Discontinued Active Problems Problem Noted Date Diagnosed Date Acetabular labrum tear, left, sequela 09/24/2023 Piriformis syndrome of left side 09/24/2023 Greater trochanteric bursitis of left hip 2023 Lumbar and sacral osteoarthritis 09/24/2023 Neurogenic bladder 02/18/2016 Recurrent UTI 02/18/2016 Multiple sclerosis 10/12/2010 COUGH 02/25/2000 Encounters Date Type Department Care Team Description 05/08/2024 Refill [facility] [address] [place] [address] Oneal Gamez MD Refill Request (Gabapentin) 03/31/2024 3:00 PM CDT Office Visit [facility] [address] [place] [address] Oneal Gamez MD [facility] (Follow up work comp back, left hip/groin and leg date of injury:06/08/23) 03/31/2024 Travel from Last 3 Months Immunizations Name [...] T Respiratory Rate 16 09/02/2016 9:30 AM ICU CLERK Oxygen Saturation 98% 03/31/2024 3:06 PM CDT Inhaled Oxygen Concentration - - Weight 75.4 kg (166 lb 3.2 oz) 08/06/2023 1:51 P M ICU CLERK Height 170 cm (5' 6.93) 08/04/2016 9:28 AM ICU CLERK Body Mass Index 26.09 08/04/2016 9:28 AM ICU CLERK Plan of Treatment Health Maintenance Due Date [...] (1 of 2) 2022 COVID-19 vaccine series ( season) 2024 Influenza for age 50-64 03/06/2024 Pneumococcal series for age 6-64 Aged Out No longer eligible b ased on patient's age to complete this topic Procedures Procedure Name Priority Date/Time Associated Diagnosis Comments JEWELRY POLISHER THIN PREP PAP SCREEN IMAGED Routine 05/21/2007 4:49 PM ICU CLERK Screening Malignant Neoplasms Cervix from Last 3 Months or Most Recently Relevant to Health Maintenance Results * JEWELRY POLISHER THIN PREP PAP SCREEN IMAGED (05/21/2007 4:49 PM ICU CLERK) CYTOLOGY ??CYTOPATHOLOGY REPORT ??[facility] ?? Status: Final Report ? [id number] ?? CLINICAL INFORMATION ?LMP ? : 05/02/07 ?Previous Pap Date ? : 2004 ?Previous PAP Dx ? : Negative for intraepithelial lesion or ?malignancy. ?Previous [place]/bx date : None ?Previous Colposcopy/Bx: None ?Hormone Usage ? : None ?Menstrual Status ?: Regular Periods ?Appearance of Cervix ??: NORMAL ?[place]/Bx done today ?: No ?HPV Request ? [...] 05/21/07 ?? ACCESSIONED: 05/21/07 ?? SIGNED: 06/07/07 [facility] Cervical (Cervical) 05/21/2007 4:49 PM ICU CLERK 05/21/2007 4:45 PM ICU CLERK Janeth Barrett NP PATHOLOGY/CYTOLOGY [facility] [place]NAL ZIP [address] [place] [address] from Last 3 Months or Most Recently Relevant to Health Maintenance Care Teams Application Support Manager Relationship Specialty Start Date End Date Jacobo Campos MD [address] [place], [place] [id number] PCP - General Internal Medicine 10/25/21
--- OUTSIDE RECORDS SUMMARY | 2024-05-13 14:08 | XMS_ITS | Encounter Summary ---
Author Organization [facility] Address [address] [place] [address] Care Team Providers Care Balance Wheel Motion Inspector Name Role Phone Jacobo Campos MD Primary Care Provider Guerita Holbrook RN Unavailable Erick Hickman MD Unavailable [phone] Boy Rousseau MD Unavailable [phone] Reason for Visit * Reason Onset Date Comments Prior Auth - Medication 06/23/2019 teriflun omide (AUBAGIO) 14 MG tablet Call Back 06/23/2019 Encounter Details Date Type Department Care Team (Late st Contact Info) Description 06/23/2019 Telephone [facility] [address] [phone] Erick Hickman MD [address] [place] [address] - [id number] [place] [address] Prior Auth - Medication (teriflunomide (AUBAGIO) 14 MG tablet); Call Back Social History Tobacco Use Types Packs/Day Years Used Date Smoking Tobacco: Former Smokeless Tobacco: Never PHQ-2 Answer Date Recorded PHQ-2 Score 0 07/14/2018 Comments No Sex and Gender Information Value Date Recorded Sex Assigned at Not on file Legal Sex Female 10:56 AM NETWORK ANALYST Gender Identity Not on file Sexual Orientation Not on file documented as of this encounter Miscellaneous Notes * Telephone Encounter - Charley Horowitz RN - 07/07/2019 1:20 PM CST Aubagio Rx sent to [facility]. ORK ANALYST * Telephone Encounter - Tamara Mccullough - 07/07/2019 1:01 PM CST Images from the original note were not included. I spoke with the patient and she can now fill with [facility]. I've already added her insurance through [facility] [place] and obtained her copay card and added both to their system. A new RX for Aubagio will need to be sent to [facility] to initiate their new patient process. PDM Copay Card: [facility] [place] insurance: Thank you, Tamara Mccullough [facility] [address]rd [place] [address] [email or web address] ORK ANALYST * Telephone Encounter - Charley Horowitz RN - 07/07/2019 11:48 AM CST Tamara, please see below. Patient states she changed insurance. Can you investigate what pharmacy sheshould use? ORK ANALYST * Telephone Encounter - Carlos Godwin - 07/07/2019 9:50 AM NETWORK ANALYST [facility] Call Center Phone Message May a detailed message be left on voicemail: yes Reason for Call: Other: Rahul calling to request a call back. She states she switched insurance to [employer] and pharmacies to [facility]. She would like to know if she's able to get her Aubagio. ([employer] , Phone# [phone]) Please call her back to discuss. Action Taken: Message routed to: [facility] neuro ORK ANALYST * Telephone Encounter - Joy Guevara - 06/24/2019 9:33 AM CST Images from the original note were not included. Prior Authorization Approval Authorization Effective Date: 06/24/2019 Authorization Expiration Date: 06/24/2020 Medication: teriflunomide (AUBAGIO) 14 MG tablet Approved Dose/Quantity: 30 Reference #: [id number] Insurance Company: [employer] [phone] Which Pharmacy is filling the prescription (Not needed for infusion/clinic administered): [facility] [place] [address] [employer] Renewal- no interruption in therapy - previous PA was good until 07/08/2019 ORK ANALYST * Telephone Encounter - Joy Guevara - 06/23/2019 3:11 PM CST PA Initiation Medication: teriflunomide (AUBAGIO) 14 MG tablet Insurance Company: [employer] [phone] Pharmacy Filling the Rx: [facility] [place] [address] [employer] Filling Pharmacy Phone: Filling Pharmacy Fax: Start Date: 06/23/2019 Central Prior Authorization Team Filled out form and faxed it to [facility] [employer] fax# [phone] ORK ANALYST * Telephone Encounter - Felicia Morin - 06/23/2019 10:20 AM CST Images from the original note were not included. ORK ANALYST documented in this encounter Plan of Treatment Upcoming Encounters Date Type Department Care Team (Late st Contact Info) Description 05/24/2024 10:00 AM NETWORK ANALYST Virtual Visit [address]rd [place] [address] Boy Rousseau MD [address] [place] [address] 05/26/2024 9:30 AM NETWORK ANALYST Office Visit [facility] [address] [phone] Erick Hickman MD [address] [place] [address] documented as of this encounter Visit Diagnoses Diagnosis Multiple sclerosis (H)- Primary Multiple sclerosis documented in this encounter Care Teams Balance Wheel Motion Inspector Relationship Specialty Start Date End Date Jacobo Campos MD [facility] [address] [place] [address] PCP - General Internal Medicine 09/08/13 Guerita Holbrook, RN Specialty Principal Ios Developer Neurology 06/22/15 02/28/21 Erick Hickman MD [address] [place] [address] Assigned Neuroscience Provider 04/27/20 Boy Rousseau MD [address] [place] [address] Assigned Surgical Provider 04/27/20 12/26/23 documented as of this encounter
--- NOTE | 2024-05-13 14:45 | CRLHL7_ITS ---
For Patients: As a result of the Century Cures Act, medical imaging exams and procedure reports are released immediately into your electronic medical record. You may view this report before your referring provider. If you have questions, please contact your health care provider. INDICATION: Brain aneurysm follow-up. TECHNIQUE: 3D TOF MRA. Comparison: 04/03/2021. 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 There are no new aneurysms. The rest of the intracranial vasculature is unremarkable. 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 Dictated by Jorden Esposito MD @ 05/14/2024 11:00:01 AM (Electronically Signed)
== END 2024-05-13 14:05 | disposition home or self-care (01) ==
LOC: MRI 14:05
PROVIDERS: PCP Internal Medicine; Visit Provider Radiology Diagnostic Radiology
DX: I67.1 Cerebral aneurysm, nonruptured (principal); I66.3 Occlusion and stenosis of cerebellar arteries
CPT/HCPCS: 70544

== ENCOUNTER 2024-06-08 08:32 | Day surgery (SDC) | payer OTHER, SELFPAY ==
[2024-06-08] VITALS (15 sets, daily range): BP systolic 111–140; BP diastolic 74–94; PULSE 75–97; RESP 16; TEMP 36.1–36.5; O2SAT 93–98; BMI 25.1
[2024-06-08] MEDS: EPINEPHrine 1 MG in SODIUM CHLORIDE IRRIG SOLUTION 3,000 ML 9003 MG IRRIGATION ×6 (08:15→13:40)
--- OUTSIDE RECORDS SUMMARY | 2024-06-08 08:35 | XMS_ITS | Encounter Summary ---
Author Organization [facility] Address [address] [place] [address] Care Team Providers Care Rubber Goods Repairer Name Role Phone Jacobo Campos MD Primary Care Provider Erick Hickman MD Unavailable [phone] Boy Rousseau MD Unavailable [phone] Reason for Referral * Diagnostic Imaging MRI (Routine) - Pending Review Specialty Diagnoses / Procedures Referred By Monica longoria Referred To Contact Radiology. Diagnoses Nonruptured cerebral aneurysm Procedures MRA Brain ([place]) wo Contrast Erick Hickman MD [address] [place] [address] Phone: tel: fax: Referral ID Status Reason Start Date Expiration Date V isits Requested Visits Authorized [id number] Pending Review 11/05/2023 11/04/2024 1 1 Reason for Visit * Reason Onset Date Comments MRA Order 10/14/2023 [place] [facility] christiana arellano to request correction on MRA order Encounter Details Date Type Department Care Team ([facility] st Contact Info) Description 10/14/2023 Telephone [facility]rology [facility] [address] 3rd [place] [address] Erick Hickman MD [address] [place] [address] MRA Order ([place] called to request correction on MRA order [...] on file Legal Sex Female 10:56 AM RAND BUTTER Gender Identity Not on file Sexual Orientation Not on file documented as of this encounter Miscellaneous Notes * Telephone Encounter - Racquel Whitt RN - 11/05/2023 3:47 PM CDT MRI (b and c) and MRA images are now available in PACS. Racquel Whitt RN * Telephone Encounter - Racquel Whitt RN - 11/05/2023 12:51 PM CDT Called [facility]. They confirmed that MRI brain and cervical spine were completed on 11/01.Both reports received. Requested images be pushed to [facility]. MRA was completed yesterday 11/03. Report not yet available, but will be faxed to us once finalized, and images pushed. Racquel Whitt RN * Telephone Encounter - Racquel Whitt RN - 10/14/2023 3:26 PM CDT Spoke with Denise at [facility]. Per their radiologist, only non- contrast MRA needed. Requesting new order for MRI w/o contrast. Routing request to Dr Hickman. Racquel Whitt RN * Telephone Encounter - Mellisa Gomez - 10/14/2023 2:15 PM CDT [facility] Call Center Phone Message May a detailed message be left on voicemail: yes Reason for Call: Denise from [facility] Imaging department called to request a correction on MRA order from , per Denise, protocol orders need only to say without contrast please re fax MRA order to: P# [phone] Action Taken: Message routed to: [facility] neurology Travel Screening: Not Applicable documented in this encounter Plan of Treatment Upcoming Encounters Date Type Department Care Team (Late st Contact Info) Description 06/21/2024 10:00 AM RAND BUTTER Virtual Visit [facility] Neurosurgery [facility] [address] 3rd [place] [phone] Boy Rousseau MD [address] [place], [place] [address], [place] [address] Scheduled Orders Name Type Priority Associated Diagnoses Orde r Schedule MRA Brain ([place]) wo Contrast Imaging Routine Nonruptured cerebral aneurysm Expected: 11/05/2023 (Approximate), Expires: 11/04/2024 documented as of this encounter Visit Diagnoses Diagnosis Nonruptured cerebral aneurysm- Primary Cerebral aneurysm, nonruptured documented in this encounter Care Teams Rubber Goods Repairer Relationship Specialty Start Date End Date Jacobo Campos MD [facility] [address] [place] [address] PCP - General Internal Medicine 09/08/13 Erick Hickman MD [address] [place] [address] [id number] [place] [address] Assigned Neuroscience Provider 04/27/20 Boy Rousseau MD [address] [id number], [place] [address] Assigned Surgical Provider 04/27/20 12/26/23 documented as of this encounter
--- OUTSIDE RECORDS SUMMARY | 2024-06-08 08:35 | XMS_ITS | Encounter Summary ---
Author Organization [facility] Address [address] [place] [address] Care Team Providers Care Marketing Information Manager Name Role Phone Jacobo Campos MD Primary Care Provider Erick Hickman MD Unavailable [phone] Boy Rousseau MD Unavailable [phone] Reason for Visit * Reason Onset Date Comments Medication Question 04/10/2023 [place] oral medi cation Encounter Details Date Type Department Care Team (Late st Contact Info) Description 04/10/2023 [facility] [address] [address] Erick Hickman MD [address] [place] [address] - [id number] [address] Medication Question (MS oral medication [...] on file Legal Sex Female 10:56 AM SOFTWARE CONSULTANT Gender Identity Not on file Sexual Orientation Not on file documented as of this encounter Miscellaneous Notes * Telephone Encounter - Violet Cai - 04/10/2023 9:39 AM CDT [facility] Call Center Phone Message May [...] discuss. Please call patient and advise at [phone]. Action Taken: Message routed to: [facility] [place] Neurology Travel Screening: Not Applicable documented in this encounter Plan of Treatment Upcoming Encounters Date Type Department Care Team (Late st Contact Info) Description 06/21/2024 10:00 AM SOFTWARE CONSULTANT Virtual Visit [facility] Neurosurgery Clinic [address] [place] [address] Boy Rousseau MD [address] [place], [place] [address], [place] [address] documented as of this encounter Visit Diagnoses Not on filedocumented in this encounter Care Teams Marketing Information Manager Relationship Specialty Start Date End Date Jacobo Campos MD [facility] [address] [place] [address] PCP - General Internal Medicine 09/08/13 Erick Hickman MD [address] [place], [place] [address], [place] [address] Assigned Neuroscience Provider 04/27/20 Boy Rousseau MD [address] [place], [place] [id number] [place] [address] Assigned Surgical Provider 04/27/20 12/26/23 documented as of this encounter
--- OUTSIDE RECORDS SUMMARY | 2024-06-08 08:35 | XMS_ITS | Encounter Summary ---
Author Organization [facility] Address [address] [place] [address] Care Team Providers Care Sugar House Supervisor Name Role Phone Jacobo Campos MD Primary Care Provider Erick Hickman MD Unavailable [phone] Boy Rousseau MD Unavailable [phone] Encounter Details Date Type Department Care Team (Late Contact Info) Description 04/30/2023 [facility] Medical Advice [facility] [address] [place] [address] 1st [place] [address] Tamara Mccullough Social History Tobacco [...] on file Legal Sex Female 10:56 AM TECHNOLOGY SUPPORT ANALYST Gender Identity Not on file Sexual Orientation Not on file documented as of this encounter Plan of Treatment Upcoming Encounters Date Type Department Care Team (Late Contact Info) Description 06/21/2024 10:00 AM TECHNOLOGY SUPPORT ANALYST Virtual Visit [facility] Neurosurgery Clinic [address] 3rd [place] [address] Boy Rousseau MD [address] [place] [address] [id number] [address] documented as of this encounter Visit Diagnoses Not on filedocumented in this encounter Care Teams Sugar House Supervisor Relationship Specialty Start Date End Date Jacobo Campos MD [facility] [address] [place] [address] PCP - General Internal Medicine 09/08/13 Erick Hickman MD [address] [facility] [id number] [address] Assigned Neuroscience Provider 04/27/20 Boy Rousseau MD [address] [place], [place] [address], [place] [address] Assigned Surgical Provider 04/27/20 12/26/23 documented as of this encounter
--- OUTSIDE RECORDS SUMMARY | 2024-06-08 08:35 | XMS_ITS | Encounter Summary ---
Author Organization [facility] Address [address] [place] [address] Care Team Providers Care Dairy Hand Name Role Phone Jacobo Campos MD Primary Care Provider Erick Hickman MD Unavailable [phone] Reason for Visit * Reason Onset Date Comments Clinicals 05/02/2024 Needs clinicals for the MRA Encounter Details Date Type Department Care Team (Late st Contact Info) Description 05/02/2024 Telephone [facility] [address] [place] [address] Boy Rousseau MD [address] [place], [place] [address] [address] Clinicals (Needs clinicals for the [...] file Legal Sex Female 10:56 AM OFFICE EXECUTIVE Gender Identity Not on file Sexual Orientation Not on file documented as of this encounter Miscellaneous Notes * Telephone Encounter - Alon Anjana - 05/02/2024 2:01 PM CDT [facility] Call Center Phone Message May a detailed message be left on voicemail: yes Reason for Call: Other: Brandon from [facility] stated that she received another copy of the referral but for PA to be approved she needs notes supporting the need for a MRA from provider notes/visits. Please send supporting docs as soon as able, or call Brandon with questions. Fax is: [phone]. Action Taken: Other: [facility] Travel Screening: Not Applicable Date of Service: * Telephone Encounter - Mihaela Scott - 05/02/2024 1:43 PM CDT [facility] Call Center Phone Message May a detailed message be left on voicemail: yes Reason for Call: Other: Brandon from [facility] called and needs the clinicals for the MRA for the prior authorization. Please fax them to [phone] and if any questions you can call [phone]. Thank you. Action Taken: Message routed to: [facility] Travel Screening: Not Applicable Date of Service: documented in this encounter Plan of Treatment Upcoming Encounters Date Type Department Care Team (Late st Contact Info) Description 06/21/2024 10:00 AM OFFICE EXECUTIVE Virtual Visit [facility] Neurosurgery Clinic [address] 3rd [place] [address] Boy Rousseau MD [address] [place] [address] [id number] [place] [address] documented as of this encounter Visit Diagnoses Not on filedocumented in this encounter Care Teams Dairy Hand Relationship Specialty Start Date End Date Jacobo Campos MD [facility] [address] [place] [address] PCP - General Internal Medicine 09/08/13 Erick Hickman MD [facility] [id number] [address] Assigned Neuroscience Provider 04/27/20 documented as of this encounter
--- OUTSIDE RECORDS SUMMARY | 2024-06-08 08:35 | XMS_ITS | Encounter Summary ---
Author Organization [facility] Address [address] [place] [address] Care Team Providers Care Rubber Trimmer Name Role Phone Jacobo Campos MD Primary Care Provider Erick Hickman MD Unavailable [phone] Reason for Visit * Reason Comments Medication Refill Teriflunomide Encounter Details Date Type Department Care Team (Late st Contact Info) Description 04/05/2024 Refill [facility] [address] [address] Erick Hickman MD [address] [place] [address] - [id number] [place] [address] Medication Refill (Teriflunomide ) Social History Tobacco [...] on file Legal Sex Female 10:56 AM LAP REGULATOR Gender Identity Not on file Sexual Orientation Not on file documented as of this encounter Miscellaneous Notes * Telephone Encounter - Racquel Whitt RN - 04/06/2024 8:20 AM CDT Received refill request for teriflunomide from [facility]; Patient was last seen in October 2023 and has follow up appointment in May [address] Hickman. Refilled per [place] refill protocol. Racquel Whitt, RN documented in this encounter Plan of Treatment Upcoming Encounters Date Type Department Care Team (Late st Contact Info) Description 06/21/2024 10:00 AM LAP REGULATOR Virtual Visit [facility] Neurosurgery [address] 3rd [place] [phone] Boy Rousseau MD [address] [place], [place] [address] [address] documented as of this encounter Visit Diagnoses Diagnosis Multiple sclerosis (H) Multiple sclerosis documented in this encounter Care Teams Rubber Trimmer Relationship Specialty Start Date End Date Jacobo Campos MD [facility] [address] [place] [address] PCP - General Internal Medicine 09/08/13 Erick Hickman MD [address] [place] [address] [id number] [place] [address] Assigned Neuroscience Provider 04/27/20 documented as of this encounter
--- OUTSIDE RECORDS SUMMARY | 2024-06-08 08:35 | XMS_ITS | Encounter Summary ---
Author Organization [facility] Address [address] [place] [address] Care Team Providers Care Advertising Assistant Manager Name Role Phone Jacobo Campos MD Primary Care Provider Erick Hickman MD Unavailable [phone] Boy Rousseau MD Unavailable [phone] Reason for Visit * Reason Onset Date Comments Prior Auth - Medication 03/09/2023 Aubagio (brand) 14MG Tablets (APPEAL DENIED) Encounter Details Date Type Department Care Team (Late st Contact Info) Description 03/09/2023 [facility] Medical Advice [facility] Multiple Sclerosis Clinic [address] [phone] Erick Hickman MD [address] [place] [address] - [id number] [place] [address] Prior Auth - Medication (Aubagio [...] file Legal Sex Female 10:56 AM SUPERVISOR MICROFILM DUPLICATING UNIT Gender Identity Not on file Sexual Orientation Not on file documented as of this encounter Miscellaneous Notes * Telephone Encounter - Tamara Mccullough - 05/11/2023 8:02 AM CST Images from the original note were not included. Aubagio appeal denial letter: [facility] MICROFILM DUPLICATING UNIT * Telephone Encounter - Tamara Mccullough - 05/01/2023 10:43 AM CDT MEDICATION APPEAL DENIED Medication: AUBAGIO 14 MG PO TABS Insurance Company: [employer] Denial Date: 04/29/2023 Denial Rational: Must try/fail at least 2 preferred products: Teriflunomide, Gilenya, Mavenclad Second Level Appeal Information: N/A Patient Notified: Yes [place] Prior Authorization Team ONLY: Second level appeals will be managed by the clinic staff andprovider. Please contact the [facility] Prior Authorization Team if additional information about the denial is needed. Spoke with insurance and confirmed the appeal was denied on 04/29/2023. A determination letter was mailed to the clinic. Request a copy be faxed as well. Thank you, Tamara Mccullough [facility] Liaison - Cardiology Neurology [place] [id number] [email or web address] * Telephone Encounter - Tamara Mccullough - 04/23/2023 2:00 PM CDT Confirmed that the appeal was resent 04/16, but was closed because they thought it was a duplicate.I spoke with Gege in [facility] and she provided another fax number to resend the appeal request. [phone] also sent to [phone] Thank you, Tamara Mccullough [facility] Liaison - Cardiology Neurology [place] [id number] [email or web address] * Telephone Encounter - Tamara Mccullough - 04/16/2023 12:05 PM CDT Resubmitted appeal with update date, denial letter from 04/08, and OV from 09/2022. Thank you, Tamara Mccullough [facility] Liaison - Cardiology Neurology Multiple Sclerosis [address] [address] [email or web address] * Telephone Encounter - Tamara Mccullough - 04/16/2023 10:50 AM CDT Spoke with [facility] Appeals and the contracts representative stated that since the appeal letter [...] the PA submission). Thank you, Tamara Mccullough [facility] Liaison - Cardiology Neurology [address] [address] [email or web address] * Telephone Encounter - Tamara Mccullough - 04/08/2023 12:43 PM CDT Medication Appeal Initiation Medication: AUBAGIO 14 MG PO TABS Appeal Start Date: 04/08/2023 Insurance Company: [facility] Insurance Insurance Comments: Faxed and email appeal letter to [facility] [place] Thank you, Tamara Mccullough [facility] Liaison - Cardiology Neurology Multiple Sclerosis [facility] [address] [place] [address] [email or web address] Telephone Encounter - [...] Medical Center - Pharmacy Filling the Rx: [facility] - [place], [place] - [address] Filling Pharmacy Phone: Filling Pharmacy Fax: Start Date: 04/06/2023 Thank you, Tamara Mccullough [facility] Liaison - Cardiology Neurology Multiple Sclerosis [address] [address] [email or web address] * Telephone Encounter - Erick Hickman MD [...] are: 1) To source this through the [facility] (cost as noted) 2) Switch to leflunomide (generic, not specifically approved for MS and may not be covered by insurance but should have very similar effects as Aubagio--it is converted in the body to the active ingredient in Aubagio). Insurance may not cover for this indication, would be about $25/month through [employer] with a [employer] coupon. Other alternatives would include switching to a different medication or a trial off of disease modifying therapy. If she wants to discuss the latter two options she should make an appointment to discuss further. documented in this encounter Plan of Treatment Upcoming Encounters Date Type Department Care Team (Late st Contact Info) Description 06/21/2024 10:00 AM SUPERVISOR MICROFILM DUPLICATING UNIT Virtual Visit [facility] Neurosurgery Clinic [address] 3rd [place] [address] Boy Rousseau MD [address] [place] [address] [id number] [place], [place] 7[address]85 documented as of this encounter Visit Diagnoses Not on filedocumented in this encounter Care Teams Advertising Assistant Manager Relationship Specialty Start Date End Date Jacobo Campos MD [facility]NOTE 3[facility] [address] [place] [address] PCP - General Internal Medicine 09/08/13 Erick Hickman MD [address] [place] [address] - [id number] [address] Assigned Neuroscience Provider 04/27/20 Boy Rousseau MD [address] [place], [place] [address] [address] Assigned Surgical Provider 04/27/20 12/26/23 documented as of this encounter
--- OUTSIDE RECORDS SUMMARY | 2024-06-08 08:35 | XMS_ITS | Encounter Summary ---
Author Organization [facility] Address [address] [place] [address] Care Team Providers Care Mounting Machine Operator Name Role Phone Jacobo Campos MD Primary Care Provider Guerita Holbrook RN Unavailable Erick Hickman MD Unavailable [phone] Boy Rousseau MD Unavailable [phone] Reason for Visit * Reason Onset Date Comments letter and symptoms 01/26/2020 update worka bility letter and discuss symptoms. Encounter Details Date Type Department Care Team ([facility] st Contact Info) Description 01/26/2020 Telephone Health Neurosurgery [address] [facility] 3rd [place] [address] Boy Rousseau MD [address] [place] [address] [id number] [place] [address] letter and symptoms (update workability [...] on file Legal Sex Female 10:56 AM ELECTRIC FAN ASSEMBLER Gender Identity Not on file Sexual [...] Jenae Oquendo Taken Imaging disc received from [facility] and sent to [facility] to be uploaded into PACs. 01/25/20 - Cervical Spine WO * Telephone Encounter - Charley Horowitz RN - 01/27/2020 3:37 PM CDT Called [facility] and they will fax c-spine MRI report from 01/24. They are unable to push images to [facility] and won't send a disc without an updated JED. I called the patient and she will call [facility] and have them release images. Report [...] primary care provider, Dr. Jacobo Campos at [facility]. Dr. Campos reportedly stated that patient [...] and discuss MRI. * Patient will contact [facility] to have imaging sent/pushed to PACS Patient verbalized understanding and agreed to this plan. Patient has my contact information and was encouraged to call with questions/concerns. Dian Gibbs RN 01/27/2020 9:29 AM * Telephone Encounter - Chastity Ma - 01/26/2020 8:01 AM CDT [facility] Call Center Phone Message May [...] at work. Fax number to [facility] [employer] [facility]: [phone] Please call once request is complete and to discuss. Action Taken: Other: [facility] Travel Screening: Not Applicable documented in this encounter Plan of Treatment Upcoming Encounters Date Type Department Care Team (Late st Contact Info) Description 06/21/2024 10:00 AM ELECTRIC FAN ASSEMBLER Virtual Visit [facility] Neurosurgery Clinic [address] [phone] Boy Rousseau MD [address] [place] [address] [id number] [place] [address] documented as of this encounter Visit Diagnoses Not on filedocumented in this encounter Care Teams Mounting Machine Operator Relationship Specialty Start Date End Date Jacobo Campos MD [facility] [address] [place] [address] PCP - General Internal Medicine 09/08/13 Guerita Holbrook, RN Specialty Legal Advisor Neurology 06/22/15 02/28/21 Erick Hickman MD [address] [place], [place] [id number] [place] [address] Assigned Neuroscience Provider 04/27/20 Boy Rousseau MD [address] [facility] [id number] [place] [address] Assigned Surgical Provider 04/27/20 12/26/23 documented as of this encounter
--- OUTSIDE RECORDS SUMMARY | 2024-06-08 08:35 | XMS_ITS | Encounter Summary ---
Author Organization [place] [facility] Address [address] [place] [address] Care Team Providers Care Credit Operations Specialist Name Role Phone Jacobo Campos MD Primary Care Provider Erick Hickman MD Unavailable [phone] Boy Rousseau MD Unavailable Reason for Visit * Reason Onset Date Comments Call Back 04/22/2023 Aubagio appeal Encounter Details Date Type Department Care Team (Late st Contact Info) Description 04/22/2023 [facility] Multiple Sclerosis [facility] [address] [address] Erick Hickman MD [address] [place] [address] - [id number] [place] [address] Call Back (Aubagio appeal ) [...] on file Legal Sex Female 10:56 AM STATISTICS MANAGER Gender Identity Not on file Sexual Orientation Not on file documented as of this encounter Miscellaneous Notes * Telephone Encounter - Chely Nunez - 04/23/2023 10:45 AM CDT [facility] Call Center Phone Message May a detailed message be left on voicemail: yes Reason for Call: Eliz calling to request a call back due to her insurance will no longer cover teriflunomide (AUBAGIO) 14 MG tablet. Eliz stated that [facility] stated that they did not receive theappeal on 04/16/23 for this medication and is requesting to resubmit the appeal to [facility]. Eliz is requesting a call to [employer] at to explain the reason she is needing to take teriflunomide (AUBAGIO) 14 MG tablet. Please call Eliz to discuss at your earliest convenience. Action Taken: Message routed to: [facility] ([facility]): MS Travel Screening: Not Applicable * Telephone Encounter - Suri Carr - 04/22/2023 12:45 PM CDT M [facility] Call Center Phone Message May a detailed message be left on voicemail: yes Reason for Call: Other: Pt is requesting a call back in regards to the appeal with [facility] for her Aubagio medication. Pt states [facility] hasn't received the appeal. Please call pt back with update at # [phone] Action Taken: Message routed to: [facility] ([facility]): Neurology Travel Screening: Not Applicable documented in this encounter Plan of Treatment Upcoming Encounters Date Type Department Care Team (Late st Contact Info) Description 06/21/2024 10:00 AM STATISTICS MANAGER Virtual Visit [facility] Neurosurgery Clinic [address] 3rd [place] [phone] Boy Rousseau MD [address] [place] [address] [id number] [place] [address] documented as of this encounter Visit Diagnoses Not on filedocumented in this encounter Care Teams Credit Operations Specialist Relationship Specialty Start Date End Date Jacobo Campos MD [facility] [address] [place] [address] PCP - General Internal Medicine 09/08/13 Erick Hickman MD [address] [place] [address] - [id number] [address] Assigned Neuroscience Provider 04/27/20 Boy Rousseau MD [address] [place], [place] [address] [address] Assigned Surgical Provider 04/27/20 12/26/23 documented as of this encounter
--- OUTSIDE RECORDS SUMMARY | 2024-06-08 08:35 | XMS_ITS | Referral Summary ---
Author Organization [facility] Address [address] [place] [address] Care Team Providers Care Paperboard Box Maker Name Role Phone Jacobo Campos MD Primary Care Provider Erick Hickman MD Unavailable Encounters Date Type Department Care Team Description 05/26/2024 Documentation Only [facility] Multiple Sclerosis [address] [phone] Sole Morocho MD Orders (Labs at [facility] ) 05/26/2024 Travel 05/26/2024 9:[address] MECHANICAL ENGINEER Office Visit [facility] Multiple Sclerosis [address] [phone] Erick Hickman MD MS (multiple sclerosis) (H) (Primary Dx) 05/17/2024 Telephone [facility] Neurosurgery [address] [phone] Boy Rousseau MD 05/02/2024 Documentation Only [facility] Neurosurgery [address] [phone] Orion Fernando CMA 05/02/2024 Documentation Only [facility] Neurosurgery [address] [phone] Orion Fernando CMA 05/02/2024 Telephone [facility] Neurology Clinic [place] [address] [facility] 3rd [place] [phone] Boy Rousseau MD Clinicals (Needs clinicals for the [facility]) 04/05/2024 Refill [facility] Multiple Sclerosis Clinic [place] [address] [place] [phone] Erick Hickman MD Medication Refill (Teriflunomide ) from Last 3 Months Allergies Active Allergy [...] PHQ-2 Answer Date Recorded PHQ-2 Score 0 05/26/2024 Adolescent Education Answer Date Record ed Getting School Help Needed Not on file 03/27 Comments No Sex and Gender Information Value Date Recorded Sex Assigned at Not on file Legal Sex Female 10:[address] MECHANICAL ENGINEER Gender Identity Not on file Sexual Orientation Not on file Last Filed Vital Signs Vital Sign Reading Time Taken Comments Blood Pressure 142/92 05/26/2024 9:[address] MECHANICAL ENGINEER Pulse 73 05/26/2024 9:[address] MECHANICAL ENGINEER Temperature 36.6 C (97.8 F) 05/25/2020 8:[address] MECHANICAL ENGINEER Respiratory Rate 16 05/25/2020 12:[address] MECHANICAL ENGINEER Oxygen Saturation 100% 05/26/2024 9:[address] MECHANICAL ENGINEER Inhaled Oxygen Concentration - - Weight 73.2 kg (161 lb 4.8 oz) 05/26/2024 9:[address] MECHANICAL ENGINEER with out shoes Height 169.5 cm (5' 6.73) 05/26/2024 9 [address] MECHANICAL ENGINEER with out shoes Body Mass Index 25.47 05/26/2024 9:[address] MECHANICAL ENGINEER Plan of Treatment Upcoming Encounters Date Type Department Care Team (Late st Contact Info) Description 06/21/2024 10:[address] MECHANICAL ENGINEER Virtual Visit [facility] Neurosurgery Clinic [address] 3rd [place] [address] Boy Rousseau MD [address] [place] [address] [id number] [place] [address] Medical Devices Implanted Type Area Director Underwriter Sales Device Identifier Shelf Expiration Date Model / Serial / Lot Embolic Substance/Dev ice Web Sl 4x3-11/23/2019 Implanted:Qty : 1 on 11/23/2019 by Boy Rousseau MD Embolic Substance/D evice Right: Carotid MICROVENTION 02/18/2020 [id number] / / [id number] Stent [address] 3x21- 0 Implanted:Qty : 1 on 11/23/2019 by Boy Rousseau MD Stent Right: Carotid CHAYITO 11/17/2023 [id number] / / [id number] Procedures Procedure Name Priority Date/Time Associated Diagnosis Comments BASIC METABOLIC PANEL Routine 05/23/2020 8:[address] MECHANICAL ENGINEER Intracranial aneurysm from Last 3 Months or Most Recently Relevant to Health Maintenance Results * Basic metabolic panel FUTURE anytime (05/23/2020 8:[address] MECHANICAL ENGINEER) Sodium 141 133 - 144 mmol/L 05/23/2020 1:58 PM [facility] Potassium 3.6 3.4 - 5.3 mmol/L 05/23/2020 1:58 PM [facility] Chloride 105 94 - 109 mmol/L 05/23/2020 1:58 PM [facility] Carbon Dioxide 27 20 - 32 mmol/L 05/23/2020 2:26 PM [facility] Anion Gap 9 3 - 14 mmol/L 05/23/2020 2:26 PM [facility] Glucose 87 70 - 99 mg/dL 05/23/2020 2:26 PM [facility] Urea Nitrogen 14 7 - 30 mg/dL 05/23/2020 2:26 PM [facility] Creatinine 0.73 0.52 - 1.04 mg/dL 05/23/2020 2:26 PM [facility] GFR Estimate >90 >60 mL/min/{1 .73_m2} 05/23/2020 2:26 PM [facility] Comment: Non GFR Calc Starting 06/22/2018, serum creatinine based estimated GFR (eGFR) will be calculated using the Chronic Kidney Disease Epidemiology Collaboration (CKD-EPI) equation. GFR Estimate If Black >90 >60 mL/min/{1 .73_m2} 05/23/2020 2:[address] MECHANICAL ENGINEER [facility] Comment: GFR Calc Starting 06/22/2018, serum creatinine based estimated GFR (eGFR) will be calculated using the Chronic Kidney Disease Epidemiology Collaboration (CKD-EPI) equation. Calcium 9.5 8.5 - 10.1 mg/dL 05/23/2020 2:[address] MECHANICAL ENGINEER [facility] Blood specimen (specimen) 05/23/2020 8:[address] MECHANICAL ENGINEER 05/23/2020 8:[address] MECHANICAL ENGINEER us Lin Daily MD LAB - BLOOD ORDERABLES Final Res ult [facility] [address] [place] [address], [facility] [phone] [facility] [address] [place] [address] from Last 3 Months or Most Recently Relevant to Health Maintenance [place] [facility] Care Teams Paperboard Box Maker Relationship Specialty Start Date End Date Jacobo Campos MD [facility] [address] [place] [address] PCP - General Internal Medicine 09/08/13 Erick Hickman MD [address] [place] [address] [id number], [place] [address] Assigned Neuroscience Provider 04/27/20
--- OUTSIDE RECORDS SUMMARY | 2024-06-08 08:35 | XMS_ITS | Encounter Summary ---
Author Organization [facility] Address [address] [place] [address] Care Team Providers Care Appliance Adjuster Name Role Phone Jacobo Campos MD Primary Care Provider Guerita Holbrook RN Unavailable Erick Hickman MD Unavailable [phone] Boy Rousseau MD Unavailable [phone] Encounter Details Date Type Department Care Team (Late st Contact Info) Description 08/15/2020 Telephone [facility] Multiple Sclerosis Clinic [address] [phone] Erick Hickman MD [address] [place] [address] - [id number] [place] [address] Social History Tobacco Use Types Packs/Day Years Used Date Smoking Tobacco: Former Smokeless Tobacco: Never Alcohol Use Standard Drinks/Week Comments Yes 0 (1 standard drink = 0.6 oz pur e alcohol) occasional PHQ-2 Answer Date Recorded PHQ-2 Score 0 08/16/2020 Comments No Sex and Gender Information Value Date Recorded Sex Assigned at Not on file Legal Sex Female 10:56 AM MAINTENANCE REPRESENTATIVE Gender Identity Not on file Sexual Orientation Not on file COVID-19 Exposure Response Date Recorded In the last month, have you been in contact with someone who was confirmed or suspected to have Coronavirus / COVID-19? No / Unsure 08/16/2020 10:51 AM MAINTENANCE REPRESENTATIVE documented as of this encounter Miscellaneous Notes * Telephone Encounter - Sherri Ramirez MA - 08/15/2020 2:40 PM CST Called and informed patient, no MRI or labs needed before appointment per last OV 08/2019 Sherri Ramirez MA TENANCE REPRESENTATIVE * Telephone Encounter - [employer]ak Oneill - 08/15/2020 2:13 PM CST [facility] Call Center Phone Message May a detailed [...] Center ([facility]): Neuology Travel Screening: Not Applicable TENANCE REPRESENTATIVE documented in this encounter Plan of Treatment Upcoming Encounters Date Type Department Care Team (Late st Contact Info) Description 06/21/2024 10:00 AM MAINTENANCE REPRESENTATIVE Virtual Visit [facility] Neurosurgery Clinic [address] 3rd [place] [address] Boy Rousseau MD [address] [place] [address] [id number] [place] [address] documented as of this encounter Visit Diagnoses Not on filedocumented in this encounter Care Teams Appliance Adjuster Relationship Specialty Start Date End Date Jacobo Campso MD [address] [address] PCP - General Internal Medicine 09/08/13 Guerita Holbrook, RN Specialty Small Brake Form Operator Neurology 06/22/15 02/28/21 Erick Hickman MD 9 [facility] - [id number], [place] [address] Assigned Neuroscience Provider 04/27/20 Boy Rousseau MD [address] [facility] [id number], [place] [address]2425 Assigned Surgical Provider 04/27/20 12/26/23 documented as of this encounter
--- OUTSIDE RECORDS SUMMARY | 2024-06-08 08:35 | XMS_ITS | Encounter Summary ---
Author Organization [facility] Address [address] [place] [address] Care Team Providers Care Gum Maker Name Role Phone Jacobo Campos MD Primary Care Provider Guerita Holbrook RN Unavailable Erick Hickman MD Unavailable [phone] Boy Rousseau MD Unavailable [phone] Reason for Visit * Reason Onset Date Comments Call Back 01/25/2020 Encounter Details Date Type Department Care Team (Late st Contact Info) Description 01/25/2020 Telephone [facility] Multiple Sclerosis Clinic [address] [phone] Erick Hickman MD [address] [place] [address] - [id number] [place] [address] Call Back Social History Tobacco [...] on file Legal Sex Female 10:56 AM GRAIN MILL PRODUCTS INSPECTOR Gender Identity Not on file Sexual Orientation Not on file documented as of this encounter Miscellaneous Notes * Telephone Encounter - Pooja Aceves - 01/25/2020 8:54 AM CDT [facility] Call Center Phone Message May a detailed message be left on voicemail: yes Reason for Call: Other: Pt is at [facility], pt stateed she needs OK from [...] st Contact Info) Description 06/21/2024 10:00 AM GRAIN MILL PRODUCTS INSPECTOR Virtual Visit [facility] Neurosurgery Clinic [address] 3rd [place] [address] Boy Rousseau MD [address] [place] [place] [address] documented as of this encounter Visit Diagnoses Not on filedocumented in this encounter Care Teams Gum Maker Relationship Specialty Start Date End Date Jacobo Campos MD [facility] 2] [address] [place] [address] PCP - General Internal Medicine 09/08/13 Guerita Holbrook, DIVINE Specialty Director Client Neurology 06/22/15 02/28/21 Erick Hickman MD [address] [place] [address] [id number] [place] [address] Assigned Neuroscience Provider 04/27/20 Boy Rousseau MD [address] [place] [address] [address] Assigned Surgical Provider 04/27/20 12/26/23 documented as of this encounter
--- OUTSIDE RECORDS SUMMARY | 2024-06-08 08:35 | XMS_ITS | Encounter Summary ---
Author Organization [place] Address [address] [place] [address] Care Team Providers Care Log Buyer Name Role Phone Jacobo Campos MD Primary Care Provider Guerita Holbrook RN Unavailable Erick Hickman MD Unavailable [phone] Boy Rousseau MD Unavailable [phone] Reason for Visit * Reason Onset Date Comments Call Back 11/28/2020 medical card for flight Encounter Details Date Type Department Care Team (Late st Contact Info) Description 11/28/2020 Telephone [facility] [address] 3rd [place] [address] Boy Rousseau MD [address] [place] [address] [id number] [place] [address] Call Back (medical card for [...] file Legal Sex Female 10:56 AM DIRECTOR OF CLINICAL APPLICATIONS Gender Identity Not on file Sexual Orientation Not on file documented as of this encounter Patient Instructions * Patient Instructions* Dian Gibbs RN - 11/28/2020 11:36 AM CDT Regarding: Eliz Roth : 1970 CEREBRAL DEVICES IMPLANTED 11/23/2019: EMBOLIC SUBSTANCE/DEVICE WEB SL 4X3 STENT NEUROFORM ATLAS [id number] 11/23/2019 documented in this encounter Miscellaneous Notes * Telephone Encounter - Alecia Magallon CMA - 11/30/2020 2:24 PM CDT Spoke to patient let her know it is ok to fly without medical card per IDVINE Bearden I did asked patient if she wanted me to send her the information that was sent to me by RN patient stated no she just wanted to know if it was ok for her to fly without medical card. Patient aware and has no other questions or concerns at this time. * Telephone Encounter - Joselyn Everett - 11/28/2020 11:36 AM CDT [facility] Call Center Phone Message May a [...] st Contact Info) Description 06/21/2024 10:00 AM DIRECTOR OF CLINICAL APPLICATIONS Virtual Visit [facility] Neurosurgery Clinic [address] 3rd [place] [address] Boy Rousseau MD [address] [place] [address] [id number] [place], [place] 178195 documented as of this encounter Visit Diagnoses Not on filedocumented in this encounter Care Teams Log Buyer Relationship Specialty Start Date End Date Jacobo Campos MD [facility] [address] [place] [address] PCP - General Internal Medicine 09/08/13 Guerita Holbrook, DIVINE Specialty Pin Maker Neurology 06/22/15 02/28/21 Erick Hickman MD [address] [place] [id number] [address] Assigned Neuroscience Provider 04/27/20 Boy Rousseau MD [address] [place], [place] [id number], [place] [address] Assigned Surgical Provider 04/27/20 12/26/23 documented as of this encounter
--- OUTSIDE RECORDS SUMMARY | 2024-06-08 08:35 | XMS_ITS | Encounter Summary ---
Author Organization [place] Address [address] [place] [address] Care Team Providers Care Senior Merchandiser Name Role Phone Jacobo Campos MD Primary Care Provider Erick Hickman MD Unavailable [phone] Encounter Details Date Type Department Care Team (Latest Contact Info) Description 05/26/2024 Travel Social History Tobacco Use Types Packs/Day [...] on file Legal Sex Female 10:56 AM EGG TRAYER Gender Identity Not on file Sexual Orientation Not on file documented as of this encounter Plan of Treatment Upcoming Encounters Date Type Department Care Team (Late st Contact Info) Description 06/21/2024 10:00 AM EGG TRAYER Virtual Visit [facility] Neurosurgery Clinic [address] 3rd [place] [address] Boy Rousseau MD [address] [place] [address] [id number] [place] [address] documented as of this encounter Visit Diagnoses Not on filedocumented in this encounter Care Teams Senior Merchandiser Relationship Specialty Start Date End Date Jacobo Campos MD [facility] [address] [place] [address] PCP - General Internal Medicine 09/08/13 Erick Hickman MD [address] [place], [place] [id number] [address] Assigned Neuroscience Provider 04/27/20 documented as of this encounter
--- OUTSIDE RECORDS SUMMARY | 2024-06-08 08:35 | XMS_ITS | Encounter Summary ---
Author Organization [place] Address [address] [place] [address] Care Team Providers Care Department Helper Name Role Phone Jacobo Campos MD Primary Care Provider Erick Hickman MD Unavailable [phone] Boy Rousseau MD Unavailable [phone] Reason for Visit * Reason Onset Date Comments Medication Request 04/30/2023 teriflunomide (AUBAGIO) 14 MG tablet Encounter Details Date Type Department Care Team (Late st Contact Info) Description 04/30/2023 Telephone [facility] Multiple Sclerosis Clinic [address] [address] Erick Hickman MD [address] [place] [address] - [id number] [place] [address] Medication Request (teriflunomide (AUBAGIO) 14 [...] on file Legal Sex Female 10:56 AM FINANCE ADMIN Gender Identity Not on file Sexual Orientation Not on file documented as of this encounter Miscellaneous Notes * Telephone Encounter - AciViolet suh - 04/30/2023 4:[address] [facility] Call Center Phone Message May a detailed message be left on voicemail: yes Reason for Call: Medication Question or concern regarding medication Prescription Clarification Name of Medication: teriflunomide (AUBAGIO) 14 MG tablet Prescribing Provider: Dr. Hickman Pharmacy: [facility] specialty pharmacy What on the order needs clarification? Mikki from the [facility] specialty pharmacy is requesting the [...] st Contact Info) Description 06/21/2024 10:00 AM FINANCE ADMIN Virtual Visit [facility] Neurosurgery Clinic [address] 3rd [place] [address] Boy Rousseau MD [address] [place], [place] [id number] [address] documented as of this encounter Visit Diagnoses Diagnosis Multiple sclerosis (H) Multiple sclerosis documented in this encounter Care Teams Department Helper Relationship Specialty Start Date End Date Jacobo Campos MD [facility] [address] [place] [address] PCP - General Internal Medicine 09/08/13 Erick Hickman MD [address] [place], [place] [address] [address] Assigned Neuroscience Provider 04/27/20 Boy Rousseau MD [address] [facility] [id number] [place] [address] Assigned Surgical Provider 04/27/20 12/26/23 documented as of this encounter
--- OUTSIDE RECORDS SUMMARY | 2024-06-08 08:35 | XMS_ITS | Encounter Summary ---
Author Organization [place] Address [address] [place] [address]. [place] [address] Care Team Providers Care Umbrella Supervisor Name Role Phone Jacobo Campos MD Primary Care Provider Erick Hickman MD Unavailable [phone] Reason for Visit * Reason Comments Orders Labs at [facility] ospital Encounter Details Date Type Department Care Team (Late st Contact Info) Description 05/26/2024 Documentation Only [facility] [address] [address] Sole Morocho MD [facility]5 TERESA BROWN, [address] [id number] Orders (Labs at [facility] ) Social History Tobacco Use Types Packs/Day [...] on file Legal Sex Female 10:56 AM AIRCRAFT POWERTRAIN REPAIRER Gender Identity Not on file Sexual Orientation Not on file documented as of this encounter Progress Notes * Reinaldo Pavon - 05/26/2024 12:12 PM CST Lab orders for CBC, BMP & Hepatic panel have been faxed over to [facility] per patient's request at [phone]. Reinaldo Pavon EMT May 26, 2024 RAFT POWERTRAIN REPAIRER documented in this encounter Plan of Treatment Upcoming Encounters Date Type Department Care Team (Late st Contact Info) Description 06/21/2024 10:00 AM AIRCRAFT POWERTRAIN REPAIRER Virtual Visit [facility] Neurosurgery [address] 3rd [place] [address] Boy Rousseau MD [address] [place], [place] [address], [place] [address] documented as of this encounter Visit Diagnoses Not on filedocumented in this encounter Care Teams Umbrella Supervisor Relationship Specialty Start Date End Date Jacobo Campos MD [facility] [address] [place] [address] PCP - General Internal Medicine 09/08/13 Erick Hickman MD [address] [place] [address] [id number], [place] [address] Assigned Neuroscience Provider 04/27/20 documented as of this encounter
--- OUTSIDE RECORDS SUMMARY | 2024-06-08 08:35 | XMS_ITS | Encounter Summary ---
Author Organization [place] Address [address] [place] [address] Care Team Providers Care Model Technician Name Role Phone Jacobo Campos MD Primary Care Provider Erick Hickman MD Unavailable [phone] Reason for Visit * Reason Comments MS RECHECK 6 month follow up Encounter Details Date Type Department Care Team ([facility] st Contact Info) Description 05/26/2024 9:30 AM PATTERN SHOP SUPERVISOR Office Visit [facility] Multiple Sclerosis Clinic [address] [address] Erick Hickman MD [address] [place] [address] - [id number] [place], [place] 1563[address] MS (multiple sclerosis) (H) (Primary Dx) Social History Tobacco Use Types Packs/Day Years [...] on file Legal Sex Female 10:56 AM PATTERN SHOP SUPERVISOR Gender Identity Not on file Sexual Orientation Not on file documented as of this encounter Last Filed Vital Signs Vital Sign Reading Time Taken Comments Blood Pressure 142/92 05/26/2024 9:19 AM PATTERN SHOP SUPERVISOR Pulse 73 05/26/2024 9:19 AM PATTERN SHOP SUPERVISOR Temperature - - Respiratory Rate - - Oxygen Saturation 100% 05/26/2024 9:1 9 AM PATTERN SHOP SUPERVISOR Inhaled Oxygen Concentration - - Weight 73.2 kg (161 lb 4.8 oz) 05/26/2024 9:19 AM PATTERN SHOP SUPERVISOR with out shoes Height 169.5 cm (5' 6.73) 05/26/2024 9 :19 AM PATTERN SHOP SUPERVISOR with out shoes Body Mass Index 25.47 05/26/2024 9:19 AM PATTERN SHOP SUPERVISOR documented in this encounter Patient Instructions * Patient Instructions* Erick Hickman MD - 05/26/2024 9:30 AM PATTERN SHOP SUPERVISOR Continue teriflunomide; you may be able to lower your [id number]-[id number] costs for the medication by sourcing this drug from [facility] 2. Continue tamsulosin and nortriptyline as you are doing 3. Blood tests today 4. Return to clinic in approximately one year ERN SHOP SUPERVISOR ERN SHOP SUPERVISOR documented in this encounter Nursing Notes * Reinaldo Pavon - 05/26/2024 9:30 AM CST Chief Complaint Patient presents with MS RECHECK 6 month follow up Vitals were taken and medications were reconciled. Reinaldo Pavon, MARÍA 9:22 AM ERN SHOP SUPERVISOR documented in this encounter Plan of Treatment Upcoming Encounters Date Type Department Care Team (Late st Contact Info) Description 06/21/2024 10:00 AM PATTERN SHOP SUPERVISOR Virtual Visit [facility] Neurosurgery Clinic [address]rd [place] [address] Boy Rousseau MD [address] [place] [address] [id number] [place], [place] 234455 Scheduled Orders Name Type Priority Associated Diagnoses Orde r Schedule CBC with platelets differential Lab Panel Routine MS (multiple sclerosis) (H) Expected: 05/26/2024 (Approximate), Expires: 05/26/2025 Hepatic panel Lab Routine MS (multiple sclerosis) (H) Expected: 05/26/2024 (Approximate), Expires: 05/26/2025 documented as of this encounter Visit Diagnoses Diagnosis MS (multiple sclerosis) (H)- Primary Multiple sclerosis documented in this encounter Care Teams Model Technician Relationship Specialty Start Date End Date Jacobo Campos MD [facility] [address] [place] [address] PCP - General Internal Medicine 09/08/13 Erick Hickman MD [address] [place] [address] [id number] [place] [address] Assigned Neuroscience Provider 04/27/20 documented as of this encounter
--- OUTSIDE RECORDS SUMMARY | 2024-06-08 08:35 | XMS_ITS | Encounter Summary ---
Author Organization [place] Address [address] [place] [address] Care Team Providers Care Maintenance Mechanic Helper Name Role Phone Jacobo Campos MD Primary Care Provider Guerita Holbrook RN Unavailable Erick Hickman MD Unavailable [phone] Boy Rousseau MD Unavailable [phone] Reason for Visit * Reason Onset Date Comments Call Back 10/17/2020 Encounter Details Date Type Department Care Team (Late st Contact Info) Description 10/17/2020 Telephone [facility] Neurosurgery Clinic [address] [place] [address] [address] Boy Rousseau MD [address] [place] [address] [id number] [place] [address] Call Back Social History Tobacco [...] on file Legal Sex Female 10:56 AM DAILY RELEASE AND DUPE PRINTER Gender Identity Not on file Sexual Orientation Not on file documented as of this encounter Miscellaneous Notes * Telephone Encounter - Alecia Magallon CMA - 10/18/2020 11:25 AM CDT Spoke to patient regarding message below. Patient understands and agrees. Patient asked to please fax imaging report to Dr. Gamez at fax# [phone] Campos at fax# [phone]. No other questions or concerns at this time. * Telephone Encounter - Dian Gibbs RN - 10/18/2020 11:06 AM CDT Ok for MRI. Patient has Embolic Substance/Device WEB SL 4x3 and Neuroform [place] Stent 3x21 placed 11/23/19. See implant information for details. * Telephone Encounter - Olga Vargas - 10/17/2020 3:49 PM CDT [facility] Center Phone Message May a detailed message be left on voicemail: yes Reason for Call: Other: Patient calling looking to speak with care team of Dr. Rousseau - states that her provider in [place] is needing clarification/ confirmation if she is able to get MRI on spine and brain and neck area. States that she is having back and spine issues. Please advise and call patient back at your earliest convenience to discuss further Action Taken: Other: [facility] Travel Screening: Not Applicable documented in this encounter Plan of Treatment Upcoming Encounters Date Type Department Care Team (Late st Contact Info) Description 06/21/2024 10:00 AM DAILY RELEASE AND DUPE PRINTER Virtual Visit [facility] Neurosurgery Clinic [address]rd [place] [address] Boy Rousseau MD [address] [place] [address] [id number] [place] [address] documented as of this encounter Visit Diagnoses Not on filedocumented in this encounter Care Teams Maintenance Mechanic Helper Relationship Specialty Start Date End Date Jacobo Campos MD [facility] [address] [place] [address] PCP - General Internal Medicine 09/08/13 Guerita Holbrook, DIVINE Specialty Gas Shovel Operator Neurology 06/22/15 02/28/21 Erick Hickman MD [address] [place] [address] - [id number], [place] 7929[address] Assigned Neuroscience Provider 04/27/20 Boy Rousseau MD [address] [place], [place] [id number], [place] [address] Assigned Surgical Provider 04/27/20 12/26/23 documented as of this encounter
--- OUTSIDE RECORDS SUMMARY | 2024-06-08 08:35 | XMS_ITS | Encounter Summary ---
Author Organization [place] Address [address] [place] [address] Care Team Providers Care Laborer Road Name Role Phone Jacobo Campos MD Primary Care Provider Erick Hickman MD Unavailable [phone] Boy Rousseau MD Unavailable Reason for Visit * Reason Onset Date Comments Medication Compliance Issues 03/31/2023 Cov erage exception form Encounter Details Date Type Department Care Team (Late st Contact Info) Description 03/31/2023 [facility] Multiple Sclerosis Clinic [address] [address] Erick Hickman MD [address] [place] [address] - [id number] [place] [address] Medication Compliance Issues (Coverage exception [...] on file Legal Sex Female 10:56 AM MASTER COASTAL WATERS Gender Identity Not on file Sexual Orientation Not on file documented as of this encounter Miscellaneous Notes * Telephone Encounter - Myesha Goodman - 03/31/2023 10:02 AM CDT [facility] Call Center Phone Message May a detailed message be left on voicemail: yes Reason for Call: Medication Question or concern regarding medication Prescription Clarification Name of Medication: teriflunomide (AUBAGIO) 14 MG tablet [[id number]] (Order [id number]) Prescribing Provider: Erick Hickman MD Pharmacy: NA What on the order needs clarification? Caller Stated the Pt would need a Coverage Exception letter in order to continue the process for the medication under the plan, the form can be filled out on [employer], the pts coverage ends April 05. Action Taken: Message routed to: [facility] Neurology Travel Screening: Not Applicable documented in this encounter Plan of Treatment Upcoming Encounters Date Type Department Care Team (Late st Contact Info) Description 06/21/2024 10:00 AM MASTER COASTAL WATERS Virtual Visit [facility] Neurosurgery Clinic [address] [address] Boy Rousseau MD [address] [place] [address] documented as of this encounter Visit Diagnoses Not on filedocumented in this encounter Care Teams Laborer Road Relationship Specialty Start Date End Date Jacobo Campos MD [facility] [address] [place] [address] PCP - General Internal Medicine 09/08/13 Erick Hickman MD [address] [place], [place] [id number], [place] [address] Assigned Neuroscience Provider 04/27/20 Boy Rousseau MD [address] [place], [place] [address]CJ [place] [address] Assigned Surgical Provider 04/27/20 12/26/23 documented as of this encounter
--- OUTSIDE RECORDS SUMMARY | 2024-06-08 08:35 | XMS_ITS | Encounter Summary ---
Author Organization [place] Address [address] [place] [address] Care Team Providers Care Certified Physician Assistant Name Role Phone Jacobo Campos MD Primary Care Provider Erick Hickman MD Unavailable [phone] Encounter Details Date Type Department Care Team (Late st Contact Info) Description 05/17/2024 [facility] [address]rd [place] [address] Boy Rousseau MD [address] [place], [place] [address] [address] Social History Tobacco Use Types [...] on file Legal Sex Female 10:56 AM DUMP TRUCK DRIVER Gender Identity Not on file Sexual Orientation Not on file documented as of this encounter Miscellaneous Notes * Telephone Encounter - Diana Villar - 05/17/2024 4:04 PM CST Called patient and rescheduled appointment w/ Dr. Jagovidio Quintero via task. -KB TRUCK DRIVER documented in this encounter Plan of Treatment Upcoming Encounters Date Type Department Care Team (Late st Contact Info) Description 06/21/2024 10:00 AM DUMP TRUCK DRIVER Virtual Visit [facility] Neurosurgery [address]rd [place] [address] Boy Rousseau MD [address] [place], [place] [id number] [place] [address] documented as of this encounter Visit Diagnoses Not on filedocumented in this encounter Care Teams Certified Physician Assistant Relationship Specialty Start Date End Date Jacobo Campos MD [facility] [address] [place] [address] PCP - General Internal Medicine 09/08/13 Erick Hickman MD [address] [place] [address] - [id number] [place] [address] Assigned Neuroscience Provider 04/27/20 documented as of this encounter
--- OUTSIDE RECORDS SUMMARY | 2024-06-08 08:35 | XMS_ITS | Encounter Summary ---
Author Organization [place] Address [address] [place] [address]. [place] [address] Care Team Providers Care Account Executive Software Sales Name Role Phone Jacobo Campos MD Primary Care Provider Erick Hickman MD Unavailable [phone] Encounter Details Date Type Department Care Team (Late st Contact Info) Description 05/02/2024 Documentation Only [facility] Neurosurgery [address] [phone] Orion Fernando CMA Social History Tobacco Use [...] on file Legal Sex Female 10:56 AM KENO WRITER/RUNNER Gender Identity Not on file Sexual Orientation Not on file documented as of this encounter Plan of Treatment Upcoming Encounters Date Type Department Care Team (Late Contact Info) Description 06/21/2024 10:00 AM KENO WRITER/RUNNER Virtual Visit [facility] Neurosurgery [address] [phone] Boy Rousseau MD [address] [place] [address] [id number] [place], [place] 4865[address] documented as of this encounter Visit Diagnoses Not on filedocumented in this encounter Care Teams Account Executive Software Sales Relationship Specialty Start Date End Date Jacobo Campos MD [facility] [address] [place] [address] PCP - General Internal Medicine 09/08/13 Erick Hickman MD [address] [facility] [address] Assigned Neuroscience Provider 04/27/20 documented as of this encounter
--- OUTSIDE RECORDS SUMMARY | 2024-06-08 08:35 | XMS_ITS | Encounter Summary ---
Author Organization [place] Address [address] [place] [address] Care Team Providers Care Lead Operator Name Role Phone Jacobo Campos MD Primary Care Provider Guerita Holbrook RN Unavailable Erick Hickman MD Unavailable [phone] Boy Rousseau MD Unavailable [phone] Reason for Visit * Reason Onset Date Comments Appointment 12/08/2019 Upcoming appoint ment question Encounter Details Date Type Department Care Team (Late st Contact Info) Description 12/08/2019 Telephone Health Neurosurgery [address] [facility] [address] 3rd [place] [address] Boy Rousseau MD [address] [place] [address] [id number] [place] [address] Appointment (Upcoming appointment question) Social [...] on file Legal Sex Female 10:56 AM MANAGING EDITOR Gender Identity Not on file Sexual Orientation [...] Antonina Torres - 12/08/2019 8:39 AM CDT [facility] Call Center Phone Message May [...] st Contact Info) Description 06/21/2024 10:00 AM MANAGING EDITOR Virtual Visit [facility] Neurosurgery Clinic [address] 3rd [place] [address] Boy Rousseau MD [address] [place] [address] [id number] [place] [address] documented as of this encounter Visit Diagnoses Not on filedocumented in this encounter Care Teams Lead Operator Relationship Specialty Start Date End Date Jacobo Campos MD [facility] [address] [place] [address] PCP - General Internal Medicine 09/08/13 Guerita Holbrook, RN Specialty Color Control Supervisor Neurology 06/22/15 02/28/21 Erick Hickman MD [address] [place] [address] [id number], [place] [address] Assigned Neuroscience Provider 04/27/20 Boy Rousseau MD [address] [place], [place] [id number], [place] [address] Assigned Surgical Provider 04/27/20 12/26/23 documented as of this encounter
--- OUTSIDE RECORDS SUMMARY | 2024-06-08 08:35 | XMS_ITS | Clinical Summary ---
Author Organization [place] Address [address] [place] [address] Care Team Providers Care Auto Body Shop Manager Name Role Phone Jacobo Campos MD Primary Care Provider Erick Hickman MD Unavailable [phone] Allergies Active Allergy Reactions Criticality Noted Date [...] Date Type Department Care Team Description 05/26/2024 9:30 AM STATISTICAL PROGRAMMER Office Visit [facility] Multiple Sclerosis [address] [address] Erick Hickman MD MS (multiple sclerosis) (H) (Primary Dx) 05/26/2024 Documentation Only [facility] Multiple Sclerosis Clinic [address] [phone] Sole Morocho MD Orders (Labs at [facility] ) 05/26/2024 Travel 05/17/2024 Telephone [facility] Neurosurgery [address] [address] Boy Rousseau MD 05/02/2024 Documentation Only [facility] Neurosurgery Clinic [address] [address] Orion Fernando CMA 05/02/2024 Documentation Only [facility] Neurosurgery [address] [address] Orion Fernando CMA 05/02/2024 Telephone [facility] Neurology Clinic [address] [address] Boy Rousseau MD Clinicals (Needs clinicals for the [facility]) 04/05/2024 Refill M [facility] Multiple Sclerosis Clinic [address] [phone] Erick Hickman MD Medication Refill (Teriflunomide ) from Last 3 Months Family History Medical [...] on file Legal Sex Female 10:56 AM STATISTICAL PROGRAMMER Gender Identity Not on file Sexual Orientation Not on file Last Filed Vital Signs Vital Sign Reading Time Taken Comments Blood Pressure 142/92 05/26/2024 9:19 AM STATISTICAL PROGRAMMER Pulse 73 05/26/2024 9:19 AM STATISTICAL PROGRAMMER Temperature 36.6 C (97.8 F) 05/25/2020 8:33 AM STATISTICAL PROGRAMMER Respiratory Rate 16 05/25/2020 12:3 2 PM STATISTICAL PROGRAMMER Oxygen Saturation 100% 05/26/2024 9:1 9 AM STATISTICAL PROGRAMMER Inhaled Oxygen Concentration - - Weight 73.2 kg (161 lb 4.8 oz) 05/26/2024 9:19 AM STATISTICAL PROGRAMMER with out shoes Height 169.5 cm (5' 6.73) 05/26/2024 9 :19 AM STATISTICAL PROGRAMMER with out shoes Body Mass Index 25.47 05/26/2024 9:19 AM STATISTICAL PROGRAMMER Plan of Treatment Upcoming Encounters Date Type Department Care Team (Late st Contact Info) Description 06/21/2024 10:00 AM STATISTICAL PROGRAMMER Virtual Visit [facility] Neurosurgery Clinic [address] 3rd [place] [address] Boy Rosuseau MD [address] [place] [address] [id number] [place] [address] Health Maintenance Due Date Last Done Comments [...] ZOSTER IMMUNIZATION (1 of 2) 09/21/1991 PAP 05/21/2010 05/21/2007 LIPID 2012 LUNG CANCER SCREENING 2022 GLUCOSE 05/23/2023 05/23/2020, 11/04, 11/23/2019 INFLUENZA VACCINE (#1) 2024 05/04/2015, 2009 ADVANCE CARE PLANNING 11/23/2024 11/24/2019 DTAP/TDAP/TD IMMUNIZATION (6 - Td or Tdap) 12/08/2033 12/09/2023, 04/15/2011, 01/15/1983, Additional history exists RSV VACCINE (1 - 1-dose 75+ series) 09/21/2047 PHQ-2 (once per calendar year) Completed 05/26/2024, 10/08/2023, 09/25/2022, Additional history exists HPV IMMUNIZATION Aged Out No longer e ligible based on patient's age to complete this topic MENINGITIS IMMUNIZATION Aged Out No l onger eligible based on patient's age to complete this topic RSV MONOCLONAL ANTIBODY Aged Out No l onger eligible based on patient's age to complete this topic Medical Devices Implanted Type Area Regional Flatbed Truck Driver Device Identifier Shelf Expiration Date Model / Serial / Lot Embolic Substance/Dev ice Web Sl 4x3-11/23/2019 Implanted:Qty : 1 on 11/23/2019 by Boy Rousseau MD Embolic Substance/D evice Right: Carotid MICROVENTION 02/18/2020 [id number] / / [id number] Stent Neuroform Storden 3x21- 0 Implanted:Qty : 1 on 11/23/2019 by Boy Rousseau MD Stent Right: Carotid CHAYITO 11/17/2023 [id number] / / [id number] Procedures Procedure Name Priority Date/Time Associated Diagnosis Comments BASIC METABOLIC PANEL Routine 05/23/2020 8:48 AM STATISTICAL PROGRAMMER Intracranial aneurysm from Last 3 Months or Most Recently Relevant to Health Maintenance Results * Basic metabolic panel FUTURE anytime (05/23/2020 8:48 AM STATISTICAL PROGRAMMER) Pathologist [facility] Sodium 141 133 - 144 mmol/L 05/23/2020 1:58 PM [facility] Potassium 3.6 3.4 - 5.3 mmol/L 05/23/2020 1:58 PM [facility] Chloride 105 94 - 109 mmol/L 05/23/2020 1:58 PM [facility] Carbon Dioxide 27 20 - 32 mmol/L 05/23/2020 2:[address] [facility] Anion Gap 9 3 - 14 mmol/L 05/23/2020 2:[address] [facility] Glucose 87 70 - 99 mg/dL 05/23/2020 2:[address] [facility] Urea Nitrogen 14 7 - 30 mg/dL 05/23/2020 2:[address] [facility] Creatinine 0.73 0.52 - 1.04 mg/dL 05/23/2020 2:[address] [facility] GFR Estimate >90 >60 mL/min/{1 .73_m2} 05/23/2020 2:[address] [facility] Comment: Non GFR Calc Starting 06/22/2018, serum creatinine based estimated GFR (eGFR) will be calculated using the Chronic Kidney Disease Epidemiology Collaboration (CKD-EPI) equation. GFR Estimate If Black >90 >60 mL/min/{1 .73_m2} 05/23/2020 2:[address] [facility] Comment: GFR Calc Starting 06/22/2018, serum creatinine based estimated GFR (eGFR) will be calculated using the Chronic Kidney Disease Epidemiology Collaboration (CKD-EPI) equation. Calcium 9.5 8.5 - 10.1 mg/dL 05/23/2020 2:26 PM STATISTICAL PROGRAMMER [facility] Blood specimen (specimen) 05/23/2020 8:48 AM STATISTICAL PROGRAMMER 05/23/2020 8:53 AM STATISTICAL PROGRAMMER us Lin Daily MD LAB - BLOOD ORDERABLES Final Res ult [facility] [address] [place] [address], [facility] [phone] [facility] [address] [place] [address] from Last 3 Months or Most Recently Relevant to Health Maintenance [place] [facility] Care Teams Auto Body Shop Manager Relationship Specialty Start Date End Date Jacobo Campos MD [facility][NOTE 3] [address] [place] [address] PCP - General Internal Medicine 09/08/13 Erick Hickman MD [address] [place], [place] [id number] [address] Assigned Neuroscience Provider 04/27/20
--- OUTSIDE RECORDS SUMMARY | 2024-06-08 08:35 | XMS_ITS | Encounter Summary ---
Author Organization [place] Address [address] [place] [address] Care Team Providers Care Otr Owner Operator Truck Driver Name Role Phone Jacobo Campos MD Primary Care Provider Guerita Holbrook RN Unavailable Erick Hickman MD Unavailable [phone] Boy Rousseau MD Unavailable [phone] Reason for Visit * Reason Onset Date Comments Call Back 10/17/2020 Encounter Details Date Type Department Care Team (Late st Contact Info) Description 10/17/[address] [facility] Multiple Sclerosis Clinic [address] [address] Erick Hickman MD [address] [place] [address] - [id number] [place] [address] Call Back Social History Tobacco [...] on file Legal Sex Female 10:56 AM STRAIGHTEDGE MACHINE OPERATOR HELPER Gender Identity Not on file Sexual [...] Olga Vargas - 10/17/2020 3:53 PM CDT [facility] Call Center Phone Message May a detailed message be left on voicemail: yes Reason for Call: Other: Patient calling looking to speak with care team of Dr. Hickman - statesthat her provider in [place] is needing clarification/ confirmation if she is [...] Upcoming Encounters Date Type Department Care Team ([facility] st Contact Info) Description 06/21/2024 10:00 AM STRAIGHTEDGE MACHINE OPERATOR HELPER Virtual Visit [facility] Neurosurgery Clinic [address]rd [place] [address] Boy Rousseau MD [address] [place] [address] [id number] [place] [address] documented as of this encounter Visit Diagnoses Not on filedocumented in this encounter Care Teams Otr Owner Operator Truck Driver Relationship Specialty Start Date End Date Jacobo Campos MD [facility] [address] [place] [address] PCP - General Internal Medicine 09/08/13 Guerita Holbrook, RN Specialty Pond Tender Neurology 06/22/15 02/28/21 Erick Hickman MD [address] [place] [address] [id number] [place] [address] Assigned Neuroscience Provider 04/27/20 Boy Rousseau MD [address] [place], [place] [id number], [place] [address] Assigned Surgical Provider 04/27/20 12/26/23 documented as of this encounter
--- OUTSIDE RECORDS SUMMARY | 2024-06-08 08:35 | XMS_ITS | Encounter Summary ---
Author Organization [place] Address [address] [place] [address]. [place] [address] Care Team Providers Care Plastics Seasoner Operator Name Role Phone Jacobo Campos MD Primary Care Provider Erick Hickman MD Unavailable [phone] Encounter Details Date Type Department Care Team (Late st Contact Info) Description 05/02/2024 Documentation Only [facility] Neurosurgery Clinic [address] 3rd [place] [address] Orion Fernando CMA Social History [...] on file Legal Sex Female 10:56 AM OPERATOR AND TRUCK DRIVER Gender Identity Not on file Sexual Orientation Not on file documented as of this encounter Progress Notes * Orion Fernando CMA - 05/02/2024 1:55 PM CDT Mra referral and notes from 06-03-22 visit was faxed to [facility] [phone] Attn: AVIVA Sears neurosurgery documented in this encounter Plan of Treatment Upcoming Encounters Date Type Department Care Team (Late st Contact Info) Description 06/21/2024 10:00 AM OPERATOR AND TRUCK DRIVER Virtual Visit [facility] Neurosurgery Clinic [address]rd [place] [phone] Boy Rousseau MD [address] [place] [address] [id number] [place] [address] documented as of this encounter Visit Diagnoses Not on filedocumented in this encounter Care Teams Plastics Seasoner Operator Relationship Specialty Start Date End Date Jacobo Campos MD [facility] [address] [place] [address] PCP - General Internal Medicine 09/08/13 Erick Hickman MD [address] [place] [address] - [id number] [place] [address] Assigned Neuroscience Provider 04/27/20 documented as of this encounter
--- OUTSIDE RECORDS SUMMARY | 2024-06-08 08:36 | XMS_ITS | Encounter Summary ---
Author Organization [place] Address [address] [place] [address] Care Team Providers Care House Officer Name Role Phone Jacobo Campos MD Primary Care Provider Guerita Holbrook RN Unavailable Erick Hickman MD Unavailable [phone] Boy Rousseau MD Unavailable [phone] Encounter Details Date Type Department Care Team (Late st Contact Info) Description 08/19/2012 Office Visit-[facility] Shoaib Garduno MD XXX [place] INACTIVE OF DECEMBER 2023 XXX Social History Tobacco Use Types Packs/Day Years Used Date Smoking Tobacco: Never Assessed Comments Unknown Sex and Gender Information Value Date Recorded Sex Assigned at Not on file Legal Sex Female 10:56 AM SUPPLIER QUALITY Gender Identity Not on file Sexual Orientation Not on file documented as of this encounter Progress Notes * Shoaib Garduno - 08/19/2012 1:15 PM CST Qa Internship: Shoaib Garduno Status: Final - Signature Encounter: 2012-08-19 13:15:00.000 Type: Neurology Letter [facility] Neurology Clinic [address] [facility] [address] [place] [address] August 19, 2012 Jacobo Campos M.D. [address] [address] RE: Eliz Hartman : 1970 DHRUV: 08/19/2012 [...] she is going on a vacation to [place] soon. Current medications are Rebif, vitamin D, [...] Strength is normal. Sensory examination is intact. [id number] is done well. Her gait is normal, [...] aware of this while she is in [place]. She will continue to see me at least every six months. Sincerely, Shoaib Garduno MD Department of Neurology [facility] CLH:11 Electronically signed by:Shoaib Garduno M.D. Aug 19 2012 4:30PM SUPPLIER QUALITY LIER QUALITY LIER QUALITY documented in this encounter Plan of Treatment Upcoming Encounters Date Type Department Care Team (Late st Contact Info) Description 06/21/2024 10:00 AM SUPPLIER QUALITY Virtual Visit [facility] [address] 3rd [place] [address] Boy Rousseau MD [address] [place] [address] documented as of this encounter Visit Diagnoses Not on filedocumented in this encounter Care Teams House Officer Relationship Specialty Start Date End Date Jacobo Campos MD [facility] [address] [place] [address] PCP - General Internal Medicine 09/08/13 Guerita Holbrook, RN Specialty Bench Grinder Neurology 06/22/15 02/28/21 Erick Hickman MD [address] [place] [address] [id number] [place] [address] Assigned Neuroscience Provider 04/27/20 Boy Rousseau MD [address] [place] [address] Assigned Surgical Provider 04/27/20 12/26/23 documented as of this encounter
--- OUTSIDE RECORDS SUMMARY | 2024-06-08 08:36 | XMS_ITS | Encounter Summary ---
Author Organization [place] Address [address] [place] [address] Care Team Providers Care Manager Of Software Development Name Role Phone Jacobo Campos MD Primary Care Provider Guerita Holbrook RN Unavailable Erick Hickman MD Unavailable [phone] Boy Rousseau MD Unavailable [phone] Reason for Visit * Reason Onset Date Comments Refill Request 05/18/2019 AUBAGIO 14 MG ta blet Encounter Details Date Type Department Care Team (Late st Contact Info) Description 05/18/2019 [facility] Multiple Sclerosis Clinic [address] [phone] Erick Hickman MD [address] [place] [address] - [id number] [place] [address] Refill Request (AUBAGIO 14 MG tablet) Social History Tobacco Use Types Packs/Day Years Used Date Smoking Tobacco: Former Smokeless Tobacco: Never PHQ-2 Answer Date Recorded PHQ-2 Score 0 07/14/2018 Comments No Sex and Gender Information Value Date Recorded Sex Assigned at Not on file Legal Sex Female 10:56 AM ENVIRONMENTAL DEPARTMENT MANAGER Gender Identity Not on file Sexual [...] this. No further needs at this time. RONMENTAL DEPARTMENT MANAGER * Telephone Encounter - Christopher De Anda - 05/18/2019 1:57 PM CST M [facility] Call Center Phone Message May a detailed message be left on voicemail: no Reason for Call: Medication Refill Request Has the patient contacted the pharmacy for the refill? Yes Name of medication being requested: AUBAGIO 14 MG tablet Provider who prescribed the medication: Dr. Hickman Pharmacy: [facility] Specialty Date medication is needed: [...] routed to: [facility]UR[facility]Y [facility]ULT [facility] RONMENTAL DEPARTMENT MANAGER documented in this encounter Plan of Treatment Upcoming Encounters Date Type Department Care Team (Late st Contact Info) Description 06/21/2024 10:00 AM ENVIRONMENTAL DEPARTMENT MANAGER Virtual Visit [facility] Neurosurgery Clinic [address] 3rd [place] [address] Boy Rousseau MD [address] [place] [address] [id number] [place], [place] [id number] documented as of this encounter Visit Diagnoses Diagnosis Multiple sclerosis (H) Multiple sclerosis documented in this encounter Care Teams Manager Of Software Development Relationship Specialty Start Date End Date Jacobo Campos MD [facility] [address] [place] [address] PCP - General Internal Medicine 09/08/13 Guerita Holbrook, RN Specialty Seamless Tube Drawer Neurology 06/22/15 02/28/21 Erick Hickman MD [address] [place] [address] - [id number], [place] [id number] Assigned Neuroscience Provider 04/27/20 Boy Rousseau MD [address] [place], [place] [address], [place] [id number] Assigned Surgical Provider 04/27/20 12/26/23 documented as of this encounter
--- OUTSIDE RECORDS SUMMARY | 2024-06-08 08:36 | XMS_ITS | Encounter Summary ---
Author Organization [place] Address [address] [place] [address] Care Team Providers Care Temporary Help Agency Referral Clerk Name Role Phone Jacobo Campos MD Primary Care Provider Guerita Holbrook RN Unavailable Erick Hickman MD Unavailable [phone] Boy Rousseau MD Unavailable [phone] Reason for Visit * Reason Onset Date Comments Patient Request 2019 Encounter Details Date Type Department Care Team (Late st Contact Info) Description 2019 [facility] Multiple Sclerosis [address] [address] Erick Hickman MD [address] [place] [address] - [id number] [place] [address] Patient Request Social History Tobacco Use Types Packs/Day Years Used Date Smoking Tobacco: Former Smokeless Tobacco: Never PHQ-2 Answer Date Recorded PHQ-2 Score 0 07/14/2018 Comments No Sex and Gender Information Value Date Recorded Sex Assigned at Not on file Legal Sex Female 10:56 AM NANOTECHNOLOGIST Gender Identity Not on file Sexual Orientation [...] a PA. She states it is a [employer]Text [employer] vendor that send out the authorization. It is suppose to come from her primary care provider and MD performing procedure. Patient just wants to ensure that procedure will be covered. Message sent to Financial Counseling to see if they are able to assist. * Telephone Encounter - Thea Obrienily - 2019 9:27 AM CDT [facility] Call Center Phone Message May [...] st Contact Info) Description 06/21/2024 10:00 AM NANOTECHNOLOGIST Virtual Visit [facility]surgery Clinic [address]rd [place] [phone] Boy Rousseau MD [address] [place] [address] [id number] [place] [address] documented as of this encounter Visit Diagnoses Not on filedocumented in this encounter Care Teams Temporary Help Agency Referral Clerk Relationship Specialty Start Date End Date Jacobo Campos MD [facility] [address] [place] [address] PCP - General Internal Medicine 09/08/13 Guerita Holbrook, DIVINE Specialty Glass Calibrator Neurology 06/22/15 02/28/21 Erick Hickman MD [address] [place] [address] - [id number], [place] [address] Assigned Neuroscience Provider 04/27/20 Boy Rousseau MD [address] [place] [address] [id number], [place] [address] Assigned Surgical Provider 04/27/20 12/26/23 documented as of this encounter
--- OUTSIDE RECORDS SUMMARY | 2024-06-08 08:36 | XMS_ITS | Encounter Summary ---
Author Organization [place] Address [address] [place] [address] Care Team Providers Care Chef Passenger Vessel Name Role Phone Jacobo Campos MD Primary Care Provider Guerita Holbrook RN Unavailable Erick Hickman MD Unavailable [phone] Boy Rousseau MD Unavailable [phone] Reason for Visit * Reason Onset Date Comments Orders 07/12/2019 MRI head, Spine Encounter Details Date Type Department Care Team (Late st Contact Info) Description 07/12/2019 [facility] Multiple Sclerosis Clinic [address] [address] Erick Hickman MD [address] [place] [address] - [id number] [place] [address] Orders (MRI head, Spine) Social History Tobacco Use Types Packs/Day Years Used Date Smoking Tobacco: Former Smokeless Tobacco: Never PHQ-2 Answer Date Recorded PHQ-2 Score 0 07/14/2018 Comments No Sex and Gender Information Value Date Recorded Sex Assigned at Not on file Legal Sex Female 10:56 AM PANELBOARD OPERATOR Gender Identity Not on file Sexual Orientation Not on file documented as of this encounter Miscellaneous Notes * Telephone Encounter - Charley Horowitz RN - 07/12/2019 10:58 AM CST Orders faxed. Patient made aware of this. LBOARD OPERATOR * Telephone Encounter - Charley Horowitz RN - 07/12/2019 10:37 AM CST Patient is scheduled to see Dr. Hickman 08/18; per the last office note, MD would like MRI of brain and c-spine. Orders placed on behalf of MD. Once orders co-signed, will fax to [facility] (fax [phone]). LBOARD OPERATOR * Telephone Encounter - Carlos Godwin - 07/12/2019 10:26 AM PANELBOARD OPERATOR [facility] Call Center Phone Message May a detailed message be left on voicemail: yes Reason for Call: Order(s): Other: Reason for requested: MRI brain, spine Date needed: as soon as possible Provider name: Marylou Please send order to [place], [place] Action Taken: Message routed to: [facility] neuro LBOARD OPERATOR documented in this encounter Plan of Treatment Upcoming Encounters Date Type Department Care Team ([facility] st Contact Info) Description 06/21/2024 10:00 AM PANELBOARD OPERATOR Virtual Visit [facility] Neurosurgery Clinic [address]rd [place] [address] Boy Rousseau MD [address] [place] [address] [id number] [place] [address] documented as of this encounter Visit Diagnoses Diagnosis Multiple sclerosis (H)- Primary Multiple sclerosis documented in this encounter Care Teams Chef Passenger Vessel Relationship Specialty Start Date End Date Jacobo Campos MD [facility] [address] [place] [address] PCP - General Internal Medicine 09/08/13 Guerita Holbrook, RN Specialty General Milling Superintendent Neurology 06/22/15 02/28/21 Erick Hickman MD [address] [place] [address] - [id number] [place] [address] Assigned Neuroscience Provider 04/27/20 Boy Rousseau MD [address] [place], [place] [id number], [place] [address] Assigned Surgical Provider 04/27/20 12/26/23 documented as of this encounter
--- OUTSIDE RECORDS SUMMARY | 2024-06-08 08:36 | XMS_ITS | Clinical Summary ---
Author Organization [employer] [facility] Address [place], [place] [address] Care Team Providers Care Promotions Specialist Name Role Phone Jacobo Campos MD [...] Type Department Care Team Description 05/08/2024 Refill [facility] [address] [place] [address] Oneal Gamez MD Refill Request (Gabapentin) 03/31/2024 3:00 PM CDT Office Visit [facility] [address] [place] [address] Oneal Gamez MD [facility] (Follow up work comp back, left [...] 83 03/31/2024 3:06 PM CDT Temperature 36.8 C (98.2 F) 03/31/2024 3:06 PM CDT Respiratory Rate 16 09/02/2016 9:30 AM NETWORK SUPPORT ANALYST Oxygen Saturation 98% 03/31/2024 3:06 PM CDT Inhaled Oxygen Concentration - - Weight 75.4 kg (166 lb 3.2 oz) 08/06/2023 1:51 P M NETWORK SUPPORT ANALYST Height 170 cm (5' 6.93) 08/04/2016 9:28 AM NETWORK SUPPORT ANALYST Body Mass Index 26.09 08/04/2016 9:28 AM NETWORK SUPPORT ANALYST Plan of Treatment Health Maintenance Due Date [...] Procedure Name Priority Date/Time Associated Diagnosis Comments 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 Previous [facility]/bx date : None Previous Colposcopy/Bx: None Hormone Usage : None Menstrual Status : Regular Periods Appearance of Cervix : NORMAL [facility]/Bx done today : No HPV Request : Reflex HPV test if PAP Dx ASCUS SPECIMEN SOURCE : Cervical/vaginal ThinPrep Vial, screening SPECIMEN ADEQUACY : Satisfactory for evaluation Endocervical component present. INTERPRETATION/RES ULT: Negative for intraepithelial lesion or malignancy. Cytology 1st Screener : diana Cytology 2nd Screener : darwin Signed by: darwin This specimen was screened by the FDA approved ThinPrep Imaging System and manually reviewed. NOTE: The Pap test is a screening technique, not a diagnostic procedure. It is used primarily to screen for squamous cancers and precursor lesions. Published studies have shown that it is subject to both false negative and false positive results. The pap test should not be used as the sole means to diagnose or exclude pre-malignant and malignant lesions. COLLECTED: 05/21/07 ACCESSIONED: 05/21/07 SIGNED: 06/07/07 [facility] Cervical (Cervical) 05/21/2007 4:49 PM NETWORK SUPPORT ANALYST 05/21/2007 4:45 PM NETWORK SUPPORT ANALYST Janeth Barrett NP PATHOLOGY/CYTOLOGY [facility] INTERNAL ZIP [address] [address] from Last 3 Months or Most Recently Relevant to Health Maintenance Care Teams Promotions Specialist Relationship Specialty Start Date End Date Jacobo Campos MD [address] [place] [address] PCP - General Internal Medicine 10/25/21
--- OUTSIDE RECORDS SUMMARY | 2024-06-08 08:36 | XMS_ITS | Encounter Summary ---
Author Organization [facility] Address [address] [place] [address] Care Team Providers Care Global Chief Experience Officer Name Role Phone Jacobo Campos MD Primary Care Provider Guerita Holbrook RN Unavailable Erick Hickman MD Unavailable [phone] Boy Rousseau MD Unavailable [phone] Reason for Visit * Reason Onset Date Comments Prior Auth - Medication 06/23/2019 teriflun omide (AUBAGIO) 14 MG tablet Call Back 06/23/2019 Encounter Details Date Type Department Care Team (Late st Contact Info) Description 06/23/2019 Telephone [facility] [address] [phone] Erick Hickman MD [address] [place] [address] - [id number] [place] [address] Prior Auth - Medication (teriflunomide (AUBAGIO) 14 MG tablet); Call Back Social History Tobacco Use Types Packs/Day Years Used Date Smoking Tobacco: Former Smokeless Tobacco: Never PHQ-2 Answer Date Recorded PHQ-2 Score 0 07/14/2018 Comments No Sex and Gender Information Value Date Recorded Sex Assigned at Not on file Legal Sex Female 10:56 AM REPAIR ARMATURE WINDER Gender Identity Not on file Sexual Orientation Not on file documented as of this encounter Miscellaneous Notes * Telephone Encounter - Charley Horowitz RN - 07/07/2019 1:20 PM CST Aubagio Rx sent to [facility]. IR ARMATURE WINDER * Telephone Encounter - Tamara Mccullough - 07/07/2019 1:01 PM CST Images from the original note were not included. I spoke with the patient and she can now fill with [facility]. I've already added her insurance through [facility] of [place] and obtained her copay card and added both to their system. A new RX for Aubagio will need to be sent to [facility] to initiate their new patient process. PDM Copay Card: [facility] Of [place] insurance: Thank you, Tamara Mccullough [facility] [address] [place] [address] [email or web address] IR ARMATURE WINDER * Telephone Encounter - Charley Horowitz RN - 07/07/2019 11:48 AM CST Tamara, please see below. Patient states she changed insurance. Can you investigate what pharmacy sheshould use? IR ARMATURE WINDER * Telephone Encounter - Carlos Godwin - 07/07/2019 9:50 AM REPAIR ARMATURE WINDER [facility] Call Center Phone Message May a detailed message be left on voicemail: yes Reason for Call: Other: Rahul calling to request a call back. She states she switched insurance to [employer] and pharmacies to [facility]. She would like to know if she's able to get her Aubagio. (uius , Phone# [phone]) Please call her back to discuss. Action Taken: Message routed to: [facility] neuro IR ARMATURE WINDER * Telephone Encounter - Joy Guevara - 06/24/2019 9:33 AM CST Images from the original note were not included. Prior Authorization Approval Authorization Effective Date: 06/24/2019 Authorization Expiration Date: 06/24/2020 Medication: teriflunomide (AUBAGIO) 14 MG tablet Approved Dose/Quantity: 30 Reference #: [id number] Insurance Company: [employer] [phone] Which Pharmacy is filling the prescription (Not needed for infusion/clinic administered): [facility] [place] [address] [facility]- no interruption in therapy - previous PA was good until 07/08/2019 IR ARMATURE WINDER * Telephone Encounter - Joy Guevara - 06/23/2019 3:11 PM CST PA Initiation Medication: teriflunomide (AUBAGIO) 14 MG tablet Insurance Company: [employer] [phone] Pharmacy Filling the Rx: [facility] [place] [address] [facility] Phone: Filling Pharmacy Fax: Start Date: 06/23/2019 Central Prior Authorization Team Filled out form and faxed it to [facility] fax# [phone] IR ARMATURE WINDER * Telephone Encounter - Felicia Morin - 06/23/2019 10:20 AM CST Images from the original note were not included. IR ARMATURE WINDER documented in this encounter Plan of Treatment Upcoming Encounters Date Type Department Care Team (Late st Contact Info) Description 06/21/2024 10:00 AM REPAIR ARMATURE WINDER Virtual Visit [address] [place] [phone] Boy Rousseau MD [address] [place], [place] [address] [address] documented as of this encounter Visit Diagnoses Diagnosis Multiple sclerosis (H)- Primary Multiple sclerosis documented in this encounter Care Teams Global Chief Experience Officer Relationship Specialty Start Date End Date Jacobo Campos MD [address] [address] PCP - General Internal Medicine 09/08/13 Guerita Holbrook, [facility] Neurology 06/22/15 02/28/21 Erick Hickman MD [address] [place] [address] [id number] [place] [address] Assigned Neuroscience Provider 04/27/20 Boy Rousseau MD [address] [place] [address] Assigned Surgical Provider 04/27/20 12/26/23 documented as of this encounter
[2024-06-08] MEDS: SODIUM CHLORIDE 0.9 % (FLUSH) 10 ML SYRINGE IVF (09:25)
[2024-06-08] MEDS: 0.9 % SODIUM CHLORIDE 500 ML 500 ML 100 ML IV ×2 (09:25→14:30)
--- NOTE | 2024-06-08 09:58 | W.PM.H&PU ---
History & Physical Update History & Physical Update H&P Reviewed and patient assessed: No changes noted
[2024-06-08] MEDS: MIDAZOLAM HCL 1 MG/ML inj IVP (11:05)
[2024-06-08] MEDS: fentaNYL 100 MCG/2 ML inj IVP (11:05)
--- NOTE | 2024-06-08 11:17 | SUR.PREOP ---
TIME?OUT:?1105 PT/RN/MDA?VERIFICATION?OF?SURGICAL?SITE,?PROCEDURE,?AND?CONSENT OBTAINED?PRIOR?TO?INVASIVE?PROCEDURE.
[2024-06-08] MEDS: CEFAZOLIN 2 GM in 0.9 % SODIUM CHLORIDE Mini-bag 100 ML IVPB (11:42)
--- NOTE | 2024-06-08 13:44 | W.ANESCHARGE ---
Anesthesia Charges Start Date/Time Anesthesia Start Date: 06/08/24 Anesthesia Start Time: 11:28 Stop Date/Time Anesthesia Stop Date: 06/08/24 Anesthesia Stop Time: 14:26
--- NOTE | 2024-06-08 13:44 | W.PM.NB ---
Nerve Block Nerve Block Time Seen by Provider: 11:10 Date Seen: 06/08/24 Type of block requested by surgeon for post-operative analgesia: supraclavicular Side: left Time out performed: Yes Verification of patient name: Yes Verification of date of : Yes Site marking: site marked Name of person performing procedure: Shaheen Continuous monitoring Was continuous monitoring of O2 sat, B/P, equipment monitor phototypesetting, recorded every 15 minutes?: Yes Procedure Checklist: sterile prep, needles and gloves Ultrasound guided. Images saved: Yes Medications given in 5ml increments after negative aspiration: Ropivicaine %: 0.5 mL: 20 Needle gauge: 22 Precedex (mcg): 25 Patient tolerated procedure well: Yes Block Charges Block Charge (with Pro Fee): Brachial Plexus Use of Ultrasound Machine for Block: Yes- US Guidance/pain block
--- NOTE | 2024-06-08 14:28 | W.ANESCHARGE ---
Anesthesia Charges Start Date/Time Anesthesia Start Date: 06/08/24 Anesthesia Start Time: 11:28 Stop Date/Time Anesthesia Stop Date: 06/08/24 Anesthesia Stop Time: 14:26
--- NOTE | 2024-06-08 15:19 | PM.ORPRC ---
Procedure Note Date of procedure: 06/08/24 Procedure: PREOPERATIVE DIAGNOSES: 1. Left shoulder rotator cuff tear, massive 3 tendon tear, chronic, with atrophy. 2. Left shoulder adhesions given the chronicity of the rotator cuff tear 3. Left shoulder long head of the biceps rupture, chronic 4. Left shoulder labral tearing near circumferentially. 5. 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 Left shoulder rotator cuff tear, massive 3 tendon tear, chronic, with atrophy. 2. Left shoulder adhesions given the chronicity of the rotator cuff tear 3. Left shoulder long head of the biceps rupture, chronic 4. Left shoulder labral tearing near circumferentially. 5. 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 Left shoulder arthroscopic rotator cuff repair of full-thickness subscapularis, supraspinatus, and infraspinatus 2. Left shoulder arthroscopic lysis of adhesions to mobilize the tissue for improved excursion to allow repair of the rotator cuff. 3. Left shoulder arthroscopic extensive glenohumeral debridement SURGEON: Sunil Desouza MD [employer] SALES ENGINEER: Romy Ram PA-C. Of note, a skilled multimedia production assistant was critical for this case to aide in patient positioning, suture manipulation, arm positioning, instrument positioning, and closure. ANESTHESIA: General plus preoperative supraclavicular block. EBL: 25 mL IMPLANTS: Arthrex 5.5 mm BioComposite corkscrew suture anchor (x3); Arthrex 5.5 mm BioComposite SwiveLock suture anchor (x2); COMPLICATIONS: None evident INDICATIONS: The patient is a pleasant, 53-year-old female who has experienced left shoulder pain that has been increasing in recent time. Physical exam and imaging were consistent with a rotator cuff tear. Given their findings, as well as the weakness and pain, and inadequate response to nonoperative management, recommendation was made for surgery. FINDINGS: Exam under anesthesia revealed stable shoulder with excellent range of motion. The diagnostic arthroscopy revealed grade 3 chondromalacia anterior and superior humeral head. The Subscapularis tendon was torn full thickness and approximately 2/3 of the breadth of the tissue. The long head of the biceps tendon was torn and absent within the articular space of the glenohumeral joint. There was a large biceps stump still attached to the origin. The superior rotator cuff tendon was found to be torn full-thickness and full breadth including both the supraspinatus and infraspinatus with significant retraction. The labrum was torn near circumferentially in a significant manner. No loose bodies were identified within the pouch or subscapularis recess. Adhesions were present within the subacromial space tethering the supraspinatus/infraspinatus on both the superficial and deep surfaces. PROCEDURE: Following a thorough discussion of risks, benefits, and alternatives, consent was obtained and the left shoulder was marked. The patient was brought to the operating room and placed supine on the operating table. Induction of anesthesia was completed after preoperative supraclavicular block was administered in preop holding. Appropriate time out was performed identifying proper patient, site, and procedure. 1 g IV Ancef was administered within 1 hour of incision preoperatively. The left upper extremity was prepped and draped in the appropriate sterile fashion using ChloraPrep prep. This was after the patient was positioned in the beach chair with their head in neutral alignment and all bony prominences well padded. The shoulder was insufflated with 20mL of normal saline via an 18g spinal needle from a posterior approach. An 11 blade skin incision allowed a blunt trochar to be inserted and diagnostic arthroscopy to be performed with the findings as noted above. An anterior portal was established with an outside in technique. This allowed the probe to be inserted and confirm the diagnostic arthroscopic findings. The shaver was then inserted and allowed debridement of the biceps stump, the labrum (near circumferentially), and the loose chondral tissue on the humeral head Following this, the subscapularis was repaired utilizing a 5.5 mm BioComposite corkscrew suture anchor (double loaded). The 4 tails were passed independently and tied providing excellent reapproximation of the subscapularis to the greater tuberosity. Thereafter, the subacromial space was entered. Here, a significant lysis of adhesions was required to both improve visualization as well as mobilization/tissue excursion for the rotator cuff (supraspinatus/infraspinatus). This was distinctly different from the extensive debridement of the glenohumeral joint. Further inspection of the supraspinatus and infraspinatus rotator cuff was performed. This showed the rotator cuff to primarily be a crescent type tear with retraction medially to the glenoid. The tissue quality actually was well preserved as was the bone quality. After gentle decortication, and 5.5 mm double loaded BioComposite corkscrew suture anchors were placed along the medial row. The 4 tails from each anchor were passed independently and eventually tied. This allowed us to stabilize the medial row. Tails were then brought to lateral fixation with 5.5 mm SwiveLock suture anchors (x2). A small dog ear in the anterior aspect was repaired with the eyelet sutures from the posterolateral anchor. The rotator cuff showed excellent reapproximation of the greater tuberosity with good security upon probing. Prior to anchor oil transport driver removal, the eyelet sutures were tugged on for each anchor and found that the anchor had excellent stability within the bone. The shoulder was placed through range of motion and found to be stable. The rotator cuff was re-probed and found to be stable. Instruments were removed. Excess fluid was drained, closure performed with 4-0 Monocryl and Steri-Strips. Dressings were applied. Sling was applied. The patient was awoken from anesthesia and transferred to the PACU in stable condition. A skilled multimedia production assistant was critical for this case to aid in patient positioning, limb positioning, skill to manipulate arthroscopic instruments and camera, suture management, patient safety, and closure. PLAN: 1. Elbow, forearm, wrist and digit range of motion of operative extremity as tolerated. 2. Encouraged ice. 3. Oxycodone for pain as needed. 4. Sling at all times except for ROM and showering. 5. Follow up with PA visit in 1-2 weeks for wound check. Initiate physical therapy following that visit for passive range of motion (to begin approximately week 4 due to the massive tear size). Initiate active assisted range of motion at 7-8 weeks. Strengthening not until approximately 10-12 weeks. May do pendulums now.
== END 2024-06-08 15:58 | disposition home or self-care (01) ==
LOC: OR 08:33
PROVIDERS: PCP Internal Medicine; Visit Provider Orthopaedic Surgery Sports Medicine
PROC: (CPT 29805; principal; 2024-06-08 10:30)
DX: S46.012A Strain of muscle(s) and tendon(s) of the rotator cuff of left shoulder, initial encounter (principal); S43.432A Superior glenoid labrum lesion of left shoulder, initial encounter; S46.112A Strain of muscle, fascia and tendon of long head of biceps, left arm, initial encounter; G89.18 Other acute postprocedural pain; G35 Multiple sclerosis; M94.212 Chondromalacia, left shoulder; M75.02 Adhesive capsulitis of left shoulder
CPT/HCPCS: 29827; 29825; 29823; 01630; 64415; 76942; C1713; J0171; J0330; J0690; J1100; J2250; J2405; J2704; J2795; J3010; J7030; L3670

== ENCOUNTER 2025-01-17 15:23 | Outpatient (CLI) | payer BC, SELFPAY ==
--- NOTE | 2025-01-17 15:40 | CRLHL7_ITS ---
For Patients: As a result of the Century Cures Act, medical imaging exams and procedure reports are released immediately into your electronic medical record. You may view this report before your referring provider. If you have questions, please contact your health care provider. INDICATION: BILATERAL SCREENING MAMMOGRAM, ASYMPOTOMATIC 54 Y/O FEMALE COMPARISON: 05/07/2023, 01/23/2022, 09/18/2020 TECHNIQUE: Digital mammogram in CC and MLO projections including computer-aided detection (CAD) and tomosynthesis. BREAST COMPOSITION: There are scattered areas of fibroglandular density. FINDINGS: No suspicious findings. ASSESSMENT: BI-RADS 1 Negative RECOMMENDATION: Annual screening mammogram. A lay language report of this examination will be provided to the patient. Dictated by: Jax Randolph MD @ 01/18/2025 11:35:16 (Electronically Signed)
== END 2025-01-17 15:24 | disposition home or self-care (01) ==
LOC: MAMMO 15:24
PROVIDERS: PCP Internal Medicine; Visit Provider Internal Medicine
DX: Z12.31 Encounter for screening mammogram for malignant neoplasm of breast (principal)
CPT/HCPCS: 77063; 77067

== ENCOUNTER 2025-03-01 12:29 | Emergency (ER) | payer BC, SELFPAY ==
--- OUTSIDE RECORDS SUMMARY | 2025-03-01 12:31 | XMS_ITS | Encounter Summary ---
Author Organization [place] Address [address] [place] [address] Care Team Providers Care Sap Crm Developer Name Role Phone Jacobo Campos MD Primary Care Provider Erick Hickman MD Unavailable [phone] Boy Rousseau MD Unavailable [phone] Boy Rousseau MD Unavailable [phone] Reason for Visit * Reason Onset Date Comments Prior Auth - Medication 03/09/2023 Aubagio (brand) 14MG Tablets (APPEAL DENIED) Encounter Details Date Type Department Care Team (Late st Contact Info) Description 03/09/2023 [facility] [place] Advice [facility] [address] [address] Erick Hickman MD [address] [place] [address] Prior Auth - Medication (Aubagio (brand) [...] on file Legal Sex Female 10:56 AM COMPUTER NETWORK AND SYSTEMS ENGINEER Gender Identity Not on file Sexual Orientation Not on file documented as of this encounter Miscellaneous Notes * Telephone Encounter - Tamara Mccullough - 05/11/2023 8:02 AM CST Images from the original note were not included. Aubagio appeal denial letter: UTER NETWORK AND SYSTEMS ENGINEER * Telephone Encounter - Tamara Mccullough - 05/01/2023 10:43 AM CDT MEDICATION APPEAL DENIED Medication: AUBAGIO 14 MG PO TABS Insurance Company: [employer] Denial Date: 04/29/2023 Denial Rational: Must try/fail [...] faxed as well. Thank you, Tamara Mccullough [facility] Liaison - Cardiology Neurology [address] [address] [email or web address] * Telephone Encounter - Tamara Mccullough - 04/23/2023 2:00 PM CDT Confirmed that the appeal was resent 04/16, but was closed because they thought it was a duplicate.I spoke with Gege in [facility] and she provided another fax number to resend the appeal request. [phone] also sent to [phone] Thank you, Tamara Mccullough [facility] Liaison - Cardiology Neurology Multiple Sclerosis [address] [address] * Telephone Encounter - Tamara Mccullough - 04/16/2023 12:05 PM CDT Resubmitted appeal with update date, denial letter from 04/08, and OV from 09/2022. Thank you, Tamara Mccullough [facility] Liaison - Cardiology Neurology [address] [address] * Telephone Encounter - CelsonadineTamara - 04/16/2023 10:50 AM CDT Spoke with [facility] Appeals and the applications sales representative stated that since the appeal [...] the PA submission). Thank you, Tamara Mccullough [facility] Liaison - Cardiology Neurology Multiple Sclerosis [address] [address] [email or web address] * Telephone Encounter - JamelRejiradha Simmons - 04/08/2023 12:43 PM CDT Medication Appeal Initiation Medication: AUBAGIO 14 MG PO TABS Appeal Start Date: 04/08/2023 Insurance Company: [facility] Insurance Insurance Comments: Faxed and email appeal letter to [facility] of [place] Thank you, Tamara Mccullough [facility] Liaison - Cardiology Neurology Multiple Sclerosis [address] [address] [email or web address] * Telephone Encounter - Tamara Mccullough - 04/08/2023 12:32 PM CDT Images from the original note were not included. PRIOR AUTHORIZATION DENIED Medication: AUBAGIO 14 MG PO TABS Insurance Company: [facility] - Denial Date: 04/06/2023 Denial Rational: Must try/fail 3 alternative products: Mavenclad, Avonex, Gilenya - Must fail one additional drug since patient has already tried REbif and Glatiramer Appeal Information: Patient Notified: Yes * Telephone Encounter - Tamara Mccullough - 04/06/2023 11:03 AM CDT Images from the original note were not included. PA Initiation Medication: AUBAGIO 14 MG PO TABS Insurance Company: [facility] - Pharmacy Filling the Rx: [facility] - [place], [place] - [address] Filling Pharmacy Phone: Filling Pharmacy Fax: Start Date: 04/06/2023 Thank you, Tamara Mccullough [facility] Liaison - Cardiology Neurology Multiple Sclerosis [address] [address] [email or web address] * Telephone Encounter - Erick Hickman MD [...] are: 1) To source this through the [email or web address] pharmacy (cost as noted) 2) Switch to leflunomide (generic, not specifically approved for MS and may not be covered by insurance but should have very similar effects as Aubagio--it is converted in the body to the active ingredient in Aubagio). Insurance may not cover for this indication, would be about $25/month through [facility] with a GoodRx coupon. Other alternatives would include switching to a different medication or a trial off of disease modifying therapy. If she wants to discuss the latter two options she should make an appointment to discuss further. documented in this encounter Plan of Treatment Upcoming Encounters Date Type Department Care Team (Late st Contact Info) Description 06/15/2025 9:30 AM COMPUTER NETWORK AND SYSTEMS ENGINEER Office Visit [facility] [address] [address] Erick Hickman MD [address] [place] [id number] documented as of this encounter Visit Diagnoses Not on filedocumented in this encounter Care Teams Sap Crm Developer Relationship Specialty Start Date End Date Jacobo Campos MD [facility] [address] [place] [address] PCP - General Internal Medicine 09/08/13 Erick Hickman MD [address] [place] [address] Assigned Neuroscience Provider 04/27/20 Boy Rousseau MD [address] [place] [address] Assigned Surgical Provider 04/27/20 12/26/23 Boy Rousseau MD [address] [place] [address] Assigned Surgical Provider 06/27/24 documented as of this encounter
--- OUTSIDE RECORDS SUMMARY | 2025-03-01 12:31 | XMS_ITS | Encounter Summary ---
Author Organization [place] Address [address] [place] [address] Care Team Providers Care Sap Portal Architect Name Role Phone Jacobo Campos MD Primary Care Provider Guerita Holbrook RN Unavailable Erick Hickman MD Unavailable [phone] Boy Rousseau MD Unavailable [phone] Boy Rousseau MD Unavailable [phone] Encounter Details Date Type Department Care Team (Late st Contact Info) Description 08/19/2012 Office Visit-[facility] Shoaib Garduno MD XXX [place] LICENSE INACTIVE OF DECEMBER 2023 XXX Social History Tobacco Use Types Packs/Day Years Used Date Smoking Tobacco: Never Assessed Comments Unknown Sex and Gender Information Value Date Recorded Sex Assigned at Not on file Legal Sex Female 10:56 AM WEIGHBRIDGE OPERATOR Gender Identity Not on file Sexual Orientation Not on file documented as of this encounter Progress Notes * Shoaib Garduno - 08/19/2012 1:15 PM CST Customer Support Consultant: Shoaib Garduno Status: Final - Signature Encounter: 2012-08-19 13:15:00.000 Type: Neurology Letter [facility] [address] [place] [address] August 19, 2012 [place] [address] RE: Eliz Hartman : 1970 DHRUV: 08/19/2012 [...] she is going on a vacation to [place] soon. Current medications are Rebif, vitamin D, [...] Strength is normal. Sensory examination is intact. Jaamkv-rd-fgpx is done well. Her gait is normal, [...] aware of this while she is in [place]. She will continue to see me at least every six months. Sincerely, Shoaib Garduno MD Department of Neurology [facility]:11 Electronically signed by:Shoaib Garduno M.D. Aug 19 2012 4:30PM WEIGHBRIDGE OPERATOR HBRIDGE OPERATOR HBRIDGE OPERATOR documented in this encounter Plan of Treatment Upcoming Encounters Date Type Department Care Team (Late st Contact Info) Description 06/15/2025 9:30 AM WEIGHBRIDGE OPERATOR Office Visit [facility] Multiple Sclerosis [address] [phone] Erick Hickman MD [address] [place] [address] documented as of this encounter Visit Diagnoses Not on filedocumented in this encounter Care Teams Sap Portal Architect Relationship Specialty Start Date End Date Jacobo Campos MD [facility] [address] [place] [address] PCP - General Internal Medicine 09/08/13 Guerita Holbrook, RN Specialty Stenographer Print Shop Neurology 06/22/15 02/28/21 Erick Hickman MD [address] [place] [address] Assigned Neuroscience Provider 04/27/20 Boy Rousseau MD [address] [place] [address] Assigned Surgical Provider 04/27/20 12/26/23 Boy Rousseau MD [address] [place] [address] Assigned Surgical Provider 06/27/24 documented as of this encounter
--- OUTSIDE RECORDS SUMMARY | 2025-03-01 12:31 | XMS_ITS | Encounter Summary ---
Author Organization [place] Address [address] [place] [address] Care Team Providers Care Escrow Officer Name Role Phone Jacobo Campos MD Primary Care Provider Erick Hickman MD Unavailable [phone] Boy Rousseau MD Unavailable [phone] Boy Rousseau MD Unavailable [phone] Encounter Details Date Type Department Care Team (Late st Contact Info) Description 04/30/2023 [facility] Medical Advice [facility] [address] [place] [phone] Tamara Mccullough Social History Tobacco Use [...] on file Legal Sex Female 10:56 AM CERAMIC WORKER Gender Identity Not on file Sexual Orientation Not on file documented as of this encounter Plan of Treatment Upcoming Encounters Date Type Department Care Team (Late st Contact Info) Description 06/15/2025 9:30 AM CERAMIC WORKER Office Visit [facility] [address] [address] Erick Hickman MD [address] [place] [address] documented as of this encounter Visit Diagnoses Not on filedocumented in this encounter Care Teams Escrow Officer Relationship Specialty Start Date End Date Jacobo Campos MD [facility] [address] [place] [address] PCP - General Internal Medicine 09/08/13 Erick Hickman MD [address] [place] [address] Assigned Neuroscience Provider 04/27/20 Boy Rousseau MD [address] [place] [address] Assigned Surgical Provider 04/27/20 12/26/23 Boy Rousseau MD [address] [place] [address] Assigned Surgical Provider 06/27/24 documented as of this encounter
--- OUTSIDE RECORDS SUMMARY | 2025-03-01 12:31 | XMS_ITS | Clinical Summary ---
Author Organization [facility] Address [address] [place] [address] Care Team Providers Care Cotton Weigher Operator Name Role Phone Jacobo Campos MD Primary Care Provider Allergies Active Allergy Reactions Criticality Noted Date Comments Glatiramer Acetate Other - Describe In Comment Field High 03/26/2015 Skin and fever Medications multivitamin (MVI) tablet Take 1 tablet by mouth once daily. 0 0 Active cholecalciferol (VITAMIN D-3) 2,000 unit capsule Take 1 capsule by mouth once daily. 0 7 Active cyanocobalamin (VITAMIN B-12) 1,000 mcg tablet Take 1 tablet by mouth once daily. 0 7 Active estradiol 0.1 mg/24 hr (ESTRADERM; VIVELLE-DOT) patch twice and w 7 Active biotin 100 mg/gram powd Mix 1 [...] Length of Use: 99 months 1 Each 1 Active tiZANidine (ZANAFLEX) 4 mg tabletIndications :Lumbar radiculopathy TAKE 1 TABLET(4 MG) BY MOUTH EVERY 6 HOURS NEEDED FOR MUSCLE SPASM 24 Tablet 1 4 Active teriflunomide (AUBAGIO) 14 mg tablet Take 1 tablet (14 mg) by mouth daily 90 Tablet 3 02/22/2025 9:03 AM CDT 4 Active gabapentin (NEURONTIN) 300 mg capsuleIndication s:Lumbar radiculopathy TAKE 1 CAPSULE(300 MG) BY MOUTH THREE TIMES DAILY 270 Capsule 4 Active furosemide (LASIX) 20 mg tablet Take 20 mg by mouth once daily if needed. 5 Active hydrOXYzine pamoate (VISTARIL) 25 mg capsule Take 25 mg by mouth 3 times daily if needed (for pain). 5 Active nortriptyline (PAMELOR) 25 mg capsule Take 50 mg by mouth at bedtime. Active trimethoprim-sulf amethoxazole 160-800 mg tab Take 1 Tablet by mouth once daily if needed (EACH DAY YOU HAVE INTERCOURSE TO PREVENT UTI). 5 Active tamsulosin 0.4 mg capsule Take 0.4 mg by mouth once daily after a meal. 5 Active Active Problems Problem Noted Date Diagnosed Date Acetabular labrum tear, left, sequela 09/24/2023 Piriformis syndrome of left side 09/24/2023 Greater trochanteric bursitis of left hip 2023 Lumbar and sacral osteoarthritis 09/24/2023 Neurogenic bladder 02/18/2016 Recurrent UTI 02/18/2016 Multiple sclerosis 10/12/2010 COUGH 02/25/2000 Immunizations Immunization Administration Dates Next Due DTP 1970 MMR [...] Paying Living Expenses Not on file 07/06/2021 Comments No Sex and Gender Information Value Date Recorded Sex Assigned at Not on file Legal Sex Female 5:24 AM ASSOCIATE PARTNER Gender Identity Not on file Sexual Orientation Not on file Obstetrics History Last Filed Vital Signs Vital Sign Reading Time Taken Comments Blood Pressure 113/78 03/31/2024 3:06 PM CDT Pulse 83 03/31/2024 3:06 PM CDT Temperature 36.8 C (98.2 F) 03/31/2024 3:06 PM CDT Respiratory Rate 16 09/02/2016 9:30 AM ASSOCIATE PARTNER Oxygen Saturation 98% 03/31/2024 3:06 PM CDT Inhaled Oxygen Concentration - - Weight 75.4 kg (166 lb 3.2 oz) 08/06/2023 1:51 P M ASSOCIATE PARTNER Height 170 cm (5' 6.93) 08/04/2016 9:28 AM ASSOCIATE PARTNER Body Mass Index 26.09 08/04/2016 9:28 AM ASSOCIATE PARTNER Plan of Treatment Health Maintenance Due Date Last Done Comments Tetanus booster 09/21/1983 HIV for age 15-65 09/21/1987 Hepatitis C screening for age 18-79 1990 Hepatitis B series for 19+ ( 1 of 3 - 19+ 3-dose series) 09/21/1991 Pap test for age 21-65 05/21/2010 05/21/2007, 2004 Depression screening for age 12+ 07/24/2017 07/24/19 17 BMI (ht and wt on same day) for age 18+ 08/04/2017 08/04/2016, 07/24/2016, 02/18/2016 Colonoscopy through age 75 2017 Lipids for age 45-75 2017 Mammogram for age 45-75 2017 Pneumococcal series for age 50+ (1 of 1 - PCV) 2022 Zoster (shingles) series for age 50+ (1 of 2) 2022 COVID-19 vaccine series ( season) 2024 Influenza Vaccine (#1) 2025 Procedures Procedure Name Priority Date/Time Associated Diagnosis Comments YOUTH SPECIALIST THIN PREP PAP SCREEN IMAGED Routine 05/21/2007 4:49 PM ASSOCIATE PARTNER Screening Malignant Neoplasms Cervix from Last 3 Months or Most Recently Relevant to Health Maintenance Results * YOUTH SPECIALIST THIN PREP PAP SCREEN IMAGED (05/21/2007 4:49 PM ASSOCIATE PARTNER) CYTOLOGY CYTOPATHOLOGY REPORT [facility] Status: Final Report [id number] CLINICAL INFORMATION LMP : 05/02/07 Previous Pap Date : 2004 Previous PAP Dx : Negative for intraepithelial lesion or malignancy. Previous Inchelium/bx date : None Previous Colposcopy/Bx: None Hormone Usage : None Menstrual Status : Regular Periods Appearance of Cervix : NORMAL Inchelium/Bx done today : No HPV Request : [...] lesions. COLLECTED: 05/21/07 ACCESSIONED: 05/21/07 SIGNED: 06/07/07 [facility] Cervical (Cervical) 05/21/2007 4:49 PM ASSOCIATE PARTNER 05/21/2007 4:45 PM ASSOCIATE PARTNER us Janeth Barrett NP PATHOLOGY/CYTOLOGY Final Res ult Performing Organization Address City/State/[facility] Co de Phone Number [facility] INTERNAL ZIP [phone] [address] from Last 3 Months or Most Recently Relevant to Health Maintenance [place] [address] [address] [facility] [place] [address] Care Teams Cotton Weigher Operator Relationship Specialty Start Date End Date Jacobo Campos MD [address] [place] [address] PCP - General Internal Medicine 10/25/21
--- OUTSIDE RECORDS SUMMARY | 2025-03-01 12:32 | XMS_ITS | Clinical Summary ---
Author Organization [place] Address [address] [place] [address] Care Team Providers Care Procurement Engineer Name Role Phone Jacobo Campos MD Primary Care Provider Erick Hickman MD Unavailable [phone] Boy Rousseau MD Unavailable [phone] Allergies Active Allergy Reactions Criticality Noted Date [...] mild pain Active teriflunomide (AUBAGIO) 14 MG tabletIndication s:Multiple sclerosis (H) Take 1 tablet (14 mg) by mouth daily 90 tablet 3 4 Active tamsulosin (FLOMAX) 0.4 MG capsuleIndicatio ns:Neurogenic bladder TAKE 1 CAPSULE(0.4 MG) BY MOUTH DAILY 90 capsule 3 5 Active nortriptyline (PAMELOR) 25 MG capsuleIndicatio ns:Nonintractabl e headache, unspecified chronicity pattern, unspecified headache type TAKE 2 CAPSULES BY MOUTH AT BEDTIME 180 capsule 3 5 Active Active Problems Problem Noted Date Diagnosed Date Intracranial aneurysm 11/23/2019 Leukopenia 01/25/2015 Multiple sclerosis 09/15/2013 Family History Medical History Relation Comments Multiple Sclerosis Sister Relation Status Comments Sister Social History Tobacco Use Types Packs/Day Years Used Date Smoking Tobacco: Former Smokeless Tobacco: Never Tobacco Cessation:Counseling Given: Not Answered Alcohol Use Standard Drinks/Week Comments Yes 0 (1 standard drink = 0.6 oz pur e alcohol) occasional PHQ-2 Answer Date Recorded PHQ-2 Score 0 06/21/2024 Adolescent Education Answer Date Record ed Getting School Help Needed Not on file 03/27 Comments No Sex and Gender Information Value Date Recorded Sex Assigned at Not on file Legal Sex Female 10:56 AM ONYX CHIP TERRAZZO WORKER Gender Identity Not on file Sexual Orientation Not on file Last Filed Vital Signs Vital Sign Reading Time Taken Comments Blood Pressure 142/92 05/26/2024 9:19 AM ONYX CHIP TERRAZZO WORKER Pulse 73 05/26/2024 9:19 AM ONYX CHIP TERRAZZO WORKER Temperature 36.6 C (97.8 F) 05/25/2020 8:33 AM ONYX CHIP TERRAZZO WORKER Respiratory Rate 16 05/25/2020 12:32 PM ONYX CHIP TERRAZZO WORKER Oxygen Saturation 100% 05/26/2024 9:19 AM ONYX CHIP TERRAZZO WORKER Inhaled Oxygen Concentration - - Weight 73 kg (161 lb) 06/21/2024 9:57 AM ONYX CHIP TERRAZZO WORKER Height 169.5 cm (5' 6.73) 06/21/2024 9:57 AM CS T Body Mass Index 25.42 06/21/2024 9:57 AM ONYX CHIP TERRAZZO WORKER Plan of Treatment Upcoming Encounters Date Type Department Care Team (Late st Contact Info) Description 06/15/2025 9:30 AM ONYX CHIP TERRAZZO WORKER Office Visit [facility] [address] [address] Erick Hickman MD [address] [place] [address] [phone] Health Maintenance Due Date Last Done Comments ANNUAL REVIEW OF HM ORDERS 1972 CT COLONOGRAPHY 1972 FIT 1972 FLEX SIG 1972 MAMMO SCREENING 1972 sDNA (Cologuard) 1972 YEARLY PREVENTIVE VISIT 09/21/1975 COVID-19 VACCINE (#1) 1977 COLONOSCOPY 1982 COLORECTAL CANCER SCREENING 1982 HIV SCREENING 09/21/1987 HEPATITIS C SCREENING 1990 HEPATITIS B VACCINE (1 of 3 - 19+ 3-dose series) 09/21/1991 PNEUMOCOCCAL VACCINE 50+ YEARS (1 of 2 - PCV) 09/21/1991 ZOSTER VACCINE (1 of 2) 09/21/1991 PAP 05/21/2010 05/21/2007 LIPID 2012 DTAP/TDAP/TD VACCINE (5 - Td or Tdap) 04/15/2021 04/15/2011, 01/15/1983, 01/12/1980, Additional history exists LUNG CANCER SCREENING 2022 DIABETES SCREENING 05/23/2023 05/23/2020, 0 11/23/2019, 11/23/2019 PHQ-2 (once per calendar year) 2024 06/21/2024, 05/26/2024, 10/08/2023, Additional history exists ADVANCE CARE PLANNING 11/23/2024 11/24/2019 INFLUENZA VACCINE (#1) 2025 05/04/2015, 2009 HPV VACCINE (No Doses Required) Completed MENINGITIS VACCINE Aged Out No longer eligible based on patient's age to complete this topic Medical Devices Implanted Type Area Pairer Substandard Device Identifier Shelf Expiration Date Model / Serial / Lot Embolic Substance/Dev ice Web Sl 4x3-11/23/2019 Implanted:Qty : 1 on 11/23/2019 by Boy Rousseau MD Embolic Substance/D evice Right: Carotid MICROVENTION 02/18/2020 [id number] / / [id number] Stent Neuroform [place] 3x21- 0 Implanted:Qty : 1 on 11/23/2019 by Boy Rousseau MD Stent Right: Carotid CHAYITO 11/17/2023 [id number] / / [id number] Procedures Procedure Name Priority Date/Time Associated Diagnosis Comments BASIC METABOLIC PANEL Routine 05/23/2020 8:48 AM ONYX CHIP TERRAZZO WORKER Intracranial aneurysm from Last 3 Months or Most Recently Relevant to Health Maintenance Results * Basic metabolic panel FUTURE anytime (05/23/2020 8:48 AM ONYX CHIP TERRAZZO WORKER) Sodium 141 133 - 144 mmol/L 05/23/2020 1:58 PM [facility] Potassium 3.6 3.4 - 5.3 mmol/L 05/23/2020 1:58 PM [facility] Chloride 105 94 - 109 mmol/L 05/23/2020 1:58 PM [facility] Carbon Dioxide 27 20 - 32 mmol/L 05/23/2020 2:26 PM [facility] Anion Gap 9 3 - 14 mmol/L 05/23/2020 2:26 PM [facility] Glucose 87 70 - 99 mg/dL 05/23/2020 2:26 PM [facility] Urea Nitrogen 14 7 - 30 mg/dL 05/23/2020 2:26 PM [facility] Creatinine 0.73 0.52 - 1.04 mg/dL 05/23/2020 2:26 PM [facility] GFR Estimate >90 >60 mL/min/{1 .73_m2} 05/23/2020 2:26 PM [facility] Comment: Non GFR Calc Starting 06/22/2018, serum creatinine based estimated GFR (eGFR) will be calculated using the Chronic Kidney Disease Epidemiology Collaboration (CKD-EPI) equation. GFR Estimate If Black >90 >60 mL/min/{1 .73_m2} 05/23/2020 2:26 PM [facility] Comment: GFR Calc Starting 06/22/2018, serum creatinine based estimated GFR (eGFR) will be calculated using the Chronic Kidney Disease Epidemiology Collaboration (CKD-EPI) equation. Calcium 9.5 8.5 - 10.1 mg/dL 05/23/2020 2:26 PM ONYX CHIP TERRAZZO WORKER [facility] Blood specimen (specimen) 05/23/2020 8:48 AM ONYX CHIP TERRAZZO WORKER 05/23/2020 8:53 AM ONYX CHIP TERRAZZO WORKER us Lin Daily MD LAB - BLOOD ORDERABLES Final Res ult [facility] [address] [place] [address], [facility] [phone] [facility] [address] [place] [address] from Last 3 Months or Most Recently Relevant to Health Maintenance [place] [facility] [place] Care Teams Procurement Engineer Relationship Specialty Start Date End Date Jacobo Campos MD [facility] [address] [place] [address] PCP - General Internal Medicine 09/08/13 Erick Hickman MD [address] [place] [address] Assigned Neuroscience Provider 04/27/20 Boy Rousseau MD [address] [place] [address] [id number] [place] [address] Assigned Surgical Provider 06/27/24
[2025-03-01 12:53] VITALS: BP 122/87; PULSE 88; RESP 16; TEMP 36.2; O2SAT 100; BMI 27.4
--- NOTE | 2025-03-01 13:03 | ED.GENADULT ---
HPI - General Adult General Chief complaint: Extremity Pain/Injury, Upper Stated complaint: right shoulder pain Time Seen by Provider: 03/01/25 13:03 History of Present Illness HPI narrative: Pt has had Right shoulder pain x3days. No specific injury, does have hx of surgery on that shoulder and has been doing outdoor chores. Was at PT the other day for left shoulder. Has MS, unsure if this is related to MS flare or something else. Rates pain . Has an appt with [facility] tomorrow but could not wait. Has brain aneurysm and states can only take tylenol which does nothing for me . 54-year-old woman presenting to the emergency depart with complaint of right shoulder pain. This has been going on for few days now. She has been doing more work outside. Does have a history of arthroscopic repair of right rotator cuff with repair of biceps tendon up with the and subacromial decompression. She has been attending physical therapy focused on the left arm. Is able to move the right arm over her head but has a good deal of pain in the anterior shoulder that radiates down the anterior medial upper arm. Does deep ache. Notes a history of coil embolization of a cerebral aneurysm and is recommended not to take NSAIDs. Acetaminophen is not cutting it. Attempted to make an appointment with primary but they are full. Wonders about whether not this might be related to MS. She is not experiencing weakness otherwise. No fever. No complaint of neck or back pain. Related Data Home Medications ?Medication ?Instructions ?Recorded ?Confirmed nortriptyline 25 mg capsule 25 mg PO QDAY 07/02/22 01/25/25 teriflunomide 14 mg tablet 14 mg PO 07/02/22 01/25/25 (Aubagio) aspirin 81 mg chewable tablet 1 tab PO DAILY 07/15/22 01/25/25 tamsulosin 0.4 mg capsule 0.4 mg PO QDAY 09/14/24 01/25/25 Previous Rx's ?Medication ?Instructions ?Recorded nifedipine 10 mg capsule 10 mg PO BID #60 caps 06/15/23 furosemide 20 mg tablet (Lasix) 20 mg PO QAM PRN edema #30 tabs 10/28/24 hydroxyzine pamoate 25 mg capsule 25 mg PO 3XD PRN for pain #30 caps 11/01/24 azithromycin 250 mg tablet See Rx Instructions PO .COMPLEX #6 01/25/25 (Zithromax Z-Yovany) tabs estradiol 0.1 mg/24 hr semiweekly 1 patch transdermal 2XW #24 ea 01/25/25 transdermal patch fluconazole 150 mg tablet 150 mg PO Q3D 2 doses #2 tabs 01/25/25 metronidazole 0.75 % (37.5 mg/5 1 appful vaginal QDAY 5 days #70 01/25/25 gram) vaginal gel grams sulfamethoxazole 800 1 tab PO QDAY #60 tabs 01/25/25 mg-trimethoprim 160 mg tablet Allergies Allergy/AdvReac Type Severity Reaction Status Date / Time glatiramer (copolymer 1) Allergy Verified 01/25/25 09:20 mannitol Allergy fever, Verified 01/25/25 09:20 myalgia, malaise, local rash ibuprofen AdvReac Verified 01/25/25 09:20 naproxen (From Aleve) AdvReac Verified 01/25/25 09:20 Review of Systems Status of ROS: Reports: 6 or more systems reviewed and unremarkable except as noted in History and below [facility] Medical History Sinusitis ?J32.9 - Chronic sinusitis, unspecified (ICD-10) Pharyngitis ?J02.9 - Acute pharyngitis, unspecified (ICD-10) Edema ?R60.9 - Edema, unspecified (ICD-10) Allergic reaction to drug ?T78.40XA - Allergy, unspecified, initial encounter (ICD-10) Chilblains ?T69.1XXA - Chilblains, initial encounter (ICD-10) Sciatica ?M54.30 - Sciatica, unspecified side (ICD-10) Subungual hematoma of digit of hand ?S60.10XA - Contusion of unspecified finger with damage to nail, initial encounter (ICD-10) Sepsis ?A41.9 - Sepsis, unspecified organism (ICD-10) Recurrent urinary tract infection ?N39.0 - Urinary tract infection, site not specified (ICD-10) Recurrent candidiasis of vagina ?B37.31 - Acute candidiasis of vulva and vagina (ICD-10) Postcoital urinary tract infection ?N39.0 - Urinary tract infection, site not specified (ICD-10) On hormone replacement therapy ?Z79.890 - Hormone replacement therapy (ICD-10) Leukopenia ?D72.819 - Decreased white blood cell count, unspecified (ICD-10) History of herpes zoster ?Z86.19 - Personal history of other infectious and parasitic diseases (ICD-10) Hematochezia (04/03/09) ?K92.1 - Melena (ICD-10) Endometriosis (04/03/09) ?N80.9 - Endometriosis, unspecified (ICD-10) Eczema ?L30.9 - Dermatitis, unspecified (ICD-10) Bacterial vaginosis ?N76.0 - Acute vaginitis (ICD-10) ?B96.89 - Other specified bacterial agents as the cause of diseases classified elsewhere (ICD-10) Cerebral aneurysm (2019) ?I67.1 - Cerebral aneurysm, nonruptured (ICD-10) Multiple sclerosis ?G35 - Multiple sclerosis (ICD-10) Surgical History History of arthroscopy of left shoulder (06/08/24) ?Z98.890 - Other specified postprocedural states (ICD-10) S/P coil embolization of cerebral aneurysm (~2019) ?Z98.890 - Other specified postprocedural states (ICD-10) Status post hysterectomy with oophorectomy ?Z90.710 - Acquired absence of both cervix and uterus (ICD-10) ?Z90.721 - Acquired absence of ovaries, unilateral (ICD-10) History of exploratory laparotomy ?Z98.890 - Other specified postprocedural states (ICD-10) Status post right rotator cuff repair (10/10/16) ?Z98.890 - Other specified postprocedural states (ICD-10) Family History Sister Multiple sclerosis Breast cancer Maternal Grandmother Stroke Maternal Grandfather Stroke Paternal Grandfather Stroke Paternal Grandmother Breast cancer Mother Heart disease Pancreatic cancer Father Lung cancer Stomach cancer Social History Narrative: Eliz is . Spouse/Partner's name is Beau. 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 Smoker: She is a former smoker: she smoked between age [age]: 1/2 to 1 pack per day. Quit at age 32. Alcohol consumption: Yes. If yes: 3-4 of servings every weekend. Illicit or Recreational drug use: No. Concerns for safety at home/work: No. Would like to discuss issues of abuse: No. Dietary restrictions: No Exercise: Yes: Jogging or power walking 4-5 days per week at least 30-45 minutes per day. Smoking Status: Never smoker Do you use any of these nicotine containing products: None Second hand tobacco smoke exposure: Yes How often do you have a drink containing alcohol: 2-4 times a month How many standard drinks containing alcohol do you have on a typical day: 1 or 2 How often do you have six or more drinks on one occasion: Never AUDIT-C Alcohol total score: 2 Non-prescribed substance use: former substance user Caffeine: Yes (hydroxicut) Are you using contraception or practicing any form of control: No (hyst) service: No Exam Narrative: Exam Narrative: Pleasant. Seems uncomfortable. Demonstrating good overhead raise of the right arm and left arm. Neck is supple. No supraclavicular crepitus. Palpable crepitus in the anterior right shoulder. Feels bony not subcutaneous. Sore to resisted external rotation of the shoulder. Sore also to resisted flexion of the elbow. Has good range of motion upper back. No swelling. Does not have pain to palpation in particular under the acromial process. Const: Vital Signs, click to edit/add: Vital Signs - 24 hr 03/01/25 12:53 Temperature 97.2 F L Pulse Rate [Pulse Oximeter] 88 Respiratory Rate 16 Blood Pressure [Ri ght Upper Arm] 122/87 Pulse Oximetry 100 Oxygen Delivery Me thod Room Air Documenting provider has reviewed patient's vital signs: yes Course Vital Signs Vital signs: Initial Vital Signs Temperature 97.2 F L 03/01/25 12:53 Temperature Source Temporal Artery Scan 03/01/25 12:53 Pulse Rate 88 03/01/25 12:53 Respiratory Rate 16 03/01/25 12:53 Blood Pressure 122/87 03/01/25 12:53 Blood Pressure Mean 98 03/01/25 12:53 Blood Pressure Position Sitting 03/01/25 12:53 Pulse Oximetry 100 03/01/25 12:53 Oxygen Delivery Method Room Air 03/01/25 12:53 Vital Signs Temperature 97.2 F L 03/01/25 12:53 Pulse Rate 88 03/01/25 12:53 Respiratory Rate 16 03/01/25 12:53 Blood Pressure 122/87 03/01/25 12:53 Pulse Oximetry 100 03/01/25 12:53 Oxygen Delivery Method Room Air 03/01/25 12:53 Temperature 97.2 F L 03/01/25 12:53 Pulse Rate 88 03/01/25 12:53 Respiratory Rate 16 03/01/25 12:53 Blood Pressure 122/87 03/01/25 12:53 Pulse Oximetry 100 03/01/25 12:53 Oxygen Delivery Method Room Air 03/01/25 12:53 Medical Decision Making MDM Narrative Medical decision making narrative: Think this is likely related to area of the biceps insertion. Radiating along this muscle group as well in her description of pain. Given findings on exam would just do x-ray of the shoulder and anticipate sling with pain meds limited by restrictions due to aneurysm coiling history. Independent review of shoulder x-ray. It is in joint. I do not see fracture. There is osteoarthritic change. Some lucencies as well. Radiology over-read below Indication: Anterior right shoulder pain. Technique: Three views of the right shoulder. Comparison: 07/15/2022. Findings: Normal alignment. No acute fracture seen. 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 Chronic indeterminate lucent lesions are seen within the proximal humerus, not well evaluated. Impression: No acute osseous abnormality. Dictated by Patrice Katz MD @ 03/01/2025 1:35:10 PM Recommended for sling, rest. She does have follow-up with primary care tomorrow. Probably intermittent dosings of ibuprofen type medications would be fine but can discuss this further on follow-up. Declined sling as she already has a couple at home to use. See patient discharge plan for further discussion I think this is likely some aggravation of your biceps tendon. Would recommend resting with 1 of your arm slings from home. I understand you have follow-up with the primary care provider tomorrow. Can discuss next steps in management at that point. Since you are going to PT already, would have them offer some thoughts on what might be going on here and perhaps orthopedics would like to see you sooner than later as well if this discomfort continues for a week. Would ice to 3 times a day over the next few days. And then try to rest with the arm sling over this next week. As discussed, prescribing some [place] from [facility]. Each tablet contains 5 mg of hydrocodone, an opiate, and 325 mg of acetaminophen. Can take up to 1000 mg of acetaminophen per dose. Discharge Plan Discharge Clinical Impression: Right shoulder pain Patient Disposition: Home, Self-Care Condition: Stable Additional Instructions: I think this is likely some aggravation of your biceps tendon. Would recommend resting with 1 of your arm slings from home. I understand you have follow-up with the primary care provider tomorrow. Can discuss next steps in management at that point. Since you are going to PT already, would have them offer some thoughts on what might be going on here and perhaps orthopedics would like to see you sooner than later as well if this discomfort continues for a week. Would ice to 3 times a day over the next few days. And then try to rest with the arm sling over this next week. As discussed, prescribing some [place] from [facility]. Each tablet contains 5 mg of hydrocodone, an opiate, and 325 mg of acetaminophen. Can take up to 1000 mg of acetaminophen per dose. Prescriptions: No Action estradiol 0.1 mg/24 hr patch semiweekly 1 patch transdermal 2XW Qty: 24 4RF sulfamethoxazole-trimethoprim 800-160 mg tablet 1 tab PO QDAY Qty: 60 3RF Rx Instructions: Take one tablet on the days you have intercourse to prevent uti fluconazole 150 mg tablet 150 mg PO Q3D Qty: 2 12RF Rx Instructions: may repeat second dose 72 hrs after first dose if symptoms persist metronidazole 0.75 % (37.5mg/5 gram) gel 1 appful vaginal QDAY 5 Days Qty: 70 12RF nortriptyline 25 mg capsule 25 mg PO QDAY Aubagio 14 mg tablet 14 mg PO aspirin 81 mg tablet,chewable 1 tab PO DAILY tamsulosin 0.4 mg capsule 0.4 mg PO QDAY nifedipine 10 mg capsule 10 mg PO BID Qty: 60 2RF furosemide [Lasix] 20 mg tablet 20 mg PO QAM PRN (Reason: edema) Qty: 30 3RF hydroxyzine pamoate 25 mg capsule 25 mg PO 3XD PRN (Reason: for pain) Qty: 30 2RF azithromycin [Zithromax Z-Yovany] 250 mg tablet See Rx Instructions PO .COMPLEX Qty: 6 0RF Rx Instructions: For 250 mg dose pack: take 500 mg today (day 1), then 250 mg for 4 days (days 2-5) PO Follow Up/Referrals: Jacobo Campos MD [Primary Care Provider, Internal Medicine] Stand Alone Forms: [facility] Info Instructions
--- NOTE | 2025-03-01 13:11 | CRLHL7_ITS ---
For Patients: As a result of the Cures Act, medical imaging exams and procedure reports are released immediately into your electronic medical record. You may view this report before your referring provider. If you have questions, please contact your health care provider. Indication: Anterior right shoulder pain. Technique: Three views of the right shoulder. Comparison: 07/15/2022. Findings: Normal alignment. No acute fracture seen. 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 Chronic indeterminate lucent lesions are seen within the proximal humerus, not well evaluated. Impression: No acute osseous abnormality. Dictated by Patrice Katz MD @ 03/01/2025 1:35:10 PM (Electronically Signed)
== END 2025-03-01 14:07 | disposition home or self-care (01) ==
PROVIDERS: Emergency Provider Family Medicine; PCP Internal Medicine
DX: M25.511 Pain in right shoulder (principal)
CPT/HCPCS: 73030; 99283; 99284

== ENCOUNTER 2025-03-23 09:30 | Outpatient (RCR) | payer OTHER, BC, SELFPAY ==
--- NOTE | 2024-06-28 12:54 | PT.OPEX ---
PT [facility] Outpatient Eval PT [facility] Outpatient Eval Start: 06/28/24 12:09 Freq: Status: Active Protocol: Document 06/28/24 12:10 NGOC (Rec: 06/28/24 12:46 NGOC [id number]) E-signed By Lissy Bryant DPT Physical Therapy Outpatient Evaluation Insurance Information Insurance Name Cody Saxena Medical Diagnosis s/p L RCR 06/08/24 - repair of full thickness tears supraspinatus, infraspinatus, subscap with extensive debridement [facility] Treating Diagnosis s/p L RCR 06/08/24 currently restricted with L UE sling, impaired L shoulder ROM, impaired L shoulder mobility/ strength, impaired functional mobility/use L shoulder/UE, currently off work, interrupted sleep Referring MD Desouza Subjective Subjective Patient reports L shoulder injury 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 She was lifting and felt a pop in her L shoulder. Patient had limited L shoulder ROM and was seen in the ED, referred to ortho. MRI showed RC tear - full thickness tear of 3 RC muscles. Patient reports being on light duty at work after the injury, leading up to her surgery. She has been off work since her surgery. She is currently wearing L UE sling, restricted use of L shoulder/UE. She reports pain 3-4/10, with occasional increased pain with certain positions/activities. She is sleeping in a recliner chair, difficult to find a comfortable position, sleep is interrupted. Patient is doing elbow, wrist, hand ROM. She is letting her elbow stretch into ext at rest. She has difficulty with relaxation to perform codmans - very limited at this time. She is using tylenol, pain meds as needed. Reports some pain control issues after surgery. Patient has follow up with MD 07/22/24. She is R handed. 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 DOI 04/07/24 with light duty leading up to surgery. Precautions Treatment Precautions/Contraindications Hx R RCR 2016 Assessment Assessment/Impression Patient is a 53 year old female s/p L RCR 06/08/24 currently restricted with L UE sling, impaired L shoulder ROM, impaired L shoulder mobility/strength, impaired functional mobility/use L shoulder/UE, currently off work, interrupted sleep. 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 She felt a pop in her L shoulder and then had limited L shoulder ROM. She was seen in the ED, referred to ortho. MRI showed full thickness tears of supraspinatus, infraspinatus, subscap muscles . Patient had L RCR 06/08/24 - repair of full thickness tears supraspinatus, infraspinatus, subscap with extensive debridement GHJ. She is currently restricted in a L UE sling. Patient was able to wean away from the wedge pillow this past week. Per CHETNA Hickey note - patient to start PT at 3 weeks po for PROM. AAROM starting at 7 weeks po. Strengthening at 3+ months po. Patient has follow up scheduled with . Reviewed current home program for elbow/wrist/hand ROM, elbow ext stretching, and L shoulder codmans. Codmans limited at this time secondary to pain, patient unable to relax. Instructed in relaxation strategies, progressing with codmans as able once she is better able to relax - review next session . L shoulder PROM: flex 85 degrees, scap 80 degrees, ER to neutral, IR 50 degrees. Patient with hx of R RCR 2016 with full R shoulder AROM, strength WFL. She is R handed . She reports having a QRC involved in her w/c claim, he was present at the follow up visit with CHETNA Hickey. Patient would benefit from skilled PT for pain/sx management, improved L shoulder ROM, improved L shoulder mobility/ strength, return to full functional use of L shoulder/ UE for daily/work duties/ activities, and establishment of HEP. Plan of Care Rehabilitation Potential Good Physical Therapy Goals 1. Decrease L shoulder pain to less than/equal to 3/10 with daily activities and with the progression of PT activities over the next 8-10 weeks. 2. Improve L shoulder PROM to WFL over the next 6-8 weeks to prepare for return to functional use of L shoulder/UE. 3. Improve L shoulder AROM to WFL over the next 12-16 weeks for return to functional use of L shoulder/ UE with daily/work activities. 4. Improve L shoulder/UE strength over the next 16-20 weeks for return to full functional use of L shoulder/UE with daily activities and full CHARANJIT work duties/activities. 5. Patient will be I with HEP within 20 weeks for progression toward above goals, ongoing self management of pain/sx, ongoing self improvements in ROM/strength/function, and for return to full functional use of L shoulder/UE with daily activities. Coordination/Communication With Referral Source Treatment Plan/Direct Interventions Manual Therapy,Therapeutic Exercises Frequency/Duration 2x/week for 4-5 months Patient Will Be Discharged From Therapy Completion of LTG(s),Skills Plateau,Independent w/HEP, Independently Progressing Evaluation Billing Untimed Code Treatment Minutes 26 Complexity Moderate Certification Information Provider Signature Required Yes Provider Signature Shows Agreement With POC & Medical Necessity Physician NPI Number Write NPI# Here Physician Comment/Change : Physician Signature & Date Requested Please Sign/Date Here
== END 2025-07-03 15:23 | disposition home or self-care (01) ==
PROVIDERS: PCP Internal Medicine; Visit Provider Orthopaedic Surgery Sports Medicine
DX: Z48.89 Encounter for other specified surgical aftercare (principal); Y99.0 Civilian activity done for income or pay; Z51.89 Encounter for other specified aftercare
CPT/HCPCS: 97110; 97140; 97162